=== PATIENT | male | born 1940 | race Caucasian/White ===

== ENCOUNTER → 2016-11-16 | Outpatient (CLI) | payer OTHER ==
[~2016-11-16] MED LIST: ASPEC81 PO; CALC-354 PO; CALC1CAP36 PO; CHOL100010 PO; FLM4 PO; FLR1 PO; INSU1INJ15 SQ; INSUINJ12 SC; INSUINJ14 PO; LISI-789 PO; LSN5 PO; MECL1TAB40 PO; METO50TA7 PO; MISCCAP80 PO; MYCO1TAB7 PO; MYCO360T PO; NVLGI/PEN SC; PRED-301 PO; RPF/8 PO; TACR1CAP PO; VENL37.593 PO
[2016-11-16 09:48] LABS: ALT/SGPT 68 U/L (12-78); AST/SGOT 75 U/L (15-37); BLOOD UREA NITROGEN 21 mg/dl (7-18); BUN/CREATININE RATIO 14.2 (10-20); CARBON DIOXIDE 30 mmol/L (21-32); CHLORIDE 106 mmol/L (98-107); GLUCOSE 95 mg/dl (70-99); SODIUM 144 mmol/L (136-145)
[2016-11-16 09:51] LABS: ALB/GLOB RATIO 1.3 (0.9-2); ALKALINE PHOSPHATASE 96 U/L (45-117)
[2016-11-16 10:07] LABS: ESTIMATED AVERAGE GLUCOSE 114 mg/dl; HA1C FLAG Normal (Normal)
[2016-11-16 10:47] LABS: RATIO 576.2 mcg/mg (0-30.0)
== END | disposition home or self-care (01) ==
LOC: C.LAB1850 07:26
PROVIDERS: ATTEND Family Medicine
DX: I10 Essential (primary) hypertension (principal); E55.9 Vitamin D deficiency, unspecified; E11.21 Type 2 diabetes mellitus with diabetic nephropathy; Z94.4 Liver transplant status

== ENCOUNTER → 2016-11-22 | Outpatient (CLI) | payer OTHER ==
--- NOTE | 2016-11-22 11:48 | DIAGNOSTIC IMAGING REPORT ---
ULTRASOUND ABDOMEN COMPLETE CLINICAL HISTORY: Liver transplant. COMPARISON STUDY: Abdominal CT dated 01/24/2015. TECHNIQUE: Real-time, grayscale, and color flow sonography of the abdomen was performed. Images are reviewed in the transverse and longitudinal planes. FINDINGS: Liver: The liver is normal in size and echotexture, measuring 17.4 cm in length. There is no intrahepatic biliary ductal dilatation. The main portal vein is patent. Gallbladder: The gallbladder is surgically absent. The common bile duct measures up to 0.3 cm in diameter. Pancreas: Visualized portions of the pancreatic head and body are normal in appearance. Spleen: The spleen is enlarged, measuring 17.5 cm in length. Kidneys: The kidneys demonstrate cortical atrophy and are without hydronephrosis. The right kidney measures 10.9 cm in length and the left kidney measures 1.0 cm in length. No shadowing calculi are identified. Abdominal vasculature: Visualized portions of the IVC and abdominal aorta are normal in appearance. Ascites: None. IMPRESSION: 1. No acute sonographic abnormality. 2. The liver is normal in size and echotexture. 3. Splenectomy. Electronically signed by: Geo Ramos M.D. 11/22/2016 11:46 AM Dictated Date/Time: 11/22/2016 11:44 AM
--- NOTE | 2016-11-22 12:10 | DIAGNOSTIC IMAGING REPORT ---
DOPPLER ULTRASOUND OF THE HEPATIC AND PORTAL VASCULATURE CLINICAL HISTORY: Liver transplant. COMPARISON STUDY: Abdominal ultrasound performed concurrently on 11/22/[address] dated 01/24/2015. FINDINGS: Real-time, grayscale, and color Doppler sonography of the hepatic and portal vasculature is performed. The hepatic veins and portal veins are patent with normal venous waveforms and direction of flow. The splenic vein is patent. The IVC is clear as visualized. A hepatic artery was not identified. IMPRESSION: The hepatic and portal vessels are patent with normal direction of flow. See above. Electronically signed by: Geo Ramos M.D. 11/22/2016 12:09 PM Dictated Date/Time: 11/22/2016 12:07 PM
== END | disposition home or self-care (01) ==
LOC: C.ULTR 10:24
PROVIDERS: ATTEND Internal Medicine Gastroenterology
DX: Z94.4 Liver transplant status (principal)

== ENCOUNTER → 2016-12-31 | Outpatient (CLI) | payer OTHER ==
[2016-12-31 17:55] LABS: URINE APPEARANCE CLEAR (CLEAR); URINE BILIRUBIN NEG (NEG); URINE COLOR DK YELLOW; URINE NITRITE NEG (NEG); UROBILINOGEN NEG (NEG)
[2016-12-31 18:00] LABS: MANUAL MICROSCOPIC REQUIRED? NO; REVIEW REQ? NO
[2016-12-31 18:09] LABS: URINE TOTAL PROTEIN 144.4 mg/dl (0-11.9)
== END | disposition home or self-care (01) ==
LOC: C.LABPVFM 11:53
PROVIDERS: ATTEND Internal Medicine
DX: N18.3 Chronic kidney disease, stage 3 (moderate) (principal)

== ENCOUNTER → 2017-01-25 | Day surgery (SDC) | payer OTHER ==
[2017-01-13 15:37] VITALS: BMI 23.0
[~2017-01-25] VITALS: Ht 180.3 cm; Wt 75.0 kg
[~2017-01-25] MED LIST changes: -CHOL100010 PO; -INSUINJ14 PO; +LIDOCAINE HCL 2% 2 ML VIAL (20MG/ML) ONE; -LSN5 PO; +MIDAZOLAM HCL 1 MG/ML 2ML VIAL ONE; -MYCO1TAB7 PO; +ONDANSETRON INJ 2 MG/ML 2 ML VIAL ONE; +PROPOFOL IV EMULSION 10 MG/ML 20 ML VIAL IV ONE; -RPF/8 PO; +SODIUM CHLORIDE 0.9% 500ML 500 ML IV ONE
--- NOTE | 2017-01-25 08:29 | Endo History and Physical ---
History & Physical Date of Service: Jan 25, 2017. Chief Complaint: Screening and S/P Liver transplant Referring Physician: Emigdio Douglass, DO History of Present Illness 76 yo CM who presents for EGD and Colonoscopy secondary to screening and history of liver transplant. Past Medical History Diabetes, Hypertension Past Surgical History Hx Cardiac Surgery: No Hx Internal Defibrillator: No Hx Pacemaker: No Hx Abdominal Surgery: Yes (LIVER TRANSPLANT, RT/LEFT INGUINAL HERNIA) Hx of Implantable Prosthesis: No Hx Post-Op Nausea and Vomiting: No Hx Cancer Surgery: Yes (2 MOHS PROCEDURE (HEAD/FACE)) Hx Thoracic Surgery: No Hx Orthopedic: No (LUMBAR FUSION (HARDWARE)) Hx Urinary Tract Surgery: No Family History None Social History Smoking Status: Former Smoker Hx Substance Use: No Hx Alcohol Use: No Allergies Coded Allergies: Aspirin (Verified Allergy, Unknown, high doses contrindicated d/t hx liver transplant, 01/25/17) Ibuprofen (Verified Adverse Reaction, Unknown, not to take due to transplant, 01/25/17) Current Medications Reported Home Medications Medications Dose Route/Sig Max Daily Dose Days Date Category Dose Instructions Venlafaxine Extended Rel (Venlafaxine Hcl) 37.5 Mg Cap 37.5 Mg PO QAM 01/13/17 Reported Tamsulosin HCl 0.4 Mg Cap 1 Cap PO QPM 01/13/17 Reported Prograf (Tacrolimus) 1 Mg Cap 1 Dose PO BID 01/13/17 Reported TAKES 3 CAP IN AM TAKES 2 CAP IN PM Probiotic (Probiotic Product) 1 Cap Cap 1 Cap PO QAM 01/13/17 Reported Prednisone 5 Mg Tab 5 Mg PO QAM 01/13/17 Reported Novolog Flexpen (Insulin Aspart) 100 Units/Ml Inj 1 Dose SC AC 01/13/17 Reported PER SLIDING SCALE Myfortic (Mycophenolate Sodium) 360 Mg Tab 1 Tab PO BID 01/13/17 Reported Toprol-Xl (Metoprolol Succinate) 50 Mg Tabcr 50 Mg PO QAM 01/13/17 Reported Meclizine HCl 12.5 Mg Tab 1 Tab PO TID PRN 10 01/13/17 Reported Zestril (Lisinopril) 2.5 Mg Tab 1 Tab PO QAM 01/13/17 Reported Calcitriol 0.25 Mcg Cap 1 Cap PO 3XWK 01/13/17 Reported Levemir (Insulin Detemir) Inj 6 Units SC QPM 01/24/15 Reported Caltrate 600+D (Calcium Carbonate-Cholecalcife) 1 Tab Tab 1 Tab PO QAM 09/13/14 Reported Levemir Pen (Insulin Detemir) 100 Unit/ Inj 11 Units SQ QAM 09/13/14 Reported Ecotrin Or Generic * (Aspirin) 81 Mg Ectab 81 Mg PO QAM 03/19/11 Reported Florinef * (Fludrocortisone Acetate) 0.1 Mg Tab 0.1 Mg PO QAM 05/31/10 Reported Vital Signs Weight (Kilograms): 75 Height (Feet): 5 Height (Inches): 11 Physical Exam General Appearance: WD/WN, no apparent distress Respiratory/Chest: Auscultation: breath sounds normal Cardiovascular: Heart Auscultation: RRR Abdomen: Bowel Sounds: normal Inspection & Palpation: soft, non-distended, no tenderness, guarding & rebound Assessment and Plan Assessment: 76 yo CM who presents for EGD and Colonoscopy secondary to screening and history of liver transplant. Plan: Proceed with EGD and colonoscopy.
[2017-01-25 08:31] VITALS: Ht 180.3 cm; Wt 75.0 kg
--- NOTE | 2017-01-25 10:03 | GI REPORT ---
Procedure Date: 01/25/2017 9:31 AM Procedure: Upper GI endoscopy Indications: Screening procedure Medicines: Monitored Anesthesia Care Complications: No immediate complications. Estimated Blood Loss: Estimated blood loss: none. Procedure: Pre-Anesthesia Assessment: - Prior to the procedure, a History and Physical was performed, and patient medications and allergies were reviewed. The patient's tolerance of previous anesthesia was also reviewed. The risks and benefits of the procedure and the sedation options and risks were discussed with the patient. All questions were answered, and informed consent was obtained. Prior Anticoagulants: The patient has taken aspirin, last dose was day of procedure. ASA Grade Assessment: III - A patient with severe systemic disease. After reviewing the risks and benefits, the patient was deemed in satisfactory condition to undergo the procedure. After obtaining informed consent, the endoscope was passed under direct vision. Throughout the procedure, the patient's blood pressure, pulse, and oxygen saturations were monitored continuously. The scope was introduced through the mouth, and advanced to the second part of duodenum. The upper GI endoscopy was accomplished without difficulty. The patient tolerated the procedure well. Findings: The esophagus was normal. The stomach was normal. The examined duodenum was normal. Impression: - Normal esophagus. - Normal stomach. - Normal examined duodenum. - No specimens collected. Recommendation: - Resume previous diet. - Continue present medications. - Return to GI office as previously scheduled. Emigdio Douglass, 01/25/2017 10:03:06 AM This report has been signed electronically. Note Initiated On: 01/25/2017 9:31 AM I attest to the content of the Intraoperative Record and orders documented therein, exceptions below
--- NOTE | 2017-01-25 10:09 | GI REPORT ---
Procedure Date: 01/25/2017 9:47 AM Procedure: Colonoscopy Indications: History of liver transplant Medicines: Monitored Anesthesia Care Complications: No immediate complications. Estimated Blood Loss: Estimated blood loss: none. Procedure: Pre-Anesthesia Assessment: - Prior to the procedure, a History and Physical was performed, and patient medications and allergies were reviewed. The patient's tolerance of previous anesthesia was also reviewed. The risks and benefits of the procedure and the sedation options and risks were discussed with the patient. All questions were answered, and informed consent was obtained. Prior Anticoagulants: The patient has taken aspirin, last dose was day of procedure. ASA Grade Assessment: III - A patient with severe systemic disease. After reviewing the risks and benefits, the patient was deemed in satisfactory condition to undergo the procedure. After I obtained informed consent, the scope was passed under direct vision. Throughout the procedure, the patient's blood pressure, pulse, and oxygen saturations were monitored continuously. The scope was introduced through the anus and advanced to the terminal ileum. The colonoscopy was performed without difficulty. The patient tolerated the procedure well. The quality of the bowel preparation was good. The terminal ileum, ileocecal valve, appendiceal orifice, and rectum were photographed. Findings: A 5 mm polyp was found in the ascending colon. The polyp was sessile. The polyp was removed with a hot snare. Resection and retrieval were complete. Multiple small-mouthed diverticula were found in the sigmoid colon. Non-bleeding internal hemorrhoids were found during retroflexion. The hemorrhoids were small. Impression: - One 5 mm polyp in the ascending colon, removed with a hot snare. Resected and retrieved. - Diverticulosis in the sigmoid colon. - Non-bleeding internal hemorrhoids. Recommendation: - Resume previous diet. - Continue present medications. - Repeat colonoscopy for surveillance based on pathology results. - Return to primary care physician as previously scheduled. Emigdio Douglass DO 01/25/2017 10:08:56 AM This report has been signed electronically. Note Initiated On: 01/25/2017 9:47 AM I attest to the content of the Intraoperative Record and orders documented therein, exceptions below
--- NOTE | 2017-01-25 10:11 | Discharge Instructions ---
Endoscopy Patient Instructions Date / Procedure(s) Performed Jan 25, 2017. Colonoscopy, EGD Allergy Information Coded Allergies: Aspirin (Verified Allergy, Unknown, high doses contrindicated d/t hx liver transplant, 01/25/17) Ibuprofen (Verified Adverse Reaction, Unknown, not to take due to transplant, 01/25/17) Discharge Date / Findings Jan 25, 2017. EGD: Normal Colonoscopy: Colon polyp, diverticulosis, Internal hemorrhoids Medication Instructions Stopped Medication(s): took only AM medication with sip of water at 0600 OK to resume all medications today as prescribed. Reported Home Medications Medications Dose Route/Sig Max Daily Dose Days Date Category Dose Instructions Venlafaxine Extended Rel (Venlafaxine Hcl) 37.5 Mg Cap 37.5 Mg PO QAM 01/13/17 Reported Tamsulosin HCl 0.4 Mg Cap 1 Cap PO QPM 01/13/17 Reported Prograf (Tacrolimus) 1 Mg Cap 1 Dose PO BID 01/13/17 Reported TAKES 3 CAP IN AM TAKES 2 CAP IN PM Probiotic (Probiotic Product) 1 Cap Cap 1 Cap PO QAM 01/13/17 Reported Prednisone 5 Mg Tab 5 Mg PO QAM 01/13/17 Reported Novolog Flexpen (Insulin Aspart) 100 Units/Ml Inj 1 Dose SC AC 01/13/17 Reported PER SLIDING SCALE Myfortic (Mycophenolate Sodium) 360 Mg Tab 1 Tab PO BID 01/13/17 Reported Toprol-Xl (Metoprolol Succinate) 50 Mg Tabcr 50 Mg PO QAM 01/13/17 Reported Meclizine HCl 12.5 Mg Tab 1 Tab PO TID PRN 10 01/13/17 Reported Zestril (Lisinopril) 2.5 Mg Tab 1 Tab PO QAM 01/13/17 Reported Calcitriol 0.25 Mcg Cap 1 Cap PO 3XWK 01/13/17 Reported Levemir (Insulin Detemir) Inj 6 Units SC QPM 01/24/15 Reported Caltrate 600+D (Calcium Carbonate-Cholecalcife) 1 Tab Tab 1 Tab PO QAM 09/13/14 Reported Levemir Pen (Insulin Detemir) 100 Unit/ Inj 11 Units SQ QAM 09/13/14 Reported Ecotrin Or Generic * (Aspirin) 81 Mg Ectab 81 Mg PO QAM 03/19/11 Reported Florinef * (Fludrocortisone Acetate) 0.1 Mg Tab 0.1 Mg PO QAM 05/31/10 Reported Provider Instructions Activity Restrictions - No exercising or heavy lifting for 24 hours. - Do not drink alcohol the day of the procedure. - Do not drive a car or operate machinery until the day after the procedure. - Do not make any important decisions or sign important papers in 24 hours after the procedure. Following Day: - Return to full activity which may include returning to work/school. Diet Start your diet with liquids and light foods (jello, soup, juice, toast). Then eat your usual diet if not nauseated. Treatment For Common After Affects For mild abdominal pain, bloating, or excessive gas: - Rest - Eat lightly - Lie on right side Follow-Up Information Follow-up with Dr. Workman as scheduled Anesthesia Information What You Should Know You have had a procedure that required some medicine to reduce anxiety and discomfort. This treatment is called moderate sedation. After receiving the treatment, you may be sleepy, but you will be able to breathe on your own. The effects of the treatment may last for several hours. Follow these instructions along with Activity/Diet recommendations noted above: * Do NOT do anything where dizziness or clumsiness would be dangerous. * Rest quietly at home today, then you can be up and about tomorrow. * Have a responsible person stay with you the rest of today. * You may have had an I.V. today. If so, you may take the dressing off later today. Recommendations Call your doctor if: * Trouble breathing * Continuous vomiting for more than 24 hours * Temperature above 101 degrees * Severe abdominal pain or bloating * Pain not relieved by pain medicine ordered * There is increased drainage or redness from any incision * A large amount of rectal bleeding greater than 2-3 tablespoons. (If you had a polyp/s removed or have hemorrhoids, a small amount of blood - from the rectum is to be expected.) * You have any unanswered questions or concerns. IN THE EVENT OF A SERIOUS EMERGENCY, GO TO THE NEAREST EMERGENCY ROOM Your discharge instructions were prepared by provider Emigdio Douglass. Patient Instructions Signature Page Lawrence Herrera Patient (or Guardian) Signature/Date: I have read and understand the instructions given to me by my caregivers. Caregiver/RN/Doctor Signature/Date: The above-named patient and/or guardian has received patient instructions on this date. + Original Patient Signature Page (only) stays with chart. Please make copy for patient.
[2017-01-25 10:15] VITALS: BP 160/91; PULSE 104; O2SAT 97
--- NOTE | 2017-01-25 13:50 | Anesthesiology Progress Note ---
Anesthesia Post Op Note Date & Time Jan 25, 2017 at 13:50 Vital Signs Pain Intensity: 0 Vital Signs Past 12 Hours Date Time Temp Pulse Resp B/P Pulse Ox O2 Delivery O2 Flow Rate FiO2 01/25/17 10:15 104 20 160/91 97 Room Air 01/25/17 10:02 106 20 158/77 95 Room Air 01/25/17 08:38 36.8 103 20 169/90 96 Room Air Notes Mental Status: alert / awake / arousable, participated in evaluation Pt Amnestic to Procedure: Yes Nausea / Vomiting: adequately controlled Pain: adequately controlled Airway Patency, RR, SpO2: stable & adequate BP & HR: stable & adequate Hydration State: stable & adequate Anesthetic Complications: no major complications apparent
== END | disposition home or self-care (01) ==
LOC: C.GI 08:07
PROVIDERS: ATTEND Internal Medicine
DX: D12.2 Benign neoplasm of ascending colon (principal); K57.30 Diverticulosis of large intestine without perforation or abscess without bleeding; K64.8 Other hemorrhoids; Z94.4 Liver transplant status; Z13.810 Encounter for screening for upper gastrointestinal disorder; E11.9 Type 2 diabetes mellitus without complications; I10 Essential (primary) hypertension; Z87.891 Personal history of nicotine dependence; Z79.899 Other long term (current) drug therapy; Z79.4 Long term (current) use of insulin; Z79.82 Long term (current) use of aspirin

== ENCOUNTER → 2017-02-14 | Outpatient (CLI) | payer OTHER ==
[~2017-02-14] MED LIST changes: +ASPI-435 PO; +CALC-5 PO; +CEPH-571 PO; +DXY100 PO; +FLUD0.1T10 PO; +INSU3INJ3 SQ; -LIDOCAINE HCL 2% 2 ML VIAL (20MG/ML) ONE; +LVMIPEN SQ.; +METO25TA3 PO; -MIDAZOLAM HCL 1 MG/ML 2ML VIAL ONE; +NVLGI/PEN SQ; +NVLGIPEN SQ; -ONDANSETRON INJ 2 MG/ML 2 ML VIAL ONE; -PROPOFOL IV EMULSION 10 MG/ML 20 ML VIAL IV ONE; -SODIUM CHLORIDE 0.9% 500ML 500 ML IV ONE; +URSO300C8 PO
--- NOTE | 2017-02-14 14:11 | DIAGNOSTIC IMAGING REPORT ---
CHEST 2 VIEWS ROUTINE HISTORY: Fever and chills COMPARISON: Chest 01/21/2016. FINDINGS: The lungs are clear. Cardiac silhouette is borderline enlarged, unchanged. No pleural effusions. No pneumothorax. Stable blunting the left lateral costophrenic sulcus. IMPRESSION: No significant change compared to the prior study. No acute process. Electronically signed by: Austin Mendoza M.D. 02/14/2017 2:08 PM Dictated Date/Time: 02/14/2017 2:07 PM
[2017-02-14 17:31] LABS: BASO % 0.3 %; BASO ABS # 0.01 K/uL (0-0.2); COMPLETE YES; EOS % 1.6 %; HEMATOCRIT 39.8 % (42-52); IG% 0.5 %; LYMPH % 23.2 %; LYMPH ABS # 0.86 K/uL (1.2-3.4); MEAN CORPUSCULAR HEMOGLOBIN 30.1 pg (25-34); MEAN CORPUSCULAR HGB CONC 33.4 g/dl (32-36); MEAN PLATELET VOLUME 10.7 fL (7.4-10.4); MONO % 12.1 %; NEUT % 62.3 %; PLATELET COUNT 94 K/uL (130-400); RED BLOOD COUNT 4.42 M/uL (4.7-6.1); WHITE BLOOD COUNT 3.71 K/uL (4.8-10.8)
[2017-02-15 06:30] LABS: ESTIMATED AVERAGE GLUCOSE 111 mg/dl; HA1C FLAG Normal (Normal)
== END | disposition home or self-care (01) ==
LOC: C.RADPV 13:17
PROVIDERS: ATTEND Family Medicine
DX: R50.9 Fever, unspecified (principal); N18.3 Chronic kidney disease, stage 3 (moderate); E11.22 Type 2 diabetes mellitus with diabetic chronic kidney disease

== ENCOUNTER 2017-03-11 19:35 | Emergency (ER) | payer OTHER ==
[~2017-03-11] VITALS: Ht 180.3 cm; Wt 74.7 kg
[~2017-03-11 19:35] MED LIST changes: -ASPI-435 PO; -CALC-5 PO; -CEPH-571 PO; -DXY100 PO; -FLUD0.1T10 PO; -INSU3INJ3 SQ; -LVMIPEN SQ.; -METO25TA3 PO; -NVLGI/PEN SQ; -NVLGIPEN SQ; -URSO300C8 PO
[2017-03-11 19:41] VITALS: Ht 180.3 cm; Wt 74.7 kg
[2017-03-11] MEDS ORDERED: SODIUM CHLORIDE 0.9% 1000ML 1,000 ML IV STA (19:59)
[2017-03-11] MEDS ORDERED: SODIUM CHLORIDE 0.9% 1000ML 500 ML IV STA (19:59)
[2017-03-11 20:30] LABS: HEMATOCRIT 39.1 % (42-52); MEAN CELL VOLUME 87.1 fL (80-100); MEAN CORPUSCULAR HEMOGLOBIN 29.2 pg (25-34); MEAN CORPUSCULAR HGB CONC 33.5 g/dl (32-36); RED BLOOD COUNT 4.49 M/uL (4.7-6.1); WHITE BLOOD COUNT 5.42 K/uL (4.8-10.8)
[2017-03-11 20:44] LABS: INR 1.1 (0.9-1.1); PARTIAL THROMBOPLASTIN RATIO 1.1; PROTHROMBIN TIME (PATIENT) 11.3 SECONDS (9.0-12.0)
[2017-03-11 20:46] LABS: MANUAL MICROSCOPIC REQUIRED? NO; REVIEW REQ? NO; URINE APPEARANCE CLEAR (CLEAR); URINE BILIRUBIN 1+ (NEG); URINE COLOR DK YELLOW; URINE NITRITE NEG (NEG); URINE SPECIFIC GRAVITY 1.019 (1.000-1.030); UROBILINOGEN NEG (NEG); ZZUR CULT IF INDIC CLEAN CATCH NO
[2017-03-11 20:49] LABS: ALT/SGPT 322 U/L (12-78); AST/SGOT 424 U/L (15-37); BLOOD UREA NITROGEN 39 mg/dl (7-18); BUN/CREATININE RATIO 23.2 (10-20); CALCIUM 8.1 mg/dl (8.5-10.1); CARBON DIOXIDE 29 mmol/L (21-32); CHLORIDE 108 mmol/L (98-107); GLUCOSE 100 mg/dl (70-99); POTASSIUM 4.3 mmol/L (3.5-5.1); SODIUM 143 mmol/L (136-145)
[2017-03-11 21:00] LABS: COMPLETE YES; EOS % 0.9 %; IG% 0.4 %; LYMPH % 11.3 %; LYMPH ABS # 0.61 K/uL (1.2-3.4); MONO % 7.9 %; NEUT % 79.5 %; PLATELET COUNT 88 K/uL (130-400); PLT ESTIMATE DECREASED
[2017-03-11] MEDS ORDERED: CEFEPIME IV 1,000 MG in DEXTROSE 5% 100ML 100 ML IV STA (21:02)
--- NOTE | 2017-03-11 21:25 | EMERGENCY ROOM VISIT NOTE ---
History Report prepared by Cheyenne: Blanka Demarco Under the Supervision of: Dr. Geo Stephenson M.D. First contact with patient: 19:47 Chief Complaint: FEVER Stated Complaint: FEVER, UPPER STOMACH SORE THROAT History of Present Illness The patient is a 76 year old male who presents to the Emergency Room with complaints of persistent abdominal pain starting this morning. Yesterday he was feeling well. This morning he had some pain across his upper abdomen. At worst the pain was a 5/10 in severity. The pain has subsided somewhat now. This evening he had a fever of 100.7 and chills. He also reports nausea and a sore throat. He denies any rhinorrhea, cough, SOB, rash, vomiting, changes in bowel movements, or urinary symptoms. He took 2 Tylenol at 1800 for his fever. He is a liver transplant patient and is on immunosuppressants. He has had a cholecystectomy and appendectomy. Source of History: patient Onset: this morning Position: abdomen (upper) Symptom Intensity: 5/10 at worst Quality: other (pain) Timing: other (persistent) Associated Symptoms: + chills, + fevers, + nausea, + sorethroat, No SOB, No cough, No rash, No urinary symptoms, No vomiting Note: Pt denies changes in bowel movement, rhinorrhea. Review of Systems See HPI for pertinent positives & negatives. A total of 10 systems reviewed and were otherwise negative. Past Medical & Surgical Medical Problems: (1) Benign hypertension (2) Diabetes mellitus (3) Diverticulitis (4) Transplantation of liver Family History Diabetes mellitus FH: heart disease Hypertension Social History Smoking Status: Former Smoker Alcohol Use: none Drug Use: none Marital Status: Housing Status: lives with family Occupation Status: retired Current/Historical Medications Scheduled Aspirin Enteric Coated (Ecotrin Or Generic *), 81 MG PO QAM Calcitriol (Calcitriol), 1 CAP PO 3XWK Calcium Carbonate-Cholecalcife (Caltrate 600+D), 1 TAB PO QAM Fludrocortisone Acetate (Florinef *), 0.1 MG PO QAM Insulin Aspart (Novolog Flexpen), 1 DOSE SC AC Insulin Detemir (Levemir Pen), 9 UNITS SQ QAM Insulin Detmir (Levemir), 8 UNITS SC QPM Lisinopril (Zestril), 1 TAB PO QAM Metoprolol Succ (Toprol Xl) (Toprol-Xl), 50 MG PO QAM Mycophenolate Sodium (Myfortic), 1 TAB PO BID Prednisone (Prednisone), 5 MG PO QAM Probiotic Product (Probiotic), 1 CAP PO QAM Tacrolimus (Prograf), 1 DOSE PO BID Tamsulosin HCl (Tamsulosin HCl), 1 CAP PO QPM Venlafaxine Hcl (Venlafaxine Extended Rel), 37.5 MG PO QAM Scheduled PRN Meclizine HCl (Meclizine HCl), 1 TAB PO TID PRN for VERTIGO Allergies Coded Allergies: Aspirin (Verified Allergy, Unknown, high doses contrindicated d/t hx liver transplant, 03/11/17) Ibuprofen (Verified Adverse Reaction, Unknown, not to take due to transplant, 03/11/17) Physical Exam Vital Signs Date Time Temp Pulse Resp B/P Pulse Ox O2 Delivery O2 Flow Rate FiO2 03/11/17 22:20 124 20 164/92 96 Room Air 03/11/17 21:28 113 20 147/91 95 Room Air 03/11/17 19:41 37.4 122 20 150/88 97 Room Air Physical Exam GENERAL: Patient is in no acute distress. HEENT: No acute trauma, normocephalic atraumatic, mucous membranes moist, no nasal congestion, no scleral icterus. NECK: No stridor, no adenopathy, no meningismus, trachea is midline. LUNGS: Clear to auscultation bilaterally, no wheeze, no rhonchi, breath sounds equal. HEART: Tachycardic rate with regular rhythm, no murmurs. ABDOMEN: Soft, diffusely mildly tender, bowel sounds positive, no hernias, no peritonitis. EXTREMITIES: No cyanosis or edema, full range of motion of all the joints without pain or difficulty, no signs for acute trauma. NEUROLOGIC: Oriented x 3, no acute motor or sensory deficits, no focal weakness. SKIN: No rash, no jaundice, no diaphoresis. Medical Decision & Procedures ER Provider Diagnostic Interpretation: X-ray results as stated below per interpretation by me and the radiologist: ABDOMEN 2VIEW W/PA CHEST RTN CLINICAL HISTORY: Abdominal pain, nausea, vomiting. COMPARISON STUDY: 02/14/2017 FINDINGS: The heart is mildly enlarged. There is minor basilar interstitial thickening on the right. There is no lobar consolidation. There is no free air. Erect and supine views the abdomen reveal postsurgical changes within the lumbar spine. There are no transition zones indicate bowel obstruction. There are vascular calcifications present. There are few scattered right abdominal air-fluid levels. IMPRESSION: No evidence of bowel obstruction. No evidence of free air. Electronically signed by: Stewart nEciso M.D. 03/11/2017 9:22 PM Dictated Date/Time: 03/11/2017 9:21 PM Laboratory Results 03/11/17 20:18 Red Blood Count 4.49, Mean Corpuscular Volume 87.1, Mean Corpuscular Hemoglobin 29.2, Mean Corpuscular Hemoglobin Concent 33.5, Mean Platelet Volume 10.0, Neutrophils (%) (Auto) 79.5, Lymphocytes (%) (Auto) 11.3, Monocytes (%) (Auto) 7.9, Eosinophils (%) (Auto) 0.9, Basophils (%) (Auto) 0.0, Neutrophils # (Auto) 4.31, Lymphocytes # (Auto) 0.61, Monocytes # (Auto) 0.43, Eosinophils # (Auto) 0.05, Basophils # (Auto) 0.00 03/11/17 20:18 Test 03/11/17 20:10 03/11/17 20:17 03/11/17 20:18 Urine Color DK YELLOW Urine Appearance CLEAR (CLEAR) Urine pH 7.0 (4.5-7.5) Urine Specific [place] 1.019 (1.000-1.030) Urine Protein 2+ (NEG) Urine Glucose (UA) NEG (NEG) Urine Ketones NEG (NEG) Urine Occult Blood NEG (NEG) Urine Nitrite NEG (NEG) Urine Bilirubin 1+ (NEG) Urine Urobilinogen NEG (NEG) Urine Leukocyte Esterase NEG (NEG) Urine WBC (Auto) 1-5 /hpf (0-5) Urine RBC (Auto) 0-4 /hpf (0-4) Urine Hyaline Casts (Auto) 1-5 /lpf (0-5) Urine Epithelial Cells (Auto) 5-10 /lpf (0-5) Urine Bacteria (Auto) NEG (NEG) Lactic Acid Level 0.9 mmol/L (0.4-2.0) White Blood Count 5.42 K/uL (4.8-10.8) Red Blood Count 4.49 M/uL (4.7-6.1) Hemoglobin 13.1 g/dL (14.0-18.0) Hematocrit 39.1 % (42-52) Mean Corpuscular Volume 87.1 fL (80-100) Mean Corpuscular Hemoglobin 29.2 pg (25-34) Mean Corpuscular Hemoglobin Concent 33.5 g/dl (32-36) Platelet Count 88 K/uL (130-400) Mean Platelet Volume 10.0 fL (7.4-10.4) Neutrophils (%) (Auto) 79.5 % Lymphocytes (%) (Auto) 11.3 % Monocytes (%) (Auto) 7.9 % Eosinophils (%) (Auto) 0.9 % Basophils (%) (Auto) 0.0 % Neutrophils # (Auto) 4.31 K/uL (1.4-6.5) Lymphocytes # (Auto) 0.61 K/uL (1.2-3.4) Monocytes # (Auto) 0.43 K/uL (0.11-0.59) Eosinophils # (Auto) 0.05 K/uL (0-0.5) Basophils # (Auto) 0.00 K/uL (0-0.2) RDW Standard Deviation 45.7 fL (36.4-46.3) RDW Coefficient of Variation 14.4 % (11.5-14.5) Immature Granulocyte % (Auto) 0.4 % Immature Granulocyte # (Auto) 0.02 K/uL (0.00-0.02) Platelet Estimate DECREASED Prothrombin Time 11.3 SECONDS (9.0-12.0) Prothromb Time International Ratio 1.1 (0.9-1.1) Activated Partial Thromboplast Time 27.3 SECONDS (21.0-31.0) Partial Thromboplastin Ratio 1.1 Anion Gap 6.0 mmol/L (3-11) Est Creatinine Clear Calc Drug Dose 39.1 ml/min Estimated GFR () 44.4 Estimated GFR (Non- 38.3 BUN/Creatinine Ratio 23.2 (10-20) Calcium Level 8.1 mg/dl (8.5-10.1) Total Bilirubin 2.9 mg/dl (0.2-1) Aspartate Amino Transf (AST/SGOT) 424 U/L (15-37) Alanine Aminotransferase (ALT/SGPT) 322 U/L (12-78) Alkaline Phosphatase 175 U/L (45-117) Troponin I < 0.015 ng/ml (0-0.045) Total Protein 6.5 gm/dl (6.4-8.2) Albumin 3.6 gm/dl (3.4-5.0) Globulin 2.9 gm/dl (2.5-4.0) Albumin/Globulin Ratio 1.2 (0.9-2) Lipase 88 U/L (73-393) Laboratory results reviewed by me. Medications Administered Medications (Trade) Dose Ordered Sig/Michael Route Start Time Stop Time Status Last Admin Dose Admin Sodium Chloride 500 ml @ 999 mls/hr Q31M STAT IV 03/11/17 19:59 03/11/17 20:29 DC 03/11/17 20:30 999 MLS/HR Sodium Chloride 1,000 ml @ 200 mls/hr Q5H STAT IV 03/11/17 19:59 03/12/17 00:58 03/11/17 20:30 200 MLS/HR Cefepime HCl 1000 mg/Dextrose 111.3 ml @ 200 mls/hr NOW STAT IV 03/11/17 21:02 03/11/17 21:35 DC 03/11/17 21:29 200 MLS/HR Sodium Chloride (Nss 500ml) 500 ml @ 999 mls/hr Q31M STAT IV 03/11/17 21:41 03/11/17 22:11 DC 03/11/17 21:45 999 MLS/HR ECG Indication: abdominal pain Rate (beats per minute): 119 Rhythm: sinus tachycardia Findings: no acute ischemic change, no ectopy ED Course 1950: The patient was evaluated in room C9. A complete history and physical exam was performed. 1958: NSS 1000 ml @ 200 mls/hr IV, NSS 500 ml @ 999 mls/hr IV. 2101: Cefepime HCl 1000 mg/Dextrose 111.3 ml @ 200 mls/hr IV. 2140: NSS 500 ml @ 999 mls/hr IV. 3: I reevaluated the patient. He is resting comfortably. We are working on getting a hold of his transplant doctor. 4: I discussed the patient's case with Dr. Callejas. She would like the patient to be transferred to their facility by ground ambulance. 2234: I reevaluated the patient. He is resting comfortably. I discussed the results and treatment plan with the patient. He verbalized understanding and agreement. The patient will be transferred to [facility] by ground ambulance. Medical Decision Differential diagnosis: sepsis, bacteremia, pneumonia, UTI, dehydration, electrolyte imbalance, anemia, viral illness. There is no leukocytosis or concerning anemia. Platelet count slightly low but about baseline for the patient. There is some renal insufficiency by our testing, no significant electrolyte abnormality requiring correction. A hepatitis was present and this is a new finding for the patient. No evidence for pancreatitis. Urinalysis does not show evidence for infection. Chest x- ray does not show pneumonia or free air. Abdominal series shows no bowel obstruction, no free air. EKG shows sinus tachycardia, no acute ischemia. Urine culture and blood cultures are pending. On exam, there was no cellulitis. The patient received IV saline, he was given IV cefepime for antibiotic coverage. The patient is comfortable, he is in no significant distress. He states that his tachycardia is common and should not be of significant concern. I talked to the transplant center in [place]. The patient is being transferred there for possible biliary obstruction or even rejection. The transfer paperwork has been signed, the orders for transfer have been written. I updated the patient and his family on all the findings. Consults Time Called: 2218 Consulting Physician: Dr. Clalejas, [facility] Returned Call: [phone] I discussed the patient's case with Dr. Callejas. She would like the patient to be transferred to their facility by ground ambulance. Impression Primary Impression: Fever Additional Impressions: Upper abdominal pain Elevated liver enzymes History of liver transplant Scribe Attestation The scribe's documentation has been prepared under my direction and personally reviewed by me in its entirety. I confirm that the note above accurately reflects all work, treatment, procedures, and medical decision making performed by me. Departure Information Dispostion Transfer Acute Care Facility Referrals Cesilia Workman M.D. (PCP) Patient Instructions My [facility] Problem Qualifiers
[2017-03-11] MEDS ORDERED: SODIUM CHLORIDE 0.9% 500ML 500 ML IV STA (21:41)
[2017-03-11 22:07] LABS: ALB/GLOB RATIO 1.2 (0.9-2); ALKALINE PHOSPHATASE 175 U/L (45-117)
[2017-03-12] MEDS ORDERED: ONDANSETRON INJ 2 MG/ML 2 ML VIAL IV STA (00:35)
[2017-03-12] MEDS ORDERED: MoRPHine SULFATE 4 MG/ML 1 ML CARP\\VIAL IV STA (00:35)
[2017-03-12 00:43] VITALS: TEMP 37
[2017-03-12 01:53] VITALS: BP 126/59; PULSE 99; O2SAT 96
[2017-10-04] MEDS ORDERED: CEPH-571 PO ×2 (12:24→12:25)
== END 2017-03-12 01:54 | disposition short-term general hospital (02) ==
LOC: C.EDB 19:36 → C.EDC 03-12 01:54
DX: R50.9 Fever, unspecified (principal); R10.10 Upper abdominal pain, unspecified; R94.5 Abnormal results of liver function studies; Z94.4 Liver transplant status; R00.0 Tachycardia, unspecified; R11.0 Nausea; J02.9 Acute pharyngitis, unspecified; I10 Essential (primary) hypertension; E11.9 Type 2 diabetes mellitus without complications; K57.90 Diverticulosis of intestine, part unspecified, without perforation or abscess without bleeding; Z79.4 Long term (current) use of insulin; Z79.82 Long term (current) use of aspirin; Z79.899 Other long term (current) drug therapy; Z87.891 Personal history of nicotine dependence; Z82.49 Family history of ischemic heart disease and other diseases of the circulatory system; Z83.3 Family history of diabetes mellitus

== ENCOUNTER → 2017-03-16 | Outpatient (CLI) | payer OTHER ==
[~2017-03-16] MED LIST changes: +ASPI-435 PO; +CALC-5 PO; +CEPH-571 PO; +DXY100 PO; +FLUD0.1T10 PO; +INSU3INJ3 SQ; +LVMIPEN SQ.; +METO25TA3 PO; +NVLGI/PEN SQ; +NVLGIPEN SQ; +URSO300C8 PO
[2017-03-16 09:38] LABS: HEMATOCRIT 36.8 % (42-52); MEAN CELL VOLUME 89.5 fL (80-100); MEAN CORPUSCULAR HEMOGLOBIN 28.7 pg (25-34); MEAN CORPUSCULAR HGB CONC 32.1 g/dl (32-36); RED BLOOD COUNT 4.11 M/uL (4.7-6.1); WHITE BLOOD COUNT 2.89 K/uL (4.8-10.8)
[2017-03-16 09:43] LABS: PLATELET COUNT 94 K/uL (130-400)
[2017-03-16 10:16] LABS: BASO % 0.3 %; BASO ABS # 0.01 K/uL (0-0.2); COMPLETE YES; EOS % 2.8 %; LYMPH % 30.8 %; LYMPH ABS # 0.89 K/uL (1.2-3.4); MONO % 13.1 %
[2017-03-16 10:46] LABS: ALT/SGPT 111 U/L (12-78); AST/SGOT 43 U/L (15-37); BLOOD UREA NITROGEN 28 mg/dl (7-18); BUN/CREATININE RATIO 18.3 (10-20); CALCIUM 8.6 mg/dl (8.5-10.1); CARBON DIOXIDE 31 mmol/L (21-32); CHLORIDE 107 mmol/L (98-107); GLUCOSE 122 mg/dl (70-99); SODIUM 142 mmol/L (136-145)
[2017-03-16 10:49] LABS: ALB/GLOB RATIO 1.5 (0.9-2); ALKALINE PHOSPHATASE 127 U/L (45-117)
[2017-03-18 10:37] LABS: FK506 TACROLIMUS HIGHLY SENS 3.2 MCG/L (5-20)
== END | disposition home or self-care (01) ==
LOC: C.LAB1850 07:20
PROVIDERS: ATTEND Nurse Practitioner Women's Health
DX: Z94.4 Liver transplant status (principal); R94.5 Abnormal results of liver function studies

== ENCOUNTER → 2017-06-10 | Outpatient (CLI) | payer OTHER ==
[~2017-06-10] MED LIST changes: -ASPI-435 PO; -CALC-5 PO; -CEPH-571 PO; -DXY100 PO; -FLUD0.1T10 PO; -INSU3INJ3 SQ; -LVMIPEN SQ.; -METO25TA3 PO; -NVLGI/PEN SQ; -NVLGIPEN SQ; -URSO300C8 PO
[2017-06-10 18:04] LABS: ALT/SGPT 60 U/L (12-78); BLOOD UREA NITROGEN 32 mg/dl (7-18); BUN/CREATININE RATIO 21.5 (10-20); CALCIUM 8.8 mg/dl (8.5-10.1); CARBON DIOXIDE 28 mmol/L (21-32); CHLORIDE 107 mmol/L (98-107); GLUCOSE 109 mg/dl (70-99); POTASSIUM 4.8 mmol/L (3.5-5.1); SODIUM 140 mmol/L (136-145)
[2017-06-10 18:07] LABS: ALB/GLOB RATIO 1.2 (0.9-2); ALKALINE PHOSPHATASE 99 U/L (45-117); AST/SGOT 36 U/L (15-37)
[2017-06-11 08:22] LABS: ESTIMATED AVERAGE GLUCOSE 111 mg/dl; HA1C FLAG Normal (Normal)
== END | disposition home or self-care (01) ==
LOC: C.LABPVFM 11:48
PROVIDERS: ATTEND Family Medicine
DX: Z12.5 Encounter for screening for malignant neoplasm of prostate (principal); N40.0 Benign prostatic hyperplasia without lower urinary tract symptoms; Z94.4 Liver transplant status; I10 Essential (primary) hypertension; I31.3 Pericardial effusion (noninflammatory); E11.29 Type 2 diabetes mellitus with other diabetic kidney complication

== ENCOUNTER → 2017-06-28 | Outpatient (CLI) | payer OTHER ==
[2017-06-30 17:30] LABS: HEP B QUANT <20 IU/mL (<20); HEP B QUANT LOG IU/ML <1.30 Log IU/mL (<1.30)
== END | disposition home or self-care (01) ==
LOC: C.LAB1850 07:51
PROVIDERS: ATTEND Specialist
DX: Z94.4 Liver transplant status (principal); D89.9 Disorder involving the immune mechanism, unspecified

== ENCOUNTER → 2017-08-01 | Outpatient (CLI) | payer OTHER | END | disposition home or self-care (01) | LOC: C.MAMM 13:27 | PROVIDERS: ATTEND Family Medicine | DX: M85.80 Other specified disorders of bone density and structure, unspecified site (principal); M81.0 Age-related osteoporosis without current pathological fracture ==

== ENCOUNTER → 2017-09-28 | Outpatient (CLI) | payer OTHER ==
[~2017-09-28] MED LIST changes: +ASPI-435 PO; +CALC-5 PO; +CEPH-571 PO; +DXY100 PO; +FLUD0.1T10 PO; +INSU3INJ3 SQ; +LVMIPEN SQ.; +METO25TA3 PO; -METO50TA7 PO; +METO50TA8 PO; +NVLGI/PEN SQ; +NVLGIPEN SQ; +URSO300C8 PO
== END | disposition home or self-care (01) ==
LOC: C.LABPVFM 11:35
PROVIDERS: ATTEND Family Medicine
DX: R35.0 Frequency of micturition (principal)

== ENCOUNTER 2017-10-02 22:50 | Inpatient (IN) | payer OTHER ==
[~2017-10-02] VITALS: Ht 180.3 cm; Wt 77.2 kg
[~2017-10-02 22:50] MED LIST changes: -ASPI-435 PO; -CALC-5 PO; -CEPH-571 PO; -DXY100 PO; -FLUD0.1T10 PO; -INSU3INJ3 SQ; -LVMIPEN SQ.; -METO25TA3 PO; +METO50TA7 PO; -METO50TA8 PO; -NVLGI/PEN SQ; -NVLGIPEN SQ; -URSO300C8 PO
--- NOTE | 2017-10-02 23:26 | EMERGENCY ROOM VISIT NOTE ---
History Report prepared by Cheyenne: Clark Linares Under the Supervision of: Dr. Emiliano Tang M.D. First contact with patient: 23:04 Chief Complaint: FEVER Stated Complaint: FEVER History of Present Illness The patient is a 77 year old male who presents to the Emergency Room with complaints of an intermittent fever that started a week ago. The patient states that he has been developing a fever every night, but admits that the fever would resolve the next morning. He is accompanied by his who states that his last fever was 101.2 at 2200. She states that the patient took Tylenol for his symptoms, with his last dose at 2200. 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 He states that during the summer the incision area became red. The patient states that his incision site started to leak pus and blood two weeks ago, which prompted him to visit his doctor 8 days ago. He reports that he was sent home with Keflex due to their concern of an infection. The patient states that he has also been urinating frequently recently, but admits he had testing done that was unremarkable. He admits to a history of Diabetes Mellitus and admits that his blood sugar levels have been high. He denies cough, ear ache, post nasal drip, headache, congestion, sore throat, chest pain, leg pain or swelling, urinary symptoms, back pain, abdominal pain, calf tenderness or swelling, rash, neck pain, mouth sores, and missing his medications. Source of History: patient, spouse/significant other Onset: a week ago Position: other (global) Quality: other (101.2) Timing: intermittent Modifying Factors (Relieving): tylenol Associated Symptoms: No headache, No sorethroat, No cough, No neck pain, No chest pain, No abdominal pain, No back pain, No urinary symptoms, No rash Review of Systems See HPI for pertinent positives & negatives. A total of 10 systems reviewed and were otherwise negative. Past Medical & Surgical Medical Problems: (1) Benign hypertension (2) Diabetes mellitus (3) Diverticulitis (4) Transplantation of liver Old medical records were reviewed. Nurse's notes were reviewed and I agree with. Family History Diabetes mellitus FH: heart disease Hypertension Social History Smoking Status: Former Smoker Alcohol Use: none Drug Use: none Marital Status: Housing Status: lives with family Occupation Status: retired Current/Historical Medications Scheduled Aspirin (Aspirin 81), 81 MG PO DAILY Calcitriol (Calcitriol), 1 CAP PO 3XWK Calcium-Magnesium W/ Vitamin D (Calcium 500), 2 TABS PO DAILY Fludrocortisone Acetate (Florinef), 0.1 MG PO DAILY Insulin Aspart (Novolog Flexpen), 5 UNITS SQ w/breakfast & lunch Insulin Aspart (Novolog Flexpen), 7 UNITS SQ with supper Insulin Detemir (Levemir Flextouch), 9 UNITS SQ QAM Insulin Detemir (Levemir Flextouch), 8 UNITS SQ. QPM Lisinopril (Zestril), 2.5 MG PO QAM Metoprolol Succ (Toprol Xl) (Toprol-Xl), 50 MG PO QAM Prednisone (Prednisone), 5 MG PO QAM Probiotic Product (Probiotic), 1 CAP PO QAM Tacrolimus (Prograf), 3 CAP PO QAM Tacrolimus (Prograf), 2 CAP PO QPM Tamsulosin HCl (Tamsulosin HCl), 1 CAP PO QPM Ursodiol (Ursodiol), 300 MG PO BID Venlafaxine Hcl (Venlafaxine Extended Rel), 37.5 MG PO QAM Scheduled PRN Meclizine HCl (Meclizine HCl), 1-2 TAB PO every 6-8 hrs PRN for VERTIGO Allergies Coded Allergies: Aspirin (Verified Allergy, Unknown, high doses contrindicated d/t hx liver transplant, 10/03/17) Ibuprofen (Verified Adverse Reaction, Unknown, not to take due to transplant, 10/03/17) Physical Exam Vital Signs Date Time Temp Pulse Resp B/P (MAP) Pulse Ox O2 Delivery O2 Flow Rate FiO2 10/03/17 02:00 109 18 148/83 95 Room Air 10/03/17 00:44 37.8 114 18 154/94 94 Room Air 10/02/17 23:56 116 10/02/17 22:55 36.9 123 18 163/91 96 Room Air Physical Exam General: Non-ill appearing, nontoxic older male in no acute distress without any complaints. HEENT: Normal cephalic atraumatic. Pupils are equal round and reactive to light. Extraocular movements are intact. Oropharynx is pink with moist mucous membranes. No swelling of the mouth lips or tongue. Neck: Supple with a midline trachea. No meningeal signs or stiffness, no JVD or bruits. No Stridor. Chest: Clear to auscultation bilaterally. No wheezes or rhonchi. No increased work of breathing. Heart: regular rate and rhythm. Abdomen: Well healing incisions. Small central scab area that when removed had small bleeding. There is a small amount of subcutaneous fat visualized. No pus or redness. Soft nontender, nondistended without rebound guarding or rigidity. Extremities: No cyanosis clubbing or edema. No calf tenderness or assymetry Spine/Back. Non tender to palpation. No CVA tenderness Skin: Good turgor without rashes. Neurologic exam: Cranial nerves two through 12 are intact. Motor and sensation are intact and symmetrical throughout. Medical Decision & Procedures ER Provider Diagnostic Interpretation: X-ray results as stated below per interpretation by me: CHEST X-RAY: No acute infiltrate. No pneumothorax. Laboratory Results 10/02/17 23:40 Red Blood Count 4.20, Mean Corpuscular Volume 89.0, Mean Corpuscular Hemoglobin 30.7, Mean Corpuscular Hemoglobin Concent 34.5, Mean Platelet Volume 9.5, Neutrophils (%) (Auto) 61.6, Lymphocytes (%) (Auto) 21.7, Monocytes (%) (Auto) 8.5, Eosinophils (%) (Auto) 7.2, Basophils (%) (Auto) 0.4, Neutrophils # (Auto) 3.19, Lymphocytes # (Auto) 1.12, Monocytes # (Auto) 0.44, Eosinophils # (Auto) 0.37, Basophils # (Auto) 0.02 10/02/17 23:40 Test 10/02/17 23:40 10/02/17 23:47 10/02/17 23:50 White Blood Count 5.17 K/uL (4.8-10.8) Red Blood Count 4.20 M/uL (4.7-6.1) Hemoglobin 12.9 g/dL (14.0-18.0) Hematocrit 37.4 % (42-52) Mean Corpuscular Volume 89.0 fL (80-100) Mean Corpuscular Hemoglobin 30.7 pg (25-34) Mean Corpuscular Hemoglobin Concent 34.5 g/dl (32-36) Platelet Count 112 K/uL (130-400) Mean Platelet Volume 9.5 fL (7.4-10.4) Neutrophils (%) (Auto) 61.6 % Lymphocytes (%) (Auto) 21.7 % Monocytes (%) (Auto) 8.5 % Eosinophils (%) (Auto) 7.2 % Basophils (%) (Auto) 0.4 % Neutrophils # (Auto) 3.19 K/uL (1.4-6.5) Lymphocytes # (Auto) 1.12 K/uL (1.2-3.4) Monocytes # (Auto) 0.44 K/uL (0.11-0.59) Eosinophils # (Auto) 0.37 K/uL (0-0.5) Basophils # (Auto) 0.02 K/uL (0-0.2) RDW Standard Deviation 44.5 fL (36.4-46.3) RDW Coefficient of Variation 13.6 % (11.5-14.5) Immature Granulocyte % (Auto) 0.6 % Immature Granulocyte # (Auto) 0.03 K/uL (0.00-0.02) Anion Gap 8.0 mmol/L (3-11) Est Creatinine Clear Calc Drug Dose 36.6 ml/min Estimated GFR () 41.2 Estimated GFR (Non- 35.5 BUN/Creatinine Ratio 18.3 (10-20) Calcium Level 8.0 mg/dl (8.5-10.1) Total Bilirubin 0.4 mg/dl (0.2-1) Direct Bilirubin 0.1 mg/dl (0-0.2) Aspartate Amino Transf (AST/SGOT) 19 U/L (15-37) Alanine Aminotransferase (ALT/SGPT) 29 U/L (12-78) Alkaline Phosphatase 126 U/L (45-117) Total Protein 7.3 gm/dl (6.4-8.2) Albumin 3.1 gm/dl (3.4-5.0) Lipase 90 U/L (73-393) Beta-Hydroxybutyric Acid 0.91 mg/dL (0.2-2.81) Lyme Disease IgG Antibody NEG (NEG) Lyme Disease IgM Antibody NEG (NEG) Bedside Troponin I < 0.030 ng/ml (0-0.045) Urine Color YELLOW Urine Appearance CLEAR (CLEAR) Urine pH 6.0 (4.5-7.5) Urine Specific [place] 1.017 (1.000-1.030) Urine Protein 2+ (NEG) Urine Glucose (UA) 2+ (NEG) Urine Ketones NEG (NEG) Urine Occult Blood TRACE (NEG) Urine Nitrite NEG (NEG) Urine Bilirubin NEG (NEG) Urine Urobilinogen NEG (NEG) Urine Leukocyte Esterase NEG (NEG) Urine WBC (Auto) 1-5 /hpf (0-5) Urine RBC (Auto) 0-4 /hpf (0-4) Urine Hyaline Casts (Auto) 0 /lpf (0-5) Urine Epithelial Cells (Auto) 5-10 /lpf (0-5) Urine Bacteria (Auto) NEG (NEG) Bedside Lactic Acid Venous 1.30 mmol/L (0.90-1.70) Influenza Type A Antigen Neg for Influ A (NEG) Influenza Type B Antigen Neg for Influ B (NEG) Laboratory studies as stated above per my review. Medications Administered Medications (Trade) Dose Ordered Sig/Michael Route Start Time Stop Time Status Last Admin Dose Admin Sodium Chloride 250 ml @ 999 mls/hr Q16M STAT IV 10/03/17 01:54 10/03/17 02:09 10/03/17 01:56 999 MLS/HR Sodium Chloride 1,000 ml @ 100 mls/hr Q10H STAT IV 10/03/17 01:54 10/03/17 11:53 10/03/17 01:56 100 MLS/HR ECG Indication: tachycardia Rate (beats per minute): 120 Rhythm: sinus tachycardia Findings: no acute ischemic change, no ectopy Comparison ECG Date: 03/11/17 Change: no significant change ED Course 2306: Past medical records reviewed. The patient was evaluated in room A09B, and a complete history and physical examination were performed. 0103: I discussed the patients case with Dr. Wild, [facility] Hospitalist. They are going to give me the transplant team. 0136: I discussed the patients case with Dr. Pan, [facility] Transplant Surgery. He recommends we observe the patient and the patient does not need to go to [place]. He would recommend holding antibiotics. 0150: I discussed the patient's case with Dr. Carey, [facility] Hospitalist. He understands the patient's condition and agrees to accept the patient. The patient will be further evaluated. 0154: Ordered Sodium Chloride 1000 ml @ 100 mls/hr IV, Sodium Chloride 250 ml @ 999 mls/hr IV. Medical Decision Differentials include, but are not limited to; sepsis, infection, complication related to liver transplant, abdominal infection. This patient comes in as described above. He is asymptomatic at present. He's been having fevers for the last week at night only. He says he feels good besides this and has no other focus of infection with the exception of there is a small lesion on his abdomen. He is on Keflex for this. There is a small scab and when I did remove the scab, there is no purulence drainage and no redness. There's no tenderness or fluctuance. He said he had a infection related to stitch at one point many years ago. He has nothing to suggest meningitis or sepsis. He has no headache or neck pain or stiffness. He's had no respiratory symptoms. He's had no rash or bug bites. No flulike illness. Given his history of liver transplant and extensive workups been done. He did see his regular doctor the other day he tells me the transplant team does not know that he's been having fevers however. He does not have an elevation of white count or lactic acid. His kidney functions are mildly elevated compared to baseline with a creatinine 1.8 user runs about 1.5. There may be prerenal component he was hydrated with a 250 mL normal saline bolus at 100 mL an hour of IV normal saline. His liver functions are normal. He has nothing to suggest acute cardiac disease. He has nothing to suggest liver failure. Lyme titer influenza were negative. I did talk to the transplant doctor front end java developer at [facility] where the patient is followed and he recommended that we observe the patient in the hospital here overnight and does not feel the patient needs to be transferred to the transplant center now. I have consulted the hospitalist to see the patient in the ER. Medication Reconcilliation Current Medication List: was personally reviewed by me Blood Pressure Screening Patient's blood pressure: Elevated blood pressure Blood pressure disposition: Elevated BP felt to be situational Consults Time Called: 102 Consulting Physician: Dr. Wild, [facility] Hospitalist Returned Call: 102 I discussed the patients case with Dr. Wild, [facility] Hospitalist. They are going to give me the transplant team. Additional Consults: Time Called: 013 Consulted Physician: Dr. Pan, [facility] Transplant Surgery Returned Call: 0136 Additional Comments: I discussed the patients case with Dr. Pan, [facility] Transplant Surgery. He recommends we observe the patient and the patient does not need to go to [place]. He would recommend holding antibiotics. Time Called: 0150 Consulted Physician: Dr. Carey, [facility] Hospitalist Returned Call: 0150 Additional Comments: I discussed the patient's case with Dr. Carey, [facility] Hospitalist. He understands the patient's condition and agrees to accept the patient. The patient will be further evaluated. Impression Primary Impression: Febrile illness Additional Impressions: Renal insufficiency Liver transplanted Scribe Attestation The scribe's documentation has been prepared under my direction and personally reviewed by me in its entirety. I confirm that the note above accurately reflects all work, treatment, procedures, and medical decision making performed by me. Departure Information Dispostion Being Evaluated By Hospitalist Referrals Cesilia Wormkan M.D. (PCP) Patient Instructions My [facility] Problem Qualifiers
[2017-10-02 23:55] LABS: BASO % 0.4 %; BASO ABS # 0.02 K/uL (0-0.2); COMPLETE YES; EOS % 7.2 %; HEMATOCRIT 37.4 % (42-52); IG% 0.6 %; LYMPH % 21.7 %; LYMPH ABS # 1.12 K/uL (1.2-3.4); MEAN CORPUSCULAR HEMOGLOBIN 30.7 pg (25-34); MEAN CORPUSCULAR HGB CONC 34.5 g/dl (32-36); MEAN PLATELET VOLUME 9.5 fL (7.4-10.4); MONO % 8.5 %; NEUT % 61.6 %; PLATELET COUNT 112 K/uL (130-400); WHITE BLOOD COUNT 5.17 K/uL (4.8-10.8)
[2017-10-03 00:02] LABS: URINE APPEARANCE CLEAR (CLEAR); URINE BILIRUBIN NEG (NEG); URINE COLOR YELLOW; URINE NITRITE NEG (NEG); URINE SPECIFIC GRAVITY 1.017 (1.000-1.030); UROBILINOGEN NEG (NEG)
[2017-10-03 00:03] LABS: MANUAL MICROSCOPIC REQUIRED? NO; REVIEW REQ? NO
[2017-10-03 00:24] LABS: BUN/CREATININE RATIO 18.3 (10-20); CREATININE 1.8 mg/dl (0.60-1.40); POTASSIUM 4.3 mmol/L (3.5-5.1)
[2017-10-03 00:34] LABS: BETA-HYDROXYBUTYRATE 0.91 mg/dL (0.2-2.81)
[2017-10-03] MEDS ORDERED: URSO300C8 PO (00:46)
[2017-10-03 00:47] LABS: LYME DISEASE AB IGM NEG (NEG)
[2017-10-03 00:48] LABS: LYME DISEASE AB IGG NEG (NEG)
[2017-10-03] MEDS ORDERED: TACR1CAP PO ×2 (00:48)
[2017-10-03] MEDS ORDERED: ASPI-435 PO (00:48)
[2017-10-03] MEDS ORDERED: FLUD0.1T10 PO (00:49)
[2017-10-03] MEDS ORDERED: CALC-5 PO (00:52)
[2017-10-03] MEDS ORDERED: LVMIPEN SQ. (00:53)
[2017-10-03] MEDS ORDERED: INSU3INJ3 SQ (00:53)
[2017-10-03] MEDS ORDERED: NVLGI/PEN SQ (00:56)
[2017-10-03] MEDS ORDERED: NVLGIPEN SQ (00:56)
[2017-10-03] MEDS ORDERED: SODIUM CHLORIDE 0.9% 1000ML 1,000 ML IV STA (01:54)
[2017-10-03] MEDS ORDERED: SODIUM CHLORIDE 0.9% 1000ML 250 ML IV STA (01:54)
[2017-10-03] MEDS ORDERED: CEFEPIME IV 1,000 MG in DEXTROSE 5% 100ML 100 ML IV SCH (02:45)
[2017-10-03] MEDS ORDERED: ACETAMINOPHEN 325 MG TAB PO PRN (02:45)
[2017-10-03] MEDS ORDERED: MECLIZINE HCL 12.5 MG TAB PO PRN (02:45)
[2017-10-03] MEDS ORDERED: GLUCAGON FOR INJ 1 MG VIAL SQ PRN (03:00)
[2017-10-03] MEDS ORDERED: DEXTROSE 50% 50 ML SYR IV PRN (03:00)
[2017-10-03] MEDS ORDERED: GLUCOSE 10 TABS/TUBE PO PRN (03:00)
[2017-10-03] MEDS ORDERED: GLUCOSE 40% GEL 15 GM TUBE PO PRN (03:00)
--- NOTE | 2017-10-03 03:25 | History and Physical ---
History & Physical Date & Time of Service: Oct 03, 2017 at 03:01 Chief Complaint: FEVER Primary Care Physician: Cesilia Workman M.D. 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 The pt had some inflammation and erythema surrounding a small ulcerated area on his mid abdomen. He states that the area occasionally becomes irritated due to a residual subcutaneous stitch dating back to his liver transplant. He denies any additional focal signs such as SOB/cough, diarrhea or dysuria. The inflammation surrounding the ulcer appeared to have resolved prior to the onset of his fever. A fever of 37.8 was confirmed on arrival to the ER. Initial labs are notable for NAM and normal liver function. Past Medical/Surgical History Medical Problems: (1) Benign hypertension Status: Chronic (2) Diabetes mellitus Status: Chronic (3) Diverticulitis Status: Chronic (4) Transplantation of liver Status: Chronic Family History Diabetes mellitus FH: heart disease Hypertension Social History Smoking Status: Former Smoker Drug Use: none Marital Status: Housing status: lives with family Occupational Status: retired Immunizations History of Influenza Vaccine: N/A Influenza Vaccine Date: Sep 01, 2012 History of Tetanus Vaccine?: Yes Tetanus Immunization Date: March 16, 2007 History of Pneumococcal: Yes Pneumococcal Date: Apr 14, 1994 History of Hepatitis B Vaccine: No Multi-Drug Resistant Organisms History of MDRO: No Allergies Coded Allergies: Aspirin (Verified Allergy, Unknown, high doses contrindicated d/t hx liver transplant, 10/03/17) Ibuprofen (Verified Adverse Reaction, Unknown, not to take due to transplant, 10/03/17) Home Medications Scheduled Aspirin (Aspirin 81), 81 MG PO DAILY Calcitriol (Calcitriol), 1 CAP PO 3XWK Calcium-Magnesium W/ Vitamin D (Calcium 500), 2 TABS PO DAILY Fludrocortisone Acetate (Florinef), 0.1 MG PO DAILY Insulin Aspart (Novolog Flexpen), 5 UNITS SQ w/breakfast & lunch Insulin Aspart (Novolog Flexpen), 7 UNITS SQ with supper Insulin Detemir (Levemir Flextouch), 9 UNITS SQ QAM Insulin Detemir (Levemir Flextouch), 8 UNITS SQ. QPM Lisinopril (Zestril), 2.5 MG PO QAM Metoprolol Succ (Toprol Xl) (Toprol-Xl), 50 MG PO QAM Prednisone (Prednisone), 5 MG PO QAM Probiotic Product (Probiotic), 1 CAP PO QAM Tacrolimus (Prograf), 3 CAP PO QAM Tacrolimus (Prograf), 2 CAP PO QPM Tamsulosin HCl (Tamsulosin HCl), 1 CAP PO QPM Ursodiol (Ursodiol), 300 MG PO BID Venlafaxine Hcl (Venlafaxine Extended Rel), 37.5 MG PO QAM Scheduled PRN Meclizine HCl (Meclizine HCl), 1-2 TAB PO every 6-8 hrs PRN for VERTIGO Review of Systems Constitutional: + fever, + sweats, No chills Eyes: No worsening of vision ENT: + problem reported (Chronically hard of hearing), No hearing loss, No unusual epistaxis, No nasal symptoms Respiratory: No cough, No sputum, No wheezing Cardiovascular: No chest pain, No orthopnea, No PND Abdomen: + problem reported (There was some inflammation of the abdominal wall surrounding an ulcerated area reported - has largely resolved), No pain, No nausea, No vomiting, No diarrhea Genitourinary - Male: No hematuria, No dysuria Neurologic: No memory loss, No paralysis, No weakness Psychiatric: No depression symptoms Endocrine: No fatigue Hematologic / Lymphatic: No abnormal bleeding/bruising Integumentary: + problem reported (Small, shallow, ulcerated area over mid abdomen) Allergic / Immunologic: No environmental allergies Physical Exam Vital Signs Date Time Temp Pulse Resp B/P (MAP) Pulse Ox O2 Delivery O2 Flow Rate FiO2 10/03/17 02:00 109 18 148/83 95 Room Air 10/03/17 00:44 37.8 114 18 154/94 94 Room Air 10/02/17 23:56 116 10/02/17 22:55 36.9 123 18 163/91 96 Room Air General Appearance: WD/WN, no apparent distress Head: normocephalic Eyes: normal inspection, PERRL, EOMI ENT: + pertinent finding (hard of hearing) Neck: supple, no adenopathy, no JVD Respiratory/Chest: chest non-tender, lungs clear, normal breath sounds Cardiovascular: regular rate, rhythm, no edema, no gallop Abdomen/GI: normal bowel sounds, non tender, soft Back: normal inspection, no CVA tenderness Extremities/Musculoskelatal: normal inspection Neurologic/Psych: family physician II-XII nml as tested, no motor/sensory deficits, alert Skin: normal color, warm/dry, + pertinent finding (Small ulcerated area over mid abdomen - no exudate or tenderness noted - shallow in appearance) Diagnostics Laboratory Results Results Past 24 Hours Test 10/02/17 23:40 10/02/17 23:47 10/02/17 23:50 Range/Units White Blood Count 5.17 4.8-10.8 K/uL Red Blood Count 4.20 4.7-6.1 M/uL Hemoglobin 12.9 14.0-18.0 g/dL Hematocrit 37.4 42-52 % Mean Corpuscular Volume 89.0 80-100 fL Mean Corpuscular Hemoglobin 30.7 25-34 pg Mean Corpuscular Hemoglobin Concent 34.5 32-36 g/dl Platelet Count 112 130-400 K/uL Mean Platelet Volume 9.5 7.4-10.4 fL Neutrophils (%) (Auto) 61.6 % Lymphocytes (%) (Auto) 21.7 % Monocytes (%) (Auto) 8.5 % Eosinophils (%) (Auto) 7.2 % Basophils (%) (Auto) 0.4 % Neutrophils # (Auto) 3.19 1.4-6.5 K/uL Lymphocytes # (Auto) 1.12 1.2-3.4 K/uL Monocytes # (Auto) 0.44 0.11-0.59 K/uL Eosinophils # (Auto) 0.37 0-0.5 K/uL Basophils # (Auto) 0.02 0-0.2 K/uL RDW Standard Deviation 44.5 36.4-46.3 fL RDW Coefficient of Variation 13.6 11.5-14.5 % Immature Granulocyte % (Auto) 0.6 % Immature Granulocyte # (Auto) 0.03 0.00-0.02 K/uL Sodium Level 136 136-145 mmol/L Potassium Level 4.3 3.5-5.1 mmol/L Chloride Level 102 98-107 mmol/L Carbon Dioxide Level 26 21-32 mmol/L Anion Gap 8.0 3-11 mmol/L Blood Urea Nitrogen 33 7-18 mg/dl Creatinine 1.80 0.60-1.40 mg/dl Est Creatinine Clear Calc Drug Dose 36.6 ml/min Estimated GFR () 41.2 Estimated GFR (Non- 35.5 BUN/Creatinine Ratio 18.3 10-20 Random Glucose 334 70-99 mg/dl Calcium Level 8.0 8.5-10.1 mg/dl Total Bilirubin 0.4 0.2-1 mg/dl Direct Bilirubin 0.1 0-0.2 mg/dl Aspartate Amino Transf (AST/SGOT) 19 15-37 U/L Alanine Aminotransferase (ALT/SGPT) 29 12-78 U/L Alkaline Phosphatase 126 45-117 U/L Total Protein 7.3 6.4-8.2 gm/dl Albumin 3.1 3.4-5.0 gm/dl Lipase 90 73-393 U/L Beta-Hydroxybutyric Acid 0.91 0.2-2.81 mg/dL Lyme Disease IgG Antibody NEG NEG Lyme Disease IgM Antibody NEG NEG Bedside Troponin I < 0.030 0-0.045 ng/ml Urine Color YELLOW Urine Appearance CLEAR CLEAR Urine pH 6.0 4.5-7.5 Urine Specific [place] 1.017 1.000-1.030 Urine Protein 2+ NEG Urine Glucose (UA) 2+ NEG Urine Ketones NEG NEG Urine Occult Blood TRACE NEG Urine Nitrite NEG NEG Urine Bilirubin NEG NEG Urine Urobilinogen NEG NEG Urine Leukocyte Esterase NEG NEG Urine WBC (Auto) 1-5 0-5 /hpf Urine RBC (Auto) 0-4 0-4 /hpf Urine Hyaline Casts (Auto) 0 0-5 /lpf Urine Epithelial Cells (Auto) 5-10 0-5 /lpf Urine Bacteria (Auto) NEG NEG Bedside Lactic Acid Venous 1.30 0.90-1.70 mmol/L Influenza Type A Antigen Neg for Influ A NEG Influenza Type B Antigen Neg for Influ B NEG Microbiology Results 10/02/17 Blood Culture, Received Pending 10/02/17 Blood Culture, Received Pending 10/02/17 Urine Culture, Received Pending Impression Assessment and Plan 77 y/o M Hx HTN, DM, adrenal insufficiency, 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 The pt had some inflammation and erythema surrounding a small ulcerated area on his mid abdomen. He states that the area occasionally becomes irritated due to a residual subcutaneous stitch dating back to his liver transplant. He denies any additional focal signs such as SOB/cough, diarrhea or dysuria. The inflammation surrounding the ulcer appeared to have resolved prior to the onset of his fever. A fever of 37.8 was confirmed on arrival to the ER. Initial labs are notable for NAM and normal liver function. 1) Fever - reported abdominal wall inflammation 2 days prior - could not appreciate any on admission although a small shallow ulcer is present - no additional source is identified. Pt placed on Cefepime pending culture results. It may be worth imaging his abdomen if his fever persists and the area should be reexamined for evidence of cellulitis or expansion of the ulcer. 2) NAM - placed on IVF - trend BMP. 3) Adrenal insufficiency - the pt is hypertensive on admission - with persistent fevers or any sign of hypotension, stress dose steroids should be administered. He remains on his scheduled Fludrocortisone and Prednisone. 4) Liver transplant - Cont Tacro and Pred as scheduled. 5) DM - placed on SS - additional Lantus provided on admission due to degree of hyperglycemia. 6) HTN - cont Metoprolol Full code - Heparin prophylaxis Total time for this admit including review of labs, meds, imaging - discussion with pt and ER attending - 38 min Level of Care Med/Surg Resuscitation Status FULL RESUSCITATION VTE Prophylaxis VTE Risk Assessment Done? Y/N: Yes Risk Level: Moderate Given or contraindicated: Unfractionated heparin SQ
[2017-10-03 03:28] VITALS: BP 168/98; PULSE 107; TEMP 36.4; O2SAT 95; BMI 23.7
[2017-10-03] MEDS ORDERED: CEFEPIME IV 2,000 MG in SYRINGE 7.5 ML IV SCH (04:00)
[2017-10-03] MEDS ORDERED: LANTUS PER UNIT CHARGE SQ SCH (04:00)
[2017-10-03] MEDS ORDERED: SODIUM CHLORIDE 0.9% 1000ML 1,000 ML IV SCH (04:00)
[2017-10-03] MEDS ORDERED: CEFEPIME CONSULT ACTIVE PRN ×2 (04:00)
[2017-10-03] MEDS: INSULIN ASPART 100 UNITS/ML 3 ML PEN SC SCH ×4 (06:30→20:38)
--- NOTE | 2017-10-03 06:42 | DIAGNOSTIC IMAGING REPORT ---
CHEST ONE VIEW PORTABLE CLINICAL HISTORY: CHEST PAIN dyspnea COMPARISON STUDY: 03/11/2017 FINDINGS: Mild stable cardiomegaly. Slight prominence pulmonary vasculature. Diaphragms smooth. No focal infiltrates. IMPRESSION: Mild pulmonary vascular congestion. The above report was generated using voice recognition software. It may contain grammatical, syntax or spelling errors. Electronically signed by: Haresh Wallis M.D. 10/03/2017 6:41 AM Dictated Date/Time: 10/03/2017 6:40 AM
[2017-10-03 07:03] LABS: PROTHROMBIN TIME (PATIENT) 10.9 SECONDS (9.0-12.0)
[2017-10-03] MEDS ORDERED: METOPROLOL SUCC 50MG EXT REL TAB PO SCH (08:00)
[2017-10-03 08:09] VITALS: BP 157/84; PULSE 107; TEMP 36.7; O2SAT 94
[2017-10-03] MEDS: HEPARIN SOD 5000 UNIT/0.5 ML CARP SQ SCH ×2 (08:19→20:37)
[2017-10-03] MEDS: ASPIRIN 81 MG ECTAB PO SCH (08:20)
[2017-10-03] MEDS: VENLAFAXINE HCL XR 37.5 MG CAPXR PO SCH (08:20)
[2017-10-03] MEDS: LISINOPRIL 2.5 MG TAB PO SCH (08:20)
[2017-10-03] MEDS: URSODIOL 300 MG CAP PO SCH ×2 (08:20→20:30)
[2017-10-03] MEDS: FLUDROCORTISONE ACETATE 0.1 MG TAB PO SCH (08:21)
[2017-10-03] MEDS: TACROLIMUS 1 MG CAP PO SCH (08:21)
[2017-10-03] MEDS: INSULIN DETEMIR FLEXPEN/FLEX TOUCH 100 UNITS/ML 3ML SQ SCH (08:27)
[2017-10-03] MEDS ORDERED: CALCITRIOL 0.25 MCG CAP PO SCH (09:00)
[2017-10-03 10:36] LABS: BUN/CREATININE RATIO 18.4 (10-20); CREATININE 1.55 mg/dl (0.60-1.40); POTASSIUM 4.1 mmol/L (3.5-5.1)
[2017-10-03 11:04] VITALS: BP 161/94; PULSE 110; TEMP 36.8; O2SAT 92
--- NOTE | 2017-10-03 12:20 | Hospitalist Progress Note ---
Hospitalist Progress Note Date of Service Oct 03, 2017. (Peggy Barragan ., PA-C) Subjective Pt evaluation today including: conversation w/ patient, physical exam, lab review, review of studies, review of inpatient medication list Voiding: no voiding problems Patient lying in bed. Feeling well. Eating and drinking OK. Denies any complaints. Was having fevers overnight prior to admission. Admits to feeling feverish last night. Mild fever document at 37.8 around midnight- no other documented fevers. No cough, cold symptoms, abdominal pain, diarrhea, urinary symptoms. Small chronic abdominal wound w/ scab. States drained pus a few weeks ago but has since resolved. Wound chronically gets a scab, falls off, then cycle repeats. Does not look unusual or changing to patient today. Denies any other wounds/lesions. Patient denies any chills, sweats, lightheadedness, dizziness, vision changes, CP, palpitations, edema, SOB, wheezing, cough, abdominal pain, nausea, vomiting , diarrhea, urinary symptoms, melena, numbness/tingling, weakness, muscle/joint pain, anxiety/depression, active bleeding, or new skin discoloration/changes. (Peggy Barragan ., PA-C) Medications Current Inpatient Medications Medications (Trade) Dose Ordered Sig/Michael Route Start Time Stop Time Status Last Admin Dose Admin Aspirin (Ecotrin Tab) 81 mg DAILY PO 10/03/17 08:00 11/02/17 08:59 10/03/17 08:20 81 MG Calcitriol (Rocaltrol Cap) 0.25 mcg MoWeFr@0900 PO 10/03/17 09:00 11/02/17 08:59 10/03/17 08:21 0.25 MCG Fludrocortisone Acetate (Florinef Tab) 0.1 mg DAILY PO 10/03/17 08:00 11/02/17 08:59 10/03/17 08:21 0.1 MG Insulin Detemir (Levemir Flexpen/ FlexTouch) 8 units QPM SC 10/03/17 21:00 11/02/17 20:59 Insulin Detemir (Levemir Flexpen/ FlexTouch) 9 units QAM SQ 10/03/17 08:00 11/02/17 08:59 10/03/17 08:27 9 UNITS Lisinopril (Zestril Tab) 2.5 mg QAM PO 10/03/17 08:00 11/02/17 08:59 10/03/17 08:20 2.5 MG Metoprolol Succinate (Toprol Xl Tab) 50 mg QAM PO 10/03/17 08:00 11/02/17 08:59 10/03/17 08:20 50 MG Prednisone (PredniSONE TAB) 5 mg QAM PO 10/03/17 08:00 11/02/17 08:59 10/03/17 08:21 5 MG Tacrolimus (Prograf Cap) 2 mg QPM PO 10/03/17 21:00 11/02/17 20:59 Tacrolimus (Prograf Cap) 3 mg QAM PO 10/03/17 08:00 11/02/17 08:59 10/03/17 08:21 3 MG Tamsulosin HCl (Flomax Cap) 0.4 mg QPM PO 10/03/17 21:00 11/02/17 20:59 Ursodiol (Actigall Cap) 300 mg BID PO 10/03/17 08:00 11/02/17 08:59 10/03/17 08:20 300 MG Venlafaxine HCl (effeXOR EXTENDED REL CAP) 37.5 mg QAM PO 10/03/17 08:00 11/02/17 08:59 10/03/17 08:20 37.5 MG Meclizine HCl (Antivert Tab) 12.5 mg Q8H PRN PO 10/03/17 02:45 11/02/17 02:44 Insulin Aspart (novoLOG ASPART) SLIDING SCALE G... ACHS SC 10/03/17 06:30 11/02/17 06:59 Acetaminophen (Tylenol Tab) 650 mg Q4H PRN PO 10/03/17 02:45 11/02/17 02:44 10/03/17 10:13 650 MG Heparin Sodium (Porcine) (Heparin Sq 5000 Unit/0.5ml) 5,000 unit Q12H SQ 10/03/17 09:00 11/02/17 08:59 Glucose (Glucose 40% Gel) 15-30 GRAMS 15 GRAMS... UD PRN PO 10/03/17 03:00 11/02/17 02:59 Glucose (Glucose Chew Tab) 4-8 Tablets 4 Tabl... UD PRN PO 10/03/17 03:00 11/02/17 02:59 Dextrose (Dextrose 50% 50ML Syringe) 25-50ML OF 50% DW IV FOR... UD PRN IV 10/03/17 03:00 11/02/17 02:59 Glucagon (Glucagon Inj) 1 mg UD PRN SQ 10/03/17 03:00 11/02/17 02:59 Sodium Chloride 1,000 ml @ 100 mls/hr Q10H IV 10/03/17 04:00 10/03/17 13:59 10/03/17 03:57 100 MLS/HR Cefepime HCl (Consult) 1 ea UD PRN N/A 10/03/17 04:00 11/02/17 03:59 Cefepime HCl 2000 mg/Syringe 20 ml @ 5 mls/min DAILY@0400 IV 10/04/17 04:00 10/16/17 04:03 (Peggy Barragan, PA-C) Objective Vital Signs Date Time Temp Pulse Resp B/P (MAP) Pulse Ox O2 Delivery O2 Flow Rate FiO2 10/03/17 11:04 36.8 110 17 161/94 (116) 92 10/03/17 08:09 36.7 107 18 157/84 (108) 94 10/03/17 07:15 Room Air 10/03/17 03:28 36.4 107 16 168/98 95 Room Air 10/03/17 03:12 37.0 110 18 153/90 96 10/03/17 02:00 109 18 148/83 95 Room Air 10/03/17 00:44 37.8 114 18 154/94 94 Room Air 10/02/17 23:56 116 10/02/17 22:55 36.9 123 18 163/91 96 Room Air (Peggy Barragan, PA-C) Physical Exam General Appearance: no apparent distress Eyes: normal inspection, PERRL ENT: hearing grossly normal Neck: supple Respiratory/Chest: lungs clear, no respiratory distress, no accessory muscle use Cardiovascular: regular rate, rhythm Abdomen: normal bowel sounds, non tender, soft, + pertinent finding (small scabbed lesion in RUQ- chronic- no obvious erythema, warmth, or drainage) Extremities: no pedal edema, no calf tenderness Neurologic/Psychiatric: alert, normal mood/affect, oriented x 3 Skin: normal color, warm/dry, no rash (Peggy Barragan, KIKE) Laboratory Results Last 24 Hours Test 10/02/17 23:40 10/02/17 23:47 10/02/17 23:50 10/03/17 05:33 White Blood Count 5.17 K/uL Red Blood Count 4.20 M/uL Hemoglobin 12.9 g/dL Hematocrit 37.4 % Mean Corpuscular Volume 89.0 fL Mean Corpuscular Hemoglobin 30.7 pg Mean Corpuscular Hemoglobin Concent 34.5 g/dl Platelet Count 112 K/uL Mean Platelet Volume 9.5 fL Neutrophils (%) (Auto) 61.6 % Lymphocytes (%) (Auto) 21.7 % Monocytes (%) (Auto) 8.5 % Eosinophils (%) (Auto) 7.2 % Basophils (%) (Auto) 0.4 % Neutrophils # (Auto) 3.19 K/uL Lymphocytes # (Auto) 1.12 K/uL Monocytes # (Auto) 0.44 K/uL Eosinophils # (Auto) 0.37 K/uL Basophils # (Auto) 0.02 K/uL RDW Standard Deviation 44.5 fL RDW Coefficient of Variation 13.6 % Immature Granulocyte % (Auto) 0.6 % Immature Granulocyte # (Auto) 0.03 K/uL Sodium Level 136 mmol/L 138 mmol/L Potassium Level 4.3 mmol/L 4.1 mmol/L Chloride Level 102 mmol/L 104 mmol/L Carbon Dioxide Level 26 mmol/L 28 mmol/L Anion Gap 8.0 mmol/L 6.0 mmol/L Blood Urea Nitrogen 33 mg/dl 29 mg/dl Creatinine 1.80 mg/dl 1.55 mg/dl Est Creatinine Clear Calc Drug Dose 36.6 ml/min 42.5 ml/min Estimated GFR () 41.2 49.3 Estimated GFR (Non- 35.5 42.5 BUN/Creatinine Ratio 18.3 18.4 Random Glucose 334 mg/dl 155 mg/dl Calcium Level 8.0 mg/dl 8.0 mg/dl Total Bilirubin 0.4 mg/dl Direct Bilirubin 0.1 mg/dl Aspartate Amino Transf (AST/SGOT) 19 U/L Alanine Aminotransferase (ALT/SGPT) 29 U/L Alkaline Phosphatase 126 U/L Total Protein 7.3 gm/dl Albumin 3.1 gm/dl Lipase 90 U/L Beta-Hydroxybutyric Acid 0.91 mg/dL Lyme Disease IgG Antibody NEG Lyme Disease IgM Antibody NEG Bedside Troponin I < 0.030 ng/ml Urine Color YELLOW Urine Appearance CLEAR Urine pH 6.0 Urine Specific [place] 1.017 Urine Protein 2+ Urine Glucose (UA) 2+ Urine Ketones NEG Urine Occult Blood TRACE Urine Nitrite NEG Urine Bilirubin NEG Urine Urobilinogen NEG Urine Leukocyte Esterase NEG Urine WBC (Auto) 1-5 /hpf Urine RBC (Auto) 0-4 /hpf Urine Hyaline Casts (Auto) 0 /lpf Urine Epithelial Cells (Auto) 5-10 /lpf Urine Bacteria (Auto) NEG Bedside Lactic Acid Venous 1.30 mmol/L Influenza Type A Antigen Neg for Influ A Influenza Type B Antigen Neg for Influ B Prothrombin Time 10.9 SECONDS Prothromb Time International Ratio 1.0 Test 10/03/17 07:47 Bedside Glucose 134 mg/dl (Peggy Barragan, PAAlenaC) Assessment and Plan 77 y/o M Hx HTN, DM, adrenal insufficiency, 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 The pt had some inflammation and erythema surrounding a small ulcerated area on his mid abdomen. He states that the area occasionally becomes irritated due to a residual subcutaneous stitch dating back to his liver transplant. He denies any additional focal signs such as SOB/cough, diarrhea or dysuria. The inflammation surrounding the ulcer appeared to have resolved prior to the onset of his fever. A fever of 37.8 was confirmed on arrival to the ER. Initial labs are notable for NAM and normal liver function. Fever of unknown origin: - Admitted to med/surg - IV Cefepime- started on 10/03 - BCx and UCx pending - Chronic abdominal wound- no s/s of infection at present - CXR w/out acute infectious process NAM on CKD stage III- baseline Cr. 1.4-1.5- RESOLVED: - Treated w/ IVF- will d/c today - Follow PRP Adrenal insufficiency: Continue Fludrocortisone 0.1 mg daily and Prednisone 5 mg daily PSC s/p liver transplant: Continue Tacrolimus 3 mg QAM and 2 mg QPM, Prednisone 5 mg daily, Ursodiol 300 mg BID T2DM: - Continue Levemir 9 u QAM and 8 u QPM - BSG ACHS and ISS Anxiety, depression: Continue Effexor 37.5 mg daily HTN: Lisinopril 2.5 mg daily, Metoprolol 50 mg daily BPH: Continue Flomax 0.4 mg daily DVT prophylaxis: Heparin SQ BID Code Status: LEVEL I, FULL Dispo: Discharge to home once medically stable- likely tomorrow- no discharge needs anticipated (Peggy Barragan, KIKE) Reviewed: Pt Seen/Exam by Me (Nikkie Flores MD) History Physician Glue Jointer Feeder Supervision Note: I interviewed and examined the patient. Discussed with ELY Barragan and agree with findings and plan as documented in the note. Any exceptions or clarifications are listed here: Pt had been having low grade temps at home x 5 days and had some pus draining along with blood from his small abdominal wound. Seen by PCP and placed on keflex 2 days prior to admission. No improvement and actually the fever went higher to 101 which is what prompted pt's to have pt come to the ER last night. No other signs or symptoms of infection upon further questioning at all. Pt feels completely fine now. No fevers so far today but says they usually come at nighttime. No joint pains, no rashes, no sore throat, no cold symptoms, no ear pain, no cough, no CP, no SOB, no abd pain, no N/V/D, no GI bleeding, no urinary sxs. Vitals reviewed-persistently tachycardic (sinus) and hypertensive-review of previous admissions and ER visits show this too NAD, AAOx3, very pleasant Reg rhythm, mild tachycardia, 2/6 RAMÓN at left sternal border Abd +BS, soft, NT ND, large incisional scars bilateral abdomen, right of midline with 0.5 cm scabbed over wound with no surrounding erythema/induration, no drainage, not tender Ext no edema, 2+ DP pulses 77 yo male with a h/o PSC and liver transplant on immunosuppressive drugs, HTN, adrenal insufficiency, DMII, CKD stage III, here with fevers, abdominal wound possibly from underlying rejection of old suture material, and acute renal insufficiency on CKD Stage III -renal function back to baseline -continue broad spectrum abx until BCxs neg x 2 days, then switch back to po keflex he was on at home for abd wound-does not currently appear to be infected but perhaps fevers were from this -if fevers persist despite antibiotics and with no other symptoms, will consult GI here to see if could be related to his h/o liver transplant? -chronic thrombocytopenia related to splenomegaly and likely h/o liver disease -increase Toprol to 75mg daily for persistent sinus tach and HTN Documented By: Nikkie Flores (Nikkie Flores MD)
[2017-10-03 15:45] VITALS: BP 153/90; PULSE 107; TEMP 36.7; O2SAT 94
[2017-10-03 18:27] VITALS: Ht 180.3 cm; Wt 77.2 kg
[2017-10-03 19:39] VITALS: BP 116/80; PULSE 108; TEMP 36.8; O2SAT 98
[2017-10-03] MEDS ORDERED: TACROLIMUS 1 MG CAP PO SCH (21:00)
[2017-10-03] MEDS ORDERED: INSULIN DETEMIR FLEXPEN/FLEX TOUCH 100 UNITS/ML 3ML SC SCH (21:00)
[2017-10-03] MEDS ORDERED: TAMSULOSIN HCL 0.4 MG CAP PO SCH (21:00)
[2017-10-03 23:31] VITALS: BP 170/99; PULSE 110; TEMP 37.2; O2SAT 95
[2017-10-04] MEDS ORDERED: CEFEPIME IV 2,000 MG in SYRINGE 7.5 ML IV SCH (04:00)
[2017-10-04 04:30] VITALS: BP 124/87; PULSE 110; TEMP 36.8; O2SAT 96
[2017-10-04 06:05] LABS: BUN/CREATININE RATIO 19.1 (10-20); CALCIUM 8.4 mg/dl (8.5-10.1); CREATININE 1.49 mg/dl (0.60-1.40); POTASSIUM 3.6 mmol/L (3.5-5.1)
[2017-10-04 07:32] VITALS: BP 155/90; PULSE 110; TEMP 36.8; O2SAT 96
[2017-10-04] MEDS ORDERED: METOPROLOL SUCC 25MG EXT REL TAB PO SCH (08:00)
[2017-10-04] MEDS: VENLAFAXINE HCL XR 37.5 MG CAPXR PO SCH (08:05)
[2017-10-04] MEDS: FLUDROCORTISONE ACETATE 0.1 MG TAB PO SCH (08:05)
[2017-10-04] MEDS: ASPIRIN 81 MG ECTAB PO SCH (08:05)
[2017-10-04] MEDS: LISINOPRIL 2.5 MG TAB PO SCH (08:05)
[2017-10-04] MEDS: URSODIOL 300 MG CAP PO SCH (08:05)
[2017-10-04] MEDS: TACROLIMUS 1 MG CAP PO SCH (08:06)
[2017-10-04] MEDS: INSULIN ASPART 100 UNITS/ML 3 ML PEN SC SCH ×2 (08:07→12:06)
[2017-10-04] MEDS: INSULIN DETEMIR FLEXPEN/FLEX TOUCH 100 UNITS/ML 3ML SQ SCH (08:12)
[2017-10-04] MEDS: HEPARIN SOD 5000 UNIT/0.5 ML CARP SQ SCH (08:12)
[2017-10-04] MEDS ORDERED: DXY100 PO (09:59)
[2017-10-04] MEDS ORDERED: METO25TA3 PO (09:59)
--- NOTE | 2017-10-04 10:02 | Discharge Instructions ---
Discharge Instructions Date of Service Oct 04, 2017. Admission Reason for Admission: Fever, Unknown Origin; Immunocompromised State Discharge Discharge Diagnosis / Problem: Fever of unknown origin, immunocompromised Discharge Goals Goal(s): Decrease discomfort, Learn about illness, Diagnostic testing, Therapeutic intervention, Prevent Disease Progression Activity Recommendations Activity Limitations: resume your previous activity . Instructions / Follow-Up Instructions / Follow-Up Abdominal wound: Continue Keflex prescription until completed Doxycycline 100 mg twice daily until prescription is completed Toprol XL was INCREASED from 50 mg daily to 75 mg daily due to tachycardia ( fast heart rate) and hypertension (high blood pressure). Continue all other regular home medications as prescribed. FOLLOW-UPS: Please follow-up with your PCP within 5-7 days Please keep scheduled follow-up with Dr. Madrigal on Oct.10 Please follow-up/keep all of your subspecialty appointments Current Hospital Diet Patient's current hospital diet: AHA Diet (Heart Healthy), Diabetes Type 2 Diet Discharge Diet Recommended Diet: AHA Diet (Heart Healthy), Diabetes Type 2 Diet Pending Studies Studies pending at discharge: no Medical Emergencies . Who to Call and When: Medical Emergencies: If at any time you feel your situation is an emergency, please call 911 immediately. . Non-Emergent Contact Non-Emergency issues call your: Primary Care Provider Call Non-Emergent contact if: you have a fever, temperature is above 100.5, wound has increased drainage, wound has increased redness, wound has increased pain, you have any medication questions . . "Provider Documentation" section prepared by Peggy Barragan. . VTE Core Measure Inpt VTE Proph given/why not?: Unfractionated heparin SQ
[2017-10-04 11:48] VITALS: BP 150/92; PULSE 106; TEMP 36.8; O2SAT 94
--- NOTE | 2017-10-04 12:14 | Discharge Summary ---
Discharge Summary Date of Service Oct 04, 2017. (Peggy Barragan PA-C) Discharge Summary Admission Date: Oct 03, 2017 at 02:40 Discharge Date: Oct 04, 2017 Discharge Disposition: Home Principal Diagnosis: Fever of unknown origin, immunocompromised Problems/Secondary Diagnoses: NAM on CKD stage III Adrenal insufficiency PSC s/p liver transplant T2DM Anxiety depression HTN BPH Immunizations: Have You Had Influenza Vaccine: N/A Influenza Vaccine Date: Sep 01, 2012 History of Tetanus Vaccine?: Yes Tetanus Immunization Date: March 16, 2007 History of Pneumococcal: Yes Pneumococcal Date: Apr 14, 1994 History of Hepatitis B Vaccine: No Procedures: CHEST ONE VIEW PORTABLE CLINICAL HISTORY: CHEST PAIN dyspnea COMPARISON STUDY: 03/11/2017 FINDINGS: Mild stable cardiomegaly. Slight prominence pulmonary vasculature. Diaphragms smooth. No focal infiltrates. IMPRESSION: Mild pulmonary vascular congestion. The above report was generated using voice recognition software. It may contain grammatical, syntax or spelling errors. Electronically signed by: Haresh Wallis M.D. 10/03/2017 6:41 AM Dictated Date/Time: 10/03/2017 6:40 AM The status of this report is Signed. Draft = Not yet reviewed or approved by Radiologist. Signed = Reviewed and approved by Radiologist. (Peggy Barragan PA-C) Medication Reconciliation New Medications: Doxycycline Hyclate (Doxycycline Hyclate) 100 Mg Cap 100 MG PO BID for 10 Days, #20 CAP Changed Medications: Cephalexin (Keflex) 500 Mg Cap 1 CAP PO TID for 8 Days (Changed from: 10) Patient already has Rx at home Metoprolol Succ (Toprol Xl) (Toprol-Xl) 25 Mg Tabcr 75 MG PO DAILY for 30 Days, #90 TAB (Changed from: Metoprolol Succ (Toprol Xl) ( Toprol-Xl) 50 Mg Tabcr 50 Mg PO QAM) Continued Medications: Aspirin (Aspirin 81) 81 Mg Tab 81 MG PO DAILY Calcitriol (Calcitriol) 0.25 Mcg Cap 1 CAP PO 3XWK mon/wed/fri Calcium-Magnesium W/ Vitamin D (Calcium 500) 1 Tab Tab 2 TABS PO DAILY Fludrocortisone Acetate (Florinef) 0.1 Mg Tab 0.1 MG PO DAILY, TAB Insulin Aspart (Novolog Flexpen) 100 Units/Ml Inj 5 UNITS SQ w/breakfast & lunch plus sliding scale up to 30 units daily Insulin Aspart (Novolog Flexpen) 100 Units/Ml Inj 7 UNITS SQ with supper plus sliding scale up to 30 units daily Insulin Detemir (Levemir Flextouch) 100 Unit/Ml Inj 9 UNITS SQ QAM Insulin Detemir (Levemir Flextouch) 100 Unit/Ml Inj 8 UNITS SQ. QPM Lisinopril (Zestril) 2.5 Mg Tab 2.5 MG PO QAM Meclizine HCl (Meclizine HCl) 12.5 Mg Tab 1-2 TAB PO every 6-8 hrs PRN for VERTIGO Prednisone (Prednisone) 5 Mg Tab 5 MG PO QAM Probiotic Product (Probiotic) 1 Cap Cap 1 CAP PO QAM Tacrolimus (Prograf) 1 Mg Cap 3 CAP PO QAM, 3 Refills Tacrolimus (Prograf) 1 Mg Cap 2 CAP PO QPM, 3 Refills Tamsulosin HCl (Tamsulosin HCl) 0.4 Mg Cap 1 CAP PO QPM take 1/2 hour after supper Ursodiol (Ursodiol) 300 Mg Cap 300 MG PO BID Venlafaxine Hcl (Venlafaxine Extended Rel) 37.5 Mg Cap 37.5 MG PO QAM, CAP Discharge Exam Review of Systems: Constitutional: No fever, No chills, No sweats, No weakness, No fatigue Respiratory: No cough, No shortness of breath, No hemoptysis Cardiovascular: No chest pain, No edema, No palpitations Abdomen: No pain, No nausea, No vomiting, No diarrhea, No constipation Musculoskeletal: No joint pain, No muscle pain, No swelling, No calf pain Genitourinary - Male: No hematuria, No dysuria, No urinary frequency, No urinary urgency, No urinary hesitancy, No urinary retention, No urinary incontinence Neurologic: No weakness, No numbness/tingling Psychiatric: No depression symptoms, No anxiety Endocrine: No fatigue Hematologic / Lymphatic: No abnormal bleeding/bruising Integumentary: No rash, No itch, No new/changing skin lesions Physical Exam: General Appearance: no apparent distress Eyes: normal inspection, PERRL ENT: hearing grossly normal Neck: supple Respiratory/Chest: lungs clear, no respiratory distress, no accessory muscle use Cardiovascular: + tachycardia (rhythm regular ) Abdomen / GI: normal bowel sounds, non tender, soft Extremities: no calf tenderness, no pedal edema Neurologic/Psychiatric: alert, normal mood/affect, oriented x 3 Skin: normal color, warm/dry, no rash (Peggy Barragan, KIKE) Hospital Course Admission H&P: 77 y/o M Hx HTN, DM, adrenal insufficiency, 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 The pt had some inflammation and erythema surrounding a small ulcerated area on his mid abdomen. He states that the area occasionally becomes irritated due to a residual subcutaneous stitch dating back to his liver transplant. He denies any additional focal signs such as SOB/cough, diarrhea or dysuria. The inflammation surrounding the ulcer appeared to have resolved prior to the onset of his fever. A fever of 37.8 was confirmed on arrival to the ER. Initial labs are notable for NAM and normal liver function. Physical Exam Vital Signs Date Time Temp Pulse Resp B/P (MAP) Pulse Ox O2 Delivery O2 Flow Rate FiO2 10/03/17 02:00 109 18 148/83 95 Room Air 10/03/17 00:44 37.8 114 18 154/94 94 Room Air 10/02/17 23:56 116 10/02/17 22:55 36.9 123 18 163/91 96 Room Air General Appearance: WD/WN, no apparent distress Head: normocephalic Eyes: normal inspection, PERRL, EOMI ENT: + pertinent finding (hard of hearing) Neck: supple, no adenopathy, no JVD Respiratory/Chest: chest non-tender, lungs clear, normal breath sounds Cardiovascular: regular rate, rhythm, no edema, no gallop Abdomen/GI: normal bowel sounds, non tender, soft Back: normal inspection, no CVA tenderness Extremities/Musculoskelatal: normal inspection 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, no motor/sensory deficits, alert Skin: normal color, warm/dry, + pertinent finding (Small ulcerated area over mid abdomen - no exudate or tenderness noted - shallow in appearance) Hospital Course: Fever of unknown origin: - Admitted to med/surg - IV Cefepime- started on 10/03 -- At discharge, patient to continue prescription of Keflex (already prescribed by PCP) until completed and Doxycycline 100 mg BID until prescription is completed - BCx- NGTD and UCx- gram negative bacilli, low counts - Chronic abdominal wound- no s/s of infection at present- PO antibiotics as above - CXR w/out acute infectious process NAM on CKD stage III- baseline Cr. 1.4-1.5- RESOLVED: - Treated w/ IVF - Follow PRP Adrenal insufficiency: Continue Fludrocortisone 0.1 mg daily and Prednisone 5 mg daily PSC s/p liver transplant: Continue Tacrolimus 3 mg QAM and 2 mg QPM, Prednisone 5 mg daily, Ursodiol 300 mg BID T2DM: - Continue Levemir 9 u QAM and 8 u QPM - BSG ACHS and ISS - Resume home regimen at discharge Anxiety, depression: Continue Effexor 37.5 mg daily HTN: Lisinopril 2.5 mg daily, Metoprolol 50 mg daily BPH: Continue Flomax 0.4 mg daily DVT prophylaxis: Heparin SQ BID Code Status: LEVEL I, FULL Dispo: Discharge to home Total Time Spent: Greater than 30 minutes This includes examination of the patient, discharge planning, medication reconciliation, and communication with other providers. (Peggy Barragan PA-C) Discharge Instructions Please refer to the electronic Patient Visit Report (Discharge Instructions) for additional information. (Peggy Barragan PA-C) Follow-Up Please follow-up with your PCP within 5-7 days Please keep scheduled follow-up with Dr. Madrigal on Oct 10 Please follow-up/keep all of your subspecialty appointments (Peggy Barragan PA-C) Additional Copies To Cesilia Workman M.D. Reviewed: Pt Seen/Exam by Me (Nikkie Flores MD) History Physician Wall Attendant Supervision Note: I interviewed and examined the patient. Discussed with ELY Barragan and agree with findings and plan as documented in the note. Any exceptions or clarifications are listed here: Pt had been having low grade temps at home x 5 days and had some pus draining along with blood from his small abdominal wound. Seen by PCP and placed on keflex 2 days prior to admission. No improvement and actually the fever went higher to 101 which is what prompted pt's to have pt come to the ER. No other signs or symptoms of infection upon further questioning at all. Pt feels completely fine now. No fevers throughout his 2 day hospital stay. No joint pains, no rashes, no sore throat, no cold symptoms, no ear pain, no cough, no CP , no SOB, no abd pain, no N/V/D, no GI bleeding, no urinary sxs. Vitals reviewed-persistently tachycardic (sinus) and hypertensive-review of previous admissions and ER visits show this too NAD, AAOx3, very pleasant Reg rhythm, mild tachycardia, 2/6 RAMÓN at left sternal border Abd +BS, soft, NT ND, large incisional scars bilateral abdomen, right of midline with 0.5 cm scabbed over wound with no surrounding erythema/induration, no drainage, not tender Ext no edema, 2+ DP pulses 77 yo male with a h/o PSC and liver transplant on immunosuppressive drugs, HTN, adrenal insufficiency, DMII, CKD stage III, here with fevers, abdominal wound possibly from underlying rejection of old suture material, and acute renal insufficiency on CKD Stage III -renal function back to baseline -dc on po keflex he was on at home for abd wound-does not currently appear to be infected but perhaps fevers were from this? Added on po doxy for dc to cover for MRSA and/or Lyme disease for 10 days -if fevers recur at home, advised to call his MD -chronic thrombocytopenia related to splenomegaly and likely h/o liver disease -increased Toprol to 75mg daily for persistent sinus tach and HTN-he has f/u with Cardio this Tuesday Documented By: Nikkie Flores (Nikkie Flores MD)
[2017-10-04 12:22] VITALS: BP 150/92; PULSE 106; TEMP 36.8; O2SAT 94
[2017-10-04] MEDS ORDERED: CEPH-571 PO ×2 (12:24→12:25)
== END 2017-10-04 13:00 | disposition home or self-care (01) | DRG 605 ==
LOC: C.EDB 22:51 → C.4E 10-03 02:40 → ENRESERV 10-03 02:52
PROVIDERS: ADMIT Internal Medicine; ATTEND Family Medicine
DX: S31.109A Unspecified open wound of abdominal wall, unspecified quadrant without penetration into peritoneal cavity, initial encounter (principal); E27.40 Unspecified adrenocortical insufficiency; Z94.4 Liver transplant status; N17.9 Acute kidney failure, unspecified; I10 Essential (primary) hypertension; N18.3 Chronic kidney disease, stage 3 (moderate); X58.XXXA Exposure to other specified factors, initial encounter; E11.22 Type 2 diabetes mellitus with diabetic chronic kidney disease; Z83.3 Family history of diabetes mellitus; Z82.49 Family history of ischemic heart disease and other diseases of the circulatory system; Z79.4 Long term (current) use of insulin; Z79.82 Long term (current) use of aspirin; Z87.891 Personal history of nicotine dependence; F41.9 Anxiety disorder, unspecified; E11.9 Type 2 diabetes mellitus without complications

== ENCOUNTER → 2017-11-08 | Outpatient (CLI) | payer OTHER ==
[~2017-11-08] MED LIST changes: -ASPEC81 PO; +ASPI-435 PO; -CALC-354 PO; +CALC-5 PO; +CEPH-571 PO; +DXY100 PO; -FLR1 PO; +FLUD0.1T10 PO; -INSU1INJ15 SQ; +INSU3INJ3 SQ; -INSUINJ12 SC; +LVMIPEN SQ.; -METO50TA7 PO; -MYCO360T PO; -NVLGI/PEN SC; +NVLGI/PEN SQ; +NVLGIPEN SQ; +OXYC-57 PO; +RANI150T2 PO; +TPRSR/100 PO; +URSO300C8 PO
[2017-11-08 13:15] LABS: HEMOGLOBIN A1C 5.5 % (4.5-5.6)
[2017-11-08 13:52] LABS: ALBUMIN 3.3 gm/dl (3.4-5.0); ALT/SGPT 25 U/L (12-78); AST/SGOT 17 U/L (15-37); BLOOD UREA NITROGEN 33 mg/dl (7-18); CALCIUM 8.5 mg/dl (8.5-10.1); CARBON DIOXIDE 30 mmol/L (21-32); CREATININE 1.82 mg/dl (0.60-1.40); GLUCOSE 137 mg/dl (70-99); POTASSIUM 4.2 mmol/L (3.5-5.1); SODIUM 137 mmol/L (136-145)
[2017-11-08 13:55] LABS: ALKALINE PHOSPHATASE 109 U/L (45-117); TOTAL PROTEIN 7.3 gm/dl (6.4-8.2)
== END | disposition home or self-care (01) ==
LOC: C.LABPVFM 10:30
PROVIDERS: ATTEND Family Medicine
DX: I35.1 Nonrheumatic aortic (valve) insufficiency (principal); E11.29 Type 2 diabetes mellitus with other diabetic kidney complication; E11.9 Type 2 diabetes mellitus without complications

== ENCOUNTER → 2017-12-09 | Outpatient (CLI) | payer OTHER ==
[~2017-12-09] MED LIST changes: -OXYC-57 PO; -RANI150T2 PO; -TPRSR/100 PO
--- NOTE | 2017-12-09 14:46 | DIAGNOSTIC IMAGING REPORT ---
L-SPINE MIN 4 VIEWS ROUTINE CLINICAL HISTORY: Back pain of lumbar region with sciatica COMPARISON STUDY: 06/02/2010 FINDINGS: There are postsurgical changes of an L3-4 discectomy and interbody fusion. There is posterior pedicle screw fixation. There is a persistent grade 1 spondylolisthesis of L5 on S1. There is moderate disc space narrowing at the L5-S1 level. There is an enlarging sclerotic lesion within the L2 vertebra currently measuring 14 mm in diameter. There are vascular calcifications present. No acute fractures are evident. IMPRESSION: 1. Postsurgical changes the L3-4 level 2. Degenerative changes. Grade 1 spondylolisthesis of L5 and S1 3. Enlarging 14 mm sclerotic lesion within the L2 vertebra. As this lesion was first visualized on a 2008 CT scan, the slow growth rate favors a growing bone island over an osteoblastic metastasis. Electronically signed by: Stewart Enciso M.D. 12/09/2017 2:44 PM Dictated Date/Time: 12/09/2017 2:35 PM
== END | disposition home or self-care (01) ==
LOC: C.RADPV 14:16
PROVIDERS: ATTEND Family Medicine
DX: M54.40 Lumbago with sciatica, unspecified side (principal)

== ENCOUNTER 2018-02-04 14:04 | Emergency (ER) | payer OTHER ==
[~2018-02-04] VITALS: Ht 180.3 cm; Wt 75.7 kg
[2018-02-04 14:07] VITALS: TEMP 36.4; Ht 180.3 cm; Wt 75.7 kg
--- NOTE | 2018-02-04 14:26 | EMERGENCY ROOM VISIT NOTE ---
History Report prepared by [place]: Ted Shelton Under the Supervision of: Dr. Dario Durham M.D. First contact with patient: 14:12 Chief Complaint: FALL Stated Complaint: BACK HURTS-FROM FALL OFF LADDER History of Present Illness The patient is a 77 year old male who presents to the Emergency Room with complaints of constant sharp lower back pain following a fall occurring at 1230 today. The patient states that he was on a ladder about 5 rungs up today when he fell backwards on his buttocks. He notes that he did not hit his head when he fell off the latter. He reports that his pain worsens when he breaths. He denies any headache and LOC. He notes that his last tetanus shot was two years ago. No numbness, hematuria, urinary incontinence. Source of History: patient Onset: 1230 today Position: back (lower) Quality: sharp Timing: constant Modifying Factors (Worsening): breathing Associated Symptoms: No LOC, No headache Review of Systems See HPI for pertinent positives and negatives. A total of ten systems were reviewed and were otherwise negative. Past Medical & Surgical Medical Problems: (1) Benign hypertension (2) Diabetes mellitus (3) Diverticulitis (4) FUO (fever of unknown origin) (5) Hernia (6) Immunocompromised state (7) Transplantation of liver Surgical Problems: (1) History of back surgery Family History Diabetes mellitus FH: heart disease Hypertension Social History Smoking Status: Never Smoker Alcohol Use: none Drug Use: none Marital Status: Housing Status: lives with family Occupation Status: retired Current/Historical Medications Scheduled Aspirin (Aspirin 81), 81 MG PO DAILY Calcitriol (Calcitriol), 1 CAP PO 3XWK Calcium-Magnesium W/ Vitamin D (Calcium 500), 2 TABS PO DAILY Fludrocortisone Acetate (Florinef), 0.1 MG PO DAILY Insulin Aspart (Novolog Flexpen), 5 UNITS SQ w/breakfast & lunch Insulin Aspart (Novolog Flexpen), 7 UNITS SQ with supper Insulin Detemir (Levemir Flextouch), 9 UNITS SQ QAM Insulin Detemir (Levemir Flextouch), 8 UNITS SQ. QPM Lisinopril (Zestril), 2.5 MG PO QAM Metoprolol Succinate (Metoprolol Succinate ER), 1 TAB PO DAILY Prednisone (Prednisone), 5 MG PO QAM Probiotic Product (Probiotic), 1 CAP PO QAM Ranitidine HCl (Ranitidine HCl), 1 TAB PO HS Tacrolimus (Prograf), 3 CAP PO QAM Tacrolimus (Prograf), 2 CAP PO QPM Tamsulosin HCl (Tamsulosin HCl), 1 CAP PO QPM Ursodiol (Ursodiol), 300 MG PO BID Venlafaxine Hcl (Venlafaxine Extended Rel), 37.5 MG PO QAM Scheduled PRN Meclizine HCl (Meclizine HCl), 1-2 TAB PO every 6-8 hrs PRN for VERTIGO Oxycodone/Acetaminophen 5MG/325MG (Percocet 5MG/325MG), 1 TAB PO TID PRN for Pain Allergies Coded Allergies: Aspirin (Verified Allergy, Unknown, high doses contrindicated d/t hx liver transplant, 02/04/18) Ibuprofen (Verified Adverse Reaction, Unknown, not to take due to transplant, 02/04/18) Physical Exam Vital Signs Date Time Temp Pulse Resp B/P (MAP) Pulse Ox O2 Delivery O2 Flow Rate FiO2 02/04/18 15:40 107 22 167/112 97 02/04/18 14:07 36.4 111 18 146/90 97 Room Air Physical Exam Physical Exam GENERAL: He is oriented to person, place, and time. He appears well-developed and well-nourished. He does not appear distressed. HENT: Exam performed. Head: Normocephalic and atraumatic. Right Ear: External ear normal. No mastoid tenderness. Left Ear: External ear normal. No mastoid tenderness. Mouth/Throat: The oropharynx is clear and moist. No trismus in the jaw. No dental abscesses or uvula swelling. No oropharyngeal exudate or tonsillar abscesses. EYES: Conjunctivae and EOM are normal. Pupils are equal, round, and reactive to light. Right eye exhibits no discharge. Left eye exhibits no discharge. No scleral icterus. NECK: Normal range of motion. Neck supple. No JVD present. No spinous process tenderness present. No carotid bruit present. No rigidity. No tracheal deviation and normal range of motion present. No Brudzinski's sign and no Kernig 's sign noted. CV: Normal rate, regular rhythm, normal heart sounds and intact distal pulses. There is no peripheral edema. Palpable radial pulses bue. PULM/CHEST: Effort normal and breath sounds normal. No respiratory distress. No stridor. He has no wheezes. He has no rales. Chest Wall: He exhibits no tenderness. ABD: The abdomen is soft. Bowel sounds are normal. He has no distension. No mass is present. There is no tenderness. There is no rebound, no guarding, no Whelan's sign and no tenderness at McBurney's point. Rovsig negative MUSC/SKEL: Normal range of motion. There is no peripheral edema, tenderness or deformity. Pain to palpation in the T spine of the upper lumbar spine over L1 and L2, no C spine tenderness, pain to palpation of left and right lumbar paraspinous muscles. LYMPH: No cervical adenopathy. NEURO: He is alert and oriented to person, place, and time. He has normal strength. No cranial nerve deficit or sensory deficit. Coordination and gait normal. GCS eye subscore is 4. GCS verbal subscore is 5. GCS motor subscore is 6. Cerebellar tests wnl. SKIN: Skin is warm and dry. He is not diaphoretic. PSYCH: He has a normal mood and affect. His behavior is normal. Judgment and thought content normal. Medical Decision & Procedures ER Provider Diagnostic Interpretation: Radiology results as stated below per my review and radiologist interpretation: THORACIC SPINE 3 VIEWS FINDINGS: AP, lateral, and swimmer's views of the thoracic spine are correlated with lateral chest x-ray dated 02/14/2017. The skeletal structures are osteopenic. There is no radiographic evidence of fracture or malalignment involving the thoracic spine. Anterior osteophytes are seen throughout. The transverse processes and pedicles are grossly intact as seen on the frontal view. Mild multilevel degenerative disc space narrowing is observed. The visualized lung parenchyma appears clear. Cardiomegaly is noted. IMPRESSION: Osteopenia and degenerative change as above. There is no radiographic evidence of fracture or malalignment involving the thoracic spine. Electronically signed by: Geo Ramos M.D. 02/04/2018 3:42 PM SINGLE VIEW PELVIS FINDINGS: 2 AP pelvic radiographs are compared to study dated 05/26/2017. The skeletal structures are osteopenic. No fracture is seen involving the hips or bony pelvis. Mild arthritic change and joint space narrowing is seen in the hips. The sacroiliac joints are normal as imaged. Fusion hardware is partially visualized in the lower lumbar spine. The overlying soft tissues are normal in appearance. Atherosclerotic calcification is seen in the femoral arteries. Phleboliths are noted in the pelvis. No bowel obstruction is identified. IMPRESSION: Osteopenia with no radiographic evidence of fracture involving the hips or bony pelvis. Electronically signed by: Geo Ramos M.D. 02/04/2018 3:27 PM LUMBAR SPINE 5 VIEWS FINDINGS: Five views of the lumbar spine are compared to study dated 12/09/2017. Correlation is made with abdominal CT dated 01/24/2015. The skeletal structures are osteopenic. A minimal superior endplate compression deformity is suggested involving L1. Vertebral body height is otherwise maintained throughout the lumbar spine. Minimal anterolisthesis at L5-S1 is unchanged. Alignment is otherwise preserved. There are postoperative changes from discectomy at L3-L4 with laminectomy and posterior fusion at this level. The orthopedic hardware appears intact. The transverse processes are intact as visualized. There is no evidence of spondylolysis. Anterior and lateral marginal osteophytes are seen throughout. A nonspecific 1.4 cm sclerotic focus is again seen in the body of L2, and is unchanged dating back to at least 2014. Advanced facet arthropathy is seen in the lower lumbar region. There is advanced disc space narrowing at L5-S1. Moderate disc space narrowing is seen at L4-L5. The bony pelvis is intact as visualized. There is a nonobstructed abdominal bowel gas pattern noting moderate colonic fecal retention. Phleboliths are observed in the pelvis. Suture material is noted in the right upper quadrant. Atherosclerotic calcification is noted in the abdominal aorta. IMPRESSION: 1. Question minimal superior endplate compression deformity of L1. Correlate for point tenderness at this level. 2. No additional findings are concerning for fracture. 3. Osteopenia with postoperative and spondylotic change, as above. Dictated: 02/04/2018 3:31 PM Transcribed: 02/04/2018 3:59 PM [email or web address] Electronically signed by: Geo Ramos M.D. 02/04/2018 4:00 PM TWO VIEW CHEST FINDINGS: PA and lateral chest radiographs are compared to study dated 10/02/2017. The heart is enlarged and there is atherosclerotic calcification of the thoracic aorta. The pulmonary vasculature is noncongested. Chronic interstitial thickening is similar to previous. No airspace consolidation or pleural effusion is identified. There is no pneumothorax. The skeletal structures are osteopenic. The bony thorax appears intact. IMPRESSION: Cardiomegaly with no active disease in the chest. Electronically signed by: Geo Ramos M.D. 02/04/2018 3:26 PM Medications Administered Medications (Trade) Dose Ordered Sig/Michael Route Start Time Stop Time Status Last Admin Dose Admin Oxycodone/ Acetaminophen (Percocet 5-325mg Tab) 1 tab NOW ONCE PO 02/04/18 17:00 02/04/18 17:01 DC 02/04/18 17:25 1 TAB Procedure Bedside FAST exam performed with ultrasound. Views were obtained in the hepatorenal subxyphoid splenorenal and suprapubic windows. No free fluid in the abdomen. Trace pericardial effusion. No pericardial tamponade. ED Course 1422: The patient was evaluated in room C12. A complete history and physical exam was performed. 1646: X-rays negative with the exception of L1 compression fracture. Patient again not reporting any headache or head of the head. He reports no difficulties urinating, no incontinence. No hematuria. I performed a beside FAST exam with ultrasound on the patient. I attempted to query PDMP. The website however states that the site is currently unavailable.Oxycodone/ Acetaminophen 1 tab PO. DC with follow-up PCP and orthotic, analgesia prescription given. DISCHARGE - Plan of care discussed with patient and questions answered. The patient was given both verbal and printed discharge instructions. The patient verbalized understanding and ability to comply. The patient is to seek outpatient follow up as noted in the discharge instructions. The patient verbalized understanding and ability to comply. The patient is discharged in stable condition. The patient was instructed to return for worsening symptoms. Medical Decision X-rays negative with the exception of L1 compression fracture. Patient again not reporting any headache or head of the head. He reports no difficulties urinating, no incontinence. No hematuria. I performed a beside FAST exam with ultrasound on the patient. I attempted to query PDMP. The website however states that the site is currently unavailable.Oxycodone/Acetaminophen 1 tab PO. DC with follow-up PCP and orthotic, analgesia prescription given. DISCHARGE - Plan of care discussed with patient and questions answered. The patient was given both verbal and printed discharge instructions. The patient verbalized understanding and ability to comply. The patient is to seek outpatient follow up as noted in the discharge instructions. The patient verbalized understanding and ability to comply. The patient is discharged in stable condition. The patient was instructed to return for worsening symptoms. [place] Drug Monitoring [place] Search Results: see additional documentation Drug Monitoring Findings: I attempted to query PDMP. The website however states that the site is currently unavailable. Medication Reconcilliation Current Medication List: was personally reviewed by me Blood Pressure Screening Patient's blood pressure: Elevated blood pressure Blood pressure disposition: Elevated BP felt to be situational Impression Primary Impression: Lumbar compression fracture Additional Impression: Fall Scribe Attestation The scribe's documentation has been prepared under my direction and personally reviewed by me in its entirety. I confirm that the note above accurately reflects all work, treatment, procedures, and medical decision making performed by me. The chart was completed utilizing [employer] Speech voice recognition software. Grammatical errors, random word insertions, pronoun errors, and incomplete sentences are an occasional consequence of this system due to software limitations, ambient noise, and hardware issues. Any formal questions or concerns about the content, text, or information contained within the body of this dictation should be directly addressed to the physician for clarification. Departure Information Dispostion Home / Self-Care Prescriptions Oxycodone/Acetaminophen 5MG/325MG (PERCOCET 5MG/325MG) Tab 1 TAB PO TID Y for Pain, #7 TAB Prov: Dario Durham M.D. 02/04/18 Referrals Cesilia Workman M.D. (PCP) Forms HOME CARE DOCUMENTATION FORM, IMPORTANT VISIT INFORMATION Patient Instructions My [facility] Additional Instructions Return to the emergency department if you develop blood in your urine, fever greater than 100.4, inability to urinate, urinary incontinence, numbness in your legs. Problem Qualifiers Primary Impression: Lumbar compression fracture Encounter type: initial encounter Lumbar vertebra fracture level: L1 Fracture type: closed Qualified Codes: S32.010A - Wedge compression fracture of first lumbar vertebra, initial encounter for closed fracture Additional Impression: Fall Encounter type: initial encounter Qualified Codes: W19.XXXA - Unspecified fall, initial encounter
[2018-02-04] MEDS ORDERED: TPRSR/100 PO (14:36)
[2018-02-04] MEDS ORDERED: RANI150T2 PO (14:36)
--- NOTE | 2018-02-04 15:27 | DIAGNOSTIC IMAGING REPORT ---
TWO VIEW CHEST CLINICAL HISTORY: Fall from ladder. FINDINGS: PA and lateral chest radiographs are compared to study dated 10/02/2017. The heart is enlarged and there is atherosclerotic calcification of the thoracic aorta. The pulmonary vasculature is noncongested. Chronic interstitial thickening is similar to previous. No airspace consolidation or pleural effusion is identified. There is no pneumothorax. The skeletal structures are osteopenic. The bony thorax appears intact. IMPRESSION: Cardiomegaly with no active disease in the chest. Electronically signed by: Geo Ramos M.D. 02/04/2018 3:26 PM Dictated Date/Time: 02/04/2018 3:24 PM
--- NOTE | 2018-02-04 15:28 | DIAGNOSTIC IMAGING REPORT ---
SINGLE VIEW PELVIS CLINICAL HISTORY: Fall. FINDINGS: 2 AP pelvic radiographs are compared to study dated 05/26/2017. The skeletal structures are osteopenic. No fracture is seen involving the hips or bony pelvis. Mild arthritic change and joint space narrowing is seen in the hips. The sacroiliac joints are normal as imaged. Fusion hardware is partially visualized in the lower lumbar spine. The overlying soft tissues are normal in appearance. Atherosclerotic calcification is seen in the femoral arteries. Phleboliths are noted in the pelvis. No bowel obstruction is identified. IMPRESSION: Osteopenia with no radiographic evidence of fracture involving the hips or bony pelvis. Electronically signed by: Geo Ramos M.D. 02/04/2018 3:27 PM Dictated Date/Time: 02/04/2018 3:26 PM
[2018-02-04 15:40] VITALS: BP 167/112
--- NOTE | 2018-02-04 15:44 | DIAGNOSTIC IMAGING REPORT ---
THORACIC SPINE 3 VIEWS CLINICAL HISTORY: Fall. FINDINGS: AP, lateral, and swimmer's views of the thoracic spine are correlated with lateral chest x-ray dated 02/14/2017. The skeletal structures are osteopenic. There is no radiographic evidence of fracture or malalignment involving the thoracic spine. Anterior osteophytes are seen throughout. The transverse processes and pedicles are grossly intact as seen on the frontal view. Mild multilevel degenerative disc space narrowing is observed. The visualized lung parenchyma appears clear. Cardiomegaly is noted. IMPRESSION: Osteopenia and degenerative change as above. There is no radiographic evidence of fracture or malalignment involving the thoracic spine. Electronically signed by: Geo Ramos M.D. 02/04/2018 3:42 PM Dictated Date/Time: 02/04/2018 3:41 PM
--- NOTE | 2018-02-04 15:59 | DIAGNOSTIC IMAGING REPORT ---
LUMBAR SPINE 5 VIEWS CLINICAL HISTORY: Fall with low back pain. FINDINGS: Five views of the lumbar spine are compared to study dated to12/09/2017. Correlation is made with abdominal CT dated 01/24/2015. The skeletal structures are osteopenic. A minimal superior endplate compression deformity is suggested involving L1. Vertebral body height is otherwise maintained throughout the lumbar spine. Minimal anterolisthesis at L5-S1 is unchanged. Alignment is otherwise preserved. There are postoperative changes from discectomy at L3-L4 with laminectomy and posterior fusion at this level. The orthopedic hardware appears intact. The transverse processes are intact as visualized. There is no evidence of spondylolysis. Anterior and lateral marginal osteophytes are seen throughout. A nonspecific 1.4 cm sclerotic focus is again seen in the body of L2, and is unchanged dating back to at least 2014. Advanced facet arthropathy is seen in the lower lumbar region. There is advanced disc space narrowing at L5-S1. Moderate disc space narrowing is seen at L4-L5. The bony pelvis is intact as visualized. There is a nonobstructed abdominal bowel gas pattern noting moderate colonic fecal retention. Phleboliths are observed in the pelvis. Suture material is noted in the right upper quadrant. Atherosclerotic calcification is noted in the abdominal aorta. IMPRESSION: 1. Question minimal superior endplate compression deformity of L1. Correlate for point tenderness at this level. 2. No additional findings are concerning for fracture. 3. Osteopenia with postoperative and spondylotic change, as above. Dictated: 02/04/2018 3:31 PM Transcribed: 02/04/2018 3:59 PM [email or web address] Electronically signed by: Geo Ramos M.D. 02/04/2018 4:00 PM Dictated Date/Time: 02/04/2018 3:31 PM
[2018-02-04] MEDS ORDERED: OXYC-57 PO (17:02)
[2018-02-04] MEDS: OXYCODONE/ACETAMINOPHEN 5-325 TAB PO ONE ×2 (17:17→17:25)
[2018-02-04 17:35] VITALS: PULSE 64; O2SAT 95
== END 2018-02-04 17:35 | disposition home or self-care (01) ==
LOC: C.EDB 14:06 → C.EDC 17:35
DX: S32.010A Wedge compression fracture of first lumbar vertebra, initial encounter for closed fracture (principal); I10 Essential (primary) hypertension; E11.9 Type 2 diabetes mellitus without complications; Z94.4 Liver transplant status; Z79.4 Long term (current) use of insulin; Z79.82 Long term (current) use of aspirin; Z79.899 Other long term (current) drug therapy; Z88.6 Allergy status to analgesic agent; Z82.49 Family history of ischemic heart disease and other diseases of the circulatory system; Z83.3 Family history of diabetes mellitus; W11.XXXA Fall on and from ladder, initial encounter

== ENCOUNTER → 2018-06-28 | Outpatient (CLI) | payer OTHER ==
[~2018-06-28] MED LIST changes: -CEPH-571 PO; -DXY100 PO; +OXYC-57 PO; +RANI150T2 PO; +TPRSR/100 PO
== END | disposition home or self-care (01) ==
LOC: C.LABPVFM 14:23
PROVIDERS: ATTEND Urology
DX: N40.1 Benign prostatic hyperplasia with lower urinary tract symptoms (principal); Z12.5 Encounter for screening for malignant neoplasm of prostate

== ENCOUNTER 2019-05-31 10:54 | Inpatient (IN) ==
--- NOTE | 2019-05-23 12:24 | PAT Medication Instructions ---
Medication Instructions Date of Service May 23, 2019 Home Medications Medication Instructions Recorded oxycodone-acetaminophen 5 mg-325 1 tab PO Q12H PRN #60 tab 05/21/ mg tablet Novolog Flexpen U-100 Insulin 1 dose SUBCUT UD Probiotic 1 cap PO QAM Prolia 1 dose SUBCUT UD Tresiba U-100 Insulin 16 unit SUBCUT QAM aspirin [Aspir-Low] 81 mg PO QAM calcitriol 0.5 mcg PO QAM calcium carbonate [Calcium 600] 600 mg PO BID fludrocortisone 0.1 mg PO QPM meclizine 25 mg PO DAILY PRN metoprolol succinate 100 mg PO QAM prednisone 5 mg PO QAM tacrolimus [Prograf] 3 mg PO QAM tamsulosin [Flomax] 0.4 mg PO QPM ursodiol 300 mg PO BID venlafaxine 37.5 mg PO QPM tacrolimus [Prograf] 2 mg PO QPM metoprolol succinate 25 mg PO QAM oxycodone-acetaminophen 5 mg-325 mg tablet 1 tab PO Q12H PRN Continue as directed aspirin [Aspir-Low] 81 mg PO QAM *check with Dr. Madrigal to see if you should start taking this again STOP taking 48 hours before surgery ursodiol 300 mg PO BID DO NOT take the morning of surgery Novolog Flexpen U-100 Insulin 1 dose SUBCUT UD Probiotic 1 cap PO QAM calcitriol 0.5 mcg PO QAM calcium carbonate [Calcium 600] 600 mg PO BID Take morning of surgery With a small sip of water, OTHERWISE NOTHING TO EAT OR DRINK AFTER MIDNIGHT: meclizine 25 mg PO DAILY PRN (if needed) metoprolol succinate 100 mg PO QAM prednisone 5 mg PO QAM tacrolimus [Prograf] 3 mg PO QAM metoprolol succinate 25 mg PO QAM oxycodone-acetaminophen 5 mg-325 mg tablet 1 tab PO Q12H PRN (if needed, may be taken up to four hours before surgery) Take evening before surgery Novolog Flexpen U-100 Insulin 1 dose SUBCUT UD calcium carbonate [Calcium 600] 600 mg PO BID fludrocortisone 0.1 mg PO QPM meclizine 25 mg PO DAILY PRN tamsulosin [Flomax] 0.4 mg PO QPM venlafaxine 37.5 mg PO QPM tacrolimus [Prograf] 2 mg PO QPM oxycodone-acetaminophen 5 mg-325 mg tablet 1 tab PO Q12H PRN (if needed) Insulin Dependent Diabetic Patients * Test your blood sugar the morning of surgery * If Blood Sugar is GREATER THAN 150, take HALF of your regular dose of: Tresiba U-100 Insulin 16 unit SUBCUT QAM -- TAKE 8 UNITS * If Blood Sugar is LESS THAN 150, DO NOT TAKE ANY: Tresiba U-100 Insulin Other Notes If you have any questions please call us at [phone] or [phone] or [phone] or [phone]
--- NOTE | 2019-05-23 12:34 | Anesthesiology Consultation ---
Date of Service May 23, 2019 Assessment & Plan (1) Encounter for pre-operative examination: Cardiology Clearance (Rohan) 05/18/19 = "The patient is stable from a cardiovascular standpoint. He continues to demonstrate excellent control of his blood pressure and lipid values. His echo notes normal left ventricular systolic function and his stability of his chronic small pericardial effusion. He continues to demonstrate excellent functional status without limiting cardiac symptoms. He is an acceptable cardiac risk for back surgery without further testing." PCP Clearance (Bailey) 05/17/19 = "Pt's vitals are WNL/acceptable. Exam unremarkable. Pt's BW from 04/2019 showing stable H/H, and only mild renal dysfunction (which is essentially baseline for the pt). Last A1C was 5.7 (03/2019), and so sugars are controlled...Based on above, pt is medically optimized for the planned back surgery ("cleared"). CHECK BSG AM DOS Chart Review Chart Review: Acceptable Risk for Surgery and Patient seen in Pre Admission Testing Teaching & Discussion Instructed NPO after midnight before surgery, except medications with 15 cc of water. Medication instructions provided according to the PAT guidelines. History Surgery Operation Date: 05/31/19 10:25 Proposed Procedures p L2-S1 Decompression and Fusion, L3-L4 Hardware Removal with Spinal Cord Monitoring - Dewayne Hewitt, Height/Weight Height: 5 ft 11 in Weight: 80.8 kg Allergies Allergy/AdvReac Type Severity Reaction Status Date / Time aspirin AdvReac Unknown high doses Verified 05/17/19 13:23 contrindicated d/t hx liver transplant ibuprofen AdvReac Unknown not to Verified 05/17/19 13:23 take due to transplant Medications Home Medications Medication Instructions Recorded Confirmed Last Taken Novolog Flexpen U-100 Insulin 1 dose SUBCUT UD 01/09/19 05/17/19 02/25/19 Probiotic 1 cap PO QAM 01/09/19 05/17/19 02/25/19 Prolia 1 dose SUBCUT UD 01/09/19 05/17/19 02/22/19 Tresiba U-100 Insulin 16 unit SUBCUT QAM 01/09/19 05/17/19 02/25/19 aspirin [Aspir-Low] 81 mg PO QAM 01/09/19 05/17/19 02/25/19 calcitriol 0.5 mcg PO QAM 01/09/19 05/17/19 02/25/19 calcium carbonate [Calcium 600] 600 mg PO BID 01/09/19 05/17/19 02/25/19 fludrocortisone 0.1 mg PO QPM 01/09/19 05/17/19 02/25/19 meclizine 25 mg PO DAILY PRN 01/09/19 05/17/19 1 Year Ago ~01/29/18 metoprolol succinate 100 mg PO QAM 01/09/19 05/17/19 02/25/19 prednisone 5 mg PO QAM 01/09/19 05/17/19 02/25/19 tacrolimus [Prograf] 3 mg PO QAM 01/09/19 05/17/19 02/25/19 tamsulosin [Flomax] 0.4 mg PO QPM 01/09/19 05/17/19 02/25/19 ursodiol 300 mg PO BID 01/09/19 05/17/19 02/25/19 venlafaxine 37.5 mg PO QPM 01/09/19 05/17/19 02/25/19 tacrolimus [Prograf] 2 mg PO QPM 02/26/19 05/17/19 02/25/19 metoprolol succinate 25 mg PO QAM 05/17/19 05/17/19 Unknown oxycodone-acetaminophen 5 mg-325 1 tab PO Q12H PRN #60 tab 05/21/19 Unknown mg tablet Past Medical History Medical History Anxiety BPH (benign prostatic hyperplasia) CKD (chronic kidney disease) Cancer SKIN CANCER-BASAL CELL/SQUAMOUS Chronic back pain TO BILAT LEGS Degenerative disc disease Depression Diabetes mellitus, type 2 Hypertension Irregular heart rate HX Pancreatitis HX Sclerosing cholangitis S/P liver transplant 1994 Exercise / Class Metabolic Activity II 4-5 Yardwork/Stairs/Walk up hill (Denies CP or SOB with 1 FOS, does daily) Past Surgical History Surgical History Fusion of spine LUMBAR H/O exploratory laparotomy FOR HEMATOMA/DIVERTIULITIS?-02/23/19 [facility] History of appendectomy History of cholecystectomy History of colonoscopy History of esophagogastroduodenoscopy (EGD) History of herniorrhaphy X 2 History of liver biopsy History of oral surgery Posts implanted in mandible for bottom denture History of tooth extraction Transplant LIVER 1994 IN [place] ([facility]) Past Anesthesia History No Hx of Anesthesia Complications and No Family Hx of Anesthesia Complications History of PONV No Hx of PONV and No Hx of Motion Sickness Social History Smoking Status: Former smoker tobacco type: cigarettes Smoking cigarettes per day: QUIT 1971 Do You Dip or Chew Tobacco: No Smoking End Date: QUIT 1971 Hx Alcohol Use: No Hx Substance Use: No substance use type: does not use Review of Systems Pt denies any recent chest pain, shortness of breath, palpitations, cough, fever or URI. Physical Exam Vital Signs BP: 144/83 P: 106bpm SPO2: 97% RA T: 98.2 F R: 18 ENMT Mouth: + dentures and + edentulous Thyromental Distance: > or= 3.5 Finger Breadths (4) Mallampati Class: I Neck normal visual inspection; neck extension not limited Respiratory normal respiratory effort Auscultation: lungs clear to auscultation bilaterally Cardiovascular Rate/Rhythm: regular rhythm and + tachycardic Heart Sounds: no murmur Vessels: no carotid bruit Extremities: no edema Testing Laboratory Results PT 10.7 Seconds (9.0-12.0) 05/23/19 12:54 INR 1.0 (0.9-1.1) 05/23/19 12:54 APTT 27.5 Seconds (21.0-31.0) 05/23/19 12:54 Urine Color Dark Yellow 05/23/19 12:54 Urine Appearance Clear (Clear) 05/23/19 12:54 Urine pH 5.5 (4.5-7.5) 05/23/19 12:54 Ur Specific [place] 1.025 (1.000-1.030) 05/23/19 12:54 Urine Protein 3+ (Negative) H 05/23/19 12:54 Urine Glucose (UA) Negative (Negative) 05/23/19 12:54 Urine Ketones Negative (Negative) 05/23/19 12:54 Urine Nitrite Negative (Negative) 05/23/19 12:54 Ur Leukocyte Esterase Negative (Negative) 05/23/19 12:54 Urine WBC (Auto) 1-5 /hpf (0-5) 05/23/19 12:54 Urine RBC (Auto) 0-4 /hpf (0-4) 05/23/19 12:54 U Hyaline Cast (Auto) 1-5 /lpf (0-5) 05/23/19 12:54 U Epithel Cells (Auto) 10-20 /lpf (0-5) H 05/23/19 12:54 Urine Bacteria (Auto) Negative (Negative) 05/23/19 12:54 Blood Type A Positive 05/23/19 12:54 Antibody Screen NEGATIVE 05/23/19 12:54 04/17/19 WBC: 6.30 H/H: 13.4/39.2 PLATELETS: 119 SODIUM: 139 POTASSIUM: 4.6 CHLORIDE: 101 CO2: 31 BUN: 46 CREATININE: 2.07 GLUCOSE: 143 Electrocardiogram Date: 02/22/19 Findings: + NSR @ (98) Borderline left axis deviation. NSTWA. Chest X-Ray Date: 05/23/19 IMPRESSION: Cardiomegaly. No other convincing evidence of acute cardiopulmonary disease. Echocardiogram Date: 09/15/14 EF: 55-60% Normal biventricular systolic function. Mild left atrial dilatation. Moderate concentric left ventricular hypertrophy. Trace aortic , mitral, and tricuspid regurgitation. Small pericardial effusion. No evidence of cardiac tamponade. Compared to an echo of 05/11/2013 there is no significant interval change. The study was technically difficult.
--- NOTE | 2019-05-23 13:22 | XRay Report ---
XR chest Pre-admission PA/Lat CLINICAL HISTORY: 78 years-old Male presenting with preoperative evaluation. TECHNIQUE: PA and lateral views of the chest were obtained. COMPARISON: 10/02/2017. FINDINGS: Atherosclerosis of the aortic arch. Cardiac silhouette enlarged. No pulmonary vascular prominence on the current exam. Lungs and pleural spaces clear. Degenerative changes of the thoracic spine. Upper a bdomen normal. IMPRESSION: 1. Cardiomegaly. No other convincing evidence of acute cardiopulmonary disease. Electronically signed by: Jose Arnold M.D. 05/23/2019 1:21 PM
[2019-05-23 14:37] LABS: Partial Thromboplastin Time 27.5 Seconds (21.0-31.0); Prothrombin Time 10.7 Seconds (9.0-12.0)
[2019-05-23 14:38] LABS: Appearance Urine Clear (Clear); Bacteria Urine Automated Negative (Negative); Bilirubin Urine Negative (Negative); Blood Urine Trace (Negative); Color Urine Dark Yellow; Glucose Urine UA Negative (Negative); Ketones Urine Negative (Negative); Leukocyte Esterase Urine Negative (Negative); Nitrite Urine Negative (Negative); Protein Urine 3+ (Negative); RBC Urine Automated 0-4 /hpf (0-4); Specific Gravity Urine 1.025 (1.000-1.030); Urobilinogen Urine Negative (Negative); pH Urine 5.5 (4.5-7.5)
[~2019-05-31 10:54] MED LIST changes: -ASPI-435 PO; -CALC-5 PO; -CALC1CAP36 PO; +CEFAZOLIN 1000MG 1,000 MG/7.5 ML SYR IV SCH; +CEFAZOLIN 2000MG 2,000 MG/15 ML SYR IV SCH; -FLM4 PO; -FLUD0.1T10 PO; -INSU3INJ3 SQ; -LISI-789 PO; -LVMIPEN SQ.; -MECL1TAB40 PO; -MISCCAP80 PO; -NVLGI/PEN SQ; -NVLGIPEN SQ; -OXYC-57 PO; -PRED-301 PO; -RANI150T2 PO; +SODIUM CHLORIDE 0.9% 1000ML IV SCH; -TACR1CAP PO; -TPRSR/100 PO; -URSO300C8 PO; -VENL37.593 PO
[2019-05-31] MEDS ORDERED: fentaNYL citrate 100 MCG/2 ML VIAL ONE ×2 (11:49→13:06)
--- NOTE | 2019-05-31 11:53 | History & Physical Bridge Note ---
Date of Service May 31, 2019 History & Physical Bridge Note I have examined the patient, reviewed the History & Physical and in the interval since the performance of the History & Physical I have noted the following changes of clinical significance: no changes noted
--- NOTE | 2019-05-31 11:56 | History & Physical Report ---
Date of Service May 31, 2019 Assessment & Plan (1) Spinal stenosis, lumbar region with neurogenic claudication: Spine decompression fusion L5-S1 hardware removal L3-4 Present on Admission?: Yes History of Present Illness Chief Complaint: Back and leg pain Primary Care Provider: eCsilia Workman MD Since with chronic persistent back and bilateral leg pain is here for surgical intervention. Allergies Allergy/AdvReac Type Severity Reaction Status Date / Time aspirin AdvReac Unknown high doses Verified 05/31/19 11:41 contrindicated d/t hx liver transplant ibuprofen AdvReac Unknown not to Verified 05/31/19 11:41 take due to transplant Home Medications Home Medications Medication Instructions Recorded Confirmed Type Novolog Flexpen U-100 Insulin 1 dose SUBCUT UD 01/09/19 05/17/19 History Probiotic 1 cap PO QAM 01/09/19 05/17/19 History Prolia 1 dose SUBCUT UD 01/09/19 05/17/19 History Tresiba U-100 Insulin 16 unit SUBCUT QAM 01/09/19 05/17/19 History aspirin [Aspir-Low] 81 mg PO QAM 01/09/19 05/17/19 History calcitriol 0.5 mcg PO QAM 01/09/19 05/17/19 History calcium carbonate [Calcium 600] 600 mg PO BID 01/09/19 05/17/19 History fludrocortisone 0.1 mg PO QPM 01/09/19 05/17/19 History meclizine 25 mg PO DAILY PRN 01/09/19 05/17/19 History metoprolol succinate 100 mg PO QAM 01/09/19 05/17/19 History prednisone 5 mg PO QAM 01/09/19 05/17/19 History tacrolimus [Prograf] 3 mg PO QAM 01/09/19 05/17/19 History tamsulosin [Flomax] 0.4 mg PO QPM 01/09/19 05/17/19 History ursodiol 300 mg PO BID 01/09/19 05/17/19 History venlafaxine 37.5 mg PO QPM 01/09/19 05/17/19 History tacrolimus [Prograf] 2 mg PO QPM 02/26/19 05/17/19 History metoprolol succinate 25 mg PO QAM 05/17/19 05/17/19 History oxycodone-acetaminophen 5 mg-325 1 tab PO Q12H PRN #60 tab 05/21/19 Rx mg tablet Past Med/Surg History Social History Preferred Language: Uzbek Communication Ability: Effective 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
[2019-05-31] MEDS ORDERED: ALBUMIN HUMAN 5% 12.5 GM/250 ML VIAL IV ONE (12:06)
[2019-05-31] MEDS ORDERED: BACITRACIN INJ 50,000 UNIT VIAL ONE (12:07)
[2019-05-31] MEDS ORDERED: BUPIVACAINE/EPINEPHRINE 0.5% MPF 1:200,000 30 ML VIAL ONE (12:07)
[2019-05-31] MEDS ORDERED: HYDROmorphone INJ 1 MG/ML SYRINGE IV PRN (12:26)
[2019-05-31] MEDS ORDERED: ATROPINE SULFATE 0.1 MG/ML 10ML SYR IV PRN (12:26)
[2019-05-31] MEDS ORDERED: ONDANSETRON INJ 2 MG/ML 2 ML VIAL IV PRN ×2 (12:26→17:33)
[2019-05-31] MEDS ORDERED: ePHEDrine sulfate 50 MG/ML AMP IV PRN (12:26)
[2019-05-31] MEDS ORDERED: HYDROmorphone INJ 2 MG/ML SYR/VIAL ONE (13:06)
[2019-05-31] MEDS ORDERED: DEXAMETHASONE SOD INJ 4 MG/ML VIAL ONE (13:31)
[2019-05-31] MEDS ORDERED: ONDANSETRON INJ 2 MG/ML 2 ML VIAL ONE (13:31)
[2019-05-31] MEDS ORDERED: LIDOCAINE HCL 2% 2 ML VIAL/AMP(20MG/ML) INFIL ONE (13:31)
[2019-05-31] MEDS ORDERED: GLYCOPYRROLATE 0.2 MG/ML VIAL ONE (13:31)
[2019-05-31] MEDS ORDERED: ROCURONIUM BROMIDE 10 MG/ML 5 ML VIAL ONE (13:31)
[2019-05-31] MEDS ORDERED: NEOSTIGMINE METHYLSULFATE 1 MG/ML 10ML VIAL ONE (13:31)
[2019-05-31] MEDS ORDERED: ePHEDrine sulfate 50 MG/ML SYR ONE (13:31)
[2019-05-31] MEDS ORDERED: PROPOFOL IV EMULSION 10 MG/ML 20 ML VIAL IV ONE (13:31)
--- NOTE | 2019-05-31 15:34 | Operative Report ---
Post Operative Report Pre & Post Diagnosis Operation Date: 05/31/19 12:45 Pre-Op Diagnosis: Lumbar spinal stenosis with neurogenic claudication Spina bifida occulta with spondylolisthesis L5-S1 Post-Op Diagnosis: Same Procedure Operation Date: 05/31/19 12:45 Actual Procedures #1 removal of posterior instrumentation L3-4. #2 exploration of fusion L3-4. #3 lumbar decompression with bilateral medial facetectomies foraminotomies L4-5 L5-S1. #4 posterior spinal fusion L2-3 L4-5 L5-S1. #5 placement posterior segmental instrumentation L2-S1. #6 interbody fusion L4-5 L5-S1. #7 placement of peek cage 10 x 26 mm of L for 5 and 11 x 26 mm at L5-S1. #8 treatment of local autograft in the posterior lateral gutters L2-3 L4-5 L5-S1. #9 placement infuse collagen sponge, master graft and posterior gutters at L2-3 L4-5 L5-S1 and and ostial amp and interbody spaces. Surgeon Dewayne Hewitt, Chore Worker Ree Medley Estimated Blood Loss 650 Findings See Below Specimens None Indications This is a 70-year-old male who presents with above-mentioned diagnosis after failing extensive course of nonoperative care is here for surgical intervention. Description of Procedure Patient was met with identified and informed consent obtained. Patient was then taken to the operative suite underwent intubation placed in a prone position the Derrick table on top of the Artemio frame. All bony prominences well-padded eyes inspected to ensure no external pressure placed upon the peer at this point the lumbar spine was prepped and draped in the normal sterile fashion. Sharp dissection with the assistance of Bovie cautery was performed down to and exposing the lamina processes of L2 instrumentation at L3 and L4 and the lamina lamina and transverse processes of L4-5 and sacral ala bilaterally. Then proceed remove the hardware at L3-4 bilaterally explore the fusion mass noting it to be intact. Then performed a complete laminectomy of L5 noting spina bifida occulta and bilateral pars defect and a complete laminectomy of L4. This included bilateral medial facetectomies and foraminotomies to address severe stenosis. Pedicle screws were then placed in L2 L3-L4-L5 and S1 with the assistance of fluoroscopy. The appropriate size simone contoured and placed. By way of a transforaminal approach on the right complete discectomy of L5-S1 was performed endplates curetted to subcortical bleeding bone and a 11 x 26 mm peek cage filled with osteo-amp bone graft tapped in position. Then proceeded to L4- [address] of a transforaminal approach on the right complete discectomy performed in plate graded to subcortical being bone and a 10 x 26 mm peek cage filled with ostium bone graft tapped in position. The rods were then locked in final position bilaterally. The transverse processes of L to L3-L4-L5 and the sacral ala bur to subcortical bleeding bone. Infuse collagen sponge mass graft local autograft placed in the posterior lateral gutters. 15 round MARIAH drain inserted. Incision was then closed with 1 Vicryl fascia 2-0 Vicryl subcutaneously and 4 Monocryl for final closure. Steri-Strip sterile dressings placed. Patient will continue to PACU stable condition. Please note Ree Medley present at the entire procedure involved in patient positioning complex portions of the surgery and final skin closure. Lastly spinal cord monitoring was utilized throughout the procedure no changes noted. I attest to the content of the Intraoperative Record and any orders documented therein. Any exceptions are noted below.
[2019-05-31] MEDS ORDERED: FLOSEAL HEMOSTATIC MATRIX 10ML TOP ONE (15:40)
--- NOTE | 2019-05-31 15:41 | Fluoroscopy Report ---
FL lumbar spine 2-3V CLINICAL HISTORY: L2-S1 DECOMPRESSION AND FUSION, L3-4 HARDWARE REMOVAL COMPARISON STUDY: None FLUOROSCOPY TIME: 30 seconds NUMBER OF FLUOROSCOPIC IMAGES: 4 FINDINGS: Image intensifier assistance was provided for a lumbar laminectomy and fusion. Fusion and l aminectomy extends from L2 through S1. IMPRESSION: Image intensifier support intraoperatively for a L2-S1 laminectomy and fusion The above report was generated using voice recognition software. It may contain grammatical, syntax or spelling errors. Electronically signed by: Haresh Wallis M.D. 05/31/2019 3:40 PM
[2019-05-31] MEDS: fentaNYL citrate 100 MCG/2 ML VIAL IV PRN ×2 (16:13→16:57)
--- NOTE | 2019-05-31 17:27 | Anesthesiology Progress Note ---
Date of Service May 31, 2019 Anesthesia Post Procedure Vital Signs Vital Signs: Temp Pulse Pulse Resp BP BP Pulse Ox 05/31/19 17:10 36.4 C L 75 15 159/90 H 100 05/31/19 17:00 75 12 169/77 H 99 05/31/19 16:50 75 12 166/77 H 99 05/31/19 16:40 76 13 161/82 H 100 05/31/19 16:30 79 17 170/94 H 99 05/31/19 16:15 82 17 170/94 H 100 05/31/19 16:05 84 12 175/85 H 100 05/31/19 15:56 36.2 C L 84 19 160/100 H 100 05/31/19 12:13 36.6 C 69 20 173/97 H 98 Pain Intensity Lower Back: Pain Intensity: 3 Transfer of Care Handoff Completed per policy Notes Mental Status: alert / awake / arousable and participated in evaluation Patient Amnestic to Procedure: Yes Nausea / Vomiting: adequately controlled Pain: adequately controlled Airway Patency, RR, SpO2: stable & adequate BP & HR: stable & adequate Hydration State: stable & adequate Anesthetic Complications: no major complications apparent
[2019-05-31] MEDS ORDERED: MECLIZINE HCL 25 MG TAB PO PRN (17:33)
[2019-05-31] MEDS ORDERED: SOD PHOSPHATE/SOD BIPHOSPHATE ENEMA 132 ML BTL PR PRN (17:33)
[2019-05-31] MEDS ORDERED: MAGNESIUM HYDROXIDE SUSP 30 ML UDC PO PRN (17:33)
[2019-05-31] MEDS ORDERED: METOCLOPRAMIDE HCL INJ 5 MG/ML 2 ML VIAL IV PRN (17:33)
[2019-05-31] MEDS ORDERED: DO NOT ADMINISTER PNEUMOCOCCAL VACCINE PRN (17:33)
[2019-05-31] MEDS ORDERED: ONDANSETRON 4 MG TAB PO PRN (17:33)
[2019-05-31] MEDS ORDERED: PROMETHAZINE HCL 12.5 MG in SODIUM CHLORIDE 0.9% 50 ML IV PRN (17:33)
[2019-05-31] MEDS ORDERED: DO NOT ADMINISTER FLU VACCINE PRN (17:33)
[2019-05-31] MEDS ORDERED: LORazepam 0.5 MG/1 ML VIAL IV PRN (17:33)
[2019-05-31] MEDS ORDERED: FAMOTIDINE 20 MG TAB PO PRN (17:33)
[2019-05-31] MEDS ORDERED: BISACODYL 10 MG SUPP PR PRN (17:33)
[2019-05-31] MEDS ORDERED: LORazepam 0.5 MG TAB PO PRN (17:33)
[2019-05-31] MEDS ORDERED: ALUMINUM/MAGNESIUM SUSP 30 ML UDC PO PRN (17:33)
[2019-05-31] MEDS: HYDROmorphone INJ 0.5 MG/0.5 ML SYR IV PRN ×2 (18:06→21:17)
--- NOTE | 2019-05-31 18:10 | Hospitalist Consultation ---
Date of Consultation May 31, 2019 Assessment & Plan (1) Acute blood loss anemia: Suspect acute blood loss anemia based on clinical evaluation. Patient was hemoglobin checked this evening if less than 8 g to be transfused 2 units packed red blood cells he is already been typed and crossed but surgical team (2) Hypertension: Patient takes metoprolol for his hypertension typically and doses split in the 100 mg of succinate in the morning and a 25 mg of succinate evening this will be maintained (3) Diabetes mellitus, type 2: Patient is an insulin requiring diabetic at home. However because of his oral intake being variable in his postoperative state we will employ sliding scale insulin convert a stress EBU to Lantus but with a glycemic pharmacy consult and a pending hemoglobin A1c (4) BPH (benign prostatic hyperplasia): Patient is a Petersen catheter placement is maintained on Flomax therapy (5) Stage III chronic kidney disease: Patient does suffer from stage III chronic kidney disease he takes Calcitrol and calcium these will be maintained (6) S/P liver transplant: Patient is on Prograf and prednisone and takes a little bit of Florinef therapy to help with blood pressure. Because he is ordered dexamethasone postoperatively by surgery as prednisone typical dosing will be postponed for 48 hours but will watch for steroid deficiency and use hydrocortisone if needed (7) DVT prophylaxis: SCDs History of Present Illness Attending Physician: Dewayne Hewitt, DO L2-S1 Decompression and Fusion with use of Infuse, use of osteoamp; with Spinal Cord Monitoring Surgeon: Dewayne Hewitt L3-L4 Hardware Removal History of Present Illness Patient was seen postoperatively in the company of his . He is pale feels he is got significant back discomfort was just medicated with 0.5 mg of Dilaudid by nursing. 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 The patient did take his full 24 dose of his metoprolol this morning typically takes 100 mg in the morning and 20 5 at night this morning to call 100 mg. Additionally the patient takes long-acting insulin of Tresiba he took 16 units on the morning of 724 but nothing this morning. His also relates to me that when he gets a generic Prograf for his liver transplant typically has some worsening of his liver numbers and was hopeful that we would be able to use brand necessary. I personally called the pharmacy and if we do not bring necessarily encouraged the patient's to bring in her brand name Prograf. Due to the patient's pale color, likely having his heart rate blunted by his beta-susan, will check a hemoglobin level and if it is lessening grams we will transfuse him this evening. The estimated blood loss for surgery was 650ml his last hemoglobin check was in April for his preoperative evaluation. Allergies Allergy/AdvReac Type Severity Reaction Status Date / Time aspirin AdvReac Unknown high doses Verified 05/31/19 11:41 contrindicated d/t hx liver transplant ibuprofen AdvReac Unknown not to Verified 05/31/19 11:41 take due to transplant Home Medications Home Medications Medication Instructions Recorded Confirmed Type Novolog Flexpen U-100 Insulin 1 dose SUBCUT 01/09/19 05/31/19 History Probiotic 1 cap PO QAM 01/09/19 05/31/19 History Prolia 1 dose SUBCUT 01/09/19 05/17/19 History Tresiba U-100 Insulin 16 unit SUBCUT QA 01/09/19 05/31/19 History aspirin [Aspir-Low] 81 mg PO QAM 01/09/19 05/17/19 History calcitriol 0.5 mcg PO QAM 01/09/19 05/31/19 History calcium carbonate [Calcium 600] 600 mg PO BID 01/09/19 05/31/19 History fludrocortisone 0.1 mg PO QPM 01/09/19 05/31/19 History meclizine 25 mg PO DAILY PRN 01/09/19 05/17/19 History metoprolol succinate 100 mg PO QAM 01/09/19 05/31/19 History prednisone 5 mg PO QAM 01/09/19 05/31/19 History tacrolimus [Prograf] 3 mg PO QAM 01/09/19 05/31/19 History tamsulosin [Flomax] 0.4 mg PO QPM 01/09/19 05/31/19 History ursodiol 300 mg PO BID 01/09/19 05/31/19 History venlafaxine 37.5 mg PO QPM 01/09/19 05/31/19 History tacrolimus [Prograf] 2 mg PO QPM 02/26/19 05/31/19 History metoprolol succinate 25 mg PO QAM 05/17/19 05/31/19 History oxycodone-acetaminophen 5 mg-325 1 tab PO Q12H PRN #60 tab 05/21/19 05/31/19 Rx mg tablet Patient History Social History Preferred Language: Mexican Communication Ability: Effective Lead Business Analyst Required: No Beliefs That Will Affect Care: None Current Living Situation: Spouse Other Information That Helps Us Care for You: No Feels Safe at Home: Yes Safety Concerns: Feels Safe At This Time Smoking Status: Former smoker Tobacco Type: cigarettes Cigarettes Per Day: QUIT 1971 Do You Dip or Chew Tobacco: No Smoking End Date: QUIT 1971 Second Hand Exposure: No Hx Alcohol Use: No Hx Substance Use: No Review of Systems Review of Systems: ROS: Patient appears fatigued weak and pale No double vision blurry vision No problems with speech or swallowing No palpitations, chest pain or pressure No Wheezing or breathing issues No abdominal pain nausea vomiting diarrhea changes in appetite or weight No burning urine urine frequency or changes in color No focal joint pain or muscle pain No skin rashes or oral lesions he appears pale, conjunctiva and general color No unusual bruising or bleeding Lumbar back pain without radicular symptoms No changes in memory or confusion Physical Exam Physical Exam: The patient appeared well nourished in mild to moderate distress and pale as mentioned Vital signs as documented. Head exam is unremarkable. normocephalic, atraumatic, conjunctiva are pale as well as palmar creases Neck is without jugular venous distension, thyromegaly, or lymphademopathy Lungs are clear to auscultation and percussion. Cardiac exam reveals Rhythm is regular. Abdominal exam reveals normal bowel sounds, no masses, no organomegaly, he has some scarring on his abdomen which periods previously were irritated but this is normal-appearing Extremities are nonedematous and both pedal pulses are present Neurologic exam is A&Ox3, no focal deficits, strength is equal bilateral Psychologically seems neither anxious or depressed Skin is warm Dry Results & Data Vital Signs (Past 12 Hours) Vital Signs Temp Pulse Pulse Resp BP BP Pulse Ox 05/31/19 18:01 36.4 C L 76 18 175/91 H 100 05/31/19 17:34 36.5 C 85 16 197/95 H 98 05/31/19 17:10 36.4 C L 75 15 159/90 H 100 05/31/19 17:00 75 12 169/77 H 99 05/31/19 16:50 75 12 166/77 H 99 05/31/19 16:40 76 13 161/82 H 100 05/31/19 16:30 79 17 170/94 H 99 05/31/19 16:15 82 17 170/94 H 100 05/31/19 16:05 84 12 175/85 H 100 05/31/19 15:56 36.2 C L 84 19 160/100 H 100 05/31/19 12:13 36.6 C 69 20 173/97 H 98 PG Care Time/CCT Total # of Minutes Spent Total Time Spent with Patient: Total time spent is greater than 50% in coordination of care (as documented) at patient's floor/unit and/or counseling patient:
[2019-05-31] MEDS ORDERED: DEXTROSE 50% 50 ML SYRINGE IV PRN ×2 (18:14→18:15)
[2019-05-31] MEDS ORDERED: CARBOHYDRATES FOR HYPOGLYCEMIA PO PRN (18:14)
[2019-05-31] MEDS ORDERED: GLUCOSE 40% GEL 15 GM TUBE PO PRN ×2 (18:14→18:15)
[2019-05-31] MEDS ORDERED: GLUCAGON FOR INJ 1 MG VIAL SQ PRN (18:14)
[2019-05-31] MEDS ORDERED: GLUCOSE 10 TABS/TUBE PO PRN ×2 (18:14→18:15)
[2019-05-31] MEDS ORDERED: GLUCAGON FOR INJ 1 MG VIAL IM PRN (18:15)
[2019-05-31] MEDS: SODIUM CHLORIDE 0.9% 1000ML 1,000 ML IV SCH (19:42)
[2019-05-31] MEDS: OXYCODONE HCL IR 5 MG TAB (IMMEDIATE RELEASE) PO PRN (19:49)
[2019-05-31] MEDS: CEFAZOLIN 2000MG 2,000 MG/15 ML SYR IV SCH (19:51)
[2019-05-31] MEDS ORDERED: PHARMACY GLYCEMIC MGMT CONSULT PRN (20:22)
[2019-05-31] MEDS: TAMSULOSIN HCL 0.4 MG CAP PO SCH (20:35)
[2019-05-31] MEDS: DOCUSATE SODIUM/SENNA 50/8.6MG TAB PO SCH (20:35)
[2019-05-31] MEDS: VENLAFAXINE HCL 37.5 MG TAB PO SCH (20:36)
[2019-05-31] MEDS: CALCIUM 600MG + VIT D 400 IU TAB PO SCH (20:36)
[2019-05-31] MEDS: FLUDROCORTISONE ACETATE 0.1 MG TAB PO SCH (20:36)
[2019-05-31] MEDS: URSODIOL 300 MG CAP PO SCH (20:36)
[2019-05-31] MEDS ORDERED: TACROLIMUS 1 MG CAP PO SCH (21:00)
[2019-05-31] MEDS ORDERED: INSULIN GLARGINE SOLOSTAR 100 UNITS/ML 3 ML PEN SC SCH (21:00)
[2019-05-31] MEDS: TACROLIMUS 1 MG CAP PO SCH (21:15)
[2019-05-31] MEDS: INSULIN ASPART 100 UNITS/ML 3 ML PEN SC SCH (21:22)
[2019-05-31] MEDS: dexAMETHasone 6 MG in SYRINGE 0 ML IV SCH (21:40)
[2019-06-01] MEDS ORDERED: INSULIN ASPART 100 UNITS/ML 3 ML PEN SC SCH
[2019-06-01] MEDS: SODIUM CHLORIDE 0.9% 1000ML 1,000 ML IV SCH (02:00)
[2019-06-01] MEDS: CEFAZOLIN 2000MG 2,000 MG/15 ML SYR IV SCH (04:03)
[2019-06-01] MEDS: OXYCODONE HCL IR 5 MG TAB (IMMEDIATE RELEASE) PO PRN ×3 (04:11→18:52)
[2019-06-01] MEDS: POLYETHYLENE (MIRALAX) 17 GM PACK PO SCH ×3 (05:45→17:41)
[2019-06-01] MEDS: dexAMETHasone 6 MG in SYRINGE 0 ML IV SCH ×2 (05:45→13:20)
[2019-06-01 06:08] LABS: Basophils # (auto) 0.01 K/uL (0-0.2); Basophils % (auto) 0.1 %; Hematocrit (blood only) 29.2 % (42-52); Hemoglobin 10.1 g/dL (14.0-18.0); Immature Granulocytes # (auto) 0.07 K/uL (0.00-0.02); Immature Granulocytes % (auto) 0.6 %; Lymphocytes # (auto) 1.09 K/uL (1.2-3.4); Lymphocytes % (auto) 8.9 %; Mean Corpuscular Hgb Conc 34.6 g/dL (32-36); Mean Platelet Volume 10.3 fL (7.4-10.4); Monocytes # (auto) 0.49 K/uL (0.11-0.59); Neutrophils # (auto) 10.53 K/uL (1.4-6.5); Neutrophils % (auto) 86.4 %; Platelet Count 127 K/uL (130-400); RDW Standard Deviation 45.2 fL (36.4-46.3); Red Blood Count 3.32 M/uL (4.7-6.1); White Blood Count 12.19 K/uL (4.8-10.8)
[2019-06-01 06:52] LABS: Albumin Level 2.7 gm/dl (3.4-5.0); BUN Creatinine Ratio 21.6 (10-20); Calcium 7.2 mg/dl (8.5-10.1); Creatinine Clr Calc Pharmacy 28.6 ml/min; Est GFR (African American) 30.9; Est GFR (Non-African American) 26.6; Potassium 4.6 mmol/L (3.5-5.1)
[2019-06-01 06:55] LABS: Bilirubin,Total 0.5 mg/dl (0.2-1); Globulin 2.7 gm/dl (2.5-4.0); Total Protein 5.4 gm/dl (6.4-8.2)
[2019-06-01] MEDS: TRAMADOL HCL 50 MG TABLET PO PRN (07:41)
--- NOTE | 2019-06-01 07:51 | Anesthesiology Progress Note ---
Date of Service June 01, 2019 Anesthesia Post Procedure Vital Signs Vital Signs: Temp Pulse Pulse Resp BP BP Pulse Ox 06/01/19 04:05 98 06/01/19 04:00 36.5 C 78 16 154/74 H 100 05/31/19 22:51 36.4 C L 79 16 144/79 H 100 05/31/19 20:27 36.5 C 76 17 156/90 H 100 05/31/19 20:02 36.3 C L 05/31/19 19:35 74 17 138/80 100 05/31/19 18:30 36.4 C L 74 16 153/79 H 100 05/31/19 18:01 36.4 C L 76 18 175/91 H 100 05/31/19 17:34 36.5 C 85 16 197/95 H 98 05/31/19 17:10 36.4 C L 75 15 159/90 H 100 05/31/19 17:00 75 12 169/77 H 99 05/31/19 16:50 75 12 166/77 H 99 05/31/19 16:40 76 13 161/82 H 100 05/31/19 16:30 79 17 170/94 H 99 05/31/19 16:15 82 17 170/94 H 100 05/31/19 16:05 84 12 175/85 H 100 05/31/19 15:56 36.2 C L 84 19 160/100 H 100 05/31/19 12:13 36.6 C 69 20 173/97 H 98 Pain Intensity Lower Back: Pain Intensity: 8 Notes Mental Status: alert / awake / arousable and participated in evaluation Patient Amnestic to Procedure: Yes Nausea / Vomiting: adequately controlled Pain: adequately controlled Airway Patency, RR, SpO2: stable & adequate BP & HR: stable & adequate Hydration State: stable & adequate Anesthetic Complications: no major complications apparent and Pt Satisfied with anesthetic care
[2019-06-01 07:58] LABS: Estimated Average Glucose 128 mg/dl; Hemoglobin A1C 6.1 % (4.5-5.6)
[2019-06-01] MEDS ORDERED: INSULIN GLARGINE SOLOSTAR 100 UNITS/ML 3 ML PEN SC ONE (08:15)
[2019-06-01] MEDS: INSULIN ASPART 100 UNITS/ML 3 ML PEN SC SCH ×5 (08:28→21:21)
[2019-06-01] MEDS ORDERED: predniSONE 5 MG TAB PO SCH (09:00)
[2019-06-01] MEDS ORDERED: INSULIN GLARGINE SOLOSTAR 100 UNITS/ML 3 ML PEN SC SCH (09:00)
[2019-06-01] MEDS ORDERED: TACROLIMUS 1 MG CAP PO SCH (09:00)
[2019-06-01] MEDS ORDERED: METOPROLOL SUCC 25MG EXT REL TAB PO SCH (09:00)
--- NOTE | 2019-06-01 09:17 | Pharmacy Report ---
Glycemic Control Consultation - Date of Service June 01, 2019 - Scope Scope: Glycemic Pharmacist consulted by Dr Diamond on 05/31/19 for glycemic control and to write orders per [facility] inpatient glycemic control protocol - Objective Weight: 79.469 kg Accuchecks BSG (last 24hrs): 05/31/19 05/31/19 05/31/19 11:59 15:56 17:21 Glucose POC Glucose 93 151 H 157 H 05/31/19 05/31/19 05/31/19 17:56 20:37 23:51 Glucose POC Glucose 167 H 218 H 216 H 06/01/19 06/01/19 06/01/19 05:37 08:04 08:11 Glucose 216 H POC Glucose 332 H* 300 H Laboratory Data (last 24hrs): 06/01/19 05:37 Potassium 4.6 Carbon Dioxide 25 Anion Gap 9.0 Creatinine 2.27 H Est Cr Clr Drug Dosing 28.6 HbA1c: Hemoglobin A1c 6.1 % (4.5-5.6) H 06/01/19 05:37 - Recent Pertinent Medications Outpatient Anti-diabetic Regimen: * Tresiba 16 units SQ QAM * A1c = 3.1 % 06/01/19 The patient is currently receiving: * Basal insulin: Lantus 16 units [employer] and 10 units HS - 26 units total yesterday * Correctional Insulin: Novolog Correction per scale ACHS Goal Range: Low 120 mg/dL - High 160 mg/dL Correction Factor: 25 mg/dL/unit * Prandial insulin: Per carb ratio of 1 unit per 10 grams CHO consumed Risk Factors for Insulin Resistance: * Steroids: Dexamethasone 12mg IV x 1 dose then 6mg IV Q8H x 3 doses (last dose at 1400 today), also on Prednisone 5mg PO daily from home. * Recent Surgery: POD 1 spinal surgery * Diet: Type 2 DM - Assessment & Plan Assessment & Plan: ASSESSMENT: * 78 year old male POD 1 spinal surgery, PMH liver transplant, HTN, BPH, CKD stage III, Type 2 DM, well controlled. * Patient with steroid induced hyperglycemia, will give large stressed dose of Lantus this morning combined with his normal 16 units and tighten CF and CR to cover steroid effects. * Will determine dose of Lantus tomorrow morning, then likley resume home dose on 06/03 when dexamethasone has worn off. * ADA & AACE recommend a goal blood sugar range 140-180 mg/dl for the majority of critically ill & non-critically ill patients. However, more stringent targets may be selected in individual cases. Will utilize more stringent goal of 110-140mg/dl based on patient age & comorbidities. Additionally, tighter glycemic control is warranted to facilitate wound/infection healing. PLAN FOR INPATIENT GLYCEMIC CONTROL: * Basal insulin * Lantus 55 units SQ x 1 this morning * dose for 06/02 TBD tomorrow * likely resume home dose of 16 units daily on 06/03 * Bolus insulin * NovoLog per scale ACHS or Q6hrs while NPO * change: Goal Range: Low 110 mg/dL - High 140 mg/dL * tighten: Correction Factor: 15 mg/dL/unit * tighten: Nutritional / Prandial insulin per carb ratio of 1 unit per 5 grams CHO consumed * Please note that the plan above was derived based on current level of insulin resistance and hospital stress. These recommendations are appropriate for inpatient admission only. Plan of care upon discharge will need to be reassessed to avoid potential outpatient hypo/hyperglycemia. Thank you.
[2019-06-01] MEDS: URSODIOL 300 MG CAP PO SCH ×2 (09:42→21:16)
[2019-06-01] MEDS: LACTOBACILLUS ACIDOPHILUS (FLORANEX) TAB PO SCH (09:42)
[2019-06-01] MEDS: METOPROLOL SUCC 50MG EXT REL TAB PO SCH (09:42)
[2019-06-01] MEDS: CALCIUM 600MG + VIT D 400 IU TAB PO SCH ×2 (09:43→21:17)
[2019-06-01] MEDS: ASPIRIN 81 MG ECTAB PO SCH (09:43)
[2019-06-01] MEDS: TACROLIMUS 1 MG CAP PO SCH ×2 (09:44→21:14)
[2019-06-01] MEDS: CALCITRIOL 0.25 MCG CAPSULE PO SCH (09:44)
[2019-06-01] MEDS ORDERED: NovoLIN-N (NPH) PER UNIT CHARGE SQ ONE (11:00)
--- NOTE | 2019-06-01 14:52 | Orthopedic Progress Note ---
Date of Service June 01, 2019 Assessment & Plan (1) Spinal stenosis, lumbar region with neurogenic claudication: This time we will continue physical therapy monitor his MARIAH output anticipate discharge home or to rehab early next week. Present on Admission?: Yes Subjective Back pain controlled leg pain improved. Physical Exam Physical Exam: Patient is neurologically intact appears comfortable. Results & Data Vital Signs (Past 12 Hours) Vital Signs Temp Pulse Pulse Resp BP Pulse Ox 06/01/19 12:02 36.4 C L 94 H 18 130/70 97 06/01/19 11:06 97 06/01/19 08:00 36.5 C 78 16 124/78 98 06/01/19 04:05 98 06/01/19 04:00 36.5 C 78 16 154/74 H 100
[2019-06-01] MEDS: CARBOHYDRATES FOR HYPOGLYCEMIA PO PRN (17:44)
[2019-06-01] MEDS: VENLAFAXINE HCL 37.5 MG TAB PO SCH (21:14)
[2019-06-01] MEDS: TAMSULOSIN HCL 0.4 MG CAP PO SCH (21:15)
[2019-06-01] MEDS: FLUDROCORTISONE ACETATE 0.1 MG TAB PO SCH (21:15)
[2019-06-01] MEDS: DOCUSATE SODIUM/SENNA 50/8.6MG TAB PO SCH (21:15)
[2019-06-01] MEDS: METOPROLOL SUCC 25MG EXT REL TAB PO SCH (21:16)
[2019-06-02] MEDS: POLYETHYLENE (MIRALAX) 17 GM PACK PO SCH ×4 (00:05→18:35)
[2019-06-02] MEDS: OXYCODONE HCL IR 5 MG TAB (IMMEDIATE RELEASE) PO PRN ×4 (07:02→22:30)
[2019-06-02] MEDS: TACROLIMUS 1 MG CAP PO SCH ×2 (07:55→20:31)
[2019-06-02] MEDS: METOPROLOL SUCC 50MG EXT REL TAB PO SCH (07:56)
[2019-06-02] MEDS: predniSONE 5 MG TAB PO SCH (07:57)
[2019-06-02] MEDS: LACTOBACILLUS ACIDOPHILUS (FLORANEX) TAB PO SCH (07:57)
[2019-06-02] MEDS: ASPIRIN 81 MG ECTAB PO SCH (07:57)
[2019-06-02] MEDS: URSODIOL 300 MG CAP PO SCH ×2 (07:57→20:29)
[2019-06-02] MEDS: CALCIUM 600MG + VIT D 400 IU TAB PO SCH ×2 (07:57→20:29)
[2019-06-02] MEDS: CALCITRIOL 0.25 MCG CAPSULE PO SCH (07:58)
[2019-06-02] MEDS: INSULIN ASPART 100 UNITS/ML 3 ML PEN SC SCH ×4 (08:02→22:37)
[2019-06-02] MEDS: INSULIN GLARGINE SOLOSTAR 100 UNITS/ML 3 ML PEN SC SCH (08:06)
[2019-06-02] MEDS ORDERED: INSULIN GLARGINE SOLOSTAR 100 UNITS/ML 3 ML PEN SC SCH (09:00)
--- NOTE | 2019-06-02 09:56 | Orthopedic Progress Note ---
Date of Service June 02, 2019 Assessment & Plan (1) Spinal stenosis, lumbar region with neurogenic claudication: This time we will continue physical therapy monitor his MARIAH output anticipate discharge possible rehab early next week. Present on Admission?: Yes Subjective Back pain controlled leg symptoms improved. Physical Exam Physical Exam: Patient is sitting in the chair at bedside is good strength testing appears comfortable. Results & Data Vital Signs (Past 12 Hours) Vital Signs Temp Pulse Resp BP BP Pulse Ox 06/02/19 08:00 36.7 C 68 20 122/77 98 06/02/19 06:37 36.5 C 97 H 18 134/76 96 06/02/19 00:03 37.0 C 71 17 155/79 H 95
--- NOTE | 2019-06-02 14:21 | Pharmacy Report ---
Pharmacy Glycemic Short Note 2 - Date of Service June 02, 2019 - Glycemic Short BSG Results (Last 24 hours): 06/01/19 06/01/19 06/01/19 17:37 17:38 17:55 POC Glucose 50 L* 49 L* 71 06/01/19 06/01/19 06/02/19 19:50 21:09 06:35 POC Glucose 125 H 157 H 97 06/02/19 11:47 POC Glucose 181 H OUTPATIENT ANTIDIABETIC REGIMEN: * Tresiba 16 units SQ AM * NovoLog SSI with meals * A1c = 6.1% on 06/01/19 ASSESSMENT: * 78yo T2DM male with excellent outpatient control per A1c. * Pt with SEVERE steroid induced hyperglycemia post-operative from DXM 12mg IV intraop + DXM 6mg IV Q8hrs x 3 doses * Weight based/high stress dosing initiated on POD#1 after severe hyperglycemia occurred. May have been more beneficial to start this dosing immediately post- op. Pt with rebound hypoglycemia yesterday afternoon secondary to insulin stacking/overdosing for AM hyperglycemia. * Last dose of DXM was 24hrs ago- hyperglycemic effect should be diminishing. Will resume outpatient dosing and titrate based on BSG trends PLAN FOR INPATIENT GLYCEMIC CONTROL: * Basal insulin * Lantus 16 units SQ AM * Bolus insulin * NovoLog per scale ACHS or Q6hrs while NPO * Goal Range: Low 110 mg/dL - High 140 mg/dL * Correction Factor: 20 mg/dL/unit * Nutritional / Prandial insulin per carb ratio of 1 unit per 9 grams CHO consumed PLAN FOR DISCHARGE: * A1c is in goal range. No changes needed to outpatient regimen unless patient is experiencing hypoglycemia.
[2019-06-02] MEDS: CARBOHYDRATES FOR HYPOGLYCEMIA PO PRN (17:11)
[2019-06-02] MEDS: VENLAFAXINE HCL 37.5 MG TAB PO SCH (20:30)
[2019-06-02] MEDS: FLUDROCORTISONE ACETATE 0.1 MG TAB PO SCH (20:30)
[2019-06-02] MEDS: TAMSULOSIN HCL 0.4 MG CAP PO SCH (20:30)
[2019-06-02] MEDS: DOCUSATE SODIUM/SENNA 50/8.6MG TAB PO SCH (20:32)
[2019-06-02] MEDS: METOPROLOL SUCC 25MG EXT REL TAB PO SCH (20:35)
[2019-06-02] MEDS: TRAMADOL HCL 50 MG TABLET PO PRN (23:44)
[2019-06-03] MEDS: POLYETHYLENE (MIRALAX) 17 GM PACK PO SCH (00:41)
[2019-06-03] MEDS: OXYCODONE HCL IR 5 MG TAB (IMMEDIATE RELEASE) PO PRN ×3 (03:35→18:08)
[2019-06-03 05:55] LABS: Albumin Level 2.8 gm/dl (3.4-5.0); Bilirubin Direct 0.1 mg/dl (0-0.2); Bilirubin,Total 0.5 mg/dl (0.2-1); Total Protein 5.7 gm/dl (6.4-8.2)
--- NOTE | 2019-06-03 08:30 | Orthopedic Progress Note ---
Date of Service June 03, 2019 Assessment & Plan (1) Spinal stenosis, lumbar region with neurogenic claudication: Will maintain MARIAH drain. DVT prophylaxis is in the form of teds and SCDs. Continue with physical therapy today. Continue with pain control. Anticipate discharge home tomorrow. Supervising Physician Co-Signing Physician Notes Dr. Dewayne Hewitt Subjective Patient is postoperative day 4 multilevel lumbar decompression fusion. He has reports of back pain. Leg pain markedly improved. MARIAH drain output last shift was 40 cc. He has had a bowel movement last night. Patient's is in the room with him and reports she feels that she he is not ready for discharge yet. Review of Systems Review of Systems: All systems reviewed & are unremarkable except as noted in HPI & below Physical Exam Physical Exam: Lying in bed. He dozes off but is easily arousable and alert and oriented x3. Lower extremities neurovascular intact. Calves are soft nontender bilateral lower extremities. Lumbar dressing is clean dry and intact. Results & Data Vital Signs (Past 12 Hours) Vital Signs Temp Pulse Pulse Resp BP Pulse Ox 06/03/19 06:58 36.8 C 107 H 17 127/73 94 06/02/19 23:38 36.6 C 113 H 18 130/80 96 06/02/19 20:34 106 H 156/84 H 97
[2019-06-03] MEDS: TACROLIMUS 1 MG CAP PO SCH ×2 (08:41→20:16)
[2019-06-03] MEDS: CALCITRIOL 0.25 MCG CAPSULE PO SCH (08:42)
[2019-06-03] MEDS: LACTOBACILLUS ACIDOPHILUS (FLORANEX) TAB PO SCH (08:43)
[2019-06-03] MEDS: predniSONE 5 MG TAB PO SCH (08:43)
[2019-06-03] MEDS: ASPIRIN 81 MG ECTAB PO SCH (08:44)
[2019-06-03] MEDS: METOPROLOL SUCC 50MG EXT REL TAB PO SCH (08:44)
[2019-06-03] MEDS: URSODIOL 300 MG CAP PO SCH ×2 (08:45→20:15)
[2019-06-03] MEDS: CALCIUM 600MG + VIT D 400 IU TAB PO SCH ×2 (08:45→20:15)
[2019-06-03] MEDS: INSULIN ASPART 100 UNITS/ML 3 ML PEN SC SCH ×4 (09:19→21:20)
[2019-06-03] MEDS: INSULIN GLARGINE SOLOSTAR 100 UNITS/ML 3 ML PEN SC SCH (09:19)
[2019-06-03] MEDS: TRAMADOL HCL 50 MG TABLET PO PRN (11:43)
[2019-06-03] MEDS: TAMSULOSIN HCL 0.4 MG CAP PO SCH (20:16)
[2019-06-03] MEDS: FLUDROCORTISONE ACETATE 0.1 MG TAB PO SCH (20:16)
[2019-06-03] MEDS: VENLAFAXINE HCL 37.5 MG TAB PO SCH (20:16)
[2019-06-03] MEDS: DOCUSATE SODIUM/SENNA 50/8.6MG TAB PO SCH (20:17)
[2019-06-03] MEDS: METOPROLOL SUCC 25MG EXT REL TAB PO SCH (20:33)
[2019-06-04] MEDS: ACETAMINOPHEN 1,000 MG/100 ML VIAL IV PRN ×2 (01:35→10:02)
[2019-06-04 05:47] LABS: Hematocrit (blood only) 24.7 % (42-52); Hemoglobin 8.6 g/dL (14.0-18.0); Mean Corpuscular Hgb Conc 34.8 g/dL (32-36); Mean Corpuscular Volume 88.2 fL (80-100); Mean Platelet Volume 9.7 fL (7.4-10.4); Platelet Count 119 K/uL (130-400); RDW Coefficient of Variation 14.1 % (11.5-14.5); RDW Standard Deviation 45.6 fL (36.4-46.3); White Blood Count 7.55 K/uL (4.8-10.8)
[2019-06-04 06:21] LABS: BUN Creatinine Ratio 22.2 (10-20); Calcium 8.4 mg/dl (8.5-10.1); Creatinine Clr Calc Pharmacy 28.2 ml/min; Est GFR (African American) 30.4; Est GFR (Non-African American) 26.2; Potassium 4.4 mmol/L (3.5-5.1)
[2019-06-04] MEDS: OXYCODONE HCL IR 5 MG TAB (IMMEDIATE RELEASE) PO PRN ×2 (08:07→14:11)
[2019-06-04] MEDS: METOPROLOL SUCC 50MG EXT REL TAB PO SCH (08:11)
[2019-06-04] MEDS: ASPIRIN 81 MG ECTAB PO SCH (08:11)
[2019-06-04] MEDS: CALCIUM 600MG + VIT D 400 IU TAB PO SCH (08:12)
[2019-06-04] MEDS: LACTOBACILLUS ACIDOPHILUS (FLORANEX) TAB PO SCH (08:12)
[2019-06-04] MEDS: predniSONE 5 MG TAB PO SCH (08:12)
[2019-06-04] MEDS: CALCITRIOL 0.25 MCG CAPSULE PO SCH (08:12)
[2019-06-04] MEDS: URSODIOL 300 MG CAP PO SCH (08:12)
[2019-06-04] MEDS: TACROLIMUS 1 MG CAP PO SCH (08:13)
[2019-06-04] MEDS: INSULIN GLARGINE SOLOSTAR 100 UNITS/ML 3 ML PEN SC SCH (08:15)
[2019-06-04] MEDS: INSULIN ASPART 100 UNITS/ML 3 ML PEN SC SCH ×2 (08:18→12:21)
--- NOTE | 2019-06-04 12:54 | Discharge Summary ---
Date of Service June 04, 2019 Admission HPI Per Admitting Provider Since with chronic persistent back and bilateral leg pain is here for surgical intervention. Principal Diagnosis Lumbar spinal stenosis with neurogenic claudication Discharge Data Allergies Allergy/AdvReac Type Severity Reaction Status Date / Time aspirin AdvReac Unknown high doses Verified 05/31/19 11:41 contrindicated d/t hx liver transplant ibuprofen AdvReac Unknown not to Verified 05/31/19 11:41 take due to transplant Consultations 05/31/19 17:33 Consult Case Management - Discharge Planning Routine Consult Hospitalist Routine Procedures Performed Operation Date: 05/31/19 12:45 Actual Procedures p L2-S1 Decompression and Fusion with use of Infuse, use of osteoamp; with Spinal Cord Monitoring(Not Applicable) - Dewayne Hewitt DO s L3-L4 Hardware Removal(Not Applicable) - Dewayne Hewitt DO Ordered Studies 05/31/19 12:45 FL fluoroscopy <1hr Routine FL lumbar spine 2-3V Routine Hospital Course (1) Spinal stenosis, lumbar region with neurogenic claudication: Patient underwent multilevel lumbar decompression fusion tolerated as well as taken to orthopedic for postoperative. Postop day 1 he is up and ambulating progressed to postop day #2 and 3 MARIAH drain decreasing appropriately. Requiring significant assistance with physical therapy. Subsequently was discharged to rehab. Discharge orders instructions from the chart for further review. Total Time Total Time Spent Total Time Spent (In Minutes): 20 minutes Discharge Plan Discharge Items Patient Disposition: Transfer Inpatient Rehab Fac Reason For Visit: LUMBAR SPINAL STENOSIS W/OUT NEUROGENIC CLAUDICATI Discharge Diagnosis: Lumbar spinal stenosis with neurogenic claudication Discharge Goals: Improve function Activity: Per 'Additional Instructions' section Non-emergency contact: Primary Care Provider Call non-emergency contact if: you have any medication questions Follow-up/Referrals: Cesilia Workman MD [Primary Care Provider] - Diet: Regular Addtl Provider Instructions: ACTIVITY RECOMMENDATIONS: SELF CARE INSTRUCTIONS AFTER THORACIC/LUMBAR FUSIONS 1. You may walk to your tolerance. It is good exercise for your legs and back. Expect some back and intermittent leg aches and pains. 2. You may perform "counter-top" level activities (make a sandwich, darius with a project, etc.). 3. No bending or lifting of more than 10 pounds or back twisting of any nature (roll like a log when turning in bed). 4. You may ride in a car for 20-30 minutes at a time. No driving until after your first visit with your doctor. 5. Frequent changes of position and restricting sitting to 30 minutes at a time will help limit the amount of back spasms and stiffness you may experience. 6. You may discontinue the use of ambulatory aids (cane, crutches, etc.) once your strength and confidence allow. 7. You may teacher instrumental the shower and let water strike your incision when you arrive home at least once daily. Do not take a tub bath, sit in a hot tub or go into a swimming pool until after your first recheck in the office. SPECIAL CARE INSTRUCTIONS: VERY IMPORTANT TO READ AND REVIEW A. Your surgical incision has been closed with a cosmetic suture under the skin that will dissolve in about 6 weeks. In 14 days, you can use a pair of clean scissors and cut the suture that is left outside of the skin at the ends of your incision. 1. The small skin tapes can be removed 7 days after surgery if they have not fallen off by that point. 2. You may keep the wound open to air as much as possible to promote healing after post-op day number 5 unless told otherwise by your doctor. 3. If you think the wound looks like it is becoming infected (redness or worsening drainage) and/or you are experiencing fever, chill or worsening back pain and muscle spasms, contact the office so that we may evaluate you as soon as possible. B. Complications are uncommon, but please contact us if you have any signs or symptoms of: 1. wound infection (fever higher than 102.5 degrees F, redness, separation of wound, drainage, or increasing pain from the incision) 2. blood clots in legs (pain, swelling, redness and warmth in legs) 3. urinary tract infection (fever higher than 102.5 degrees F, burning upon urination or increased frequency of urination) 4. nerve problems (inability to walk on your toes or heels, numbness, loss of bowel or bladder control) 5. any other symptoms that concern you C. Please call the office at if you have any concerns or questions about your operation or recovery. D. No smoking! Smoking drastically decreases the chance of a solid fusion. E. Do not take any anti-inflammatory medications (Indocin, Advil, Motrin, Aspirin, Naprosyn, etc.) as these may inhibit the chance of a solid fusion. Tylenol is okay to take for pain. MANAGING PAIN AFTER SPINAL SURGERY 1. Narcotic medication is intended for short-term use and will be provided for surgical pain. Surgical pain usually lasts for a period of 4-6 weeks. Narcotic medication includes Percocet, Vicodin, Darvocet, Tylenol #3 or Lortab. 2. Longer-term pain is more appropriately treated with non-narcotic medication such as Tylenol ES. 3. Muscle spasm is not appropriately treated with narcotics. Muscle relaxers such as Soma, Flexeril or Skelaxin can be used along with Tylenol ES. 4. Remember that we all live with some "aches and pains". This is not unusual or uncommon after an injury or as we get older. a. Back pain is expected and may include muscle spasms for 4 to 6 weeks after surgery. The pain should gradually improve. If the pain worsens for no apparent reason, please contact the office. b. Intermittent leg pain may also be experienced and should not be concerned about unless it worsens for no apparent reason. If so, please contact the office. 5. We will provide appropriate medication within the normal guidelines of their prescribed use. We will also be very cautious and aware of potential abuse and extended duration of patients' medication needs. a. Pain medications are for your comfort and to assist with sleep and rest so that the tissue can heal. They are not provided in order to return to normal activity and should not be used through the day. To do so or worsening pain at night can result from ongoing tissue damage and development of tolerance to the prescribed medicine. 6. Please allow 2-3 days to process refills. Prescriptions will not be mailed but must be picked up at the office. FOLLOW UP VISIT: Keep your scheduled follow-up appointment. Any questions, please call the office at . Prescriptions: New tramadol 50 mg Tablet 50 mg PO Q4H PRN (Reason: Pain, Moderate) Qty: 30 RF: 0 oxycodone 5 mg Tablet 5 mg PO Q4H PRN (Reason: Pain, Severe) Qty: 30 RF: 0 Continued oxycodone-acetaminophen 5-325 mg tablet 1 tab PO Q12H PRN (Reason: pain) Qty: 60 RF: 0 metoprolol succinate 25 mg Tablet Extended Release 24 Hr 25 mg PO QAM RF: 0 metoprolol succinate 100 mg Tablet Extended Release 24 Hr 100 mg PO QAM RF: 0 prednisone 5 mg Tablet 5 mg PO QAM RF: 0 aspirin [Aspir-Low] 81 mg Tablet,Delayed Release (Dr/Ec) 81 mg PO QAM RF: 0 calcium carbonate [Calcium 600] 600 mg calcium (1,500 mg) Tablet 600 mg PO BID RF: 0 tamsulosin [Flomax] 0.4 mg Capsule 0.4 mg PO QPM RF: 0 meclizine 25 mg Tablet 25 mg PO DAILY PRN (Reason: VERTIGO) RF: 0 venlafaxine 37.5 mg Tablet 37.5 mg PO QPM RF: 0 calcitriol 0.5 mcg Capsule 0.5 mcg PO QAM RF: 0 ursodiol 300 mg Capsule 300 mg PO BID RF: 0 fludrocortisone 0.1 mg Tablet 0.1 mg PO QPM RF: 0 tacrolimus [Prograf] 1 mg Capsule 3 mg PO QAM RF: 0 Novolog Flexpen U-100 Insulin 100 unit/mL Insulin Pen 1 dose SUBCUT UD RF: 0 Prolia 60 mg/mL Syringe 1 dose SUBCUT UD RF: 0 Probiotic 3 billion cell Capsule 1 cap PO QAM RF: 0 Tresiba U-100 Insulin 100 unit/mL Solution 16 unit SUBCUT QAM RF: 0 tacrolimus [Prograf] 1 mg Capsule 2 mg PO QPM RF: 0 Stand-Alone Forms: [facility] Discharge Orders: Discharge Order (Routine); Ordered 06/04/19 Ordered By: Dewayne Hewitt Skilled Items Patient informed of condition?: Yes DNR: No Discharge Level of Care: Acute rehab Communicable Disease: No Discharge Prognosis: Stable Admission Data Admit Date/Time: 05/31/19 15:39 Attending Provider: Dewayne Hewitt Admit Provider: Dewayne Hewitt Primary Care Provider: Cesilia Workman Other Providers: Carl Viramontes Service: Surgical Services Other Interventions: Discharge Summary Assessment (RN) Last Done: 06/04/19 10:14
[2019-06-04] MEDS: TRAMADOL HCL 50 MG TABLET PO PRN (15:21)
== END 2019-06-04 17:35 | DRG 454 ==
LOC: ASU 10:54 → 3E 15:39

== ENCOUNTER 2020-08-15 14:21 | Inpatient (IN) ==
--- NOTE | 2020-08-15 14:54 | Emergency Department Note ---
Impression & Plan Generalized weakness, Bilateral edema of lower extremity, SOB (shortness of breath) ED Provider Note INFORMANT: Patient ED PROVIDER(S): Bob Siu MD CHIEF COMPLAINT: Abnormal testing PLAN: Disposition: Admitted Condition: Good MEDICAL DECISION MAKING: Patient presented due to direction from his primary office. His Holter revealed atrial fibrillation. The patient had an ECG performed. He was in a normal sinus rhythm. His vital signs were stable. The patient notes significant decline in his states that he is progressively getting worse with regards to his energy, breathing, and his lower extremity edema. Blood work was obtained. Chest x-ray performed. His ECG did not show any ischemic change. His blood work revealed a mild anemia on CBC. His chemistry panel revealed significant chronic kidney disease. The patient's BNP is markedly elevated concerning for CHF. Troponin negative. The patient had no signs of infection on urinalysis. I consulted with his head host/hostess, Dr. Madrigal. We discussed his case. It was felt that a trial of IV diuresis in the hospital may be beneficial to the patient given his lack of response to oral diuretic. Patient and were in agreement. Consultation was made with the hospitalist service. The patient was admitted for further management. Triage Nursing notes reviewed and agree them. Additional history obtained from patient's Prior medical records reviewed Vital Signs: reviewed and remarkable for no significant abnormalities Differential diagnosis: Cardiac sources infection, dehydration, metabolic abnormality, hypo/hyperglycemia, electrolyte disturbance, anemia, hypoxia, intracerebral event, toxicologic, neurologic, as well as other pathologies. Diagnostics interpreted by me: ECG: Twelve-lead ECG reveals normal sinus rhythm at 61 bpm. There is poor R progression. Lateral T wave inversions. No ST elevation. No PACs or PVCs. Cardiac Monitoring: Cardiac monitoring ordered by me: The patient was placed on continuous cardiac monitoring and observed. It revealed a normal sinus rhythm at 65 beats per minute without ectopy or evidence of dysrhythmia. Imaging studies: Chest x-ray shows mild cardiomegaly. Mild CHF. No focal infiltrates or pneumothorax. No free air. [facility] cardiology HPI: The patient is a 80 year old male who presents to the Emergency Room with complaints of an abnormal Holter monitor. Possible A. fib seen on his Holter monitor today by the [facility]. He was directed to come to the emergency department. Patient notes over the last 6 or 7 months has had progressive fatigue, generalized weakness, shortness of breath, and lower extremity edema. The also notes that he has had some hallucinations from time to time. He has had an MRI for this did not show any acute problems. The patient also notes some difficulty urinating that has been going on for some time. He has been seen by urology for this. Patient also follows with nephrology as he has chronic kidney disease. The patient was notified about. The patient has found no relieving factors. Current pain is rated as 0/10. Pt denies LOC, headache, fevers, chills, diaphoresis, visual changes, neck pain, chest pain, nausea, vomiting, abdominal pain, back pain, melena, hematochezia, numbness, lymphadenopathy, rash, or other complaints. ROS: See above HPI for pertinent positives & negatives. A total of 10 systems reviewed and were otherwise negative. PAST MEDICAL HISTORY:See Below, liver transplant, diabetes, chronic kidney disease, immunocompromise PAST SURGICAL HISTORY:See Below, liver transplantation FAMILY HISTORY:See Below SOCIAL HISTORY:See Below, HOME MEDICATIONS:See Below ALLERGIES:See Below VITALS:See Below PHYSICAL EXAMINATION: GENERAL: Awake, alert, [id number], in no distress HENT: Normocephalic, atraumatic. Oropharynx unremarkable. EYES: Normal conjunctiva. Sclera non-icteric. NECK: Inspection normal. Non-tender. Supple. No nuchal rigidity. FROM. No masses. RESPIRATORY: Clear to auscultation. No wheezes. No rales. Normal respiratory effort. CARDIAC: Borderline bradycardic rate. Normal rhythm. No murmurs. No rubs. Extremities warm and well perfused. Pulses equal. No JVD. GI: Soft, non-distended. No tenderness to palpation. No rebound or guarding. No masses. RECTAL: Deferred. MUSCULOSKELETAL: Atraumatic. Chest examination reveals no tenderness. The back is symmetrical on inspection without obvious abnormality. There is no CVA t enderness to palpation. No joint edema. LOWER EXTREMITIES: Calves are equal size bilaterally and non-tender. 2+ edema. No discoloration. NEURO: Normal sensorium. No focal sensory or motor deficits noted. Speech clear SKIN: No rash or jaundice noted. Bob Siu MD Past Med/Surg History Medical History Abscess of skin of abdomen BPH (benign prostatic hyperplasia) Cancer SKIN CANCER-BASAL CELL/SQUAMOUS CKD (chronic kidney disease) Diabetes mellitus Hypertension Pancreatitis HX S/P liver transplant Sclerosing cholangitis S/P liver transplant 1994 Stage III chronic kidney disease Surgical History Fusion of spine LUMBAR H/O exploratory laparotomy FOR HEMATOMA/DIVERTIULITIS?-02/23/19 [facility] History of appendectomy History of cholecystectomy History of colonoscopy History of esophagogastroduodenoscopy (EGD) History of herniorrhaphy X 2 History of liver biopsy History of oral surgery Posts implanted in mandible for bottom denture History of tooth extraction [place] Family History Father Family history of diabetes mellitus Myocardial infarction Heart failure Mother Dementia Denies family history of Ovarian cancer Prostate cancer Breast cancer Colorectal cancer Social History Smoking Status: Former smoker Tobacco Type: Cigarettes Cigarettes Per Day: QUIT 1971; Second Hand Exposure: No; Do You Dip or Chew Tobacco: No; Tobacco Cessation Education Requested by Patient: No Hx Alcohol Use: No Hx Substance Use: No Preferred Language: Yoruba Communication Ability: hearing Felt Hooker Required: No Beliefs That Will Affect Care: None marital status: Current Living Situation: Spouse current occupational status: retired Other Information That Helps Us Care for You: No Feels Safe at Home: Yes Safety Concerns: Feels Safe At This Time Dental Care, Regularly: Yes Seatbelt Use: always Sunscreen Use: Yes Assistive Devices: Glasses Allergies Allergies Allergy/AdvReac Type Severity Reaction Status Date / Time aspirin AdvReac Unknown high doses Verified 08/15/20 14:52 contrindicated d/t hx liver transplant ibuprofen AdvReac Unknown not to Verified 08/15/20 14:52 take due to transplant Home Meds Home Medications Medication Instructions Recorded Confirmed calcium carbonate [Calcium 600] 600 mg PO BID 01/09/19 08/15/20 meclizine 25 mg PO DAILY PRN 01/09/19 08/15/20 prednisone 5 mg PO QAM 01/09/19 08/15/20 tacrolimus [Prograf] 3 mg PO QAM 01/09/19 08/15/20 ursodiol 300 mg PO BID 01/09/19 08/15/20 tacrolimus [Prograf] 2 mg PO QPM 02/26/19 08/15/20 acetaminophen 500 mg capsule 500 mg PO Q4H PRN 06/19/19 08/15/20 docusate sodium 100 mg capsule 100 mg PO QAM 06/19/19 08/15/20 L. gasseri-B. bifidum-B longum 1 cap PO QAM 07/10/19 08/15/20 [[facility]] lidocaine 5 % topical patch 1 patch TOP DAILY PRN 08/10/19 08/15/20 polyethylene glycol 3350 17 gram 17 gm PO DAILY PRN 08/10/19 08/15/20 oral powder packet aspirin 81 mg PO QAM 03/17/20 08/15/20 fludrocortisone 0.1 mg PO HS 03/17/20 08/15/20 insulin degludec 100 unit/mL (3 14 units SUBCUT QAM ml 04/28/20 08/15/20 mL) subcutaneous pen Previous Rx's Medication Instructions Recorded calcitriol 0.5 mcg capsule 0.5 mcg PO QAM #30 cap 09/25/19 pen needle, diabetic 32 gauge x See Rx Instructions .ROUTE 09/28/19" .COMPLEX #450 unspecified hydrocortisone 2.5 % topical cream 1 appln NV DAILY PRN #28.35 gm 03/18/20 with perineal applicator furosemide 20 mg tablet 20 mg PO QAM PRN #10 tab 04/28/20 metoprolol succinate 50 mg 100 mg PO BID #120 tab 05/20/20 tablet,extended release 24 hr venlafaxine 37.5 mg 37.5 mg PO DAILY@1700 #30 cap 07/10/20 capsule,extended release 24 hr insulin aspart U-100 100 unit/mL 30 unit SUBCUT DAILY #15 ml 07/16/20 (3 mL) subcutaneous pen Prolia 60 mg/mL subcutaneous 60 mg SUBCUT Q6MO #1 ml NS 07/22/20 syringe amlodipine 5 mg tablet 5 mg PO DAILY #30 tab 07/22/20 magnesium oxide 400 mg PO DAILY #90 tab 07/23/20 donepezil 5 mg tablet 5 mg PO HS #30 tab 08/12/20 tamsulosin 0.4 mg capsule 0.4 mg PO DAILY #90 cap 08/12/20 triamcinolone acetonide 0.1 % 1 applic TOPICAL BID #30 g 08/12/20 topical cream Results & Data (ED) Vital Signs Vital Signs - 24 hr 08/15/20 14:23 Temperature 36.6 C Temperature Source Oral Pulse Rate 62 Respiratory Rate 20 Respiratory Depth Normal Blood Pressure 183/81 H Blood Pressure Mean 115 Pulse Oximetry 97 Oxygen Delivery Method Room Air Sepsis Recent Fever Within 48 Hours No Sepsis New/Unexplained Change in Mental Status No Sepsis Action Taken by Nursing No Action Required Laboratory Data Result diagrams: 08/16/20 06:36 08/16/20 06:36 Lab Results 08/15/20 08/15/20 08/15/20 Range/Units 15:35 15:35 16:45 WBC 6.63 (4.8-10.8) K/uL RBC 3.57 L (4.7-6.1) M/uL Hgb 10.5 L (14.0-18.0) g/dL Hct 32.3 L (42-52) % MCV 90.5 (80-100) fL MCH 29.4 (25-34) pg MCHC 32.5 (32-36) g/dL RDW Std Deviation 48.7 H (36.4-46.3) fL RDW Coeff of Penelope 14.5 (11.5-14.5) % Plt Count 122 L (130-400) K/uL MPV 10.2 (7.4-10.4) fL Immature Gran % (Auto) 0.3 % Neut % (Auto) 71.9 % Lymph % (Auto) 21.0 % Harper % (Auto) 5.4 % Eos % (Auto) 1.2 % Baso % (Auto) 0.2 % Neut # (Auto) 4.77 (1.4-6.5) K/uL Lymph # (Auto) 1.39 (1.2-3.4) K/uL Harper # (Auto) 0.36 (0.11-0.59) K/uL Eos # (Auto) 0.08 (0-0.5) K/uL Baso # (Auto) 0.01 (0-0.2) K/uL Immature Gran # (Auto) 0.02 (0.00-0.02) K/uL Sodium 137 (136-145) mmol/L Potassium 4.2 (3.5-5.1) mmol/L Chloride 99 (98-107) mmol/L Carbon Dioxide 33 H (21-32) mmol/L Anion Gap 5.0 (3-11) BUN 59 H (7-18) mg/dl Creatinine 4.18 H (0.6-1.4) mg/dl Est Cr Clr Drug Dosing 15.0 ml/min Est GFR ( Amer) 14.6 Est GFR (Non-Af Amer) 12.6 BUN/Creatinine Ratio 14.1 (10-20) Glucose 114 H (70-99) mg/dl Calcium 9.3 (8.5-10.1) mg/dl Magnesium 1.8 (1.8-2.4) mg/dl Total Bilirubin 0.4 (0.2-1) mg/dl AST 17 (15-37) U/L ALT 24 (12-78) U/L Alkaline Phosphatase 82 (45-117) U/L Troponin I < 0.015 (0-0.045) ng/ml NT-Pro-B Natriuret Pep 13252 H (0-1800) pg/ml Total Protein 5.9 L (6.4-8.2) gm/dl Albumin 2.8 L (3.4-5.0) gm/dl Globulin 3.1 (2.5-4.0) gm/dl Albumin/Globulin Ratio 0.9 (0.9-2) TSH 4.270 (0.300-4.500) uIu/ml Urine Color Yellow Urine Appearance Clear (Clear) Urine pH 7.5 (4.5-7.5) Ur Specific [place] 1.013 (1.000-1.030) Urine Protein 3+ H (Negative) Urine Glucose (UA) Negative (Negative) Urine Ketones Negative (Negative) Urine Blood Negative (Negative) Urine Nitrite Negative (Negative) Urine Bilirubin Negative (Negative) Urine Urobilinogen Negative (Negative) Ur Leukocyte Esterase Negative (Negative) Urine WBC (Auto) 1-5 (0-5) /hpf Urine RBC (Auto) 0-4 (0-4) /hpf U Hyaline Cast (Auto) 1-5 (0-5) /lpf U Epithel Cells (Auto) 5-10 H (0-5) /lpf Urine Bacteria (Auto) Negative (Negative) Administered Medications Amlodipine Besylate (Amlodipine Besylate 5 Mg Tab) 5 mg PO PM MIRIAM Stop: 09/14/20 22:07 Last Admin: 08/15/20 22:47 Dose: 5 mg Documented by: [id number] Aspirin (Aspirin 81 Mg Ectab) 81 mg PO QAM MIRIAM Stop: 09/15/20 08:59 Last Admin: 08/16/20 08:23 Dose: 81 mg Documented by: [id number] Calcitriol (Calcitriol 0.25 Mcg Capsule) [facility] Stop: 09/15/20 08:59 Last Admin: 08/16/20 08:23 Dose: 0.5 mcg Documented by: [id number] Donepezil HCl (Donepezil Hcl 5 Mg Tab) 5 mg PO HS [facility] Stop: 09/14/20 22:07 Last Admin: 08/15/20 22:47 Dose: 5 mg Documented by: [id number] Heparin Sodium (Porcine) (Heparin Sod 5,000 Unit/0.5 Ml Vial) 5,000 units SQ Q12 MIRIAM Stop: 09/14/20 22:07 Last Admin: 08/16/20 08:20 Dose: 5,000 units Documented by: [id number] Cosigned by: [id number] Admin: 08/15/20 22:48 Dose: 5,000 units Documented by: [id number] Cosigned by: [id number] Insulin Aspart (Insulin Aspart 100 Units/Ml 3 Ml Pen) 0 units SC ACHS MIRIAM Stop: 09/14/20 22:07 Last Admin: 08/16/20 17:10 Dose: Not Given Documented by: [id number] Cosigned by: [id number] Admin: 08/16/20 12:53 Dose: 4 units Documented by: [id number] Cosigned by: [id number] Admin: 08/16/20 08:18 Dose: 4 units Documented by: [id number] Cosigned by: [id number] Admin: 08/15/20 22:49 Dose: Not Given Documented by: [id number] Cosigned by: [id number] Insulin Glargine (Insulin Glargine Solostar 100 Units/Ml 3 Ml Pen) 14 units SC BID MIRIAM Stop: 09/14/20 22:07 Last Admin: 08/16/20 08:21 Dose: 14 units Documented by: [id number] Cosigned by: [id number] Admin: 08/15/20 22:48 Dose: Not Given Documented by: [id number] Magnesium Oxide (Magnesium Oxide 400 Mg Tab) 400 mg PO DAILY MIRIAM Stop: 09/15/20 08:59 Last Admin: 08/16/20 08:23 Dose: 400 mg Documented by: [id number] Metoprolol Succinate (Metoprolol Succ 50mg Ext Rel Tab) 100 mg PO BID MIRIAM Stop: 09/15/20 08:59 Last Admin: 08/16/20 09:11 Dose: 100 mg Documented by: [id number] Admin: 08/15/20 22:45 Dose: 100 mg Documented by: [id number] Miscellaneous (Carbohydrates For Hypoglycemia ) 15 - 30 gm PO UD PRN PRN Reason: Hypoglycemia Protocol Stop: 09/14/20 22:07 Last Admin: 08/16/20 16:42 Dose: 15 gm Documented by: [id number] Prednisone (Prednisone 5 Mg Tab) 5 mg PO QAM MIRIAM Stop: 09/15/20 08:59 Last Admin: 08/16/20 08:22 Dose: 5 mg Documented by: [id number] Tacrolimus (Tacrolimus 1 Mg Cap) 3 mg PO QAM MIRIAM Stop: 09/15/20 08:59 Last Admin: 08/16/20 08:23 Dose: 3 mg Documented by: [id number] Tacrolimus (Tacrolimus 1 Mg Cap) 2 mg PO QPM MIRIAM Stop: 09/14/20 22:07 Last Admin: 08/15/20 22:47 Dose: 2 mg Documented by: [id number] Ursodiol (Ursodiol 300 Mg Cap) 300 mg PO BID MIRIAM Stop: 09/14/20 22:07 Last Admin: 08/16/20 08:24 Dose: 300 mg Documented by: [id number] Admin: 08/15/20 22:48 Dose: 300 mg Documented by: [id number] Venlafaxine HCl (Venlafaxine Hcl Xr 37.5 Mg Capxr) 37.5 mg PO DAILY@1700 MIRIAM Stop: 09/15/20 16:59 Last Admin: 08/16/20 17:30 Dose: 37.5 mg Documented by: [id number] Discontinued Medications Bumetanide 1 mg/ Syringe 4 mls @ 4 mls/min IV NOW ONE Stop: 08/15/20 18:08 Last Admin: 08/15/20 18:35 Dose: 4 mls/min Documented by: [id number] Bumetanide 1 mg/ Syringe 4 mls @ 4 mls/min IV NOW ONE Stop: 08/16/20 14:01 Last Admin: 08/16/20 14:27 Dose: 4 mls/min Documented by: [id number] Metoprolol Succinate (Metoprolol Succ 50mg Ext Rel Tab) 100 mg PO 5 ONE Stop: 08/15/20 21:16 Last Admin: 08/15/20 21:12 Dose: 100 mg Documented by: [id number] Discharge Plan Visit Data Chief Complaint: Abnormal Labs/Diagnostic Testing Stated Complaint: AFIB SENT FROM DR ED Provider: Bob Siu Discharge Problem: Generalized weakness, Bilateral edema of lower extremity, SOB (shortness of breath) Patient Disposition: Admitted As Inpatient Discharge Instructions Interventions: ED Discharge Assessment Last Done: 08/15/20 21:51
[2020-08-15 15:54] LABS: Basophils # (auto) 0.01 K/uL (0-0.2); Basophils % (auto) 0.2 %; Eosinophils # (auto) 0.08 K/uL (0-0.5); Eosinophils % (auto) 1.2 %; Hematocrit (blood only) 32.3 % (42-52); Hemoglobin 10.5 g/dL (14.0-18.0); Immature Granulocytes # (auto) 0.02 K/uL (0.00-0.02); Immature Granulocytes % (auto) 0.3 %; Lymphocytes # (auto) 1.39 K/uL (1.2-3.4); Mean Corpuscular Hemoglobin 29.4 pg (25-34); Mean Corpuscular Hgb Conc 32.5 g/dL (32-36); Mean Corpuscular Volume 90.5 fL (80-100); Mean Platelet Volume 10.2 fL (7.4-10.4); Monocytes # (auto) 0.36 K/uL (0.11-0.59); Monocytes % (auto) 5.4 %; Neutrophils # (auto) 4.77 K/uL (1.4-6.5); Neutrophils % (auto) 71.9 %; Platelet Count 122 K/uL (130-400); RDW Coefficient of Variation 14.5 % (11.5-14.5); RDW Standard Deviation 48.7 fL (36.4-46.3); Red Blood Count 3.57 M/uL (4.7-6.1); White Blood Count 6.63 K/uL (4.8-10.8)
[2020-08-15 16:14] LABS: Alanine Aminotransferase 24 U/L (12-78); Albumin Level 2.8 gm/dl (3.4-5.0); Aspartate Aminotransferase 17 U/L (15-37); BUN Creatinine Ratio 14.1 (10-20); Blood Urea Nitrogen 59 mg/dl (7-18); Calcium 9.3 mg/dl (8.5-10.1); Carbon Dioxide 33 mmol/L (21-32); Chloride 99 mmol/L (98-107); Est GFR (African American) 14.6; Est GFR (Non-African American) 12.6; Glucose 114 mg/dl (70-99); Magnesium 1.8 mg/dl (1.8-2.4); Potassium 4.2 mmol/L (3.5-5.1); Sodium 137 mmol/L (136-145)
[2020-08-15 16:25] LABS: Albumin Globulin Ratio 0.9 (0.9-2); Alkaline Phosphatase 82 U/L (45-117); Bilirubin,Total 0.4 mg/dl (0.2-1); Globulin 3.1 gm/dl (2.5-4.0); NT Pro B Type Natriuretic Pept 13749 pg/ml (0-1800); Total Protein 5.9 gm/dl (6.4-8.2); Troponin I < 0.015 ng/ml (0-0.045)
--- NOTE | 2020-08-15 16:34 | Electrocardiogram Report ---
Test Reason : Blood Pressure : / mmHG Vent. Rate : 061 BPM Atrial Rate : 061 BPM P-R Int : 158 ms QRS Dur : 092 ms QT Int : 418 ms P-R-T Axes : 067 -05 115 degrees QTc Int : 420 ms Normal sinus rhythm T wave abnormality, consider lateral ischemia Abnormal ECG When compared with ECG of 25-JUL-2020 17:33, Nonspecific T wave abnormality no longer evident in Inferior leads T wave inversion no longer evident in Anterior leads Inverted T waves have replaced nonspecific T wave abnormality in Lateral leads Confirmed by Jared Ponce ([id number]) on 08/15/2020 4:34:29 PM Referred By: Jhonny Cobos Confirmed By:Ronni Ponce
--- NOTE | 2020-08-15 16:44 | XRay Report ---
XR chest 1V portable CLINICAL HISTORY: Shortness of breath. COMPARISON STUDY: Chest radiograph July 25, 2020. FINDINGS: There is no pneumothorax. Interval development of a small right pleural effusion is noted. Moderate cardiomegaly is unchanged. There is pulmonary vascular congestion with possible mild pulmona ry edema. Mild right basilar opacity is present. IMPRESSION: 1. Pulmonary vascular congestion with suspected mild pulmonary edema. 2. Small right pleural effusion. 3. Mild bibasilar opacities which favor atelectasis although an infectious process could appear simil ar. ACT 112: Negative or not required by law. Electronically signed by: Andrea Ramirez M.D. 08/15/2020 4:43 PM
[2020-08-15 17:02] LABS: Appearance Urine Clear (Clear); Bacteria Urine Automated Negative (Negative); Bilirubin Urine Negative (Negative); Blood Urine Negative (Negative); Color Urine Yellow; Glucose Urine UA Negative (Negative); Ketones Urine Negative (Negative); Leukocyte Esterase Urine Negative (Negative); Nitrite Urine Negative (Negative); Protein Urine 3+ (Negative); RBC Urine Automated 0-4 /hpf (0-4); Specific Gravity Urine 1.013 (1.000-1.030); Urobilinogen Urine Negative (Negative); pH Urine 7.5 (4.5-7.5)
[2020-08-15 17:03] LABS: Sulfosalicylic Acid Urine Positive (Negative)
[2020-08-15] MEDS ORDERED: BUMETANIDE 1 MG in SYRINGE 0 ML IV ONE (18:07)
--- NOTE | 2020-08-15 18:28 | History & Physical Report ---
Date of Service August 15, 2020 Assessment & Plan (1) Generalized weakness: Lawrence is an 80-year-old male with a past medical history of liver transplant due to a sending cholangitis with subsequent development of end-stage renal disease nonoliguric, sleep apnea, aortic valve insufficiency, depression, and diabetes who presents to the hospital with 4 months of progressive shortness of breath, fatigue, and intermittent hallucinations who was prompted to present to the ER after a recent Holter showed evidence of atrial fibrillation. Edema/shortness of breath Multifactorial. Some underlying venous stasis and baseline CKD/ESRD nonoliguric, patient followed by cardiology and may have underlying CHF exacerbated by A. fib Chest x-ray: Pulmonary vascular congestion and edema, right-sided effusion, bibasilar atelectasis BNP: 13 K Creatinine as below, normal ratio Received Bumex 1 mg, follow urine output Nephro consulted, cardiology consulted Diuresis with caution given unclear baseline creatinine and underlying ESRD CHF, acute exacerbation potentially precipitated by pAfib Patient in normal sinus rhythm on admission Recent Holter monitor showed A. fib not on anticoagulation Patient told to avoid aspirin, ibuprofen, and thinners due to his transplant status in the past. [id number] 4+. Recommend anticoagulation prior to discharge. New systolic murmur appreciated, echo pending Troponin normal on admission, clinically without chest pain History of fatigue, confusion, visual hallucinations Patient endorses difficulty sleeping without his BiPAP, intermittent visual hallucinations that he recognizes are not there Recent evaluation including MRI showed no intracranial abnormalities CO2 mildly elevated on admitting blood work, VBG pending BiPAP as below overnight, follow clinically History of unstable potassium Patient with unstable potassium following his liver transplant Avoid any RAAS agents - Continue florinef daily - BMP daily - K wnl on admit Type 2 diabetes mellitus with nephropathy Hold home insulin degludec Insulin glargine SSI weight based. TDD 37.5. Lantus 14u daily. 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 No transaminitis on admission JANES -Pt not doign well on CPAP at home, was under evaluation for ASV/BiPAP - BiPAP 08/11, adjust as needed - VBG pending as above Osteoporosis, history of calcium derangement Followed by endocrinology outpatient DVT prophylaxis: Heparin 5000 twice daily, SCDs Diet: Heart healthy Disposition: Medical surgical with telemetry CODE STATUS: DNR, patient okay with trial of intubation if needed for respiratory status. Discussed with patient and at bedside (2) SOB (shortness of breath): (3) BPH (benign prostatic hyperplasia): (4) Type 2 DM with CKD stage 3 and hypertension: (5) Complex sleep apnea syndrome: (6) Atrial fibrillation: (7) S/P liver transplant: (8) Dyspnea: History of Present Illness Chief Complaint: A. fib, fatigue Primary Care Provider: Esthela Pritchard MD Lawrence is an 80-year-old male with a past medical history of liver transplant due to a sending cholangitis with subsequent development of end-stage renal disease nonoliguric, sleep apnea, aortic valve insufficiency, depression, and diabetes who presents to the hospital with 4 months of progressive shortness of breath, fatigue, and intermittent hallucinations who was prompted to present to the ER after a recent Holter showed evidence of atrial fibrillation. Lawrence is seen at the bedside with his Dhara. They report that he began to clinically worsen 4 months ago in April. He began developing bilateral lower extremity swelling, increased fatigue, difficulty laying down flat when not wearing his BiPAP, and decreased exercise tolerance going from walking around the block or quarter mile to not being able to walk the length of a driveway due to fatigue and shortness of breath. He denies any recent cold-like symptoms, and denies fever, chills, sweats, productive cough, dysuria, chest pain, chest pressure, palpitations. He is followed by cardiology and nephrology, reports that he was put on Lasix 20 mg in April but that this has never made him pee more. He is followed for complex sleep apnea syndrome by Dr. Lima who had been adjusting CPAP versus ASV which the patient reports he is unable to sleep without and recently had been undergoing evaluation for BiPAP. He has had recent hallucinations of girls and bugs on the floor intermittently around sleep, he had a recent brain MRI which did not show any acute intracranial abnormalities.He reports that due to symptoms he had been placed on a Holter monitor. They were called by the Holter monitor company after being on the Holter from August 11- and were told that he had shown some A. fib, and should present to the emergency department for evaluation. Medical history: Reviewed Surgical history: Reviewed Allergies: Reviewed Family history: Noncontributory Social: No tobacco use, no alcohol use. Lives at home with his normally able to ambulate independently. CODE STATUS: Conditional code. No compressions. Willing to have a trial of intubation if needed. Discussed at bedside with patient and his . Allergies Allergy/AdvReac Type Severity Reaction Status Date / Time aspirin AdvReac Unknown high doses Verified 08/15/20 14:52 contrindicated d/t hx liver transplant ibuprofen AdvReac Unknown not to Verified 08/15/20 14:52 take due to transplant Home Medications Home Medications Medication Instructions Recorded Confirmed Type calcium carbonate [Calcium 600] 600 mg PO BID 01/09/19 08/15/20 History meclizine 25 mg PO DAILY PRN 01/09/19 08/15/20 History prednisone 5 mg PO QAM 01/09/19 08/15/20 History tacrolimus [Prograf] 3 mg PO QAM 01/09/19 08/15/20 History ursodiol 300 mg PO BID 01/09/19 08/15/20 History tacrolimus [Prograf] 2 mg PO QPM 02/26/19 08/15/20 History acetaminophen 500 mg capsule 500 mg PO Q4H PRN 06/19/19 08/15/20 History docusate sodium 100 mg capsule 100 mg PO QAM 06/19/19 08/15/20 History L. gasseri-B. bifidum-B longum 1 cap PO QAM 07/10/19 08/15/20 History [[facility]] lidocaine 5 % topical patch 1 patch TOP DAILY PRN 08/10/19 08/15/20 History polyethylene glycol 3350 17 gram 17 gm PO DAILY PRN 08/10/19 08/15/20 History oral powder packet calcitriol 0.5 mcg capsule 0.5 mcg PO QAM #30 cap 09/25/19 08/15/20 Rx pen needle, diabetic 32 gauge x See Rx Instructions .ROUTE 09/28/19 08/15/20 Rx 5/32" .COMPLEX #450 unspecified aspirin 81 mg PO QAM 03/17/20 08/15/20 History fludrocortisone 0.1 mg PO HS 03/17/20 08/15/20 History hydrocortisone 2.5 % topical cream 1 appln [place] DAILY PRN #28.35 gm 03/18/20 08/15/20 Rx with perineal applicator furosemide 20 mg tablet 20 mg PO QAM PRN #10 tab 04/28/20 08/15/20 Rx insulin degludec 100 unit/mL (3 14 units SUBCUT QAM ml 04/28/20 08/15/20 History mL) subcutaneous pen metoprolol succinate 50 mg 100 mg PO BID #120 tab 05/20/20 08/15/20 Rx tablet,extended release 24 hr venlafaxine 37.5 mg 37.5 mg PO DAILY@1700 #30 cap 07/10/20 08/15/20 Rx capsule,extended release 24 hr insulin aspart U-100 100 unit/mL 30 unit SUBCUT DAILY #15 ml 07/16/20 08/15/20 Rx (3 mL) subcutaneous pen Prolia 60 mg/mL subcutaneous 60 mg SUBCUT Q6MO #1 ml NS 07/22/20 08/15/20 Rx syringe amlodipine 5 mg tablet 5 mg PO DAILY #30 tab 07/22/20 08/15/20 Rx magnesium oxide 400 mg PO DAILY #90 tab 07/23/20 08/15/20 Rx donepezil 5 mg tablet 5 mg PO HS #30 tab 08/12/20 08/15/20 Rx tamsulosin 0.4 mg capsule 0.4 mg PO DAILY #90 cap 08/12/20 08/15/20 Rx triamcinolone acetonide 0.1 % 1 applic TOPICAL BID #30 g 08/12/20 08/15/20 Rx topical cream Past Med/Surg History Medical History Abscess of skin of abdomen BPH (benign prostatic hyperplasia) Cancer SKIN CANCER-BASAL CELL/SQUAMOUS CKD (chronic kidney disease) Diabetes mellitus Hypertension Pancreatitis HX S/P liver transplant Sclerosing cholangitis S/P liver transplant 1994 Stage III chronic kidney disease Surgical History Fusion of spine LUMBAR H/O exploratory laparotomy FOR HEMATOMA/DIVERTIULITIS?-02/23/19 [facility] History of appendectomy History of cholecystectomy History of colonoscopy History of esophagogastroduodenoscopy (EGD) History of herniorrhaphy X 2 History of liver biopsy History of oral surgery Posts implanted in mandible for bottom denture History of tooth extraction Transplant LIVER 1995 IN [place] ([facility]) Family History Father Family history of diabetes mellitus Myocardial infarction Heart failure Mother Dementia Denies family history of Ovarian cancer Prostate cancer Breast cancer Colorectal cancer Social History Smoking Status: Former smoker Tobacco Type: Cigarettes Cigarettes Per Day: QUIT 1971; Second Hand Exposure: No; Do You Dip or Chew Tobacco: No; Tobacco Cessation Education Requested by Patient: No Hx Alcohol Use: No Hx Substance Use: No Preferred Language: Samoan Communication Ability: hearing Public Health Assistant Required: No Beliefs That Will Affect Care: None marital status: Current Living Situation: Spouse current occupational status: retired Other Information That Helps Us Care for You: No Feels Safe at Home: Yes Safety Concerns: Feels Safe At This Time Dental Care, Regularly: Yes Seatbelt Use: always Sunscreen Use: Yes Assistive Devices: Glasses and Hearing Aid - Bilateral Review of Systems Review of Systems: All systems reviewed & are unremarkable except as noted in HPI & below Physical Exam Physical Exam: General: A&Ox3. NAD. Cooperative. HEENT: Atraumatic, normocephalic. Pupils equal and responsive to light and accommodation. Pulm: Bibasilar crackles, no rales. Symmetrical chest rise. No increase work of breathing. No respiratory distress. Cardiac: Regular rate and rhythm, systolic murmur present. Radial pulses intact and symmetrical. JVD is present 2 cm above the clavicle with hepatojugular reflex. Abdominal: Nontender, nondistended, soft. BS present. Extremities: Moves all extremities equally, science tutor strength, ankle plantar flexion/dorsiflexion, hip flexion 4+/5 bilateral. Sensation is soft touch intact in fingers and toes and symmetrical without deficit. Pitting edema is present through the ankles and mid calf bilaterally. No calf tenderness, Homans negative. Results & Data Results & Data ([facility]) Vital Signs (Past 12 Hours) Vital Signs Temp Pulse Pulse Pulse Pulse Resp BP 08/15/20 16:53 86 94 H 10/09/20 15:45 60 21 08/15/20 14:23 36.6 C 62 20 183/81 H BP Pulse Ox Pulse Ox Pulse Ox 08/15/20 16:53 96 96 08/15/20 15:45 167/83 H 95 08/15/20 14:23 97 Supervising Physician Co-Signing Physician Notes During my face to face encounter with the patient, I performed a history and physical examination. I reviewed above not and agree with it and discussed plan of care with patient and Dr. Barclay. Patient will be admitted for fluid overload and CKD. Patient has multiple comorbididtes and may benefit from a palliative care consult for goals of care discussion. Resident Activity Tracking Resident Involvement: Resident Care Provided Care Provided: Adult Hospital Medicine
[2020-08-15] MEDS ORDERED: METOPROLOL SUCC 50MG EXT REL TAB PO ONE (21:15)
[2020-08-15] MEDS ORDERED: GLUCAGON FOR INJ 1 MG VIAL SQ PRN (22:08)
[2020-08-15] MEDS ORDERED: GLUCOSE 10 TABS/TUBE PO PRN (22:08)
[2020-08-15] MEDS ORDERED: GLUCOSE 40% GEL 15 GM TUBE PO PRN (22:08)
[2020-08-15] MEDS ORDERED: DEXTROSE 50% 50 ML SYRINGE IV PRN (22:08)
[2020-08-15] MEDS: METOPROLOL SUCC 50MG EXT REL TAB PO SCH (22:45)
[2020-08-15] MEDS: TACROLIMUS 1 MG CAP PO SCH (22:47)
[2020-08-15] MEDS: amLODIPine BESYLATE 5 MG TAB PO SCH (22:47)
[2020-08-15] MEDS: DONEPEZIL HCL 5 MG TAB PO SCH (22:47)
[2020-08-15] MEDS: HEPARIN SOD 5,000 UNIT/0.5 ML VIAL SQ SCH (22:48)
[2020-08-15] MEDS: ursodioL 300 MG CAP PO SCH (22:48)
[2020-08-15] MEDS: INSULIN GLARGINE SOLOSTAR 100 UNITS/ML 3 ML PEN SC SCH (22:48)
[2020-08-15] MEDS: INSULIN ASPART 100 UNITS/ML 3 ML PEN SC SCH (22:49)
[2020-08-16 06:51] LABS: Basophils # (auto) 0.01 K/uL (0-0.2); Basophils % (auto) 0.2 %; Eosinophils # (auto) 0.19 K/uL (0-0.5); Eosinophils % (auto) 2.9 %; Hematocrit (blood only) 35.2 % (42-52); Hemoglobin 11.9 g/dL (14.0-18.0); Immature Granulocytes # (auto) 0.03 K/uL (0.00-0.02); Immature Granulocytes % (auto) 0.5 %; Lymphocytes # (auto) 2.09 K/uL (1.2-3.4); Lymphocytes % (auto) 31.8 %; Mean Corpuscular Hemoglobin 30.5 pg (25-34); Mean Corpuscular Hgb Conc 33.8 g/dL (32-36); Mean Corpuscular Volume 90.3 fL (80-100); Mean Platelet Volume 9.9 fL (7.4-10.4); Monocytes # (auto) 0.53 K/uL (0.11-0.59); Monocytes % (auto) 8.1 %; Neutrophils # (auto) 3.72 K/uL (1.4-6.5); Neutrophils % (auto) 56.5 %; Platelet Count 140 K/uL (130-400); RDW Coefficient of Variation 14.5 % (11.5-14.5); RDW Standard Deviation 47.7 fL (36.4-46.3); White Blood Count 6.57 K/uL (4.8-10.8)
[2020-08-16 07:01] LABS: Base Excess VBG 9.1 mEq/L; HCO3 VBG 35 mmol/L; Oxygen Saturation VBG < 60.0 %; PCO2 VBG 53 mmHg (38-50); PO2 VBG 24 mmHg; pH VBG 7.44 (7.36-7.41)
[2020-08-16 07:10] LABS: Albumin Level 2.9 gm/dl (3.4-5.0); BUN Creatinine Ratio 14.1 (10-20); Calcium 9.4 mg/dl (8.5-10.1); Creatinine Clr Calc Pharmacy 14.6 ml/min; Est GFR (African American) 14.6; Est GFR (Non-African American) 12.6; Potassium 3.7 mmol/L (3.5-5.1)
[2020-08-16 07:13] LABS: Albumin Globulin Ratio 0.9 (0.9-2); Bilirubin,Total 0.6 mg/dl (0.2-1); Globulin 3.4 gm/dl (2.5-4.0); Total Protein 6.3 gm/dl (6.4-8.2)
[2020-08-16 07:37] LABS: Estimated Average Glucose 157 mg/dl; Hemoglobin A1C 7.1 % (4.5-5.6)
[2020-08-16] MEDS: INSULIN ASPART 100 UNITS/ML 3 ML PEN SC SCH ×4 (08:18→21:37)
[2020-08-16] MEDS: HEPARIN SOD 5,000 UNIT/0.5 ML VIAL SQ SCH ×2 (08:20→19:47)
[2020-08-16] MEDS: INSULIN GLARGINE SOLOSTAR 100 UNITS/ML 3 ML PEN SC SCH ×2 (08:21→21:37)
[2020-08-16] MEDS: predniSONE 5 MG TAB PO SCH (08:22)
[2020-08-16] MEDS: CALCITRIOL 0.25 MCG CAPSULE PO SCH (08:23)
[2020-08-16] MEDS: ASPIRIN 81 MG ECTAB PO SCH (08:23)
[2020-08-16] MEDS: MAGNESIUM OXIDE 400 MG TAB PO SCH (08:23)
[2020-08-16] MEDS: TACROLIMUS 1 MG CAP PO SCH ×2 (08:23→19:50)
[2020-08-16] MEDS: ursodioL 300 MG CAP PO SCH ×2 (08:24→19:46)
[2020-08-16] MEDS: METOPROLOL SUCC 50MG EXT REL TAB PO SCH ×2 (09:11→19:51)
--- NOTE | 2020-08-16 12:36 | Cardiology Consultation ---
Date of Consultation August 16, 2020 Assessment & Plan (1) Bilateral edema of lower extremity: -secondary to hypervolemia. -would continue intravenous diuretics. -significant renal insufficiency noted and likely contributing to hypervolemia. (2) PAF (paroxysmal atrial fibrillation): -paroxysmal atrial fibrillation/flutter just recently diagnosed. -rate well controlled on metoprolol succinate. -could consider use of a novel agent once his clinical status improves. (3) Hypertension: -continue metoprolol succinate and amlodipine. -hopefully diuresis will improve his blood pressure. History of Present Illness Attending Physician: Marcelino Mcneal History of Present Illness Mr. Herrera is an 80-year-old male admitted yesterday with hypervolemia. This consultation was ordered to assist in his cardiac management. Of note, the patient is well known to me from the outpatient setting. The patient was in his usual state of poor health until approximately 2 weeks ago when he began to experience progressive shortness of breath, fatigue, exer cise intolerance, and lower extremity edema. The patient's explains that he had very little urination with use of his diuretic. He has not experienced any exertional chest pain. He further denies syncope, presyncope, PND, orthopnea, and claudication. The patient has been having difficulty with sleep. He was diagnosed with obstructive sleep apnea earlier this year. He sleeps very little at night and has been experiencing hallucinations. The patient was placed on a Holter monitor earlier this week which revealed paroxysmal atrial fibrillation. The patient does carry history of a chronic mild to moderate pericardial effusion. Of note, the patient underwent a liver transplant back in 1994 due to ascending cholangitis. Currently, patient is resting comfortably in bed without complaints. Past medical and surgical history 1. Hypertension 2. Paroxysmal atrial fibrillation 3. Paroxysmal SVT 4. Chronic mild to moderate pericardial effusion 5. Liver transplantation-1994 6. Diabetes mellitus 7. Chronic renal failure 8. Obstructive sleep apnea 9. BPH 10. Appendectomy 11. Cholecystectomy 12. Bilateral inguinal hernia repair Social history and lives with his Quit tobacco use in 1971 No alcohol Family history Noncontributory Review of systems A 10 point review systems was negative except for that described above. Allergies Allergy/AdvReac Type Severity Reaction Status Date / Time aspirin AdvReac Unknown high doses Verified 08/15/20 14:52 contrindicated d/t hx liver transplant ibuprofen AdvReac Unknown not to Verified 08/15/20 14:52 take due to transplant Home Medications Home Medications Medication Instructions Recorded Confirmed Type calcium carbonate [Calcium 600] 600 mg PO BID 01/09/19 08/15/20 History meclizine 25 mg PO DAILY PRN 01/09/19 08/15/20 History prednisone 5 mg PO QAM 01/09/19 08/15/20 History tacrolimus [Prograf] 3 mg PO QAM 01/09/19 08/15/20 History ursodiol 300 mg PO BID 01/09/19 08/15/20 History tacrolimus [Prograf] 2 mg PO QPM 02/26/19 08/15/20 History acetaminophen 500 mg capsule 500 mg PO Q4H PRN 06/19/19 08/15/20 History docusate sodium 100 mg capsule 100 mg PO QAM 06/19/19 08/15/20 History L. gasseri-B. bifidum-B longum 1 cap PO QAM 07/10/19 08/15/20 History [[facility]] lidocaine 5 % topical patch 1 patch TOP DAILY PRN 08/10/19 08/15/20 History polyethylene glycol 3350 17 gram 17 gm PO DAILY PRN 08/10/19 08/15/20 History oral powder packet calcitriol 0.5 mcg capsule 0.5 mcg PO QAM #30 cap 09/25/19 08/15/20 Rx pen needle, diabetic 32 gauge x See Rx Instructions .ROUTE 09/28/19 08/15/20 Rx 5/32" .COMPLEX #450 unspecified aspirin 81 mg PO QAM 03/17/20 08/15/20 History fludrocortisone 0.1 mg PO HS 03/17/20 08/15/20 History hydrocortisone 2.5 % topical cream 1 appln [place] DAILY PRN #28.35 gm 03/18/20 08/15/20 Rx with perineal applicator furosemide 20 mg tablet 20 mg PO QAM PRN #10 tab 04/28/20 08/15/20 Rx insulin degludec 100 unit/mL (3 14 units SUBCUT QAM ml 04/28/20 08/15/20 History mL) subcutaneous pen metoprolol succinate 50 mg 100 mg PO BID #120 tab 05/20/20 08/15/20 Rx tablet,extended release 24 hr venlafaxine 37.5 mg 37.5 mg PO DAILY@1700 #30 cap 07/10/20 08/15/20 Rx capsule,extended release 24 hr insulin aspart U-100 100 unit/mL 30 unit SUBCUT DAILY #15 ml 07/16/20 08/15/20 Rx (3 mL) subcutaneous pen Prolia 60 mg/mL subcutaneous 60 mg SUBCUT Q6MO #1 ml NS 07/22/20 08/15/20 Rx syringe amlodipine 5 mg tablet 5 mg PO DAILY #30 tab 07/22/20 08/15/20 Rx magnesium oxide 400 mg PO DAILY #90 tab 07/23/20 08/15/20 Rx donepezil 5 mg tablet 5 mg PO HS #30 tab 08/12/20 08/15/20 Rx tamsulosin 0.4 mg capsule 0.4 mg PO DAILY #90 cap 08/12/20 08/15/20 Rx triamcinolone acetonide 0.1 % 1 applic TOPICAL BID #30 g 08/12/20 08/15/20 Rx topical cream Patient History Medical History (Updated 08/16/20 @ 12:47 by Abe Madrigal MD) Abscess of skin of abdomen BPH (benign prostatic hyperplasia) Cancer SKIN CANCER-BASAL CELL/SQUAMOUS CKD (chronic kidney disease) Diabetes mellitus Hypertension Pancreatitis HX S/P liver transplant Sclerosing cholangitis S/P liver transplant 1994 Stage III chronic kidney disease Surgical History Fusion of spine LUMBAR H/O exploratory laparotomy FOR HEMATOMA/DIVERTIULITIS?-02/23/19 [facility] History of appendectomy History of cholecystectomy History of colonoscopy History of esophagogastroduodenoscopy (EGD) History of herniorrhaphy X 2 History of liver biopsy History of oral surgery Posts implanted in mandible for bottom denture History of tooth extraction Transplant LIVER 1994 IN [place] ([facility]) Family History Father Family history of diabetes mellitus Myocardial infarction Heart failure Mother Dementia Denies family history of Ovarian cancer Prostate cancer Breast cancer Colorectal cancer Social History Smoking Status: Former smoker Tobacco Type: Cigarettes Cigarettes Per Day: QUIT 1971; Second Hand Exposure: No; Do You Dip or Chew Tobacco: No; Tobacco Cessation Education Requested by Patient: No Hx Alcohol Use: No Hx Substance Use: No Preferred Language: Yoruba Communication Ability: hearing Telephonic Case Manager Required: No Beliefs That Will Affect Care: None marital status: Current Living Situation: Spouse current occupational status: retired Other Information That Helps Us Care for You: No Feels Safe at Home: Yes Safety Concerns: Feels Safe At This Time Dental Care, Regularly: Yes Seatbelt Use: always Sunscreen Use: Yes Assistive Devices: Glasses Physical Exam Physical Exam: In general this is a well-developed well-nourished white male in no acute distress. HEENT exam is negative. Neck is supple with full carotid upstrokes. There no carotid bruits. No JVD. Is no thyromegaly. Cardiovascular exam reveals a regular rhythm with a normal S1 and S2. No S3, S4, or murmurs are noted. Lungs are clear without rales, rhonchi, or wheezes. Abdomen is benign without bruits. Extremities reveal intact radial artery and posterior tibial pulses bilaterally. There is 1 to 2+ pedal and pretibial edema.. Results & Data ([facility]) Vital Signs (Past 12 Hours) Vital Signs Temp Pulse Pulse Resp BP BP Pulse Ox 08/16/20 12:07 36.4 C L 64 20 163/71 H 97 08/16/20 07:47 36.7 C 76 18 160/95 H 93 08/16/20 07:30 89 08/16/20 04:00 36.6 C 89 18 174/97 H 95 Laboratory Results CBC notes hemoglobin of 11.9, hematocrit 35.2, white count 6.5, platelet count of 285229. Electrolytes note a sodium of 140, potassium 3.7, chloride 100, bicarb 34, BUN 59, creatinine 4.18, glucose [place] 133[place] [address]. TSH is normal at 4.27. Diagnostic Findings EKG notes normal sinus rhythm and a lateral T-wave abnormality. is architect notes paroxysmal atrial flutter with a controlled ventricular response. Chest x-ray shows cardiomegaly and evidence of pulmonary edema. Brain MRI scan was normal. PG Care Time/CCT Total # of Minutes Spent Total Time Spent with Patient: Total time spent is greater than 50% in coordination of care (as documented) at patient's floor/unit and/or counseling patient: Coding Level of Care Code 68595 Initial Inpt Care Lvl 3 Diagnoses Bilateral edema of lower extremity R60.0 PAF (paroxysmal atrial fibrillation) I48.0 Hypertension I10 Hypertension type: unspecified (1) Hypertension Hypertension type: unspecified Qualified Code(s): I10 - Essential (primary) hypertension
--- NOTE | 2020-08-16 13:33 | Nephrology Consultation ---
Date of Consultation August 16, 2020 Assessment & Plan (1) NAM (acute kidney injury): Clinical presentation concerning for progression of CKD. Imaging has not demonstrated obstructive nephropathy. Renal arteries patent. Urine microscopy acellular. Medications appropriate for kidney function. 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 Agree with diuresis. Monitor kidney function with daily metabolic profile. Document I/O's. (2) CKD (chronic kidney disease), stage IV: Baseline creatinine 2.5-3.5 mg/dL. Attributed to DM, HTN, CNI therapy, and multiple episodes of NAM. Goals of care reviewed. Lawrence is potentially interested in IHD if needed. Thankfully there is no emergent indication for dialysis at this time. (3) Paroxysmal SVT (supraventricular tachycardia): Cardiology consult appreciated. Rate controlled. Follow up TTE pending. (4) BPH with obstruction/lower urinary tract symptoms: Bladder scan for PVR or no void within 8 hours. (5) Hypertension: BP and volume status acceptable. (6) Immunocompromised state: [place] and prednisone. No adjustment to therapy at this time. (7) S/P liver transplant: Coordinator: Anjelica Moulton ([phone]) History of Present Illness Reason for Consultation: NAM/CKD Requesting Physician: Marcelino Mcneal Attending Physician: Marcelino Mcneal History of Present Illness Mr. 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 Maintenance immunosuppression is Prograf and prednisone. He has some degree of nephropathy and a history of hyperkalemia associated with CNI therapy. Hyperkalemia has been managed with Florinef. RAAS blockade was stopped in the past due to difficulty managing serum potassium. He has diabetes mellitus II (>10 year, no retinopathy, A1c 7.1%), hypertension, osteoporosis as well as sPTH, BPH and elevated PSA, and osteoarthritis. 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 Proteinuria in the past quantified at approximately 1 g/g. Prograf goal trough level has been reduced to lowest tolerable limit per transplant team. Trough was 2.8 in July. Lawrence's conference service coordinator is Anjelica Moulton ([phone]). For secondary hyperparathyroidism, Lawrence has been maintained on calcitriol. Serum calcium remains less than 9. He is scheduled for Prolia Q 6 months for osteoporosis through Dr. Aldrich in the endocrine clinic. He has managed a history of paroxysmal SVT and his BP with metoprolol. Lawrence follows with Dr. Madrigal in the cardiology clinic as well for a chronic pericardial effusion and mild aortic insufficiency. Within the past few months, Lawrence developed accelerated blood pressure readings and amlodipine was started in June. Lawrence underwent decompression surgery with fusion for spinal stenosis at [facility] in May 2019. Lawrence has had NAM with progressive kidney dysfunction over the past several months. Evaluation noted some urinary retention without evidence of obstructive nephropathy. Patent renal arteries. Acellular urine microscopy. Creatinine was 2.3 mg/dL in January. In July creatinine was elevated at 3.5 mg/dL. Lawrence was seen and evaluated with his at the bedside today. I discussed the plan of care with Dr. Mcneal and Dr. Madrigal. Lawrence and his feel that recent changes in health are related to an episode of diverticulosis suffered in March as well as recent issues with JANES treatment, CPAP. Lawrence was struggling with poor sleep and increasing fatigue. Overall, since restarting CPAP, he initially started feeling better. Unfortunately, over the past several weeks, activity tolerance has been declining. He has experienced progressive fatigue, weakness, and shortness of breath with exertion. He developed progressive increasing lower extremity edema. Edema worsening with furosemide 20 mg daily. Weight has been relatively stable. No chest pain or palpitations. Cardiac Holter demonstrated PAF. Lawrence was referred for inpatient evaluation by his PCP. CXR in the ER demonstrated pulmonary vascular congestion and a small right pleural effusion. Bumex 1 mg IV was provided yesterday. Lawrence reports some improvement in symptoms today. Allergies Allergy/AdvReac Type Severity Reaction Status Date / Time aspirin AdvReac Unknown high doses Verified 08/15/20 14:52 contrindicated d/t hx liver transplant ibuprofen AdvReac Unknown not to Verified 08/15/20 14:52 take due to transplant Home Medications Home Medications Medication Instructions Recorded Confirmed Type calcium carbonate [Calcium 600] 600 mg PO BID 01/09/19 08/15/20 History meclizine 25 mg PO DAILY PRN 01/09/19 08/15/20 History prednisone 5 mg PO QAM 01/09/19 08/15/20 History tacrolimus [Prograf] 3 mg PO QAM 01/09/19 08/15/20 History ursodiol 300 mg PO BID 01/09/19 08/15/20 History tacrolimus [Prograf] 2 mg PO QPM 02/26/19 08/15/20 History acetaminophen 500 mg capsule 500 mg PO Q4H PRN 06/19/19 08/15/20 History docusate sodium 100 mg capsule 100 mg PO QAM 06/19/19 08/15/20 History L. gasseri-B. bifidum-B longum 1 cap PO QAM 07/10/19 08/15/20 History [facility]] lidocaine 5 % topical patch 1 patch TOP DAILY PRN 08/10/19 08/15/20 History polyethylene glycol 3350 17 gram 17 gm PO DAILY PRN 08/10/19 08/15/20 History oral powder packet calcitriol 0.5 mcg capsule 0.5 mcg PO QAM #30 cap 09/25/19 08/15/20 Rx pen needle, diabetic 32 gauge x See Rx Instructions .ROUTE 09/28/19 08/15/20 Rx 5/32" .COMPLEX #450 unspecified aspirin 81 mg PO QAM 03/17/20 08/15/20 History fludrocortisone 0.1 mg PO HS 03/17/20 08/15/20 History hydrocortisone 2.5 % topical cream 1 appln OH DAILY PRN #28.35 gm 03/18/20 08/15/20 Rx with perineal applicator furosemide 20 mg tablet 20 mg PO QAM PRN #10 tab 04/28/20 08/15/20 Rx insulin degludec 100 unit/mL (3 14 units SUBCUT QAM ml 04/28/20 08/15/20 History mL) subcutaneous pen metoprolol succinate 50 mg 100 mg PO BID #120 tab 05/20/20 08/15/20 Rx tablet,extended release 24 hr venlafaxine 37.5 mg 37.5 mg PO DAILY@1700 #30 cap 07/10/20 08/15/20 Rx capsule,extended release 24 hr insulin aspart U-100 100 unit/mL 30 unit SUBCUT DAILY #15 ml 07/16/20 08/15/20 Rx (3 mL) subcutaneous pen Prolia 60 mg/mL subcutaneous 60 mg SUBCUT Q6MO #1 ml NS 07/22/20 08/15/20 Rx syringe amlodipine 5 mg tablet 5 mg PO DAILY #30 tab 07/22/20 08/15/20 Rx magnesium oxide 400 mg PO DAILY #90 tab 07/23/20 08/15/20 Rx donepezil 5 mg tablet 5 mg PO HS #30 tab 08/12/20 08/15/20 Rx tamsulosin 0.4 mg capsule 0.4 mg PO DAILY #90 cap 08/12/20 08/15/20 Rx triamcinolone acetonide 0.1 % 1 applic TOPICAL BID #30 g 08/12/20 08/15/20 Rx topical cream Patient History Medical History Abscess of skin of abdomen BPH (benign prostatic hyperplasia) Cancer SKIN CANCER-BASAL CELL/SQUAMOUS CKD (chronic kidney disease) Diabetes mellitus Hypertension Pancreatitis HX S/P liver transplant Sclerosing cholangitis S/P liver transplant 1994 Stage III chronic kidney disease Surgical History Fusion of spine LUMBAR H/O exploratory laparotomy FOR HEMATOMA/DIVERTIULITIS?-02/23/19 [facility] History of appendectomy History of cholecystectomy History of colonoscopy History of esophagogastroduodenoscopy (EGD) History of herniorrhaphy X 2 History of liver biopsy History of oral surgery Posts implanted in mandible for bottom denture History of tooth extraction Transplant LIVER 1994 IN [place] ([facility]) Family History Father Family history of diabetes mellitus Myocardial infarction Heart failure Mother Dementia Denies family history of Ovarian cancer Prostate cancer Breast cancer Colorectal cancer Social History Smoking Status: Former smoker Tobacco Type: Cigarettes Cigarettes Per Day: QUIT 1971; Second Hand Exposure: No; Do You Dip or Chew Tobacco: No; Tobacco Cessation Education Requested by Patient: No Hx Alcohol Use: No Hx Substance Use: No Preferred Language: Nauruan Communication Ability: hearing Security Technician Required: No Beliefs That Will Affect Care: None marital status: Current Living Situation: Spouse current occupational status: retired Other Information That Helps Us Care for You: No Feels Safe at Home: Yes Safety Concerns: Feels Safe At This Time Dental Care, Regularly: Yes Seatbelt Use: always Sunscreen Use: Yes Assistive Devices: Glasses Review of Systems Constitutional: no weight loss, no weight gain and no problem reported Eyes: no problem reported Ear, Nose, Mouth, Throat: no problem reported Respiratory: no problem reported Cardiovascular: no problem reported Gastrointestinal: no problem reported Musculoskeletal: no problem reported Integumentary: no problem reported Neurologic: no problem reported Psychiatric: no problem reported Endocrine: no problem reported Hematologic / Lymphatic: no problem reported Physical Exam Constitutional: well developed, + thin and + frail appearing; no acute distress Eyes: no scleral abnormality and no corneal abnormality ENMT: Mouth: no oral mucosal abnormality and oral mucous membranes not dry Neck: normal visual inspection and trachea midline Respiratory: normal respiratory effort Auscultation: lungs clear to auscultation bilaterally Cardiovascular: Rate/Rhythm: regular rate Heart Sounds: normal S1, normal S2 and + murmur Vessels: + JVD Extremities: + edema Gastrointestinal (Abdomen): Percussion/Palpation: abdomen soft; abdomen nontender Musculoskeletal: Extremities: no cyanosis and no clubbing Skin: normal turgor; no lesions Neurologic: Motor/Sensory: no tremor and no asterixis Psychiatric: Orientation: alert and oriented x 3 Results & Data ([facility]) Vital Signs (Past 12 Hours) Vital Signs Temp Pulse Pulse Resp BP BP Pulse Ox 08/16/20 12:07 36.4 C L 64 20 163/71 H 97 08/16/20 07:47 36.7 C 76 18 160/95 H 93 08/16/20 07:30 89 08/16/20 04:00 36.6 C 89 18 174/97 H 95 Laboratory Results Laboratory Results - last 24 hr 08/15/20 08/15/20 08/15/20 15:35 15:35 16:45 WBC 6.63 RBC 3.57 L Hgb 10.5 L Hct 32.3 L MCV 90.5 MCH 29.4 MCHC 32.5 RDW Std Deviation 48.7 H RDW Coeff of Penelope 14.5 Plt Count 122 L MPV 10.2 Immature Gran % (Auto) 0.3 Neut % (Auto) 71.9 Lymph % (Auto) 21.0 [place] % (Auto) 5.4 Eos % (Auto) 1.2 Baso % (Auto) 0.2 Neut # (Auto) 4.77 Lymph # (Auto) 1.39 [place] # (Auto) 0.36 Eos # (Auto) 0.08 Baso # (Auto) 0.01 Immature Gran # (Auto) 0.02 VBG pH VBG pCO2 VBG pO2 VBG HCO3 VBG O2 Saturation VBG Base Excess Barometric Pressure Sodium 137 Potassium 4.2 Chloride 99 Carbon Dioxide 33 H Anion Gap 5.0 BUN 59 H Creatinine 4.18 H Est Cr Clr Drug Dosing 15.0 Est GFR ( Amer) 14.6 Est GFR (Non-Af Amer) 12.6 BUN/Creatinine Ratio 14.1 Glucose 114 H POC Glucose Estimat Average Glucose Hemoglobin A1c Calcium 9.3 Magnesium 1.8 Total Bilirubin 0.4 AST 17 ALT 24 Alkaline Phosphatase 82 Ammonia Troponin I < 0.015 NT-Pro-B Natriuret Pep 56545 H Total Protein 5.9 L Albumin 2.8 L Globulin 3.1 Albumin/Globulin Ratio 0.9 TSH 4.270 Urine Color Yellow Urine Appearance Clear Urine pH 7.5 Ur Specific [place] 1.013 Urine Protein 3+ H Urine Glucose (UA) Negative Urine Ketones Negative Urine Blood Negative Urine Nitrite Negative Urine Bilirubin Negative Urine Urobilinogen Negative Ur Leukocyte Esterase Negative Urine WBC (Auto) 1-5 Urine RBC (Auto) 0-4 U Hyaline Cast (Auto) 1-5 U Epithel Cells (Auto) 5-10 H Urine Bacteria (Auto) Negative 08/15/20 08/16/20 08/16/20 22:37 06:36 06:36 WBC 6.57 RBC 3.90 L Hgb 11.9 L Hct 35.2 L MCV 90.3 MCH 30.5 MCHC 33.8 RDW Std Deviation 47.7 H RDW Coeff of Penelope 14.5 Plt Count 140 MPV 9.9 Immature Gran % (Auto) 0.5 Neut % (Auto) 56.5 Lymph % (Auto) 31.8 [place] % (Auto) 8.1 Eos % (Auto) 2.9 Baso % (Auto) 0.2 Neut # (Auto) 3.72 Lymph # (Auto) 2.09 [place] # (Auto) 0.53 Eos # (Auto) 0.19 Baso # (Auto) 0.01 Immature Gran # (Auto) 0.03 H VBG pH VBG pCO2 VBG pO2 VBG HCO3 VBG O2 Saturation VBG Base Excess Barometric Pressure Sodium 140 Potassium 3.7 Chloride 100 Carbon Dioxide 34 H Anion Gap 6.0 BUN 59 H Creatinine 4.18 H Est Cr Clr Drug Dosing 14.6 Est GFR ( Amer) 14.6 Est GFR (Non-Af Amer) 12.6 BUN/Creatinine Ratio 14.1 Glucose 133 H POC Glucose 75 Estimat Average Glucose Hemoglobin A1c Calcium 9.4 Magnesium Total Bilirubin 0.6 AST 15 ALT 23 Alkaline Phosphatase 86 Ammonia Troponin I NT-Pro-B Natriuret Pep Total Protein 6.3 L Albumin 2.9 L Globulin 3.4 Albumin/Globulin Ratio 0.9 TSH Urine Color Urine Appearance Urine pH Ur Specific [place] Urine Protein Urine Glucose (UA) Urine Ketones Urine Blood Urine Nitrite Urine Bilirubin Urine Urobilinogen Ur Leukocyte Esterase Urine WBC (Auto) Urine RBC (Auto) U Hyaline Cast (Auto) U Epithel Cells (Auto) Urine Bacteria (Auto) 08/16/20 08/16/20 08/16/20 06:36 06:36 06:36 WBC RBC Hgb Hct MCV MCH MCHC RDW Std Deviation RDW Coeff of Penelope Plt Count MPV Immature Gran % (Auto) Neut % (Auto) Lymph % (Auto) [place] % (Auto) Eos % (Auto) Baso % (Auto) Neut # (Auto) Lymph # (Auto) [place] # (Auto) Eos # (Auto) Baso # (Auto) Immature Gran # (Auto) VBG pH 7.44 H VBG pCO2 53 H VBG pO2 24 VBG HCO3 35 VBG O2 Saturation < 60.0 VBG Base Excess 9.1 Barometric Pressure 732.6 Sodium Potassium Chloride Carbon Dioxide Anion Gap BUN Creatinine Est Cr Clr Drug Dosing Est GFR ( Amer) Est GFR (Non-Af Amer) BUN/Creatinine Ratio Glucose POC Glucose Estimat Average Glucose 157 Hemoglobin A1c 7.1 H Calcium Magnesium Total Bilirubin AST ALT Alkaline Phosphatase Ammonia 11.0 Troponin I NT-Pro-B Natriuret Pep Total Protein Albumin Globulin Albumin/Globulin Ratio TSH Urine Color Urine Appearance Urine pH Ur Specific [place] Urine Protein Urine Glucose (UA) Urine Ketones Urine Blood Urine Nitrite Urine Bilirubin Urine Urobilinogen Ur Leukocyte Esterase Urine WBC (Auto) Urine RBC (Auto) U Hyaline Cast (Auto) U Epithel Cells (Auto) Urine Bacteria (Auto) 08/16/20 08/16/20 07:27 11:45 WBC RBC Hgb Hct MCV MCH MCHC RDW Std Deviation RDW Coeff of Penelope Plt Count MPV Immature Gran % (Auto) Neut % (Auto) Lymph % (Auto) [place] % (Auto) Eos % (Auto) Baso % (Auto) Neut # (Auto) Lymph # (Auto) [place] # (Auto) Eos # (Auto) Baso # (Auto) Immature Gran # (Auto) VBG pH VBG pCO2 VBG pO2 VBG HCO3 VBG O2 Saturation VBG Base Excess Barometric Pressure Sodium Potassium Chloride Carbon Dioxide Anion Gap BUN Creatinine Est Cr Clr Drug Dosing Est GFR ( Amer) Est GFR (Non-Af Amer) BUN/Creatinine Ratio Glucose POC Glucose 174 H 151 H Estimat Average Glucose Hemoglobin A1c Calcium Magnesium Total Bilirubin AST ALT Alkaline Phosphatase Ammonia Troponin I NT-Pro-B Natriuret Pep Total Protein Albumin Globulin Albumin/Globulin Ratio TSH Urine Color Urine Appearance Urine pH Ur Specific [place] Urine Protein Urine Glucose (UA) Urine Ketones Urine Blood Urine Nitrite Urine Bilirubin Urine Urobilinogen Ur Leukocyte Esterase Urine WBC (Auto) Urine RBC (Auto) U Hyaline Cast (Auto) U Epithel Cells (Auto) Urine Bacteria (Auto) PG Care Time/CCT Total # of Minutes Spent Total Time Spent with Patient: Total time spent is greater than 50% in coordination of care (as documented) at patient's floor/unit and/or counseling patient: Coding Level of Care Code 91147 Inpt Consult Level 4 Diagnoses NAM (acute kidney injury) N17.9 CKD (chronic kidney disease), stage IV N18.4 Paroxysmal SVT (supraventricular tachycardia) I47.1 BPH with obstruction/lower urinary tract symptoms N40.1; N13.8 Hypertension I10 Hypertension type: unspecified Immunocompromised state D84.9 S/P liver transplant Z94.4 (1) Hypertension Hypertension type: unspecified Qualified Code(s): I10 - Essential (primary) hypertension
[2020-08-16] MEDS ORDERED: BUMETANIDE 1 MG in SYRINGE 0 ML IV ONE (14:00)
[2020-08-16] MEDS: CARBOHYDRATES FOR HYPOGLYCEMIA PO PRN (16:42)
[2020-08-16] MEDS: VENLAFAXINE HCL XR 37.5 MG CAPXR PO SCH (17:30)
[2020-08-16] MEDS: DONEPEZIL HCL 5 MG TAB PO SCH (19:47)
[2020-08-16] MEDS: amLODIPine BESYLATE 5 MG TAB PO SCH (19:48)
--- NOTE | 2020-08-16 22:35 | Hospitalist Progress Note ---
Date of Service August 16, 2020 Assessment & Plan (1) Generalized weakness: Lawrence is an 80-year-old male with a past medical history of liver transplant due to a sending cholangitis with subsequent development of end-stage renal disease nonoliguric, sleep apnea, aortic valve insufficiency, depression, and diabetes who presents to the hospital with 4 months of progressive shortness of breath, fatigue, and intermittent hallucinations who was prompted to present to the ER after a recent Holter showed evidence of atrial fibrillation. Edema/shortness of breath Multifactorial. Some underlying venous stasis and baseline CKD/ESRD nonoliguric, patient followed by cardiology and may have underlying CHF exacerbated by A. fib Chest x-ray: Pulmonary vascular congestion and edema, right-sided effusion, bibasilar atelectasis BNP: 13 K Creatinine as below, normal ratio will continue diuretics IV BID. Nephro consulted, cardiology consulted Diuresis with caution given unclear baseline creatinine and underlying ESRD CHF, acute exacerbation potentially precipitated by pAfib Patient in normal sinus rhythm on admission Recent Holter monitor showed A. fib not on anticoagulation Patient told to avoid aspirin, ibuprofen, and thinners due to his transplant status in the past. [id number] 4+. Recommend anticoagulation prior to discharge. New systolic murmur appreciated, echo pending Troponin normal on admission, clinically without chest pain History of fatigue, confusion, visual hallucinations Patient endorses difficulty sleeping without his BiPAP, intermittent visual hallucinations that he recognizes are not there Recent evaluation including MRI showed no intracranial abnormalities CO2 mildly elevated on admitting blood work, VBG pending BiPAP as below overnight, follow clinically History of unstable potassium Patient with unstable potassium following his liver transplant Avoid any RAAS agents - Continue florinef daily - BMP daily - K wnl on admit Type 2 diabetes mellitus with nephropathy Hold home insulin degludec Insulin glargine continue sliding scale. 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 No transaminitis on admission JANES -Pt not doign well on CPAP at home, was under evaluation for ASV/BiPAP - BiPAP 08/11, adjust as needed - VBG pending as above Osteoporosis, history of calcium derangement Followed by endocrinology outpatient DVT prophylaxis: Heparin 5000 twice daily, SCDs Diet: Heart healthy Disposition: Medical surgical with telemetry CODE STATUS: DNR, patient okay with trial of intubation if needed for respiratory status. Discussed with patient and at bedside (2) SOB (shortness of breath): (3) BPH (benign prostatic hyperplasia): (4) Type 2 DM with CKD stage 3 and hypertension: (5) Complex sleep apnea syndrome: (6) Atrial fibrillation: (7) S/P liver transplant: Coordinator: Anjelica Moulton ([phone]) (8) Dyspnea: Admission and Anticipated Discharge Date Admission Date: August 15, 2020 Subjective Patient has no new complaints. 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 NAD. Cooperative. HEENT: Atraumatic, normocephalic. Pupils equal and responsive to light and accommodation. Pulm: Bibasilar crackles, no rales. Symmetrical chest rise. No increase work of breathing. No respiratory distress. Cardiac: Regular rate and rhythm, systolic murmur present. Radial pulses intact and symmetrical. JVD is present 2 cm above the clavicle with hepatojugular reflex. Abdominal: Nontender, nondistended, soft. BS present. Extremities: Moves all extremities equally, resin painter strength, ankle plantar flexion/dorsiflexion, hip flexion 4+/5 bilateral. Sensation is soft touch intact in fingers and toes and symmetrical without deficit. Pitting edema is present through the ankles and mid calf bilaterally. No calf tenderness, Homans negative. Results & Data Results & Data ([facility]) Vital Signs (Past 12 Hours) Vital Signs Temp Pulse Pulse Resp BP BP Pulse Ox 08/16/20 22:25 18 95 08/16/20 19:00 36.6 C 96 H 18 190/96 H 199/103 H 95 08/16/20 15:04 36.6 C 62 20 187/101 H 98 08/16/20 15:00 65 08/16/20 12:07 36.4 C L 64 20 163/71 H 97 PG Care Time/CCT Total # of Minutes Spent Total Time Spent with Patient: Total time spent is greater than 50% in coordination of care (as documented) at patient's floor/unit and/or counseling patient: Coding Level of Care Code 27694 Subseq Hosp Care Lvl 2 Diagnoses Generalized weakness R53.1 SOB (shortness of breath) R06.02 BPH (benign prostatic hyperplasia) N40.0 Type 2 DM with CKD stage 3 and hypertension E11.22; I12.9; N18.30 Complex sleep apnea syndrome G47.31 Atrial fibrillation I48.91 S/P liver transplant Z94.4 Dyspnea R06.00 Time Spent (min) 25
[2020-08-17] MEDS: CARBOHYDRATES FOR HYPOGLYCEMIA PO PRN (07:31)
[2020-08-17] MEDS: CALCITRIOL 0.25 MCG CAPSULE PO SCH (08:05)
[2020-08-17] MEDS: ASPIRIN 81 MG ECTAB PO SCH (08:05)
[2020-08-17] MEDS: predniSONE 5 MG TAB PO SCH (08:05)
[2020-08-17] MEDS: ursodioL 300 MG CAP PO SCH ×2 (08:05→20:54)
[2020-08-17] MEDS: METOPROLOL SUCC 50MG EXT REL TAB PO SCH ×2 (08:05→20:54)
[2020-08-17] MEDS: TACROLIMUS 1 MG CAP PO SCH ×2 (08:05→20:54)
[2020-08-17] MEDS: MAGNESIUM OXIDE 400 MG TAB PO SCH (08:05)
[2020-08-17] MEDS: HEPARIN SOD 5,000 UNIT/0.5 ML VIAL SQ SCH ×2 (08:09→22:21)
[2020-08-17] MEDS: INSULIN ASPART 100 UNITS/ML 3 ML PEN SC SCH ×4 (08:14→20:55)
[2020-08-17] MEDS: INSULIN GLARGINE SOLOSTAR 100 UNITS/ML 3 ML PEN SC SCH (08:14)
[2020-08-17 08:39] LABS: Albumin Globulin Ratio 0.9 (0.9-2); BUN Creatinine Ratio 14.6 (10-20); Bilirubin,Total 0.7 mg/dl (0.2-1); Calcium 9.4 mg/dl (8.5-10.1); Creatinine Clr Calc Pharmacy 14.3 ml/min; Est GFR (African American) 14.9; Est GFR (Non-African American) 12.8; Globulin 3.5 gm/dl (2.5-4.0); Phosphorus 3.7 mg/dl (2.5-4.9); Potassium 3.3 mmol/L (3.5-5.1); Total Protein 6.5 gm/dl (6.4-8.2)
[2020-08-17] MEDS ORDERED: BUMETANIDE 1 MG TAB PO ONE (11:00)
--- NOTE | 2020-08-17 12:28 | Nephrology Progress Note ---
Date of Service August 17, 2020 Assessment & Plan (1) NAM (acute kidney injury): Clinical presentation concerning for progression of CKD. Imaging has not demonstrated obstructive nephropathy. Renal arteries patent. Urine microscopy acellular. Medications appropriate for kidney function. Will continue diuresis with Bumex 1 mg daily (given PO this AM). Monitor kidney function with daily metabolic profile. Document I/O's. Fludrocortisone given for CNI associated hyperkalemia has been held. K+ and other electrolytes are acceptable. (2) CKD (chronic kidney disease), stage IV: Baseline creatinine 2.5-3.5 mg/dL. Attributed to DM, HTN, CNI therapy, and multiple episodes of NAM. Goals of care reviewed. Lawrence is potentially interested in IHD if needed. 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 We have discussed this in the past. (3) Paroxysmal SVT (supraventricular tachycardia): Cardiology consult appreciated. Rate controlled. Follow up TTE pending. (4) BPH with obstruction/lower urinary tract symptoms: Bladder scan for PVR or no void within 8 hours. (5) Hypertension: Volume status improving. BP remains slightly elevated. Fludrocortisone held. Increase amlodipine to 10 mg daily as needed. (6) Immunocompromised state: [place] and prednisone. No adjustment to therapy at this time. (7) S/P liver transplant: Coordinator: Anjelica Moulton ([phone]) Admission and Anticipated Discharge Date Admission Date: August 15, 2020 Subjective No acute events overnight. Lawrence feels reasonably well this morning. He remains very weak and tired. Appetite is fair. He did have some nausea this AM prior to breakfast. Edema has significantly improved. He denies chest pain or palpitations. He denies lightheadedness or dizziness. No abdominal pain. No constipation or diarrhea. Review of Systems Review of Systems: All systems reviewed & are unremarkable except as noted in HPI & below Physical Exam Constitutional: well developed, + thin and + frail appearing; no acute distress Eyes: no scleral abnormality and no corneal abnormality ENMT: Mouth: no oral mucosal abnormality and oral mucous membranes not dry Neck: normal visual inspection and trachea midline Respiratory: normal respiratory effort Auscultation: lungs clear to auscultation bilaterally Cardiovascular: Rate/Rhythm: regular rate Heart Sounds: normal S1, normal S2 and + murmur Vessels: + JVD Extremities: + edema Gastrointestinal (Abdomen): Percussion/Palpation: abdomen soft; abdomen nontender Musculoskeletal: Extremities: no cyanosis and no clubbing Skin: normal turgor; no lesions Neurologic: Motor/Sensory: no tremor and no asterixis Psychiatric: Orientation: alert and oriented x 3 Results & Data ([facility]) Vital Signs (Past 12 Hours) Vital Signs Temp Pulse Pulse Resp BP BP Pulse Ox 08/17/20 11:00 36.3 C L 63 18 185/68 H 96 08/17/20 07:30 83 08/17/20 07:00 36.8 C 84 18 171/82 H 96 08/17/20 04:27 36.7 C 76 20 198/110 H 96 08/17/20 02:05 80 20 97 Laboratory Results Laboratory Results - last 24 hr 08/16/20 08/16/20 08/16/20 16:31 16:32 16:55 Sodium Potassium Chloride Carbon Dioxide Anion Gap BUN Creatinine Est Cr Clr Drug Dosing Est GFR ( Amer) Est GFR (Non-Af Amer) BUN/Creatinine Ratio Glucose POC Glucose 67 L* 66 L* 92 Calcium Phosphorus Total Bilirubin AST ALT Alkaline Phosphatase Total Protein Albumin Globulin Albumin/Globulin Ratio 08/16/20 08/17/20 08/17/20 20:16 07:21 07:26 Sodium 141 Potassium 3.3 L Chloride 100 Carbon Dioxide 34 H Anion Gap 7.0 BUN 60 H Creatinine 4.11 H Est Cr Clr Drug Dosing 14.3 Est GFR ( Amer) 14.9 Est GFR (Non-Af Amer) 12.8 BUN/Creatinine Ratio 14.6 Glucose 51 L* POC Glucose 133 H 60 L* Calcium 9.4 Phosphorus 3.7 Total Bilirubin 0.7 AST 18 ALT 23 Alkaline Phosphatase 89 Total Protein 6.5 Albumin 3.0 L Globulin 3.5 Albumin/Globulin Ratio 0.9 08/17/20 08/17/20 08/17/20 07:28 07:56 11:34 Sodium Potassium Chloride Carbon Dioxide Anion Gap BUN Creatinine Est Cr Clr Drug Dosing Est GFR ( Amer) Est GFR (Non-Af Amer) BUN/Creatinine Ratio Glucose POC Glucose 62 L* 93 187 H Calcium Phosphorus Total Bilirubin AST ALT Alkaline Phosphatase Total Protein Albumin Globulin Albumin/Globulin Ratio PG Care Time/CCT Total # of Minutes Spent Total Time Spent with Patient: Total time spent is greater than 50% in coordination of care (as documented) at patient's floor/unit and/or counseling patient: Coding Level of Care Code 83386 Subseq Hosp Care Lvl 3 Diagnoses NAM (acute kidney injury) N17.9 CKD (chronic kidney disease), stage IV N18.4 Paroxysmal SVT (supraventricular tachycardia) I47.1 BPH with obstruction/lower urinary tract symptoms N40.1; N13.8 Hypertension I10 Hypertension type: unspecified Immunocompromised state D84.9 S/P liver transplant Z94.4 (1) Hypertension Hypertension type: unspecified Qualified Code(s): I10 - Essential (primary) hypertension
--- NOTE | 2020-08-17 14:33 | Billing Data ---
Date of Service August 15, 2020 Coding Level of Care Code 64122 Initial Inpt Care Lvl 3
[2020-08-17 15:14] LABS: BUN Creatinine Ratio 13.8 (10-20); Calcium 9.1 mg/dl (8.5-10.1); Creatinine Clr Calc Pharmacy 13.2 ml/min; Est GFR (African American) 13.6; Est GFR (Non-African American) 11.7; Potassium 3.7 mmol/L (3.5-5.1)
[2020-08-17] MEDS: VENLAFAXINE HCL XR 37.5 MG CAPXR PO SCH (17:38)
[2020-08-17] MEDS: DONEPEZIL HCL 5 MG TAB PO SCH (20:54)
[2020-08-17] MEDS: amLODIPine BESYLATE 5 MG TAB PO SCH (20:54)
--- NOTE | 2020-08-17 21:51 | Hospitalist Progress Note ---
Date of Service August 17, 2020 Assessment & Plan (1) Generalized weakness: Lawrence is an 80-year-old male with a past medical history of liver transplant due to a sending cholangitis with subsequent development of end-stage renal disease nonoliguric, sleep apnea, aortic valve insufficiency, depression, and diabetes who presents to the hospital with 4 months of progressive shortness of breath, fatigue, and intermittent hallucinations who was prompted to present to the ER after a recent Holter showed evidence of atrial fibrillation. Edema/shortness of breath Multifactorial. Some underlying venous stasis and baseline CKD/ESRD nonoliguric, patient followed by cardiology and may have underlying CHF exacerbated by A. fib Chest x-ray: Pulmonary vascular congestion and edema, right-sided effusion, bibasilar atelectasis BNP: 13 K Creatinine as below, normal ratio will continue diuretics IV BID. Nephro consulted, cardiology consulted Diuresis with caution given unclear baseline creatinine and underlying ESRD -tolerating treatment. CHF, acute exacerbation potentially precipitated by pAfib Patient in normal sinus rhythm on admission Recent Holter monitor showed A. fib not on anticoagulation Patient told to avoid aspirin, ibuprofen, and thinners due to his transplant status in the past. [id number]+. Recommend anticoagulation prior to discharge. New systolic murmur appreciated, echo pending Troponin normal on admission, clinically without chest pain History of fatigue, confusion, visual hallucinations Patient endorses difficulty sleeping without his BiPAP, intermittent visual hallucinations that he recognizes are not there Recent evaluation including MRI showed no intracranial abnormalities CO2 mildly elevated on admitting blood work BiPAP as below overnight, follow clinically History of unstable potassium Patient with unstable potassium following his liver transplant Avoid any RAAS agents - Continue florinef daily - BMP daily - K wnl on admit Type 2 diabetes mellitus with nephropathy Hold home insulin degludec Insulin glargine continue sliding scale. 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 No transaminitis on admission JANES -Pt not doign well on CPAP at home, was under evaluation for ASV/BiPAP - BiPAP /, adjust as needed - VBG pending as above Osteoporosis, history of calcium derangement Followed by endocrinology outpatient DVT prophylaxis: Heparin 5000 twice daily, SCDs Diet: Heart healthy Disposition: Medical surgical with telemetry CODE STATUS: DNR, patient okay with trial of intubation if needed for respiratory status. Discussed with patient and at bedside (2) SOB (shortness of breath): (3) BPH (benign prostatic hyperplasia): (4) Type 2 DM with CKD stage 3 and hypertension: (5) Complex sleep apnea syndrome: (6) Atrial fibrillation: (7) S/P liver transplant: Coordinator: Anjelica Moulton ([phone]) (8) Dyspnea: Admission and Anticipated Discharge Date Admission Date: August 15, 2020 Subjective No new complaints today. Review of Systems Review of Systems: All systems reviewed & are unremarkable except as noted in HPI & below Physical Exam Physical Exam: General: A&Ox3. NAD. Cooperative. HEENT: Atraumatic, normocephalic. Pupils equal and responsive to light and accommodation. Pulm: Bibasilar crackles, no rales. Symmetrical chest rise. No increase work of breathing. No respiratory distress. Cardiac: Regular rate and rhythm, systolic murmur present. Radial pulses intact and symmetrical. JVD is present 2 cm above the clavicle with hepatojugular reflex. Abdominal: Nontender, nondistended, soft. BS present. 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 Sensation is soft touch intact in fingers and toes and symmetrical without deficit. Pitting edema is present through the ankles and mid calf bilaterally. No calf tenderness, Homans negative. Results & Data Results & Data ([facility]) Vital Signs (Past 12 Hours) Vital Signs Temp Pulse Pulse Resp BP BP Pulse Ox 08/17/20 19:00 36.6 C 88 18 186/92 H 93 08/17/20 15:25 64 08/17/20 15:00 36.5 C 64 18 165/88 H 98 08/17/20 11:00 36.3 C L 63 18 185/68 H 96 PG Care Time/CCT Total # of Minutes Spent Total Time Spent with Patient: Total time spent is greater than 50% in coordination of care (as documented) at patient's floor/unit and/or counseling patient: Coding Level of Care Code 06793 Subseq Hosp Care Lvl 2 Diagnoses Generalized weakness R53.1 SOB (shortness of breath) R06.02 BPH (benign prostatic hyperplasia) N40.0 Type 2 DM with CKD stage 3 and hypertension E11.22; I12.9; N18.30 Complex sleep apnea syndrome G47.31 Atrial fibrillation I48.91 S/P liver transplant Z94.4 Dyspnea R06.00 Time Spent (min) 25
[2020-08-17] MEDS ORDERED: amLODIPine BESYLATE 5 MG TAB PO ONE (23:57)
[2020-08-18 06:49] LABS: Hematocrit (blood only) 36.2 % (42-52); Hemoglobin 12.3 g/dL (14.0-18.0); Mean Corpuscular Hemoglobin 30.2 pg (25-34); Mean Corpuscular Volume 88.9 fL (80-100); Mean Platelet Volume 9.4 fL (7.4-10.4); Platelet Count 136 K/uL (130-400); RDW Coefficient of Variation 14.7 % (11.5-14.5); Red Blood Count 4.07 M/uL (4.7-6.1); White Blood Count 6.08 K/uL (4.8-10.8)
[2020-08-18 07:25] LABS: Albumin Level 2.9 gm/dl (3.4-5.0); BUN Creatinine Ratio 14.3 (10-20); Calcium 9.3 mg/dl (8.5-10.1); Creatinine Clr Calc Pharmacy 13.3 ml/min; Est GFR (African American) 13.9; Phosphorus 3.6 mg/dl (2.5-4.9); Potassium 3.5 mmol/L (3.5-5.1)
[2020-08-18] MEDS: METOPROLOL SUCC 50MG EXT REL TAB PO SCH ×2 (07:59→19:59)
[2020-08-18] MEDS: CALCITRIOL 0.25 MCG CAPSULE PO SCH (08:36)
[2020-08-18] MEDS: MAGNESIUM OXIDE 400 MG TAB PO SCH (08:36)
[2020-08-18] MEDS: ASPIRIN 81 MG ECTAB PO SCH (08:37)
[2020-08-18] MEDS: predniSONE 5 MG TAB PO SCH (08:37)
[2020-08-18] MEDS: ursodioL 300 MG CAP PO SCH ×2 (08:37→20:03)
[2020-08-18] MEDS: HEPARIN SOD 5,000 UNIT/0.5 ML VIAL SQ SCH ×2 (08:38→20:00)
[2020-08-18] MEDS: INSULIN GLARGINE SOLOSTAR 100 UNITS/ML 3 ML PEN SC SCH (08:38)
[2020-08-18] MEDS: INSULIN ASPART 100 UNITS/ML 3 ML PEN SC SCH ×4 (08:39→20:39)
[2020-08-18] MEDS: TACROLIMUS 1 MG CAP PO SCH ×2 (08:41→20:04)
--- NOTE | 2020-08-18 10:38 | Nephrology Progress Note ---
Date of Service August 18, 2020 Assessment & Plan (1) NAM (acute kidney injury): Clinical presentation concerning for progression of CKD. Imaging has not demonstrated obstructive nephropathy. Renal arteries patent. Urine microscopy acellular. Medications appropriate for kidney function. Has diuresed well with Bumex 1 mg daily. I switched back to home dose of furosemide 20 mg today. Monitor kidney function with daily metabolic profile. Document I/O's. Fludrocortisone Rx'd for CNI associated hyperkalemia has been held. K+ and other electrolytes are acceptable. There is no indication to restart at this time. (2) CKD (chronic kidney disease), stage IV: Baseline creatinine 2.5-3.5 mg/dL. Attributed to DM, HTN, CNI therapy, and multiple episodes of NAM. Goals of care reviewed. Lawrence is potentially interested in IHD if needed. 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 No emergent indication at this time. Close outpatient follow up will be necessary. (3) Paroxysmal SVT (supraventricular tachycardia): Cardiology consult appreciated. Paroxysmal. Rate controlled. Not currently anticoagulated. (4) BPH with obstruction/lower urinary tract symptoms: Bladder scan for PVR or no void within 8 hours. (5) Hypertension: Volume status improving. BP remains slightly elevated. Fludrocortisone held. Amlodipine increased to 10 mg yesterday. Increase metoprolol as tolerated. (6) Immunocompromised state: [place] and prednisone. No adjustment to therapy at this time. (7) S/P liver transplant: Coordinator: Anjelica Moulton ([phone]). Will follow up with Carmen today regarding consideration for adjustment of CNI therapy. Admission and Anticipated Discharge Date Admission Date: August 15, 2020 Subjective No acute events overnight. Lawrence feels reasonably well this morning. He asked about going home. He remains weak but this has been chronic. He is feeling less tired. His breathing is slightly better. Edema has significantly improved. No nausea today. He denies chest pain or palpitations. He denies lightheadedness or dizziness. Review of Systems Review of Systems: All systems reviewed & are unremarkable except as noted in HPI & below Physical Exam Constitutional: well developed, + thin and + frail appearing; no acute distress Eyes: no scleral abnormality and no corneal abnormality ENMT: Mouth: no oral mucosal abnormality and oral mucous membranes not dry Neck: normal visual inspection and trachea midline Respiratory: normal respiratory effort Auscultation: lungs clear to auscultation bilaterally Cardiovascular: Rate/Rhythm: regular rate Heart Sounds: normal S1, normal S2 and + murmur Vessels: + JVD Extremities: + edema Gastrointestinal (Abdomen): Percussion/Palpation: abdomen soft; abdomen nontender Musculoskeletal: Extremities: no cyanosis and no clubbing Skin: normal turgor; no lesions Neurologic: Motor/Sensory: no tremor and no asterixis Psychiatric: Orientation: alert and oriented x 3 Results & Data ([facility]) Vital Signs (Past 12 Hours) Vital Signs Temp Pulse Pulse Resp BP BP Pulse Ox 08/18/20 08:00 89 163/100 H 08/18/20 07:52 36.9 C 58 L 20 170/90 H 95 08/18/20 07:00 64 08/18/20 03:57 36.6 C 63 18 155/81 H 94 08/17/20 23:00 36.7 C 86 18 185/109 H 185/117 H 98 Laboratory Results Laboratory Results - last 24 hr 08/17/20 08/17/20 08/17/20 11:34 14:51 16:28 WBC RBC Hgb Hct MCV MCH MCHC RDW Std Deviation RDW Coeff of Penelope Plt Count MPV Sodium 138 Potassium 3.7 Chloride 98 Carbon Dioxide 34 H Anion Gap 6.0 BUN 61 H Creatinine 4.43 H D Est Cr Clr Drug Dosing 13.2 Est GFR ( Amer) 13.6 Est GFR (Non-Af Amer) 11.7 BUN/Creatinine Ratio 13.8 Glucose 146 H POC Glucose 187 H 120 H Calcium 9.1 Phosphorus Albumin 08/17/20 08/18/20 08/18/20 20:29 06:18 06:18 WBC 6.08 RBC 4.07 L Hgb 12.3 L Hct 36.2 L MCV 88.9 MCH 30.2 MCHC 34.0 RDW Std Deviation 48.0 H RDW Coeff of Penelope 14.7 H Plt Count 136 MPV 9.4 Sodium 140 Potassium 3.5 Chloride 100 Carbon Dioxide 34 H Anion Gap 6.0 BUN 62 H Creatinine 4.33 H Est Cr Clr Drug Dosing 13.3 Est GFR ( Amer) 13.9 Est GFR (Non-Af Amer) 12.0 BUN/Creatinine Ratio 14.3 Glucose 90 POC Glucose 121 H Calcium 9.3 Phosphorus 3.6 Albumin 2.9 L 08/18/20 07:38 WBC RBC Hgb Hct MCV MCH MCHC RDW Std Deviation RDW Coeff of Penelope Plt Count MPV Sodium Potassium Chloride Carbon Dioxide Anion Gap BUN Creatinine Est Cr Clr Drug Dosing Est GFR ( Amer) Est GFR (Non-Af Amer) BUN/Creatinine Ratio Glucose POC Glucose 109 H Calcium Phosphorus Albumin PG Care Time/CCT Total # of Minutes Spent Total Time Spent with Patient: Total time spent is greater than 50% in coordination of care (as documented) at patient's floor/unit and/or counseling patient: Coding Level of Care Code 84979 Subseq Hosp Care Lvl 3 Diagnoses NAM (acute kidney injury) N17.9 CKD (chronic kidney disease), stage IV N18.4 Paroxysmal SVT (supraventricular tachycardia) I47.1 BPH with obstruction/lower urinary tract symptoms N40.1; N13.8 Hypertension I10 Hypertension type: unspecified Immunocompromised state D84.9 S/P liver transplant Z94.4 (1) Hypertension Hypertension type: unspecified Qualified Code(s): I10 - Essential (primary) hypertension
[2020-08-18] MEDS: FUROSEMIDE 20 MG TAB PO SCH (11:49)
--- NOTE | 2020-08-18 12:24 | Palliative Care Consultation ---
Date of Consultation August 18, 2020 Assessment & Plan (1) Goals of care, counseling/discussion: Patient is an 80-year-old male with a past medical history for diabetes- A1c 7.1, CKD stage III, hypertension, BPH, JANES and newly diagnosed A. fib. 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 Patient has a smoking history-quit in 1971. Patient reports patient has been having increased weakness and lower extremity edema since February-this is slowly increased to his edema was above the knee. Patient had a Holter monitor placed that showed paroxysmal A. fib. reports patient was able to go up and down the stairs multiple times a day, they were able to go for long walks without any difficulty. Over the last several weeks patient has had decrease in endurance due to shortness of breath and fatigue. reports she noted symptoms of sleep apnea in February-he put off getting tested until May. Patient was positive for JANES. He was started on CPAP in July-was switched to BiPAP approximately 3 weeks ago. Patient did have some improvement, but however did not return to his prior baseline. and patient report his appetite and p.o. intake has remained the same, however he has had a 15 pound weight loss prior to admission. Patient and have been for 55 years-they have no children. Patient and have discussed general advance directives-no written living will. Patient names his as his healthcare surrogate-did advise patient and to have a secondary healthcare surrogate- states she will speak to their nieces and nephews. Patient was admitted on 08/15 from PCP office for increased lower extremity e vanessa, increased weakness, fatigue and shortness of breath. Patient has been diuresed-with improvement in his shortness of breath, however his CKD has worsened. Patient was seen by Dr. Sunshine-he stated he would be interested in HD or PD if needed-we will continue to follow with Dr. Sunshine. Patient's creatinine on admission was 4.18-peaked at 4. 4 3, was 4.33 on labs drawn today. Of note patient's albumin is 2.9. -Goals of care-CODE STATUS-conditional code-patient is on BiPAP at night-would be amenable to short-term intubation if needed. Would not want long-term intubation. No chest compressions, no defibrillation. -Shortness of breath-improving after diuresis-patient with good saturations on room air. -Lower extremity edema-new onset, patient scheduled for cardiac echo, heart function was noted to be normal per cardiology note in May 2019. -CKD stage III-now stage IV + , patient agreeable to HD-further plans per nephrology -Fiyndbtb-pzvo-czfsxjkvqg, A1c 7.1 -Status post liver transplant 1994-doing well on tacrolimus and prednisone -Will continue to follow, await cardiac echo. May need to revisit goals of care if cardiac echo shows any significant changes -Discussed advance care planning with both and . -PPS 40% (2) Dyspnea: (3) Fatigue: (4) Bilateral edema of lower extremity: (5) CKD (chronic kidney disease), stage IV: (6) Type 2 DM with CKD stage 3 and hypertension: (7) Obstructive sleep apnea: (8) S/P liver transplant: History of Present Illness Reason for Consultation: Address goals of care Requesting Physician: Dr. Jose Barclay Attending Physician: Marcelino Mcneal History of Present Illness Chart reviewed, patient seen and examined with resident physician in room 285-2. Patient's Dhara at bedside. Patient is hard of hearing even with hearing aids. Patient is an 80-year-old male with a past medical history for diabetes-A1c 7.1, CKD stage III, hypertension, BPH, JANES and newly diagnosed A. fib. 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 Patient has a smoking history-quit in 1971. Patient reports patient has been having increased weakness and lower extremity edema since February-this is slowly increased to his edema was above the knee. Patient had a Holter monitor placed that showed paroxysmal A. fib. reports patient was able to go up and down the stairs multiple times a day, they were able to go for long walks without any difficulty. Over the last several weeks patient has had decrease in endurance due to shortness of breath and fatigue. reports she noted symptoms of sleep apnea in February-he put off getting tested until May. Patient was positive for JANES. He was started on CPAP in July-was switched to BiPAP approximately 3 weeks ago. Patient did have some improvement, but however did not return to his prior baseline. and patient report his appetite and p.o. intake has remained the same, however he has had a 15 pound weight loss prior to admission. Patient and have been for 55 years-they have no children. Patient and have discussed general advance directives-no written living will. Patient names his as his healthcare surrogate-did advise patient and to have a secondary healthcare surrogate- states she will speak to their nieces and nephews. Patient was admitted on 08/15 from PCP office for increased lower extremity edema, increased weakness, fatigue and shortness of breath. Patient has been diuresed-with improvement in his shortness of breath, however his CKD has worsened. Patient was seen by Dr. Sunshine-he stated he would be interested in HD or PD if needed-we will continue to follow with Dr. Sunshine. Patient's creatinine on admission was 4.18-peaked at 4. 4 3, was 4.33 on labs drawn today. Of note patient's albumin is 2.9. -Goals of care-CODE STATUS-conditional code-patient is on BiPAP at night-would be amenable to short-term intubation if needed. Would not want long-term intubation. No chest compressions, no defibrillation. -Shortness of breath-improving after diuresis-patient with good saturations on room air. -Lower extremity edema-new onset, patient scheduled for cardiac echo, heart function was noted to be normal per cardiology note in May 2019. -CKD stage III-now stage IV + , patient agreeable to HD-further plans per nephrology -[id number]-rqsu-nombuzkrdx, A1c 7.1 -Status post liver transplant 1994-doing well on tacrolimus and prednisone -Will continue to follow, await cardiac echo. May need to revisit goals of care if cardiac echo shows any significant changes -Discussed advance care planning with both and . -PPS 40% Allergies Allergy/AdvReac Type Severity Reaction Status Date / Time aspirin AdvReac Unknown high doses Verified 08/15/20 14:52 contrindicated d/t hx liver transplant ibuprofen AdvReac Unknown not to Verified 08/15/20 14:52 take due to transplant Home Medications Home Medications Medication Instructions Recorded Confirmed Type calcium carbonate [Calcium 600] 600 mg PO BID 01/09/19 08/15/20 History meclizine 25 mg PO DAILY PRN 01/09/19 08/15/20 History prednisone 5 mg PO QAM 01/09/19 08/15/20 History tacrolimus [Prograf] 3 mg PO QAM 01/09/19 08/15/20 History ursodiol 300 mg PO BID 01/09/19 08/15/20 History tacrolimus [Prograf] 2 mg PO QPM 02/26/19 08/15/20 History acetaminophen 500 mg capsule 500 mg PO Q4H PRN 06/19/19 08/15/20 History docusate sodium 100 mg capsule 100 mg PO QAM 06/19/19 08/15/20 History L. gasseri-B. bifidum-B longum 1 cap PO QAM 07/10/19 08/15/20 History [[facility]] lidocaine 5 % topical patch 1 patch TOP DAILY PRN 08/10/19 08/15/20 History polyethylene glycol 3350 17 gram 17 gm PO DAILY PRN 08/10/19 08/15/20 History oral powder packet calcitriol 0.5 mcg capsule 0.5 mcg PO QAM #30 cap 09/25/19 08/15/20 Rx pen needle, diabetic 32 gauge x See Rx Instructions .ROUTE 09/28/19 08/15/20 Rx 32" .COMPLEX #450 unspecified aspirin 81 mg PO QAM 03/17/20 08/15/20 History fludrocortisone 0.1 mg PO HS 03/17/20 08/15/20 History hydrocortisone 2.5 % topical cream 1 appln DC DAILY PRN #28.35 gm 03/18/20 08/15/20 Rx with perineal applicator furosemide 20 mg tablet 20 mg PO QAM PRN #10 tab 04/28/20 08/15/20 Rx insulin degludec 100 unit/mL (3 14 units SUBCUT QAM ml 04/28/20 08/15/20 History mL) subcutaneous pen metoprolol succinate 50 mg 100 mg PO BID #120 tab 05/20/20 08/15/20 Rx tablet,extended release 24 hr venlafaxine 37.5 mg 37.5 mg PO DAILY@1700 #30 cap 07/10/20 08/15/20 Rx capsule,extended release 24 hr insulin aspart U-100 100 unit/mL 30 unit SUBCUT DAILY #15 ml 07/16/20 08/15/20 Rx (3 mL) subcutaneous pen Prolia 60 mg/mL subcutaneous 60 mg SUBCUT Q6MO #1 ml NS 07/22/20 08/15/20 Rx syringe amlodipine 5 mg tablet 5 mg PO DAILY #30 tab 07/22/20 08/15/20 Rx magnesium oxide 400 mg PO DAILY #90 tab 07/23/20 08/15/20 Rx donepezil 5 mg tablet 5 mg PO HS #30 tab 08/12/20 08/15/20 Rx tamsulosin 0.4 mg capsule 0.4 mg PO DAILY #90 cap 08/12/20 08/15/20 Rx triamcinolone acetonide 0.1 % 1 applic TOPICAL BID #30 g 08/12/20 08/15/20 Rx topical cream Patient History Medical History Abscess of skin of abdomen BPH (benign prostatic hyperplasia) Cancer SKIN CANCER-BASAL CELL/SQUAMOUS CKD (chronic kidney disease) Diabetes mellitus Hypertension Pancreatitis HX S/P liver transplant Sclerosing cholangitis S/P liver transplant 1994 Stage III chronic kidney disease Surgical History Fusion of spine LUMBAR H/O exploratory laparotomy FOR HEMATOMA/DIVERTIULITIS?-02/23/19 [facility] History of appendectomy History of cholecystectomy History of colonoscopy History of esophagogastroduodenoscopy (EGD) History of herniorrhaphy X 2 History of liver biopsy History of oral surgery Posts implanted in mandible for bottom denture History of tooth extraction Transplant LIVER 1994 IN [place] ([facility]) Family History Father Family history of diabetes mellitus Myocardial infarction Heart failure Mother Dementia Denies family history of Ovarian cancer Prostate cancer Breast cancer Colorectal cancer Social History Smoking Status: Former smoker Tobacco Type: Cigarettes Cigarettes Per Day: QUIT 1971; Second Hand Exposure: No; Do You Dip or Chew Tobacco: No; Tobacco Cessation Education Requested by Patient: No Hx Alcohol Use: No Hx Substance Use: No Preferred Language: Estonian Communication Ability: Effective Market Development Director Required: No Beliefs That Will Affect Care: None marital status: Current Living Situation: Spouse current occupational status: retired Other Information That Helps Us Care for You: No Feels Safe at Home: Yes Safety Concerns: Feels Safe At This Time Dental Care, Regularly: Yes Seatbelt Use: always Sunscreen Use: Yes Assistive Devices: Walker Review of Systems Review of Systems: Patient denies fever, chills, chest pain, palpitations, or abdominal pain Positive for fatigue, shortness of breath, weakness and weight loss Physical Exam Physical Exam: PE: Patient awake and alert, drowsy at times during visit HEENT: [place] even with hearing aids, EOMI Respirations: Clear breath sounds bilaterally CV: Regular rate, occasional irregular rhythm, lower extremity edema resolved Abdomen: Not distended Extremities: Thin, cachectic Neuro: Alert and oriented x4 Results & Data ([facility]) Vital Signs (Past 12 Hours) Vital Signs Temp Pulse Pulse Resp BP BP Pulse Ox 08/18/20 11:00 77 18 160/100 H 164/104 H 94 08/18/20 08:00 89 163/100 H 08/18/20 07:52 98.4 F 58 L 20 170/90 H 95 08/18/20 07:00 64 08/18/20 03:57 97.9 F 63 18 155/81 H 94 PG Care Time/CCT Total # of Minutes Spent Total Time Spent with Patient: Total time spent 70 minutes with greater than 50% of the time spent at bedside discussing goals of care with patient and Coding Level of Care Code 22278 Inpt Consult Level 3 Diagnoses Goals of care, counseling/discussion Z71.89 Dyspnea R06.00 Fatigue R53.83 Bilateral edema of lower extremity R60.0 CKD (chronic kidney disease), stage IV N18.4 Type 2 DM with CKD stage 3 and hypertension E11.22; I12.9; N18.30 Obstructive sleep apnea G47.33 S/P liver transplant Z94.4 Time Spent (min) 70
--- NOTE | 2020-08-18 13:40 | Cardiology Progress Note ---
Date of Service August 18, 2020 Assessment & Plan (1) Bilateral edema of lower extremity: -improving. -would continue diuretics. -significant renal insufficiency noted and likely contributing to hypervolemia. (2) PAF (paroxysmal atrial fibrillation): -paroxysmal atrial fibrillation/flutter just recently diagnosed. -rate well controlled on metoprolol succinate. -could consider use of low-dose Eliquis. (3) Hypertension: -continue metoprolol succinate and amlodipine. -hopefully diuresis will improve his blood pressure. Admission and Anticipated Discharge Date Admission Date: August 15, 2020 Subjective The patient is resting comfortably in bed without complaints of chest pain, dyspnea, or palpitations. Physical Exam Physical Exam: In general this is a well-developed well-nourished white male in no acute distress. HEENT exam is negative. Neck is supple with full carotid upstrokes. There no carotid bruits. No JVD. Is no thyromegaly. Cardiovascular exam reveals a regular rhythm with a normal S1 and S2. No S3, S4, or murmurs are noted. Lungs are clear without rales, rhonchi, or wheezes. Abdomen is benign without bruits. Extremities reveal intact radial artery and posterior tibial pulses bilaterally. There is 1 to 2+ pedal and pretibial edema.. Results & Data ([facility]) Vital Signs (Past 12 Hours) Vital Signs Temp Pulse Pulse Resp BP BP Pulse Ox 08/18/20 11:00 77 18 160/100 H 164/104 H 94 08/18/20 08:00 89 163/100 H 08/18/20 07:52 36.9 C 58 L 20 170/90 H 95 08/18/20 07:00 64 08/18/20 03:57 36.6 C 63 18 155/81 H 94 Diagnostic Findings traffic monitor specialist notes paroxysms of atrial flutter. PG Care Time/CCT Total # of Minutes Spent Total Time Spent with Patient: Total time spent is greater than 50% in coordination of care (as documented) at patient's floor/unit and/or counseling patient: Coding Level of Care Code 55226 Subseq Hosp Care Lvl 3 Diagnoses Bilateral edema of lower extremity R60.0 PAF (paroxysmal atrial fibrillation) I48.0 Hypertension I10 Hypertension type: unspecified (1) Hypertension Hypertension type: unspecified Qualified Code(s): I10 - Essential (primary) hypertension
[2020-08-18] MEDS: VENLAFAXINE HCL XR 37.5 MG CAPXR PO SCH (17:23)
[2020-08-18] MEDS ORDERED: Nursing to Pharmacy Communication SCH (19:00)
[2020-08-18] MEDS: DONEPEZIL HCL 5 MG TAB PO SCH (20:00)
[2020-08-18] MEDS ORDERED: amLODIPine BESYLATE 5 MG TAB PO SCH (21:00)
--- NOTE | 2020-08-18 21:06 | Hospitalist Progress Note ---
Date of Service August 18, 2020 Assessment & Plan (1) Generalized weakness: Lawrence is an 80-year-old male with a past medical history of liver transplant due to a sending cholangitis with subsequent development of end-stage renal disease nonoliguric, sleep apnea, aortic valve insufficiency, depression, and diabetes who presents to the hospital with 4 months of progressive shortness of breath, fatigue, and intermittent hallucinations who was prompted to present to the ER after a recent Holter showed evidence of atrial fibrillation. Edema/shortness of breath Multifactorial. Some underlying venous stasis and baseline CKD/ESRD nonoliguric, patient followed by cardiology and may have underlying CHF exacerbated by A. fib Chest x-ray: Pulmonary vascular congestion and edema, right-sided effusion, bibasilar atelectasis BNP: 13 K Creatinine as below, normal ratio will continue diuretics IV BID. Nephro consulted, cardiology consulted Diuresis with caution given unclear baseline creatinine and underlying ESRD -tolerating treatment. 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 Ruled out CHF, acute exacerbation potentially precipitated by pAfib Patient in normal sinus rhythm on admission Recent Holter monitor showed A. fib not on anticoagulation Patient told to avoid aspirin, ibuprofen, and thinners due to his transplant status in the past. [id number] 4+. Recommend anticoagulation prior to discharge. New systolic murmur appreciated, -Echo completed, does not show signs of systolic heart failure Troponin normal on admission, clinically without chest pain History of fatigue, confusion, visual hallucinations Patient endorses difficulty sleeping without his BiPAP, intermittent visual hallucinations that he recognizes are not there Recent evaluation including MRI showed no intracranial abnormalities CO2 mildly elevated on admitting blood work BiPAP as below overnight, follow clinically History of unstable potassium Patient with unstable potassium following his liver transplant Avoid any RAAS agents - Continue florinef daily - BMP daily - K wnl on admit Type 2 diabetes mellitus with nephropathy Hold home insulin degludec Insulin glargine continue sliding scale. CKD STAGE 4. Baseline creatinine 1 year ago approximately 2, appears recently increased to around 4 Creatinine on admission 4.18 Received Bumex as above Nephro consulted - Patient has had difficult to control potassium swings, see above NAM (acute kidney injury) APPRECIATE INPUT FROM NEPHRO: Clinical presentation concerning for progression of CKD. Imaging has not demonstrated obstructive nephropathy. Renal arteries patent. Urine microscopy acellular. Medications appropriate for kidney function. Has diuresed well with Bumex 1 mg daily. I switched back to home dose of furosemide 20 mg today. Monitor kidney function with daily metabolic profile. Document I/O's. Fludrocortisone Rx'd for CNI associated hyperkalemia has been held. K+ and other electrolytes are acceptable. There is no indication to restart at this time. 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 No transaminitis on admission JANES -Pt not doign well on CPAP at home, was under evaluation for ASV/BiPAP - BiPAP 08/11, adjust as needed - VBG pending as above Osteoporosis, history of calcium derangement Followed by endocrinology outpatient DVT prophylaxis: Heparin 5000 twice daily, SCDs Diet: Heart healthy Disposition: Medical surgical with telemetry CODE STATUS: DNR, patient okay with trial of intubation if needed for respiratory status. Discussed with patient and at bedside (2) SOB (shortness of breath): (3) BPH (benign prostatic hyperplasia): (4) Type 2 DM with CKD stage 3 and hypertension: (5) Complex sleep apnea syndrome: (6) Atrial fibrillation: (7) S/P liver transplant: Coordinator: Anjelica Moulton ([phone]) (8) Dyspnea: Admission and Anticipated Discharge Date Admission Date: August 15, 2020 Subjective Patient reports no new symptoms. Review of Systems 2 Review of Systems: All systems reviewed & are unremarkable except as noted in HPI & below Physical Exam Physical Exam: General: A&Ox3. NAD. Cooperative. HEENT: Atraumatic, normocephalic. Pupils equal and responsive to light and accommodation. Pulm: Bibasilar crackles, no rales. Symmetrical chest rise. No increase work of breathing. No respiratory distress. Cardiac: Regular rate and rhythm, systolic murmur present. Radial pulses intact and symmetrical. JVD is present 2 cm above the clavicle with hepatojugular reflex. Abdominal: Nontender, nondistended, soft. BS present. Extremities: Moves all extremities equally, state's attorney strength, ankle plantar flexion/dorsiflexion, hip flexion 4+/5 bilateral. Sensation is soft touch intact in fingers and toes and symmetrical without deficit. Pitting edema is present through the ankles and mid calf bilaterally. No calf tenderness, Homans negative. Results & Data Results & Data ([facility]) Vital Signs (Past 12 Hours) Vital Signs Temp Pulse Pulse Resp BP BP Pulse Ox 08/18/20 20:06 36.4 C L 64 18 175/85 H 94 08/18/20 15:00 36.3 C L 74 20 173/89 H 171/85 H 97 08/18/20 14:20 65 08/18/20 11:00 77 18 160/100 H 164/104 H 94 PG Care Time/CCT Total # of Minutes Spent Total Time Spent with Patient: Total time spent is greater than 50% in coordination of care (as documented) at patient's floor/unit and/or counseling patient: Coding Level of Care Code 72287 Subseq Hosp Care Lvl 3 Diagnoses Generalized weakness R53.1 SOB (shortness of breath) R06.02 BPH (benign prostatic hyperplasia) N40.0 Type 2 DM with CKD stage 3 and hypertension E11.22; I12.9; N18.30 Complex sleep apnea syndrome G47.31 Atrial fibrillation I48.91 S/P liver transplant Z94.4 Dyspnea R06.00 Time Spent (min) 35
[2020-08-19] MEDS ORDERED: MELATONIN 3 MG TAB PO PRN (01:41)
[2020-08-19 08:54] LABS: Albumin Level 3.1 gm/dl (3.4-5.0); BUN Creatinine Ratio 14.5 (10-20); Creatinine Clr Calc Pharmacy 13.1 ml/min; Est GFR (African American) 13.7; Est GFR (Non-African American) 11.8; Potassium 3.5 mmol/L (3.5-5.1)
[2020-08-19 08:56] LABS: Phosphorus 3.7 mg/dl (2.5-4.9)
[2020-08-19] MEDS ORDERED: TACROLIMUS 1 MG CAP PO SCH (09:00)
[2020-08-19] MEDS: INSULIN ASPART 100 UNITS/ML 3 ML PEN SC SCH ×2 (09:23→12:21)
[2020-08-19] MEDS: METOPROLOL SUCC 50MG EXT REL TAB PO SCH (09:25)
[2020-08-19] MEDS: ASPIRIN 81 MG ECTAB PO SCH (09:26)
[2020-08-19] MEDS: predniSONE 5 MG TAB PO SCH (09:26)
[2020-08-19] MEDS: MAGNESIUM OXIDE 400 MG TAB PO SCH (09:26)
[2020-08-19] MEDS: HEPARIN SOD 5,000 UNIT/0.5 ML VIAL SQ SCH (09:26)
[2020-08-19] MEDS: FUROSEMIDE 20 MG TAB PO SCH (09:26)
[2020-08-19] MEDS: CALCITRIOL 0.25 MCG CAPSULE PO SCH (09:26)
[2020-08-19] MEDS: INSULIN GLARGINE SOLOSTAR 100 UNITS/ML 3 ML PEN SC SCH (09:27)
[2020-08-19] MEDS: ursodioL 300 MG CAP PO SCH (09:27)
[2020-08-19] MEDS ORDERED: APIXABAN 2.5 MG TAB PO SCH (10:00)
--- NOTE | 2020-08-19 10:42 | Cardiology Progress Note ---
Date of Service August 19, 2020 Assessment & Plan (1) Bilateral edema of lower extremity: -essentially resolved. -continues on low-dose Lasix per Dr. Rider. -significant renal insufficiency noted and likely contributing to hypervolemia. (2) PAF (paroxysmal atrial fibrillation): -paroxysmal atrial fibrillation/flutter just recently diagnosed. -rate well controlled on metoprolol succinate. -will start low-dose Eliquis. (3) Hypertension: -continue metoprolol succinate and amlodipine. -hopefully diuresis will improve his blood pressure. (4) Pericardial effusion: -small, chronic pericardial effusion unchanged on current echocardiogram. Admission and Anticipated Discharge Date Admission Date: August 15, 2020 Subjective The patient is resting comfortably in bed without complaints of chest pain, dyspnea, palpitations. We have discussed his diagnosis atrial fibrillation/flutter and the need for long-term anticoagulation. Physical Exam Physical Exam: In general this is a well-developed well-nourished white male in no acute distress. HEENT exam is negative. Neck is supple with full carotid upstrokes. There no carotid bruits. No JVD. Is no thyromegaly. Cardiovascular exam reveals a regular rhythm with a normal S1 and S2. No S3, S4, or murmurs are noted. Lungs are clear without rales, rhonchi, or wheezes. Abdomen is benign without bruits. Extremities reveal intact radial artery and posterior tibial pulses bilaterally. There is trace pedal edema. Results & Data ([facility]) Vital Signs (Past 12 Hours) Vital Signs Temp Pulse Pulse Resp BP BP Pulse Ox 08/19/20 08:00 36.8 C 61 83 18 162/94 H 94 08/19/20 03:22 36.5 C 86 18 156/85 H 95 08/19/20 02:16 84 18 98 08/18/20 23:02 36.6 C 86 18 155/106 H 98 Diagnostic Findings campus monitor notes paroxysms of atrial flutter, rate controlled. PG Care Time/CCT Total # of Minutes Spent Total Time Spent with Patient: Total time spent is greater than 50% in coordination of care (as documented) at patient's floor/unit and/or counseling patient: Coding Level of Care Code 91683 Subseq Hosp Care Lvl 3 Diagnoses Bilateral edema of lower extremity R60.0 PAF (paroxysmal atrial fibrillation) I48.0 Hypertension I10 Hypertension type: unspecified Pericardial effusion I31.3 (1) Hypertension Hypertension type: unspecified Qualified Code(s): I10 - Essential (primary) hypertension
--- NOTE | 2020-08-19 10:55 | XCELERA ---
[id number]
--- NOTE | 2020-08-25 23:15 | Discharge Summary ---
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 Lawrence is seen at the bedside with his Dhara. They report that he began to clinically worsen 4 months ago in April. He began developing bilateral lower extremity swelling, increased fatigue, difficulty laying down flat when not wearing his BiPAP, and decreased exercise tolerance going from walking around the block or quarter mile to not being able to walk the length of a driveway due to fatigue and shortness of breath. He denies any recent cold-like symptoms, and denies fever, chills, sweats, productive cough, dysuria, chest pain, chest pressure, palpitations. He is followed by cardiology and nephrology, reports that he was put on Lasix 20 mg in April but that this has never made him pee more. He is followed for complex sleep apnea syndrome by Dr. Lima who had been adjusting CPAP versus ASV which the patient reports he is unable to sleep without and recently had been undergoing evaluation for BiPAP. He has had recent hallucinations of girls and bugs on the floor intermittently around sleep, he had a recent brain MRI which did not show any acute intracranial abnormalities.He reports that due to symptoms he had been placed on a Holter monitor. They were called by the Holter monitor company after being on the Holter from August 11- and were told that he had shown some A. fib, and should present to the emergency department for evaluation. Medical history: Reviewed Surgical history: Reviewed Allergies: Reviewed Family history: Noncontributory Social: No tobacco use, no alcohol use. Lives at home with his normally able to ambulate independently. CODE STATUS: Conditional code. No compressions. Willing to have a trial of intubation if needed. Discussed at bedside with patient and his . Principal Diagnosis generalized weakness Discharge Exam General: A&Ox3. NAD. Cooperative. HEENT: Atraumatic, normocephalic. Pupils equal and responsive to light and accommodation. Pulm: Bibasilar crackles, no rales. Symmetrical chest rise. No increase work of breathing. No respiratory distress. Cardiac: Regular rate and rhythm, systolic murmur present. Radial pulses intact and symmetrical. JVD is present 2 cm above the clavicle with hepatojugular reflex. Abdominal: Nontender, nondistended, soft. BS present. 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 Sensation is soft touch intact in fingers and toes and symmetrical without deficit. Pitting edema is present through the ankles and mid calf bilaterally. No calf tenderness, Homans negative. 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 Edema/shortness of breath Multifactorial. Some underlying venous stasis and baseline CKD/ESRD nonoliguric, patient followed by cardiology and may have underlying CHF exacerbated by A. fib Chest x-ray: Pulmonary vascular congestion and edema, right-sided effusion, bibasilar atelectasis BNP: 13 K Creatinine as below, normal ratio used diuretics IV BID. Nephro consulted, cardiology consulted Diuresis with caution given unclear baseline creatinine and underlying ESRD -tolerating treatment. -Patient has been improving, appears main helper driver is his CKD. Ruled out CHF, acute exacerbation potentially precipitated by pAfib Patient in normal sinus rhythm on admission Recent Holter monitor showed A. fib not on anticoagulation Patient told to avoid aspirin, ibuprofen, and thinners due to his transplant status in the past. [id number] 4+. Recommend anticoagulation ELIQUIS at discharge. New systolic murmur appreciated, -Echo completed, does not show signs of systolic heart failure Troponin normal on admission, clinically without chest pain History of fatigue, confusion, visual hallucinations Patient endorses difficulty sleeping without his BiPAP, intermittent visual hallucinations that he recognizes are not there Recent evaluation including MRI showed no intracranial abnormalities CO2 mildly elevated on admitting blood work BiPAP as below overnight, follow clinically History of unstable potassium Patient with unstable potassium following his liver transplant Avoid any RAAS agents - Continue florinef daily - BMP daily - K wnl on admit Type 2 diabetes mellitus with nephropathy Hold home insulin degludec Insulin glargine continue sliding scale. CKD STAGE 4. Baseline creatinine 1 year ago approximately 2, appears recently increased to around 4 Creatinine on admission 4.18 Received Bumex as above Nephro consulted - Patient has had difficult to control potassium swings, see above NAM (acute kidney injury) APPRECIATE INPUT FROM NEPHRO: Clinical presentation concerning for progression of CKD. Imaging has not demonstrated obstructive nephropathy. Renal arteries patent. Urine microscopy acellular. Medications appropriate for kidney function. Has diuresed well with Bumex 1 mg daily. I switched back to home dose of furosemide 20 mg today. Monitor kidney function with daily metabolic profile. Document I/O's. Fludrocortisone Rx'd for CNI associated hyperkalemia has been held. K+ and other electrolytes are acceptable. There is no indication to restart at this time. 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 No transaminitis on admission JANES -Pt not doign well on CPAP at home, was under evaluation for ASV/BiPAP - BiPAP 08/11, adjust as needed - VBG pending as above Osteoporosis, history of calcium derangement Followed by endocrinology outpatient DVT prophylaxis: Heparin 5000 twice daily, SCDs Diet: Heart healthy Disposition: Medical surgical with telemetry CODE STATUS: DNR, patient okay with trial of intubation if needed for respiratory status. Discussed with patient and at bedside (2) SOB (shortness of breath): (3) BPH (benign prostatic hyperplasia): (4) Type 2 DM with CKD stage 3 and hypertension: (5) Complex sleep apnea syndrome: (6) Atrial fibrillation: (7) S/P liver transplant: Coordinator: Anjelica Moulton ([phone]) (8) Dyspnea: Total Time Total Time Spent Total Time Spent (In Minutes): 32 Total Time Includes: Examination of the Patient, Discharge Planning and Medication Reconciliation Discharge Plan Discharge Items Patient Disposition: Home - Self-Care Reason For Visit: FATIGUE, AFIB, CHF Discharge Diagnosis: Paroxysmal A. Fib Activity: Resume your previous activity Non-emergency contact: Primary Care Provider Call non-emergency contact if: you have any medication questions Follow-up/Referrals: Esthela Pritchard MD [Primary Care Provider] - Diet: Carb Consistent or DM2 and Heart Healthy Addtl Attending Provider Instructions: You have been hospitalized for an acute medical problem. During your stay at [facility], we have made an effort to correct the problem that brought you to the hospital while keeping you as comfortable as possible. Medications were used to bring your condition under control and your discharge instructions will include directions for any medications you should take after leaving the hospital. Please make sure you see your Primary Care Provider as part of your follow up plan. Check BMP in 1 week. Pending Studies at Discharge: No Stand-Alone Forms: My [facility], Smoking Cessation Medications and DC Order Prescriptions: New tacrolimus 1 mg Capsule 2 mg PO BID Qty: 120 RF: 0 Continued calcitriol 0.5 mcg capsule 0.5 mcg PO QAM Qty: 30 RF: 5 pen needle, diabetic [Unifine Pentips] 32 gauge x 5/32" needle See Rx Instructions .ROUTE .COMPLEX Qty: 450 RF: 0 metoprolol succinate 50 mg tablet extended release 24 hr 100 mg PO BID Qty: 120 RF: 5 venlafaxine 37.5 mg capsule,extended release 24hr 37.5 mg PO DAILY@1700 Qty: 30 RF: 2 insulin aspart U-100 [Novolog Flexpen U-100 Insulin] 100 unit/mL (3 mL) insulin pen 30 unit subcut DAILY Qty: 15 RF: 5 Prolia 60 mg/mL syringe 60 mg SUBCUT Q6MO Qty: 1 RF: 1 magnesium oxide 400 mg magnesium tablet 400 mg PO DAILY Qty: 90 RF: 1 hydrocortisone [Anusol-HC] 2.5 % cream with perineal applicator 1 appln DC DAILY PRN (Reason: hemorrhoids) Qty: 28.35 RF: 0 amlodipine 5 mg tablet 5 mg PO DAILY Qty: 30 RF: 2 docusate sodium [Colace] 100 mg capsule 100 mg PO QAM RF: 0 acetaminophen 500 mg capsule 500 mg PO Q4H PRN (Reason: Pain) RF: 0 lidocaine 5 % adhesive patch,medicated 1 patch TOP DAILY PRN (Reason: Pain) RF: 0 polyethylene glycol 3350 17 gram powder in packet 17 gm PO DAILY PRN (Reason: Constipation) RF: 0 tamsulosin [Flomax] 0.4 mg capsule 0.4 mg PO DAILY Qty: 90 RF: 3 triamcinolone acetonide 0.1 % cream 1 applic topical BID Qty: 30 RF: 3 prednisone 5 mg Tablet 5 mg PO QAM RF: 0 calcium carbonate [Calcium 600] 600 mg calcium (1,500 mg) Tablet 600 mg PO BID RF: 0 meclizine 25 mg Tablet 25 mg PO DAILY PRN (Reason: VERTIGO) RF: 0 ursodiol 300 mg Capsule 300 mg PO BID RF: 0 Tonchidot 1.5 billion cell Capsule 1 cap PO QAM RF: 0 aspirin 81 mg Tablet,Delayed Release (Dr/Ec) 81 mg PO QAM RF: 0 Changed furosemide [Lasix] 20 mg tablet 20 mg PO QAM Qty: 30 RF: 2 Discontinued tacrolimus [Prograf] 1 mg Capsule 3 mg PO QAM RF: 0 tacrolimus [Prograf] 1 mg Capsule 2 mg PO QPM RF: 0 fludrocortisone 0.1 mg tablet 0.1 mg PO HS RF: 0 Tresiba FlexTouch U-100 100 unit/mL (3 mL) insulin pen 14 units subcut QAM RF: 0 No Action Tresiba FlexTouch U-100 100 unit/mL (3 mL) insulin pen 12 unit subcut QAM Qty: 15 RF: 3 Eliquis 2.5 mg tablet 2.5 mg PO BID Qty: 60 RF: 5 donepezil 10 mg tablet 10 mg PO DAILY Qty: 30 RF: 5 Discharge Orders: Discharge Order (Routine); Ordered 08/19/20 Ordered By: Marcelino Mcneal Admission Data Admit Date/Time: 08/15/20 19:52 Attending Provider: Marcelino Mcneal Admit Provider: Jose Barclay Primary Care Provider: Esthela Pritchard Other Providers: Marcelino Mcneal ; Abe Madrigal ; Justyn Rider ; Claudia Baron Other Interventions: Discharge Summary Assessment (RN) Last Done: 08/19/20 15:08 Coding Level of Care Code D/C Day Management >30 mins Diagnoses Generalized weakness R53.1 SOB (shortness of breath) R06.02 BPH (benign prostatic hyperplasia) N40.0 Type 2 DM with CKD stage 3 and hypertension E11.22; I12.9; N18.30 Complex sleep apnea syndrome G47.31 Atrial fibrillation I48.91 S/P liver transplant Z94.4 Dyspnea R06.00
--- NOTE | 2020-08-30 10:16 | Coding Query ---
CHRONIC KIDNEY DISEASE To promote full compliance with coding requirements relating to patient care, physician participation is requested in all cases of men's furnishings salesperson uncertainty. Please assist us with the question(s) below: Coding Question(s): The record reflects the following clinical findings: There is documentation of ESRD, CKD 3 and CKD 4. Please clarify below, in your clinical opinion. Please specify the known or suspected type by placing an "X" within the parenthesis (x). If other, please document type. Please document Staging if known: ( ) Stage I >90 Kidney damage with normal or elevated GFR. ( ) Stage II 60-89 Kidney damage with mildly decreased kidney function ( ) Stage III 30-59 Moderately decreased kidney function (X) Stage IV 15-29 Severely decreased kidney function ( ) Stage V <15 Renal failure (or dialysis) ( ) End Stage ( ) Unknown Thank you Lori Bañuelos [facility] CENTERBronwyn
--- NOTE | 2020-08-30 10:18 | Coding Query ---
PRESENT ON ADMISSION QUERY To promote full compliance with coding requirements relating to pateint care, physician participation is requested in all cases of orthopedic coder uncertainty. Please assist us with the question(s) below: Please place an X within the parenthesis (x). The following diagnosis(es) listed in this patient's medical record require physician assistance to determine if they were present on admission (POA) or not. Please advise for each diagnosis whether it was present on admission, not present on admission, or if it was clinically undetermined. 1. ACUTE KIDNEY INJURY (documentation begins on Nephrology Consultation on 08/16/20) (x ) Present On Admission ( ) Not Present On Admission ( ) Clinically Undetermined Thank you Lori Bañuelos *Definition of the present on admission (POA)-Present on admission is defined as present at the time the order for inpatient admission occurs. Conditions that develop during an outpatient encounter prior to a written order for inpatient admission (including emergency department, observation, or outpatient surgery) are considered present on admission. TAYLAD
--- NOTE | 2020-08-30 10:24 | Coding Query ---
CODING QUERY To promote full compliance with coding requirements relating to patient care, provider participation is requested in all cases of digitizer uncertainty. Please assist us with the question(s) below: Coding Question(s): The H&P documents the patient was admitted for fluid overload and CKD and the Cardiology Consultation documents bilateral edema of lower extremity secondary to hypervolemia would continue intravenous diuretics significant renal insufficiency noted and likely contributing to hypervolemia. Hypervolemia and Fluid Overload are not documented on the Discharge Summary. Please specify below, in your clinical opinion, regarding hypervolemia/fluid overload. ( x ) Hypervolemia/Fluid Overload treated ( ) Hypervolemia/Fluid Overload ruled out ( ) Other: Please Specify Physician's Response(s): Thank you Lori Bañuelos Principal Diagnosis: "that condition established after study, to be chiefly responsible for occasioning the admission of the patient to the hospital for care." Co-Existing Principal Diagnosis: "when two or more diagnoses equally meet the criteria for principal diagnosis as determined by the circumstances of admission, diagnostic work up, and/or therapy provided, and the Alphabetic Index, Tabular List, or another coding guideline does not provide sequencing direction, any one of the diagnoses may be sequenced first." "When the physician has documented what appears to be a current diagnosis in the body of the record, but has not included the diagnosis in the final diagnostic statement, the physician should be asked whether the diagnosis should be added." (Source Coding Clinic 2 QTR90. p3-4) DOMINIC
== END 2020-08-19 16:20 | disposition home or self-care (01) | DRG 683 ==
LOC: ED 14:21 → 2N 19:52
DX: R44.1 Visual hallucinations; Z79.4 Long term (current) use of insulin; N17.9 Acute kidney failure, unspecified; Z79.52 Long term (current) use of systemic steroids; Z79.899 Other long term (current) drug therapy; R53.1 Weakness; E87.79 Other fluid overload; I47.1 Supraventricular tachycardia; E87.8 Other disorders of electrolyte and fluid balance, not elsewhere classified; G47.33 Obstructive sleep apnea (adult) (pediatric); Z79.82 Long term (current) use of aspirin; Z51.81 Encounter for therapeutic drug level monitoring; Z87.891 Personal history of nicotine dependence; N40.0 Benign prostatic hyperplasia without lower urinary tract symptoms; I48.0 Paroxysmal atrial fibrillation; I12.9 Hypertensive chronic kidney disease with stage 1 through stage 4 chronic kidney disease, or unspecified chronic kidney disease; T38.0X5A Adverse effect of glucocorticoids and synthetic analogues, initial encounter; D84.821 Immunodeficiency due to drugs; I87.2 Venous insufficiency (chronic) (peripheral); Z66 Do not resuscitate; Z83.3 Family history of diabetes mellitus; E87.5 Hyperkalemia; Z94.4 Liver transplant status; Z82.49 Family history of ischemic heart disease and other diseases of the circulatory system; T45.1X5A Adverse effect of antineoplastic and immunosuppressive drugs, initial encounter; N18.4 Chronic kidney disease, stage 4 (severe); R01.1 Cardiac murmur, unspecified; M81.0 Age-related osteoporosis without current pathological fracture; E11.22 Type 2 diabetes mellitus with diabetic chronic kidney disease; E11.21 Type 2 diabetes mellitus with diabetic nephropathy; Z88.6 Allergy status to analgesic agent; I31.3 Pericardial effusion (noninflammatory)

== ENCOUNTER 2020-09-15 23:04 | Inpatient (IN) ==
[2020-09-15] MEDS ORDERED: ONDANSETRON INJ 2 MG/ML 2 ML VIAL IV STA (23:34)
[2020-09-15] MEDS ORDERED: FAMOTIDINE 20MG/5ML IV PUSH IV STA (23:34)
--- NOTE | 2020-09-15 23:39 | Emergency Department Note ---
History of Present Illness General Chief complaint: Vomiting Stated complaint: WEAK, DIARRHEA, VOMITING Time Seen by Provider: 09/15/20 23:12 Source: patient Mode of arrival: ambulatory Limitations: no limitations History of Present Illness Provider complaint: vomiting, weakness Onset (ago): hour(s) Maximum Pain Intensity: 3 Associated symptoms: + loss of appetite, + malaise, + nausea/vomiting and + weakness; no fever/chills This is an 80-year-old male with a past medical history including a remote liver transplant and recent admission for congestive heart failure who presents due to increased weakness and vomiting this evening. Patient was here undergoing a sleep study when he began to become more nauseated and vomited multiple times. No blood was noted. Patient and state that since his most recent admission last month for congestive heart failure, he has had daily diarrhea with intermittent blood. They did see Dr. Lynn as an outpatient, and was sent for labs and an x-ray today. She states they do not know the results of those. She states in discussion with Dr. Douglass the next potential studies they were considering were stool studies. states they did add a magnesium to his medication regimen however no other recent changes, no dietary changes. No history of IBS or IBD. She states he has intermittently seen blood with the bowel movements however they attributed those to hemorrhoidal irritation given the 8-9 episodes of diarrhea daily. Patient does admit to getting intermittent central abdominal pains that are brief and self-limiting, and typically occur before an episode of diarrhea. Patient admits to increased weakness. Patient does have a history of chronic kidney disease, and the next appointment with Dr. Rider is on September 26 to discuss preparation for possible eventual dialysis. Patient denies fevers or chills, cough or colds cold symptoms. Review of EMR, labs from earlier today as well as an outpatient x-ray were noted. X-ray reassuring, however labs showed increased creatinine compared to prior. Stool culture noted from 09/08, no stool for C. difficile was seen. Pt seen during a time of high acuity and national emergency pandemic while wearing PPE. Home Medications Home Medications Medication Instructions Recorded Confirmed Type calcium carbonate [Calcium 600] 600 mg PO BID 01/09/19 09/16/20 History meclizine 25 mg PO DAILY PRN 01/09/19 09/16/20 History prednisone 5 mg PO QAM 01/09/19 09/16/20 History ursodiol 300 mg PO BID 01/09/19 09/16/20 History docusate sodium 100 mg capsule 100 mg PO QAM 06/19/19 09/16/20 History [facility] 1 cap PO QAM 07/10/19 09/16/20 History lidocaine 5 % topical patch 1 patch TOP DAILY PRN 08/10/19 09/16/20 History polyethylene glycol 3350 17 gram 17 gm PO DAILY PRN 08/10/19 09/16/20 History oral powder packet calcitriol 0.5 mcg capsule 0.5 mcg PO QAM #30 cap 09/25/19 09/16/20 Rx aspirin 81 mg PO QAM 03/17/20 09/16/20 History hydrocortisone 2.5 % topical cream 1 appln W[place] DAILY PRN #28.35 gm 03/18/20 09/16/20 Rx with perineal applicator metoprolol succinate 50 mg 100 mg PO BID #120 tab 05/20/20 09/16/20 Rx tablet,extended release 24 hr venlafaxine 37.5 mg 37.5 mg PO DAILY@1700 #30 cap 07/10/20 09/16/20 Rx capsule,extended release 24 hr insulin aspart U-100 100 unit/mL 30 unit SUBCUT DAILY #15 ml 07/16/20 09/16/20 Rx (3 mL) subcutaneous pen Prolia 60 mg/mL subcutaneous 60 mg SUBCUT Q6MO #1 ml NS 07/22/20 09/16/20 Rx syringe amlodipine 5 mg tablet 5 mg PO DAILY #30 tab 07/22/20 09/16/20 Rx tamsulosin 0.4 mg capsule 0.4 mg PO DAILY #90 cap 08/12/20 09/16/20 Rx triamcinolone acetonide 0.1 % 1 applic TOPICAL BID #30 g 08/12/20 09/16/20 Rx topical cream furosemide [Lasix] 20 mg PO QAM #30 tab 08/19/20 09/16/20 Rx tacrolimus 2 mg PO BID #120 cap 08/19/20 09/16/20 Rx apixaban 2.5 mg tablet 2.5 mg PO BID #60 tab 08/21/20 09/16/20 Rx donepezil 10 mg tablet 10 mg PO DAILY #30 tab 08/21/20 09/16/20 Rx menthol 0.44 %-zinc oxide 20.6 % 1 applic TOPICAL QID PRN #113 g 09/02/20 09/16/20 Rx topical ointment OneTouch Delica Lancets 33 gauge #300 ea NS 09/12/20 09/15/20 Rx OneTouch Verio test strips #300 ea NS 09/12/20 09/15/20 Rx insulin degludec 100 unit/mL (3 12 unit SUBCUT QAM #15 ml 09/12/20 09/16/20 Rx mL) subcutaneous pen magnesium gluconate 27.5 mg 200 mg PO DAILY tab 09/12/20 09/16/20 History magnesium (500 mg) tablet denosumab [Prolia] 60 mg SUBCUT .Q 6 MONTHS 09/16/20 09/16/20 History fludrocortisone 0.1 mg PO DAILY 09/16/20 09/16/20 History Allergies Allergy/AdvReac Type Severity Reaction Status Date / Time aspirin AdvReac Unknown high doses Verified 09/15/20 14:31 contrindicated d/t hx liver transplant ibuprofen AdvReac Unknown not to Verified 09/15/20 14:31 take due to transplant Past Med/Surg History Medical History Abscess of skin of abdomen BPH (benign prostatic hyperplasia) Bright red rectal bleeding Cancer SKIN CANCER-BASAL CELL/SQUAMOUS Diabetes mellitus Dyspnea Hypertension Lower extremity edema Pancreatitis HX S/P liver transplant Sclerosing cholangitis S/P liver transplant 1994 Vitamin D deficiency Surgical History Fusion of spine LUMBAR H/O exploratory laparotomy FOR HEMATOMA/DIVERTIULITIS?-02/23/19 [facility] History of appendectomy History of cholecystectomy History of colonoscopy History of esophagogastroduodenoscopy (EGD) History of herniorrhaphy X 2 History of liver biopsy History of oral surgery Posts implanted in mandible for bottom denture History of tooth extraction Transplant LIVER 1994 IN [place] ([facility]) Family History Father Family history of diabetes mellitus Myocardial infarction Heart failure Mother Dementia Denies family history of Ovarian cancer Prostate cancer Breast cancer Colorectal cancer Social History Smoking Status: Never smoker Tobacco Type: Cigarettes Cigarettes Per Day: QUIT 1971; Second Hand Exposure: No; Hx Alcohol Use: No Hx Substance Use: No Preferred Language: Maldivian Communication Ability: Effective Flight Purser Required: No Beliefs That Will Affect Care: None marital status: Current Living Situation: Spouse current occupational status: retired Feels Safe at Home: Yes Dental Care, Regularly: Yes Seatbelt Use: always Sunscreen Use: Yes Assistive Devices: CPAP, Glasses and Hearing Aid - Bilateral Review of Systems See HPI for pertinent positives & negatives. and A total of 10 systems reviewed and were otherwise negative Physical Exam Vital Signs Vital Signs - 24 hr 09/15/20 23:07 09/16/20 01:50 Temperature 36.4 C L Temperature Source Oral Pulse Rate 89 Pulse Rate [Right Finger] 100 H Pulse Rhythm [Right Finger] Irregular Respiratory Rate 20 18 Respiratory Effort / Characteristics Non-Labored Spontaneous Non-Labored Spontaneous Respiratory Depth Normal Normal Blood Pressure 181/99 H Blood Pressure [Left Arm] 137/93 Blood Pressure Mean 126 Blood Pressure Mean [Left Arm] 107 Pulse Oximetry 97 100 Oxygen Delivery Method Room Air Room Air Sepsis Recent Fever Within 48 Hours No Sepsis New/Unexplained Change in Mental Status No Sepsis Action Taken by Nursing No Action Required GENERAL: alert, ill appearing, well nourished, no distress, non-toxic EYE EXAM: normal conjunctiva, PERRL and EOM's grossly intact OROPHARYNX: no exudate, no erythema, lips, buccal mucosa, and tongue normal and mucous membranes are moist NECK: supple, no nuchal rigidity, no adenopathy, non-tender LUNGS: Clear to auscultation. Normal chest wall mechanics, no w/r/r HEART: no murmurs, S1 normal and S2 normal ABDOMEN: abdomen soft, non-tender, normo-active bowel sounds, no masses, no rebound or guarding. Multiple well healed scars from prior surgeries. BACK: Back is symmetrical on inspection and there is no deformity, no midline tenderness, no CVA tenderness. SKIN: no rashes and no bruising UPPER EXTREMITIES: upper extremities are grossly normal. FROM, nml pulses b/l. LOWER EXTREMITIES: No pitting edema. FROM, nml pulses b/l. NEURO EXAM: Normal sensorium, cranial nerves II-XII grossly intact, normal speech, no gross weakness of arms, no gross weakness of legs. Gross sensation intact. Course Course 0136: Pt still with nausea. Updated on all results. Patient began retching when attempting to stand to use the urinal or go to the bathroom. Blood pressure is improved. 0140: Discussed with the resident working with Dr. Puente. Administered Medications Sodium Chloride (Nss) 500 mls @ 125 mls/hr IV .Q4H MIRIAM Stop: 10/15/20 23:44 Last Admin: 09/16/20 00:08 Dose: 125 mls/hr Documented by: [id number] Metronidazole (Flagyl) 500 mg in 100 mls @ 100 mls/hr IV NOW STA Stop: 09/16/20 02:33 Last Admin: 09/16/20 02:12 Dose: 100 mls/hr Documented by: [id number] Discontinued Medications Famotidine (Famotidine 20mg/5ml Iv Push) 20 mg IV ONE STA Stop: 09/15/20 23:35 Last Admin: 09/16/20 00:07 Dose: 20 mg Documented by: [id number] Ceftriaxone Sodium (Rocephin) 1,000 mg in 50 mls @ 100 mls/hr IV NOW STA Stop: 09/16/20 02:03 Last Infusion: 09/16/20 02:17 Dose: 0 mls/hr Documented by: [id number] Admin: 09/16/20 01:45 Dose: 100 mls/hr Documented by: [id number] Ondansetron HCl (Ondansetron Inj 2 Mg/Ml 2 Ml Vial) 4 mg IV NOW STA Stop: 09/15/20 23:35 Last Admin: 09/16/20 00:07 Dose: 4 mg Documented by: [id number] Ondansetron HCl (Ondansetron Inj 2 Mg/Ml 2 Ml Vial) 4 mg IV NOW STA Stop: 09/16/20 01:35 Last Admin: 09/16/20 01:39 Dose: 4 mg Documented by: [id number] Medical Decision Making Differential Diagnosis Differential: Gastroenteritis, Food Borne, Esophageal Perforation, , El ectrolyte Abnormality, Dehydration, Intraabdominal Infection, UTI/Pyelonephritis, Bowel Obstruction, Biliary Pathology, amongst other pathology entertained. Medical Records Attestation: I reviewed the patient's medical records. Home Medications Current Medication List: was personally reviewed by me Laboratory Data Attestation: I reviewed the patient's lab results. Result diagrams: 09/16/20 00:02 09/16/20 00:02 Lab Results 09/16/20 09/16/20 Range/Units 00:02 00:02 WBC 6.58 (4.8-10.8) K/uL RBC 3.60 L (4.7-6.1) M/uL Hgb 11.3 L (14.0-18.0) g/dL Hct 33.8 L (42-52) % MCV 93.9 (80-100) fL MCH 31.4 (25-34) pg MCHC 33.4 (32-36) g/dL RDW Std Deviation 51.0 H (36.4-46.3) fL RDW Coeff of Penelope 14.6 H (11.5-14.5) % Plt Count 132 (130-400) K/uL MPV 10.7 H (7.4-10.4) fL Sodium 136 (136-145) mmol/L Potassium 5.0 (3.5-5.1) mmol/L Chloride 102 (98-107) mmol/L Carbon Dioxide 29 (21-32) mmol/L Anion Gap 5.0 (3-11) BUN 88 H (7-18) mg/dl Creatinine 5.16 H* (0.6-1.4) mg/dl Est Cr Clr Drug Dosing 11.2 ml/min Est GFR ( Amer) 11.3 Est GFR (Non-Af Amer) 9.7 BUN/Creatinine Ratio 16.8 (10-20) Glucose 189 H (70-99) mg/dl Calcium 9.0 (8.5-10.1) mg/dl Magnesium 2.3 (1.8-2.4) mg/dl Imaging Data Radiologist's Impression: CT abdomen and pelvis without contrast: Comparison: CT abdomen and pelvis 04/01/2020 Sigmoid diverticulosis and there are inflammatory changes again noted associated with a large sigmoid diverticulum, compatible with diverticulitis. Small amount of free fluid. No free air. Evaluation for abscess limited by lack of intravenous contrast, but no evidence of abscess. No bowel obstruction. Pneumobilia, similar to prior. Post cholecystectomy. Splenomegaly and findings suggestive of early hepatic cirrhotic change, similar to prior. L2-S1 fusion hardware and L3-L5 laminectomies. Moderate compression fracture of L1 vertebral body, similar to prior. Resulting streak artifact limits evaluation. Moderate pericardial effusion, similar to prior. Small right and trace left pleural effusions. Atherosclerotic calcifications of the aorta and its branches. Radiologist: Mehul Leung MD ECG Data Attestation: I personally reviewed and interpreted this ECG as follows: Indication: + nausea Rate (beats per minute): 75 Rhythm: + atrial fibrillation ECG Intervals/blocks: + Normal QRS and + Normal QT ECG Edon: + Normal ECG ST segments: + Nonspecific ST abnormalities Blood Pressure Blood Pressure Findings: Elevated blood pressure Blood Pressure Disposition: further management by hospitalist MDM Narrative This is an elderly male presenting with new onset nausea and vomiting however has a recent history of chronic diarrhea that is still being evaluated by GI. Patient ill-appearing on presentation, hypertensive and mildly tachycardic. Labs drawn and sent after review of outpatient labs earlier today which showed a worsening creatinine. Patient does have a history of chronic kidney disease and follows with nephrology. Patient then sent for CT imaging. CT is read by overnight radiologist found to have diverticulitis. Patient does have a history of diverticulitis although denies similar symptoms. Patient with no current abdominal pain, and description of abdominal pain recently has been intermittent and associated with episodes of diarrhea. Patient is anticoagulated due to history of atrial fibrillation, and has noted intermittent bleeding with the ongoing diarrhea which she felt was likely secondary to hemorrhoids. No evidence on CT of colitis or inflammatory bowel disease. Patient's other labs reassuring, no elevated white blood cell count. Patient is immunocompromise low putting him at risk. On additional review of EMR patient did have an outpatient stool culture, however no C. difficile test was found. Patient required multiple doses of antinausea medication here. Was cautiously rehydrated with IV fluids given recent history of congestive heart failure and known chronic kidney disease. Discussed all results with patient and and my concern for his current condition and need for cautious treatment. Patient was given IV antibiotics here due to persistent nausea and retching. Patient and in agreement with plan. Case discussed with the hospitalist. An order was placed for continuous cardiac monitoring. The monitor shows a rate of _103 with atrial fibrillation_ rhythm. Impression & Plan Nausea & vomiting, Immunocompromised state, S/P liver transplant, Generalized weakness, Diverticulitis, Chronic diarrhea, Acute on chronic kidney failure Discharge Plan Visit Data Chief Complaint: Vomiting Stated Complaint: WEAK, DIARRHEA, VOMITING ED Provider: Maryanne Jansen Discharge Problem: Nausea & vomiting, Immunocompromised state, S/P liver transplant, Generalized weakness, Diverticulitis, Chronic diarrhea, Acute on chronic kidney failure Forms Stand Alone Forms: [facility] Prescriptions Prescriptions: No Action calcitriol 0.5 mcg capsule 0.5 mcg PO QAM Qty: 30 RF: 5 metoprolol succinate 50 mg tablet extended release 24 hr 100 mg PO BID Qty: 120 RF: 5 venlafaxine 37.5 mg capsule,extended release 24hr 37.5 mg PO DAILY@1700 Qty: 30 RF: 2 insulin aspart U-100 [Novolog Flexpen U-100 Insulin] 100 unit/mL (3 mL) insulin pen 30 unit subcut DAILY Qty: 15 RF: 5 Prolia 60 mg/mL syringe 60 mg SUBCUT Q6MO Qty: 1 RF: 1 hydrocortisone [Anusol-HC] 2.5 % cream with perineal applicator 1 appln WV DAILY PRN (Reason: hemorrhoids) Qty: 28.35 RF: 0 amlodipine 5 mg tablet 5 mg PO DAILY Qty: 30 RF: 2 docusate sodium [Colace] 100 mg capsule 100 mg PO QAM RF: 0 lidocaine 5 % adhesive patch,medicated 1 patch TOP DAILY PRN (Reason: Pain) RF: 0 polyethylene glycol 3350 17 gram powder in packet 17 gm PO DAILY PRN (Reason: Constipation) RF: 0 magnesium gluconate 27.5 mg magne- sium (500 mg) tablet 200 mg PO DAILY RF: 0 Tresiba FlexTouch U-100 100 unit/mL (3 mL) insulin pen 12 unit subcut QAM Qty: 15 RF: 3 (DME) lancets [OneTouch Delica Lancets] 33 gauge misc See Rx Instructions .ROUTE .MEDSUPPLY Qty: 300 RF: 3 (DME) OneTouch Verio test strips Strip See Rx Instructions .ROUTE .MEDSUPPLY Qty: 300 RF: 3 tamsulosin [Flomax] 0.4 mg capsule 0.4 mg PO DAILY Qty: 90 RF: 3 triamcinolone acetonide 0.1 % cream 1 applic topical BID Qty: 30 RF: 3 Calmoseptine 0.44-20.6 % ointment 1 applic topical QID PRN (Reason: skin irritation) Qty: 113 RF: 5 Eliquis 2.5 mg tablet 2.5 mg PO BID Qty: 60 RF: 5 donepezil 10 mg tablet 10 mg PO DAILY Qty: 30 RF: 5 Prolia 60 mg/mL syringe 60 mg SUBCUT .Q 6 MONTHS RF: 0 fludrocortisone 0.1 mg tablet 0.1 mg PO DAILY RF: 0 prednisone 5 mg Tablet 5 mg PO QAM RF: 0 calcium carbonate [Calcium 600] 600 mg calcium (1,500 mg) Tablet 600 mg PO BID RF: 0 meclizine 25 mg Tablet 25 mg PO DAILY PRN (Reason: VERTIGO) RF: 0 ursodiol 300 mg Capsule 300 mg PO BID RF: 0 ClickMagic 1.5 billion cell Capsule 1 cap PO QAM RF: 0 aspirin 81 mg Tablet,Delayed Release (Dr/Ec) 81 mg PO QAM RF: 0 tacrolimus 1 mg Capsule 2 mg PO BID Qty: 120 RF: 0 furosemide [Lasix] 20 mg tablet 20 mg PO QAM Qty: 30 RF: 2
[2020-09-16] MEDS: SODIUM CHLORIDE 0.9% 500 ML IV SCH ×5 (00:08→16:29)
[2020-09-16 00:20] LABS: Hematocrit (blood only) 33.8 % (42-52); Hemoglobin 11.3 g/dL (14.0-18.0); Mean Corpuscular Hemoglobin 31.4 pg (25-34); Mean Corpuscular Hgb Conc 33.4 g/dL (32-36); Mean Corpuscular Volume 93.9 fL (80-100); Mean Platelet Volume 10.7 fL (7.4-10.4); Platelet Count 132 K/uL (130-400); RDW Coefficient of Variation 14.6 % (11.5-14.5); White Blood Count 6.58 K/uL (4.8-10.8)
[2020-09-16 00:46] LABS: BUN Creatinine Ratio 16.8 (10-20); Creatinine Clr Calc Pharmacy 11.2 ml/min; Est GFR (African American) 11.3; Est GFR (Non-African American) 9.7; Magnesium 2.3 mg/dl (1.8-2.4)
[2020-09-16] MEDS ORDERED: cefTRIAXone SODIUM 1,000 MG/50 ML BAG IV STA (01:34)
[2020-09-16] MEDS ORDERED: metroNIDAZOLE 500 MG/100 ML BAG IV STA (01:34)
[2020-09-16] MEDS ORDERED: ONDANSETRON INJ 2 MG/ML 2 ML VIAL IV STA (01:34)
--- NOTE | 2020-09-16 02:04 | History & Physical Report ---
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 Diarrhea CT without contrast: Sigmoid diverticulosis with inflammatory changes compatible with diverticulitis. Small amount of free fluid, no free air. No evidence of abscess. No bowel obstruction. Small changes compatible with diverticulitis, but unchanged from prior CT scan appreciated. Continue antibiotics as below, clears Chest/abdomen x-ray: No free air, no evidence of obstruction. Trace right and left pleural effusions unchanged from prior, interval resolution of pulmonary edema compared to prior. No leukocytosis 09/08/2020 stool study negative for Salmonella, Shigella, Campylobacter, E. coli toxin C. difficile pending - Continue Rocephin/Flagyl pending above - 1x hx blood in BM, hx of irritated hemorrhoids. No epigastric pain. no melena. NAM on CKD Creatinine worsened from 4.33 to5.23 - Hold lasix That is post 500 cc NSS - NSS 125cc/hr. - Bolus/reassess, hold fluids for increased O2 requirement -Reported patient with CHF, and a clinical presentation similar however Echo 08/19/2020: Normal LV systolic function, ejection fraction 55-60%. Moderate concentric LVH. History of A. 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 Would want intubation for declining respiratory status. 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 Patient reports that they saw GI and Dr. Douglass, and had labs and an x-ray today. Lawrence is here with his . After he was in the hospital last month he developed diarrhea and continued to have it when he returned home. Had 1 day without BM, hard BM with pain, then got worse and has persisted since. Had to get depends to compensate for having 8-10 BMs per day which are extremely loos but not liquid. He had 1 episode of red blood in the commode similar to prior bleeding with hemorrhoids. His is concerned about C. Diff because he has had it before. His reports stool samples were taken Tuesday which were normal, but did not include C. diff. Lawrence was at a sleep study to update his insurance authorization for BiPaP (had been having hypnogogic hallucinations, elevated CO2, and confusion which all resolved with BiPaP) when started vomiting and was called by the sleep study personell. 2x episodes of nonbloody, nonbilious emesis. On the way home he started vomiting again and his brought him to the ER. No fevers or chills No shortness of breath, difficulty breathing, or cough Endorses abdominal pain for 1 day. Has some nausea x1 day. No change in taste or smell. No focal weakness. Endorses global weakness and fatigue. No muscle/body aches Denies syncope/presyncope. No palpitations. Denies chest pain/chest pressure. Lawrence was seen in the hospital from 08/15/2210 weakness and intermittent atrial fibrillation on a Holter. At discharge she was noted to have multifacto rial shortness of breath with underlying venous stasis and potential CHF exacerbated by A. fib. He was discharged on Lasix with cautious balance against his CKD. At the time his echo did not show signs of systolic heart failure. Since discharge she has followed up with Dr. 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 Dialysis was discussed he was scheduled for vascular referral to have a aVF placed which was anticipated to be done on September 26. He was seen by gastroenterology on 09/15/2020. At that time he had reported that his diarrhea had began following hospital admission, and that he developed diarrhea on 08/19/2020 and since that time had 8-9 bowel movements per day and had a bowel movement every time he urinated. Stool culture was taken by GI and was negative for enteric pathogens. He has a history of C. difficile previously, a C. difficile study was ordered but not run/collected per GI report. Allergies Allergy/AdvReac Type Severity Reaction Status Date / Time aspirin AdvReac Unknown high doses Verified 09/15/20 14:31 contrindicated d/t hx liver transplant ibuprofen AdvReac Unknown not to Verified 09/15/20 14:31 take due to transplant Home Medications Home Medications Medication Instructions Recorded Confirmed Type calcium carbonate [Calcium 600] 600 mg PO BID 01/09/19 09/16/20 History meclizine 25 mg PO DAILY PRN 01/09/19 09/16/20 History prednisone 5 mg PO QAM 01/09/19 09/16/20 History ursodiol 300 mg PO BID 01/09/19 09/16/20 History docusate sodium 100 mg capsule 100 mg PO QAM 06/19/19 09/16/20 History Gates RIISnet 1 cap PO QAM 07/10/19 09/16/20 History lidocaine 5 % topical patch 1 patch TOP DAILY PRN 08/10/19 09/16/20 History polyethylene glycol 3350 17 gram 17 gm PO DAILY PRN 08/10/19 09/16/20 History oral powder packet calcitriol 0.5 mcg capsule 0.5 mcg PO QAM #30 cap 09/25/19 09/16/20 Rx aspirin 81 mg PO QAM 03/17/20 09/16/20 History hydrocortisone 2.5 % topical cream 1 appln NH DAILY PRN #28.35 gm 03/18/20 09/16/20 Rx with perineal applicator metoprolol succinate 50 mg 100 mg PO BID #120 tab 05/20/20 09/16/20 Rx tablet,extended release 24 hr venlafaxine 37.5 mg 37.5 mg PO DAILY@1700 #30 cap 07/10/20 09/16/20 Rx capsule,extended release 24 hr insulin aspart U-100 100 unit/mL 30 unit SUBCUT DAILY #15 ml 07/16/20 09/16/20 Rx (3 mL) subcutaneous pen Prolia 60 mg/mL subcutaneous 60 mg SUBCUT Q6MO #1 ml NS 07/22/20 09/16/20 Rx syringe amlodipine 5 mg tablet 5 mg PO DAILY #30 tab 07/22/20 09/16/20 Rx tamsulosin 0.4 mg capsule 0.4 mg PO DAILY #90 cap 08/12/20 09/16/20 Rx triamcinolone acetonide 0.1 % 1 applic TOPICAL BID #30 g 08/12/20 09/16/20 Rx topical cream furosemide [Lasix] 20 mg PO QAM #30 tab 08/19/20 09/16/20 Rx tacrolimus 2 mg PO BID #120 cap 08/19/20 09/16/20 Rx apixaban 2.5 mg tablet 2.5 mg PO BID #60 tab 08/21/20 09/16/20 Rx donepezil 10 mg tablet 10 mg PO DAILY #30 tab 08/21/20 09/16/20 Rx menthol 0.44 %-zinc oxide 20.6 % 1 applic TOPICAL QID PRN #113 g 09/02/20 09/16/20 Rx topical ointment OneTouch Delica Lancets 33 gauge #300 ea NS 09/12/20 09/15/20 Rx OneTouch Verio test strips #300 ea NS 09/12/20 09/15/20 Rx insulin degludec 100 unit/mL (3 12 unit SUBCUT QAM #15 ml 09/12/20 09/16/20 Rx mL) subcutaneous pen magnesium gluconate 27.5 mg 200 mg PO DAILY tab 09/12/20 09/16/20 History magnesium (500 mg) tablet denosumab [Prolia] 60 mg SUBCUT .Q 6 MONTHS 09/16/20 09/16/20 History fludrocortisone 0.1 mg PO DAILY 09/16/20 09/16/20 History Past Med/Surg History Medical History Abscess of skin of abdomen BPH (benign prostatic hyperplasia) Bright red rectal bleeding Cancer SKIN CANCER-BASAL CELL/SQUAMOUS Diabetes mellitus Dyspnea Hypertension Lower extremity edema Pancreatitis HX S/P liver transplant Sclerosing cholangitis S/P liver transplant 1994 Vitamin D deficiency Surgical History Fusion of spine LUMBAR H/O exploratory laparotomy FOR HEMATOMA/DIVERTIULITIS?-02/23/19 [facility] History of appendectomy History of cholecystectomy History of colonoscopy History of esophagogastroduodenoscopy (EGD) History of herniorrhaphy X 2 History of liver biopsy History of oral surgery Posts implanted in mandible for bottom denture History of tooth extraction Transplant LIVER 1994 IN [place] ([facility]) Family History Father Family history of diabetes mellitus Myocardial infarction Heart failure Mother Dementia Denies family history of Ovarian cancer Prostate cancer Breast cancer Colorectal cancer Social History Smoking Status: Former smoker Tobacco Type: Cigarettes Cigarettes Per Day: QUIT 1971; Second Hand Exposure: No; Hx Alcohol Use: No Hx Substance Use: No Preferred Language: Indonesian Communication Ability: Effective Composite Bond Technician Required: No Beliefs That Will Affect Care: None marital status: Current Living Situation: Spouse current occupational status: retired Other Information That Helps Us Care for You: No Feels Safe at Home: Yes Safety Concerns: Feels Safe At This Time Dental Care, Regularly: Yes Seatbelt Use: always Sunscreen Use: Yes Assistive Devices: Glasses and Hearing Aid - Bilateral Review of Systems Review of Systems: See HPI Physical Exam Physical Exam: General: A&Ox3. NAD. Cooperative. Appears fatigued. HEENT: Atraumatic, normocephalic. PERLAA. Mucous membranes dry. Pulm: CTAB A&P. -wheezes, -rales, -rhonchi. Symmetrical chest rise. No increase work of breathing. No respiratory distress. Cardiac: RRR, -mrg. Radial pulses intact and symmetrical. Abdominal: Minimally tender in LLQ. Nondistended, soft. BS present. Results & Data Results & Data ([facility]) Vital Signs (Past 12 Hours) Vital Signs Temp Pulse Resp BP Pulse Ox 09/15/20 23:07 36.4 C L 89 20 181/99 H 97 Supervising Physician Co-Signing Physician Notes Attending addendum: I have physically seen this patient, have supervised the medical residents activities, and agree with the H&P unless as otherwise noted. Assessment and Plan: Sigmoid diverticulitis- Ceftriaxone 1 g IV daily, Flagyl 500 mg IV every 8 hours Follow stool studies for culture and C. difficile Clear liquid diet, and will advance as tolerated Acute kidney injury on chronic kidney disease- Hold Lasix overnight. Given 500 cc normal saline in the ED. NSS at 125 mL's per hour Follow serial BMP and magnesium levels Atrial fibrillation- Continue metoprolol and apixaban Remaining orders and notations as noted. Resident Activity Tracking Resident Involvement: Resident Care Provided Care Provided: [facility]
[2020-09-16] MEDS ORDERED: LIDOCAINE 5% 1 PATCH TD PRN (06:13)
[2020-09-16] MEDS ORDERED: GLUCOSE 10 TABS/TUBE PO PRN (06:13)
[2020-09-16] MEDS ORDERED: CARBOHYDRATES FOR HYPOGLYCEMIA PO PRN (06:13)
[2020-09-16] MEDS ORDERED: GLUCOSE 40% GEL 15 GM TUBE PO PRN (06:13)
[2020-09-16] MEDS ORDERED: GLUCAGON FOR INJ 1 MG VIAL SQ PRN (06:13)
[2020-09-16] MEDS ORDERED: DEXTROSE 50% 50 ML SYRINGE IV PRN (06:13)
[2020-09-16] MEDS ORDERED: SODIUM CHLORIDE 0.9% 1000ML 500 ML IV ONE (06:13)
[2020-09-16] MEDS: INSULIN ASPART 100 UNITS/ML 3 ML PEN SC SCH ×4 (07:36→20:55)
--- NOTE | 2020-09-16 07:51 | CT Scan Report ---
ABDOMEN AND PELVIS CT WITHOUT CONTRAST CT DOSE: 300.76 mGy.cm HISTORY: Acute nausea with vomiting and diarrhea. Acute generalized abdominal pain n/v/d TECHNIQUE: Multiaxial CT images of the abdomen and pelvis were performed without contrast. A dose lo wering technique was utilized adhering to the principles of ALARA. COMPARISON STUDY: Acute abdominal series radiographs 09/15/2020, CT abdomen and pelvis 04/01/2020 FINDINGS: Moderate cardiac megaly with moderate sized pericardial effusion measuring up to 10 mm posteriorly, s table from comparison. Mitral annular calcifications. Trace left and small right pleural effusions wi th linear subpleural bibasilar calcifications. Mild dependent subsegmental bibasilar atelectasis. The re is no pneumatosis or pneumoperitoneum. Limited evaluation of the solid abdominal organs without the use of IV contrast. Spleen is enlarged m easuring up to 17 cm, unchanged. Moderate pancreatic atrophy. Unremarkable adrenal glands. Unchanged pneumobilia. The gallbladder appears surgically absent. Mild marginal nodularity of the liver is rede monstrated suggestive of early cirrhotic changes. 1.6 x 1.5 cm low-density lesion of the inferior pole left kidney may reflect a cyst. No hydronephrosi s. Prostamegaly with urinary bladder wall thickening and mild perivesicular stranding. Extensive calc ified plaque of the abdominal aorta without aneurysm. Retroaortic left renal vein. No adenopathy. Ext ensive vascular calcifications are abdomen. There is no bowel obstruction. Extensive colonic diverticulosis. There is wall thickening of the mid sigmoid colon with inflammation centered around a large diverticulum compatible with acute diverticul itis. Trace pelvic free fluid with stranding of the mesocolon fat. No drainable fluid collection or e vidence of perforation. The appendix is not definitively seen. Mild generalized body wall edema. Dege nerative changes of the spine, pelvis and hips. 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 Laminectomy changes at L3-L5 with posterior interbody simone and screw fusion at L2-S1. There is lucency surrounding the bilateral L2 screws and to a lesser extent surrounding th e S1 screws. No evidence of hardware fracture. Unchanged appearance of the remote L1 compression defo rmity. IMPRESSION: 1. Findings compatible with acute uncomplicated sigmoid diverticulitis. No evidence of perforation or drainable fluid collection. 2. No bowel obstruction. 3. Trace left and small right pleural effusions. 4. Cardiomegaly with unchanged moderate sized pericardial effusion. 5. Findings suggestive of early cirrhotic liver disease with moderate splenomegaly. 6. Prostamegaly with urinary bladder wall thickening suggestive of chronic bladder outlet obstruction . 7. Posterior interbody simone and screw fusion at L2-S1 redemonstrated. Lucency surrounding the bilatera l L2 pedicle screws suggests hardware loosening. 8. Additional findings as above. ACT 112: Negative or not required by law. The above report was generated using voice recognition software. It may contain grammatical, syntax o r spelling errors. Electronically signed by: Delfin Thurman M.D. 09/16/2020 7:50 AM
[2020-09-16] MEDS: CALCIUM CARBONATE 1250MG TAB PO SCH ×2 (08:44→20:04)
[2020-09-16] MEDS: amLODIPine BESYLATE 5 MG TAB PO SCH (08:44)
[2020-09-16] MEDS: METOPROLOL SUCC 50MG EXT REL TAB PO SCH ×2 (08:44→20:07)
[2020-09-16] MEDS: predniSONE 5 MG TAB PO SCH (08:44)
[2020-09-16] MEDS: CALCITRIOL 0.25 MCG CAPSULE PO SCH (08:44)
[2020-09-16] MEDS: ASPIRIN 81 MG ECTAB PO SCH (08:45)
[2020-09-16] MEDS: APIXABAN 2.5 MG TAB PO SCH ×2 (08:45→20:03)
[2020-09-16] MEDS: ursodioL 300 MG CAP PO SCH ×2 (08:45→20:03)
[2020-09-16] MEDS: DONEPEZIL HCL 10 MG TAB PO SCH (08:45)
[2020-09-16] MEDS: FLUDROCORTISONE ACETATE 0.1 MG TAB PO SCH (08:45)
[2020-09-16] MEDS: TAMSULOSIN HCL 0.4 MG CAP PO SCH (08:45)
[2020-09-16] MEDS: TRIAMCINOLONE ACET 0.1% CR 15 GM TUBE TOP SCH ×2 (08:46→20:00)
[2020-09-16] MEDS: INSULIN GLARGINE SOLOSTAR 100 UNITS/ML 3 ML PEN SC SCH ×2 (08:46→20:00)
[2020-09-16] MEDS: PANTOprazole 40 MG in SYRINGE 0 ML IV SCH ×2 (08:48→20:00)
[2020-09-16] MEDS: FAMOTIDINE 20 MG in SYRINGE 3 ML IV SCH ×2 (08:48→20:00)
[2020-09-16] MEDS ORDERED: TACROLIMUS 1 MG CAP PO SCH (09:00)
[2020-09-16] MEDS ORDERED: ONDANSETRON INJ 2 MG/ML 2 ML VIAL ONE (11:36)
--- NOTE | 2020-09-16 11:51 | Electrocardiogram Report ---
Test Reason : Blood Pressure : / mmHG Vent. Rate : 075 BPM Atrial Rate : 267 BPM P-R Int : 000 ms QRS Dur : 098 ms QT Int : 376 ms P-R-T Axes : 000 005 191 degrees QTc Int : 419 ms Poor data quality, interpretation may be adversely affected Atrial fibrillation Possible Anterior infarct (cited on or before 16-SEP-2020) Abnormal ECG When compared with ECG of 15-AUG-2020 14:31, Atrial fibrillation has replaced Sinus rhythm Confirmed by Moises Bernal ([id number]) on 09/16/2020 11:50:49 AM Referred By: REFERRED SELF Confirmed By:Moises Bernal
[2020-09-16] MEDS: metroNIDAZOLE 500 MG/100 ML BAG IV SCH ×2 (14:55→20:54)
--- NOTE | 2020-09-16 15:27 | Hospitalist Progress Note ---
Date of Service September 16, 2020 Assessment & Plan (1) Diarrhea: Ongoing diarrhea since 08/19. Patient was seen by GI outpatient on 09/15. CT without contrast: Uncomplicated diverticulitis. No free air or abscess. No bowel obstruction. 09/08/2020 stool study negative for Salmonella, Shigella, Campylobacter, E. coli toxin C. difficile pending - patient does have a history of such Continue Rocephin/Flagyl Clear liquid diet Will likely need colonoscopy when infection has resolved. (2) CKD (chronic kidney disease), stage IV: NAM on CKD. 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 Last appointment with Dr. Rider in August patient was being set up for vascular referral for AVF placement Creatinine on worsened from 4.33 to 5.23 on admission Continue to hold lasix Given 500 cc NSS in the ED. 1650 mls intake so far. Currently running NSS @ 125. Lungs are clear, no edema. Will need to be careful with fluids given kidney function. Echo 08/19/2020: Normal LV systolic function, ejection fraction 55-60%. Moderate concentric LVH. Last admission failure was due to Afib rather than a CHF exacerbation. Does not appear patient has history of CHF Strict Is & Os Repeat prp Consult nephrology (3) Hyperkalemia: History of elevated potassium, maintains a low potassium diet. Most recent nephrology note states patient stopped Florinef because of elevated BP and worsening kidney function however he is continued on it per his outpatient list, will need to discuss with nephrology. Also avoiding and RAAS blockade Repeat prp this afternoon (4) PAF (paroxysmal atrial fibrillation): Hgb stable, continue with metoprolol 50 mg, apixaban twice daily (5) Diabetes mellitus: Type 2 diabetes with nephropathy Hold home insulin SSI weight-based insulin, Lantus 14 units daily CF 48 ratio 14 Glucose checks AC/at bedtime (6) BPH (benign prostatic hyperplasia): Continue tamsulosin (7) Obstructive sleep apnea: Chronic hypercarbia, JANES Patient with history of hallucinations and CO2 retention when not on BiPAP Continue BiPAP night (8) Depression, major, recurrent, in remission: Continue venlafaxine (9) S/P liver transplant: Due to primary sclerosing cholangitis On tacrolimus No acute decompensation (10) DVT prophylaxis: Apixaban Code status - per admission note DNR but would want intubation - will change order to reflect this conditional code. Admission and Anticipated Discharge Date Admission Date: September 16, 2020 [address]ive Mr. Herrera is very hard of hearing and history comes from his . His stools are slowing down. He has had some blood in them over the past few days. Per his , this diarrhea has been ongoing for weeks to months. No aches or chills, no fevers, no changes in bladder. He vomited last night but otherwise has been able to eat and drink. ROS Constitutional: no chills, aches, sweats or fever Respiratory: no sob,cough, sputum, or wheezing Cardiac: no chest pain, palpitations, edema, orthopnea or lightheadedness GI: see HPI : no dysuria or hesitancy Extremities: no joint pain or weakness Skin: no rash All other systems reviewed and negative Physical Exam Physical Exam: General: no distress Eyes: normal inspection, PERLL Respiratory: chest non tender, clear to auscultation, normal breath sounds, no respiratory distress, no accessory muscle use Cardiac: regular rate and rhythm, no rub or gallop, no murmur, no edema, no jvd GI/: active bowel sounds, no abd pain or tenderness, soft, non distended Extremities: normal range of motion, normal strength, non tender Neuro/Psych: alert and oriented x 3, normal mood and affect Skin: normal color, dry Results & Data Results & Data ([facility]) Vital Signs (Past 12 Hours) Vital Signs Temp Pulse Pulse Resp BP BP Pulse Ox 09/16/20 12:00 36.8 C 67 14 142/70 H 97 09/16/20 08:00 36.9 C 70 66 12 150/88 H 97 09/16/20 05:30 36.6 C 74 16 176/107 H 95 09/16/20 05:00 70 19 131/62 97 09/16/20 04:30 71 15 159/95 H 98 09/16/20 04:00 65 18 161/106 H 98 09/16/20 03:30 64 20 162/91 H 97 PG Care Time/CCT Total # of Minutes Spent Total Time Spent with Patient: Total time spent is greater than 50% in coordination of care (as documented) at patient's floor/unit and/or counseling patient: Coding Level of Care Code None Diagnoses Diarrhea R19.7 CKD (chronic kidney disease), stage IV N18.4 Hyperkalemia E87.5 PAF (paroxysmal atrial fibrillation) I48.0 Diabetes mellitus E11.9 BPH (benign prostatic hyperplasia) N40.0 Obstructive sleep apnea G47.33 Depression, major, recurrent, in remission F33.40 S/P liver transplant Z94.4 DVT prophylaxis Z29.9
[2020-09-16 16:01] LABS: BUN Creatinine Ratio 16.2 (10-20); Calcium 8.7 mg/dl (8.5-10.1); Creatinine Clr Calc Pharmacy 12.7 ml/min; Est GFR (African American) 12.3; Est GFR (Non-African American) 10.6; Potassium 5.2 mmol/L (3.5-5.1)
[2020-09-16] MEDS: VENLAFAXINE HCL XR 37.5 MG CAPXR PO SCH (16:23)
[2020-09-16] MEDS ORDERED: SODIUM CHLORIDE 0.9% 1000ML 1,000 ML IV SCH (16:30)
[2020-09-16] MEDS: cefTRIAXone SODIUM 1,000 MG in DEXTROSE 5% 50 ML IV SCH (17:14)
[2020-09-16] MEDS: TACROLIMUS 1 MG CAP PO SCH (20:05)
[2020-09-16 21:14] LABS: Calcium 8.5 mg/dl (8.5-10.1); Creatinine Clr Calc Pharmacy 12.7 ml/min; Est GFR (African American) 12.3; Est GFR (Non-African American) 10.6; Potassium 5.5 mmol/L (3.5-5.1)
[2020-09-16] MEDS ORDERED: PHARMACY GLYCEMIC MGMT CONSULT PRN (21:38)
[2020-09-16] MEDS ORDERED: BUMETANIDE 1 MG in SYRINGE 0 ML IV STA (21:50)
[2020-09-16] MEDS ORDERED: BUMETANIDE 1 MG in SYRINGE 0 ML IV SCH (22:00)
[2020-09-16] MEDS: MELATONIN 3 MG TAB PO PRN (23:54)
[2020-09-17] MEDS: INSULIN ASPART 100 UNITS/ML 3 ML PEN SC SCH ×6 (00:13→21:06)
[2020-09-17 02:14] LABS: Mean Corpuscular Hemoglobin 30.9 pg (25-34); Mean Corpuscular Hgb Conc 33.3 g/dL (32-36); Mean Corpuscular Volume 92.7 fL (80-100); Mean Platelet Volume 10.2 fL (7.4-10.4); Platelet Count 150 K/uL (130-400); RDW Coefficient of Variation 14.9 % (11.5-14.5); RDW Standard Deviation 50.9 fL (36.4-46.3); Red Blood Count 3.56 M/uL (4.7-6.1); White Blood Count 8.01 K/uL (4.8-10.8)
[2020-09-17 03:50] LABS: BUN Creatinine Ratio 15.9 (10-20); Calcium 8.4 mg/dl (8.5-10.1); Creatinine Clr Calc Pharmacy 12.8 ml/min; Est GFR (African American) 12.4; Est GFR (Non-African American) 10.7
[2020-09-17 03:53] LABS: Potassium 4.3 mmol/L (3.5-5.1)
[2020-09-17] MEDS: metroNIDAZOLE 500 MG/100 ML BAG IV SCH ×3 (05:22→22:04)
[2020-09-17] MEDS: APIXABAN 2.5 MG TAB PO SCH ×2 (07:54→20:41)
[2020-09-17] MEDS: CALCITRIOL 0.25 MCG CAPSULE PO SCH (07:54)
[2020-09-17] MEDS: TAMSULOSIN HCL 0.4 MG CAP PO SCH (07:55)
[2020-09-17] MEDS: ASPIRIN 81 MG ECTAB PO SCH (07:55)
[2020-09-17] MEDS: predniSONE 5 MG TAB PO SCH (07:55)
[2020-09-17] MEDS: ursodioL 300 MG CAP PO SCH ×2 (07:56→20:43)
[2020-09-17] MEDS: DONEPEZIL HCL 10 MG TAB PO SCH (07:56)
[2020-09-17] MEDS: FAMOTIDINE 20 MG in SYRINGE 3 ML IV SCH ×2 (07:57→21:01)
[2020-09-17] MEDS: PANTOprazole 40 MG in SYRINGE 0 ML IV SCH ×2 (07:57→21:01)
[2020-09-17] MEDS: TACROLIMUS 1 MG CAP PO SCH ×2 (07:57→20:45)
[2020-09-17] MEDS: CALCIUM CARBONATE 1250MG TAB PO SCH ×2 (07:57→20:40)
[2020-09-17] MEDS: FLUDROCORTISONE ACETATE 0.1 MG TAB PO SCH (07:59)
[2020-09-17] MEDS: amLODIPine BESYLATE 5 MG TAB PO SCH (07:59)
[2020-09-17] MEDS: METOPROLOL SUCC 50MG EXT REL TAB PO SCH ×2 (08:00→21:07)
[2020-09-17] MEDS: TRIAMCINOLONE ACET 0.1% CR 15 GM TUBE TOP SCH ×3 (08:05→21:12)
[2020-09-17] MEDS ORDERED: INSULIN GLARGINE SOLOSTAR 100 UNITS/ML 3 ML PEN SC SCH (09:00)
--- NOTE | 2020-09-17 09:25 | Nephrology Consultation ---
Date of Consultation September 17, 2020 Assessment & Plan (1) Acute kidney injury: * Nonoliguric NAM due to dehydration * Cr trending down w/ IV hydration. Electrolyte balance is acceptable. No acute indication for MARKET NEWS REPORTER at this time * Will check FeNa * Will provide 1 L 0.9 NS at 80 cc/hr * Monitor PRP (2) CKD (chronic kidney disease), stage IV: * Progressive rise in Cr likely related to CNI injury w/ underlying DM, HTN and microvascular disease. 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 He is scheduled for vascular surgery evaluation to create AVF * Recommend protecting nondominant arm for future vascular access placement (3) Hyperkalemia: * Corrected * EMR shows h/o orthostasis as reason for starting Florinef * Recommend checking orthostatic vital signs - if negative consider stopping Florinef. If + continue current medical regimen and taper amlodipine if possible (4) Diarrhea: * Sigmoid diverticulitis on noncontrast abdominal CT * Subjectively improved w/ IV Ceftriaxone and Metronidazole * Stool for E. Coli toxin, O&P has been negative (5) S/P liver transplant: * s/p liver transplant 2004 at [facility] due to PSC. Current immunosuppressive regimen consists of Tacrolimus and low dose prednisone History of Present Illness Reason for Consultation: NAM/CKD Attending Physician: Luis Cabrera DO History of Present Illness Mr. Herrera is an 80 year old white male who is seen at the request of Marjorie Thompson PA-c for evaluation of NAM/CKD. Medical records in the EMR were reviewed today and are summarized as follows: Mr. Herrera has advanced CKD due to multiple factors including DM, HTN and long-term CNI therapy for liver transplant. His primary Hook[place] is Dr. Rider. Mr. Herrera's baseline Cr has been progressively rising. As an outpatient this has been 4.0 - 4.3. Mr. Herrera has undergone dialysis education at [facility] and is willing to start HD if needed. He is scheduled for vascular access evaluation 09/26/20 w/ Dr. Otero. Mr. Herrera's medical history is also significant for PSC s/p liver transplant 2004 at [facility] (tacrolimus, prednisone), labile BP managed w/ both antihypertensive agents and mineralocorticoid, atrial fibrillation, diverticulosis, DM, osteoporosis, BPH w/ elevated PSA, MGUS, depression and [place]. Mr. Herrera reports a recent history of abdominal discomfort, recurrent emesis and diarrhea. Noncontrast abdominal CT reveals sigmoid diverticulitis. Cr has risen to 5.23. Urine sediment was acellular. 07/27 renal US - R 10.3cm, L 9.5cm. No hydronephrosis. Prostate is slightly enlarged. 07/27 doppler negative for MARIAH. No recent use of NSAIDS or exposure to known nephrotoxic agents Allergies Allergy/AdvReac Type Severity Reaction Status Date / Time aspirin AdvReac Unknown high doses Verified 09/15/20 14:31 contrindicated d/t hx liver transplant ibuprofen AdvReac Unknown not to Verified 09/15/20 14:31 take due to transplant Home Medications Home Medications Medication Instructions Recorded Confirmed Type calcium carbonate [Calcium 600] 600 mg PO BID 01/09/19 09/16/20 History meclizine 25 mg PO DAILY PRN 01/09/19 09/16/20 History prednisone 5 mg PO QAM 01/09/19 09/16/20 History ursodiol 300 mg PO BID 01/09/19 09/16/20 History docusate sodium 100 mg capsule 100 mg PO QAM 06/19/19 09/16/20 History Synappio 1 cap PO QAM 07/10/19 09/16/20 History lidocaine 5 % topical patch 1 patch TOP DAILY PRN 08/10/19 09/16/20 History polyethylene glycol 3350 17 gram 17 gm PO DAILY PRN 08/10/19 09/16/20 History oral powder packet calcitriol 0.5 mcg capsule 0.5 mcg PO QAM #30 cap 09/25/19 09/16/20 Rx aspirin 81 mg PO QAM 03/17/20 09/16/20 History hydrocortisone 2.5 % topical cream 1 appln OR DAILY PRN #28.35 gm 03/18/20 09/16/20 Rx with perineal applicator metoprolol succinate 50 mg 100 mg PO BID #120 tab 05/20/20 09/16/20 Rx tablet,extended release 24 hr venlafaxine 37.5 mg 37.5 mg PO DAILY@1700 #30 cap 07/10/20 09/16/20 Rx capsule,extended release 24 hr insulin aspart U-100 100 unit/mL 30 unit SUBCUT DAILY #15 ml 07/16/20 09/16/20 Rx (3 mL) subcutaneous pen Prolia 60 mg/mL subcutaneous 60 mg SUBCUT Q6MO #1 ml NS 07/22/20 09/16/20 Rx syringe amlodipine 5 mg tablet 5 mg PO DAILY #30 tab 07/22/20 09/16/20 Rx tamsulosin 0.4 mg capsule 0.4 mg PO DAILY #90 cap 08/12/20 09/16/20 Rx triamcinolone acetonide 0.1 % 1 applic TOPICAL BID #30 g 08/12/20 09/16/20 Rx topical cream furosemide [Lasix] 20 mg PO QAM #30 tab 08/19/20 09/16/20 Rx tacrolimus 2 mg PO BID #120 cap 08/19/20 09/16/20 Rx apixaban 2.5 mg tablet 2.5 mg PO BID #60 tab 08/21/20 09/16/20 Rx donepezil 10 mg tablet 10 mg PO DAILY #30 tab 08/21/20 09/16/20 Rx menthol 0.44 %-zinc oxide 20.6 % 1 applic TOPICAL QID PRN #113 g 09/02/20 09/16/20 Rx topical ointment OneTouch Delica Lancets 33 gauge #300 ea NS 09/12/20 09/15/20 Rx OneTouch Verio test strips #300 ea NS 09/12/20 09/15/20 Rx insulin degludec 100 unit/mL (3 12 unit SUBCUT QAM #15 ml 09/12/20 09/16/20 Rx mL) subcutaneous pen magnesium gluconate 27.5 mg 200 mg PO DAILY tab 09/12/20 09/16/20 History magnesium (500 mg) tablet denosumab [Prolia] 60 mg SUBCUT .Q 6 MONTHS 09/16/20 09/16/20 History fludrocortisone 0.1 mg PO DAILY 09/16/20 09/16/20 History Patient History Medical History Abscess of skin of abdomen BPH (benign prostatic hyperplasia) Bright red rectal bleeding Cancer SKIN CANCER-BASAL CELL/SQUAMOUS Diabetes mellitus Dyspnea Hypertension Lower extremity edema Pancreatitis HX S/P liver transplant Sclerosing cholangitis S/P liver transplant 1994 Vitamin D deficiency Surgical History Fusion of spine LUMBAR H/O exploratory laparotomy FOR HEMATOMA/DIVERTIULITIS?-02/23/19 [facility] History of appendectomy History of cholecystectomy History of colonoscopy History of esophagogastroduodenoscopy (EGD) History of herniorrhaphy X 2 History of liver biopsy History of oral surgery Posts implanted in mandible for bottom denture History of tooth extraction Transplant LIVER 1994 IN [place] ([facility]) Family History Father Family history of diabetes mellitus Myocardial infarction Heart failure Mother Dementia Denies family history of Ovarian cancer Prostate cancer Breast cancer Colorectal cancer Social History Smoking Status: Former smoker Tobacco Type: Cigarettes Cigarettes Per Day: QUIT 1971; Second Hand Exposure: No; Hx Alcohol Use: No Hx Substance Use: No Preferred Language: Portuguese Communication Ability: Effective Content Coordinator Required: No Beliefs That Will Affect Care: None marital status: Current Living Situation: Spouse current occupational status: retired Other Information That Helps Us Care for You: No Feels Safe at Home: Yes Safety Concerns: Feels Safe At This Time Dental Care, Regularly: Yes Seatbelt Use: always Sunscreen Use: Yes Assistive Devices: Glasses and Hearing Aid - Bilateral Review of Systems Constitutional: no fever Eyes: no problem reported Ear, Nose, Mouth, Throat: no problem reported Respiratory: no dyspnea Cardiovascular: no chest pain, no palpitations and no edema Gastrointestinal: + nausea and + diarrhea/loose stools; no abdominal pain Genitourinary: no dysuria, no urinary hesitancy and no hematuria Musculoskeletal: no back pain Integumentary: no rash Neurologic: no dizziness and no confusion Physical Exam Constitutional: + frail appearing; not in distress Eyes: PERRL, conjunctivae normal, anicteric sclerae ENMT: Nose: + dry nasal mucous membranes Neck: trachea midline, no thyromegaly Respiratory: normal respiratory effort, lungs clear to auscultation Cardiovascular: Rate/Rhythm: + irregularly irregular Gastrointestinal (Abdomen): Inspection/Auscultation: + hypoactive bowel sounds Percussion/Palpation: abdomen nontender and no guarding Musculoskeletal: Extremities: no cyanosis (poor skin turgor, + skin tenting) Skin: + turgor decreased Neurologic: awake; not confused [place] Results & Data ([facility]) Vital Signs (Past 12 Hours) Vital Signs Temp Pulse Pulse Resp BP BP Pulse Ox 09/17/20 08:10 36.5 C 55 L 18 172/80 H 172/80 H 94 09/17/20 03:45 36.5 C 60 18 161/76 H 97 09/17/20 00:10 56 L 09/16/20 23:32 36.6 C 58 L 20 170/83 H 96 09/16/20 22:20 57 L 16 93 Laboratory Results Laboratory Tests 07/30/20 08/15/20 09/17/20 08:07 16:45 01:47 WBC 8.01 Hgb 11.0 L Hct 33.0 L Plt Count 150 Sodium Potassium Chloride Carbon Dioxide BUN Creatinine Glucose Urine Color Yellow Urine Appearance Clear Urine pH 7.5 Ur Specific [place] 1.013 Urine Protein 3+ H Urine Glucose (UA) Negative Urine Blood Negative Urine Nitrite Negative Ur Leukocyte Esterase Negative Urine RBC (Auto) 0-4 Urine Bacteria (Auto) Negative Protein/Creatinin Ratio 3.6 H 09/17/20 01:47 WBC Hgb Hct Plt Count Sodium 138 Potassium 4.3 D Chloride 105 Carbon Dioxide 29 BUN 76 H Creatinine 4.78 H* Glucose 67 L Urine Color Urine Appearance Urine pH Ur Specific [place] Urine Protein Urine Glucose (UA) Urine Blood Urine Nitrite Ur Leukocyte Esterase Urine RBC (Auto) Urine Bacteria (Auto) Protein/Creatinin Ratio PG Care Time/CCT Total # of Minutes Spent Total Time Spent with Patient: Total time spent is greater than 50% in coordination of care (as documented) at patient's floor/unit and/or counseling patient: Coding Level of Care Code 06426 Inpt Consult Level 5 Diagnoses Acute kidney injury N17.9 CKD (chronic kidney disease), stage IV N18.4 Hyperkalemia E87.5 Diarrhea R19.7 S/P liver transplant Z94.4
[2020-09-17] MEDS: ONDANSETRON INJ 2 MG/ML 2 ML VIAL IV PRN ×2 (09:45→17:50)
[2020-09-17] MEDS ORDERED: SODIUM CHLORIDE 0.9% 1000ML 1,000 ML IV SCH (10:00)
--- NOTE | 2020-09-17 14:18 | Hospitalist Progress Note ---
Date of Service September 17, 2020 Assessment & Plan (1) Diarrhea: Ongoing diarrhea since 08/19. Patient was seen by GI outpatient on 09/15. CT without contrast: Uncomplicated diverticulitis. No free air or abscess. No bowel obstruction. 09/08/2020 stool study negative for Salmonella, Shigella, Campylobacter, E. coli toxin C. difficile pending Continue Rocephin/Flagyl Clear liquid diet Will likely need colonoscopy when infection has resolved. (2) CKD (chronic kidney disease), stage IV: NAM on CKD. 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 Last appointment with Dr. Rider in August patient was being set up for vascular referral for AVF placement Creatinine on admission worsened from 4.33 to 5.23 on admission Given IVF however potassium was trending up so 1 mg Bumex given last evening. Per nephrology - 1L gentle NSS to be given Echo 08/19/2020: Normal LV systolic function, ejection fraction 55-60%. Moderate concentric LVH. Last admission failure was due to Afib rather than a CHF exacerbation. Does not appear patient has history of CHF Strict Is & Os Consulted nephrology (3) Hyperkalemia: History of elevated potassium, maintains a low potassium diet. 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 Herrera has left lower abdominal tenderness. He reports his stools have slowed. No nausea or vomiting. ROS Constitutional: no chills, aches, sweats or fever Respiratory: no sob,cough, sputum, or wheezing Cardiac: no chest pain, palpitations, edema, orthopnea or lightheadedness GI: see HPI : no dysuria or hesitancy Extremities: no joint pain or weakness Skin: no rash All other systems reviewed and negative Physical Exam Physical Exam: General: no distress Eyes: normal inspection, PERLL Respiratory: chest non tender, clear to auscultation, normal breath sounds, no respiratory distress, no accessory muscle use Cardiac: regular rate and rhythm, no rub or gallop, no murmur, no edema, no jvd GI/: active bowel sounds, left lower quadrant tenderness, soft, non distended Extremities: normal range of motion, normal strength, non tender Neuro/Psych: alert and oriented x 3, normal mood and affect Skin: normal color, dry Results & Data Results & Data ([facility]) Vital Signs (Past 12 Hours) Vital Signs Temp Pulse Pulse Resp BP BP Pulse Ox 09/17/20 12:06 36.5 C 55 L 18 151/75 H 92 09/17/20 08:10 36.5 C 55 L 18 172/80 H 172/80 H 94 09/17/20 08:00 58 L 09/17/20 03:45 36.5 C 60 18 161/76 H 97 PG Care Time/CCT Total # of Minutes Spent Total Time Spent with Patient: Total time spent is greater than 50% in coordination of care (as documented) at patient's floor/unit and/or counseling patient: Coding Level of Care Code 69832 Subseq Hosp Care Lvl 3 Diagnoses Diarrhea R19.7 CKD (chronic kidney disease), stage IV N18.4 Hyperkalemia E87.5 PAF (paroxysmal atrial fibrillation) I48.0 Diabetes mellitus E11.9 BPH (benign prostatic hyperplasia) N40.0 Obstructive sleep apnea G47.33 Depression, major, recurrent, in remission F33.40 S/P liver transplant Z94.4 DVT prophylaxis Z29.9
--- NOTE | 2020-09-17 14:22 | Pharmacy Report ---
Glycemic Control Consultation - Date of Service September 17, 2020 - Scope Scope: Glycemic Pharmacist consulted for glycemic control and to write orders per [facility] inpatient glycemic control protocol. - Objective Weight: 70 kg Accgeraldineecks BSG (last 24hrs): 09/16/20 09/16/20 09/16/20 00:02 15:15 16:35 Glucose 189 H 174 H POC Glucose 152 H 09/16/20 09/16/20 09/17/20 20:06 20:32 00:08 Glucose 231 H POC Glucose 225 H 104 H 09/17/20 09/17/20 09/17/20 01:47 04:59 07:58 Glucose 67 L POC Glucose 73 73 09/17/20 12:57 Glucose POC Glucose 167 H Laboratory Data (last 24hrs): 09/16/20 09/16/20 09/16/20 00:02 15:15 20:06 Potassium 5.0 5.2 H 5.5 H Carbon Dioxide 29 29 29 Anion Gap 5.0 4.0 3.0 Creatinine 5.16 H* 4.81 H* D 4.81 H* Est Cr Clr Drug Dosing 11.2 12.7 12.7 09/17/20 01:47 Potassium 4.3 D Carbon Dioxide 29 Anion Gap 4.0 Creatinine 4.78 H* Est Cr Clr Drug Dosing 12.8 - Recent Pertinent Medications Outpatient Anti-diabetic Regimen: * Tresiba 14 units SQ qAM + Novolog 30 units in the morning * A1c = 7.1 % 08/16/20 The patient is currently receiving: * Basal insulin: Lantus 14 units every 12 hours * Correctional Insulin: Novolog Correction per scale ACHS Goal Range: Low 110 mg/dL - High 140 mg/dL Correction Factor: 30 mg/dL/unit * Prandial insulin: Per carb ratio of 1 unit per 10 grams CHO consumed * Oral Agents: Risk Factors for Insulin Resistance: * Steroids: prednisone 5 mg daily (home regimen) * Infection: diverticulitis on Rocephin and Flagyl * Diet: T2DM - Assessment & Plan Assessment & Plan: ASSESSMENT: * Mr Herrera is an 80 y/o M with a PMH of T2DM, liver transplant on prednisone 5n mg daily, and chronic kidney disease (baseline creatinine around 4 mg/dL). * Patient was initially start on Lantus 14 units BID. Blood sugars yesterday were [phone] mg/dL. He received a total of 32 units (28 units of basal and 5 units of bolus). Blood sugar this morning was 67 mg/dL. Will reduce back to home dose of 14 units once daily. * Utilize weight-based stress of 3 Novolog --- had been utilizing weight-based stress of 2 until lunch was elevated at 167 mg/dL indicating patient may require more carbohydrate coverage. PLAN FOR INPATIENT GLYCEMIC CONTROL: * Basal insulin * Lantus 14 units SQ daily * Bolus insulin * NovoLog per scale ACHS or Q6hrs while NPO * Goal Range: Low 110 mg/dL - High 140 mg/dL * Correction Factor: 25 mg/dL/unit * Nutritional / Prandial insulin per carb ratio of 1 unit per 7 grams CHO consumed * Please note that the plan above was derived based on current level of insulin resistance and hospital stress. These recommendations are appropriate for inpatient admission only. Plan of care upon discharge will need to be reassessed to avoid potential outpatient hypo/hyperglycemia. Thank you.
[2020-09-17] MEDS: cefTRIAXone SODIUM 1,000 MG in DEXTROSE 5% 50 ML IV SCH (14:50)
[2020-09-17] MEDS: VENLAFAXINE HCL XR 37.5 MG CAPXR PO SCH (17:39)
[2020-09-17] MEDS: MELATONIN 3 MG TAB PO PRN (21:01)
--- NOTE | 2020-09-17 23:37 | Billing Data ---
Date of Service September 17, 2020 Coding Level of Care Code 86851 Initial Inpt Care Lvl 3
[2020-09-18] MEDS: metroNIDAZOLE 500 MG/100 ML BAG IV SCH ×3 (05:54→22:09)
[2020-09-18 08:26] LABS: BUN Creatinine Ratio 13.5 (10-20); Creatinine Clr Calc Pharmacy 13.3 ml/min; Est GFR (African American) 13.8; Est GFR (Non-African American) 11.9; Potassium 4.3 mmol/L (3.5-5.1)
[2020-09-18 08:31] LABS: Hematocrit (blood only) 31.3 % (42-52); Hemoglobin 10.2 g/dL (14.0-18.0); Mean Corpuscular Hemoglobin 30.7 pg (25-34); Mean Corpuscular Hgb Conc 32.6 g/dL (32-36); Mean Corpuscular Volume 94.3 fL (80-100); Mean Platelet Volume 10.8 fL (7.4-10.4); Platelet Count 123 K/uL (130-400); Platelet Estimate Decreased (Normal); RDW Coefficient of Variation 14.8 % (11.5-14.5); RDW Standard Deviation 51.2 fL (36.4-46.3); Red Blood Count 3.32 M/uL (4.7-6.1); White Blood Count 5.28 K/uL (4.8-10.8)
[2020-09-18] MEDS: INSULIN ASPART 100 UNITS/ML 3 ML PEN SC SCH ×4 (08:33→22:21)
[2020-09-18] MEDS: FAMOTIDINE 20 MG in SYRINGE 3 ML IV SCH ×2 (08:35→22:09)
[2020-09-18] MEDS: PANTOprazole 40 MG in SYRINGE 0 ML IV SCH ×2 (08:35→22:09)
[2020-09-18] MEDS: ursodioL 300 MG CAP PO SCH ×2 (08:36→22:11)
[2020-09-18] MEDS: FLUDROCORTISONE ACETATE 0.1 MG TAB PO SCH (08:37)
[2020-09-18] MEDS: ASPIRIN 81 MG ECTAB PO SCH (08:37)
[2020-09-18] MEDS: TAMSULOSIN HCL 0.4 MG CAP PO SCH (08:37)
[2020-09-18] MEDS: DONEPEZIL HCL 10 MG TAB PO SCH (08:37)
[2020-09-18] MEDS: APIXABAN 2.5 MG TAB PO SCH ×2 (08:37→22:11)
[2020-09-18] MEDS: predniSONE 5 MG TAB PO SCH (08:38)
[2020-09-18] MEDS: amLODIPine BESYLATE 5 MG TAB PO SCH (08:38)
[2020-09-18] MEDS: CALCIUM CARBONATE 1250MG TAB PO SCH ×2 (08:38→22:11)
[2020-09-18] MEDS: TRIAMCINOLONE ACET 0.1% CR 15 GM TUBE TOP SCH ×2 (08:38→22:11)
[2020-09-18] MEDS: TACROLIMUS 1 MG CAP PO SCH ×2 (08:39→22:09)
[2020-09-18] MEDS: CALCITRIOL 0.25 MCG CAPSULE PO SCH (08:39)
[2020-09-18] MEDS: METOPROLOL SUCC 50MG EXT REL TAB PO SCH ×2 (08:41→22:11)
[2020-09-18] MEDS ORDERED: INSULIN GLARGINE SOLOSTAR 100 UNITS/ML 3 ML PEN SC SCH ×2 (09:00)
--- NOTE | 2020-09-18 10:06 | Nephrology Progress Note ---
Date of Service September 18, 2020 Assessment & Plan (1) Acute kidney injury: * Nonoliguric NAM due to dehydration * Cr trending down w/ IV hydration. Electrolyte balance is acceptable. 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 Will continue gentle hydration * Will provide 1 L 0.9 NS at 80 cc/hr today and then heplock IV * Monitor PRP (2) CKD (chronic kidney disease), stage IV: * Progressive rise in Cr likely related to CNI injury w/ underlying DM, HTN and microvascular disease. 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 He is scheduled for vascular surgery evaluation to create AVF * Recommend protecting nondominant arm for future vascular access placement (3) Hyperkalemia: * Corrected * EMR shows h/o orthostasis as reason for starting Florinef * BP drops by 13 mmHg and HR increases by 18 bpm on orthostatic testing. Recommend continuing Florinef for BP support and to control serum potassium. May need to accept mild hypertension while supine or seated (4) Diarrhea: * Sigmoid diverticulitis on noncontrast abdominal CT * Subjectively improved w/ IV Ceftriaxone and Metronidazole * Stool for E. Coli toxin, O&P has been negative (5) S/P liver transplant: * s/p liver transplant 2004 at [facility] due to PSC. Current immunosuppressive regimen consists of Tacrolimus and low dose prednisone Admission and Anticipated Discharge Date Admission Date: September 16, 2020 Subjective Mr. Herrera was seen & examined in his hospital room this morning. He reports continued diarrhea but staff readiness officer records only one BM overnight. Mr. Herrera is tolerating IV hydration without dyspnea or LE swelling. Review of Systems Constitutional: no fever Eyes: no problem reported Ear, Nose, Mouth, Throat: no problem reported Respiratory: no dyspnea Cardiovascular: no chest pain, no palpitations and no edema Gastrointestinal: + nausea and + diarrhea/loose stools; no abdominal pain Genitourinary: no dysuria, no urinary hesitancy and no hematuria Musculoskeletal: no back pain Integumentary: no rash Neurologic: no dizziness and no confusion Physical Exam Constitutional: + frail appearing; not in distress Eyes: PERRL, conjunctivae normal, anicteric sclerae ENMT: Nose: + dry nasal mucous membranes Neck: trachea midline, no thyromegaly Respiratory: normal respiratory effort, lungs clear to auscultation Cardiovascular: Rate/Rhythm: + irregularly irregular Gastrointestinal (Abdomen): Inspection/Auscultation: + hypoactive bowel sounds Percussion/Palpation: abdomen nontender and no guarding Musculoskeletal: Extremities: no cyanosis (poor skin turgor, + skin tenting) Skin: + turgor decreased Neurologic: awake; not confused [place] Results & Data ([facility]) Vital Signs (Past 12 Hours) Vital Signs Temp Pulse Pulse Resp BP Pulse Ox 09/18/20 07:42 36.9 C 78 20 97 09/18/20 03:44 36.5 C 64 18 154/79 H 95 09/17/20 23:23 36.5 C 64 18 135/70 95 09/17/20 23:14 54 L Laboratory Tests 09/18/20 09/18/20 07:04 07:04 WBC 5.28 Hgb 10.2 L Hct 31.3 L Plt Count 123 L Sodium 137 Potassium 4.3 Chloride 105 Carbon Dioxide 28 BUN 59 H Creatinine 4.37 H D Glucose 90 PG Care Time/CCT Total # of Minutes Spent Total Time Spent with Patient: Total time spent is greater than 50% in coordination of care (as documented) at patient's floor/unit and/or counseling patient: Coding Level of Care Code 95842 Subseq Hosp Care Lvl 3 Diagnoses Acute kidney injury N17.9 CKD (chronic kidney disease), stage IV N18.4 Hyperkalemia E87.5 Diarrhea R19.7 S/P liver transplant Z94.4
[2020-09-18] MEDS ORDERED: SODIUM CHLORIDE 0.9% 1000ML 1,000 ML IV SCH (10:15)
[2020-09-18] MEDS: ONDANSETRON INJ 2 MG/ML 2 ML VIAL IV PRN ×3 (10:26→23:19)
--- NOTE | 2020-09-18 11:31 | Hospitalist Progress Note ---
Date of Service September 18, 2020 Assessment & Plan (1) Diarrhea: Ongoing diarrhea since 08/19, now improving. Patient was seen by GI outpatient on 09/15. CT without contrast: Uncomplicated diverticulitis. No free air or abscess. No bowel obstruction. 09/08/2020 stool study negative for Salmonella, Shigella, Campylobacter, E. coli toxin C. difficile negative Continue Rocephin/Flagyl Clear liquid diet for today - if he manages to tolerate today without vomiting, will advance tomorrow. Will likely need colonoscopy when infection has resolved. (2) CKD (chronic kidney disease), stage IV: NAM on CKD. 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 Last appointment with Dr. Rider in August patient was being set up for vascular referral for AVF placement Creatinine on admission worsened from 4.33 to 5.23 on admission - now improving Given IVF however potassium was trending up so 1 mg Bumex given 09/16. Resumed gentle hydration afterwards and continue for now per nephrology Echo 08/19/2020: Normal LV systolic function, ejection fraction 55-60%. Moderate concentric LVH. Last admission failure was due to Afib rather than a CHF exacerbation. Does not appear patient has history of CHF Strict Is & Os Consulted nephrology (3) BPH (benign prostatic hyperplasia): Continue tamsulosin (4) Depression, major, recurrent, in remission: Continue venlafaxine (5) Hyperkalemia: History of elevated potassium, maintains a low potassium diet. 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 Herrera is feeling better today, one bout of diarrhea this morning. No further vomiting since yesterday. No further abdominal pain. ROS Constitutional: no chills, aches, sweats or fever Respiratory: no sob,cough, sputum, or wheezing Cardiac: no chest pain, palpitations, edema, orthopnea or lightheadedness GI: no abdominal pain, nausea, vomiting, diarrhea or constipation : no dysuria or hesitancy Extremities: no joint pain or weakness Skin: no rash All other systems reviewed and negative Physical Exam Physical Exam: General: no distress Eyes: normal inspection, PERLL Respiratory: chest non tender, clear to auscultation, normal breath sounds, no respiratory distress, no accessory muscle use Cardiac: regular rate and rhythm, no rub or gallop, no murmur, no edema, no jvd GI/: active bowel sounds, no abd pain or tenderness, soft, non distended Extremities: normal range of motion, normal strength, non tender Neuro/Psych: alert and oriented x 3, normal mood and affect Skin: normal color, dry Results & Data Results & Data ([facility]) Vital Signs (Past 12 Hours) Vital Signs Temp Pulse Pulse Resp BP Pulse Ox 09/18/20 08:50 58 L 09/18/20 07:42 36.9 C 78 20 97 09/18/20 03:44 36.5 C 64 18 154/79 H 95 09/17/20 23:23 36.5 C 64 18 135/70 95 PG Care Time/CCT Total # of Minutes Spent Total Time Spent with Patient: Total time spent is greater than 50% in coordination of care (as documented) at patient's floor/unit and/or counseling patient: Coding Level of Care Code 96203 Subseq Hosp Care Lvl 3 Diagnoses Diarrhea R19.7 CKD (chronic kidney disease), stage IV N18.4 BPH (benign prostatic hyperplasia) N40.0 Depression, major, recurrent, in remission F33.40 Hyperkalemia E87.5 Diabetes mellitus E11.9 PAF (paroxysmal atrial fibrillation) I48.0 Obstructive sleep apnea G47.33 S/P liver transplant Z94.4
--- NOTE | 2020-09-18 12:52 | Pharmacy Report ---
Pharmacy Glycemic Short Note 2 - Date of Service September 18, 2020 - Glycemic Short BSG Results (Last 24 hours): 09/17/20 09/17/20 09/17/20 12:57 16:33 16:35 Glucose POC Glucose 167 H 69 L* 73 09/17/20 09/18/20 09/18/20 20:13 04:04 04:27 Glucose POC Glucose 87 68 L* 88 09/18/20 09/18/20 09/18/20 06:02 07:04 07:47 Glucose 90 POC Glucose 106 H 101 H 09/18/20 11:52 Glucose POC Glucose 89 OUTPATIENT ANTIDIABETIC REGIMEN: * Tresiba 14 units SC qAM + Novolog 30 units SC qAM * A1c = 7.1% (08/16/2020) ASSESSMENT: 09/18: * Lawrence received a total of 18 units of insulin yesterday * 12 units basal + 6 units bolus * BSGs were 31-959-30-73-87 mg/dL - on the lower end * Overnight patient experienced hypoglycemia requiring treatment with 15 gms of CHO * Fasting BSG was subsequently 101 mg/dL * Decreased basal insulin by ~ 20% * Novolog parameters were loosened by overnight resident - will continue with these for now * Lunchtime BSG was 89 mg/dL - will trend and loosed CF/CR if needed tonight PLAN FOR INPATIENT GLYCEMIC CONTROL: * Basal insulin - decreased ~20% * Lantus 10 units SQ qAM * Bolus insulin - loosened CF/CR * NovoLog per scale ACHS or Q6hrs while NPO * Goal Range: Low 110 mg/dL - High 140 mg/dL * Correction Factor: 30 mg/dL/unit * Nutritional / Prandial insulin per carb ratio of 1 unit per 10 grams CHO consumed PLAN FOR DISCHARGE: * HbA1c = 7.1% which is at goal given this patient's age and comorbidities. Recommend continuing current outpatient regimen as long as patient is not experiencing any signs/symptoms of hypoglycemia.
[2020-09-18] MEDS: cefTRIAXone SODIUM 1,000 MG in DEXTROSE 5% 50 ML IV SCH (15:22)
[2020-09-18] MEDS ORDERED: ACETAMINOPHEN 325 MG TAB PO PRN (15:52)
[2020-09-18] MEDS: VENLAFAXINE HCL XR 37.5 MG CAPXR PO SCH (17:06)
[2020-09-18] MEDS: MELATONIN 3 MG TAB PO PRN (22:11)
[2020-09-19] MEDS: metroNIDAZOLE 500 MG/100 ML BAG IV SCH ×3 (06:13→21:13)
[2020-09-19 07:26] LABS: Hematocrit (blood only) 34.6 % (42-52); Hemoglobin 11.5 g/dL (14.0-18.0); Mean Corpuscular Hgb Conc 33.2 g/dL (32-36); Mean Corpuscular Volume 93.3 fL (80-100); Mean Platelet Volume 9.8 fL (7.4-10.4); Platelet Count 122 K/uL (130-400); RDW Coefficient of Variation 14.8 % (11.5-14.5); RDW Standard Deviation 50.5 fL (36.4-46.3); Red Blood Count 3.71 M/uL (4.7-6.1); White Blood Count 5.98 K/uL (4.8-10.8)
[2020-09-19] MEDS: ursodioL 300 MG CAP PO SCH ×2 (07:27→20:57)
[2020-09-19] MEDS: DONEPEZIL HCL 10 MG TAB PO SCH (07:28)
[2020-09-19] MEDS: ASPIRIN 81 MG ECTAB PO SCH (07:28)
[2020-09-19] MEDS: TRIAMCINOLONE ACET 0.1% CR 15 GM TUBE TOP SCH ×3 (07:28→21:16)
[2020-09-19] MEDS: TAMSULOSIN HCL 0.4 MG CAP PO SCH (07:28)
[2020-09-19] MEDS: APIXABAN 2.5 MG TAB PO SCH ×2 (07:28→20:56)
[2020-09-19] MEDS: FLUDROCORTISONE ACETATE 0.1 MG TAB PO SCH (07:28)
[2020-09-19] MEDS: amLODIPine BESYLATE 5 MG TAB PO SCH (07:28)
[2020-09-19] MEDS: predniSONE 5 MG TAB PO SCH (07:29)
[2020-09-19] MEDS: CALCIUM CARBONATE 1250MG TAB PO SCH ×2 (07:29→20:56)
[2020-09-19] MEDS: PANTOprazole 40 MG in SYRINGE 0 ML IV SCH ×2 (07:29→20:57)
[2020-09-19] MEDS: TACROLIMUS 1 MG CAP PO SCH ×2 (07:29→20:59)
[2020-09-19] MEDS: CALCITRIOL 0.25 MCG CAPSULE PO SCH (07:30)
[2020-09-19] MEDS: METOPROLOL SUCC 50MG EXT REL TAB PO SCH ×2 (07:30→20:58)
[2020-09-19] MEDS: FAMOTIDINE 20 MG in SYRINGE 3 ML IV SCH ×2 (07:38→21:05)
[2020-09-19 07:58] LABS: Albumin Level 2.8 gm/dl (3.4-5.0); BUN Creatinine Ratio 11.2 (10-20); Bilirubin Direct 0.1 mg/dl (0-0.2); Calcium 7.9 mg/dl (8.5-10.1); Creatinine Clr Calc Pharmacy 14.5 ml/min; Est GFR (African American) 15.5; Est GFR (Non-African American) 13.4; Potassium 3.9 mmol/L (3.5-5.1)
[2020-09-19 08:01] LABS: Bilirubin,Total 0.4 mg/dl (0.2-1); Total Protein 6.1 gm/dl (6.4-8.2)
[2020-09-19] MEDS: INSULIN GLARGINE SOLOSTAR 100 UNITS/ML 3 ML PEN SC SCH (08:35)
[2020-09-19] MEDS: INSULIN ASPART 100 UNITS/ML 3 ML PEN SC SCH ×4 (08:35→21:00)
[2020-09-19] MEDS ORDERED: PROMETHAZINE HCL 6.25 MG in SODIUM CHLORIDE 0.9% 50 ML IV STA (09:29)
--- NOTE | 2020-09-19 10:09 | Nephrology Progress Note ---
Date of Service September 19, 2020 Assessment & Plan (1) Acute kidney injury: * Nonoliguric NAM due to dehydration - resolved * Electrolyte balance is acceptable. No acute indication for [facility] at this time * Heplock IV and encourage oral hydration * Monitor PRP * No further Nephrology evaluation indicated at this time. Will sign off. Please schedule outpatient Nephrology follow up w/ Dr. Rider ([phone]) within 7 - 14 days of hospital discharge (2) CKD (chronic kidney disease), stage IV: * Progressive rise in Cr likely related to CNI injury w/ underlying DM, HTN and microvascular disease. Baseline Cr 4.0 - 4.3 * Patient has completed outpatient [facility] classes. He is scheduled for vascular surgery evaluation to create AVF * Recommend protecting nondominant arm for future vascular access placement (3) Hyperkalemia: * Corrected * EMR shows h/o orthostasis as reason for starting Florinef * BP drops by 13 mmHg and HR increases by 18 bpm on orthostatic testing. Recommend continuing Florinef for BP support and to control serum potassium. May need to accept mild hypertension while supine or seated (4) Diarrhea: * Sigmoid diverticulitis on noncontrast abdominal CT * Continue IV Ceftriaxone and Metronidazole * Stool for E. 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 Current immunosuppressive regimen consists of Tacrolimus and low dose prednisone Admission and Anticipated Discharge Date Admission Date: September 16, 2020 Subjective Mr. Herrera was seen & examined in his hospital room this morning. He reports one episode of emesis and continued abdominal discomfort and diarrhea. He denies dyspnea or LE swelling. Review of Systems Constitutional: no fever Eyes: no problem reported Ear, Nose, Mouth, Throat: no problem reported Respiratory: no dyspnea Cardiovascular: no chest pain, no palpitations and no edema Gastrointestinal: + abdominal pain, + vomiting and + diarrhea/loose stools Genitourinary: no dysuria, no urinary hesitancy and no hematuria Musculoskeletal: no back pain Integumentary: no rash Neurologic: no dizziness and no confusion Physical Exam Constitutional: + frail appearing; not in distress Eyes: PERRL, conjunctivae normal, anicteric sclerae ENMT: Nose: + dry nasal mucous membranes Neck: trachea midline, no thyromegaly Respiratory: normal respiratory effort, lungs clear to auscultation Cardiovascular: Rate/Rhythm: + irregularly irregular Gastrointestinal (Abdomen): Inspection/Auscultation: + hypoactive bowel sounds Percussion/Palpation: abdomen nontender and no guarding Musculoskeletal: Extremities: no cyanosis (poor skin turgor, + skin tenting) Skin: + turgor decreased Neurologic: awake; not confused [facility] Results & Data ([place]) Vital Signs (Past 12 Hours) Vital Signs Temp Pulse Pulse Resp BP BP Pulse Ox 09/19/20 07:56 36.9 C 83 20 145/88 H 95 09/19/20 07:52 36.6 C 58 L 18 94/47 L 90/48 L 90 09/19/20 02:51 36.6 C 103 H 20 159/83 H 90 09/19/20 02:46 60 09/18/20 22:30 163/70 H Laboratory Results Laboratory Tests 09/19/20 09/19/20 07:12 07:12 WBC 5.98 Hgb 11.5 L Hct 34.6 L Plt Count 122 L Sodium 138 Potassium 3.9 Chloride 108 H Carbon Dioxide 24 BUN 44 H Creatinine 3.97 H D Glucose 88 PG Care Time/CCT Total # of Minutes Spent Total Time Spent with Patient: Total time spent is greater than 50% in coordination of care (as documented) at patient's floor/unit and/or counseling patient: Coding Level of Care Code 41354 Subseq Hosp Care Lvl 3 Diagnoses Acute kidney injury N17.9 CKD (chronic kidney disease), stage IV N18.4 Hyperkalemia E87.5 Diarrhea R19.7 S/P liver transplant Z94.4
--- NOTE | 2020-09-19 13:35 | Hospitalist Progress Note ---
Date of Service September 19, 2020 Assessment & Plan (1) Diarrhea: Ongoing diarrhea since 08/19, now improving. Patient was seen by GI outpatient on 09/15. CT without contrast: Uncomplicated diverticulitis. No free air or abscess. No bowel obstruction. 09/08/2020 stool study negative for Salmonella, Shigella, Campylobacter, E. coli toxin C. difficile negative Continue Rocephin/Flagyl Will try advancing diet to fulls but given his nausea he may not be able to tolerate Will likely need colonoscopy when infection has resolved. May need endoscopy as well if ongoing nausea (2) CKD (chronic kidney disease), stage IV: NAM on CKD. 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 Last appointment with Dr. Rider in August patient was being set up for vascular referral for AVF placement Creatinine on admission worsened from 4.33 to 5.23 on admission - now back at baseline at 3.97 Given IVF however potassium was trending up so 1 mg Bumex given 09/16. Resumed gentle hydration afterwards - can dc now that creat is closer to baseline Echo 08/19/2020: Normal LV systolic function, ejection fraction 55-60%. Moderate concentric LVH. Last admission failure was due to Afib rather than a CHF exacerbation. Does not appear patient has history of CHF Strict Is & Os Consulted nephrology (3) BPH (benign prostatic hyperplasia): Continue tamsulosin (4) Depression, major, recurrent, in remission: Continue venlafaxine (5) Hyperkalemia: History of elevated potassium, maintains a low potassium diet. 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 Given 6.25 mg of phenergan this morning x 1 dose which helped. Admission and Anticipated Discharge Date Admission Date: September 16, 2020 Subjective Mr. Herrera continues to have nausea which is causing him to be quite miserable. He also continues to have small amounts of diarrhea. He denies any abdominal pain. On recheck later in the morning after a small dose of phenergan he was sleeping and when awoken denied further nausea. His significant other was updated at bedside ROS Constitutional: no chills, aches, sweats or fever Respiratory: no sob,cough, sputum, or wheezing Cardiac: no chest pain, palpitations, edema, orthopnea or lightheadedness GI: see HPI : no dysuria or hesitancy Extremities: no joint pain or weakness Skin: no rash All other systems reviewed and negative Physical Exam Physical Exam: General: unwell appearing Eyes: normal inspection, PERLL Respiratory: chest non tender, clear to auscultation, normal breath sounds, no respiratory distress, no accessory muscle use Cardiac: regular rate and rhythm, no rub or gallop, systolic murmur, no edema, no jvd GI/: active bowel sounds, no abd pain or tenderness, soft, non distended Extremities: normal range of motion, normal strength, non tender Neuro/Psych: alert and oriented x 3, normal mood and affect Skin: normal color, dry Results & Data Results & Data ([facility]) Vital Signs (Past 12 Hours) Vital Signs Temp Pulse Pulse Resp BP BP Pulse Ox 09/19/20 12:11 36.7 C 78 16 150/81 H 93 09/19/20 07:56 36.9 C 83 20 145/88 H 95 09/19/20 07:52 36.6 C 58 L 18 94/47 L 90/48 L 90 09/19/20 07:25 92 H 09/19/20 02:51 36.6 C 103 H 20 159/83 H 90 09/19/20 02:46 60 PG Care Time/CCT Total # of Minutes Spent Total Time Spent with Patient: Total time spent is greater than 50% in coordination of care (as documented) at patient's floor/unit and/or counseling patient: Coding Level of Care Code 59992 Subseq Hosp Care Lvl 3 Diagnoses Diarrhea R19.7 CKD (chronic kidney disease), stage IV N18.4 BPH (benign prostatic hyperplasia) N40.0 Depression, major, recurrent, in remission F33.40 Hyperkalemia E87.5 Diabetes mellitus E11.9 PAF (paroxysmal atrial fibrillation) I48.0 Obstructive sleep apnea G47.33 S/P liver transplant Z94.4 Nausea R11.0
[2020-09-19] MEDS: ONDANSETRON INJ 2 MG/ML 2 ML VIAL IV SCH ×3 (14:16→21:05)
[2020-09-19] MEDS: cefTRIAXone SODIUM 1,000 MG in DEXTROSE 5% 50 ML IV SCH (15:57)
[2020-09-19] MEDS: VENLAFAXINE HCL XR 37.5 MG CAPXR PO SCH (16:56)
[2020-09-19] MEDS: MELATONIN 3 MG TAB PO PRN (21:06)
[2020-09-20] MEDS: ONDANSETRON INJ 2 MG/ML 2 ML VIAL IV SCH ×2 (01:08→05:44)
[2020-09-20] MEDS: metroNIDAZOLE 500 MG/100 ML BAG IV SCH ×3 (05:44→22:39)
[2020-09-20] MEDS ORDERED: ONDANSETRON INJ 2 MG/ML 2 ML VIAL IV PRN (06:01)
--- NOTE | 2020-09-20 06:57 | Communication Note ---
Date of Service: September 20, 2020 Notified by nursing that while administering scheduled Zofran this AM, pt's heart rate dropped to 35 but quickly bounced back. A stat EKG was ordered which showed pt was no longer in atrial fibrillation but had sinus bradycardia with qtc of 447. His morning metoprolol was held and the zofran made PRN. Consider CARDS consult? 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
[2020-09-20] MEDS: INSULIN ASPART 100 UNITS/ML 3 ML PEN SC SCH ×4 (08:05→20:48)
[2020-09-20] MEDS: ASPIRIN 81 MG ECTAB PO SCH (08:07)
[2020-09-20] MEDS: TAMSULOSIN HCL 0.4 MG CAP PO SCH (08:07)
[2020-09-20] MEDS: APIXABAN 2.5 MG TAB PO SCH ×2 (08:07→20:45)
[2020-09-20] MEDS: ursodioL 300 MG CAP PO SCH ×2 (08:07→20:45)
[2020-09-20] MEDS: DONEPEZIL HCL 10 MG TAB PO SCH (08:07)
[2020-09-20] MEDS: FLUDROCORTISONE ACETATE 0.1 MG TAB PO SCH (08:07)
[2020-09-20] MEDS: TRIAMCINOLONE ACET 0.1% CR 15 GM TUBE TOP SCH ×2 (08:07→20:43)
[2020-09-20] MEDS: amLODIPine BESYLATE 5 MG TAB PO SCH (08:08)
[2020-09-20] MEDS: FAMOTIDINE 20 MG in SYRINGE 3 ML IV SCH ×2 (08:08→20:42)
[2020-09-20] MEDS: predniSONE 5 MG TAB PO SCH (08:08)
[2020-09-20] MEDS: INSULIN GLARGINE SOLOSTAR 100 UNITS/ML 3 ML PEN SC SCH (08:08)
[2020-09-20] MEDS: CALCIUM CARBONATE 1250MG TAB PO SCH ×2 (08:08→20:44)
[2020-09-20] MEDS: TACROLIMUS 1 MG CAP PO SCH ×2 (08:09→20:46)
[2020-09-20] MEDS: PANTOprazole 40 MG in SYRINGE 0 ML IV SCH ×2 (08:09→20:42)
[2020-09-20] MEDS: CALCITRIOL 0.25 MCG CAPSULE PO SCH (08:09)
[2020-09-20 08:42] LABS: Hematocrit (blood only) 34.4 % (42-52); Hemoglobin 11.6 g/dL (14.0-18.0); Mean Corpuscular Hemoglobin 31.3 pg (25-34); Mean Corpuscular Hgb Conc 33.7 g/dL (32-36); Mean Corpuscular Volume 92.7 fL (80-100); Mean Platelet Volume 10.6 fL (7.4-10.4); Platelet Count 157 K/uL (130-400); RDW Coefficient of Variation 15.1 % (11.5-14.5); RDW Standard Deviation 51.4 fL (36.4-46.3); Red Blood Count 3.71 M/uL (4.7-6.1); White Blood Count 6.75 K/uL (4.8-10.8)
[2020-09-20 09:30] LABS: BUN Creatinine Ratio 10.4 (10-20); Calcium 7.8 mg/dl (8.5-10.1); Creatinine Clr Calc Pharmacy 14.3 ml/min; Est GFR (African American) 14.8; Est GFR (Non-African American) 12.7; Potassium 4.3 mmol/L (3.5-5.1)
[2020-09-20] MEDS ORDERED: METOPROLOL SUCC 50MG EXT REL TAB PO STA (12:05)
--- NOTE | 2020-09-20 12:41 | Hospitalist Progress Note ---
Date of Service September 20, 2020 Assessment & Plan (1) Diverticulosis of colon: Ongoing diarrhea since 08/19, now improving. Patient was seen by GI outpatient on 09/15. CT without contrast: Uncomplicated diverticulitis. No free air or abscess. No bowel obstruction. 09/08/2020 stool study negative for Salmonella, Shigella, Campylobacter, E. coli toxin C. difficile negative Continue Rocephin/Flagyl Tolerating full liquids - will advance to low fat/low fiber Will likely need colonoscopy when infection has resolved. Patient's reports that he has had multiple bouts with diverticulitis in the past. (2) Diarrhea: Improving, as above, (3) CKD (chronic kidney disease), stage IV: NAM on CKD. 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 Last appointment with Dr. Rider in August patient was being set up for vascular referral for AVF placement Creatinine on admission worsened from 4.33 to 5.23 on admission - now back at baseline Echo 08/19/2020: Normal LV systolic function, ejection fraction 55-60%. Moderate concentric LVH. Last admission failure was due to Afib rather than a CHF exacerbation. Does not appear patient has history of CHF Strict Is & Os Consulted nephrology (4) Bradycardia: Overnight 1-3 minute bouts of bradycadia x 3. Appears to be sinus. No symptoms. Will decrease metoprolol to 50 mg this morning and hold evening dose for now, A.fib has been rate controlled when he is in that rhythm. Likely this is secondary to not wearing CPAP at night. Discussed with nursing, they will encourage patient to wear CPAP tonight. (5) BPH (benign prostatic hyperplasia): Continue tamsulosin (6) Depression, major, recurrent, in remission: Continue venlafaxine (7) Hyperkalemia: History of elevated potassium, maintains a low potassium diet. 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 Zofran prn. Advanced diet Dispo: if tolerating diet, likely home tomorrow. Awaiting PT/OT evals. Admission and Anticipated Discharge Date Admission Date: September 16, 2020 Subjective Mr. Herrera is feeling much better today. No further nausea. No abdominal pain. Bowels have slowed. ROS Constitutional: no chills, aches, sweats or fever Respiratory: no sob,cough, sputum, or wheezing Cardiac: no chest pain, palpitations, edema, orthopnea or lightheadedness GI: no abdominal pain, nausea, vomiting, diarrhea or constipation : no dysuria or hesitancy Extremities: no joint pain or weakness Skin: no rash All other systems reviewed and negative Physical Exam Physical Exam: General: no distress Eyes: normal inspection, PERLL Respiratory: chest non tender, clear to auscultation, normal breath sounds, no respiratory distress, no accessory muscle use Cardiac: regular rate and rhythm, no rub or gallop, no murmur, no edema, no jvd GI/: active bowel sounds, no abd pain or tenderness, soft, non distended Extremities: normal range of motion, normal strength, non tender Neuro/Psych: alert and oriented x 3, normal mood and affect Skin: normal color, dry Results & Data Results & Data ([facility]) Vital Signs (Past 12 Hours) Vital Signs Temp Pulse Pulse Resp BP BP Pulse Ox 09/20/20 11:50 36.3 C L 55 L 18 175/81 H 94 09/20/20 07:54 36.9 C 67 18 182/91 H 97 09/20/20 07:17 60 09/20/20 03:56 36.4 C L 56 L 18 170/84 H 96 PG Care Time/CCT Total # of Minutes Spent Total Time Spent with Patient: Total time spent is greater than 50% in coordination of care (as documented) at patient's floor/unit and/or counseling patient: Coding Level of Care Code 68912 Subseq Hosp Care Lvl 3 Diagnoses Diverticulosis of colon K57.30 Diarrhea R19.7 CKD (chronic kidney disease), stage IV N18.4 Bradycardia R00.1 BPH (benign prostatic hyperplasia) N40.0 Depression, major, recurrent, in remission F33.40 Hyperkalemia E87.5 Diabetes mellitus E11.9 PAF (paroxysmal atrial fibrillation) I48.0 Obstructive sleep apnea G47.33 S/P liver transplant Z94.4 Nausea R11.0
[2020-09-20] MEDS: cefTRIAXone SODIUM 1,000 MG in DEXTROSE 5% 50 ML IV SCH (14:36)
[2020-09-20] MEDS: VENLAFAXINE HCL XR 37.5 MG CAPXR PO SCH (17:09)
--- NOTE | 2020-09-20 22:07 | Communication Note ---
Date of Service: September 20, 2020 Notified overnight that pt had a 14 beat run of ventricular tachycardia overnight (asymptomatic) and had also flipped back into atrial fibrillation at a pproximately 8:45pm. Noted from chart review that his metoprolol dosing had been decreased to 50mg in the AM only. No new orders were placed as pt was asymptomatic and was rate-controlled. Given the episodes of bradycardia a day ago, with now ventricular tachycardia and the flip back into atrial fibrillation, would STRONGLY recommend a cardiology consult. 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
[2020-09-21] MEDS: metroNIDAZOLE 500 MG/100 ML BAG IV SCH ×3 (06:30→22:56)
--- NOTE | 2020-09-21 06:39 | Electrocardiogram Report ---
Test Reason : Blood Pressure : / mmHG Vent. Rate : 059 BPM Atrial Rate : 059 BPM P-R Int : 142 ms QRS Dur : 102 ms QT Int : 452 ms P-R-T Axes : 051 -02 071 degrees QTc Int : 447 ms Sinus bradycardia with occasional Premature atrial complexes Possible Anterior infarct (cited on or before 16-SEP-2020) Abnormal ECG When compared with ECG of 16-SEP-2020 00:00, Sinus rhythm has replaced Atrial fibrillation Confirmed by Moises Bernal ([id number]) on 09/21/2020 6:39:05 AM Referred By: REFERRED SELF Confirmed By:Moises Bernal
[2020-09-21 06:44] LABS: Basophils # (auto) 0.01 K/uL (0-0.2); Basophils % (auto) 0.1 %; Eosinophils # (auto) 0.17 K/uL (0-0.5); Eosinophils % (auto) 2.4 %; Hematocrit (blood only) 35.4 % (42-52); Hemoglobin 11.9 g/dL (14.0-18.0); Immature Granulocytes # (auto) 0.02 K/uL (0.00-0.02); Immature Granulocytes % (auto) 0.3 %; Lymphocytes # (auto) 1.82 K/uL (1.2-3.4); Lymphocytes % (auto) 26.2 %; Mean Corpuscular Hgb Conc 33.6 g/dL (32-36); Mean Corpuscular Volume 92.2 fL (80-100); Monocytes # (auto) 0.38 K/uL (0.11-0.59); Monocytes % (auto) 5.5 %; Neutrophils # (auto) 4.54 K/uL (1.4-6.5); Neutrophils % (auto) 65.5 %; Platelet Count 140 K/uL (130-400); RDW Standard Deviation 50.7 fL (36.4-46.3); Red Blood Count 3.84 M/uL (4.7-6.1); White Blood Count 6.94 K/uL (4.8-10.8)
[2020-09-21 07:15] LABS: BUN Creatinine Ratio 10.6 (10-20); Calcium 7.6 mg/dl (8.5-10.1); Creatinine Clr Calc Pharmacy 14.3 ml/min; Est GFR (African American) 14.8; Est GFR (Non-African American) 12.7; Potassium 3.9 mmol/L (3.5-5.1)
[2020-09-21] MEDS: FAMOTIDINE 20 MG in SYRINGE 3 ML IV SCH (07:40)
[2020-09-21] MEDS: PANTOprazole 40 MG in SYRINGE 0 ML IV SCH (07:40)
[2020-09-21] MEDS: DONEPEZIL HCL 10 MG TAB PO SCH (07:41)
[2020-09-21] MEDS: TRIAMCINOLONE ACET 0.1% CR 15 GM TUBE TOP SCH ×2 (07:41→20:22)
[2020-09-21] MEDS: ursodioL 300 MG CAP PO SCH ×2 (07:41→20:21)
[2020-09-21] MEDS: ASPIRIN 81 MG ECTAB PO SCH (07:41)
[2020-09-21] MEDS: APIXABAN 2.5 MG TAB PO SCH ×2 (07:42→20:21)
[2020-09-21] MEDS: FLUDROCORTISONE ACETATE 0.1 MG TAB PO SCH (07:42)
[2020-09-21] MEDS: predniSONE 5 MG TAB PO SCH (07:42)
[2020-09-21] MEDS: CALCIUM CARBONATE 1250MG TAB PO SCH ×2 (07:42→20:20)
[2020-09-21] MEDS: TAMSULOSIN HCL 0.4 MG CAP PO SCH (07:42)
[2020-09-21] MEDS: amLODIPine BESYLATE 5 MG TAB PO SCH (07:42)
[2020-09-21] MEDS: TACROLIMUS 1 MG CAP PO SCH ×2 (07:43→20:22)
[2020-09-21] MEDS: CALCITRIOL 0.25 MCG CAPSULE PO SCH (07:43)
[2020-09-21] MEDS ORDERED: METOPROLOL SUCC 50MG EXT REL TAB PO ONE (08:12)
[2020-09-21] MEDS: INSULIN ASPART 100 UNITS/ML 3 ML PEN SC SCH ×4 (08:34→22:57)
[2020-09-21] MEDS: INSULIN GLARGINE SOLOSTAR 100 UNITS/ML 3 ML PEN SC SCH (08:35)
[2020-09-21] MEDS ORDERED: NovoLIN-N (NPH) PER UNIT CHARGE SQ ONE (10:00)
--- NOTE | 2020-09-21 14:09 | Hospitalist Progress Note ---
Date of Service September 21, 2020 Assessment & Plan (1) Diverticulosis of colon: Ongoing diarrhea since 08/19, now improving. Patient was seen by GI outpatient on 09/15. CT without contrast: Uncomplicated diverticulitis. No free air or abscess. No bowel obstruction. 09/08/2020 stool study negative for Salmonella, Shigella, Campylobacter, E. coli toxin C. difficile negative Continue Rocephin/Flagyl Tolerating low fat/low fiber Will likely need colonoscopy when infection has resolved. Patient's reports that he has had multiple bouts with diverticulitis in the past. (2) Diarrhea: Improving, as above, (3) CKD (chronic kidney disease), stage IV: NAM on CKD. 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 Last appointment with Dr. Rider in August patient was being set up for vascular r eferral for AVF placement Creatinine on admission to 5.23 - now back at baseline which is 4-4.3 Echo 08/19/2020: Normal LV systolic function, ejection fraction 55-60%. Moderate concentric LVH. Last admission failure was due to Afib rather than a CHF exacerbation. Does not appear patient has history of CHF Strict Is & Os Protect non dominant arm for future vascular access placement Consulted nephrology - signed off as NAM resolved - patient should be scheduled to see Dr. Rider in 1-2 weeks after discharge (4) Bradycardia: Overnight 09/20 1-3 minute bouts of asymptomatic bradycadia x 3. Patient's heart rate was in the 50s so gave one dose of metoprolol succinate 50 mg rather than the 100 bid. Patient had 14 beat run of Vtach overnight, also asymptomatic. Discussed with cardiology - recommend return to usual dosing and keep patient overnight for further monitoring. 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 Madrigal see him tomorrow for further recommendations Encourage cpap use (5) BPH (benign prostatic hyperplasia): Continue tamsulosin (6) Depression, major, recurrent, in remission: Continue venlafaxine (7) Hyperkalemia: History of elevated potassium, maintains a low potassium diet. 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 Zofran prn. Advanced diet Dispo: if tolerating diet, likely home tomorrow. Awaiting PT/OT evals. Attempted to update , no answer, left message Admission and Anticipated Discharge Date Admission Date: September 16, 2020 Subjective Mr. Herrera continues to improve. Some mild nausea today but overall tolerating his diet. ROS Constitutional: no chills, aches, sweats or fever Respiratory: no sob,cough, sputum, or wheezing Cardiac: no chest pain, palpitations, edema, orthopnea or lightheadedness GI: no abdominal pain, nausea, vomiting, diarrhea or constipation : no dysuria or hesitancy Extremities: no joint pain or weakness Skin: no rash All other systems reviewed and negative Physical Exam Physical Exam: General: no distress Eyes: normal inspection, PERLL Respiratory: chest non tender, clear to auscultation, normal breath sounds, no respiratory distress, no accessory muscle use Cardiac: regular rate and rhythm, no rub or gallop, no murmur, no edema, no jvd GI/: active bowel sounds, no abd pain or tenderness, soft, non distended Extremities: normal range of motion, normal strength, non tender Neuro/Psych: alert and oriented x 3, normal mood and affect Skin: normal color, dry Results & Data Results & Data ([facility]) Vital Signs (Past 12 Hours) Vital Signs Temp Pulse Pulse Resp BP BP Pulse Ox 09/21/20 11:26 36.5 C 93 H 18 170/79 H 95 09/21/20 07:57 36.5 C 75 18 147/71 H 97 09/21/20 07:33 90 09/21/20 06:00 09/21/20 05:00 36.7 C 72 16 161/96 H 96 Pulse Ox 09/21/20 11:26 09/21/20 07:57 09/21/20 07:33 09/21/20 06:00 96 09/21/20 05:00 PG Care Time/CCT Total # of Minutes Spent Total Time Spent with Patient: Total time spent is greater than 50% in coordination of care (as documented) at patient's floor/unit and/or counseling patient: Coding Level of Care Code 48745 Subseq Hosp Care Lvl 3 Diagnoses Diverticulosis of colon K57.30 Diarrhea R19.7 CKD (chronic kidney disease), stage IV N18.4 Bradycardia R00.1 BPH (benign prostatic hyperplasia) N40.0 Depression, major, recurrent, in remission F33.40 Hyperkalemia E87.5 Diabetes mellitus E11.9 PAF (paroxysmal atrial fibrillation) I48.0 Obstructive sleep apnea G47.33 S/P liver transplant Z94.4 Nausea R11.0
[2020-09-21] MEDS: cefTRIAXone SODIUM 1,000 MG in DEXTROSE 5% 50 ML IV SCH (14:27)
--- NOTE | 2020-09-21 15:02 | Pharmacy Report ---
Pharmacy Glycemic Short Note 2 - Date of Service September 21, 2020 - Glycemic Short BSG Results (Last 24 hours): 09/20/20 09/20/20 09/21/20 16:31 20:18 06:19 Glucose 148 H POC Glucose 201 H 218 H 09/21/20 09/21/20 09/21/20 07:38 10:05 11:35 Glucose POC Glucose 141 H 179 H 190 H OUTPATIENT ANTIDIABETIC REGIMEN: * Tresiba 14 units SC qAM + Novolog 30 units SC qAM * A1c = 7.1% (08/16/2020) ASSESSMENT: * Lawrence received a total of 22 units of insulin yesterday * 8 units basal + 14 units bolus * BSGs were 103, 83, 201, 218 mg/dL * Fasting BSG of 141 mg/dl is near goal. No change to Lantus dose. * Post prandial elevation noted yesterday with dinner and HS. * This is likely due to prednisone 5 mg peaking. * Carb ratio's tighter than 10 seem to be too aggressive for all meal times * Will trial adding small dose of NPH PLAN FOR INPATIENT GLYCEMIC CONTROL: * Basal insulin * Lantus 8 units SQ qAM * NPH 5 units SQ x 1 - reassess 11/16 AM * Bolus insulin * NovoLog per scale ACHS or Q6hrs while NPO * Goal Range: Low 110 mg/dL - High 140 mg/dL * Correction Factor: 30 mg/dL/unit * Nutritional / Prandial insulin per carb ratio of 1 unit per 12 grams CHO consumed PLAN FOR DISCHARGE: * HbA1c = 7.1% which is at goal given this patient's age and comorbidities. Recommend continuing current outpatient regimen as long as patient is not experiencing any signs/symptoms of hypoglycemia.
[2020-09-21] MEDS: VENLAFAXINE HCL XR 37.5 MG CAPXR PO SCH (16:58)
--- NOTE | 2020-09-21 20:00 | Cardiology Consultation ---
Date of Consultation September 21, 2020 Assessment & Plan (1) Bradycardia: He does have periods of sinus bradycardia, generally at night and this was not seen on his Holter monitor as an outpatient although he may be at higher doses of beta-blockers here. They are asymptomatic, they are in the 30s and not below and given the nonsustained ventricular tachycardia and the high blood pressure with decrease in his beta-blockade I would recommend going back up on the beta-blockade. His atrial fibrillation is somewhat rapid even on this dose of beta-susan, although as long as it is the majority of the time that he is in it I think this is acceptable. (2) Atrial fibrillation: He has paroxysmal atrial fibrillation, as an outpatient his heart rate was well controlled, here it was somewhat elevated but that may be due to the hospitalization and the illness. I do not know what dose of beta-susan he was on his Holter as an outpatient. I would recommend continuing his higher dose of beta-blockade since he has other reasons to be on it. He should remain on anticoagulation. (3) NSVT (nonsustained ventricular tachycardia): He did have 1 run of nonsustained ventricular tachycardia identified here on telemetry, however that was not seen on his Holter monitor. That occurred with reduction in his beta-blockade. Normally we treat nonsustained ventricular tachycardia with preserved left ventricular function with beta-blockade and I would recommend continuing that. History of Present Illness Reason for Consultation: Bradycardia, nonsustained ventricular tachycardia Attending Physician: Luis Cabrera, History of Present Illness This is an 80-year-old male who has a history of hypertension, a chronic mild to moderate pericardial effusion and a liver transplant in 1984. He follows as outpatient with Dr. Madrigal. He was recently admitted in August 2020 for fluid retention and edema, he also has a history of kidney disease. He does have a history of atrial fibrillation that was recently identified. He had a Holter monitor performed on August 11, 2020, this showed sinus rhythm predominantly by 12% atrial fibrillation. His heart rate during atrial fibrillation however was controlled with a minimum heart rate of 51 bpm, a maximum 130 bpm during atrial fibrillation. During sinus rhythm his minimum heart rate was 54 and his maximum was 109 bpm. Of note at the time he was taking metoprolol succinate, it is difficult for me to tell the dose I think it was 50 mg twice a day although it may have been 100 mg twice a day. An echocardiogram done on August 19, 2020 shows normal left ventricular systolic function with ejection fraction 55 to 60%, moderate left-ventricular hypertrophy and a small pericardial effusion. Similar to 2014. He presented on this occasion with GI complaints, however during this hospitalization he has had paroxysmal atrial fibrillation at times with a somewhat rapid heart rate. He was also observed to have sinus bradycardia with heart rates in the 30s. He does have a history of sleep apnea which may be involved with the bradycardia. Due to the bradycardia his metoprolol was decreased but he also had a run of nonsustained ventricular tachycardia at least 12 beats in duration. All of this is asymptomatic. Allergies Allergy/AdvReac Type Severity Reaction Status Date / Time aspirin AdvReac Unknown high doses Verified 09/15/20 14:31 contrindicated d/t hx liver transplant ibuprofen AdvReac Unknown not to Verified 09/15/20 14:31 take due to transplant Home Medications Home Medications Medication Instructions Recorded Confirmed Type calcium carbonate [Calcium 600] 600 mg PO BID 01/09/19 09/16/20 History meclizine 25 mg PO DAILY PRN 01/09/19 09/16/20 History prednisone 5 mg PO QAM 01/09/19 09/16/20 History ursodiol 300 mg PO BID 01/09/19 09/16/20 History docusate sodium 100 mg capsule 100 mg PO QAM 06/19/19 09/16/20 History [employer] [facility] 1 cap PO QAM 07/10/19 09/16/20 History lidocaine 5 % topical patch 1 patch TOP DAILY PRN 08/10/19 09/16/20 History polyethylene glycol 3350 17 gram 17 gm PO DAILY PRN 08/10/19 09/16/20 History oral powder packet calcitriol 0.5 mcg capsule 0.5 mcg PO QAM #30 cap 09/25/19 09/16/20 Rx aspirin 81 mg PO QAM 03/17/20 09/16/20 History hydrocortisone 2.5 % topical cream 1 appln [place] DAILY PRN #28.35 gm 03/18/20 09/16/20 Rx with perineal applicator metoprolol succinate 100 mg PO BID #120 tab 05/20/20 09/16/20 Rx venlafaxine 37.5 mg 37.5 mg PO DAILY@1700 #30 cap 07/10/20 09/16/20 Rx capsule,extended release 24 hr insulin aspart U-100 100 unit/mL 30 unit SUBCUT DAILY #15 ml 07/16/20 09/16/20 Rx (3 mL) subcutaneous pen Prolia 60 mg/mL subcutaneous 60 mg SUBCUT Q6MO #1 ml NS 07/22/20 09/16/20 Rx syringe amlodipine 5 mg tablet 5 mg PO DAILY #30 tab 07/22/20 09/16/20 Rx tamsulosin 0.4 mg capsule 0.4 mg PO DAILY #90 cap 08/12/20 09/16/20 Rx triamcinolone acetonide 0.1 % 1 applic TOPICAL BID #30 g 08/12/20 09/16/20 Rx topical cream furosemide [Lasix] 20 mg PO QAM #30 tab 08/19/20 09/16/20 Rx tacrolimus 2 mg PO BID #120 cap 08/19/20 09/16/20 Rx apixaban 2.5 mg tablet 2.5 mg PO BID #60 tab 08/21/20 09/16/20 Rx donepezil 10 mg tablet 10 mg PO DAILY #30 tab 08/21/20 09/16/20 Rx menthol 0.44 %-zinc oxide 20.6 % 1 applic TOPICAL QID PRN #113 g 09/02/20 09/16/20 Rx topical ointment OneTouch Delica Lancets 33 gauge #300 ea NS 09/12/20 09/15/20 Rx OneTouch Verio test strips #300 ea NS 09/12/20 09/15/20 Rx insulin degludec 100 unit/mL (3 12 unit SUBCUT QAM #15 ml 09/12/20 09/16/20 Rx mL) subcutaneous pen magnesium gluconate 27.5 mg 200 mg PO DAILY tab 09/12/20 09/16/20 History magnesium (500 mg) tablet denosumab [Prolia] 60 mg SUBCUT .Q 6 MONTHS 09/16/20 09/16/20 History fludrocortisone 0.1 mg PO DAILY 09/16/20 09/16/20 History Patient History Medical History Abscess of skin of abdomen BPH (benign prostatic hyperplasia) Bright red rectal bleeding Cancer SKIN CANCER-BASAL CELL/SQUAMOUS Diabetes mellitus Dyspnea Hypertension Lower extremity edema Pancreatitis HX S/P liver transplant Sclerosing cholangitis S/P liver transplant 1994 Vitamin D deficiency Surgical History Fusion of spine LUMBAR H/O exploratory laparotomy FOR HEMATOMA/DIVERTIULITIS?-02/23/19 [facility], [place] History of appendectomy History of cholecystectomy History of colonoscopy History of esophagogastroduodenoscopy (EGD) History of herniorrhaphy X 2 History of liver biopsy History of oral surgery Posts implanted in mandible for bottom denture History of tooth extraction Transplant LIVER 1994 IN [place] ([facility]) Family History Father Family history of diabetes mellitus Myocardial infarction Heart failure Mother Dementia Denies family history of Ovarian cancer Prostate cancer Breast cancer Colorectal cancer Social History Smoking Status: Former smoker Tobacco Type: Cigarettes Cigarettes Per Day: QUIT 1971; Second Hand Exposure: No; Hx Alcohol Use: No Hx Substance Use: No Preferred Language: Wallisian Communication Ability: Effective 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 HEENT: Unremarkable Neck: No jugular venous distention, carotid pulses are normal and equal bilaterally without bruits. Pulmonary: Clear to auscultation bilaterally. Cardiac: Regular rhythm with no murmur, gallop or rub. Abdomen: Soft, nontender with normal bowel sounds. Extremities: No edema. Distal pulses intact. Neurologic: No focal findings. Gait is steady. Skin: No rash, ecchymoses or petechiae. Results & Data ([facility]) Vital Signs (Past 12 Hours) Vital Signs Temp Pulse Pulse Resp BP Pulse Ox 09/21/20 16:43 36.7 C 77 16 155/90 H 96 09/21/20 15:45 80 09/21/20 11:26 36.5 C 93 H 18 170/79 H 95 Laboratory Results CBC 09/21/20 Range/Units 06:19 WBC 6.94 (4.8-10.8) K/uL RBC 3.84 L (4.7-6.1) M/uL Hgb 11.9 L (14.0-18.0) g/dL Hct 35.4 L (42-52) % Plt Count 140 (130-400) K/uL Neut # (Auto) 4.54 (1.4-6.5) K/uL Lymph # (Auto) 1.82 (1.2-3.4) K/uL [place] # (Auto) 0.38 (0.11-0.59) K/uL Eos # (Auto) 0.17 (0-0.5) K/uL Baso # (Auto) 0.01 (0-0.2) K/uL Comprehensive Metabolic Panel 09/21/20 Range/Units 06:19 Sodium 137 (136-145) mmol/L Potassium 3.9 (3.5-5.1) mmol/L Chloride 107 (98-107) mmol/L Carbon Dioxide 25 (21-32) mmol/L BUN 44 H (7-18) mg/dl Creatinine 4.13 H (0.6-1.4) mg/dl Glucose 148 H (70-99) mg/dl Calcium 7.6 L (8.5-10.1) mg/dl Intake and Output 09/21/20 09/21/20 09/21/20 06:59 14:59 22:59 Intake Total 300 / 1220 440 / 500 60 / 500 Balance 300 / 1219 440 / 500 60 / 500 Intake: IV 100 / 360 200 / 260 60 / 260 Rocephin 1,000 mg In D5w 50 ml 60 / 60 @ 100 mls/hr IV Q24H MIRIAM Rx#: [id number] FLAGYL 500 mg In 100 ml @ 100 100 / 300 200 / 200 mls/hr IV Q8 MIRIAM Rx#:[id number] Oral 200 / 860 240 / 240 Other: # Unmeasured Voids 2 2 Weight 71.1 kg Weight Measurement Method Built in [facility] Diagnostic Findings Telemetry: Review of telemetry shows probably sinus rhythm with episodes of atrial fibrillation. During atrial fibrillation his heart rate was averaging around 90 bpm, however during sinus rhythm heart rate dropped into the 30s. He did have 1 run of nonsustained ventricular tachycardia, this was at least 12 beats in duration at a heart rate of around 150 bpm. PG Care Time/CCT Total # of Minutes Spent Total Time Spent with Patient: Total time spent is greater than 50% in coordination of care (as documented) at patient's floor/unit and/or counseling patient: Coding Level of Care Code 99434 Initial Inpt Care Lvl 3 Diagnoses Bradycardia R00.1 Atrial fibrillation I48.91 NSVT (nonsustained ventricular tachycardia) I47.2
[2020-09-21] MEDS: METOPROLOL SUCC 50MG EXT REL TAB PO SCH (20:23)
[2020-09-21] MEDS ORDERED: hydrOXYzine HCl 25 MG TAB PO PRN (21:04)
[2020-09-21] MEDS ORDERED: MELATONIN 3 MG TAB PO PRN (21:04)
[2020-09-22 06:23] LABS: Basophils # (auto) 0.01 K/uL (0-0.2); Basophils % (auto) 0.2 %; Eosinophils % (auto) 3.1 %; Hemoglobin 11.7 g/dL (14.0-18.0); Immature Granulocytes # (auto) 0.02 K/uL (0.00-0.02); Immature Granulocytes % (auto) 0.3 %; Lymphocytes # (auto) 1.85 K/uL (1.2-3.4); Mean Corpuscular Hemoglobin 31.5 pg (25-34); Mean Corpuscular Hgb Conc 34.4 g/dL (32-36); Mean Corpuscular Volume 91.4 fL (80-100); Mean Platelet Volume 10.1 fL (7.4-10.4); Monocytes # (auto) 0.55 K/uL (0.11-0.59); Monocytes % (auto) 8.6 %; Neutrophils # (auto) 3.75 K/uL (1.4-6.5); Neutrophils % (auto) 58.8 %; Platelet Count 130 K/uL (130-400); RDW Coefficient of Variation 15.1 % (11.5-14.5); RDW Standard Deviation 50.2 fL (36.4-46.3); Red Blood Count 3.72 M/uL (4.7-6.1); White Blood Count 6.38 K/uL (4.8-10.8)
[2020-09-22] MEDS: metroNIDAZOLE 500 MG/100 ML BAG IV SCH ×2 (06:39→13:13)
[2020-09-22 06:53] LABS: Albumin Level 2.8 gm/dl (3.4-5.0); BUN Creatinine Ratio 11.7 (10-20); Calcium 7.4 mg/dl (8.5-10.1); Creatinine Clr Calc Pharmacy 13.6 ml/min; Est GFR (African American) 13.9; Potassium 3.6 mmol/L (3.5-5.1)
[2020-09-22 06:56] LABS: Albumin Globulin Ratio 0.9 (0.9-2); Bilirubin,Total 0.5 mg/dl (0.2-1); Total Protein 5.8 gm/dl (6.4-8.2)
[2020-09-22] MEDS: CALCITRIOL 0.25 MCG CAPSULE PO SCH (08:06)
[2020-09-22] MEDS: predniSONE 5 MG TAB PO SCH (08:07)
[2020-09-22] MEDS: ASPIRIN 81 MG ECTAB PO SCH (08:07)
[2020-09-22] MEDS: TAMSULOSIN HCL 0.4 MG CAP PO SCH (08:07)
[2020-09-22] MEDS: ursodioL 300 MG CAP PO SCH (08:07)
[2020-09-22] MEDS: amLODIPine BESYLATE 5 MG TAB PO SCH (08:08)
[2020-09-22] MEDS: DONEPEZIL HCL 10 MG TAB PO SCH (08:08)
[2020-09-22] MEDS: TACROLIMUS 1 MG CAP PO SCH (08:09)
[2020-09-22] MEDS: FLUDROCORTISONE ACETATE 0.1 MG TAB PO SCH (08:09)
[2020-09-22] MEDS: METOPROLOL SUCC 50MG EXT REL TAB PO SCH (08:10)
[2020-09-22] MEDS: APIXABAN 2.5 MG TAB PO SCH (08:10)
[2020-09-22] MEDS: INSULIN GLARGINE SOLOSTAR 100 UNITS/ML 3 ML PEN SC SCH (08:11)
[2020-09-22] MEDS: INSULIN ASPART 100 UNITS/ML 3 ML PEN SC SCH ×2 (08:13→12:12)
[2020-09-22] MEDS: CALCIUM CARBONATE 1250MG TAB PO SCH (08:15)
[2020-09-22] MEDS: TRIAMCINOLONE ACET 0.1% CR 15 GM TUBE TOP SCH (08:27)
[2020-09-22] MEDS ORDERED: FAMOTIDINE 20 MG TAB PO SCH (09:00)
[2020-09-22] MEDS ORDERED: PANTOprazole 40 MG TAB PO SCH (09:00)
--- NOTE | 2020-09-22 10:57 | Cardiology Progress Note ---
Date of Service September 22, 2020 Assessment & Plan (1) Atrial fibrillation: -history of paroxysmal atrial fibrillation. -currently in normal sinus rhythm. -would continue metoprolol succinate 100 mg b.i.d. -would also continue Eliquis 2.5 mg b.i.d. (2) NSVT (nonsustained ventricular tachycardia): -not seen on telemetry during this hospitalization. -would continue metoprolol succinate. (3) Hypertension: -controlled on current medical regimen. (4) Pericardial effusion: -small, chronic pericardial effusion. Admission and Anticipated Discharge Date Admission Date: September 16, 2020 Subjective Mr. Herrera is resting comfortably in bed without complaints of chest pain, dyspnea, or palpitations. Physical Exam Physical Exam: In general this is a well-developed well-nourished white male in no acute distress. HEENT exam is negative. Neck is supple with full carotid upstrokes. There no carotid bruits. No JVD. Is no thyromegaly. Cardiovascular exam reveals a regular rhythm with a normal S1 and S2. No S3, S4, or murmurs are noted. Lungs are clear without rales, rhonchi, or wheezes. Abdomen is benign without bruits. Extremities reveal intact radial artery and posterior tibial pulses bilaterally. There is trace pedal edema. Results & Data ([facility]) Vital Signs (Past 12 Hours) Vital Signs Temp Pulse Resp BP BP Pulse Ox 09/22/20 07:51 36.7 C 90 20 177/82 H 94 09/22/20 04:30 36.6 C 75 17 152/78 H 96 09/21/20 23:50 36.7 C 62 18 188/85 H 96 Diagnostic Findings quality assurance monitor body notes normal sinus rhythm at this time. Paroxysmal atrial fibrillation/flutter noted previously during this hospitalization. PG Care Time/CCT Total # of Minutes Spent Total Time Spent with Patient: Total time spent is greater than 50% in coordination of care (as documented) at patient's floor/unit and/or counseling patient: Coding Level of Care Code 81418 Subseq Hosp Care Lvl 3 Diagnoses Atrial fibrillation I48.91 NSVT (nonsustained ventricular tachycardia) I47.2 Hypertension I10 Pericardial effusion I31.3
--- NOTE | 2020-10-03 21:04 | Discharge Summary ---
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 Patient reports that they saw GI and Dr. Douglass, and had labs and an x-ray today. Lawrence is here with his . After he was in the hospital last month he developed diarrhea and continued to have it when he returned home. Had 1 day without BM, hard BM with pain, then got worse and has persisted since. Had to get depends to compensate for having 8-10 BMs per day which are extremely loose but not liquid. He had 1 episode of red blood in the commode similar to prior bleeding with hemorrhoids. His is concerned about C. Diff because he has had it before. His reports stool samples were taken Tuesday which were normal, but did not include C. diff. Lawrence was at a sleep study to update his insurance authorization for BiPaP (had been having hypnogogic hallucinations, elevated CO2, and confusion which all resolved with BiPaP) when started vomiting and was called by the sleep study personell. 2x episodes of nonbloody, nonbilious emesis. On the way home he started vomiting again and his brought him to the ER. No fevers or chills No shortness of breath, difficulty breathing, or cough Endorses abdominal pain for 1 day. Has some nausea x1 day. No change in taste or smell. No focal weakness. Endorses global weakness and fatigue. No muscle/body aches Denies syncope/presyncope. No palpitations. Denies chest pain/chest pressure. Lawrence was seen in the hospital from 08/15/2210 weakness and intermittent atrial fibrillation on a Holter. At discharge she was noted to have multifactorial shortness of breath with underlying venous stasis and potential CHF exacerbated by A. fib. He was discharged on Lasix with cautious balance ag ainst his CKD. At the time his echo did not show signs of systolic heart failure. Since discharge she has followed up with Dr. 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 Dialysis was discussed he was scheduled for vascular referral to have a aVF placed which was anticipated to be done on September 26. He was seen by gastroenterology on 09/15/2020. At that time he had reported that his diarrhea had began following hospital admission, and that he developed diarrhea on 08/19/2020 and since that time had 8-9 bowel movements per day and had a bowel movement every time he urinated. Stool culture was taken by GI and was negative for enteric pathogens. He has a history of C. difficile previously, a C. difficile study was ordered but not run/collected per GI report. Principal Diagnosis sigmoid diverticulitis Discharge Exam Constitutional + thin; no acute distress and no altered mental status ENMT external ear and nose normal, oropharynx normal Respiratory normal respiratory effort, lungs clear to auscultation Cardiovascular Rate/Rhythm: regular rate and regular rhythm Heart Sounds: normal S1 and normal S2; no murmur Vessels: posterior tibial pulses present and dorsalis pedis pulses present; no JVD Extremities: no edema Gastrointestinal (Abdomen) normal bowel sounds, soft, nontender, no hepatosplenomegaly Inspection/Auscultation: + abdominal surgical scar Psychiatric Orientation: alert and oriented x 3 Discharge Data Allergies Allergy/AdvReac Type Severity Reaction Status Date / Time aspirin AdvReac Unknown high doses Verified 09/26/20 14:44 contrindicated d/t hx liver transplant ibuprofen AdvReac Unknown not to Verified 09/26/20 14:44 take due to transplant Consultations [facility] Cardiology [facility] Nephrology PT, OT Ordered Studies 09/15/20 23:45 CT abd pelvis wo con Urgent IMPRESSION: 1. Findings compatible with acute uncomplicated sigmoid diverticulitis. No evidence of perforation or drainable fluid collection. 2. No bowel obstruction. 3. Trace left and small right pleural effusions. 4. Cardiomegaly with unchanged moderate sized pericardial effusion. 5. Findings suggestive of early cirrhotic liver disease with moderate splenomegaly. 6. Prostamegaly with urinary bladder wall thickening suggestive of chronic bladder outlet obstruction. 7. Posterior interbody simone and screw fusion at L2-S1 redemonstrated. Lucency surrounding the bilateral L2 pedicle screws suggests hardware loosening. Hospital Course (1) Sigmoid diverticulitis: Patient was treated with IV antibiotics and bowel rest. Symptoms improved with such, and diarrhea also improved. C diff and stool culture were both negative. Diet was ultimately resumed and advanced as tolerated. Patient was discharged home on 4 days each of cefdinir and flagyl. He was asked to follow a low fiber for 10 days post-discharge. Patient was counseled that he should have a colonoscopy in 6-8 weeks post- discharge. (2) Acute kidney injury: Peak Cr 5.1, improving to 4.3 at discharge. Baseline Cr is about 4.1 to 4.3. NAM was 2nd to volume depletion in setting of diverticulitis and diarrhea. (3) Chronic kidney disease, stage IV (severe): Baseline Cr about 4.1 to 4.3. Followed by [facility] nephrology. Patient is being prepped for potential dialysis in the coming months with AV fistula creation. 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 (4) Liver transplant status: h/o sclerosing cholangitis, s/p liver transplant in 2004. Maintained on prednisone 5mg daily and tacrolimus 2mg BID for chronic immunosuppression. (5) Hypertension: Continue metoprolol and lasix. (6) PAF (paroxysmal atrial fibrillation): Continue eliquis 2.5mg BID. Continue metoprolol succinate 100mg BID. (7) NSVT (nonsustained ventricular tachycardia): 1 episode of such during the stay. Asymptomatic from such. Seen by [facility] cardiology - ongoing use of beta blockade recommended. Continue metoprolol succinate 100mg BID. Echo in 08/2020 showed EF 55-60%. (8) Type 2 diabetes mellitus: Most recent HbA1C was about 7%. He will continue on his usual insulins post-discharge. (9) Pericardial effusion: Small, chronic. (10) BPH with obstruction/lower urinary tract symptoms: Continue flomax. Total Time Total Time Spent Total Time Spent (In Minutes): 40 Total Time Includes: Examination of the Patient, Discharge Planning, Medication Reconciliation and Communication With Other Providers Discharge Plan Discharge Items Patient Disposition: Home - Self-Care Reason For Visit: DIARRHEA, DEHYDRATION Discharge Diagnosis: 1. diarrhea - improved 2. diverticulitis - improved 3. dehydration - resolved Activity: As commented below Activity Comment: gradually increase activities as tolerated over the next 5 days Non-emergency contact: Primary Care Provider and Crew Leader Call non-emergency contact if: you have any medication questions, your symptoms worsen, your pain is not controlled, your pain is worsening and you have a fever Follow-up/Referrals: Emigdio Douglass DO [Physician] - (please see Dr Douglass or his partners within 2-3 weeks; diagnosis - diverticulitis ) Jhonny Cobos DO [Primary Care Provider] - 09/24/20 11:30 am Diet: Carb Consistent or DM2, Low Potassium (2gm) and Low Fiber Addtl Attending Provider Instructions: You were treated for diverticulitis of the colon with IV antibiotics. We checked you for c.diff infection of the colon and this was negative. A stool culture was also checked and failed to show any specific infection (salmonella, e.coli, etc). Your diverticulitis improved over time. At discharge you are tolerating a low fiber, diabetic diet. Your dehydration improved during the stay. Your creatinine (kidney function level) is 4.3 on 09/22/20. Recommendations - 1. take the following antibiotics for your diverticulitis - * cefdinir 300mg once daily for 4 more days; start this today * metronidazole 500mg three times a day for 4 more days; start this TONIGHT 2. diet - please follow a low fiber diet for the next 10 days. Please see handout on fiber. 3. continue your usual medications for your liver transplant (prednisone, etc). 4. since you are just resolving diarrhea please HOLD your colace stool softener. 5. please speak to Dr Douglass, [facility], about having a colonoscopy in about 2 months. 6. please use your assistive devices at your home to prevent falls, etc. 7. check your blood sugars at least 2-3x's each day to know what your numbers are. Follow-up - see separate section Return to [facility] if - * you have fevers over 100 degrees * you have worsening abdominal pain or diarrhea * you have vomiting * you are short of breath * any other concerns COVID-19 prevention - * wear a mask ANY TIME you leave your home * continue to socially distance from other people * avoid large crowds including family gatherings * obtain your flu shot if you haven't gotten one yet * wash your hands frequently * people who are ill should NOT visit you at your home My condolences on the passing of your brother. Please take good care and stay well, Dr Monk Pending Studies at Discharge: No Stand-Alone Forms: My [facility], Smoking Cessation Medications and DC Order Prescriptions: Continued calcitriol 0.5 mcg capsule 0.5 mcg PO QAM Qty: 30 RF: 5 metoprolol succinate 50 mg tablet extended release 24 hr 100 mg PO BID Qty: 120 RF: 5 venlafaxine 37.5 mg capsule,extended release 24hr 37.5 mg PO DAILY@1700 Qty: 30 RF: 2 insulin aspart U-100 [Novolog Flexpen U-100 Insulin] 100 unit/mL (3 mL) insulin pen 30 unit subcut DAILY Qty: 15 RF: 5 Prolia 60 mg/mL syringe 60 mg SUBCUT Q6MO Qty: 1 RF: 1 hydrocortisone [Anusol-HC] 2.5 % cream with perineal applicator 1 appln SC DAILY PRN (Reason: hemorrhoids) Qty: 28.35 RF: 0 lidocaine 5 % adhesive patch,medicated 1 patch TOP DAILY PRN (Reason: Pain) RF: 0 polyethylene glycol 3350 17 gram powder in packet 17 gm PO DAILY PRN (Reason: Constipation) RF: 0 Tresiba FlexTouch U-100 100 unit/mL (3 mL) insulin pen 12 unit subcut QAM Qty: 15 RF: 3 (DME) lancets [OneTouch Delica Lancets] 33 gauge misc See Rx Instructions .ROUTE .MEDSUPPLY Qty: 300 RF: 3 (DME) OneTouch Verio test strips Strip See Rx Instructions .ROUTE .MEDSUPPLY Qty: 300 RF: 3 tamsulosin [Flomax] 0.4 mg capsule 0.4 mg PO DAILY Qty: 90 RF: 3 triamcinolone acetonide 0.1 % cream 1 applic topical BID Qty: 30 RF: 3 Calmoseptine 0.44-20.6 % ointment 1 applic topical QID PRN (Reason: skin irritation) Qty: 113 RF: 5 Eliquis 2.5 mg tablet 2.5 mg PO BID Qty: 60 RF: 5 donepezil 10 mg tablet 10 mg PO DAILY Qty: 30 RF: 5 Prolia 60 mg/mL syringe 60 mg SUBCUT .Q 6 MONTHS RF: 0 fludrocortisone 0.1 mg tablet 0.1 mg PO DAILY RF: 0 prednisone 5 mg Tablet 5 mg PO QAM RF: 0 calcium carbonate [Calcium 600] 600 mg calcium (1,500 mg) Tablet 600 mg PO BID RF: 0 meclizine 25 mg Tablet 25 mg PO DAILY PRN (Reason: VERTIGO) RF: 0 ursodiol 300 mg Capsule 300 mg PO BID RF: 0 Coty 1.5 billion cell Capsule 1 cap PO QAM RF: 0 aspirin 81 mg Tablet,Delayed Release (Dr/Ec) 81 mg PO QAM RF: 0 tacrolimus 1 mg Capsule 2 mg PO BID Qty: 120 RF: 0 Discontinued docusate sodium [Colace] 100 mg capsule 100 mg PO QAM RF: 0 No Action furosemide [Lasix] 20 mg tablet 20 mg PO QAM Qty: 90 RF: 2 Discharge Orders: Discharge Order (Routine); Ordered 09/22/20 Ordered By: Chilo Osorio/Other Patient Handouts: Low-Fiber Diet, ED Diverticulitis Admission Data Admit Date/Time: 09/16/20 15:42 Attending Provider: Chilo Monk Admit Provider: Jose Barclay Primary Care Provider: Jhonny Cobos Other Providers: Terrence Puente Charles C. Other Interventions: Discharge Summary Assessment (RN) Last Done: 09/22/20 13:49 Coding Level of Care Code D/C Day Management >30 mins Diagnoses Sigmoid diverticulitis K57.32 Acute kidney injury N17.9 Chronic kidney disease, stage IV (severe) N18.4 Liver transplant status Z94.4 Hypertension I10 Hypertension type: unspecified PAF (paroxysmal atrial fibrillation) I48.0 NSVT (nonsustained ventricular tachycardia) I47.2 Type 2 diabetes mellitus E11.9 Pericardial effusion I31.3 BPH with obstruction/lower urinary tract symptoms N40.1; N13.8
== END 2020-09-22 15:20 | disposition home or self-care (01) | DRG 378 ==
LOC: 1E 23:04 → ED 23:04 → 1E 09-16 05:18 → 2W 09-16 15:41 → SUATTDRO 09-16 15:42

== ENCOUNTER 2021-01-28 14:50 | Inpatient (IN) ==
[2021-01-28] MEDS ORDERED: ALBUT/IPRATROP 3MG/0.5MG NEB 3 ML VIAL NEB STA (16:37)
[2021-01-28 16:56] LABS: Basophils # (auto) 0.01 K/uL (0-0.2); Basophils % (auto) 0.2 %; Eosinophils # (auto) 0.04 K/uL (0-0.5); Eosinophils % (auto) 0.7 %; Hematocrit (blood only) 33.8 % (42-52); Hemoglobin 11.2 g/dL (14.0-18.0); Immature Granulocytes # (auto) 0.01 K/uL (0.00-0.02); Immature Granulocytes % (auto) 0.2 %; Lymphocytes # (auto) 1.32 K/uL (1.2-3.4); Lymphocytes % (auto) 22.7 %; Mean Corpuscular Hemoglobin 30.2 pg (25-34); Mean Corpuscular Hgb Conc 33.1 g/dL (32-36); Mean Corpuscular Volume 91.1 fL (80-100); Mean Platelet Volume 11.3 fL (7.4-10.4); Monocytes # (auto) 0.31 K/uL (0.11-0.59); Monocytes % (auto) 5.3 %; Neutrophils # (auto) 4.13 K/uL (1.4-6.5); Neutrophils % (auto) 70.9 %; Platelet Count 100 K/uL (130-400); RDW Coefficient of Variation 14.4 % (11.5-14.5); RDW Standard Deviation 47.8 fL (36.4-46.3); Red Blood Count 3.71 M/uL (4.7-6.1); White Blood Count 5.82 K/uL (4.8-10.8)
[2021-01-28 17:22] LABS: Base Excess VBG 3.8 mEq/L; HCO3 VBG 30 mmol/L; PCO2 VBG 54 mmHg (38-50); PO2 VBG 19 mmHg; pH VBG 7.36 (7.36-7.41)
--- NOTE | 2021-01-28 17:23 | XRay Report ---
XR chest 1V portable CLINICAL HISTORY: Atypical chest pain COMPARISON STUDY: 09/15/2020 FINDINGS: The heart is enlarged. There are bilateral pleural effusions right greater than left. There is mild pulmonary vascular congestion. There are bilateral pulmonary airspace opacities, atelectasis versus pneumonia.[ IMPRESSION: 1. Cardiomegaly and radiographic evidence of mild pulmonary vascular congestion with bilateral pleura l effusions right greater than left 2. Bibasilar pulmonary airspace opacities, atelectasis versus pneumonia. 3. Clinical and radiographic follow-up are recommended. ACT 112: Negative or not required by law. Electronically signed by: Stewart Enciso M.D. 01/28/2021 5:22 PM
[2021-01-28 17:28] LABS: Oxygen Saturation VBG < 60.0 %
[2021-01-28 17:32] LABS: Alanine Aminotransferase 30 U/L (12-78); Albumin Level 3.5 gm/dl (3.4-5.0); Alkaline Phosphatase 87 U/L (45-117); Aspartate Aminotransferase 17 U/L (15-37); BUN Creatinine Ratio 18.7 (10-20); Bilirubin Direct < 0.1 mg/dl (0-0.2); Bilirubin,Total 0.3 mg/dl (0.2-1); Blood Urea Nitrogen 89 mg/dl (7-18); Carbon Dioxide 28 mmol/L (21-32); Chloride 104 mmol/L (98-107); Creatine Kinase 55 U/L (39-308); Creatinine Clr Calc Pharmacy 12.9 ml/min; Est GFR (African American) 12.3; Est GFR (Non-African American) 10.6; Globulin 3.6 gm/dl (2.5-4.0); Glucose 151 mg/dl (70-99); Lipase 70 U/L (73-393); Magnesium 2.3 mg/dl (1.8-2.4); NT Pro B Type Natriuretic Pept 12771 pg/ml (0-1800); Potassium 4.2 mmol/L (3.5-5.1); Sodium 138 mmol/L (136-145); Total Protein 7.1 gm/dl (6.4-8.2); Troponin I < 0.015 ng/ml (0-0.045)
--- NOTE | 2021-01-28 17:42 | Emergency Department Note ---
Impression & Plan Dyspnea on minimal exertion, Pericardial effusion, Bilateral pleural effusion, CKD (chronic kidney disease) ED Provider Note NAME: JULISSA ARGUETA AGE: 80 SEX: M ARRIVES VIA: Walk-In INFORMANT: Patient, ED PROVIDER(S): Schuyler Arciniega MD CHIEF COMPLAINT: Shortness of breath PLAN: Disposition: Admit MEDICAL DECISION MAKING: The patient is a pleasant 80-year-old gentleman with a past medical history of CKD, atrial fibrillation on Eliquis, history of liver transplant who presents to the emergency department with worsening shortness of breath at rest and more so with exertion over the past couple of months. They report his weight and chronic lower extremity edema has remained stable and so he has not needed to take his additional as needed Lasix. They deny fevers, new cough, nausea, vomiting, diarrhea or urinary symptoms. On arrival patient is fatigued appearing mildly dyspneic but no acute distress, afebrile with O2 saturation 97% on room air with only slight amount of dyspnea noted and in no distress. WBC within normal limits. H/H and platelets approximately prior values. Chemistry without metabolic acidosis. Creatinine 4.7 similar to prior range of values in the setting of CKD. Electrolytes and LFTs without significant abnormalities. Troponin negative/undetectable. BNP 12K similar to prior and nonspecific in the setting of the patient's severe CKD. COVID-19, influenza and RSV PCR's were negative. EKG demonstrates atrial fibrillation without overt acute ischemia. Chest x-ray shows vascular congestion with bilateral pleural effusions right greater than left which is further characterized on CT and does appear to have progressed since October. Note is made on CT of pericardial effusion which also appears unchanged. There is some question of possible aspiration due to bibasilar opacities however likely atelectasis given no leukocytosis no fevers reported by the patient. I did speak at length with the patient and his at the bedside regarding his evaluation which appears mostly stable and unchanged. Certainly his progressive dyspnea over the past couple of months could be related to the pleural effusions, which appeared to have progressed. We did discuss option for dose of Lasix in the emergency department for additional diuresis and close follow-up however the patient's in particular and ultimately the patient did agree and preferred admission for further management. Case was discussed with Dr. Puente, [facility] [place] hospitalist, who will evaluate the patient for admission. We agreed to proceed with blood cultures and empiric ABX with imaging with suspicion for PNA in the setting of immune compromised state. Triage Nursing notes reviewed and agree them. Prior medical records reviewed Vital Signs: reviewed and remarkable for tachycardia/HTN. Differential diagnosis: Reactive airway disease, pneumonia, pneumothorax, COPD, CHF, infections, cardiac ischemia, pulmonary embolism, musculoskeletal, gastrointestinal, as well as other pathologies. ER treatment provided: See below. Diagnostics interpreted by me: ECG: Atrial fibrillation, 95 bpm, no ectopy, nonspecific ST-T wave abnormality, no overt ST elevation or depression, QTC 45, QRS 92. Cardiac Monitoring: An order for continuous cardiac monitoring was placed and demonstrated Atrial fibrillation, 95 bpm, no ectopy. Laboratory studies: See below Imaging studies: XR chest 1V portable CLINICAL HISTORY: Atypical chest pain COMPARISON STUDY: 09/15/2020 FINDINGS: The heart is enlarged. There are bilateral pleural effusions right greater than left. There is mild pulmonary vascular congestion. There are bilateral pulmonary airspace opacities, atelectasis versus pneumonia.[ IMPRESSION: 1. Cardiomegaly and radiographic evidence of mild pulmonary vascular congestion with bilateral pleural effusions right greater than left 2. Bibasilar pulmonary airspace opacities, atelectasis versus pneumonia. 3. Clinical and radiographic follow-up are recommended. ACT 112: Negative or not required by law. -- CT chest diagnostic wo con CLINICAL HISTORY: Shortness of breath COMPARISON STUDY: Chest x-ray dated 01/28/2021, CT scan dated 05/10/2013 CT DOSE: 276.44 mGy.cm TECHNIQUE: CT of the thorax was performed from the thoracic inlet to the lung bases. Images are reviewed in the axial, sagittal, and coronal planes. IV contrast was not administered for this examination. A dose lowering technique was utilized adhering to the principles of ALARA. FINDINGS: Thyroid: Imaged portions of the thyroid gland are normal in appearance. Thoracic aorta: The thoracic aorta is normal in course and caliber, noting standard 3 vessel arch anatomy. Heart: The heart is enlarged. There is a moderate pericardial effusion, minimally smaller than on the preceding study Lungs and pleural spaces: There is a moderate right-sided pleural effusion and [id number] left pleural effusion. There are dependent pulmonary airspace opacities statistically representing compressive atelectasis. There is hyperdense material within the atelectatic lung. Prior aspiration cannot be excluded. Mediastinum: There is no evidence of pathologic mediastinal lymphadenopathy Alejandra: There is no evidence of pathologic hilar adenopathy given the limitations of a noncontrast study Axilla: There is no evidence of pathologic axillary lymphadenopathy Upper abdomen: There is persistent pneumobilia. The spleen is enlarged. There is trace perisplenic fluid. There is upper abdominal ascites. Skeletal structures: There is an acute/subacute superior endplate L1 compression fracture IMPRESSION: 1. Cardiomegaly, and moderate pericardial effusion 2. Bilateral pleural effusions right larger than left 3. Dependent lower lobe pulmonary airspace opacities likely representing compressive atelectasis. There is hyperdense material within the atelectatic lung, prior aspiration cannot be excluded 4. Splenomegaly and upper abdominal ascites 5. Acute/subacute superior endplate L1 compression fracture ACT 112: Negative or not required by law. Consultation(s): Case was discussed with Dr. Puente, [facility] [place] hospitalist, who will evaluate the patient for admission. HPI: The patient is a pleasant 80-year-old gentleman with a past medical history of CKD, atrial fibrillation on Eliquis, history of liver transplant who presents to the emergency department with worsening shortness of breath at rest and more so with exertion over the past couple of months. They report his weight and chronic lower extremity edema has remained stable and so he has not needed to take his additional as needed Lasix. They deny fevers, new cough, nausea, vomiting, diarrhea or urinary symptoms. ROS: See above HPI for pertinent positives & negatives. A total of 10 systems reviewed and were otherwise negative. PAST MEDICAL HISTORY:See Below PAST SURGICAL HISTORY:See Below FAMILY HISTORY:See Below SOCIAL HISTORY:See Below HOME MEDICATIONS:See Below ALLERGIES:See Below VITALS:See Below PHYSICAL EXAMINATION: GENERAL: Awake, alert, chronically ill-appearing, in no distress HENT: Normocephalic, atraumatic. Oropharynx unremarkable. EYES: Normal conjunctiva. Sclera non-icteric. NECK: Supple. No nuchal rigidity. FROM. No JVD. RESPIRATORY: Diminished at the bases otherwise, clear to auscultation. CARDIAC: Tachcyardic rate, irregular rhythm. Extremities warm and well perfused. Pulses equal. ABDOMEN: Soft, non-distended. No tenderness to palpation. No rebound or guarding. No masses. RECTAL: Deferred. MUSCULOSKELETAL: Chest examination reveals no tenderness. The back is symmetrical on inspection without obvious abnormality. There is no CVA tenderness to palpation. No joint edema. LOWER EXTREMITIES: Calves are equal size bilaterally and non-tender. Scant BLE edema. No discoloration. NEURO: Normal sensorium. No sensory or motor deficits noted. SKIN: No rash or jaundice noted. Schuyler Arciniega MD Past Med/Surg History Medical History Atrial fibrillation dx 08/2020 - on Eliquis -- follows with Dr. Madrigal Bright red rectal bleeding Cancer SKIN CANCER-BASAL CELL/SQUAMOUS CHF (congestive heart failure) CKD (chronic kidney disease) Stage 4 - Follows with Dr. Rider Depression, major, recurrent, in remission Diarrhea Diverticular disease DM type 2 (diabetes mellitus, type 2) IDDM Hypertension Pancreatitis HX Pericardial effusion Pericardial effusion chronic Sclerosing cholangitis S/P liver transplant 1994 Sleep apnea BiPAP Vitamin D deficiency Surgical History Fusion of spine LUMBAR H/O exploratory laparotomy History of appendectomy History of cholecystectomy History of colonoscopy History of esophagogastroduodenoscopy (EGD) History of herniorrhaphy X 2 History of liver biopsy History of oral surgery Posts implanted in mandible for bottom denture History of tooth extraction Transplant LIVER 1994 [facility] [place]) Family History Father Family history of diabetes mellitus Myocardial infarction Heart failure Mother Dementia Denies family history of Ovarian cancer Prostate cancer Breast cancer Colorectal cancer Social History Smoking Status: Former smoker Tobacco Type: Cigarettes Cigarettes Per Day: QUIT 1971; Second Hand Exposure: No; Hx Alcohol Use: No Hx Substance Use: No Preferred Language: Yakut Communication Ability: Effective Visual Impairment: Limited Home Aide Required: No Beliefs That Will Affect Care: None marital status: Current Living Situation: Spouse current occupational status: retired Feels Safe at Home: Yes Dental Care, Regularly: Yes Seatbelt Use: always Sunscreen Use: Yes Assistive Devices: Denture - Upper, Denture - Lower and Glasses Allergies Allergies Allergy/AdvReac Type Severity Reaction Status Date / Time aspirin AdvReac Unknown high doses Verified 01/28/21 19:57 contrindicated d/t hx liver transplant ibuprofen AdvReac Unknown not to Verified 01/28/21 19:57 take due to transplant Home Meds Home Medications Medication Instructions Recorded Confirmed calcium carbonate [Calcium 600] 600 mg PO BID 01/09/19 01/28/21 prednisone 5 mg PO QAM 01/09/19 01/28/21 ursodiol 300 mg PO BID 01/09/19 01/28/21 [facility] 1 cap PO QAM 07/10/19 01/28/21 lidocaine 5 % topical patch 1 patch TOP DAILY PRN 08/10/19 01/28/21 polyethylene glycol 3350 17 gram 17 gm PO DAILY PRN 08/10/19 01/28/21 oral powder packet aspirin 81 mg PO QAM 03/17/20 01/28/21 Tresiba FlexTouch U-100 11 unit SUBCUT QAM 11/21/20 01/28/21 donepezil 10 mg PO HS 11/21/20 01/28/21 dutasteride 0.5 mg PO QDL 11/21/20 01/28/21 fludrocortisone 0.1 mg PO QPM 11/21/20 01/28/21 tacrolimus [Prograf] 2 mg PO BID 11/21/20 01/28/21 tamsulosin [Flomax] 0.4 mg PO QPM 11/21/20 01/28/21 insulin aspart U-100 100 unit/mL See Rx Instructions SUBCUT .COMPLEX 01/09/21 01/28/21 (3 mL) subcutaneous pen acetaminophen 500 mg PO .WITH LUNCH PRN 01/28/21 01/28/21 acetaminophen 650 mg PO BID PRN 01/28/21 01/28/21 gabapentin 100 mg PO TID PRN 01/28/21 01/28/21 Previous Rx's Medication Instructions Recorded hydrocortisone 2.5 % topical cream 1 appln OK DAILY PRN #28.35 gm 03/18/20 with perineal applicator Prolia 60 mg/mL subcutaneous 60 mg SUBCUT Q6MO #1 ml NS 07/22/20 syringe apixaban 2.5 mg tablet 2.5 mg PO BID #60 tab 08/21/20 menthol 0.44 %-zinc oxide 20.6 % 1 applic TOPICAL QID PRN #113 g 09/02/20 topical ointment OneTouch Delica Lancets 33 gauge #300 ea NS 09/12/20 OneTouch Verio test strips #300 ea NS 09/12/20 meclizine 25 mg tablet 25 mg PO DAILY PRN #30 tab 10/09/20 venlafaxine 37.5 mg 37.5 mg PO DAILY@1700 #30 cap 10/09/20 capsule,extended release 24 hr calcitriol 0.5 mcg capsule 0.5 mcg PO QAM 90 Days #90 cap 10/10/20 budesonide 3 mg 9 mg PO DAILY #90 ea 11/28/20 capsule,delayed,extended release metoprolol succinate 50 mg 100 mg PO BID #120 tab 01/01/21 tablet,extended release 24 hr cyanocobalamin (vitamin B-12) 1,000 mcg PO DAILY #30 cap 01/09/21 1,000 mcg capsule amitriptyline 10 mg tablet 10 mg PO .qhs #30 tab 01/16/21 furosemide 20 mg tablet 40 mg PO QAM #90 tab 01/16/21 Results & Data (ED) Vital Signs Vital Signs - 24 hr 01/28/21 15:01 01/28/21 16:20 01/28/21 16:44 Temperature 36.3 C L Temperature Source Temporal Artery Scan Pulse Rate 66 100 H 99 H Pulse Rate [Left Finger] Pulse Rhythm Regular Regular Pulse Strength Normal Respiratory Rate 18 28 H 27 H Respiratory Effort / Characteristics Non-Labored Spontaneous Respiratory Depth Normal Respiratory Pattern Regular Blood Pressure 151/76 H 179/102 H Blood Pressure Mean 101 127 Blood Pressure Position Sitting Pulse Oximetry 99 97 97 Oxygen Delivery Method Room Air Room Air Sepsis Recent Fever Within 48 Hours No Sepsis New/Unexplained Change in Mental Status N/A Sepsis Action Taken by Nursing No Action Required 01/28/21 16:53 01/28/21 16:57 01/28/21 17:00 Temperature Temperature Source Pulse Rate 100 H 97 H Pulse Rate [Left Finger] 85 Pulse Rhythm Regular Pulse Strength Respiratory Rate 28 H 20 18 Respiratory Effort / Characteristics Non-Labored Spontaneous Respiratory Depth Respiratory Pattern Blood Pressure Blood Pressure Mean Blood Pressure Position Pulse Oximetry 98 95 95 Oxygen Delivery Method Room Air Room Air Sepsis Recent Fever Within 48 Hours Sepsis New/Unexplained Change in Mental Status Sepsis Action Taken by Nursing 01/28/21 17:30 01/28/21 18:08 01/28/21 18:19 Temperature Temperature Source Pulse Rate 95 H 101 H 92 H Pulse Rate [Left Finger] Pulse Rhythm Pulse Strength Respiratory Rate 18 25 H 22 Respiratory Effort / Characteristics Respiratory Depth Respiratory Pattern Blood Pressure 174/100 H 140/96 Blood Pressure Mean 124 110 Blood Pressure Position Pulse Oximetry 97 95 Oxygen Delivery Method Sepsis Recent Fever Within 48 Hours Sepsis New/Unexplained Change in Mental Status Sepsis Action Taken by Nursing 01/28/21 20:01 Temperature Temperature Source Pulse Rate 88 Pulse Rate [Left Finger] Pulse Rhythm Pulse Strength Respiratory Rate 19 Respiratory Effort / Characteristics Respiratory Depth Respiratory Pattern Blood Pressure 151/92 H Blood Pressure Mean 111 Blood Pressure Position Pulse Oximetry 96 Oxygen Delivery Method Sepsis Recent Fever Within 48 Hours Sepsis New/Unexplained Change in Mental Status Sepsis Action Taken by Nursing Laboratory Data Attestation: I reviewed the patient's lab results. Result diagrams: 01/28/21 16:39 01/28/21 16:39 Lab Results 01/28/21 01/28/21 01/28/21 Range/Units 16:39 16:39 16:39 WBC 5.82 (4.8-10.8) K/uL RBC 3.71 L (4.7-6.1) M/uL Hgb 11.2 L (14.0-18.0) g/dL Hct 33.8 L (42-52) % MCV 91.1 (80-100) fL MCH 30.2 (25-34) pg MCHC 33.1 (32-36) g/dL RDW Std Deviation 47.8 H (36.4-46.3) fL RDW Coeff of Penelope 14.4 (11.5-14.5) % Plt Count 100 L (130-400) K/uL MPV 11.3 H (7.4-10.4) fL Immature Gran % (Auto) 0.2 % Neut % (Auto) 70.9 % Lymph % (Auto) 22.7 % [place]ac % (Auto) 5.3 % Eos % (Auto) 0.7 % Baso % (Auto) 0.2 % Neut # (Auto) 4.13 (1.4-6.5) K/uL Lymph # (Auto) 1.32 (1.2-3.4) K/uL [place] # (Auto) 0.31 (0.11-0.59) K/uL Eos # (Auto) 0.04 (0-0.5) K/uL Baso # (Auto) 0.01 (0-0.2) K/uL Immature Gran # (Auto) 0.01 (0.00-0.02) K/uL ESR 17 H (0-14) mm/hr PT (9.0-12.0) Seconds INR (0.9-1.1) APTT (21.0-31.0) Seconds PTT Ratio VBG pH (7.36-7.41) VBG pCO2 (38-50) mmHg VBG pO2 mmHg VBG HCO3 mmol/L VBG O2 Saturation % VBG Base Excess mEq/L Barometric Pressure mm/Hg Sodium 138 (136-145) mmol/L Potassium 4.2 (3.5-5.1) mmol/L Chloride 104 (98-107) mmol/L Carbon Dioxide 28 (21-32) mmol/L Anion Gap 6.0 (3-11) BUN 89 H (7-18) mg/dl Creatinine 4.79 H* (0.6-1.4) mg/dl Est Cr Clr Drug Dosing 12.9 ml/min Est GFR ( Amer) 12.3 Est GFR (Non-Af Amer) 10.6 BUN/Creatinine Ratio 18.7 (10-20) Glucose 151 H (70-99) mg/dl Lactate (0.4-2.0) mmol/L Calcium 8.0 L (8.5-10.1) mg/dl Phosphorus 3.0 (2.5-4.9) mg/dl Magnesium 2.3 (1.8-2.4) mg/dl Total Bilirubin 0.3 (0.2-1) mg/dl Direct Bilirubin < 0.1 (0-0.2) mg/dl AST 17 (15-37) U/L ALT 30 (12-78) U/L Alkaline Phosphatase 87 (45-117) U/L Total Creatine Kinase 55 (39-308) U/L Troponin I < 0.015 (0-0.045) ng/ml NT-Pro-B Natriuret Pep 39117 H (0-1800) pg/ml Total Protein 7.1 (6.4-8.2) gm/dl Albumin 3.5 (3.4-5.0) gm/dl Globulin 3.6 (2.5-4.0) gm/dl Albumin/Globulin Ratio 1.0 (0.9-2) Lipase 70 L (73-393) U/L Procalcitonin (0-0.5) ng/ml TSH 5.650 H (0.300-4.500) uIu/ml Free T4 1.05 (0.8-1.6) ng/dl COVID-19 Eval Order SARS-CoV-2 (PCR) (Negative) Influenza Type A (PCR) (Neg) Influenza Type B (PCR) (Neg) RSV (RT-PCR) (Neg) 01/28/21 01/28/21 01/28/21 Range/Units 16:56 16:56 17:04 WBC (4.8-10.8) K/uL RBC (4.7-6.1) M/uL Hgb (14.0-18.0) g/dL Hct (42-52) % MCV (80-100) fL MCH (25-34) pg MCHC (32-36) g/dL RDW Std Deviation (36.4-46.3) fL RDW Coeff of Penelope (11.5-14.5) % Plt Count (130-400) K/uL MPV (7.4-10.4) fL Immature Gran % (Auto) % Neut % (Auto) % Lymph % (Auto) % [place] % (Auto) % Eos % (Auto) % Baso % (Auto) % Neut # (Auto) (1.4-6.5) K/uL Lymph # (Auto) (1.2-3.4) K/uL [place] # (Auto) (0.11-0.59) K/uL Eos # (Auto) (0-0.5) K/uL Baso # (Auto) (0-0.2) K/uL Immature Gran # (Auto) (0.00-0.02) K/uL ESR (0-14) mm/hr PT (9.0-12.0) Seconds INR (0.9-1.1) APTT (21.0-31.0) Seconds PTT Ratio VBG pH 7.36 (7.36-7.41) VBG pCO2 54 H (38-50) mmHg VBG pO2 19 mmHg VBG HCO3 30 mmol/L VBG O2 Saturation < 60.0 % VBG Base Excess 3.8 mEq/L Barometric Pressure 731.2 mm/Hg Sodium (136-145) mmol/L Potassium (3.5-5.1) mmol/L Chloride (98-107) mmol/L Carbon Dioxide (21-32) mmol/L Anion Gap (3-11) BUN (7-18) mg/dl Creatinine (0.6-1.4) mg/dl Est Cr Clr Drug Dosing ml/min Est GFR ( Amer) Est GFR (Non-Af Amer) BUN/Creatinine Ratio (10-20) Glucose (70-99) mg/dl Lactate (0.4-2.0) mmol/L Calcium (8.5-10.1) mg/dl Phosphorus (2.5-4.9) mg/dl Magnesium (1.8-2.4) mg/dl Total Bilirubin (0.2-1) mg/dl Direct Bilirubin (0-0.2) mg/dl AST (15-37) U/L ALT (12-78) U/L Alkaline Phosphatase (45-117) U/L Total Creatine Kinase (39-308) U/L Troponin I (0-0.045) ng/ml NT-Pro-B Natriuret Pep (0-1800) pg/ml Total Protein (6.4-8.2) gm/dl Albumin (3.4-5.0) gm/dl Globulin (2.5-4.0) gm/dl Albumin/Globulin Ratio (0.9-2) Lipase (73-393) U/L Procalcitonin (0-0.5) ng/ml TSH (0.300-4.500) uIu/ml Free T4 (0.8-1.6) ng/dl COVID-19 Eval Order CovFluRsv at [facility] SARS-CoV-2 (PCR) NEGATIVE (Negative) Influenza Type A (PCR) Negative (Neg) Influenza Type B (PCR) Negative (Neg) RSV (RT-PCR) Negative (Neg) 01/28/21 01/28/21 01/28/21 Range/Units 17:06 17:06 20:56 WBC (4.8-10.8) K/uL RBC (4.7-6.1) M/uL Hgb (14.0-18.0) g/dL Hct (42-52) % MCV (80-100) fL MCH (25-34) pg MCHC (32-36) g/dL RDW Std Deviation (36.4-46.3) fL RDW Coeff of Penelope (11.5-14.5) % Plt Count (130-400) K/uL MPV (7.4-10.4) fL Immature Gran % (Auto) % Neut % (Auto) % Lymph % (Auto) % [place] % (Auto) % Eos % (Auto) % Baso % (Auto) % Neut # (Auto) (1.4-6.5) K/uL Lymph # (Auto) (1.2-3.4) K/uL [place] # (Auto) (0.11-0.59) K/uL Eos # (Auto) (0-0.5) K/uL Baso # (Auto) (0-0.2) K/uL Immature Gran # (Auto) (0.00-0.02) K/uL ESR (0-14) mm/hr PT 10.5 (9.0-12.0) Seconds INR 1.0 (0.9-1.1) APTT 28.5 (21.0-31.0) Seconds PTT Ratio 1.1 VBG pH (7.36-7.41) VBG pCO2 (38-50) mmHg VBG pO2 mmHg VBG HCO3 mmol/L VBG O2 Saturation % VBG Base Excess mEq/L Barometric Pressure mm/Hg Sodium (136-145) mmol/L Potassium (3.5-5.1) mmol/L Chloride (98-107) mmol/L Carbon Dioxide (21-32) mmol/L Anion Gap (3-11) BUN (7-18) mg/dl Creatinine (0.6-1.4) mg/dl Est Cr Clr Drug Dosing ml/min Est GFR ( Amer) Est GFR (Non-Af Amer) BUN/Creatinine Ratio (10-20) Glucose (70-99) mg/dl Lactate 0.9 (0.4-2.0) mmol/L Calcium (8.5-10.1) mg/dl Phosphorus (2.5-4.9) mg/dl Magnesium (1.8-2.4) mg/dl Total Bilirubin (0.2-1) mg/dl Direct Bilirubin (0-0.2) mg/dl AST (15-37) U/L ALT (12-78) U/L Alkaline Phosphatase (45-117) U/L Total Creatine Kinase (39-308) U/L Troponin I (0-0.045) ng/ml NT-Pro-B Natriuret Pep (0-1800) pg/ml Total Protein (6.4-8.2) gm/dl Albumin (3.4-5.0) gm/dl Globulin (2.5-4.0) gm/dl Albumin/Globulin Ratio (0.9-2) Lipase (73-393) U/L Procalcitonin 0.08 (0-0.5) ng/ml TSH (0.300-4.500) uIu/ml Free T4 (0.8-1.6) ng/dl COVID-19 Eval Order SARS-CoV-2 (PCR) (Negative) Influenza Type A (PCR) (Neg) Influenza Type B (PCR) (Neg) RSV (RT-PCR) (Neg) Administered Medications Amitriptyline HCl (Amitriptyline Hcl 10 Mg Tab) 10 mg PO HS [facility] Stop: 02/27/21 22:52 Last Admin: 01/28/21 23:51 Dose: 10 mg Documented by: [id number] Donepezil HCl (Donepezil Hcl 10 Mg Tab) 10 mg PO HS [facility] Stop: 02/27/21 22:52 Last Admin: 01/28/21 23:51 Dose: 10 mg Documented by: [id number] Fludrocortisone Acetate (Fludrocortisone Acetate 0.1 Mg Tab) 0.1 mg PO QPM MIRIAM Stop: 02/27/21 22:52 Last Admin: 01/28/21 23:51 Dose: 0.1 mg Documented by: [id number] Heparin Sodium/Dextrose (Heparin Sodium/Dextrose) 25,000 units in 500 mls @ 27 mls/hr IV .[id number] [facility]; Protocol Stop: 02/27/21 20:59 Last Admin: 01/29/21 01:22 Dose: 1,350 units/hr, 27 mls/hr Documented by: [id number] Cosigned by: [id number] Metoprolol Succinate (Metoprolol Succ 50mg Ext Rel Tab) 100 mg PO BID MIRIAM Stop: 02/27/21 22:52 Last Admin: 01/28/21 23:52 Dose: 100 mg Documented by: [id number] Tacrolimus (Tacrolimus 1 Mg Cap) 2 mg PO BID MIRIAM Stop: 02/27/21 22:52 Last Admin: 01/28/21 23:51 Dose: 2 mg Documented by: [id number] Tamsulosin HCl (Tamsulosin Hcl 0.4 Mg Cap) 0.4 mg PO QPM MIRIAM Stop: 02/27/21 22:52 Last Admin: 01/28/21 23:51 Dose: 0.4 mg Documented by: [id number] Ursodiol (Ursodiol 300 Mg Cap) 300 mg PO BID MIRIAM Stop: 02/27/21 22:52 Last Admin: 01/28/21 23:51 Dose: 300 mg Documented by: [id number] Discontinued Medications Albuterol (Albut/Ipratrop 3mg/0.5mg Neb 3 Ml Vial) 3 ml NEB NOW STA Stop: 01/28/21 16:38 Last Admin: 01/28/21 16:56 Dose: 3 ml Documented by: [id number] Furosemide (Furosemide 40 Mg/4 Ml Vial) 40 mg IV NOW STA Stop: 01/28/21 18:42 Last Admin: 01/28/21 19:04 Dose: 40 mg Documented by: [id number] Heparin Sodium/Dextrose (Heparin Iv Standard *No* Bolus) 1 ea N/A ONE ONE; Protocol Stop: 01/28/21 21:01 Last Admin: 01/29/21 01:59 Dose: Not Given Documented by: [id number] Piperacillin Sod/Tazobactam (Sod 3.375 gm/ Dextrose) 100 ml in 115 mls @ 230 mls/hr IV NOW STA Stop: 01/28/21 20:27 Last Infusion: 01/28/21 21:52 Dose: 0 mls/hr Documented by: [id number] Admin: 01/28/21 21:14 Dose: 230 mls/hr Documented by: [id number] Vancomycin HCl 1,500 mg/ (Sodium Chloride) 530 mls @ 200 mls/hr IV NOW ONE Stop: 01/28/21 22:36 Last Infusion: 01/29/21 01:03 Dose: 0 mls/hr Documented by: [id number] Admin: 01/28/21 21:14 Dose: 200 mls/hr Documented by: [id number] Discharge Plan Visit Data Chief Complaint: Shortness of Breath/Dyspnea Stated Complaint: SOB, WORSE WITH WALKING ED Provider: Schuyler Arciniega Discharge Problem: Dyspnea on minimal exertion, Pericardial effusion, Bilateral pleural effusion, CKD (chronic kidney disease) Patient Disposition: Admitted As Inpatient Discharge Instructions Interventions: ED Discharge Assessment Last Done: 01/28/21 22:27 Discharge Problem: CKD (chronic kidney disease) Qualifiers: Chronic kidney disease stage: stage 4 (severe) Qualified Code(s): N18.4 - Chronic kidney disease, stage 4 (severe)
[2021-01-28 17:53] LABS: T4 Free Thyroxine 1.05 ng/dl (0.8-1.6)
[2021-01-28 18:12] LABS: Influenza A virus by PCR Negative (Neg); Influenza B virus by PCR Negative (Neg); RSV by PCR Negative (Neg); SARS CoV2 RNA(COVID-19) InHosp NEGATIVE (Negative)
--- NOTE | 2021-01-28 18:26 | CT Scan Report ---
CT chest diagnostic wo con CLINICAL HISTORY: Shortness of breath COMPARISON STUDY: Chest x-ray dated 01/28/2021, CT scan dated 05/10/2013 CT DOSE: 276.44 mGy.cm TECHNIQUE: CT of the thorax was performed from the thoracic inlet to the lung bases. Images are revi ewed in the axial, sagittal, and coronal planes. IV contrast was not administered for this examinatio n. A dose lowering technique was utilized adhering to the principles of ALARA. FINDINGS: Thyroid: Imaged portions of the thyroid gland are normal in appearance. Thoracic aorta: The thoracic aorta is normal in course and caliber, noting standard 3 vessel arch judit jay. Heart: The heart is enlarged. There is a moderate pericardial effusion, minimally smaller than on the preceding study Lungs and pleural spaces: There is a moderate right-sided pleural effusion and [id number] left pleural effusion. There are dependent pulmonary airspace opacities statistically representing compre ssive atelectasis. There is hyperdense material within the atelectatic lung. Prior aspiration cannot be excluded. Mediastinum: There is no evidence of pathologic mediastinal lymphadenopathy Alejandra: There is no evidence of pathologic hilar adenopathy given the limitations of a noncontrast stud y Axilla: There is no evidence of pathologic axillary lymphadenopathy Upper abdomen: There is persistent pneumobilia. The spleen is enlarged. There is trace perisplenic f luid. There is upper abdominal ascites. Skeletal structures: There is an acute/subacute superior endplate L1 compression fracture IMPRESSION: 1. Cardiomegaly, and moderate pericardial effusion 2. Bilateral pleural effusions right larger than left 3. Dependent lower lobe pulmonary airspace opacities likely representing compressive atelectasis. The re is hyperdense material within the atelectatic lung, prior aspiration cannot be excluded 4. Splenomegaly and upper abdominal ascites 5. Acute/subacute superior endplate L1 compression fracture ACT 112: Negative or not required by law. Electronically signed by: Stewart Enciso M.D. 01/28/2021 6:24 PM
[2021-01-28] MEDS ORDERED: FUROSEMIDE 40 MG/4 ML VIAL IV STA ×2 (18:41→20:44)
[2021-01-28] MEDS ORDERED: PIPERACILLIN/TAZOBACTAM 3.375 GM in DEXTROSE 5% 100 ML/100 ML BAG IV STA (19:58)
[2021-01-28] MEDS ORDERED: VANCOMYCIN HCL 1,500 MG in SODIUM CHLORIDE 0.9% 500 ML IV ONE (19:58)
[2021-01-28] MEDS ORDERED: VANCOMYCIN CONSULT ACTIVE PRN ×2 (19:58→22:39)
[2021-01-28] MEDS ORDERED: PIPERACILL/TAZOBAC CONSULT ACTIVE PRN ×2 (19:58→22:36)
--- NOTE | 2021-01-28 20:57 | History & Physical Report ---
Date of Service January 28, 2021 Assessment & Plan (1) Acute dyspnea: Patient with acute dyspnea in the setting of new moderate bilateral pleural effusions, is feeling better following 40mg Lasix and nebulizer - Patient is on therapeutic apixaban 2.5 BID- Will hold dose tonight and start on heparin drip for possible thoracentesis in the morning - Likely transudative however can't rule out infective process with atelectasis- CRP, PCT and Lactate pending - BNP is in baseline for the patient - Chronic pericardial effusion is less - Pulmonary consult for thoracentesis-- diagnostic/therapuetic - ASA on hold while on heparin drip, continue after with apixaban (2) PAF (paroxysmal atrial fibrillation): Currently in NSR with PAC - Continue rate control with Toprol- follow renal function as may need to adjust dose based on clearance to avoid accumulation - Follow electrolytes (3) Pleural effusion: As above, would expect to be transudative with history, if so should respond to diuretics however slowly. - maybe component of worsening renal failure and clearance but BUN and SKEIN DRIER stable since September. - Appreciate pulmonary and nephrology assistance. - If thoracentesis to be performed heparin stop 3 hours prior and then bridge when appropriate (4) Pericardial effusion: Stable - ECHO in morning - no alternans or paradoxus (5) Chronic kidney disease, stage IV (severe): Stable BUN and SKEIN DRIER - Continue to diurese - Patient was to have follow up with Dr. Otero this week for mapping in plan for creation of AVF - consider obtaining while in house - Has completed the [employer] educational program. - Calcium stable while off his calcitriol-- mildly low at admission, follow with diet - Nephrology consulted to follow renal function and diuresing goals (6) Memory impairment: Patient and state mild memory impairment and no new changes - continue donepezil 10 mg - Avoid sedating agents and benzo as possible - Re-orientation in hospital, promote sleep wake cycles - Fall risk protocol per floor (7) Liver transplant status: Liver enzymes normal - Continue Prograf, prednisone, Ursodiol, - wants to bring Prograf from home tomorrow, as formulary normally switches to generic, if so order will just need to be changed. 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 Rider, afib, chronic pericardial effusion followed by Dr. 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 Hewitt. He comes to the emergency room for complaints of increased shortness of breath. The HPI was gathered from the patient and secondary to the patient being hard of hearing. The paitent's shortness of breath has been ongoing, but got progressively worse ~ Janurary. Since then his walking distance has decreased to around 450 feet, where as before he was able to do about 200 yards, and he now has to stop to take a break going up and down his 13 steps at home. The shortness of breath is not associated with any chest pain or palpitations, light headedness or dizziness. It takes him about 10 minutes to catch his breath. In the Emergency room he had a CT scan of his chest performed. This shows bilateral pulmonary effusions moderate with right > left and moderate pericardial effusion that reports less than previously. He has recently had his diuretic dosing changed and no change in his breathlessness reported by his . She also endorses that his lower extremity edema appears worse at this time as well. Patient will be admitted for continued workup of breathlessness, pleural effusions, monitoring of renal function, and heart function. Allergies Allergy/AdvReac Type Severity Reaction Status Date / Time aspirin AdvReac Unknown high doses Verified 01/28/21 19:57 contrindicated d/t hx liver transplant ibuprofen AdvReac Unknown not to Verified 01/28/21 19:57 take due to transplant Home Medications Medication Instructions Recorded Confirmed Type calcium carbonate [Calcium 600] 600 mg PO BID 01/09/19 01/28/21 History prednisone 5 mg PO QAM 01/09/19 01/28/21 History ursodiol 300 mg PO BID 01/09/19 01/28/21 History [facility] 1 cap PO QAM 07/10/19 01/28/21 History lidocaine 5 % topical patch 1 patch TOP DAILY PRN 08/10/19 01/28/21 History polyethylene glycol 3350 17 gram 17 gm PO DAILY PRN 08/10/19 01/28/21 History oral powder packet aspirin 81 mg PO QAM 03/17/20 01/28/21 History hydrocortisone 2.5 % topical cream 1 appln [place] DAILY PRN #28.35 gm 03/18/20 01/28/21 Rx with perineal applicator Prolia 60 mg/mL subcutaneous 60 mg SUBCUT Q6MO #1 ml NS 07/22/20 01/28/21 Rx syringe apixaban 2.5 mg tablet 2.5 mg PO BID #60 tab 08/21/20 01/28/21 Rx menthol 0.44 %-zinc oxide 20.6 % 1 applic TOPICAL QID PRN #113 g 09/02/20 01/28/21 Rx topical ointment OneTouch Delica Lancets 33 gauge #300 ea NS 09/12/20 01/16/21 Rx OneTouch Verio test strips #300 ea NS 09/12/20 01/16/21 Rx meclizine 25 mg tablet 25 mg PO DAILY PRN #30 tab 10/09/20 01/28/21 Rx venlafaxine 37.5 mg 37.5 mg PO DAILY@1700 #30 cap 10/09/20 01/28/21 Rx capsule,extended release 24 hr calcitriol 0.5 mcg capsule 0.5 mcg PO QAM 90 Days #90 cap 10/10/20 01/28/21 Rx Tresiba FlexTouch U-100 11 unit SUBCUT QAM 11/21/20 01/28/21 History donepezil 10 mg PO HS 11/21/20 01/28/21 History dutasteride 0.5 mg PO QDL 11/21/20 01/28/21 History fludrocortisone 0.1 mg PO QPM 11/21/20 01/28/21 History tacrolimus [Prograf] 2 mg PO BID 11/21/20 01/28/21 History tamsulosin [Flomax] 0.4 mg PO QPM 11/21/20 01/28/21 History budesonide 3 mg 9 mg PO DAILY #90 ea 11/28/20 01/28/21 Rx capsule,delayed,extended release metoprolol succinate 50 mg 100 mg PO BID #120 tab 01/01/21 01/28/21 Rx tablet,extended release 24 hr cyanocobalamin (vitamin B-12) 1,000 mcg PO DAILY #30 cap 01/09/21 01/28/21 Rx 1,000 mcg capsule insulin aspart U-100 100 unit/mL See Rx Instructions SUBCUT .COMPLEX 01/09/21 01/28/21 History (3 mL) subcutaneous pen amitriptyline 10 mg tablet 10 mg PO .qhs #30 tab 01/16/21 01/28/21 Rx furosemide 20 mg tablet 40 mg PO QAM #90 tab 01/16/21 01/28/21 Rx acetaminophen 500 mg PO .WITH LUNCH PRN 01/28/21 01/28/21 History acetaminophen 650 mg PO BID PRN 01/28/21 01/28/21 History gabapentin 100 mg PO TID PRN 01/28/21 01/28/21 History Past Med/Surg History Medical History (Updated 01/29/21 @ 19:35 by Tip Hernandez MD) Atrial fibrillation dx 08/2020 - on Eliquis -- follows with Dr. Madrigal Bright red rectal bleeding Cancer SKIN CANCER-BASAL CELL/SQUAMOUS CHF (congestive heart failure) CKD (chronic kidney disease) Stage 4 - Follows with Dr. Rider Compression fracture Depression, major, recurrent, in remission Diarrhea Diverticular disease DM type 2 (diabetes mellitus, type 2) IDDM Hypertension Pancreatitis HX Pericardial effusion Pericardial effusion chronic Sclerosing cholangitis S/P liver transplant 1994 Secondary hyperparathyroidism of renal origin Sleep apnea BiPAP Stage 5 chronic kidney disease not on chronic dialysis Vitamin D deficiency Surgical History Fusion of spine LUMBAR H/O exploratory laparotomy History of appendectomy History of cholecystectomy History of colonoscopy History of esophagogastroduodenoscopy (EGD) History of herniorrhaphy X 2 History of liver biopsy History of oral surgery Posts implanted in mandible for bottom denture History of tooth extraction Transplant LIVER 1994 IN [place] ([facility]) Family History Father Family history of diabetes mellitus Myocardial infarction Heart failure Mother Dementia Denies family history of Ovarian cancer Prostate cancer Breast cancer Colorectal cancer Social History Smoking Status: Former smoker Tobacco Type: Cigarettes Cigarettes Per Day: QUIT 1971; Second Hand Exposure: No; Hx Alcohol Use: No Hx Substance Use: No Preferred Language: French Communication Ability: Effective Visual Impairment: Limited 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 Beliefs That Will Affect Care: None marital status: Current Living Situation: Spouse current occupational status: retired Feels Safe at Home: Yes Dental Care, Regularly: Yes Seatbelt Use: always Sunscreen Use: Yes Assistive Devices: Denture - Upper, Denture - Lower, Glasses and Hearing Aid - Bilateral Review of Systems Review of Systems: REVIEW OF SYSTEMS: Constitutional: No fever, sweats or chills Eyes: No diplopia, no worsening or blurred vision ENT: (+) difficulty hearing wears bilateral hearing aids, no trouble swallowing Respiratory: (+) cough, (+) dyspnea at rest and exertion, CPAP use at night with no orthopnea, (-) Sputum Cardiovascular: No chest pain, tightness or palpitations Abdomen: No pain, nausea, vomiting, diarrhea or constipation Musculoskeletal: No joint pain, calf pain, swelling Neurologic: (+) memory problems, No weakness, numbness/tingling, or balance problems Psychiatric: (+) depression Skin: (+) bruising to abdomen from insulin Physical Exam Physical Exam: PHYSICAL EXAM: General: awake, alert, no apparent distress Head: Normocephalic, atraumatic ENT: PERRL, EOMI, no pharyngeal exudate, mucous membranes moist Neuro: AAO x 3, speech clear and appropriate, strength intact bilaterally 5/5, sensation intact and equal all extremities and dermatomes, no pronator drift Chest: equal rise and fall of the chest, no accessory muscle use, no heaves or thirlls, deminshed breath sounds throughout RT>LT to auscultation, Cardiac: irregular rate and rhythm, telemetry reviewed, skin warm dry, cap refill <3 seconds, peripheral pulses +2 no JVD, no murmur, +2-3 edema GI: NABS x 4 quadrants, soft, nontender to palpation, no rebound, guarding or tenderness : Spontaneously voiding, no pain, no CVA tenderness, Extremities: Normal inspection, no peripheral edema or erythema, calfs nontender to palpation Psych: Normal mood and affect Skin: bruising to bilateral hands, bruising to abdomen from injection sites, no rash or erythema Results & Data Results & Data ([facility]) Vital Signs (Past 12 Hours) Vital Signs Temp Pulse Pulse Resp BP Pulse Ox 01/28/21 18:19 92 H 22 140/96 95 01/28/21 18:08 101 H 25 H 01/28/21 17:30 95 H 18 174/100 H 97 01/28/21 17:00 97 H 18 95 01/28/21 16:57 85 20 95 01/28/21 16:53 100 H 28 H 98 01/28/21 16:44 99 H 27 H 179/102 H 97 01/28/21 16:20 100 H 28 H 97 01/28/21 15:01 36.3 C L 66 18 151/76 H 99 Laboratory Results Abnormal lab results 01/28/21 01/28/21 01/28/21 Range/Units 16:39 16:39 17:04 RBC 3.71 L (4.7-6.1) M/uL Hgb 11.2 L (14.0-18.0) g/dL Hct 33.8 L (42-52) % RDW Std Deviation 47.8 H (36.4-46.3) fL Plt Count 100 L (130-400) K/uL MPV 11.3 H (7.4-10.4) fL VBG pCO2 54 H (38-50) mmHg BUN 89 H (7-18) mg/dl Creatinine 4.79 H* (0.6-1.4) mg/dl Glucose 151 H (70-99) mg/dl Calcium 8.0 L (8.5-10.1) mg/dl NT-Pro-B Natriuret Pep 47476 H (0-1800) pg/ml Lipase 70 L (73-393) U/L TSH 5.650 H (0.300-4.500) uIu/ml Diagnostic Findings CT chest diagnostic wo con CLINICAL HISTORY: Shortness of breath COMPARISON STUDY: Chest x-ray dated 01/28/2021, CT scan dated 05/10/2013 CT DOSE: 276.44 mGy.cm TECHNIQUE: CT of the thorax was performed from the thoracic inlet to the lung bases. Images are reviewed in the axial, sagittal, and coronal planes. IV contrast was not administered for this examination. A dose lowering technique was utilized adhering to the principles of ALARA. FINDINGS: Thyroid: Imaged portions of the thyroid gland are normal in appearance. Thoracic aorta: The thoracic aorta is normal in course and caliber, noting standard 3 vessel arch anatomy. Heart: The heart is enlarged. There is a moderate pericardial effusion, minimally smaller than on the preceding study Lungs and pleural spaces: There is a moderate right-sided pleural effusion and [id number] left pleural effusion. There are dependent pulmonary airspace opacities statistically representing compressive atelectasis. There is hyperdense material within the atelectatic lung. Prior aspiration cannot be excluded. Mediastinum: There is no evidence of pathologic mediastinal lymphadenopathy Alejandra: There is no evidence of pathologic hilar adenopathy given the limitations of a noncontrast study Axilla: There is no evidence of pathologic axillary lymphadenopathy Upper abdomen: There is persistent pneumobilia. The spleen is enlarged. There is trace perisplenic fluid. There is upper abdominal ascites. Skeletal structures: There is an acute/subacute superior endplate L1 compression fracture IMPRESSION: 1. Cardiomegaly, and moderate pericardial effusion 2. Bilateral pleural effusions right larger than left 3. Dependent lower lobe pulmonary airspace opacities likely representing compressive atelectasis. There is hyperdense material within the atelectatic lung, prior aspiration cannot be excluded 4. Splenomegaly and upper abdominal ascites 5. Acute/subacute superior endplate L1 compression fracture XR chest 1V portable CLINICAL HISTORY: Atypical chest pain COMPARISON STUDY: 09/15/2020 FINDINGS: The heart is enlarged. There are bilateral pleural effusions right greater than left. There is mild pulmonary vascular congestion. There are bilateral pulmonary airspace opacities, atelectasis versus pneumonia.[ IMPRESSION: 1. Cardiomegaly and radiographic evidence of mild pulmonary vascular congestion with bilateral pleural effusions right greater than left 2. Bibasilar pulmonary airspace opacities, atelectasis versus pneumonia. 3. Clinical and radiographic follow-up are recommended. Medications Administered Vancomycin HCl 1,500 mg/ (Sodium Chloride) 530 mls @ 200 mls/hr IV NOW ONE Stop: 01/28/21 22:36 Last Admin: 01/28/21 21:14 Dose: 200 mls/hr Documented by: [id number] Discontinued Medications Albuterol (Albut/Ipratrop 3mg/0.5mg Neb 3 Ml Vial) 3 ml NEB NOW STA Stop: 01/28/21 16:38 Last Admin: 01/28/21 16:56 Dose: 3 ml Documented by: [id number] Furosemide (Furosemide 40 Mg/4 Ml Vial) 40 mg IV NOW STA Stop: 01/28/21 18:42 Last Admin: 01/28/21 19:04 Dose: 40 mg Documented by: [id number] Piperacillin Sod/Tazobactam (Sod 3.375 gm/ Dextrose) 100 ml in 115 mls @ 230 mls/hr IV NOW STA Stop: 01/28/21 20:27 Last Admin: 01/28/21 21:14 Dose: 230 mls/hr Documented by: [id number] Home Medications calcium carbonate [Calcium 600] 600 mg PO BID 01/09/19 [History Confirmed 01/28/21] prednisone 5 mg PO QAM 01/09/19 [History Confirmed 01/28/21] ursodiol 300 mg PO BID 01/09/19 [History Confirmed 01/28/21] [facility] 1 cap PO QAM 07/10/19 [History Confirmed 01/28/21] lidocaine 5 % topical patch 1 patch TOP DAILY PRN 08/10/19 [History Confirmed 01/28/21] polyethylene glycol 3350 17 gram oral powder packet 17 gm PO DAILY PRN 08/10/19 [History Confirmed 01/28/21] aspirin 81 mg PO QAM 03/17/20 [History Confirmed 01/28/21] hydrocortisone 2.5 % topical cream with perineal applicator 1 appln TX DAILY PRN #28.35 gm 03/18/20 [Rx Confirmed 01/28/21] Prolia 60 mg/mL subcutaneous syringe 60 mg SUBCUT Q6MO #1 ml NS 07/22/20 [Rx Confirmed 01/28/21] apixaban 2.5 mg tablet 2.5 mg PO BID #60 tab 08/21/20 [Rx Confirmed 01/28/21] menthol 0.44 %-zinc oxide 20.6 % topical ointment 1 applic TOPICAL QID PRN #113 g 09/02/20 [Rx Confirmed 01/28/21] OneTouch Delica Lancets 33 gauge #300 ea NS 09/12/20 [Rx Confirmed 01/16/21] OneTouch Verio test strips #300 ea NS 09/12/20 [Rx Confirmed 01/16/21] meclizine 25 mg tablet 25 mg PO DAILY PRN #30 tab 10/09/20 [Rx Confirmed 01/28/21] venlafaxine 37.5 mg capsule,extended release 24 hr 37.5 mg PO DAILY@1700 #30 cap 10/09/20 [Rx Confirmed 01/28/21] calcitriol 0.5 mcg capsule 0.5 mcg PO QAM 90 Days #90 cap 10/10/20 [Rx Confirmed 01/28/21] Tresiba FlexTouch U-100 11 unit SUBCUT QAM 11/21/20 [History Confirmed 01/28/21] donepezil 10 mg PO HS 11/21/20 [History Confirmed 01/28/21] dutasteride 0.5 mg PO QDL 11/21/20 [History Confirmed 01/28/21] fludrocortisone 0.1 mg PO QPM 11/21/20 [History Confirmed 01/28/21] tacrolimus [Prograf] 2 mg PO BID 11/21/20 [History Confirmed 01/28/21] tamsulosin [Flomax] 0.4 mg PO QPM 11/21/20 [History Confirmed 01/28/21] budesonide 3 mg capsule,delayed,extended release 9 mg PO DAILY #90 ea 11/28/20 [Rx Confirmed 01/28/21] metoprolol succinate 50 mg tablet,extended release 24 hr 100 mg PO BID #120 tab 01/01/21 [Rx Confirmed 01/28/21] cyanocobalamin (vitamin B-12) 1,000 mcg capsule 1,000 mcg PO DAILY #30 cap 01/09/21 [Rx Confirmed 01/28/21] insulin aspart U-100 100 unit/mL (3 mL) subcutaneous pen See Rx Instructions SUBCUT .COMPLEX 01/09/21 [History Confirmed 01/28/21] amitriptyline 10 mg tablet 10 mg PO .qhs #30 tab 01/16/21 [Rx Confirmed 01/28/21] furosemide 20 mg tablet 40 mg PO QAM #90 tab 01/16/21 [Rx Confirmed 01/28/21] acetaminophen 500 mg PO .WITH LUNCH PRN 01/28/21 [History Confirmed 01/28/21] acetaminophen 650 mg PO BID PRN 01/28/21 [History Confirmed 01/28/21] gabapentin 100 mg PO TID PRN 01/28/21 [History Confirmed 01/28/21] Active Medications Vancomycin HCl 1,500 mg/ (Sodium Chloride) 530 mls @ 200 mls/hr IV NOW ONE Stop: 01/28/21 22:36 Last Admin: 01/28/21 21:14 Dose: 200 mls/hr Documented by: Furosemide 40 mg/ Syringe 4 mls @ 4 mls/min IV Q8H [id number] Stop: 01/29/21 12:00 Heparin Sodium/Dextrose (Heparin Sodium/Dextrose) 25,000 units in 500 mls @ 27 mls/hr IV .[id number] MIRIAM; Protocol Stop: 02/27/21 20:59 Miscellaneous Information (Piperacill/Tazobac Consult Active) 1 ea N/A UD PRN PRN Reason: Consult Stop: 02/27/21 19:57 Miscellaneous Information (Vancomycin Consult Active) 1 ea N/A UD PRN PRN Reason: Consult Stop: 02/27/21 19:57 ECG Additional Comments: Sinus bradycardia with occasional Premature atrial complexes Possible Anterior infarct (cited on or before 16-SEP-2020) Abnormal ECG When compared with ECG of 16-SEP-2020 00:00, Sinus rhythm has replaced Atrial fibrillation Code Status & VTE Plan Code Status CODE: FULL VTE: SCD's, Heparin drip VTE Prophylaxis Plan VTE Prophylaxis will be ordered: Yes Supervising Physician Co-Signing Physician Notes Attending addendum: I have physically seen this patient, have supervised the ADRIANNA's activities, and agree with the H&P unless as otherwise noted. Assessment and Plan: Acute dyspnea/right > left pleural effusions/moderate pericardial effusion/PAF/NSVT- The patient will be admitted to telemetry for serial cardiac enzymes, serial EKG's, cardiac rhythm monitoring and a 2-D echocardiogram with Dopplers. Continue metoprolol succinate Hold apixaban and aspirin overnight, and start patient on heparin drip for possible thoracentesis in the a.m. Unlikely that he will have sufficient improvement in decreasing size of pleural effusions with diuresis alone. CKD stage IV- Follow serial BUN and creatinine Continue Lasix as noted Plans for AVF with Dr. Otero as outpatient, may need to be done as inpatient Consult nephrology Liver transplant status- Continue Prograf, prednisone and ursodiol Follow for potential need of stress dose hydrocortisone IV Diabetes mellitus- Check hemoglobin A1c Insulin management as noted Remaining orders and notations as noted PG Care Time/CCT Total # of Minutes Spent Total Time Spent with Patient: Total time spent is greater than 50% in coordination of care (as documented) at patient's floor/unit and/or counseling patient: Coding Level of Care Code 54029 Initial Inpt Care Lvl 3 Diagnoses Acute dyspnea R06.00 PAF (paroxysmal atrial fibrillation) I48.0 Pleural effusion J90 Pericardial effusion I31.3 Chronic kidney disease, stage IV (severe) N18.4 Memory impairment R41.3 Liver transplant status Z94.4 Type 2 diabetes mellitus E11.22; N18.4; Z79.4 Chronic kidney disease stage: stage 4 (severe) Diabetes mellitus complication detail: with chronic kidney disease Diabetes mellitus complication status: with kidney complications Diabetes mellitus prison insulin use: with prison use Hypothyroidism E03.9 Hypothyroidism type: unspecified Obstructive sleep apnea G47.33 (1) Type 2 diabetes mellitus Chronic kidney disease stage: stage 4 (severe) Diabetes mellitus complication detail: with chronic kidney disease Diabetes mellitus complication status: with kidney complications Diabetes mellitus 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
[2021-01-28] MEDS ORDERED: Heparin IV Adult Wt-Based Standard *NO* Bolus Protocol ONE (21:00)
[2021-01-28 22:39] LABS: Partial Thromboplastin Ratio 1.1; Partial Thromboplastin Time 28.5 Seconds (21.0-31.0); Prothrombin Time 10.5 Seconds (9.0-12.0)
[2021-01-28] MEDS ORDERED: ACETAMINOPHEN 325 MG TAB PO PRN (22:53)
[2021-01-28] MEDS ORDERED: GABAPENTIN 100 MG CAP PO PRN (22:53)
[2021-01-28] MEDS ORDERED: MECLIZINE HCL 25 MG TAB PO PRN (22:53)
[2021-01-28] MEDS ORDERED: ACETAMINOPHEN HOME PACK 500 MG TABLET PO PRN (22:53)
[2021-01-28] MEDS ORDERED: POLYETHYLENE (MIRALAX) 17 GM PACK PO PRN (22:53)
[2021-01-28] MEDS ORDERED: PHARMACY GLYCEMIC MGMT CONSULT PRN (23:08)
--- NOTE | 2021-01-28 23:10 | Pharmacy Report ---
Pharmacy Abx Dose Short Note - Date of Service January 28, 2021 - Assessment & Plan Assessment 80 year old M ordered empiric vancomycin and zosyn for possible pulmonary infection * BC x 2 and MRSA nasal swab pending Plan Vancomycin * Loading dose of 1500 mg IV (20 mg/kg) given in the ED at 2113 * Will order a random level for 3/25 AM to guide further due to severe renal impairment * Goal trough level: 15 mcg/mL Zosyn * 3.375 g IV load given in ED, then 3.375 g IV q12h via extended infusion for CrCl < 20 mL/min Pharmacy will continue to follow and will adjust dose/frequency as necessary. Thank you.
[2021-01-28 23:46] LABS: Appearance Urine Clear (Clear); Bacteria Urine Automated Negative (Negative); Bilirubin Urine Negative (Negative); Blood Urine Negative (Negative); Color Urine Yellow; Epithelial Cell Urine Auto 0-5 /lpf (0-5); Glucose Urine UA Negative (Negative); Ketones Urine Negative (Negative); Leukocyte Esterase Urine Negative (Negative); Nitrite Urine Negative (Negative); RBC Urine Automated 0-4 /hpf (0-4); Specific Gravity Urine 1.009 (1.000-1.030); Urobilinogen Urine Negative (Negative); WBC Urine Automated 0 /hpf (0-5); pH Urine 7.5 (4.5-7.5)
[2021-01-28] MEDS: TAMSULOSIN HCL 0.4 MG CAP PO SCH (23:51)
[2021-01-28] MEDS: FLUDROCORTISONE ACETATE 0.1 MG TAB PO SCH (23:51)
[2021-01-28] MEDS: TACROLIMUS 1 MG CAP PO SCH (23:51)
[2021-01-28] MEDS: DONEPEZIL HCL 10 MG TAB PO SCH (23:51)
[2021-01-28] MEDS: ursodioL 300 MG CAP PO SCH (23:51)
[2021-01-28] MEDS: AMITRIPTYLINE HCL 10 MG TAB PO SCH (23:51)
[2021-01-28] MEDS: METOPROLOL SUCC 50MG EXT REL TAB PO SCH (23:52)
[2021-01-28 23:53] LABS: Protein Urine 1+ (Negative)
[2021-01-29] MEDS ORDERED: CARBOHYDRATES FOR HYPOGLYCEMIA PO PRN (00:15)
[2021-01-29] MEDS ORDERED: GLUCOSE 40% GEL 15 GM TUBE PO PRN (00:15)
[2021-01-29] MEDS ORDERED: GLUCOSE 10 TABS/TUBE PO PRN (00:15)
[2021-01-29] MEDS ORDERED: GLUCAGON FOR INJ 1 MG VIAL IM PRN (00:15)
[2021-01-29] MEDS ORDERED: DEXTROSE 50% 50 ML SYRINGE IV PRN (00:15)
[2021-01-29 01:04] LABS: Partial Thromboplastin Ratio 1.1; Partial Thromboplastin Time 30.1 Seconds (21.0-31.0)
[2021-01-29] MEDS: HEPARIN SODIUM/DEXTROSE 25,000 UNITS/500 ML BAG IV SCH ×2 (01:22→20:02)
[2021-01-29] MEDS ORDERED: FUROSEMIDE 40 MG in SYRINGE 0 ML IV SCH (04:00)
[2021-01-29] MEDS: PIPERACILLIN/TAZOBACTAM 3.375 GM in DEXTROSE 5% 100 ML IV SCH ×2 (04:12→17:29)
[2021-01-29 07:27] LABS: Basophils # (auto) 0.01 K/uL (0-0.2); Basophils % (auto) 0.2 %; Eosinophils # (auto) 0.11 K/uL (0-0.5); Hematocrit (blood only) 31.7 % (42-52); Hemoglobin 10.4 g/dL (14.0-18.0); Immature Granulocytes # (auto) 0.02 K/uL (0.00-0.02); Immature Granulocytes % (auto) 0.4 %; Lymphocytes # (auto) 1.55 K/uL (1.2-3.4); Lymphocytes % (auto) 28.2 %; Mean Corpuscular Hemoglobin 29.6 pg (25-34); Mean Corpuscular Hgb Conc 32.8 g/dL (32-36); Mean Corpuscular Volume 90.3 fL (80-100); Mean Platelet Volume 10.9 fL (7.4-10.4); Monocytes % (auto) 5.5 %; Neutrophils % (auto) 63.7 %; Platelet Count 114 K/uL (130-400); RDW Coefficient of Variation 14.5 % (11.5-14.5); RDW Standard Deviation 47.7 fL (36.4-46.3); Red Blood Count 3.51 M/uL (4.7-6.1); White Blood Count 5.49 K/uL (4.8-10.8)
[2021-01-29 07:35] LABS: INR 1.1 (0.9-1.1); Prothrombin Time 11.1 Seconds (9.0-12.0)
[2021-01-29 07:45] LABS: Estimated Average Glucose 171 mg/dl; Hemoglobin A1C 7.6 % (4.5-5.6)
[2021-01-29] MEDS: TACROLIMUS 1 MG CAP PO SCH ×2 (07:55→20:02)
[2021-01-29] MEDS: BUDESONIDE EC 3 MG CAP PO SCH (07:55)
[2021-01-29] MEDS: ursodioL 300 MG CAP PO SCH ×2 (07:55→20:02)
[2021-01-29] MEDS: predniSONE 5 MG TAB PO SCH (07:55)
[2021-01-29] MEDS: CALCITRIOL 0.25 MCG CAPSULE PO SCH (07:56)
[2021-01-29] MEDS: METOPROLOL SUCC 50MG EXT REL TAB PO SCH ×2 (07:57→20:01)
[2021-01-29] MEDS: INSULIN ASPART 100 UNITS/ML 3 ML PEN SC SCH ×4 (08:01→20:39)
[2021-01-29 08:04] LABS: Partial Thromboplastin Ratio 2.3
--- NOTE | 2021-01-29 08:04 | Pulmonary Consultation ---
Date of Consultation January 29, 2021 Assessment & Plan (1) Dyspnea on minimal exertion: (2) Bilateral pleural effusion: CT chest 01/28/2021 personally reviewed: Bilateral pleural effusion more on the right side. No mediastinal adenopathy, mild pericardial effusion. --Bilateral pleural effusion BNP greater than 12,000 Creatinine 4.5 Influenza A/B negative, COVID-19 PCR negative Procalcitonin 1.03 The etiology is most likely fluid overload with underlying CKD Patient on apixaban last dose being on 01/28/2021. --History of liver transplant On tacrolimus and chronic 5 mg prednisone Plan: I will change Lasix to bumetanide 4 mg on a daily basis. Keep the patient negative balance Recommend strict in and out. Nephrology is on board I think patient will need dialysis in future. If the patient's pleural effusion do not improve with diuretics and he is still complaining of shortness of breath then will think about thoracentesis. Last apixaban dose was 01/28/2021. Thoracentesis will be safe to be done on 01/31/2021 which will be after 48 hours of the last dose. Patient's platelets are on the lower side. Please note the above document was generated using voice recognition software. It may contain grammatical, syntax or spelling errors.Any formal questions or concerns about the content, text or information contained within the body of this dictation should be directly addressed to the provider for clarification. (3) CKD (chronic kidney disease): Chronic kidney disease stage: stage 4 (severe) Qualified Code(s): N18.4 - Chronic kidney disease, stage 4 (severe) History of Present Illness Attending Physician: Terrence Puente MD History of Present Illness 80-year-old male past medical history of liver transplant in 1994 on tacrolimus and chronic prednisone, A. fib on apixaban, CKD stage IV-V presented to the hospital with complaints of exertional shortness of breath. Patient is hard to hear patient's was in the room who helped with getting the history. Patient is able to walk half a block before he has to stop and catch his breath. It is not associated with chest tightness or wheezing. It is huffing and puffing mostly. No chest pain, no diaphoresis at that time. His urine output has decreased significantly in the recent past. He was supposed to have mapping of his veins to have AV fistula placed Patient denies any fever or chills. No dysuria, no diarrhea. No recent travel history. No cough. Denies any hemoptysis. Social history: Approximately [id number] smoking history. Quit in the 1970s. No history of asthma. Allergies Allergy/AdvReac Type Severity Reaction Status Date / Time aspirin AdvReac Unknown high doses Verified 01/28/21 19:57 contrindicated d/t hx liver transplant ibuprofen AdvReac Unknown not to Verified 01/28/21 19:57 take due to transplant Home Medications Medication Instructions Recorded Confirmed Type calcium carbonate [Calcium 600] 600 mg PO BID 01/09/19 01/28/21 History prednisone 5 mg PO QAM 01/09/19 01/28/21 History ursodiol 300 mg PO BID 01/09/19 01/28/21 History [employer] 1 cap PO QAM 07/10/19 01/28/21 History lidocaine 5 % topical patch 1 patch TOP DAILY PRN 08/10/19 01/28/21 History polyethylene glycol 3350 17 gram 17 gm PO DAILY PRN 08/10/19 01/28/21 History oral powder packet aspirin 81 mg PO QAM 03/17/20 01/28/21 History hydrocortisone 2.5 % topical cream 1 appln [place] DAILY PRN #28.35 gm 03/18/20 01/28/21 Rx with perineal applicator Prolia 60 mg/mL subcutaneous 60 mg SUBCUT Q6MO #1 ml NS 07/22/20 01/28/21 Rx syringe apixaban 2.5 mg tablet 2.5 mg PO BID #60 tab 08/21/20 01/28/21 Rx menthol 0.44 %-zinc oxide 20.6 % 1 applic TOPICAL QID PRN #113 g 09/02/20 01/28/21 Rx topical ointment OneTouch Delica Lancets 33 gauge #300 ea NS 09/12/20 01/16/21 Rx OneTouch Verio test strips #300 ea NS 09/12/20 01/16/21 Rx meclizine 25 mg tablet 25 mg PO DAILY PRN #30 tab 10/09/20 01/28/21 Rx venlafaxine 37.5 mg 37.5 mg PO DAILY@1700 #30 cap 10/09/20 01/28/21 Rx capsule,extended release 24 hr calcitriol 0.5 mcg capsule 0.5 mcg PO QAM 90 Days #90 cap 10/10/20 01/28/21 Rx Tresiba FlexTouch U-100 11 unit SUBCUT QAM 11/21/20 01/28/21 History donepezil 10 mg PO HS 11/21/20 01/28/21 History dutasteride 0.5 mg PO QDL 11/21/20 01/28/21 History fludrocortisone 0.1 mg PO QPM 11/21/20 01/28/21 History tacrolimus [Prograf] 2 mg PO BID 11/21/20 01/28/21 History tamsulosin [Flomax] 0.4 mg PO QPM 11/21/20 01/28/21 History budesonide 3 mg 9 mg PO DAILY #90 ea 11/28/20 01/28/21 Rx capsule,delayed,extended release metoprolol succinate 50 mg 100 mg PO BID #120 tab 01/01/21 01/28/21 Rx tablet,extended release 24 hr cyanocobalamin (vitamin B-12) 1,000 mcg PO DAILY #30 cap 01/09/21 01/28/21 Rx 1,000 mcg capsule insulin aspart U-100 100 unit/mL See Rx Instructions SUBCUT .COMPLEX 01/09/21 01/28/21 History (3 mL) subcutaneous pen amitriptyline 10 mg tablet 10 mg PO .qhs #30 tab 01/16/21 01/28/21 Rx furosemide 20 mg tablet 40 mg PO QAM #90 tab 01/16/21 01/28/21 Rx acetaminophen 500 mg PO .WITH LUNCH PRN 01/28/21 01/28/21 History acetaminophen 650 mg PO BID PRN 01/28/21 01/28/21 History gabapentin 100 mg PO TID PRN 01/28/21 01/28/21 History Patient History Medical History (Updated 01/29/21 @ 19:35 by Tip Hernandez MD) Atrial fibrillation dx 08/2020 - on Eliquis -- follows with Dr. Madrigal Bright red rectal bleeding Cancer SKIN CANCER-BASAL CELL/SQUAMOUS CHF (congestive heart failure) CKD (chronic kidney disease) Stage 4 - Follows with Dr. Rider Compression fracture Depression, major, recurrent, in remission Diarrhea Diverticular disease DM type 2 (diabetes mellitus, type 2) IDDM Hypertension Pancreatitis HX Pericardial effusion Pericardial effusion chronic Sclerosing cholangitis S/P liver transplant 1994 Secondary hyperparathyroidism of renal origin Sleep apnea BiPAP Stage 5 chronic kidney disease not on chronic dialysis Vitamin D deficiency Surgical History Fusion of spine LUMBAR H/O exploratory laparotomy History of appendectomy History of cholecystectomy History of colonoscopy History of esophagogastroduodenoscopy (EGD) History of herniorrhaphy X 2 History of liver biopsy History of oral surgery Posts implanted in mandible for bottom denture History of tooth extraction Transplant LIVER 1994 [place] ([facility]) Family History Father Family history of diabetes mellitus Myocardial infarction Heart failure Mother Dementia Denies family history of Ovarian cancer Prostate cancer Breast cancer Colorectal cancer Social History Smoking Status: Former smoker Tobacco Type: Cigarettes Cigarettes Per Day: QUIT 1971; Second Hand Exposure: No; Hx Alcohol Use: No Hx Substance Use: No Preferred Language: Cymro Communication Ability: Effective Visual Impairment: Limited Tomato Pulper Operator Required: No Beliefs That Will Affect Care: None marital status: Current Living Situation: Spouse current occupational status: retired Feels Safe at Home: Yes Dental Care, Regularly: Yes Seatbelt Use: always Sunscreen Use: Yes Assistive Devices: Denture - Upper, Denture - Lower, Glasses and Hearing Aid - Bilateral Review of Systems Review of Systems: All systems reviewed & are unremarkable except as noted in HPI & below Physical Exam Physical Exam: Constitutional: No acute distress HEENT: EOMI, PERRLA, hard to hear Respiratory system: Decreased air entry bilaterally, no wheeze, rhonchi, pos itive crackles bilateral lower lobes CVS: S1-S2 positive, no murmurs or gallops, irregular rhythm Abdomen: Soft, nontender, nondistended, positive bowel sounds x4 Extremities: +2 pulses bilaterally radialis/ dorsalis pedis, no cyanosis, +1 edema right lower extremity, ecchymosis appreciated bilaterally on the dorsal surfaces Neuro: Awake alert oriented x3 Psych: Normal mood and affect G/U: No Petersen Skin: no rashes, warm and dry Lymphatic: no cervical or axillary lymphadenopathy Results & Data Results & Data ([facility]) Vital Signs (Past 12 Hours) Vital Signs Temp Pulse Pulse Resp BP BP Pulse Ox 01/29/21 07:52 36.6 C 92 H 18 146/87 H 94 01/29/21 07:26 85 01/29/21 02:53 36.5 C 116 H 22 167/94 H 98 01/29/21 01:04 16 95 01/28/21 23:00 36.5 C 59 L 18 164/89 H 96 01/28/21 22:00 86 19 140/94 96 01/28/21 20:01 88 19 151/92 H 96 01/29/21 06:46 01/29/21 12:14 PG Care Time/CCT Total # of Minutes Spent Total Time Spent with Patient: Total time spent is greater than 50% in coordination of care (as documented) at patient's floor/unit and/or counseling patient: Coding Level of Care Code 91006 Initial Inpt Care Lvl 3 Diagnoses Dyspnea on minimal exertion R06.00 Bilateral pleural effusion J90 CKD (chronic kidney disease) N18.4 Chronic kidney disease stage: stage 4 (severe)
[2021-01-29 08:08] LABS: BUN Creatinine Ratio 17.7 (10-20); Calcium 7.1 mg/dl (8.5-10.1); Creatinine Clr Calc Pharmacy 13.3 ml/min; Est GFR (African American) 13.1; Est GFR (Non-African American) 11.3
[2021-01-29 08:12] LABS: Partial Thromboplastin Time 60.5 Seconds (21.0-31.0)
[2021-01-29] MEDS: BUMETANIDE 4 MG in SYRINGE 0 ML IV SCH ×2 (08:46→17:20)
[2021-01-29] MEDS ORDERED: INSULIN GLARGINE SOLOSTAR 100 UNITS/ML 3 ML PEN SC SCH (09:00)
[2021-01-29 09:50] LABS: Potassium 3.3 mmol/L (3.5-5.1)
--- NOTE | 2021-01-29 10:02 | Pharmacy Report ---
Pharmacy Glycemic Short Note 2 - Date of Service January 29, 2021 - Glycemic Short BSG Results (Last 24 hours): 01/28/21 01/28/21 01/29/21 16:39 23:47 06:46 Glucose 151 H 164 H POC Glucose 78 01/29/21 07:47 Glucose POC Glucose 155 H OUTPATIENT ANTIDIABETIC REGIMEN: * Tresiba 11 units SC AM * Novolog 7-9 units SC breakfast, 5-7 units SC lunch, 3-4 units dinner * HbA1c = 7.6% (01/29/21) ASSESSMENT: * 80 yo M admitted secondary to shortness of breath. Pharmacy has been consulted for assistance with inpatient glycemic management. * Patient is on chronic steroids at home which we will continue here * Prednisone 5 mg PO AM * Fludrocortisone 0.1 mg PO PM * Will start with a 20% reduction in home Lantus dose * Will start with Novolog based on weight/stress of 2 PLAN FOR INPATIENT GLYCEMIC CONTROL: * Basal insulin * Lantus 9 units SQ AM * Bolus insulin * NovoLog per scale ACHS or Q6hrs while NPO * Goal Range: Low 110 mg/dL - High 140 mg/dL * Correction Factor: 30 mg/dL/unit * Nutritional / Prandial insulin per carb ratio of 1 unit per 10 grams CHO consumed PLAN FOR DISCHARGE: * HbA1c is 7.6% from this admission which has increased from 7.1% in August 2020. This is still below his goal HbA1c of 8%. * Continue with outpatient regimen as long as patient is not experiencing any hypoglycemia at home. Report any persistent highs/lows to outpatient provider.
--- NOTE | 2021-01-29 10:06 | Pharmacy Report ---
Pharmacy Abx Dose Short Note - Date of Service January 29, 2021 - Assessment & Plan Assessment 80 year old M receiving Vancomycin + Zosyn for treatment of possible pneumonia * Patient's SCr improved from 4.79 mg/dL to 4.57 mg/dL. Nephrology is consulted - will follow their recommendations * Given current kidney function, would use concomitant vancomycin + zosyn for shortest possible duration * Pulmonology consulted - will follow their recommendations * Patient is afebrile. No leukocytosis. Procalcitonin was negative at 0.08. * Blood cultures pending. Does have a history of MRSA (Vanc CONSUELO = 2) which grew in abdominal wall culture in 2018. MRSA swab is positive. Plan Vancomycin * Random level of 20.1 mcg/mL is therapeutic * Do not expect patient to clear much vancomycin given his renal function * Will order another random level for tomorrow morning with AM labs Zosyn * Continue 3.375 g IV every 12 hours Pharmacy will continue to follow and will adjust dose/frequency as necessary. Thank you.
--- NOTE | 2021-01-29 10:12 | Hospitalist Progress Note ---
Date of Service January 29, 2021 Assessment & Plan (1) Bilateral pleural effusion: 80 y/o male w/ hx of CKD4, AFib on Eliquis, and hx of liver transplant (for PSC) who presents w/ 2 months of progressively worsening GUERRIER and fatigue. acute dyspnea, in setting of new moderate bilateral pleural effusions - s/p 40 mg IV Lasix in ED. home regimen is 40 mg PO Lasix; Bumex 4 mg BID during this admission. - good symptom improvement s/p above and nebs - 01/29 echo: EF 55-60. Normal LV function. - blood cultures pending - pulmonology consulted; diagnostic/therapeutic thoracentesis planned for 01/31 pleural effusion - more likely transudative than exudative per hx. pleural fluid labs after thoracentesis - will attempt diuresis afib on chronic anticoagulation - home apixaban 2.5 mg BID held this admission. heparin drip until early AM? of 01/31 thoracentesis - home ASA held - continue rate control w/ Toprol, renal dose adjustment as needed pericardial effusion - per 01/29 echo, small-moderate, stable chronic kidney disease stage 4-5 - Cr has been mid-upper 4s in past several months. 01/29 4.69 - nephro consulted. recs: diuresis as above. L arm precaution for future AV fistula status post liver transplant - liver enzymes normal on admission - Continue home Prograf, prednisone, Ursodiol, - removed prn tylenol from orders compression fracture - at L1 per CT - may have contributed to some of patient's chest stiffness symptom, though he was stiff diffusely - considered nasal calcitonin for analgesia, but will defer at this time because pain is tolerable. would also need to reconfirm no contraindications to liver/kidney. memory impairment: - at baseline, per - continue donepezil 10 mg - Avoid sedating agents and benzo as possible - fall risk protocol Type 2 diabetes mellitus, on insulin - A1C 7.6 01/29 - SSI Hypothyroidism: - stable w/ normal T4 Obstructive sleep apnea: - using home cpap FEN/GI: DM2 diet. no mIVF. code: full ppx: heparin drip dispo: med surg w/ tele (2) Stage 5 chronic kidney disease not on chronic dialysis: (3) Acute dyspnea: (4) Obstructive sleep apnea: (5) PAF (paroxysmal atrial fibrillation): (6) Type 2 diabetes mellitus: (7) Compression fracture: Admission and Anticipated Discharge Date Admission Date: January 28, 2021 Supervising Physician Co-Signing Physician Notes Attending attestation I also saw the patient with the resident physician and confirmed reeves portions of the history and physical examination. Agree with the impression and plan as noted in the resident documentation. 80-year-old male admitted yesterday with acute dyspnea in the setting of new bilateral pleural effusions. He was medicated with 40 mg of IV Lasix in the emergency department with some improvement in his dyspnea. His apixaban was held in case a thoracentesis was needed. He has a complicated medical history which includes a liver transplant in 1994 secondary to PSC; he also has history of atrial fibrillation and a chronic pericardial effusion, chronic kidney disease, stage IV with hyperkalemia, and some degree of dementia presumably on the basis of small vessel ischemic disease (although he scored a 27/30 on a Mini-Mental status exam dated 12/30/2020). This morning on rounds, he denied dyspnea but states that his abdominal wall and hands felt " stiff." He had a hard time articulating his symptoms other than just " not feeling well." Exam 148/86, 96, 20, 36.9, 92% He is awake alert and oriented. Cardiovascular is irregularly irregular Lungs decreased in the bases No extremity edema is appreciated Laboratory White blood cell count 5.49, hemoglobin 10.4, platelet count 114. Sodium 140, potassium 3.6, BUN 90, creatinine 4.69. BNP 12,771. Micro Blood cultures x2 are pending. Imaging Echocardiogram from this morning shows normal left ventricular function, moderat e concentric left ventricular hypertrophy, mild to moderate aortic stenosis. Also noted is a small to moderate sized pericardial effusion though this is unchanged from prior examinations. Chest x-ray from admission shows mild pulmonary vascular congestion with bilateral pleural effusions, right greater than left; bibasilar pulmonary airspace opacities, atelectasis versus pneumonia. A CT chest without contrast confirms bilateral pleural effusions and pericardial effusion; dependent lower lobe pulmonary airspace opacities likely representing compressive atelectasis. Note is also made of a acute/subacute superior endplate L1 compression fracture. Mammography/breast ultrasound demonstrates bilateral gynecomastia, right greater than left breast (looks to have been ordered as an outpatient and completed 3/24) Impression Bilateral pleural effusion, suspect secondary to hypovolemia with underlying CKD Chronic kidney disease, stage V, not on chronic dialysis Appreciate pulmonary and nephrology consultation Continue diuresis; monitor electrolytes Thoracentesis if required (apixaban on hold) Chronic atrial fibrillation, on systemic anticoagulation Apixaban on hold and now on heparin drip Acute/subacute L1 compression fracture This may explain his " tightness" in his abdominal region, as compression fractures are often present with a circumferential pain. Will need to correlate with physical exam tomorrow to see if he has focal midline pain at L1 Chronic pericardial effusion History of chronic hyperkalemia Subjective Patient's breathing still not at baseline, but he is feeling better than yesterday. He has had progressively worsened SOB/GUERRIER and fatigue x 2 months. He had some stiffness sensation when breathing. Denies other complaints. PM update: per nursing, patient's breathing continued to improve s/p diuresis w/ bumex. Patient tolerated sitting up and eating dinner. Review of Systems Review of Systems: Constitutional: Denies fever, chills ENT: + sore throat Cardiovascular: Denies chest pain, palpitations Respiratory: Denies shortness of breath Gastrointestinal: Denies abdominal pain, nausea, vomiting Genitourinary: Denies dysuria Msk: + general "stiffness" Neurological: Denies headache Physical Exam Physical Exam: General: Grossly A&O. NAD. Cooperative. HEENT: Atraumatic, normocephalic. Pulm: CTAB. Decreased breath sounds at left lower lobe posteriorly. No respiratory distress. Cardiac: RRR, -mrg. Abdominal: Per attending exam, Mild discomfort diffusely on palpation. Results & Data Results & Data ([facility]) Vital Signs (Past 12 Hours) Vital Signs Temp Pulse Pulse Resp BP Pulse Ox 01/29/21 07:52 36.6 C 92 H 18 146/87 H 94 01/29/21 07:26 85 01/29/21 02:53 36.5 C 116 H 22 167/94 H 98 01/29/21 01:04 16 95 01/28/21 23:00 36.5 C 59 L 18 164/89 H 96 Resident Activity Tracking Resident Involvement: Resident Care Provided Care Provided: Adult [facility] Medicine (1) Type 2 diabetes mellitus Chronic kidney disease stage: stage 4 (severe) Diabetes mellitus complication detail: with chronic kidney disease Diabetes mellitus complication status: with kidney complications Diabetes mellitus long term care phlebotomist insulin use: with long term care phlebotomist use Qualified Code(s): E11.22 - Type 2 diabetes mellitus with diabetic chronic kidney disease; N18.4 - Chronic kidney disease, stage 4 (severe); Z79.4 - [facility] (current) use of insulin
--- NOTE | 2021-01-29 10:41 | Nephrology Consultation ---
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 He was referred for AV fistula placement with plan for in center hemodialysis in future. Admitted with progressive shortness of breath with worsening bilateral pleural effusion and mild to moderate pericardial effusion. --continue on Bumex 4 mg IV b.i.d., monitor urine output over next 24 hour, respiratory status and evaluate for any improvement in pleural effusion. If no further improvement in respiratory status, probably he will need thoracentesis on 01/31/2021 while apixaban and Aspirin is being held. --monitor electrolyte and volume status, no indication for dialysis at this time. --continued tacrolimus 2 mg q.12 hours and prednisone 5 mg --left arm nephrology precaution for future AV fistula placement, Lawrence has appointment with Dr. Otero in February Will follow Thank you for allowing me to participate in your patient's care. It was a pleasure to see Lawrence (2) Bilateral pleural effusion: (3) Liver transplant status: (4) Secondary hyperparathyroidism of renal origin: History of Present Illness Reason for Consultation: Stage 5 CKD, volume overload Attending Physician: Wilberto Mackenzie, History of Present Illness Mr. 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 Nephrology consult was requested to manage advanced CKD, volume overload. EMR records were reviewed in detail during visit. Lawrence presented to ER on 01/28/21 with worsening shortness of breath at rest and exertion for last few months which progrssingly worsened to rosalia point that he was having difficulty sleeping. He has been on Lasix 40 mg in am and 2 mp in afternoon and reports adequate response with decent UO. His weight and chronic lower extremity edema has been stable. He denied fever, new cough, nausea, vomiting, diarrhea or urinary symptoms. On arrival he was mildly dyspneic but no acute distress, afebrile with O2 saturation 97% on RA . WBC normal, Hb low but stable. Creatinine 4.7, close to b/l, no acidosis or hyperkalemia. Troponin negative/undetectable. BNP 12K similar to prior. COVID-19, influenza and RSV PCR's were negative. EKG with A fib, no ST-T changes. Chest x-ray and CT showed vascular congestion with b/l pleural effusions right greater than left which have progressed since October. He was seen by Pulmonary and Diuretics was changed to Bumex 4 mg IV BID, Thoracentesis can not be considered due to high risk of bleeding until at least 48 h after last dose of Apixaban which is now on hold. Lawrence has stage 4/5 CKD, b/l cr lately has been around 4.5, attributed to microvascular disease, CNI nephropathy, hypertension or diabetic nephropathy. Has moderate degree Proteinuria at approximately 1 g/g. He has appointment with Dr. Otero in February for AVF placement with plan for in center HD in future. 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 He is maintained on Prograf with associated nephropathy and hyperkalemia, dose was reduced to lowest tolerable limit based on prior conversations with his transplant team. Hyperkalemia has been managed with Florinef. RAAS blockade was stopped due to hyperkalemia. Has T2DM, HTN, osteoporosis as well as sPTH, BPH and elevated PSA, and osteoarthritis. Has chronic back pain, s/p decompression of the lumbar spine by Dr. Hewitt in 2018. On Calcitriol for sHPT. Serum calcium has been acceptable. Overall he ahs been clinically declining over last few months. He reports adequate po intake at home. UO has been decent. Currently he feels his breathing slightly better. Allergies Allergy/AdvReac Type Severity Reaction Status Date / Time aspirin AdvReac Unknown high doses Verified 01/28/21 19:57 contrindicated d/t hx liver transplant ibuprofen AdvReac Unknown not to Verified 01/28/21 19:57 take due to transplant Home Medications Medication Instructions Recorded Confirmed Type calcium carbonate [Calcium 600] 600 mg PO BID 01/09/19 01/28/21 History prednisone 5 mg PO QAM 01/09/19 01/28/21 History ursodiol 300 mg PO BID 01/09/19 01/28/21 History Odotech 1 cap PO QAM 07/10/19 01/28/21 History lidocaine 5 % topical patch 1 patch TOP DAILY PRN 08/10/19 01/28/21 History polyethylene glycol 3350 17 gram 17 gm PO DAILY PRN 08/10/19 01/28/21 History oral powder packet aspirin 81 mg PO QAM 03/17/20 01/28/21 History hydrocortisone 2.5 % topical cream 1 appln ID DAILY PRN #28.35 gm 03/18/20 01/28/21 Rx with perineal applicator Prolia 60 mg/mL subcutaneous 60 mg SUBCUT Q6MO #1 ml NS 07/22/20 01/28/21 Rx syringe apixaban 2.5 mg tablet 2.5 mg PO BID #60 tab 08/21/20 01/28/21 Rx menthol 0.44 %-zinc oxide 20.6 % 1 applic TOPICAL QID PRN #113 g 09/02/20 01/28/21 Rx topical ointment OneTouch Delica Lancets 33 gauge #300 ea NS 09/12/20 01/16/21 Rx OneTouch Verio test strips #300 ea NS 09/12/20 01/16/21 Rx meclizine 25 mg tablet 25 mg PO DAILY PRN #30 tab 10/09/20 01/28/21 Rx venlafaxine 37.5 mg 37.5 mg PO DAILY@1700 #30 cap 10/09/20 01/28/21 Rx capsule,extended release 24 hr calcitriol 0.5 mcg capsule 0.5 mcg PO QAM 90 Days #90 cap 10/10/20 01/28/21 Rx Tresiba FlexTouch U-100 11 unit SUBCUT QAM 11/21/20 01/28/21 History donepezil 10 mg PO HS 11/21/20 01/28/21 History dutasteride 0.5 mg PO QDL 11/21/20 01/28/21 History fludrocortisone 0.1 mg PO QPM 11/21/20 01/28/21 History tacrolimus [Prograf] 2 mg PO BID 11/21/20 01/28/21 History tamsulosin [Flomax] 0.4 mg PO QPM 11/21/20 01/28/21 History budesonide 3 mg 9 mg PO DAILY #90 ea 11/28/20 01/28/21 Rx capsule,delayed,extended release metoprolol succinate 50 mg 100 mg PO BID #120 tab 01/01/21 01/28/21 Rx tablet,extended release 24 hr cyanocobalamin (vitamin B-12) 1,000 mcg PO DAILY #30 cap 01/09/21 01/28/21 Rx 1,000 mcg capsule insulin aspart U-100 100 unit/mL See Rx Instructions SUBCUT .COMPLEX 01/09/21 01/28/21 History (3 mL) subcutaneous pen amitriptyline 10 mg tablet 10 mg PO .qhs #30 tab 01/16/21 01/28/21 Rx furosemide 20 mg tablet 40 mg PO QAM #90 tab 01/16/21 01/28/21 Rx acetaminophen 500 mg PO .WITH LUNCH PRN 01/28/21 01/28/21 History acetaminophen 650 mg PO BID PRN 01/28/21 01/28/21 History gabapentin 100 mg PO TID PRN 01/28/21 01/28/21 History Patient History Medical History (Updated 01/29/21 @ 11:05 by Preethi Gasca MD) Atrial fibrillation dx 08/2020 - on Eliquis -- follows with Dr. Madrigal Bright red rectal bleeding Cancer SKIN CANCER-BASAL CELL/SQUAMOUS CHF (congestive heart failure) CKD (chronic kidney disease) Stage 4 - Follows with Dr. Rider Depression, major, recurrent, in remission Diarrhea Diverticular disease DM type 2 (diabetes mellitus, type 2) IDDM Hypertension Pancreatitis HX Pericardial effusion Pericardial effusion chronic Sclerosing cholangitis S/P liver transplant 1994 Secondary hyperparathyroidism of renal origin Sleep apnea BiPAP Stage 5 chronic kidney disease not on chronic dialysis Vitamin D deficiency Surgical History Fusion of spine LUMBAR H/O exploratory laparotomy History of appendectomy History of cholecystectomy History of colonoscopy History of esophagogastroduodenoscopy (EGD) History of herniorrhaphy X 2 History of liver biopsy History of oral surgery Posts implanted in mandible for bottom denture History of tooth extraction Transplant LIVER 1994 IN [place] ([facility]) Family History Father Family history of diabetes mellitus Myocardial infarction Heart failure Mother Dementia Denies family history of Ovarian cancer Prostate cancer Breast cancer Colorectal cancer Social History Smoking Status: Former smoker Tobacco Type: Cigarettes Cigarettes Per Day: QUIT 1971; Second Hand Exposure: No; Hx Alcohol Use: No Hx Substance Use: No Preferred Language: [place] Islander Communication Ability: Effective Visual Impairment: Limited Stretch Box Tender Required: No Beliefs That Will Affect Care: None marital status: Current Living Situation: Spouse current occupational status: retired Feels Safe at Home: Yes Dental Care, Regularly: Yes Seatbelt Use: always Sunscreen Use: Yes Assistive Devices: Glasses Review of Systems Review of Systems: All systems reviewed & are unremarkable except as noted in Subjective Physical Exam Constitutional: + ill appearing; no acute distress Eyes: + anicteric sclerae; no conjunctival abnormality ENMT: Ears: + hearing impairment Neck: normal visual inspection Respiratory: normal respiratory effort; no cough Auscultation: + crackles Cardiovascular: Rate/Rhythm: regular rate and regular rhythm Heart Sounds: normal S1 and normal S2 Extremities: + edema Gastrointestinal (Abdomen): Inspection/Auscultation: normal bowel sounds Percussion/Palpation: abdomen soft; abdomen nontender, no guarding and abdomen not rigid Musculoskeletal: Head/Neck/Chest: head atraumatic Extremities: extremities normal to inspection Skin: no rashes, warm and dry Neurologic: no focal motor deficits and not confused Psychiatric: A+Ox3, euthymic affect Results & Data ([facility]) Vital Signs (Past 12 Hours) Vital Signs Temp Pulse Pulse Resp BP Pulse Ox 01/29/21 07:52 36.6 C 92 H 18 146/87 H 94 01/29/21 07:26 85 01/29/21 02:53 36.5 C 116 H 22 167/94 H 98 01/29/21 01:04 16 95 01/28/21 23:00 36.5 C 59 L 18 164/89 H 96 PG Care Time/CCT Total # of Minutes Spent Total Time Spent with Patient: Total time spent is greater than 50% in coordination of care (as documented) at patient's floor/unit and/or counseling patient: Coding Level of Care Code 55037 Initial Inpt Care Lvl 3 Diagnoses Stage 5 chronic kidney disease not on chronic dialysis N18.5 Bilateral pleural effusion J90 Liver transplant status Z94.4 Secondary hyperparathyroidism of renal origin N25.81
[2021-01-29] MEDS ORDERED: ONDANSETRON INJ 2 MG/ML 2 ML VIAL ONE (12:13)
[2021-01-29] MEDS ORDERED: ONDANSETRON INJ 2 MG/ML 2 ML VIAL IV ONE (12:25)
[2021-01-29 13:33] LABS: BUN Creatinine Ratio 19.5 (10-20); Calcium 7.2 mg/dl (8.5-10.1); Est GFR (African American) 12.7; Est GFR (Non-African American) 10.9; Potassium 3.6 mmol/L (3.5-5.1)
[2021-01-29] MEDS: LIDOCAINE 5% 1 PATCH TD PRN (13:38)
--- NOTE | 2021-01-29 14:19 | XCELERA ---
[id number]
--- NOTE | 2021-01-29 16:43 | Electrocardiogram Report ---
Test Reason : Blood Pressure : / mmHG Vent. Rate : 095 BPM Atrial Rate : 153 BPM P-R Int : 000 ms QRS Dur : 092 ms QT Int : 386 ms P-R-T Axes : 000 021 168 degrees QTc Int : 485 ms Atrial fibrillation Nonspecific ST and T wave abnormality Abnormal ECG When compared with ECG of 20-SEP-2020 06:21, Atrial fibrillation has replaced Sinus rhythm Vent. rate has increased BY 36 BPM Confirmed by Jared Ponce ([id number]) on 01/29/2021 4:43:14 PM Referred By: Jhonny Cobos Confirmed By:Ronni Ponce
[2021-01-29] MEDS: VENLAFAXINE HCL XR 37.5 MG CAPXR PO SCH (17:20)
[2021-01-29] MEDS ORDERED: CALCITONIN SALMON NA 200 IU/AC 3.7 ML BTL SCH (17:30)
[2021-01-29] MEDS: FLUDROCORTISONE ACETATE 0.1 MG TAB PO SCH (20:01)
[2021-01-29] MEDS: TAMSULOSIN HCL 0.4 MG CAP PO SCH (20:02)
[2021-01-29] MEDS: AMITRIPTYLINE HCL 10 MG TAB PO SCH (20:02)
[2021-01-29] MEDS: DONEPEZIL HCL 10 MG TAB PO SCH (20:02)
[2021-01-30] MEDS ORDERED: MELATONIN 3 MG TAB PO PRN (01:19)
[2021-01-30] MEDS ORDERED: MELATONIN 3 MG TAB PO ONE (01:32)
[2021-01-30] MEDS: PIPERACILLIN/TAZOBACTAM 3.375 GM in DEXTROSE 5% 100 ML IV SCH (05:15)
--- NOTE | 2021-01-30 05:36 | Billing Data ---
Date of Service January 30, 2021 Coding Level of Care Code 38369 Initial Inpt Care Lvl 3
--- NOTE | 2021-01-30 07:18 | Hospitalist Progress Note ---
Date of Service January 30, 2021 Assessment & Plan (1) Bilateral pleural effusion: 80 y/o male w/ hx of CKD4-5, AFib on Eliquis, and hx of liver transplant (for PSC) who presented w/ 2 months of progressively worsening GUERRIER and fatigue. acute dyspnea, in setting of new moderate bilateral pleural effusions - s/p 40 mg IV Lasix in ED. home regimen is 40 mg PO Lasix; Bumex 4 mg BID during this admission. - good symptom improvement s/p above and nebs - 01/29 echo: EF 55-60. Normal LV function. - blood cultures pending - pulmonology consulted; diagnostic/therapeutic thoracentesis planned for 01/31 - daily Is/Os and weights. ordered external urinary catheter on 01/30 for more accurate measurement pleural effusion - more likely transudative than exudative per hx. pleural fluid labs after thoracentesis - will attempt diuresis. 4 mg BID IV bumex changed to 2 mg BID PO bumex on 01/30 per nephrology given creatinine bump and weight on 01/28 (74kg) to 01/29 (72.9kg) r/o of pneumonia - 01/30 cxr: Unchanged right greater than left pleural effusions with bibasilar consolidation. - per cxr above and ct at admission, cannot exclude infectious process. given patient's immunosuppressed state and + MRSA nasal swab (01/28), will continue MRSA coverage. changed from vanc/zosyn to vanc/cefepime because of kidney function - no leukocytosis infiltrated IV site at RUE 01/30 - removed both RUE peripheral IV sites - established peripheral IV access at BLE near ankles - preserve access of LUE chronically, RUE temporarily afib on chronic anticoagulation - home apixaban 2.5 mg BID held this admission. - home ASA held - continue rate control w/ Toprol, renal dose adjustment as needed - 01/31 will hold heparin drip at 0600 pericardial effusion - per 01/29 echo, small-moderate, stable chronic kidney disease stage 4-5 - Cr has been mid-upper 4s in past several months. 01/29 4.69. 01/30 4.95. - egfr this admission hovering between 10 and 11. 01/29->01/02 egfr 10.9->10.2, not drastic decrease - nephro consulted. recs: diuresis as above. L arm precaution for future AV fistula - 01/30 added low sodium (<2g) to diet order - hypocalcemic 7.4 corrected. will avoid repletion at this time given severe ckd. status post liver transplant - liver enzymes normal on admission - Continue home Prograf, prednisone, Ursodiol, - removed prn tylenol from orders compression fracture - at L1 per CT - may have contributed to some of patient's chest stiffness symptom, though he was stiff diffusely - considered nasal calcitonin for analgesia, but will defer at this time because pain is tolerable. memory impairment: - at baseline, per - continue donepezil 10 mg - Avoid sedating agents and benzos as possible - fall risk protocol Type 2 diabetes mellitus, on insulin - A1C 7.6 01/29 - Lantus 11u qam this admission w/ SSI. management per pharmacy consult. goal 110-140. CF 25. 1:8 carb ratio. - SSI, pharmacy consulted. Hypothyroidism: - stable w/ normal T4 Obstructive sleep apnea: - using home cpap FEN/GI: DM2 and low Na diet. no mIVF. code: full ppx: heparin drip dispo: med surg w/ tele. ordered PT/OT evals. (2) Stage 5 chronic kidney disease not on chronic dialysis: (3) Acute dyspnea: (4) Obstructive sleep apnea: (5) PAF (paroxysmal atrial fibrillation): (6) Type 2 diabetes mellitus: (7) Compression fracture: (8) IV infiltration: Admission and Anticipated Discharge Date Admission Date: January 28, 2021 Supervising Physician Co-Signing Physician Notes Patient seend and examined with PGY-1 Dr. Hernandez. Agree with history, exam findings, assessment and plan of care as outlined. 80 year old male with history of CKD stage 4, Afib (AC with Eliquis), and liver transplant for PSC admitted with progressive dyspnea on exertion and fatigue. Overnight, lost IV accessIV infiltrated. IV replaced by IV team. 1. Acute dyspnea with new bilateral pleural effusion. Started 4mg bumex BID, but since he has diuresed well, can decrease to 2mg BID. At home, takes 40mg PO Lasix. TTE with preserved EF of 55-60% and normal LV function. Repeat CXR today is unchanged. Plans for therapeutic and diagnostic thoracentesis on 01/31 with pulm. Appreciate pulm recommendations and nephrology recommendations 2. Pleural effusion. See above. 3. ?Pneumonia but unable to rule out definitively given concomitant pleural effusions. Given immune suppressed status, empirically treating for bacterial pneumonia. Restart vanc for MRSA coverage (had a positive MRSA nasal swab) and switch zosyn to cefepime. 4. Afib. Rate controlled. Holding apixaban in anticipation of thoracentesis. On heparin gtt. Continue home metoprolol. 5. Pericardial effusion. Small to moderate but stable. 6. CKD. No blood draws or blood pressures on left armpossible site for kristen davis. Appreciate nephrology recommendations. 7. DM. checking A1C. Glycemic consult. 8. Cognitive impairment. At baseline. Continue home donepezil. High risk for delirium. 9. Acute/subacute L1 compression fracture. Pain is not bothersome at this time. 10. Hx of liver transplant. Continue home prograf, pred, and ursodiol. Subjective At AM eval, patient stated that his breathing felt better. His back pain was minimal. At PM rounds, patient stated that he was slightly winded. Review of Systems Review of Systems: Constitutional: Denies fever, chills Cardiovascular: Denies chest pain Respiratory: See HPI Gastrointestinal: Denies abdominal pain, nausea, vomiting, constipation, diarrhea Genitourinary: Denies dysuria Musculoskeletal: Denies weakness, muscle aches/pain, joint aches/pain Neurological: Denies headache, numbness, tingling Physical Exam Physical Exam: General: Grossly A&O. NAD. Cooperative. HEENT: Atraumatic, normocephalic. EOMI Pulm: CTAB. slightly quieter at bases but decent air movement compared to yesterday. Cardiac: RRR, -mrg. 2+ BLE. Abdominal: Nontender, nondistended, soft. Integumentary: Large 3 inch diameter area of eccyhosis at RUE near antecubital fossa. Results & Data Results & Data ([facility]) Vital Signs (Past 12 Hours) Vital Signs Temp Pulse Pulse Resp BP Pulse Ox 01/30/21 07:00 52 L 01/30/21 04:08 36.8 C 69 20 175/93 H 92 01/30/21 00:00 77 01/29/21 22:38 36.4 C L 78 20 180/91 H 95 Resident Activity Tracking Resident Involvement: Resident Care Provided Care Provided: [facility] (1) Type 2 diabetes mellitus Chronic kidney disease stage: stage 4 (severe) Diabetes mellitus complication detail: with chronic kidney disease Diabetes mellitus complication status: with kidney complications Diabetes mellitus lobsterman insulin use: with snf use Qualified Code(s): E11.22 - Type 2 diabetes mellitus with diabetic chronic kidney disease; N18.4 - Chronic kidney disease, stage 4 (severe); Z79.4 - skilled nursing (current) use of insulin
--- NOTE | 2021-01-30 07:35 | Communication Note ---
Date of Service: January 30, 2021 ~0700AM. Patient's RUE IV site that was used for heparin drip is infiltrated. Removed both peripheral IV sites in the RUE. Will look into alternatives for anticoagulation and the zosyn and will update. Preserve LUE IV access because of upcoming outpatient AV fistula eval. Preserve RUE IV access today because of the infiltration/extravasation.
[2021-01-30 07:47] LABS: Basophils # (auto) 0.01 K/uL (0-0.2); Basophils % (auto) 0.1 %; Eosinophils # (auto) 0.22 K/uL (0-0.5); Eosinophils % (auto) 2.8 %; Hematocrit (blood only) 31.3 % (42-52); Hemoglobin 10.3 g/dL (14.0-18.0); Immature Granulocytes # (auto) 0.02 K/uL (0.00-0.02); Immature Granulocytes % (auto) 0.3 %; Lymphocytes # (auto) 2.52 K/uL (1.2-3.4); Lymphocytes % (auto) 32.4 %; Mean Corpuscular Hemoglobin 29.7 pg (25-34); Mean Corpuscular Hgb Conc 32.9 g/dL (32-36); Mean Corpuscular Volume 90.2 fL (80-100); Mean Platelet Volume 9.8 fL (7.4-10.4); Monocytes # (auto) 0.47 K/uL (0.11-0.59); Neutrophils # (auto) 4.53 K/uL (1.4-6.5); Neutrophils % (auto) 58.4 %; Platelet Count 137 K/uL (130-400); RDW Coefficient of Variation 14.6 % (11.5-14.5); RDW Standard Deviation 48.2 fL (36.4-46.3); Red Blood Count 3.47 M/uL (4.7-6.1); White Blood Count 7.77 K/uL (4.8-10.8)
[2021-01-30 07:59] LABS: Partial Thromboplastin Ratio 1.1; Partial Thromboplastin Time 29.6 Seconds (21.0-31.0)
[2021-01-30 08:34] LABS: BUN Creatinine Ratio 17.2 (10-20); Creatinine Clr Calc Pharmacy 12.3 ml/min; Est GFR (African American) 11.9; Est GFR (Non-African American) 10.2; Potassium 3.4 mmol/L (3.5-5.1)
[2021-01-30] MEDS ORDERED: INSULIN GLARGINE SOLOSTAR 100 UNITS/ML 3 ML PEN SC SCH (09:00)
[2021-01-30] MEDS: predniSONE 5 MG TAB PO SCH (09:20)
[2021-01-30] MEDS: CALCITRIOL 0.25 MCG CAPSULE PO SCH (09:20)
[2021-01-30] MEDS: METOPROLOL SUCC 50MG EXT REL TAB PO SCH ×2 (09:23→20:48)
[2021-01-30] MEDS: TACROLIMUS 1 MG CAP PO SCH ×2 (09:25→20:48)
[2021-01-30] MEDS: BUDESONIDE EC 3 MG CAP PO SCH (09:28)
[2021-01-30] MEDS: INSULIN ASPART 100 UNITS/ML 3 ML PEN SC SCH ×4 (09:30→20:49)
--- NOTE | 2021-01-30 09:44 | Nephrology Progress Note ---
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 He was referred for AV fistula placement with plan for in center hemodialysis in future. Admitted with progressive shortness of breath with worsening bilateral pleural effusion and mild to moderate pericardial effusion. Renal function slightly worsened. His weight down to 72.8 from 74. Having decent UO, in fact he may be diuresing too much with IV Bumex, but no significant change. in respiratory status. --change Bumex to 2 mg po BID, monitor intake and output. Recommend Thoracentesis tomorrow --no dosage adjustment needed for intranasal Calcitonin, however, his calcium has been relatively low and may decrease further with Calcitonin --monitor electrolyte, no indication for dialysis at this time. --continued tacrolimus 2 mg q.12 hours and prednisone 5 mg --left arm nephrology precaution for future AV fistula placement, Lawrence has appointment with Dr. Otero in February Will follow Admission and Anticipated Discharge Date Admission Date: January 28, 2021 Subjective Lawrence has been feeling about the same although noted slight improvement in breathing. Has been urinating frequently but not measured. Cr slightly worsened. BP has been high. Review of Systems Review of Systems: All systems reviewed & are unremarkable except as noted in Subjective Physical Exam Constitutional: + ill appearing; no acute distress Eyes: + anicteric sclerae; no conjunctival abnormality ENMT: Ears: + hearing impairment Respiratory: normal respiratory effort; no cough Auscultation: + crackles Cardiovascular: Rate/Rhythm: regular rate and regular rhythm Heart Sounds: normal S1 and normal S2 Skin: no rashes, warm and dry Neurologic: no focal motor deficits and not confused Psychiatric: A+Ox3, euthymic affect Results & Data ([facility]) Vital Signs (Past 12 Hours) Vital Signs Temp Pulse Pulse Resp BP BP Pulse Ox 01/30/21 09:04 36.9 C 99 H 16 155/90 H 93 01/30/21 07:00 52 L 01/30/21 04:08 36.8 C 69 20 175/93 H 92 01/30/21 00:00 77 01/29/21 22:38 36.4 C L 78 20 180/91 H 95 PG Care Time/CCT Total # of Minutes Spent Total Time Spent with Patient: Total time spent is greater than 50% in coordination of care (as documented) at patient's floor/unit and/or counseling patient: Coding Level of Care Code 07362 Subseq Hosp Care Lvl 3 Diagnoses Stage 5 chronic kidney disease not on chronic dialysis N18.5
[2021-01-30] MEDS ORDERED: VANCOMYCIN HCL 1,000 MG in SODIUM CHLORIDE 0.9% 250 ML IV STA (10:04)
[2021-01-30] MEDS: BUMETANIDE 4 MG in SYRINGE 0 ML IV SCH (10:06)
[2021-01-30] MEDS: ursodioL 300 MG CAP PO SCH ×2 (10:49→20:47)
--- NOTE | 2021-01-30 11:18 | Pharmacy Report ---
Pharmacy Glycemic Short Note 2 - Date of Service January 30, 2021 - Glycemic Short BSG Results (Last 24 hours): 01/29/21 01/29/21 01/29/21 11:15 12:14 16:48 Glucose 119 H POC Glucose 162 H 116 H 01/29/21 01/30/21 01/30/21 20:07 07:26 07:28 Glucose 147 H POC Glucose 207 H 168 H OUTPATIENT ANTIDIABETIC REGIMEN: * Tresiba 11 units SC AM * Novolog 7-9 units SC breakfast, 5-7 units SC lunch, 3-4 units dinner * HbA1c = 7.6% (01/29/21) ASSESSMENT: 01/30: * Patient received a total of 23 units of insulin yesterday * 9 units bolus + 14 units basal * BSGs were acceptable: [phone] mg/dL * Fasting BSG worsened today to 168 mg/dL * Will increase Lantus to match home Tresiba dose * Novolog was tightened yesterday at lunch, no change today * Patient remains on Prednisone 5 mg PO AM and Florinef 0.1 mg PO PM 01/29: * 80 yo M admitted secondary to shortness of breath. Pharmacy has been consulted for assistance with inpatient glycemic management. * Patient is on chronic steroids at home which we will continue here * Prednisone 5 mg PO AM * Fludrocortisone 0.1 mg PO PM * Will start with a 20% reduction in home Lantus dose * Will start with Novolog based on weight/stress of 2 PLAN FOR INPATIENT GLYCEMIC CONTROL: * Basal insulin - increased * Lantus 11 units SQ AM * Bolus insulin - no change * NovoLog per scale ACHS or Q6hrs while NPO * Goal Range: Low 110 mg/dL - High 140 mg/dL * Correction Factor: 25 mg/dL/unit * Nutritional / Prandial insulin per carb ratio of 1 unit per 8 grams CHO consumed PLAN FOR DISCHARGE: * HbA1c is 7.6% from this admission which has increased from 7.1% in August 2020. This is still below his goal HbA1c of 8%. * Continue with outpatient regimen as long as patient is not experiencing any hypoglycemia at home. Report any persistent highs/lows to outpatient provider.
--- NOTE | 2021-01-30 11:28 | Pharmacy Report ---
Pharmacy Abx Dose Short Note - Date of Service January 30, 2021 - Assessment & Plan Assessment 80 year old M receiving Vancomycin + Zosyn for treatment of possible pneumonia * Patient's SCr worsened to 4.95 mg/dL today. Nephrology is consulted - no indication for dialysis at this time * Given current kidney function, would use concomitant vancomycin + zosyn for shortest possible duration * Zosyn will be switched to Cefepime today * Pulmonology consulted - will follow their recommendations * Patient is afebrile. No leukocytosis. Procalcitonin was negative at 0.08. * Blood cultures pending. Does have a history of MRSA (Vanc CONSUELO = 2) which grew in abdominal wall culture in 2018. MRSA swab is positive. * One IV site has infiltrated so both UE peripheral IVs were removed and order placed for LE peripheral IV sites * Abx doses will likely be delayed Plan Vancomycin * Random level of 13.0 mcg/mL is subtherapeutic * Per patient specific kinetic calculations, found Sebastien to be 0.018 and t 1/2 to be ~ 36 hours * Will continue to utilize dosing per level for now * Vancomycin 1000 mg IV x 1 today * Goal random level: 15 to 20 mcg/mL * Random level ordered for tomorrow morning Cefepime * 2 g IV every 24 hours Pharmacy will continue to follow and will adjust dose/frequency as necessary. Thank you.
[2021-01-30] MEDS: BUMETANIDE 1 MG TAB PO SCH ×2 (11:59→20:47)
[2021-01-30] MEDS: HEPARIN SODIUM/DEXTROSE 25,000 UNITS/500 ML BAG IV SCH (12:03)
[2021-01-30] MEDS: DUTASTERIDE PO SCH (12:16)
--- NOTE | 2021-01-30 13:01 | XRay Report ---
XR chest 1V portable HISTORY: 80 years-old Male dyspnea acute shortness of breath COMPARISON: Chest CT and chest radiographs 01/28/2021 TECHNIQUE: Portable upright AP view of the chest FINDINGS: Cardiac silhouette is enlarged. Calcified plaque of the thoracic aorta. Unchanged right greater left pleural effusions with bibasilar consolidation. No pneumothorax. No overt pulmonary edema. Bones of t he chest appear grossly intact. IMPRESSION: 1. Cardiomegaly. 2. Unchanged right greater than left pleural effusions with bibasilar consolidation. ACT 112: Negative or not required by law. The above report was generated using voice recognition software. It may contain grammatical, syntax o r spelling errors. Electronically signed by: Delfin Thurman M.D. 01/30/2021 1:00 PM
--- NOTE | 2021-01-30 15:00 | Pulmonology Progress Note ---
Date of Service January 30, 2021 Assessment & Plan (1) Dyspnea on minimal exertion: (2) Bilateral pleural effusion: . CT chest 01/28/2021 personally reviewed: Bilateral pleural effusion more on the right side. No mediastinal adenopathy, mild pericardial effusion. --Bilateral pleural effusion BNP greater than 12,000 Creatinine 4.5 Influenza A/B negative, COVID-19 PCR negative Procalcitonin 1.03 The etiology is most likely fluid overload with underlying CKD Patient on apixaban last dose being on 01/28/2021. --History of liver transplant On tacrolimus and chronic 5 mg prednisone --Pulmonary hypertension Likely type II RVSP 30-40 mmHg Plan: Plan for thoracentesis tomorrow. Hold heparin at 6 AM. Platelets 137 today Last apixaban dose was 01/28/2021. Thoracentesis will be safe to be done on 01/31/2021 which will be after 48 hours of the last dose. Patient's platelets are on the lower side. Please note the above document was generated using voice recognition software. It may contain grammatical, syntax or spelling errors.Any formal questions or concerns about the content, text or information contained within the body of this dictation should be directly addressed to the provider for clarification. (3) CKD (chronic kidney disease): Chronic kidney disease stage: stage 4 (severe) Qualified Code(s): N18.4 - Chronic kidney disease, stage 4 (severe) (4) Pulmonary hypertension: Admission and Anticipated Discharge Date Admission Date: January 28, 2021 Subjective Patient seen and examined at bedside. No acute distress, no adverse events overnight. Still complains of shortness of breath on exertion. Saturating 93-94% on room air at rest. Denies any chest pain, no headache, no nausea, no vomiting. Complains of generalized lethargy. Review of Systems Review of Systems: All systems reviewed & are unremarkable except as noted in Subjective Physical Exam Physical Exam: Constitutional: No acute distress HEENT: EOMI, PERRLA, hard to hear Respiratory system: Decreased air entry bilaterally, no wheeze, rhonchi, positive crackles bilateral lower lobes CVS: S1-S2 positive, no murmurs or gallops, irregular rhythm Abdomen: Soft, nontender, nondistended, positive bowel sounds x4 Extremities: +2 pulses bilaterally radialis/ dorsalis pedis, no cyanosis, +1 edema right lower extremity, ecchymosis appreciated bilaterally on the dorsal surfaces Neuro: Awake alert oriented x3 Psych: Normal mood and affect G/U: No Petersen Skin: no rashes, warm and dry Lymphatic: no cervical or axillary lymphadenopathy Results & Data Results & Data ([facility]) Vital Signs (Past 12 Hours) Vital Signs Temp Pulse Pulse Resp BP BP Pulse Ox 01/30/21 11:45 36.4 C L 100 H 16 94 01/30/21 09:04 36.9 C 99 H 16 155/90 H 93 01/30/21 07:00 52 L 01/30/21 04:08 36.8 C 69 20 175/93 H 92 01/30/21 07:26 01/30/21 07:26 PG Care Time/CCT Total # of Minutes Spent Total Time Spent with Patient: Total time spent is greater than 50% in coordination of care (as documented) at patient's floor/unit and/or counseling patient: Coding Level of Care Code 07898 Subseq Hosp Care Lvl 3 Diagnoses Dyspnea on minimal exertion R06.00 Bilateral pleural effusion J90 CKD (chronic kidney disease) N18.4 Chronic kidney disease stage: stage 4 (severe) Pulmonary hypertension I27.20
[2021-01-30] MEDS: CEFEPIME 2,000 MG in SYRINGE 0 ML IV SCH (16:23)
[2021-01-30] MEDS: VENLAFAXINE HCL XR 37.5 MG CAPXR PO SCH (17:54)
[2021-01-30 18:56] LABS: Partial Thromboplastin Time 53.6 Seconds (21.0-31.0)
[2021-01-30] MEDS: DONEPEZIL HCL 10 MG TAB PO SCH (20:47)
[2021-01-30] MEDS: AMITRIPTYLINE HCL 10 MG TAB PO SCH (20:47)
[2021-01-30] MEDS: TAMSULOSIN HCL 0.4 MG CAP PO SCH (20:47)
[2021-01-30] MEDS: FLUDROCORTISONE ACETATE 0.1 MG TAB PO SCH (20:47)
--- NOTE | 2021-01-31 07:07 | Hospitalist Progress Note ---
Date of Service January 31, 2021 Assessment & Plan (1) Bilateral pleural effusion: 80 y/o male w/ hx of CKD5, AFib on Eliquis, and hx of liver transplant (for PSC) who presented w/ 2 months of progressively worsening GUERRIER and fatigue. AMS on 02/01. Dysphagia, tremors. - new onset of generalized tremor/shaking, very noticeable at face. per patient's , she noticed dysarthria and tremor 2 days ago. this is not patient's baseline - slight dysarthria that may be secondary to tremor/shaking - A&Ox4, no focal neuro deficits. patient denies confusion. He had some generalized weakness earlier in the morning. - CT head did not show acute bleed or acute ischemic changes, but did show total opacification of R paranasal sinus. Repeat neuro exam performed and patient does not seem to have confusion, so did not order brain MRI - patient is at increased risk of stroke and VTE given his past medical hx and temporary hold of heparin drip while awaiting thoracentesis - no tachycardia or dyspnea, so less suggestive for PE - vbg unimpressive - the tremors are reminiscent of symptoms of hypocalcemia. ecg no acute changes or QT prolongation. ionized Ca was low at 0.84. repleted w/ 2g IV calcium gluconate followed by 1g - if no symptom improvement, will order MRI brain w/o contrast and consult neuro - considered metabolic encephalopathy - at risk because of CKD5 - ammonia level wnl - also consider drug-induced Parkinsonism since describes similar episode in past after taking gabapentin. Patient was given 1 tab of 100 mg gabapentin PRN on 01/29/21. Patient has also recently been started on amitriptyline 10 mg a few wks ago and had received 3 doses this admission. this has since been held. Patient is also on home venlafaxine 37.5 mg. hypocalcemia - see above - 01/31 ionized calcium 0.84L. corrected calcium 8.0 (7.0 uncorrected). - 2g IV calcium gluconate ordered. assess clinically 1 hour later and did not see improvement in tremors or dysarthria - ordered additional 1g IV calcium gluconate. will reassess clinically acute dyspnea, in setting of new moderate bilateral pleural effusions - s/p 40 mg IV Lasix in ED. home regimen is 40 mg PO Lasix; Bumex 4 mg BID during this admission. - good symptom improvement s/p above and nebs - 01/29 echo: EF 55-60. Normal LV function. - blood cultures pending - pulmonology consulted; diagnostic/therapeutic thoracentesis planned for 01/31 - daily Is/Os and weights. ordered external urinary catheter on 01/30 for more accurate measurement - 01/31: 1.5L in 1.7L out. cumulative 4.2L in 2.9L out. weights 74kg->72.9kg->75.5kg pleural effusion - more likely transudative than exudative per hx. pleural fluid labs after thoracentesis - will attempt diuresis. 4 mg BID IV bumex changed to 2 mg BID PO bumex on 01/30 per nephrology given creatinine bump and weight on 01/28 (74kg) to 01/29 (72.9kg) - s/p R thoracentesis on 01/31. pleural studies pending. - ordered 02/01 AM lab serum LDH r/o of pneumonia - 01/30 cxr: Unchanged right greater than left pleural effusions with bibasilar consolidation. - per cxr above and ct at admission, cannot exclude infectious process. given patient's immunosuppressed state and + MRSA nasal swab (01/28), will continue MRSA coverage. changed from vanc/zosyn to vanc/cefepime because of kidney function - 01/31 will switch from vanc/cefepime to Unasyn to cover for CAP and anaerobes. lower suspicion for MRSA despite + nasal swab - no leukocytosis infiltrated IV site at RUE 01/30 - removed both RUE peripheral IV sites - established peripheral IV access at BLE near ankles - preserve access of LUE chronically, RUE temporarily afib on chronic anticoagulation - home apixaban 2.5 mg BID held this admission. - home ASA held - continue rate control w/ Toprol, renal dose adjustment as needed - 01/31 after thoracentesis, restarted heparin drip pericardial effusion - per 01/29 echo, small-moderate, stable chronic kidney disease stage 5 - Cr has been mid-upper 4s in past several months. 01/29 4.69. 01/30 4.95. 01/31 5.30 and 5.21. - egfr this admission hovering between 10 and 11. 01/29->01/02 egfr 10.9->10.2, not drastic decrease - nephro consulted. recs: diuresis as above. L arm precaution for future AV fistula - 01/30 added low sodium (<2g) to diet order - 01/31 nephro started gentle IVF. stopped diuresis. status post liver transplant - liver enzymes normal on admission - Continue home Prograf, prednisone, Ursodiol, - removed prn tylenol from orders compression fracture - at L1 per CT - may have contributed to some of patient's chest stiffness symptom, though he was stiff diffusely - considered nasal calcitonin for analgesia, but will defer at this time because pain is tolerable. memory impairment: - at baseline, per - continue donepezil 10 mg - Avoid sedating agents and benzos as possible - fall risk protocol Type 2 diabetes mellitus, on insulin - A1C 7.6 01/29 - Lantus 11u qam this admission w/ SSI. management per pharmacy consult. goal 110-140. CF 25. 1:8 carb ratio. - SSI, pharmacy consulted. Hypothyroidism: - stable w/ normal T4 Obstructive sleep apnea: - using home cpap FEN/GI: NPO because aspiration risk. speech eval ordered. Kcl 40meq in NSS 100/hr code: full ppx: heparin drip restarted after thoracentesis dispo: med surg w/ tele. ordered PT/OT evals. (2) Stage 5 chronic kidney disease not on chronic dialysis: (3) Acute dyspnea: (4) Obstructive sleep apnea: (5) PAF (paroxysmal atrial fibrillation): (6) Type 2 diabetes mellitus: (7) Compression fracture: (8) IV infiltration: Admission and Anticipated Discharge Date Admission Date: January 28, 2021 Supervising Physician Co-Signing Physician Notes Patient seen and examined with PGY-1 Dr. Hernandez. Agree with history, exam findings, assessment and plan of care as outlined. 80 year old male with history of CKD stage 4, Afib (AC with Julianne), and liver transplant for PSC admitted with progressive dyspnea on exertion and fatigue. This morning, he is tremulous. Reporting difficulty swallowing with some nausea. Denies weakness in the extremities. Spoke with nursinghas had several episodes of loose stool. Vital signs and nursing notes reviewed. Heart with irregular rhythm. Abdomen with good bowel sounds. Soft, non-tender, non-distended. Cranial nerves symmetric and in tact. He is able to handle his secretions. Tremor in the head and hands. 1. Dysphagia. NPO for nowconcerns for aspiration vs new ischemia. Stat head CT without new bleed or other ischemic changes. Noted Right maxillary opacity, but already on antibiotics that should cover ARBS. Speech consult. Start D5 1/2NS with potassium at 100/hr. 2. Diarrhea. This is new. Check C. diffpending. 3. Hypocalcemia. Repleting. May be contributing to his tremulousness noted this AM. Started calcitriol per renal. 4. Tremor. New. ?secondary to PRN gabapentin. Will d/c this. Also d/c TCA that was recently started. 5. Acute dyspnea with new bilateral pleural effusion. Hold diuresis since he is hypovolemic. At home, takes 40mg PO Lasix. TTE with preserved EF of 55-60% and normal LV function. Appreciate pulm and nephrology recommendations 6. Pleural effusion. s/p thoracentesis today. Removed 1750mL from the right lung. Pending cytology, labs and gram stain. 7. ?Pneumonia but unable to rule out definitively given concomitant pleural effusions. Given immune suppressed status, empirically treating for bacterial pneumonia. Coverage for aspiration. De-escalated to Unasyn today. 8. Afib. Rate controlled. Holding apixaban in anticipation of thoracentesis. On heparin gtt. Continue home metoprolol. 9. CKD. No blood draws or blood pressures on left armpossible site for fistula. Appreciate nephrology recommendations. 10. DM. Received only 5u lantus this AM due to new NPO status. Appreciate glycemic consult recommendations. 11. Cognitive impairment. At baseline. Continue home donepezil. High risk for delirium. 12. Acute/subacute L1 compression fracture. Pain is not bothersome at this time. 13. Hx of liver transplant. Continue home prograf, pred, and ursodiol. Dispo: pending clinical improvement. Subjective This AM, patient had mild sob and felt as if he could not take deep breath. The breathing felt about same as yesterday. He notes that his LE swelling has decreased significantly. Per nurse, patient had diarrhea overnight. Per patient's , he's noticeably dysarthric and tremoring and that this is not his baseline. She noticed these symptoms since 2 days ago. He had a similar presentation in jun-jul 2020 after he took gabapentin. Review of Systems Review of Systems: Constitutional: Denies fever, chills Eyes: Denies blurry vision Cardiovascular: Denies chest pain Respiratory: See HPI Gastrointestinal: Denies nausea, vomiting, constipation, diarrhea. On reexam, patient stated that he had been having some abdominal pain last few days. Genitourinary: Denies urinary symptoms including dysuria Musculoskeletal: Denies weakness, muscle aches/pain, joint aches/pain Neurological: Denies headache, numbness, tingling, focal weakness Physical Exam Physical Exam: General: alert and oriented x4 to person, place, time, and context. NAD. Cooperative. Has very noticeable generalized tremor and teeth chattering. HEENT: Atraumatic, normocephalic. EOMI. PERRL, pupils on smaller side. Pulm: CTAB. No respiratory distress. Patient was tremoring significantly during lung auscultation. Cardiac: Irregularly irregular rhythm, -mrg. No lower extremity edema. Abdominal: Nontender, nondistended, soft. Integ: RUE ecchymosis. BLE has peripheral IVs. Chronic bilat venous stasis changes, but coloration appears better than yesterday. Neuro: CN II-XII intact per my exam. No facial droop or asymmetric smile. 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 Was able to complete 3 serial 7s from 100 w/ some prompting. 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
[2021-01-31] MEDS: HEPARIN SODIUM/DEXTROSE 25,000 UNITS/500 ML BAG IV SCH (07:19)
--- NOTE | 2021-01-31 08:24 | XRay Report ---
XR chest 1V portable HISTORY: pulmonary edema COMPARISON: 01/30/2021. FINDINGS: No pneumothorax. The heart remains enlarged. No evidence for pulmonary edema. No change in the small to moderate bilateral pleural effusions and bibasilar densities. IMPRESSION: No change in the small to moderate bilateral pleural effusions and bibasilar densities. ACT 112: Negative or not required by law. Electronically signed by: Austin Mendoza M.D. 01/31/2021 8:23 AM
[2021-01-31] MEDS ORDERED: Nursing to Pharmacy Communication SCH ×2 (08:45→11:30)
[2021-01-31] MEDS: INSULIN ASPART 100 UNITS/ML 3 ML PEN SC SCH ×4 (08:46→17:26)
[2021-01-31] MEDS: ONDANSETRON INJ 2 MG/ML 2 ML VIAL IV PRN (08:51)
[2021-01-31] MEDS: BUMETANIDE 1 MG TAB PO SCH (09:00)
[2021-01-31] MEDS: METOPROLOL SUCC 50MG EXT REL TAB PO SCH ×2 (09:00→21:37)
[2021-01-31] MEDS ORDERED: INSULIN GLARGINE SOLOSTAR 100 UNITS/ML 3 ML PEN SC SCH (09:00)
[2021-01-31] MEDS: TACROLIMUS 1 MG CAP PO SCH ×2 (09:00→21:37)
[2021-01-31] MEDS: predniSONE 5 MG TAB PO SCH (09:00)
[2021-01-31] MEDS: BUDESONIDE EC 3 MG CAP PO SCH (09:00)
[2021-01-31] MEDS: CALCITRIOL 0.25 MCG CAPSULE PO SCH (09:00)
[2021-01-31] MEDS: ursodioL 300 MG CAP PO SCH ×2 (09:00→21:36)
[2021-01-31 09:08] LABS: Base Excess VBG 4.1 mEq/L; pH VBG 7.44 (7.36-7.41)
[2021-01-31 09:09] LABS: Basophils # (auto) 0.01 K/uL (0-0.2); Basophils % (auto) 0.2 %; Eosinophils # (auto) 0.15 K/uL (0-0.5); Eosinophils % (auto) 2.3 %; Hematocrit (blood only) 32.8 % (42-52); Hemoglobin 10.9 g/dL (14.0-18.0); Immature Granulocytes # (auto) 0.03 K/uL (0.00-0.02); Immature Granulocytes % (auto) 0.5 %; Lymphocytes # (auto) 1.96 K/uL (1.2-3.4); Lymphocytes % (auto) 29.8 %; Mean Corpuscular Hemoglobin 29.5 pg (25-34); Mean Corpuscular Hgb Conc 33.2 g/dL (32-36); Mean Corpuscular Volume 88.9 fL (80-100); Mean Platelet Volume 10.1 fL (7.4-10.4); Monocytes # (auto) 0.42 K/uL (0.11-0.59); Monocytes % (auto) 6.4 %; Neutrophils % (auto) 60.8 %; Platelet Count 133 K/uL (130-400); RDW Coefficient of Variation 14.6 % (11.5-14.5); RDW Standard Deviation 47.4 fL (36.4-46.3); Red Blood Count 3.69 M/uL (4.7-6.1); White Blood Count 6.57 K/uL (4.8-10.8)
[2021-01-31 09:19] LABS: Partial Thromboplastin Ratio 1.3; Partial Thromboplastin Time 35.2 Seconds (21.0-31.0)
--- NOTE | 2021-01-31 09:31 | CT Scan Report ---
HEAD CT NONCONTRAST CT DOSE: 884.08 mGy.cm HISTORY: new slight dysarthria. Mentation slightly off TECHNIQUE: Multiaxial CT images of the head were performed without the use of intravenous contrast. A utomated exposure control was utilized for this study. A dose lowering technique was utilized adheri ng to the principles of ALARA. Comparison: 07/25/2020. Findings: Near complete opacification the right maxillary sinus which has progressed. The mastoid air cells are clear. The calvarium and skull base are intact. There is no mass, hematoma, midline shift, acute infarct. White matter hypodensity is nonspecific but suggestive of microvascular ischemic gregory ge. The ventricles and sulci demonstrate mild age-related involutional changes. Impression: No acute intracranial abnormality. Atrophy and microvascular ischemic changes. Near complete opacific ation of the right maxillary sinus. ACT 112: Negative or not required by law. Electronically signed by: Austin Mendoza M.D. 01/31/2021 9:30 AM
[2021-01-31 10:04] LABS: BUN Creatinine Ratio 15.5 (10-20); Calcium 7.2 mg/dl (8.5-10.1); Creatinine Clr Calc Pharmacy 11.8 ml/min; Est GFR (African American) 10.9; Est GFR (Non-African American) 9.4; Magnesium 1.9 mg/dl (1.8-2.4); Potassium 3.2 mmol/L (3.5-5.1)
--- NOTE | 2021-01-31 10:24 | Pharmacy Report ---
Pharmacy Abx Dose Short Note - Date of Service January 31, 2021 - Assessment & Plan Assessment * 80 year old M receiving cefepime and vancomycin for treatment of possible PNA (MRSA nasal swab positive) * Hx liver txp , CKD V (not on HD but referred for AV fistula with plan for HD in future, likely February), diabetes * WBC wnl, afebrile Vancomycin * Discussed risk/benefit on ongoing vancomycin therapy with Dr. Hernandez - for now, favors continuation of vancomycin, pending thoracentesis pleural fluid analysis * Goal vancomycin trough 15-20 mcg/mL * Random level of 21.0 mcg/mL is slightly above goal. Previously, level trended down from 20.1 to 13.0 mcg/mL over 24 hours (without HD), therefore anticipate that level will be subtherapeutic tomorrow if no additional vancomycin administered today. Will therefore give a small dose and re-check level tomorrow AM Plan * Vancomycin 500 mg IV x1 @ 1200 * Repeat random level with AM labs tomorrow Pharmacy will continue to follow and will adjust dose/frequency as necessary. Thank you.
[2021-01-31] MEDS: DUTASTERIDE PO SCH (11:27)
--- NOTE | 2021-01-31 11:38 | Nephrology Progress Note ---
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 Baseline creatinine ~4.5 mg/dL. No emergent indication for HD at this time. Lawrence is hoping to delay [employer] until AVF placement currently scheduled for February with Dr. Otero. Non-oliguric. Urine output acceptable. Electrolytes acceptable. Noted hypokalemia. Despite pleural and pericardial effusions, Lawrence is hypovolemic. Diuretics will be held and gentle IVF provided. Lawrence is currently NPO due to concern for aspiration. He received a reduced dose of Lantus. IV D5 1/2NS + 40 mEq KCl ordered at 100 ml/hr x 1 L. Will repeat metabolic profile + PO4 + albumin this afternoon. Will hold diuretics for now. Thoracentesis to be performed when stable. Left arm nephrology precaution for future AV fistula placement. Unfortunately, if clinical condition does not improve may require TDC and emergent start. Monitor as inpatient for now. Hospitalist service providing evaluation for mental status changes, including CT head reviewed this AM. I have held amitriptyline which was recently started in the outpatient setting. (2) Bilateral pleural effusion: Thoracentesis to be performed when able. (3) Secondary hyperparathyroidism of renal origin: Calcitriol 0.5 mcg QAM. (4) Anemia: Chronic, stable. BENNY therapy deferred for Hgb >10. Admission and Anticipated Discharge Date Admission Date: January 28, 2021 Subjective Nursing staff report acute change in mental status this AM. Lawrence's speech reportedly changed. Exhibiting difficulty swallowing and concerns for aspiration. Lawrence is now NPO. He is very tremulous. No fevers. Appetite poor. Remains incontinent of urine complicating I/O's. Breathing improved. Tachycardic and hypotensive this AM. Review of Systems Constitutional: + fatigue and + insomnia; no fever Eyes: no problem reported Ear, Nose, Mouth, Throat: + dry mouth, + change in voice and + dysphagia; no sinus pain/pressure and no pain with swallowing Respiratory: + cough (with liquids this AM); no dyspnea Cardiovascular: no chest pain, no dyspnea at rest, no palpitations and no edema Gastrointestinal: no change in bowel habits and no problem reported Genitourinary: + urinary incontinence; no problem reported Musculoskeletal: no problem reported Integumentary: + bleeding lesions, + erythema and + unusual bruising; no problem reported Neurologic: + generalized weakness and + tremor(s) Psychiatric: no problem reported Physical Exam Constitutional: + thin and + frail appearing Eyes: + anicteric sclerae; no corneal abnormality ENMT: Ears: + hearing impairment Mouth: + dry oral mucous membranes Neck: normal visual inspection and trachea midline Respiratory: normal respiratory effort Auscultation: + diminished lung sounds; no rales Cardiovascular: Rate/Rhythm: + tachycardic and + irregularly irregular Heart Sounds: normal S1 and normal S2 Vessels: + JVD Extremities: no edema Gastrointestinal (Abdomen): Percussion/Palpation: abdomen soft; abdomen nontender Musculoskeletal: Extremities: + cyanosis; no clubbing Skin: + turgor decreased and + ecchymosis Neurologic: awake Speech / Cognition: no expressive aphasia Motor/Sensory: + tremor and + fasciculations Psychiatric: Orientation: alert and oriented x 3 Results & Data ([facility]) Vital Signs (Past 12 Hours) Vital Signs Temp Pulse Pulse Resp BP Pulse Ox 01/31/21 08:00 36.8 C 91 H 20 103/63 94 01/31/21 07:25 106 H 01/31/21 03:24 36.9 C 121 H 16 93 Laboratory Results Laboratory Results - last 24 hr 01/30/21 01/30/21 01/30/21 16:45 18:00 20:02 WBC RBC Hgb Hct MCV MCH MCHC RDW Std Deviation RDW Coeff of Penelope Plt Count MPV Immature Gran % (Auto) Neut % (Auto) Lymph % (Auto) [place] % (Auto) Eos % (Auto) Baso % (Auto) Neut # (Auto) Lymph # (Auto) [place] # (Auto) Eos # (Auto) Baso # (Auto) Immature Gran # (Auto) APTT 53.6 H* PTT Ratio 2.0 VBG pH VBG pCO2 VBG pO2 VBG HCO3 VBG O2 Saturation VBG Base Excess Barometric Pressure Sodium Potassium Chloride Carbon Dioxide Anion Gap BUN Creatinine Est Cr Clr Drug Dosing Est GFR ( Amer) Est GFR (Non-Af Amer) BUN/Creatinine Ratio Glucose POC Glucose 132 H 164 H Calcium Ionized Calcium Phosphorus Magnesium Ammonia Random Vancomycin 01/31/21 01/31/21 01/31/21 07:47 08:53 08:53 WBC RBC Hgb Hct MCV MCH MCHC RDW Std Deviation RDW Coeff of Penelope Plt Count MPV Immature Gran % (Auto) Neut % (Auto) Lymph % (Auto) [place] % (Auto) Eos % (Auto) Baso % (Auto) Neut # (Auto) Lymph # (Auto) [place] # (Auto) Eos # (Auto) Baso # (Auto) Immature Gran # (Auto) APTT PTT Ratio VBG pH VBG pCO2 VBG pO2 VBG HCO3 VBG O2 Saturation VBG Base Excess Barometric Pressure Sodium 137 Potassium 3.2 L Chloride 101 Carbon Dioxide 28 Anion Gap 8.0 BUN 82 H Creatinine 5.30 H* D Est Cr Clr Drug Dosing 11.8 Est GFR ( Amer) 10.9 Est GFR (Non-Af Amer) 9.4 BUN/Creatinine Ratio 15.5 Glucose 167 H POC Glucose 159 H Calcium 7.2 L Ionized Calcium Phosphorus Magnesium 1.9 Ammonia Random Vancomycin 21.0 01/31/21 01/31/21 01/31/21 08:53 08:53 08:54 WBC 6.57 RBC 3.69 L Hgb 10.9 L Hct 32.8 L MCV 88.9 MCH 29.5 MCHC 33.2 RDW Std Deviation 47.4 H RDW Coeff of Penelope 14.6 H Plt Count 133 MPV 10.1 Immature Gran % (Auto) 0.5 Neut % (Auto) 60.8 Lymph % (Auto) 29.8 [place] % (Auto) 6.4 Eos % (Auto) 2.3 Baso % (Auto) 0.2 Neut # (Auto) 4.00 Lymph # (Auto) 1.96 [place] # (Auto) 0.42 Eos # (Auto) 0.15 Baso # (Auto) 0.01 Immature Gran # (Auto) 0.03 H APTT 35.2 H PTT Ratio 1.3 VBG pH VBG pCO2 VBG pO2 VBG HCO3 VBG O2 Saturation VBG Base Excess Barometric Pressure Sodium Potassium Chloride Carbon Dioxide Anion Gap BUN Creatinine Est Cr Clr Drug Dosing Est GFR ( Amer) Est GFR (Non-Af Amer) BUN/Creatinine Ratio Glucose POC Glucose Calcium Ionized Calcium Phosphorus Magnesium Ammonia 11.5 Random Vancomycin 01/31/21 01/31/21 01/31/21 08:54 11:21 11:22 WBC RBC Hgb Hct MCV MCH MCHC RDW Std Deviation RDW Coeff of Penelope Plt Count MPV Immature Gran % (Auto) Neut % (Auto) Lymph % (Auto) [place] % (Auto) Eos % (Auto) Baso % (Auto) Neut # (Auto) Lymph # (Auto) [place] # (Auto) Eos # (Auto) Baso # (Auto) Immature Gran # (Auto) APTT PTT Ratio VBG pH 7.44 H VBG pCO2 44 VBG pO2 33 VBG HCO3 29 VBG O2 Saturation 66.0 VBG Base Excess 4.1 Barometric Pressure 735.2 Sodium Potassium Chloride Carbon Dioxide Anion Gap BUN Creatinine Est Cr Clr Drug Dosing Est GFR ( Amer) Est GFR (Non-Af Amer) BUN/Creatinine Ratio Glucose POC Glucose 169 H Calcium Ionized Calcium 0.84 L Phosphorus Magnesium Ammonia Random Vancomycin 01/31/21 11:22 WBC RBC Hgb Hct MCV MCH MCHC RDW Std Deviation RDW Coeff of Penelope Plt Count MPV Immature Gran % (Auto) Neut % (Auto) Lymph % (Auto) [place] % (Auto) Eos % (Auto) Baso % (Auto) Neut # (Auto) Lymph # (Auto) [place] # (Auto) Eos # (Auto) Baso # (Auto) Immature Gran # (Auto) APTT PTT Ratio VBG pH VBG pCO2 VBG pO2 VBG HCO3 VBG O2 Saturation VBG Base Excess Barometric Pressure Sodium Potassium Chloride Carbon Dioxide Anion Gap BUN Creatinine Est Cr Clr Drug Dosing Est GFR ( Amer) Est GFR (Non-Af Amer) BUN/Creatinine Ratio Glucose POC Glucose Calcium Ionized Calcium Phosphorus Pending Magnesium Ammonia Random Vancomycin Diagnostic Findings CXR: stable BL pleural effusions. PG Care Time/CCT Total # of Minutes Spent Total Time Spent with Patient: Total time spent is greater than 50% in coordination of care (as documented) at patient's floor/unit and/or counseling patient: Coding Level of Care Code 66124 Subseq Hosp Care Lvl 3 Diagnoses Stage 5 chronic kidney disease not on chronic dialysis N18.5 Bilateral pleural effusion J90 Secondary hyperparathyroidism of renal origin N25.81 Anemia D64.9
[2021-01-31] MEDS ORDERED: POTASSIUM CHLORIDE 40 MEQ in D5W AND 1/2NSS 1,000 ML/1,000 ML BAG IV SCH (11:45)
[2021-01-31] MEDS ORDERED: VANCOMYCIN HCL 500 MG in 0.9 % SODIUM CHLORIDE 100 ML IV ONE (12:00)
--- NOTE | 2021-01-31 13:27 | Electrocardiogram Report ---
Test Reason : Blood Pressure : / mmHG Vent. Rate : 091 BPM Atrial Rate : 375 BPM P-R Int : 000 ms QRS Dur : 090 ms QT Int : 380 ms P-R-T Axes : 000 014 141 degrees QTc Int : 467 ms Atrial fibrillation with premature ventricular or aberrantly conducted complexes Prolonged QT Abnormal ECG When compared with ECG of 28-JAN-2021 16:23, No significant change was found Confirmed by Abe Madrigal ([id number]) on 01/31/2021 1:27:28 PM Referred By: Jhonny Cobos Confirmed By:Abe Madrigal
--- NOTE | 2021-01-31 13:29 | Pulmonology Progress Note ---
Date of Service January 31, 2021 Assessment & Plan (1) Dyspnea on minimal exertion: (2) Bilateral pleural effusion: . CT chest 01/28/2021 personally reviewed: Bilateral pleural effusion more on the right side. No mediastinal adenopathy, mild pericardial effusion. --Bilateral pleural effusion BNP greater than 12,000 Creatinine 4.5 Influenza A/B negative, COVID-19 PCR negative Procalcitonin 1.03 The etiology is most likely fluid overload with underlying CKD Patient on apixaban last dose being on 01/28/2021. --History of liver transplant On tacrolimus and chronic 5 mg prednisone --Pulmonary hypertension Likely type II RVSP 30-40 mmHg Plan: For thoracentesis today. Consent signed, witnessed and put in the chart Please note the above document was generated using voice recognition software. It may contain grammatical, syntax or spelling errors.Any formal questions or concerns about the content, text or information contained within the body of this dictation should be directly addressed to the provider for clarification. (3) CKD (chronic kidney disease): Chronic kidney disease stage: stage 4 (severe) Qualified Code(s): N18.4 - Chronic kidney disease, stage 4 (severe) (4) Pulmonary hypertension: Admission and Anticipated Discharge Date Admission Date: January 28, 2021 Subjective Patient seen and examined at bedside. No acute distress. Patient has been having this shakiness/jerks especially on purposeful movement. Patient never had this before. Denies any chest pain, shortness of breath is improved. Denies any headache, no nausea or vomiting. Review of Systems Review of Systems: All systems reviewed & are unremarkable except as noted in Subjective Physical Exam Physical Exam: Constitutional: No acute distress HEENT: EOMI, PERRLA, hard to hear Respiratory system: Decreased air entry bilaterally, no wheeze, rhonchi, positive crackles bilateral lower lobes CVS: S1-S2 positive, no murmurs or gallops, irregular rhythm Abdomen: Soft, nontender, nondistended, positive bowel sounds x4 Extremities: +2 pulses bilaterally radialis/ dorsalis pedis, no cyanosis, +1 edema right lower extremity, ecchymosis appreciated bilaterally on the dorsal surfaces Neuro: Awake alert oriented x3 Psych: Normal mood and affect G/U: No Petersen Skin: no rashes, warm and dry Lymphatic: no cervical or axillary lymphadenopathy Results & Data Results & Data ([facility]) Vital Signs (Past 12 Hours) Vital Signs Temp Pulse Pulse Resp BP Pulse Ox 01/31/21 11:53 37.0 C 88 20 147/85 H 97 01/31/21 08:00 36.8 C 91 H 20 103/63 94 01/31/21 07:25 106 H 01/31/21 03:24 36.9 C 121 H 16 93 01/31/21 08:54 01/31/21 08:53 PG Care Time/CCT Total # of Minutes Spent Total Time Spent with Patient: Total time spent is greater than 50% in coordination of care (as documented) at patient's floor/unit and/or counseling patient: Coding Level of Care Code 64163 Subseq Hosp Care Lvl 3 Diagnoses Dyspnea on minimal exertion R06.00 Bilateral pleural effusion J90 CKD (chronic kidney disease) N18.4 Chronic kidney disease stage: stage 4 (severe) Pulmonary hypertension I27.20
[2021-01-31] MEDS ORDERED: CALCIUM GLUCONATE 10% 2,000 MG in SODIUM CHLORIDE 0.9% 50 ML IV ONE (14:42)
[2021-01-31] MEDS ORDERED: CALCIUM GLUCONATE 10% 1,000 MG in SODIUM CHLORIDE 0.9% 50 ML IV ONE ×2 (14:47→17:00)
--- NOTE | 2021-01-31 15:22 | XRay Report ---
XR chest 1V portable HISTORY: S/p thoracentesis procedure. COMPARISON: Chest 01/31/2021. FINDINGS: The heart remains mildly enlarged. There is near complete resolution of the trace right ple ural effusion. No pneumothorax. Small left pleural effusion and left basilar densities persist. IMPRESSION: 1. Near-complete resolution of the trace right pleural effusion. No pneumothorax. 2. Small left pleural effusion and left basilar densities persist. ACT 112: Negative or not required by law. Electronically signed by: Austin Mendoza M.D. 01/31/2021 3:21 PM
--- NOTE | 2021-01-31 15:44 | Procedure Note ---
Procedure Note Date of Service January 31, 2021 Procedure: Diagnostic therapeutic ultrasound-guided catheter thoracentesis Quality Assurance Nurse: Dr. Ekta Mai Indication: Pleural effusion Consent: Signed by patient's in front of the patient and verified with timeout prior to procedure Anesthesia: 1% lidocaine without epinephrine local. Procedure: Consent was verified and timeout performed. Appropriate imaging studies were reviewed prior to the procedure. Patient was placed in a seated position and limited thoracic ultrasound was performed of the right chest. See separate imaging. Appropriate site above the diaphragm for thoracentesis was selected. The skin was prepped and draped in normal sterile fashion. Lidocaine was used for local analgesia. Fluid was aspirated via the finder needle. A small skin fatoumata was made with the scalpel and the catheter over the needle apparatus was advanced over the rib into the pleural space. Using the syringe one-way valve system, a total of 1750 mL's of serous/yellow- tinged fluid was removed. The catheter was removed and observed to be intact. A sterile dressing was applied. Post procedure chest x-ray was ordered. Fluid was sent for labs, culture and cytology. Complications: None Blood loss: Less than 1 cc Coding CPT Codes Pulmonary/Thoracic - Pulmonary and Thoracic: 04766 Thoracentesis w imaging ([id number][place] [facility] [place] Pulmonary/Thoracic Procedure 1: Pulmonary and Thoracic: 83225 Thoracentesis w imaging
[2021-01-31] MEDS: CEFEPIME 2,000 MG in SYRINGE 0 ML IV SCH (15:54)
[2021-01-31 16:19] LABS: Total Protein Pleural Fluid 2.4 g/dl
[2021-01-31 16:34] LABS: Appearance Pleural Fluid CLEAR; Color Pleural Fluid YELLOW; Eosinophils, Fluid 0 %; Lymphocytes, Fluid 77 %; Mono,Macrophage,Mesothelial 19 %; Neutrophils, Fluid 4 %; RBC Pleural Fluid (A) < 3000 /uL; Source Pleural Fluid RIGHT LUNG; WBC Pleural Fluid (A) 488 /uL
[2021-01-31 16:43] LABS: Albumin Level 2.8 gm/dl (3.4-5.0); BUN Creatinine Ratio 15.9 (10-20); Bilirubin,Total 0.6 mg/dl (0.2-1); Est GFR (African American) 11.1; Est GFR (Non-African American) 9.6; Potassium 3.4 mmol/L (3.5-5.1); Total Protein 5.9 gm/dl (6.4-8.2)
[2021-01-31] MEDS: VENLAFAXINE HCL XR 37.5 MG CAPXR PO SCH (17:24)
[2021-01-31] MEDS: AMPICILLIN/SULBACTAM SOD 3,000 MG in 0.9 % SODIUM CHLORIDE 100 ML IV SCH (19:45)
--- NOTE | 2021-01-31 21:14 | Communication Note ---
Date of Service: January 31, 2021 Was informed at 1938 that patient had headache and if IV tylenol was available. Assessed patient at at 2044. Patient stated headache had almost completely resolved, but that he had 5/10 neck pain, worse w/ self-flexion. On exam, patient was mildly tender on palpation at cervical spine. I was unable to assess Kernig sign because patient's legs hurt at baseline and could not be lifted. Overall, my suspicion for meningitis is low because patient's headache resolved and mentation was unchanged from earlier today. I changed the priority of the MRI brain w/o contrast from routine to stat because of the above: unimproved dysarthria and tremors and new headache/neckpain.
[2021-01-31] MEDS: TAMSULOSIN HCL 0.4 MG CAP PO SCH (21:36)
[2021-01-31] MEDS: DONEPEZIL HCL 10 MG TAB PO SCH (21:36)
[2021-01-31] MEDS: FLUDROCORTISONE ACETATE 0.1 MG TAB PO SCH (21:37)
[2021-02-01] MEDS: INSULIN ASPART 100 UNITS/ML 3 ML PEN SC SCH ×5 (00:22→23:33)
[2021-02-01] MEDS: METOPROLOL TARTRATE 1 MG/ML VIAL IV SCH ×2 (03:42→07:21)
[2021-02-01 05:45] LABS: Partial Thromboplastin Ratio 1.1; Partial Thromboplastin Time 28.5 Seconds (21.0-31.0)
[2021-02-01 06:07] LABS: Basophils # (auto) 0.02 K/uL (0-0.2); Basophils % (auto) 0.2 %; Eosinophils # (auto) 0.14 K/uL (0-0.5); Eosinophils % (auto) 1.6 %; Hematocrit (blood only) 34.1 % (42-52); Hemoglobin 11.3 g/dL (14.0-18.0); Immature Granulocytes # (auto) 0.04 K/uL (0.00-0.02); Immature Granulocytes % (auto) 0.5 %; Lymphocytes # (auto) 1.94 K/uL (1.2-3.4); Lymphocytes % (auto) 21.9 %; Mean Corpuscular Hemoglobin 29.5 pg (25-34); Mean Corpuscular Hgb Conc 33.1 g/dL (32-36); Mean Platelet Volume 10.3 fL (7.4-10.4); Monocytes # (auto) 0.59 K/uL (0.11-0.59); Monocytes % (auto) 6.7 %; Neutrophils # (auto) 6.11 K/uL (1.4-6.5); Neutrophils % (auto) 69.1 %; Platelet Count 152 K/uL (130-400); RDW Coefficient of Variation 14.9 % (11.5-14.5); Red Blood Count 3.83 M/uL (4.7-6.1); White Blood Count 8.84 K/uL (4.8-10.8)
[2021-02-01] MEDS: HEPARIN SODIUM/DEXTROSE 25,000 UNITS/500 ML BAG IV SCH (06:11)
--- NOTE | 2021-02-01 06:12 | Hospitalist Progress Note ---
Date of Service February 01, 2021 Assessment & Plan (1) Bilateral pleural effusion: 80 y/o male w/ hx of CKD5, AFib on Eliquis, and hx of liver transplant (for PSC) who presented w/ 2 months of progressively worsening GUERRIER and fatigue. AMS on 02/01. altered mental status - new onset of generalized tremor/shaking, very noticeable at face. per patient's , she noticed dysarthria and tremor 2 days ago. this is not patient's baseline - slight dysarthria that may be secondary to tremor/shaking - A&Ox4, no focal neuro deficits. patient denies confusion. He had some generalized weakness earlier in the morning. - CT head did not show acute bleed or acute ischemic changes, but did show total opacification of R paranasal sinus. Repeat neuro exam performed and patient does not seem to have confusion, so did not order brain MRI - patient is at increased risk of stroke and VTE given his past medical hx and temporary hold of heparin drip while awaiting thoracentesis - no tachycardia or dyspnea, so less suggestive for PE - vbg unimpressive - the tremors are reminiscent of symptoms of hypocalcemia. ecg no acute changes or QT prolongation. ionized Ca was low at 0.84. repleted w/ 2g IV calcium gluconate followed by 1g - if no symptom improvement, will order MRI brain w/o contrast and consult neuro - considered metabolic encephalopathy - at risk because of CKD5 - ammonia level wnl - also consider drug-induced Parkinsonism since describes similar episode in past after taking gabapentin. Patient was given 1 tab of 100 mg gabapentin PRN on 01/29/21. Patient has also recently been started on amitriptyline 10 mg a few wks ago and had received 3 doses this admission. this has since been held. Patient is also on home venlafaxine 37.5 mg. - 02/01 patient's brought in her diary from 10/17/2020 and it mentions that patient had shakiness and decreased mobility after 3 days of gabapentin. - 02/01 noticeable improvement in patient's dysphasia. hypocalcemia - see above - 01/31 ionized calcium 0.84L. corrected calcium 8.0 (7.0 uncorrected). - 2g IV calcium gluconate ordered. assess clinically 1 hour later and did not see improvement in tremors or dysarthria - ordered additional 1g IV calcium gluconate. will reassess clinically - continued repletion on 02/01. patient's tremors are slightly milder at PM. dysphasia improving which may be from hypocalcemia or other causes acute dyspnea, in setting of new moderate bilateral pleural effusions - s/p 40 mg IV Lasix in ED. home regimen is 40 mg PO Lasix; Bumex 4 mg BID during this admission. - good symptom improvement s/p above and nebs - 01/29 echo: EF 55-60. Normal LV function. - blood cultures pending - pulmonology consulted; diagnostic/therapeutic thoracentesis planned for 01/31 - daily Is/Os and weights. ordered external urinary catheter on 01/30 for more accurate measurement - 02/01 1.4L in. 350 mL out. cumulative 5.8L in 3.4L out pleural effusion - more likely transudative than exudative per hx. pleural fluid labs after thoracentesis - will attempt diuresis. 4 mg BID IV bumex changed to 2 mg BID PO bumex on 01/30 per nephrology given creatinine bump and weight on 01/28 (74kg) to 01/29 (72.9kg) - s/p R thoracentesis on 01/31. pleural studies pending. - pleural studies suggestive of transudative effusion because meets 0/3 of Light's criteria r/o of pneumonia - 01/30 cxr: Unchanged right greater than left pleural effusions with bibasilar consolidation. - per cxr above and ct at admission, cannot exclude infectious process. given patient's immunosuppressed state and + MRSA nasal swab (01/28), will continue MRSA coverage. changed from vanc/zosyn to vanc/cefepime because of kidney function - 01/31 will switch from vanc/cefepime to Unasyn to cover for CAP and anaerobes. lower suspicion for MRSA despite + nasal swab - no leukocytosis - 02/01 cxr some new mild pulm edema on R. Small pleural effusions w/ progressive bibailar opacities infiltrated IV site at RUE 01/30 - removed both RUE peripheral IV sites - established peripheral IV access at BLE near ankles - preserve access of LUE chronically, RUE temporarily afib on chronic anticoagulation - home apixaban 2.5 mg BID held this admission. - home ASA held - continue rate control w/ Toprol, renal dose adjustment as needed - 01/31 after thoracentesis, restarted heparin drip pericardial effusion - per 01/29 echo, small-moderate, stable chronic kidney disease stage 5 - Cr has been mid-upper 4s in past several months. 01/29 4.69. 01/30 4.95. 01/31 5.30 and 5.21. 02/01 4.99 - egfr this admission hovering between 10 and 11. 01/29->01/02 egfr 10.9->10.2, not drastic decrease - nephro consulted. recs: diuresis as above. L arm precaution for future AV fist becki - 01/30 added low sodium (<2g) to diet order - 01/31 nephro started gentle IVF. stopped diuresis. - 02/01 stopped IVF status post liver transplant - liver enzymes normal on admission - Continue home Prograf, prednisone, Ursodiol, - removed prn tylenol from orders - budget coordinator Maryan Tijerina [phone] compression fracture - at L1 per CT - may have contributed to some of patient's chest stiffness symptom, though he was stiff diffusely - considered nasal calcitonin for analgesia, but will defer at this time because pain is tolerable. memory impairment: - at baseline, per - continue donepezil 10 mg - Avoid sedating agents and benzos as possible - fall risk protocol Type 2 diabetes mellitus, on insulin - A1C 7.6 01/29 - SSI+lantus indra, pharmacy consulted. Hypothyroidism: - stable w/ normal T4 Obstructive sleep apnea: - using home cpap FEN/GI: speech eval completed. pureed, nectar thick diet. no maintenance iv fluids code: full ppx: heparin drip restarted after thoracentesis dispo: med surg w/ tele. ordered PT/OT evals. (2) Stage 5 chronic kidney disease not on chronic dialysis: (3) Acute dyspnea: (4) Obstructive sleep apnea: (5) PAF (paroxysmal atrial fibrillation): (6) Type 2 diabetes mellitus: (7) Compression fracture: (8) IV infiltration: Admission and Anticipated Discharge Date Admission Date: January 28, 2021 Supervising Physician Co-Signing Physician Notes Patient seen and examined with PGY-1 Dr. Hernandez. Agree with history, exam findings, assessment and plan of care as outlined. 80 year old male with history of CKD stage 4, Afib (AC with Eliquis), and liver transplant for PSC admitted with progressive dyspnea on exertion and fatigue. He continues to be tremulous, although per seems to be a bit better when compared to yesterday. Has not had any loose stools since yesterday. Some nausea, but not coughing with eating. Vital signs and nursing notes reviewed. Heart with irregular rhythm. Abdomen with good bowel sounds. Soft, non-tender, non-distended. Cranial nerves symmetric and in tact. He is able to handle his secretions. Tremor in the head and hands. 1. Dysphagia. MRI without acute or subacute stroke. Appreciate speech recommendations (nectar thick liquids, pureed, aspiration precautions). Video swallow ordered at rec of neurology. 2. Hypocalcemia. Repleting. May be contributing to his tremulousness noted this AM. Started calcitriol per renal. 3. Tremor. New. ?secondary to PRN gabapentin or elavil--both have been discontinued. Checking tacrolimus level, repeat TSH. Also decreased effexor to 25mg. ? uremia given very low eGFR. Appreciate neurology recommendations. 4. Acute dyspnea with new bilateral pleural effusion. Hold diuresis since he is intravascularly dry. At home, takes 40mg PO Lasix. TTE with preserved EF of 55-60% and normal LV function. Pleural fluid is transudative. Appreciate pulm and nephrology recommendations 5. Pleural effusion. s/p thoracentesis today. Removed 1750mL from the right lung. Pending cytology, labs and gram stain. 6. ?Pneumonia but unable to rule out definitively given concomitant pleural effusions. Given immune suppressed status, empirically treating for bacterial pneumonia. Coverage for aspiration. De-escalated to Unasyn. 7. Afib. Rate controlled. Holding apixaban in anticipation of thoracentesis. On heparin gtt. Continue home metoprolol. 8. CKD. Stable, but very low eGFR. No blood draws or blood pressures on left armpossible site for fistula. Appreciate nephrology recommendations. 9. DM. Appreciate glycemic consult recommendations. 10. Hx of liver transplant. Continue home prograf, pred, and ursodiol. Dispo: pending clinical improvement. Subjective ~1900 yesterday, patient had headache, since resolved. No acute events over night. No reports of diarrhea. Patient denies confusion. He still has the generalized tremors. He has no headache. No neck pain at rest. He denies breathing complaints. He otherwise feels ok. He inquired about missing his Prograf. He states that his liver transplant was done at [facility] many years ago and has not seen them in many years. He does have a budget coordinator but does not know the information and stated that his would know. + some nausea in PM after meal (pureed). Review of Systems Review of Systems: Constitutional: Denies fever, chills Eyes: Denies blurry vision, vision changes Cardiovascular: Denies chest pain, palpitations Respiratory: Denies shortness of breath Gastrointestinal: Denies abdominal pain, nausea, vomiting, constipation, diarrhea Genitourinary: Denies urinary symptoms including dysuria Musculoskeletal: Denies muscle pain Neurological: Denies headache, focal weakness Physical Exam Physical Exam: General: A&Ox4 to person, place, time, and context (he knew he was at [facility] initially for shortness of breath). NAD. Cooperative. HEENT: Atraumatic, normocephalic. EOMI. PERRL. Pulm: CTAB anteriorly. No respiratory distress. He is able to take full deep breaths w/ prompting, but otherwise is taking shallower breaths because of his tremoring. Cardiac: RRR, -mrg. Abdominal: Nontender, nondistended, soft. Neuro: CN II-XII intact. No facial droop or asymmetry. BUE and BLE sensation and motor strength intact. + generalized tremor most noticeable at face/jaw. dysphasia is much improved. words are sharper/clearer. Results & Data Results & Data ([facility]) Vital Signs (Past 12 Hours) Vital Signs Temp Pulse Pulse Resp BP BP BP 02/01/21 04:00 36.8 C 108 H 18 151/93 H 02/01/21 03:42 129 H 159/100 H 01/31/21 23:40 162/86 H 01/31/21 23:00 37 C 123 H 19 160/103 H 01/31/21 19:28 36.6 C 105 H 20 152/98 H Pulse Ox 02/01/21 04:00 95 02/01/21 03:42 01/31/21 23:40 01/31/21 23:00 91 01/31/21 19:28 96 Resident Activity Tracking Resident Involvement: Resident Care Provided Care Provided: Adult Hospital Medicine (1) Type 2 diabetes mellitus Chronic kidney disease stage: stage 4 (severe) Diabetes mellitus complication detail: with chronic kidney disease Diabetes mellitus complication status: with kidney complications Diabetes mellitus intermediate insulin use: with buttermaker helper use Qualified Code(s): E11.22 - Type 2 diabetes mellitus with diabetic chronic kidney disease; N18.4 - Chronic kidney disease, stage 4 (severe); Z79.4 - buttermaker helper (current) use of insulin
[2021-02-01 06:36] LABS: Albumin Globulin Ratio 0.8 (0.9-2); Albumin Level 2.9 gm/dl (3.4-5.0); BUN Creatinine Ratio 15.6 (10-20); Bilirubin,Total 0.6 mg/dl (0.2-1); Calcium 7.1 mg/dl (8.5-10.1); Creatinine Clr Calc Pharmacy 12.6 ml/min; Est GFR (African American) 11.7; Est GFR (Non-African American) 10.1; Globulin 3.5 gm/dl (2.5-4.0); Phosphorus 3.8 mg/dl (2.5-4.9); Potassium 3.6 mmol/L (3.5-5.1); Total Protein 6.4 gm/dl (6.4-8.2)
--- NOTE | 2021-02-01 08:24 | Magnetic Resonance Report ---
MR brain wo con HISTORY: 80 years-old Male dysarthria, generalized tremor, headache,neckpain acute strokelike sympto ms COMPARISON: Brain MRI 08/08/2020, head CT 01/31/2021 TECHNIQUE: Multiplanar multisequence MRI of the brain was obtained without the use of IV contrast. FINDINGS: Motion degraded exam. Student Driving Instructor localizer images demonstrate no gross extracranial abnormality. No restri cted diffusion to suggest acute or subacute infarct. No acute intracranial hemorrhage, midline shift, abnormal extra-axial collection, hydrocephalus or intracranial mass. Age-related involutional change s with extensive T2/FLAIR hyperintensities throughout the white matter. Cerebral venous sinuses and m ajor arterial flow voids are patent. Trace left mastoid effusion. Near complete opacification right m axillary sinus with volume loss. Tiny associated air-fluid level suggests acute on chronic sinusitis. The orbits, skull and soft tissues are unremarkable. IMPRESSION: 1. No acute intracranial abnormalities, specifically there is no evidence of acute or subacute infarc t. 2. Age-related involutional changes with chronic microvascular ischemic disease. ACT 112: Negative or not required by law. The above report was generated using voice recognition software. It may contain grammatical, syntax o r spelling errors. Electronically signed by: Delfin Thurman M.D. 02/01/2021 8:23 AM
[2021-02-01] MEDS: TACROLIMUS 1 MG CAP PO SCH ×3 (08:33→20:50)
[2021-02-01] MEDS: BUDESONIDE EC 3 MG CAP PO SCH ×2 (08:33→11:19)
[2021-02-01] MEDS: CALCITRIOL 0.25 MCG CAPSULE PO SCH ×2 (08:33→11:23)
[2021-02-01] MEDS: ursodioL 300 MG CAP PO SCH ×3 (08:33→20:49)
[2021-02-01] MEDS: predniSONE 5 MG TAB PO SCH ×2 (08:33→11:16)
[2021-02-01] MEDS ORDERED: INSULIN GLARGINE SOLOSTAR 100 UNITS/ML 3 ML PEN SC SCH (09:00)
--- NOTE | 2021-02-01 09:54 | XRay Report ---
XR chest 1V portable HISTORY: 80 years-old Male pulmonary edema acute shortness of breath with pulmonary edema COMPARISON: Chest radiograph 01/31/2021 TECHNIQUE: Portable AP view of the chest FINDINGS: Cardiomegaly. Pulmonary vascular congestion with mild interstitial coarsening. Small pleural effusion s with mildly progressed bibasilar opacities. No pneumothorax. Bones appear grossly intact. IMPRESSION: 1. Cardiomegaly with interval development of mild pulmonary edema. 2. Small pleural effusions with progressive bibasilar opacities suggestive of atelectasis versus pneu monitis. ACT 112: Negative or not required by law. The above report was generated using voice recognition software. It may contain grammatical, syntax o r spelling errors. Electronically signed by: Delfin Thurman M.D. 02/01/2021 9:53 AM
--- NOTE | 2021-02-01 11:00 | Neurology Consultation ---
Date of Consultation February 01, 2021 Assessment & Plan (1) Stage 5 chronic kidney disease not on chronic dialysis: (2) Secondary hyperparathyroidism of renal origin: (3) Memory impairment: (4) Liver transplant status: (5) Tremor: (6) AMS (altered mental status): Lawrence Herrera is an 80 yo man w/ PMH of CKDV not on dialysis, CHF, memory impairment, h/o liver transplant on tacrolimus, pAFib on apixaban, DM, HTN, known lumbar spinal stenosis, and orthostatic hypotension on prednisone/flu drocortisone who initially p/t [facility] with worsening SOB and GUERRIER, found to have stable known AFib on EKG, bilateral pleural effusions (R>L), stable pericardial effusion and possible atelectasis on CXR. Neurology consulted for AMS c/b tremors and swallowing difficulties. # AMS c/b tremor and swallowing difficulties: suspect that this is mainly negative myoclonus related to his underlying CKDV, but cannot r/o component of tremor 2/2 tacrolimus. Does have known underlying MCI that is currently being worked up as an outpatient so suspect that he may have some level of delirium currently complicating the picture. - would re-check tacrolimus level and consider changing to an alternative immunosuppressant such as cyclosporine or everolimus - would consider starting HD more urgently as discussed in renal note to see if this helps with symptoms - agree with formal speech evaluation with video swallow to determine safety of PO intake - does have a pseudobulbar effect on examination (began crying but could not explain why he was crying). Would continue venlafaxine but this can also technically worsen tremors (might consider decreasing to 25mg daily to see if any improvement in tremor) - delirium precautions, lights on during the day/off at night, frequent re- orientation, try to have pictures of family/loved ones in the room, OOB to chair for meals Thank you for this interesting consult. Plan of care discussed with primary team. Please call or text with questions. History of Present Illness Attending Physician: Eguenio Langley DO History of Present Illness Lawrence Herrera is an 80 yo man w/ PMH of CKDV not on dialysis, CHF, memory impai rment, h/o liver transplant on tacrolimus, pAFib on apixaban, DM, HTN, known lumbar spinal stenosis, and orthostatic hypotension on prednisone/fludrocortisone who initially p/t [facility] with worsening SOB and GUERRIER, found to have stable known AFib on EKG, bilateral pleural effusions (R>L), stable pericardial effusion and possible atelectasis on CXR. Neurology consulted for AMS c/b tremors and swallowing difficulties. Since his admission, he has been noted to have ongoing SOB/GUERRIER. He was noted to be more confused the morning of 01/31, prompting diuresis to be held and thoracentesis performed. Possible plan to place TDC and start dialysis more emergently if SOB does not improve with thoracentesis. Was noted to have been started on amitriptyline as an outpatient which was held on 01/31. Labs this mo rning notable for WBC 8.4, hemoglobin 11.3, platelets 152, VBG 7.4 //, sodium 140, potassium 3.6, BUN 78, creatinine 4.99, GFR 10.1, glucose 151, calcium low at 7.1, phosphorus 3.8, LFTs within normal, ammonia 11.5, albumin low 2.9, UA no infection, Covid negative, ANCA level 21, tacrolimus level 2.6 (low). Recent pertinent blood work includes B12 608 and TSH elevated at 5.65 with normal free T4. Imaging independently reviewed. CT head shows no hemorrhage or hypodensity, mild bibasilar calcifications likely age-related. MRI brain shows no acute infarct, moderate SVID, mild generalized atrophy with ex vacuo dilation (imaging is slightly degraded). Most recent chest x-ray shows cardiomegaly with interval development of mild pulmonary edema, small pleural effusions with progressive bibasilar opacities suggestive of atelectasis versus pneumonitis. On examination, he reports that he has been having issues with his arms jumping up and down, as well as difficulty swallowing. He notes having issues understanding people that is more than just not being able to hear them. Does have noticeable negative myoclonus on exam mainly in BUEs, but also a mild left sided facial twitch that is reportable new for him. Allergies Allergy/AdvReac Type Severity Reaction Status Date / Time aspirin AdvReac Unknown high doses Verified 01/28/21 19:57 contrindicated d/t hx liver transplant ibuprofen AdvReac Unknown not to Verified 01/28/21 19:57 take due to transplant Home Medications Medication Instructions Recorded Confirmed Type calcium carbonate [Calcium 600] 600 mg PO BID 01/09/19 01/28/21 History prednisone 5 mg PO QAM 01/09/19 01/28/21 History ursodiol 300 mg PO BID 01/09/19 01/28/21 History [facility] 1 cap PO QAM 07/10/19 01/28/21 History lidocaine 5 % topical patch 1 patch TOP DAILY PRN 08/10/19 01/28/21 History polyethylene glycol 3350 17 gram 17 gm PO DAILY PRN 08/10/19 01/28/21 History oral powder packet aspirin 81 mg PO QAM 03/17/20 01/28/21 History hydrocortisone 2.5 % topical cream 1 appln [facility] DAILY PRN #28.35 gm 03/18/20 01/28/21 Rx with perineal applicator Prolia 60 mg/mL subcutaneous 60 mg SUBCUT Q6MO #1 ml NS 07/22/20 01/28/21 Rx syringe apixaban 2.5 mg tablet 2.5 mg PO BID #60 tab 08/21/20 01/28/21 Rx menthol 0.44 %-zinc oxide 20.6 % 1 applic TOPICAL QID PRN #113 g 09/02/20 01/28/21 Rx topical ointment OneTouch Delica Lancets 33 gauge #300 ea NS 09/12/20 01/16/21 Rx OneTouch Verio test strips #300 ea NS 09/12/20 01/16/21 Rx meclizine 25 mg tablet 25 mg PO DAILY PRN #30 tab 10/09/20 01/28/21 Rx venlafaxine 37.5 mg 37.5 mg PO DAILY@1700 #30 cap 10/09/20 01/28/21 Rx capsule,extended release 24 hr calcitriol 0.5 mcg capsule 0.5 mcg PO QAM 90 Days #90 cap 10/10/20 01/28/21 Rx Tresiba FlexTouch U-100 11 unit SUBCUT QAM 11/21/20 01/28/21 History donepezil 10 mg PO HS 11/21/20 01/28/21 History dutasteride 0.5 mg PO QDL 11/21/20 01/28/21 History fludrocortisone 0.1 mg PO QPM 11/21/20 01/28/21 History tacrolimus [Prograf] 2 mg PO BID 11/21/20 01/28/21 History tamsulosin [Flomax] 0.4 mg PO QPM 11/21/20 01/28/21 History budesonide 3 mg 9 mg PO DAILY #90 ea 11/28/20 01/28/21 Rx capsule,delayed,extended release metoprolol succinate 50 mg 100 mg PO BID #120 tab 01/01/21 01/28/21 Rx tablet,extended release 24 hr cyanocobalamin (vitamin B-12) 1,000 mcg PO DAILY #30 cap 01/09/21 01/28/21 Rx 1,000 mcg capsule insulin aspart U-100 100 unit/mL See Rx Instructions SUBCUT .COMPLEX 01/09/21 01/28/21 History (3 mL) subcutaneous pen amitriptyline 10 mg tablet 10 mg PO .qhs #30 tab 01/16/21 01/28/21 Rx furosemide 20 mg tablet 40 mg PO QAM #90 tab 01/16/21 01/28/21 Rx acetaminophen 500 mg PO .WITH LUNCH PRN 01/28/21 01/28/21 History acetaminophen 650 mg PO BID PRN 01/28/21 01/28/21 History gabapentin 100 mg PO TID PRN 01/28/21 01/28/21 History Patient History Medical History Anemia Atrial fibrillation dx 08/2020 - on Eliquis -- follows with Dr. Madrigal Bright red rectal bleeding Cancer SKIN CANCER-BASAL CELL/SQUAMOUS CHF (congestive heart failure) CKD (chronic kidney disease) Stage 4 - Follows with Dr. Rider Compression fracture Depression, major, recurrent, in remission Diarrhea Diverticular disease DM type 2 (diabetes mellitus, type 2) IDDM Hypertension Pancreatitis HX Pericardial effusion Pericardial effusion chronic Sclerosing cholangitis S/P liver transplant 1994 Secondary hyperparathyroidism of renal origin Sleep apnea BiPAP Stage 5 chronic kidney disease not on chronic dialysis Vitamin D deficiency Surgical History Fusion of spine LUMBAR H/O exploratory laparotomy History of appendectomy History of cholecystectomy History of colonoscopy History of esophagogastroduodenoscopy (EGD) History of herniorrhaphy X 2 History of liver biopsy History of oral surgery Posts implanted in mandible for bottom denture History of tooth extraction Transplant LIVER 1994 IN [place] ([facility]) Family History Father Family history of diabetes mellitus Myocardial infarction Heart failure Mother Dementia Denies family history of Ovarian cancer Prostate cancer Breast cancer Colorectal cancer Social History Smoking Status: Former smoker Tobacco Type: Cigarettes Cigarettes Per Day: QUIT 1971; Second Hand Exposure: No; Hx Alcohol Use: No Hx Substance Use: No Preferred Language: Colombian Communication Ability: Effective Visual Impairment: Limited Cranberry Sorter Required: No Beliefs That Will Affect Care: None marital status: Current Living Situation: Spouse current occupational status: retired Feels Safe at Home: Yes Dental Care, Regularly: Yes Seatbelt Use: always Sunscreen Use: Yes Assistive Devices: CPAP, Denture - Upper and Denture - Lower Review of Systems Review of Systems: 10 point review of systems completed and negative except as in HPI. Exam (Neuro) Physical Exam: General Exam: GEN: NAD, sitting in bed. HEENT: No conjunctival injection, no rhinorrhea. CV: RRR, no significant peripheral edema aside from right forearm PULM: Nonlabored respirations on room air. Neuro Exam: MS: Awake and Alert. Oriented to person, place, and month/year. Speech fluent and appropriate, +dysarthria, no paraphasic errors. Language intact including naming, comprehension, repetition. Cognition and memory mildly impaired. Attention intact. No neglect. CN: Visual stoddard full. No extinction to double simultaneous stimuli. Unable to visualize fundi on fundoscopic exam. PERRLA OU. EOMI without nystagmus. Facial sensation intact to LT. Facial muscles full and symmetric. Hearing impaired to conversation. Shoulder shrug normal. Tongue midline. MOTOR: Decreased muscle bulk, normal tone. No pronator drift. BUE strength 4+/5 at deltoids, 5-/5 biceps, triceps bilaterally. BLE strength 5-/5 at iliopsoas, hamstrings, quadriceps, tibialis anterior, and gastrocnemius bilaterally. +negative myoclonus on outstretch. REFLEXES: 1+ at biceps, triceps, brachioradialis, absent patella and absent Achilles bilaterally. Flexor plantar responses bilaterally. SENSORY: Intact to LT without extinction to double simultaneous stimuli. Vibration diminished in BLEs up to the knees. COORDINATION: Mild dysmetria on [id number] bilaterally. GAIT: deferred given physical status Results & Data ([facility]) Vital Signs (Past 12 Hours) Vital Signs Temp Pulse Pulse Resp BP BP BP 02/01/21 07:38 36.2 C L 122 H 20 158/94 H 02/01/21 07:21 94/65 L 02/01/21 07:00 119 H 02/01/21 04:00 36.8 C 108 H 18 151/93 H 02/01/21 03:42 129 H 159/100 H 01/31/21 23:40 162/86 H 01/31/21 23:00 37 C 123 H 19 BP Pulse Ox 02/01/21 07:38 96 02/01/21 07:21 02/01/21 07:00 02/01/21 04:00 95 02/01/21 03:42 01/31/21 23:40 01/31/21 23:00 160/103 H 91 PG Care Time/CCT Total # of Minutes Spent Total Time Spent with Patient: Total time spent is greater than 50% in coordination of care (as documented) at patient's floor/unit and/or counseling patient: 60 Coding Level of Care Code 21191 Initial Inpt Care Lvl 3 Diagnoses Stage 5 chronic kidney disease not on chronic dialysis N18.5 Secondary hyperparathyroidism of renal origin N25.81 Memory impairment R41.3 Liver transplant status Z94.4 Tremor R25.1 AMS (altered mental status) R41.82
[2021-02-01] MEDS: DUTASTERIDE PO SCH (11:26)
--- NOTE | 2021-02-01 11:35 | Pharmacy Report ---
Pharmacy Glycemic Short Note 2 - Date of Service February 01, 2021 - Glycemic Short BSG Results (Last 24 hours): 01/31/21 01/31/21 01/31/21 15:55 15:55 16:53 Glucose Cancelled 175 H POC Glucose 186 H 01/31/21 02/01/21 02/01/21 20:25 00:06 05:21 Glucose 148 H POC Glucose 164 H 191 H 02/01/21 06:01 Glucose POC Glucose 151 H OUTPATIENT ANTIDIABETIC REGIMEN: * Tresiba 11 units SC AM * Novolog 7-9 units SC breakfast, 5-7 units SC lunch, 3-4 units dinner * HbA1c = 7.6% (01/29/21) ASSESSMENT: 02/01 * Pt has received 11 units of insulin over the past 24hrs * 5 units of basal with Lantus * 6 units of bolus with NovoLog * BSGs [phone] mg/dl * Pt NPO yesterday for thoracentesis. Lantus dose decreased to 5 units per provider and NovoLog held in AM. * Pt remains NPO this AM. BSGs elevated yesterday therefore will increase basal from 5 units to 8units. Will resume full dosing (11 units) when diet resumed. * Heparin infusion restarted - mixed in dextrose, this may cause elevations in BSGs. Will monitor. 01/30: * Patient received a total of 23 units of insulin yesterday * 9 units bolus + 14 units basal * BSGs were acceptable: [phone] mg/dL * Fasting BSG worsened today to 168 mg/dL * Will increase Lantus to match home Tresiba dose * Novolog was tightened yesterday at lunch, no change today * Patient remains on Prednisone 5 mg PO AM and Florinef 0.1 mg PO PM 01/29: * 80 yo M admitted secondary to shortness of breath. Pharmacy has been consulted for assistance with inpatient glycemic management. * Patient is on chronic steroids at home which we will continue here * Prednisone 5 mg PO AM * Fludrocortisone 0.1 mg PO PM * Will start with a 20% reduction in home Lantus dose * Will start with Novolog based on weight/stress of 2 PLAN FOR INPATIENT GLYCEMIC CONTROL: * Basal insulin - increased * Lantus 8 units SQ AM x 1 this AM for NPO * Resume 11 units SQ AM when diet advanced * Bolus insulin - no change * NovoLog per scale ACHS or Q6hrs while NPO * Goal Range: Low 110 mg/dL - High 140 mg/dL * Correction Factor: 25 mg/dL/unit * Nutritional / Prandial insulin per carb ratio of 1 unit per 8 grams CHO consumed PLAN FOR DISCHARGE: * HbA1c is 7.6% from this admission which has increased from 7.1% in August 2020. This is still below his goal HbA1c of 8%. * Continue with outpatient regimen as long as patient is not experiencing any hypoglycemia at home. Report any persistent highs/lows to outpatient provider.
[2021-02-01] MEDS: METOPROLOL SUCC 50MG EXT REL TAB PO SCH ×2 (11:44→20:49)
[2021-02-01 12:31] LABS: Partial Thromboplastin Ratio 2.4
[2021-02-01 12:33] LABS: Partial Thromboplastin Time 63.6 Seconds (21.0-31.0)
--- NOTE | 2021-02-01 12:39 | Pulmonology Progress Note ---
Date of Service February 01, 2021 Assessment & Plan (1) Dyspnea on minimal exertion: (2) Bilateral pleural effusion: . CT chest 01/28/2021 personally reviewed: Bilateral pleural effusion more on the right side. No mediastinal adenopathy, mild pericardial effusion. --Bilateral pleural effusion BNP greater than 12,000 Creatinine 4.5 Influenza A/B negative, COVID-19 PCR negative Procalcitonin 1.03 The etiology is most likely fluid overload with underlying CKD Patient on apixaban last dose being on 01/28/2021. S/p thoracentesis 01/31/2021, transudative as per lights criteria, mostly lymphocytic Fluid: LDH: 70, total protein 2.4, pH 7.5, glucose 160 Serum: LDH 187, total protein 6.4 --History of liver transplant On tacrolimus and chronic 5 mg prednisone --Pulmonary hypertension Likely type II RVSP 30-40 mmHg Plan: Transudative fluid on the right side. Likely coming from the underlying CKD Cultures have been negative to date. I highly doubt this is infectious etiology. Would recommend discontinuing antibiotics Can resume apixaban. No further recommendations from pulmonary perspective. Call with any questions. Please note the above document was generated using voice recognition software. It may contain grammatical, syntax or spelling errors.Any formal questions or concerns about the content, text or information contained within the body of this dictation should be directly addressed to the provider for clarification. (3) CKD (chronic kidney disease): Chronic kidney disease stage: stage 4 (severe) Qualified Code(s): N18.4 - Chronic kidney disease, stage 4 (severe) (4) Pulmonary hypertension: Admission and Anticipated Discharge Date Admission Date: January 28, 2021 Subjective Patient seen and examined at bedside. No acute distress, no adverse events ove rnight. Patient has less jerky movements today compared to yesterday. Shortness of breath is better. He says that he did not find any significant difference after thoracentesis. Denies any chest pain, no dizziness, no nausea, no vomiting. Has been n.p.o. as he had possible aspiration event yesterday. Review of Systems Review of Systems: All systems reviewed & are unremarkable except as noted in Subjective Physical Exam Physical Exam: Constitutional: No acute distress HEENT: EOMI, PERRLA, hard to hear Respiratory system: Decreased air entry bilaterally, no wheeze, no rhonchi, mild crackles bilateral lower lobes CVS: S1-S2 positive, no murmurs or gallops, irregular rhythm Abdomen: Soft, nontender, nondistended, positive bowel sounds x4 Extremities: +2 pulses bilaterally radialis/ dorsalis pedis, no cyanosis, +1 edema right lower extremity, ecchymosis appreciated bilaterally on the dorsal surfaces Neuro: Awake alert oriented x3 Psych: Normal mood and affect G/U: No Petersen Skin: no rashes, warm and dry Lymphatic: no cervical or axillary lymphadenopathy Results & Data Results & Data ([facility]) Vital Signs (Past 12 Hours) Vital Signs Temp Pulse Pulse Resp BP BP BP 02/01/21 11:08 37.0 C 114 H 20 178/90 H 02/01/21 07:38 36.2 C L 122 H 20 158/94 H 02/01/21 07:21 94/65 L 02/01/21 07:00 119 H 02/01/21 04:00 36.8 C 108 H 18 151/93 H 02/01/21 03:42 129 H 159/100 H Pulse Ox 02/01/21 11:08 92 02/01/21 07:38 96 02/01/21 07:21 02/01/21 07:00 02/01/21 04:00 95 02/01/21 03:42 02/01/21 05:21 02/01/21 05:21 PG Care Time/CCT Total # of Minutes Spent Total Time Spent with Patient: Total time spent is greater than 50% in coordination of care (as documented) at patient's floor/unit and/or counseling patient: Coding Level of Care Code 71884 Subseq Hosp Care Lvl 2 Diagnoses Dyspnea on minimal exertion R06.00 Bilateral pleural effusion J90 CKD (chronic kidney disease) N18.4 Chronic kidney disease stage: stage 4 (severe) Pulmonary hypertension I27.20
[2021-02-01] MEDS ORDERED: CALCIUM GLUCONATE 10% 2,000 MG in SODIUM CHLORIDE 0.9% 50 ML IV ONE (12:45)
--- NOTE | 2021-02-01 13:51 | Nephrology Progress Note ---
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 Baseline creatinine ~4.5 mg/dL. No emergent indication for HD at this time. Lawrence is hoping to delay [employer] until AVF placement currently scheduled for February with Dr. Otero. Dr. Otero is on vacation until February 16. Non-oliguric. Urine output acceptable. Electrolytes acceptable. Potassium improved. Diuretics have been held to encourage increased EAV. Lawrence is currently NPO due to concern for aspiration. Will continue to hold diuretics for now. Thoracentesis performed yesterday. Difficulty managing volume status given advanced kidney dysfunction discussed in detail with Lawrence and his today. Left arm nephrology precaution for future AV fistula placement. Unfortunately, if clinical condition does not improve may require TDC and emergent start. Monitor as inpatient for now. Prognosis is guarded. Document I/O's and repeat metabolic profile tomorrow AM. (2) Bilateral pleural effusion: Thoracentesis performed yesterday. Transudative by Light's criteria. (3) Secondary hyperparathyroidism of renal origin: Calcitriol increased to 1 mcg QAM. Serum calcium remains slightly low. Additional 2 grams IV calcium gluconate provided today. (4) Anemia: Chronic, stable. BENNY therapy deferred for Hgb >10. (5) Hypertension: Oral medications to be provided or switched to IV. Will monitor. Admission and Anticipated Discharge Date Admission Date: January 28, 2021 Subjective Lawrence remains tremulous. He is very weak and continues to have difficulty swallowing. PO medications had been held this AM and yesterday. Thoracentesis with net 1.7 L drained yesterday without complications. Dyspnea has improved. No fevers or chills. Lawrence also denied chest pain or palpitations. He continues to report difficulty with word finding. MRI obtained this AM. Neurology consultation pending. I also spoke to Lawrence's (Dhara) who expressed concerns that Lawrence continues to decline in overall health despite improvement in his breathing. Lawrence and I discussed his current health status and personal goals in detail this morning. He continues to defer to his (Dhara) in all decisions. He remains a full code but he also states that he does not want to be a vegetable. Lawrence becomes very emotional discussing end of life issues. Dhara is equally emotional in this regard. Dhara told me that Lawrence has said that he feels like he is dying several times at home. She is not ready to discuss this. Dhara hop es that Lawrence will regain sufficient strength to be able to work on his flower gardens at home this spring. She also admits that he has not had the ability to do this in the past year. Dhara does not want Lawrence to go to a fdc. Lawrence has adamantly stated that he would want SNF for himself multiple times to me in the past. They both remain reluctant to start dialysis but are resolved to HD if needed. Dhara also expressed understanding that the burden of dialysis may be too much for Lawrence. She states that she does not want him to suffer and she knows that his needs will increase with dialysis. Dhara states that she does not want to talk about hospice and asked that palliative care not be consulted at this time. She has met with palliative care in the past. Review of Systems Review of Systems: All systems reviewed & are unremarkable except as noted in HPI & below Physical Exam Constitutional: + thin and + frail appearing Eyes: + anicteric sclerae; no corneal abnormality ENMT: Ears: + hearing impairment Mouth: + dry oral mucous membranes Neck: normal visual inspection and trachea midline Respiratory: normal respiratory effort Auscultation: + diminished lung sounds; no rales Cardiovascular: Rate/Rhythm: + tachycardic and + irregularly irregular Heart Sounds: normal S1 and normal S2 Vessels: + JVD Extremities: no edema Gastrointestinal (Abdomen): Percussion/Palpation: abdomen soft; abdomen nontender Musculoskeletal: Extremities: + cyanosis; no clubbing Skin: + turgor decreased and + ecchymosis Neurologic: awake Speech / Cognition: no expressive aphasia Motor/Sensory: + tremor and + fasciculations Psychiatric: Orientation: alert and oriented x 3 Results & Data ([facility]) Vital Signs (Past 12 Hours) Vital Signs Temp Pulse Pulse Resp BP BP BP 02/01/21 11:08 37.0 C 114 H 20 178/90 H 02/01/21 07:38 36.2 C L 122 H 20 158/94 H 02/01/21 07:21 94/65 L 02/01/21 07:00 119 H 02/01/21 04:00 36.8 C 108 H 18 151/93 H 02/01/21 03:42 129 H 159/100 H Pulse Ox 02/01/21 11:08 92 02/01/21 07:38 96 02/01/21 07:21 02/01/21 07:00 02/01/21 04:00 95 02/01/21 03:42 Laboratory Results Laboratory Results - last 24 hr 01/31/21 01/31/21 01/31/21 15:55 15:55 15:55 WBC RBC Hgb Hct MCV MCH MCHC RDW Std Deviation RDW Coeff of Penelope Plt Count MPV Immature Gran % (Auto) Neut % (Auto) Lymph % (Auto) [place] % (Auto) Eos % (Auto) Baso % (Auto) Neut # (Auto) Lymph # (Auto) [place] # (Auto) Eos # (Auto) Baso # (Auto) Immature Gran # (Auto) APTT PTT Ratio Sodium Cancelled 139 Potassium Cancelled 3.4 L Chloride Cancelled 104 Carbon Dioxide Cancelled 27 Anion Gap Cancelled 8.0 BUN Cancelled 83 H Creatinine Cancelled 5.21 H* Est Cr Clr Drug Dosing Cancelled 12.0 Est GFR ( Amer) Cancelled 11.1 Est GFR (Non-Af Amer) Cancelled 9.6 BUN/Creatinine Ratio Cancelled 15.9 Glucose Cancelled 175 H POC Glucose Calcium Cancelled 7.0 L Ionized Calcium Phosphorus Cancelled 4.0 Total Bilirubin 0.6 AST ALT Alkaline Phosphatase Lactate Dehydrogenase 207 Total Protein 5.9 L Albumin Cancelled 2.8 L Globulin Albumin/Globulin Ratio Fluid Neutrophils % Fluid Lymphocytes % Fluid Eosinophils % Fluid Meso/Macro/[place] % Fluid Comment Pleural Fluid Source Pleural Color Pleural Appearance Pleural pH Pleural WBC Pleural RBC Pleural Total Protein Pleural LDH Pleural Glucose Pleural Amylase Pleural Cholesterol 01/31/21 01/31/21 01/31/21 16:53 20:25 Unknown WBC RBC Hgb Hct MCV MCH MCHC RDW Std Deviation RDW Coeff of Penelope Plt Count MPV Immature Gran % (Auto) Neut % (Auto) Lymph % (Auto) [place] % (Auto) Eos % (Auto) Baso % (Auto) Neut # (Auto) Lymph # (Auto) [place] # (Auto) Eos # (Auto) Baso # (Auto) Immature Gran # (Auto) APTT PTT Ratio Sodium Potassium Chloride Carbon Dioxide Anion Gap BUN Creatinine Est Cr Clr Drug Dosing Est GFR ( Amer) Est GFR (Non-Af Amer) BUN/Creatinine Ratio Glucose POC Glucose 186 H 164 H Calcium Ionized Calcium Phosphorus Total Bilirubin AST ALT Alkaline Phosphatase Lactate Dehydrogenase Total Protein Albumin Globulin Albumin/Globulin Ratio Fluid Neutrophils % 4 Fluid Lymphocytes % 77 Fluid Eosinophils % 0 Fluid Meso/Macro/[place] % 19 Fluid Comment Pleural Fluid Source RIGHT LUNG Pleural Color YELLOW Pleural Appearance CLEAR Pleural pH Pleural WBC 488 Pleural RBC < 3000 Pleural Total Protein Pleural LDH Pleural Glucose Pleural Amylase Pleural Cholesterol 01/31/21 01/31/21 01/31/21 Unknown Unknown Unknown WBC RBC Hgb Hct MCV MCH MCHC RDW Std Deviation RDW Coeff of Penelope Plt Count MPV Immature Gran % (Auto) Neut % (Auto) Lymph % (Auto) [place] % (Auto) Eos % (Auto) Baso % (Auto) Neut # (Auto) Lymph # (Auto) [place] # (Auto) Eos # (Auto) Baso # (Auto) Immature Gran # (Auto) APTT PTT Ratio Sodium Potassium Chloride Carbon Dioxide Anion Gap BUN Creatinine Est Cr Clr Drug Dosing Est GFR ( Amer) Est GFR (Non-Af Amer) BUN/Creatinine Ratio Glucose POC Glucose Calcium Ionized Calcium Phosphorus Total Bilirubin AST ALT Alkaline Phosphatase Lactate Dehydrogenase Total Protein Albumin Globulin Albumin/Globulin Ratio Fluid Neutrophils % Fluid Lymphocytes % Fluid Eosinophils % Fluid Meso/Macro/[place] % Fluid Comment Pleural Fluid Source Pleural Color Pleural Appearance Pleural pH 7.54 H Pleural WBC Pleural RBC Pleural Total Protein 2.4 Pleural LDH 70 Pleural Glucose 160 Pleural Amylase 12 Pleural Cholesterol Pending 02/01/21 02/01/21 02/01/21 00:06 05:21 05:21 WBC 8.84 RBC 3.83 L Hgb 11.3 L Hct 34.1 L MCV 89.0 MCH 29.5 MCHC 33.1 RDW Std Deviation 48.0 H RDW Coeff of Penelope 14.9 H Plt Count 152 MPV 10.3 Immature Gran % (Auto) 0.5 Neut % (Auto) 69.1 Lymph % (Auto) 21.9 [place] % (Auto) 6.7 Eos % (Auto) 1.6 Baso % (Auto) 0.2 Neut # (Auto) 6.11 Lymph # (Auto) 1.94 [place] # (Auto) 0.59 Eos # (Auto) 0.14 Baso # (Auto) 0.02 Immature Gran # (Auto) 0.04 H APTT PTT Ratio Sodium Potassium Chloride Carbon Dioxide Anion Gap BUN Creatinine Est Cr Clr Drug Dosing Est GFR ( Amer) Est GFR (Non-Af Amer) BUN/Creatinine Ratio Glucose POC Glucose 191 H Calcium Ionized Calcium Phosphorus Total Bilirubin AST ALT Alkaline Phosphatase Lactate Dehydrogenase 187 Total Protein Albumin Globulin Albumin/Globulin Ratio Fluid Neutrophils % Fluid Lymphocytes % Fluid Eosinophils % Fluid Meso/Macro/[place] % Fluid Comment Pleural Fluid Source Pleural Color Pleural Appearance Pleural pH Pleural WBC Pleural RBC Pleural Total Protein Pleural LDH Pleural Glucose Pleural Amylase Pleural Cholesterol 02/01/21 02/01/21 02/01/21 05:21 05:21 05:21 WBC RBC Hgb Hct MCV MCH MCHC RDW Std Deviation RDW Coeff of Penelope Plt Count MPV Immature Gran % (Auto) Neut % (Auto) Lymph % (Auto) [place] % (Auto) Eos % (Auto) Baso % (Auto) Neut # (Auto) Lymph # (Auto) [place] # (Auto) Eos # (Auto) Baso # (Auto) Immature Gran # (Auto) APTT 28.5 PTT Ratio 1.1 Sodium 140 Potassium 3.6 Chloride 106 Carbon Dioxide 26 Anion Gap 8.0 BUN 78 H Creatinine 4.99 H* Est Cr Clr Drug Dosing 12.6 Est GFR ( Amer) 11.7 Est GFR (Non-Af Amer) 10.1 BUN/Creatinine Ratio 15.6 Glucose 148 H POC Glucose Calcium 7.1 L Ionized Calcium 0.89 L Phosphorus 3.8 Total Bilirubin 0.6 AST 10 L ALT 16 Alkaline Phosphatase 73 Lactate Dehydrogenase Total Protein 6.4 Albumin 2.9 L Globulin 3.5 Albumin/Globulin Ratio 0.8 L Fluid Neutrophils % Fluid Lymphocytes % Fluid Eosinophils % Fluid Meso/Macro/[place] % Fluid Comment Pleural Fluid Source Pleural Color Pleural Appearance Pleural pH Pleural WBC Pleural RBC Pleural Total Protein Pleural LDH Pleural Glucose Pleural Amylase Pleural Cholesterol 02/01/21 02/01/21 02/01/21 06:01 11:33 11:49 WBC RBC Hgb Hct MCV MCH MCHC RDW Std Deviation RDW Coeff of Penelope Plt Count MPV Immature Gran % (Auto) Neut % (Auto) Lymph % (Auto) [place] % (Auto) Eos % (Auto) Baso % (Auto) Neut # (Auto) Lymph # (Auto) [place] # (Auto) Eos # (Auto) Baso # (Auto) Immature Gran # (Auto) APTT 63.6 H* PTT Ratio 2.4 Sodium Potassium Chloride Carbon Dioxide Anion Gap BUN Creatinine Est Cr Clr Drug Dosing Est GFR ( Amer) Est GFR (Non-Af Amer) BUN/Creatinine Ratio Glucose POC Glucose 151 H 152 H Calcium Ionized Calcium Phosphorus Total Bilirubin AST ALT Alkaline Phosphatase Lactate Dehydrogenase Total Protein Albumin Globulin Albumin/Globulin Ratio Fluid Neutrophils % Fluid Lymphocytes % Fluid Eosinophils % Fluid Meso/Macro/[place] % Fluid Comment Pleural Fluid Source Pleural Color Pleural Appearance Pleural pH Pleural WBC Pleural RBC Pleural Total Protein Pleural LDH Pleural Glucose Pleural Amylase Pleural Cholesterol PG Care Time/CCT Total # of Minutes Spent Total Time Spent with Patient: Total time spent is greater than 50% in coordination of care (as documented) at patient's floor/unit and/or counseling patient: Coding Level of Care Code 55693 Subseq Hosp Care Lvl 3 Diagnoses Stage 5 chronic kidney disease not on chronic dialysis N18.5 Bilateral pleural effusion J90 Secondary hyperparathyroidism of renal origin N25.81 Anemia D64.9 Hypertension I10 Hypertension type: unspecified (1) Hypertension Hypertension type: unspecified Qualified Code(s): I10 - Essential (primary) hypertension
[2021-02-01] MEDS: ONDANSETRON INJ 2 MG/ML 2 ML VIAL IV PRN (17:56)
[2021-02-01] MEDS: VENLAFAXINE HCL XR 37.5 MG CAPXR PO SCH (18:01)
[2021-02-01] MEDS: AMPICILLIN/SULBACTAM SOD 3,000 MG in 0.9 % SODIUM CHLORIDE 100 ML IV SCH (20:38)
[2021-02-01] MEDS: FLUDROCORTISONE ACETATE 0.1 MG TAB PO SCH (20:49)
[2021-02-01] MEDS: DONEPEZIL HCL 10 MG TAB PO SCH (20:50)
[2021-02-01] MEDS: TAMSULOSIN HCL 0.4 MG CAP PO SCH (20:50)
[2021-02-02] MEDS: HEPARIN SODIUM/DEXTROSE 25,000 UNITS/500 ML BAG IV SCH ×2 (00:06→15:23)
[2021-02-02 05:50] LABS: Partial Thromboplastin Ratio 3.6
[2021-02-02 05:52] LABS: Partial Thromboplastin Time 95.9 Seconds (21.0-31.0)
[2021-02-02 06:22] LABS: Hematocrit (blood only) 31.8 % (42-52); Hemoglobin 10.4 g/dL (14.0-18.0); Mean Corpuscular Hemoglobin 29.5 pg (25-34); Mean Corpuscular Hgb Conc 32.7 g/dL (32-36); Mean Corpuscular Volume 90.1 fL (80-100); RDW Coefficient of Variation 14.9 % (11.5-14.5); RDW Standard Deviation 48.6 fL (36.4-46.3); Red Blood Count 3.53 M/uL (4.7-6.1); White Blood Count 4.96 K/uL (4.8-10.8)
[2021-02-02 06:56] LABS: Mean Platelet Volume 10.4 fL (7.4-10.4); Platelet Count 92 K/uL (130-400)
[2021-02-02 06:57] LABS: Basophils # (auto) 0.01 K/uL (0-0.2); Basophils % (auto) 0.2 %; Eosinophils # (auto) 0.09 K/uL (0-0.5); Eosinophils % (auto) 1.8 %; Immature Granulocytes # (auto) 0.01 K/uL (0.00-0.02); Immature Granulocytes % (auto) 0.2 %; Lymphocytes # (auto) 1.73 K/uL (1.2-3.4); Lymphocytes % (auto) 34.9 %; Monocytes # (auto) 0.36 K/uL (0.11-0.59); Monocytes % (auto) 7.3 %; Neutrophils # (auto) 2.76 K/uL (1.4-6.5); Neutrophils % (auto) 55.6 %; Platelet Estimate Decreased (Normal)
--- NOTE | 2021-02-02 07:11 | Hospitalist Progress Note ---
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 Stable. Worsening dyspnea on exertion, weakness, tremor -symptoms remain without clear etiology, though uremia secondary to advancing CKD, with resultant HFpEF, emerging as a unifying and likely diagnosis -team including Dr. Rider spoke with patient and all together today at length about options; they appear likely to commit to lifetime dialysis; risks were thoroughly reviewed and emphasized -likely plan for fistula placement 02/[address] Dale -urgent dialysis not currently indicated -continue bumetanide -daily BMP Dysphagia -no stroke on MRI -ongoing speech therapy evaluation/treatment; appreciate recommendations Pleural effusion, chronic pericardial effusion, possible pneumonia -echo (01/29): normal LV function, EF 55-60%, pericardial effusion chronic and small -s/p thoracentesis (01/31) removing 1750mL from right lung (transudative) -continue unasyn for possible pneumonia -stable; maintaining adequate oxygenation on room air Hypocalcemia -repleting -continue calcitriol -appreciate ongoing nephrology recommendations Atrial fibrillation -continue heparin -continue metoprolol 100mg PO bid -eventual transition back to eliquis DM -glycemic consult -continue glargine 11u qAM -ISS Liver transplant recipient -continue prograf, prednisone, delgado Memory impairment -remote and recent memory relatively intact on exam -continue donepezil JANES -continue CPAP BPH -continue tamsulosin, dutasteride FENGI: pureed nectar thick diet DVT ppx: heparin Consults: nephrology, palliative care Code status: DNR/DNI (confirmed by palliative 02/02) Dispo: inpatient (2) Stage 5 chronic kidney disease not on chronic dialysis: (3) Acute dyspnea: (4) Obstructive sleep apnea: (5) PAF (paroxysmal atrial fibrillation): (6) Type 2 diabetes mellitus: (7) Compression fracture: (8) IV infiltration: Admission and Anticipated Discharge Date Admission Date: January 28, 2021 Supervising Physician Co-Signing Physician Notes I personally examined the patient and verified all reeves points of history and exam, discussed case, and agree with decision making with Dr Burrows No new complaints, still tremulous and easily dyspneic. Extensive discussions with patient, , nephrology, all in the room at the same time regarding his goals of care and anticipated next steps. Vitals noted, in general he is awake and alert fatigued appearing with occasional myoclonic jerks all over. No distress. HEENT normocephalic atraumatic mucous membranes moist. Neuro shows asterixis 1. Dysphagia. MRI without acute or subacute stroke. Ongoing speech eval and treat, appreciate recommendations 2. Hypocalcemia. Repleting. Started calcitriol per renal. 3. Tremor. New. Most likely from uremia, could be from gabapentin. Continue to follow 4. Acute dyspnea with new bilateral pleural effusion. Essentially amounting to HFpEF, but predominantly from severely progressed renal disease. Anticipate improvement if he tries dialysis, supportive care otherwise, he is stable on room air 5. Pleural effusion. s/p thoracentesis removing 1750mL from the right lung. 6. ?Pneumonia but unable to rule out definitively given concomitant pleural effusions. Given immune suppressed status, empirically treating for bacterial pneumonia. Coverage for aspiration. De-escalated to Unasyn. Appears quite stable in this regard 7. Afib. Rate controlled. Anticoagulated with heparinanticipate resuming apixaban soon 8. CKD. Goals of care largely centering on whether or not he would like to try dialysis 9. DM. Appreciate glycemic consult recommendations. Continue management 10. Hx of liver transplant. Continue home prograf, pred, and ursodiol. Dispo: Anticipate need for rehab or SNF after discharge, but anticipate a fairly prolonged hospital stay given that at this point it sounds like he is likely to initiate dialysis soon Time in the room approximately 4:10 PM, time out approximately 445, greater than 30 minutes [id number] in discussions with patient and regarding goals of care particularly as it pertains to dialysis and his next steps Subjective Patient feels he is improving slowly, including his SOB, but notes he is still taking more shallow breaths than normal. Notes an improvement in his tremor day by day. Denies pain at this time. Fatigue is improving. Wishes visitor restrictions weren't quite as tight as they are, but, overall, he in good spirits, making jokes during our conversation. Denies confusion, chest pain, leg pain, muscle pain. Review of Systems Review of Systems: See HPI Physical Exam Physical Exam: Awake, alert, frail man laying in bed, no acute distress but a bit uncomfortable particularly when his tremor/myoclonus catches him by surprise or affects his breathing NCAT, mucous membranes a bit dry CV a bit tachycardic, irregularly irregular Resp- breath sounds a bit diminished but clear bilaterally, respiratory effort fair but occasionally briefly interrupted by a myoclonic jerk Abdomen soft, nontender, nondistended Ext- no calf tenderness Neuro: alert, oriented x4. Low-frequency, asymmetric, brief, nonsuppressible myoclonic jerks: prominent and frequent in the face and neck, occasional in upper extremities and diaphragm, rare in lower extremities; no focal neurologic deficits, speech difficult to understand particularly during a myoclonic jerk of face/neck, poor hearing Psych: euthymic affect, cooperative, pleasant, frequently making jokes but affect appropriately changes with topic of conversation, thoughts logical and linear, no apparent internal stimuli Results & Data Results & Data ([facility]) Vital Signs (Past 12 Hours) Vital Signs Temp Pulse Pulse Resp BP Pulse Ox 02/02/21 02:09 107 H 02/01/21 23:00 36.8 C 102 H 20 158/92 H 100 Resident Activity Tracking Resident Involvement: Resident Care Provided Care Provided: Adult Hospital Medicine (1) Type 2 diabetes mellitus Diabetes mellitus lobsterman insulin use: with fpc use Diabetes mellitus complication status: with kidney complications Diabetes mellitus complication detail: with chronic kidney disease Chronic kidney disease stage: stage 4 (severe) Qualified Code(s): E11.22 - Type 2 diabetes mellitus with diabetic chronic kidney disease; N18.4 - Chronic kidney disease, stage 4 (severe); Z79.4 - lobsterman (current) use of insulin
[2021-02-02 07:14] LABS: Albumin Globulin Ratio 0.9 (0.9-2); Albumin Level 2.8 gm/dl (3.4-5.0); BUN Creatinine Ratio 14.8 (10-20); Bilirubin,Total 0.5 mg/dl (0.2-1); Calcium 7.7 mg/dl (8.5-10.1); Creatinine Clr Calc Pharmacy 12.4 ml/min; Est GFR (African American) 12.7; Globulin 3.1 gm/dl (2.5-4.0); Potassium 3.6 mmol/L (3.5-5.1); Thyroid Stimulating Hormone 5.16 uIu/ml (0.300-4.500); Total Protein 5.9 gm/dl (6.4-8.2)
[2021-02-02 07:38] LABS: T4 Free Thyroxine 1.41 ng/dl (0.8-1.6)
[2021-02-02] MEDS: predniSONE 5 MG TAB PO SCH (08:06)
[2021-02-02] MEDS: BUDESONIDE EC 3 MG CAP PO SCH (08:07)
[2021-02-02] MEDS: METOPROLOL SUCC 50MG EXT REL TAB PO SCH ×2 (08:08→21:03)
[2021-02-02] MEDS: ursodioL 300 MG CAP PO SCH ×2 (08:08→21:03)
[2021-02-02] MEDS: CALCITRIOL 0.25 MCG CAPSULE PO SCH (08:10)
[2021-02-02] MEDS: INSULIN ASPART 100 UNITS/ML 3 ML PEN SC SCH ×4 (08:10→21:04)
[2021-02-02] MEDS: INSULIN GLARGINE SOLOSTAR 100 UNITS/ML 3 ML PEN SC SCH (08:10)
[2021-02-02] MEDS: TACROLIMUS 1 MG CAP PO SCH ×2 (08:20→21:03)
--- NOTE | 2021-02-02 10:11 | Nephrology Progress Note ---
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 Baseline creatinine ~4.5 mg/dL. No emergent indication for HD at this time. However, Lawrence is certainly having symptoms that may be related to uremia despite improvement in creatinine over the weekend. His volume status has been difficult to manage and will likely require restarting diuretics in the near future. 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 Unfortunately, I don't have a surgeon available to place a TDC at [facility] today. I do not think placing a temporary catheter at this time would be prudent. I told Lawrence and Dhara that we will give a little more time to see if his symptoms improve and regroup this afternoon when Dhara is at the hospital visiting. Non-oliguric. Urine output acceptable. Electrolytes acceptable. Diuretics have been held to encourage increased EAV. Continue to hold diuretics for now. Left arm nephrology precaution for future AV fistula placement. Document I/O's and repeat metabolic profile tomorrow AM. (2) Bilateral pleural effusion: Thoracentesis performed 01/31. Transudative by Light's criteria. (3) Secondary hyperparathyroidism of renal origin: Calcitriol increased to 1 mcg QAM. Serum calcium remains slightly low. Additional 1 grams IV calcium gluconate provided today. (4) Anemia: Chronic, stable. BENNY therapy deferred for Hgb >10. (5) Hypertension: Metoprolol at current dose as able to tolerate PO. Will monitor. (6) Goals of care, counseling/discussion: >40 minutes spent with patient and his this morning. Remains full code for now but I did not readdress with Lawrence this AM. His Dhara would like to continue conversation with palliative care started during prior hospitalization. Palliative care consultation requested. Admission and Anticipated Discharge Date Admission Date: January 28, 2021 Subjective Lawrence states that he is feeling slightly better this morning. However, his arms continue to jerk when he tries using them and he states that he feels like he is not thinking 100% clearly. He did sleep better last night but he doesn't think the quality of sleep is good. He remains interested in medical therapy that might help in this regard. Lawrence describes himself as "tired and weak" but his mood is much better today. He is oriented and answers questions appropriately. Aspiration precautions with nectar thick liquids have been instituted; this frustrates Lawrence. His mouth feels very dry. He states that his breathing is comfortably. He reluctantly plans to go for rehab post hospitalization. Lawrence remains adamant that SNF or assisted living will not be considered. I did not readdress DNR/DNI with him this morning. However, when we spoke about dialysis, he remains open to the idea of starting HD. I spoke to Dhara this morning as well. She states that she spoke with Lawrence about his goals yesterday. Dhara feels that Lawrence would likely change his code status to DNR/DNI if we revisited the conversation. She states that she thinks having palliative care come back would be helpful now. She remains hopeful that Lawrence can return home soon. She would like to move forward with starting dialysis, if there is any chance it can help get Lawrence home. We talked about how the burden of treatments can make living at home a little more complicated and she states that she is willing to accept this. I reviewed these conversations and discussed the plan of care with Dr. Fam this AM. Review of Systems Review of Systems: All systems reviewed & are unremarkable except as noted in HPI & below Physical Exam Constitutional: + thin and + frail appearing Eyes: + anicteric sclerae; no corneal abnormality ENMT: Ears: + hearing impairment Mouth: + dry oral mucous membranes Neck: normal visual inspection and trachea midline Respiratory: normal respiratory effort Auscultation: + diminished lung sounds; no rales Cardiovascular: Rate/Rhythm: + tachycardic and + irregularly irregular Heart Sounds: normal S1 and normal S2 Vessels: + JVD Extremities: no edema Gastrointestinal (Abdomen): Percussion/Palpation: abdomen soft; abdomen nontender Musculoskeletal: Extremities: + cyanosis; no clubbing Skin: + turgor decreased and + ecchymosis Neurologic: awake Speech / Cognition: no expressive aphasia Motor/Sensory: + tremor and + fasciculations Psychiatric: Orientation: alert and oriented x 3 Results & Data ([facility]) Vital Signs (Past 12 Hours) Vital Signs Temp Pulse Pulse Resp BP Pulse Ox 02/02/21 07:41 36.5 C 103 H 18 173/88 H 93 02/02/21 07:30 104 H 02/02/21 02:09 107 H 02/01/21 23:00 36.8 C 102 H 20 158/92 H 100 Laboratory Results Laboratory Results - last 24 hr 02/01/21 02/01/21 02/01/21 11:33 11:49 16:57 WBC RBC Hgb Hct MCV MCH MCHC RDW Std Deviation RDW Coeff of Penelope Plt Count MPV Immature Gran % (Auto) Neut % (Auto) Lymph % (Auto) [place] % (Auto) Eos % (Auto) Baso % (Auto) Neut # (Auto) Lymph # (Auto) [place] # (Auto) Eos # (Auto) Baso # (Auto) Immature Gran # (Auto) Platelet Estimate APTT 63.6 H* PTT Ratio 2.4 Sodium Potassium Chloride Carbon Dioxide Anion Gap BUN Creatinine Est Cr Clr Drug Dosing Est GFR ( Amer) Est GFR (Non-Af Amer) BUN/Creatinine Ratio Glucose POC Glucose 152 H 119 H Calcium Ionized Calcium Phosphorus Total Bilirubin AST ALT Alkaline Phosphatase Total Protein Albumin Globulin Albumin/Globulin Ratio TSH Free T4 Tacrolimus 02/01/21 02/02/21 02/02/21 20:21 05:10 05:42 WBC 4.96 RBC 3.53 L Hgb 10.4 L Hct 31.8 L MCV 90.1 MCH 29.5 MCHC 32.7 RDW Std Deviation 48.6 H RDW Coeff of Penelope 14.9 H Plt Count 92 L MPV 10.4 Immature Gran % (Auto) 0.2 Neut % (Auto) 55.6 Lymph % (Auto) 34.9 [place] % (Auto) 7.3 Eos % (Auto) 1.8 Baso % (Auto) 0.2 Neut # (Auto) 2.76 Lymph # (Auto) 1.73 [place] # (Auto) 0.36 Eos # (Auto) 0.09 Baso # (Auto) 0.01 Immature Gran # (Auto) 0.01 Platelet Estimate Decreased L APTT 95.9 H* PTT Ratio 3.6 Sodium Potassium Chloride Carbon Dioxide Anion Gap BUN Creatinine Est Cr Clr Drug Dosing Est GFR ( Amer) Est GFR (Non-Af Amer) BUN/Creatinine Ratio Glucose POC Glucose 211 H Calcium Ionized Calcium Phosphorus Total Bilirubin AST ALT Alkaline Phosphatase Total Protein Albumin Globulin Albumin/Globulin Ratio TSH Free T4 Tacrolimus 02/02/21 02/02/21 02/02/21 05:42 05:42 05:42 WBC RBC Hgb Hct MCV MCH MCHC RDW Std Deviation RDW Coeff of Penelope Plt Count MPV Immature Gran % (Auto) Neut % (Auto) Lymph % (Auto) [place] % (Auto) Eos % (Auto) Baso % (Auto) Neut # (Auto) Lymph # (Auto) [place] # (Auto) Eos # (Auto) Baso # (Auto) Immature Gran # (Auto) Platelet Estimate APTT PTT Ratio Sodium 141 Potassium 3.6 Chloride 105 Carbon Dioxide 25 Anion Gap 11.0 BUN 69 H Creatinine 4.67 H* D Est Cr Clr Drug Dosing 12.4 Est GFR ( Amer) 12.7 Est GFR (Non-Af Amer) 11.0 BUN/Creatinine Ratio 14.8 Glucose 186 H POC Glucose Calcium 7.7 L Ionized Calcium 0.94 L Phosphorus 5.0 H D Total Bilirubin 0.5 AST 10 L ALT 15 Alkaline Phosphatase 70 Total Protein 5.9 L Albumin 2.8 L Globulin 3.1 Albumin/Globulin Ratio 0.9 TSH 5.160 H Free T4 1.41 Tacrolimus Pending 02/02/21 07:49 WBC RBC Hgb Hct MCV MCH MCHC RDW Std Deviation RDW Coeff of Penelope Plt Count MPV Immature Gran % (Auto) Neut % (Auto) Lymph % (Auto) [place] % (Auto) Eos % (Auto) Baso % (Auto) Neut # (Auto) Lymph # (Auto) [place] # (Auto) Eos # (Auto) Baso # (Auto) Immature Gran # (Auto) Platelet Estimate APTT PTT Ratio Sodium Potassium Chloride Carbon Dioxide Anion Gap BUN Creatinine Est Cr Clr Drug Dosing Est GFR ( Amer) Est GFR (Non-Af Amer) BUN/Creatinine Ratio Glucose POC Glucose 238 H Calcium Ionized Calcium Phosphorus Total Bilirubin AST ALT Alkaline Phosphatase Total Protein Albumin Globulin Albumin/Globulin Ratio TSH Free T4 Tacrolimus PG Care Time/CCT Total # of Minutes Spent Total Time Spent with Patient: Total time spent is greater than 50% in coordination of care (as documented) at patient's floor/unit and/or counseling patient: Coding Level of Care Code 13975 Subseq Hosp Care Lvl 3 Diagnoses Stage 5 chronic kidney disease not on chronic dialysis N18.5 Bilateral pleural effusion J90 Secondary hyperparathyroidism of renal origin N25.81 Anemia D64.9 Hypertension I10 Hypertension type: unspecified Goals of care, counseling/discussion Z71.89 (1) Hypertension Hypertension type: unspecified Qualified Code(s): I10 - Essential (primary) hypertension
[2021-02-02] MEDS: DUTASTERIDE PO SCH (12:28)
[2021-02-02] MEDS ORDERED: CALCIUM GLUCONATE 10% 1,000 MG in SODIUM CHLORIDE 0.9% 50 ML IV ONE (12:45)
--- NOTE | 2021-02-02 13:28 | Fluoroscopy Report ---
FL video swallow CLINICAL HISTORY: 80 years-old Male with dysphagia. TECHNIQUE: Video fluoroscopic evaluation of swallowing was performed in the AP and lateral projection s by the speech pathology staff. The patient is fed nectar-thick and thin liquid barium, a barium coa zara wafer, and barium pudding. FLUOROSCOPY TIME: 2.2 minutes. COMPARISON STUDY: None. FINDINGS: Diffuse esophageal dysmotility. Disordered oropharyngeal transit. Vallecular retention is n oted throughout the study. Aspiration and cough with thin liquid barium. IMPRESSION: 1. Aspiration with thin liquid barium. 2. Please see the speech pathologist report for detailed findings and recommendations. ACT 112: Negative or not required by law. Electronically signed by: Delfin Thurman M.D. 02/02/2021 1:26 PM
[2021-02-02 15:18] LABS: Partial Thromboplastin Ratio 2.5
[2021-02-02 15:22] LABS: Partial Thromboplastin Time 66.5 Seconds (21.0-31.0)
--- NOTE | 2021-02-02 15:28 | Palliative Care Consultation ---
Date of Consultation February 02, 2021 Assessment & Plan (1) Palliative care encounter: Mr. Herrera was admitted to [facility] with shortness of breath and worsening GUERRIRE. He has a complex PMH that includes CKD stage 4, Afib, liver transplant, HTN, and DM2. His baseline creatinine is 4.55 and he has been evaluated by Nephrology while inpatient regarding conversation about pursuing hemodialysis and they have decided to pursue future AV fistula placement. Additionally, bilateral pleural effusions were discovered with a thoracentesis performed on 01/31. Palliative care was consulted to discuss code status per the request of the patients . I met with Mr. Herrera and his , Dhara in room 257. He is able to participate in our conversation and interact and answer questions appropriately. We reconfirmed his plan to eventually have a fistula placed for eventual planned hemodialysis. Discussed trial of hemodialysis and outpatient palliative follow up which he was receptive to, if he begins hemodialysis. Plan is for him to go to a skilled facility for some rehabilitation and 'see how it goes' in his words. Eventual goal per his , Dhara, is for him to return home. (2) Code status needs review: I spoke about Lawrence's code status and when described he indicated that he would not like to be kept alive on machines and would rather be kept comfortable and allow a natural in the event of a cardiac or respiratory arrest. DNR/DNI order placed in the computer. Dhara at his bedside and supports his decision. Palliative care will sign off on this individual. Please re-involve should you find he would benefit from palliative serivces. (3) Stage 5 chronic kidney disease not on chronic dialysis: History of Present Illness Reason for Consultation: Goals of care Requesting Physician: Dr. Rider Attending Physician: Harjinder Fam DO History of Present Illness Mr. Herrera was admitted to [facility] with shortness of breath and worsening GUERRIER. He has a complex PMH that includes CKD stage 4, Afib, liver transplant, HTN, and DM2. His baseline creatinine is 4.55 and he has been evaluated by Nephrology while inpatient regarding conversation about pursuing hemodialysis and they have decided to pursue future AV fistula placement. Additionally, bilateral pleural effusions were discovered with a thoracentesis performed on 01/31. Palliative care was consulted to discuss code status per the request of the patients . Please see A/P for further details. Thank you for involving palliative care with this individual. Allergies Allergy/AdvReac Type Severity Reaction Status Date / Time aspirin AdvReac Unknown high doses Verified 01/28/21 19:57 contrindicated d/t hx liver transplant gabapentin AdvReac Unknown shakiness Verified 02/01/21 20:25 and impaired mobility ibuprofen AdvReac Unknown not to Verified 01/28/21 19:57 take due to transplant Home Medications Medication Instructions Recorded Confirmed Type calcium carbonate [Calcium 600] 600 mg PO BID 01/09/19 01/28/21 History prednisone 5 mg PO QAM 01/09/19 01/28/21 History ursodiol 300 mg PO BID 01/09/19 01/28/21 History Webcentrix 1 cap PO QAM 07/10/19 01/28/21 History lidocaine 5 % topical patch 1 patch TOP DAILY PRN 08/10/19 01/28/21 History polyethylene glycol 3350 17 gram 17 gm PO DAILY PRN 08/10/19 01/28/21 History oral powder packet aspirin 81 mg PO QAM 03/17/20 01/28/21 History hydrocortisone 2.5 % topical cream 1 appln PA DAILY PRN #28.35 gm 03/18/20 01/28/21 Rx with perineal applicator Prolia 60 mg/mL subcutaneous 60 mg SUBCUT Q6MO #1 ml NS 07/22/20 01/28/21 Rx syringe apixaban 2.5 mg tablet 2.5 mg PO BID #60 tab 08/21/20 01/28/21 Rx menthol 0.44 %-zinc oxide 20.6 % 1 applic TOPICAL QID PRN #113 g 09/02/20 01/28/21 Rx topical ointment OneTouch Delica Lancets 33 gauge #300 ea NS 09/12/20 01/16/21 Rx OneTouch Verio test strips #300 ea NS 09/12/20 01/16/21 Rx meclizine 25 mg tablet 25 mg PO DAILY PRN #30 tab 10/09/20 01/28/21 Rx venlafaxine 37.5 mg 37.5 mg PO DAILY@1700 #30 cap 10/09/20 01/28/21 Rx capsule,extended release 24 hr calcitriol 0.5 mcg capsule 0.5 mcg PO QAM 90 Days #90 cap 10/10/20 01/28/21 Rx Tresiba FlexTouch U-100 11 unit SUBCUT QAM 11/21/20 01/28/21 History donepezil 10 mg PO HS 11/21/20 01/28/21 History dutasteride 0.5 mg PO QDL 11/21/20 01/28/21 History fludrocortisone 0.1 mg PO QPM 11/21/20 01/28/21 History tacrolimus [Prograf] 2 mg PO BID 11/21/20 01/28/21 History tamsulosin [Flomax] 0.4 mg PO QPM 11/21/20 01/28/21 History budesonide 3 mg 9 mg PO DAILY #90 ea 11/28/20 01/28/21 Rx capsule,delayed,extended release metoprolol succinate 50 mg 100 mg PO BID #120 tab 01/01/21 01/28/21 Rx tablet,extended release 24 hr cyanocobalamin (vitamin B-12) 1,000 mcg PO DAILY #30 cap 01/09/21 01/28/21 Rx 1,000 mcg capsule insulin aspart U-100 100 unit/mL See Rx Instructions SUBCUT .COMPLEX 01/09/21 01/28/21 History (3 mL) subcutaneous pen amitriptyline 10 mg tablet 10 mg PO .qhs #30 tab 01/16/21 01/28/21 Rx furosemide 20 mg tablet 40 mg PO QAM #90 tab 01/16/21 01/28/21 Rx acetaminophen 500 mg PO .WITH LUNCH PRN 01/28/21 01/28/21 History acetaminophen 650 mg PO BID PRN 01/28/21 01/28/21 History gabapentin 100 mg PO TID PRN 01/28/21 01/28/21 History Patient History Medical History Anemia Atrial fibrillation dx 08/2020 - on Eliquis -- follows with Dr. Madrigal Bright red rectal bleeding Cancer SKIN CANCER-BASAL CELL/SQUAMOUS CHF (congestive heart failure) CKD (chronic kidney disease) Stage 4 - Follows with Dr. Rider Compression fracture Depression, major, recurrent, in remission Diarrhea Diverticular disease DM type 2 (diabetes mellitus, type 2) IDDM Hypertension Pancreatitis HX Pericardial effusion Pericardial effusion chronic Sclerosing cholangitis S/P liver transplant 1994 Secondary hyperparathyroidism of renal origin Sleep apnea BiPAP Stage 5 chronic kidney disease not on chronic dialysis Vitamin D deficiency Surgical History Fusion of spine LUMBAR H/O exploratory laparotomy History of appendectomy History of cholecystectomy History of colonoscopy History of esophagogastroduodenoscopy (EGD) History of herniorrhaphy X 2 History of liver biopsy History of oral surgery Posts implanted in mandible for bottom denture History of tooth extraction Transplant LIVER 1994 IN [place] ([facility]) Family History Father Family history of diabetes mellitus Myocardial infarction Heart failure Mother Dementia Denies family history of Ovarian cancer Prostate cancer Breast cancer Colorectal cancer Social History Smoking Status: Former smoker Tobacco Type: Cigarettes Cigarettes Per Day: QUIT 1971; Second Hand Exposure: No; Hx Alcohol Use: No Hx Substance Use: No Preferred Language: Indonesian Communication Ability: Effective Visual Impairment: Limited 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 Beliefs That Will Affect Care: None marital status: Current Living Situation: Spouse current occupational status: retired Feels Safe at Home: Yes Dental Care, Regularly: Yes Seatbelt Use: always Sunscreen Use: Yes Assistive Devices: CPAP, Glasses and Hearing Aid - Left Review of Systems Review of Systems: [place] System Assessment Review: Pain: 0/3 Tiredness: 0/3 Lack of Appetite: 1/3 Shortness of breath: 0/3 Palliative Performance Scale: 40% Physical Exam Constitutional: well developed, + frail appearing and cooperative Neck: trachea midline, no thyromegaly Respiratory: + cough Auscultation: + diminished lung sounds Cardiovascular: Heart Sounds: normal S1, normal S2 and + murmur Extremi ties: normal capillary refill and + edema Gastrointestinal (Abdomen): normal bowel sounds, soft, nontender, no hepatosplenomegaly Skin: + excoriations and + pallor Psychiatric: A+Ox3, euthymic affect Results & Data ([facility]) Vital Signs (Past 12 Hours) Vital Signs Temp Pulse Pulse Resp BP Pulse Ox 02/02/21 15:16 36.3 C L 96 H 18 142/86 H 99 02/02/21 11:27 36.5 C 103 H 18 173/88 H 93 02/02/21 07:41 36.5 C 103 H 18 173/88 H 93 02/02/21 07:30 104 H PG Care Time/CCT Total # of Minutes Spent Total Time Spent with Patient: Total time spent is greater than 50% in coordination of care (as documented) at patient's floor/unit and/or counseling patient: Total time spent 70 minutes with 50% of that time spent assessing the patient, discussing goals of care with the patient and his , while collaborating with IDT Coding Level of Care Code 87309 Inpt Consult Level 3 Diagnoses Palliative care encounter Z51.5 Code status needs review Stage 5 chronic kidney disease not on chronic dialysis N18.5 Time Spent (min) 70
[2021-02-02] MEDS: VENLAFAXINE HCL 50 MG TAB PO SCH (16:58)
--- NOTE | 2021-02-02 20:22 | Billing Data ---
Date of Service February 02, 2021 Coding Level of Care Code 09592 Subseq Hosp Care Lvl 3
--- NOTE | 2021-02-02 20:24 | Billing Data ---
Date of Service February 02, 2021 Coding Level of Care Code 64610 Prolonged Care (int'l)
[2021-02-02] MEDS: AMPICILLIN/SULBACTAM SOD 3,000 MG in 0.9 % SODIUM CHLORIDE 100 ML IV SCH (20:59)
[2021-02-02] MEDS: DONEPEZIL HCL 10 MG TAB PO SCH (21:03)
[2021-02-02] MEDS: FLUDROCORTISONE ACETATE 0.1 MG TAB PO SCH (21:03)
[2021-02-02] MEDS: TAMSULOSIN HCL 0.4 MG CAP PO SCH (21:03)
[2021-02-02 23:16] LABS: Partial Thromboplastin Ratio 1.8
[2021-02-02 23:32] LABS: Partial Thromboplastin Time 46.4 Seconds (21.0-31.0)
[2021-02-03] MEDS: HEPARIN SODIUM/DEXTROSE 25,000 UNITS/500 ML BAG IV SCH ×3 (07:03→14:21)
--- NOTE | 2021-02-03 07:05 | Hospitalist Progress Note ---
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 Stable. Worsening dyspnea on exertion, weakness, tremor -likely plan for fistula placement 02/04 -urgent dialysis not currently indicated -continue bumetanide -daily BMP Dysphagia -no stroke on MRI -ongoing speech therapy evaluation/treatment; appreciate recommendations Pleural effusion, chronic pericardial effusion, possible pneumonia -echo (01/29): normal LV function, EF 55-60%, pericardial effusion chronic and small -s/p thoracentesis (01/31) removing 1750mL from right lung (transudative) -no signs of infectious process - unasyn discontinued -stable; maintaining adequate oxygenation on room air Hypocalcemia -repleting -continue calcitriol -appreciate ongoing nephrology recommendations Atrial fibrillation -continue heparin -continue metoprolol 100mg PO bid -eventual transition back to eliquis DM -glycemic consult -continue glargine 11u qAM -ISS Liver transplant recipient -continue prograf, prednisone, delgado Memory impairment -remote and recent memory relatively intact on exam -continue donepezil JANES -continue CPAP BPH -continue tamsulosin, dutasteride FENGI: pureed nectar thick diet DVT ppx: heparin Consults: nephrology, palliative care Code status: DNR/DNI (confirmed by palliative 02/02) Dispo: inpatient Admission and Anticipated Discharge Date Admission Date: January 28, 2021 Supervising Physician Co-Signing Physician Notes I personally examined the patient and verified all reeves points of history and exam, discussed case, and agree with decision making with Dr Burrows going to proceed w HD. eating. sitting up and feeling ok. Vitals noted, in general he is awake and alert fatigued appearing with occasional myoclonic jerks all over. No distress. HEENT normocephalic atraumatic mucous membranes moist. ongoing tremulousness 1. Dysphagia. MRI without acute or subacute stroke. Ongoing speech eval and treat, appreciate recommendations 2. Hypocalcemia. Repleting. ongoing calcitriol 3. Tremor. New. Most likely from uremia, could be from gabapentin. Continue to follow, seems stable, anticipate following after HD too 4. Acute dyspnea with new bilateral pleural effusion. Essentially amounting to HFpEF, but predominantly from severely progressed renal disease. Anticipate improvement if he tries dialysis, supportive care otherwise, he is stable on room air 5. Pleural effusion. s/p thoracentesis removing 1750mL from the right lung. 6. ?Pneumonia but unable to rule out definitively given concomitant pleural effusions. Given immune suppressed status, empirically treating for bacterial pneumonia. that said seems to have improved, stable for dc abx and follow 7. Afib. Rate controlled. Anticoagulated with heparinanticipate resuming apixaban soon (but having surgery for HD access) 8. CKD. for trial of HD 9. DM. Appreciate glycemic consult recommendations. Continue management 10. Hx of liver transplant. Continue home prograf, pred, and ursodiol. Dispo: Anticipate need for rehab or SNF after discharge, but anticipate a fairly prolonged hospital stay given that at this point it sounds like he is initiating dialysis soon Subjective Seen at bedside this morning. Feels well overall, thinks his tremor has improved a bit. Says he's thinking more clearly as well. Shortness of breath has mildly improved from yesterday. Fatigue and weakness continues. Denies CP, abdominal pain, fever, chills, or other symptoms. Review of Systems Review of Systems: See HPI Physical Exam Physical Exam: Awake, alert, frail man laying in bed, no acute distress CV irregularly irregular rhythm, rate regular Resp- breath sounds diminished but clear bilaterally, no increased WOB Abdomen soft, nontender, nondistended Ext- no calf tenderness Neuro: alert, oriented x4. Low-frequency, asymmetric, brief, nonsuppressible myoclonic jerks: prominent and frequent in the face and neck, occasional in upper extremities and diaphragm, rare in lower extremities; no focal neurologic deficits, speech difficult to understand particularly during a myoclonic jerk of face/neck, poor hearing Psych: euthymic affect, cooperative, pleasant, thoughts logical and linear, no apparent internal stimuli Results & Data Results & Data ([facility]) Vital Signs (Past 12 Hours) Vital Signs Temp Pulse Pulse Resp BP Pulse Ox 02/03/21 03:00 36.3 C L 100 H 20 158/93 H 95 02/03/21 01:37 99 H 02/02/21 23:00 36.6 C 110 H 20 146/86 H 97 Resident Activity Tracking Resident Involvement: Resident Care Provided Care Provided: Adult [facility] Medicine
[2021-02-03 07:58] LABS: Basophils # (auto) 0.02 K/uL (0-0.2); Basophils % (auto) 0.3 %; Eosinophils # (auto) 0.13 K/uL (0-0.5); Eosinophils % (auto) 2.1 %; Hematocrit (blood only) 30.6 % (42-52); Hemoglobin 10.1 g/dL (14.0-18.0); Immature Granulocytes # (auto) 0.02 K/uL (0.00-0.02); Immature Granulocytes % (auto) 0.3 %; Lymphocytes # (auto) 1.81 K/uL (1.2-3.4); Lymphocytes % (auto) 28.9 %; Mean Corpuscular Hemoglobin 29.7 pg (25-34); Mean Platelet Volume 10.7 fL (7.4-10.4); Monocytes # (auto) 0.46 K/uL (0.11-0.59); Monocytes % (auto) 7.3 %; Neutrophils # (auto) 3.82 K/uL (1.4-6.5); Neutrophils % (auto) 61.1 %; Platelet Count 121 K/uL (130-400); RDW Coefficient of Variation 15.2 % (11.5-14.5); RDW Standard Deviation 49.2 fL (36.4-46.3); White Blood Count 6.26 K/uL (4.8-10.8)
[2021-02-03] MEDS: ursodioL 300 MG CAP PO SCH ×2 (08:08→20:53)
[2021-02-03] MEDS: INSULIN ASPART 100 UNITS/ML 3 ML PEN SC SCH ×4 (08:08→20:56)
[2021-02-03] MEDS: INSULIN GLARGINE SOLOSTAR 100 UNITS/ML 3 ML PEN SC SCH (08:10)
[2021-02-03] MEDS: TACROLIMUS 1 MG CAP PO SCH ×2 (08:12→20:55)
[2021-02-03] MEDS: METOPROLOL SUCC 50MG EXT REL TAB PO SCH ×2 (08:12→20:55)
[2021-02-03] MEDS: BUDESONIDE EC 3 MG CAP PO SCH (08:13)
[2021-02-03] MEDS: CALCITRIOL 0.25 MCG CAPSULE PO SCH (08:13)
[2021-02-03] MEDS: predniSONE 5 MG TAB PO SCH (08:14)
[2021-02-03 08:33] LABS: Partial Thromboplastin Ratio 2.1
[2021-02-03 08:36] LABS: Partial Thromboplastin Time 56.3 Seconds (21.0-31.0)
[2021-02-03 08:38] LABS: Albumin Globulin Ratio 0.8 (0.9-2); Albumin Level 2.8 gm/dl (3.4-5.0); BUN Creatinine Ratio 14.6 (10-20); Bilirubin,Total 0.6 mg/dl (0.2-1); Calcium 7.7 mg/dl (8.5-10.1); Creatinine Clr Calc Pharmacy 12.1 ml/min; Est GFR (African American) 12.3; Est GFR (Non-African American) 10.6; Globulin 3.4 gm/dl (2.5-4.0); Phosphorus 5.1 mg/dl (2.5-4.9); Potassium 3.9 mmol/L (3.5-5.1); Total Protein 6.2 gm/dl (6.4-8.2)
--- NOTE | 2021-02-03 09:41 | Nephrology Progress Note ---
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 Lawrence has developed uremic symptoms and fluid retention. He would like to proceed with hemodialysis at this time. The plan was reviewed with Lawrence and his this AM. Palliative care consultation appreciated. Lawrence plans to follow up with palliative care post discharge to assess how he is doing with treatment. I reviewed the plan of care with Dr. Fam. Surgery has been consulted for TDC placement. Lawrence remains on heparin gtt at this time. Case management consulted to assist with HD arrangements post discharge. Diuretics have been held. Volume status remains acceptable for now. Left arm nephrology precaution for future AV fistula placement. Document I/O's and repeat metabolic profile tomorrow AM. (2) Bilateral pleural effusion: Thoracentesis performed 01/31. Transudative by Light's criteria. (3) Secondary hyperparathyroidism of renal origin: Calcitriol 1 mcg QAM. Calcium remains slightly low but acceptable. (4) Anemia: Chronic, stable. BENNY therapy deferred for Hgb >10. (5) Hypertension: BP and volume status acceptable. Remains on stable dose of metoprolol. (6) Goals of care, counseling/discussion: DNR/DNI confirmed yesterday. Admission and Anticipated Discharge Date Admission Date: January 28, 2021 Subjective No acute events overnight. Lawrence was out of bed to commode this AM. He reports feeling reasonably well this AM. He denies significant dyspnea. No fevers or chills. He is thinking clearer. Muscle fasciculations persist. Review of Systems Review of Systems: All systems reviewed & are unremarkable except as noted in HPI & below Physical Exam Constitutional: + thin and + frail appearing Eyes: + anicteric sclerae; no corneal abnormality ENMT: Ears: + hearing impairment Mouth: + dry oral mucous membranes Neck: normal visual inspection and trachea midline Respiratory: normal respiratory effort Auscultation: + diminished lung sounds; no rales Cardiovascular: Rate/Rhythm: + tachycardic and + irregularly irregular Heart Sounds: normal S1 and normal S2 Vessels: + JVD Extremities: no edema Gastrointestinal (Abdomen): Percussion/Palpation: abdomen soft; abdomen nontender Musculoskeletal: Extremities: + cyanosis; no clubbing Skin: + turgor decreased and + ecchymosis Neurologic: awake Speech / Cognition: no expressive aphasia Motor/Sensory: + tremor and + fasciculations Psychiatric: Orientation: alert and oriented x 3 Results & Data ([facility]) Vital Signs (Past 12 Hours) Vital Signs Temp Pulse Pulse Resp BP Pulse Ox 02/03/21 07:48 36.3 C L 104 H 18 119/89 94 02/03/21 07:10 113 H 02/03/21 03:00 36.3 C L 100 H 20 158/93 H 95 02/03/21 01:37 99 H 02/02/21 23:00 36.6 C 110 H 20 146/86 H 97 Laboratory Results Laboratory Results - last 24 hr 02/02/21 02/02/21 02/02/21 11:33 14:13 16:48 WBC RBC Hgb Hct MCV MCH MCHC RDW Std Deviation RDW Coeff of Penelope Plt Count MPV Immature Gran % (Auto) Neut % (Auto) Lymph % (Auto) [place] % (Auto) Eos % (Auto) Baso % (Auto) Neut # (Auto) Lymph # (Auto) [place] # (Auto) Eos # (Auto) Baso # (Auto) Immature Gran # (Auto) APTT 66.5 H* PTT Ratio 2.5 Sodium Potassium Chloride Carbon Dioxide Anion Gap BUN Creatinine Est Cr Clr Drug Dosing Est GFR ( Amer) Est GFR (Non-Af Amer) BUN/Creatinine Ratio Glucose POC Glucose 185 H 105 H Calcium Ionized Calcium Phosphorus Total Bilirubin AST ALT Alkaline Phosphatase Total Protein Albumin Globulin Albumin/Globulin Ratio 02/02/21 02/02/21 02/03/21 20:30 22:37 07:33 WBC RBC Hgb Hct MCV MCH MCHC RDW Std Deviation RDW Coeff of Penelope Plt Count MPV Immature Gran % (Auto) Neut % (Auto) Lymph % (Auto) [place] % (Auto) Eos % (Auto) Baso % (Auto) Neut # (Auto) Lymph # (Auto) [place] # (Auto) Eos # (Auto) Baso # (Auto) Immature Gran # (Auto) APTT 46.4 H* PTT Ratio 1.8 Sodium Potassium Chloride Carbon Dioxide Anion Gap BUN Creatinine Est Cr Clr Drug Dosing Est GFR ( Amer) Est GFR (Non-Af Amer) BUN/Creatinine Ratio Glucose POC Glucose 160 H 198 H Calcium Ionized Calcium Phosphorus Total Bilirubin AST ALT Alkaline Phosphatase Total Protein Albumin Globulin Albumin/Globulin Ratio 02/03/21 02/03/21 02/03/21 07:41 07:41 07:41 WBC 6.26 RBC 3.40 L Hgb 10.1 L Hct 30.6 L MCV 90.0 MCH 29.7 MCHC 33.0 RDW Std Deviation 49.2 H RDW Coeff of Penelope 15.2 H Plt Count 121 L MPV 10.7 H Immature Gran % (Auto) 0.3 Neut % (Auto) 61.1 Lymph % (Auto) 28.9 [place] % (Auto) 7.3 Eos % (Auto) 2.1 Baso % (Auto) 0.3 Neut # (Auto) 3.82 Lymph # (Auto) 1.81 [place] # (Auto) 0.46 Eos # (Auto) 0.13 Baso # (Auto) 0.02 Immature Gran # (Auto) 0.02 APTT PTT Ratio Sodium 140 Potassium 3.9 Chloride 105 Carbon Dioxide 25 Anion Gap 9.0 BUN 70 H Creatinine 4.79 H* Est Cr Clr Drug Dosing 12.1 Est GFR ( Amer) 12.3 Est GFR (Non-Af Amer) 10.6 BUN/Creatinine Ratio 14.6 Glucose 199 H POC Glucose Calcium 7.7 L Ionized Calcium 0.94 L Phosphorus 5.1 H Total Bilirubin 0.6 AST 12 L ALT 15 Alkaline Phosphatase 69 Total Protein 6.2 L Albumin 2.8 L Globulin 3.4 Albumin/Globulin Ratio 0.8 L 02/03/21 07:41 WBC RBC Hgb Hct MCV MCH MCHC RDW Std Deviation RDW Coeff of Penelope Plt Count MPV Immature Gran % (Auto) Neut % (Auto) Lymph % (Auto) [place] % (Auto) Eos % (Auto) Baso % (Auto) Neut # (Auto) Lymph # (Auto) [place] # (Auto) Eos # (Auto) Baso # (Auto) Immature Gran # (Auto) APTT 56.3 H* PTT Ratio 2.1 Sodium Potassium Chloride Carbon Dioxide Anion Gap BUN Creatinine Est Cr Clr Drug Dosing Est GFR ( Amer) Est GFR (Non-Af Amer) BUN/Creatinine Ratio Glucose POC Glucose Calcium Ionized Calcium Phosphorus Total Bilirubin AST ALT Alkaline Phosphatase Total Protein Albumin Globulin Albumin/Globulin Ratio PG Care Time/CCT Total # of Minutes Spent Total Time Spent with Patient: Total time spent is greater than 50% in coordination of care (as documented) at patient's floor/unit and/or counseling patient: Coding Level of Care Code 77469 Subseq Hosp Care Lvl 3 Diagnoses Stage 5 chronic kidney disease not on chronic dialysis N18.5 Bilateral pleural effusion J90 Secondary hyperparathyroidism of renal origin N25.81 Anemia D64.9 Hypertension I10 Hypertension type: unspecified Goals of care, counseling/discussion Z71.89 (1) Hypertension Hypertension type: unspecified Qualified Code(s): I10 - Essential (primary) hypertension
--- NOTE | 2021-02-03 10:37 | Surgery Consultation ---
Date of Consultation February 03, 2021 Assessment & Plan (1) Stage 5 chronic kidney disease not on chronic dialysis: This is an 80y M with a PMH of DM2, liver transplant, Afib on eliquis, HTN, and CKD who presented to the [facility] on 01/28/21 with complaints of dyspnea on exertion and tremors. We have been consulted by request of Nephrology to consider placement of a tunnelled dialysis catheter to start dialysis. We will add patient onto the OR schedule for this upcoming . Please make NPO at midnight day prior and hold heparin gtt starting at 3am on the morning of procedure. Patient has been seen & examined by Dr. Dale and has obtained surgical consent. as above. discussed with pt and his . discussed risks ( bleeding/vascular injury/cath malfunction or infection/dvt/pe/mi/cva/pneumothorax etc..... they are agreeable. will plan th AM. will need to hold heparin 4-6 hours prior to OR. History of Present Illness Attending Physician: Harjinder Fam DO History of Present Illness This is an 80y M with a PMH of DM2, liver transplant, Afib on eliquis, HTN, and CKD who presented to the [facility] on 01/28/21 with complaints of dyspnea on exertion and tremors. Patient was admitted and initially diuresed and a R thoracentesis performed on 01/31 for pleural effusion with some improvement. Nephrology has been following for patient's CKD and recommending patient start dialysis for management of his uremia and fluid volume status. We have been consulted for placement of TDC. Palliative care involved and both patient and agreeable to start HD. Allergies Allergy/AdvReac Type Severity Reaction Status Date / Time aspirin AdvReac Unknown high doses Verified 01/28/21 19:57 contrindicated d/t hx liver transplant gabapentin AdvReac Unknown shakiness Verified 02/01/21 20:25 and impaired mobility ibuprofen AdvReac Unknown not to Verified 01/28/21 19:57 take due to transplant Home Medications Medication Instructions Recorded Confirmed Type calcium carbonate [Calcium 600] 600 mg PO BID 01/09/19 01/28/21 History prednisone 5 mg PO QAM 01/09/19 01/28/21 History ursodiol 300 mg PO BID 01/09/19 01/28/21 History [facility] 1 cap PO QAM 07/10/19 01/28/21 History lidocaine 5 % topical patch 1 patch TOP DAILY PRN 08/10/19 01/28/21 History polyethylene glycol 3350 17 gram 17 gm PO DAILY PRN 08/10/19 01/28/21 History oral powder packet aspirin 81 mg PO QAM 03/17/20 01/28/21 History hydrocortisone 2.5 % topical cream [address] DAILY PRN #28.35 gm 03/18/20 01/28/21 Rx with perineal applicator Prolia 60 mg/mL subcutaneous 60 mg SUBCUT Q6MO #1 ml NS 07/22/20 01/28/21 Rx syringe apixaban 2.5 mg tablet 2.5 mg PO BID #60 tab 08/21/20 01/28/21 Rx menthol 0.44 %-zinc oxide 20.6 % 1 applic TOPICAL QID PRN #113 g 09/02/20 01/28/21 Rx topical ointment OneTouch Delica Lancets 33 gauge #300 ea NS 09/12/20 01/16/21 Rx OneTouch Verio test strips #300 ea NS 09/12/20 01/16/21 Rx meclizine 25 mg tablet 25 mg PO DAILY PRN #30 tab 10/09/20 01/28/21 Rx venlafaxine 37.5 mg 37.5 mg PO DAILY@1700 #30 cap 10/09/20 01/28/21 Rx capsule,extended release 24 hr calcitriol 0.5 mcg capsule 0.5 mcg PO QAM 90 Days #90 cap 10/10/20 01/28/21 Rx Tresiba FlexTouch U-100 11 unit SUBCUT QAM 11/21/20 01/28/21 History donepezil 10 mg PO HS 11/21/20 01/28/21 History dutasteride 0.5 mg PO QDL 11/21/20 01/28/21 History fludrocortisone 0.1 mg PO QPM 11/21/20 01/28/21 History tacrolimus [Prograf] 2 mg PO BID 11/21/20 01/28/21 History tamsulosin [Flomax] 0.4 mg PO QPM 11/21/20 01/28/21 History budesonide 3 mg 9 mg PO DAILY #90 ea 11/28/20 01/28/21 Rx capsule,delayed,extended release metoprolol succinate 50 mg 100 mg PO BID #120 tab 01/01/21 01/28/21 Rx tablet,extended release 24 hr cyanocobalamin (vitamin B-12) 1,000 mcg PO DAILY #30 cap 01/09/21 01/28/21 Rx 1,000 mcg capsule insulin aspart U-100 100 unit/mL See Rx Instructions SUBCUT .COMPLEX 01/09/21 01/28/21 History (3 mL) subcutaneous pen amitriptyline 10 mg tablet 10 mg PO .qhs #30 tab 01/16/21 01/28/21 Rx furosemide 20 mg tablet 40 mg PO QAM #90 tab 01/16/21 01/28/21 Rx acetaminophen 500 mg PO .WITH LUNCH PRN 01/28/21 01/28/21 History acetaminophen 650 mg PO BID PRN 01/28/21 01/28/21 History gabapentin 100 mg PO TID PRN 01/28/21 01/28/21 History Patient History Medical History Anemia Atrial fibrillation dx 08/2020 - on Eliquis -- follows with Dr. Madrigal Bright red rectal bleeding Cancer SKIN CANCER-BASAL CELL/SQUAMOUS CHF (congestive heart failure) CKD (chronic kidney disease) Stage 4 - Follows with Dr. Rider Code status needs review Compression fracture Depression, major, recurrent, in remission Diarrhea Diverticular disease DM type 2 (diabetes mellitus, type 2) IDDM Hypertension Palliative care encounter Pancreatitis HX Pericardial effusion Pericardial effusion chronic Sclerosing cholangitis S/P liver transplant 1994 Secondary hyperparathyroidism of renal origin Sleep apnea BiPAP Stage 5 chronic kidney disease not on chronic dialysis Vitamin D deficiency Surgical History Fusion of spine LUMBAR H/O exploratory laparotomy History of appendectomy History of cholecystectomy History of colonoscopy History of esophagogastroduodenoscopy (EGD) History of herniorrhaphy X 2 History of liver biopsy History of oral surgery Posts implanted in mandible for bottom denture History of tooth extraction Transplant LIVER 1994 IN [place] [facility]) Family History Father Family history of diabetes mellitus Myocardial infarction Heart failure Mother Dementia Denies family history of Ovarian cancer Prostate cancer Breast cancer Colorectal cancer Social History Smoking Status: Former smoker Tobacco Type: Cigarettes Cigarettes Per Day: QUIT 1971; Second Hand Exposure: No; Hx Alcohol Use: No Hx Substance Use: No Preferred Language: Welsh Communication Ability: Effective Visual Impairment: Limited Front Desk Admin Required: No Beliefs That Will Affect Care: None marital status: Current Living Situation: Spouse current occupational status: retired Feels Safe at Home: Yes Dental Care, Regularly: Yes Seatbelt Use: always Sunscreen Use: Yes Assistive Devices: Hearing Aid - Bilateral Review of Systems Constitutional: + fatigue Respiratory: + dyspnea (but improved today) Neurologic: + tremor(s) (improved today) Physical Exam Physical Exam: awake/alert Constitutional: no acute distress Respiratory: normal respiratory effort; no respiratory distress Results & Data ([facility]) Vital Signs (Past 12 Hours) Vital Signs Temp Pulse Pulse Resp BP Pulse Ox 02/03/21 07:48 36.3 C L 104 H 18 119/89 94 02/03/21 07:10 113 H 02/03/21 03:00 36.3 C L 100 H 20 158/93 H 95 02/03/21 01:37 99 H 02/02/21 23:00 36.6 C 110 H 20 146/86 H 97 PG Care Time/CCT Total # of Minutes Spent Total Time Spent with Patient: Total time spent is greater than 50% in coordination of care (as documented) at patient's floor/unit and/or counseling patient: Coding Level of Care Code 47200 Initial Inpt Care Lvl 3 Diagnoses Stage 5 chronic kidney disease not on chronic dialysis N18.5
[2021-02-03] MEDS: DUTASTERIDE PO SCH (12:26)
[2021-02-03 16:16] LABS: Hepatitis B Surf Ag Rflx Conf Neg (Neg)
[2021-02-03 16:51] LABS: Hepatitis B Surface Ab Quant < 3.10 mIU/mL (>or=10mIU/mL Immune); Hepatitis B Surface Antibody Non-Immune
[2021-02-03] MEDS: VENLAFAXINE HCL 50 MG TAB PO SCH (16:56)
--- NOTE | 2021-02-03 18:08 | Billing Data ---
Date of Service February 03, 2021 Coding Level of Care Code 73353 Subseq Hosp Care Lvl 3
[2021-02-03] MEDS: TAMSULOSIN HCL 0.4 MG CAP PO SCH (20:54)
[2021-02-03] MEDS: DONEPEZIL HCL 10 MG TAB PO SCH (20:54)
[2021-02-03] MEDS: FLUDROCORTISONE ACETATE 0.1 MG TAB PO SCH (20:55)
--- NOTE | 2021-02-04 07:12 | Hospitalist Progress Note ---
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 Stable. Worsening dyspnea on exertion, weakness, tremor -improving symptomatically -fistula placement 02/[address] Dale -urgent dialysis not indicated -continue bumetanide -daily BMP Dysphagia -no stroke on MRI -ongoing speech therapy evaluation/treatment; appreciate recommendations Pleural effusion, chronic pericardial effusion, possible pneumonia -echo (01/29): normal LV function, EF 55-60%, pericardial effusion chronic and small -s/p thoracentesis (01/31) removing 1750mL from right lung (transudative) -no signs of infectious process - unasyn discontinued -stable; maintaining adequate oxygenation on room air Hypocalcemia -repleting -continue calcitriol -appreciate ongoing nephrology recommendations Atrial fibrillation -continue heparin -continue metoprolol 100mg PO bid -eventual transition back to eliquis DM -glycemic consult -continue glargine 11u qAM -ISS Liver transplant recipient -continue prograf, prednisone, delgado Memory impairment -remote and recent memory relatively intact on exam -continue donepezil JANES -continue CPAP BPH -continue tamsulosin, dutasteride FENGI: pureed nectar thick diet DVT ppx: heparin Consults: nephrology, palliative care Code status: DNR/DNI (confirmed by palliative 02/02) Dispo: inpatient Admission and Anticipated Discharge Date Admission Date: January 28, 2021 Supervising Physician Co-Signing Physician Notes I personally examined the patient and verified all reeves points of history and exam, discussed case, and agree with decision making with Dr Burrows No new issues, no new problems. Vitals noted, in general he is awake and alert fatigued appearing with occasional myoclonic jerks all over. No distress. HEENT normocephalic atraumatic mucous membranes moist. ongoing tremulousness 1. Dysphagia. MRI without acute or subacute stroke. Ongoing speech eval and treat, appreciate recommendations 2. Hypocalcemia. Repleting. ongoing calcitriol 3. Tremor. New. Most likely from uremia, could be from gabapentin. Continue to follow, seems stable, anticipate following after HD too 4. Acute dyspnea with new bilateral pleural effusion. Essentially amounting to HFpEF, but predominantly from severely progressed renal disease. Will be giving trial to dialysis soon, stable on room air 5. Pleural effusion. s/p thoracentesis removing 1750mL from the right lung. 6. ?Pneumonia but unable to rule out definitively given concomitant pleural effusions. Continues to appear well after antibiotics have been stopped 7. Afib. Rate controlled. Anticoagulated with heparinanticipate resuming apixaban after his surgery has been done 8. CKD. We will be initiating hemodialysis this stay 9. DM. sugars variable, continue glycemic management 10. Hx of liver transplant. Continue home prograf, pred, and ursodiol. Dispo: Anticipate need for rehab or SNF after discharge, but anticipate a fairly prolonged hospital stay given that he is starting HD Subjective Patient seen in his room this morning; was sitting in a chair next to his bed, being washed by the nurse. No acute events overnight. Feels well today reporting an improvement in his breathing as well as his tremor. No new symptoms or complaints. Fatigue and weakness continue but have improved a bit. No fever, chills, CP, cough, wheezing, palpitations, or other new symptoms. Plan for permacath placement tomorrow. Review of Systems Review of Systems: See HPI Physical Exam Physical Exam: Awake, alert, frail man sitting in a chair next to the bed, no acute distress CV irregularly irregular rhythm, rate regular Resp- breath sounds quiet but clear bilaterally, no increased WOB Neuro: alert, oriented x4, generalized tremor minimal Psych: euthymic affect, cooperative, pleasant Results & Data Results & Data ([facility]) Vital Signs (Past 12 Hours) Vital Signs Temp Pulse Pulse Resp BP Pulse Ox 02/04/21 07:00 37 C 98 H 20 141/94 H 97 02/04/21 03:00 36.8 C 91 H 20 156/77 H 96 02/03/21 23:00 36.9 C 104 H 111 H 20 146/88 H 96 Resident Activity Tracking Resident Involvement: Resident Care Provided Care Provided: Adult [facility]
[2021-02-04] MEDS: ursodioL 300 MG CAP PO SCH ×2 (08:19→20:54)
[2021-02-04] MEDS: CALCITRIOL 0.25 MCG CAPSULE PO SCH (08:20)
[2021-02-04] MEDS: TACROLIMUS 1 MG CAP PO SCH ×2 (08:20→20:54)
[2021-02-04] MEDS: METOPROLOL SUCC 50MG EXT REL TAB PO SCH ×2 (08:21→20:53)
[2021-02-04] MEDS: predniSONE 5 MG TAB PO SCH (08:21)
[2021-02-04] MEDS: BUDESONIDE EC 3 MG CAP PO SCH (08:21)
[2021-02-04] MEDS: INSULIN ASPART 100 UNITS/ML 3 ML PEN SC SCH ×4 (08:24→21:03)
[2021-02-04] MEDS: INSULIN GLARGINE SOLOSTAR 100 UNITS/ML 3 ML PEN SC SCH (08:25)
[2021-02-04 08:47] LABS: Partial Thromboplastin Ratio 2.5
[2021-02-04 08:55] LABS: Partial Thromboplastin Time 66.1 Seconds (21.0-31.0)
--- NOTE | 2021-02-04 09:15 | Surgery Progress Note ---
Date of Service February 04, 2021 Assessment & Plan (1) Stage 5 chronic kidney disease not on chronic dialysis: Patient is feeling well, offering no complaints We are planning to proceed with placing a TDC tomorrow with Dr. Dale in the OR tomorrow - NPO at midnight - Please HOLD heparin gtt at 3am tomorrow morning Admission and Anticipated Discharge Date Admission Date: January 28, 2021 Subjective Patient offers no complaints this AM. Physical Exam Physical Exam: awake/alert Constitutional: no acute distress Results & Data ([facility]) Vital Signs (Past 12 Hours) Vital Signs Temp Pulse Pulse Resp BP Pulse Ox 02/04/21 07:00 37 C 98 H 20 141/94 H 97 02/04/21 03:00 36.8 C 91 H 20 156/77 H 96 02/03/21 23:00 36.9 C 104 H 111 H 20 146/88 H 96 PG Care Time/CCT Total # of Minutes Spent Total Time Spent with Patient: Total time spent is greater than 50% in coordination of care (as documented) at patient's floor/unit and/or counseling patient: Coding Level of Care Code 07535 Subseq Hosp Care Lvl 1 Diagnoses Stage 5 chronic kidney disease not on chronic dialysis N18.5
--- NOTE | 2021-02-04 09:44 | Nephrology Progress Note ---
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 Lawrence has developed uremic symptoms and fluid retention. He would like to proceed with hemodialysis at this time. TDC to be placed tomorrow. Lawrence plans to follow up with palliative care post discharge to assess how he is doing with treatment. Case management consulted to assist with HD arrangements post discharge. Anticipate first HD treatment possibly tomorrow or Tuesday depending on catheter placement. Diuretics have been held. Volume status remains acceptable for now. Left arm nephrology precaution for future AV fistula placement. Document I/O's and repeat metabolic profile tomorrow AM. (2) Bilateral pleural effusion: No significant interval change on exam. Diuretics have been held. Continue to monitor. (3) Secondary hyperparathyroidism of renal origin: Calcitriol 1 mcg QAM. PO4 not significantly elevated but slightly high. Will provide calcium carbonate with meals as tolerated. (4) Anemia: Chronic, stable. BENNY therapy deferred for Hgb >10. (5) Hypertension: BP and volume status acceptable. Remains on stable dose of metoprolol. Admission and Anticipated Discharge Date Admission Date: January 28, 2021 Subjective No acute events overnight. Lawrence feels well this AM. Breathing comfortably. Out of bed this AM and states he was ambulating in the room. Activity tolerance remains poor. Review of Systems Review of Systems: All systems reviewed & are unremarkable except as noted in HPI & below Physical Exam Constitutional: + thin and + frail appearing Eyes: + anicteric sclerae; no corneal abnormality ENMT: Ears: + hearing impairment Mouth: + dry oral mucous membranes Neck: normal visual inspection and trachea midline Respiratory: normal respiratory effort Auscultation: lungs clear to auscultation bilaterally and + diminished lung sounds Cardiovascular: Rate/Rhythm: regular rate and regular rhythm Heart Sounds: normal S1 and normal S2 Extremities: no edema Gastrointestinal (Abdomen): Percussion/Palpation: abdomen soft; abdomen nontender Musculoskeletal: Extremities: no cyanosis and no clubbing Skin: + turgor decreased and + ecchymosis Neurologic: awake Motor/Sensory: + asterixis Psychiatric: Orientation: alert and oriented x 3 Results & Data ([facility]) Vital Signs (Past 12 Hours) Vital Signs Temp Pulse Pulse Resp BP Pulse Ox 02/04/21 07:00 37 C 98 H 20 141/94 H 97 02/04/21 03:00 36.8 C 91 H 20 156/77 H 96 02/03/21 23:00 36.9 C 104 H 111 H 20 146/88 H 96 Laboratory Results Laboratory Results - last 24 hr 02/02/21 02/03/21 02/03/21 05:42 11:41 14:52 APTT PTT Ratio POC Glucose 246 H Ionized Calcium Phosphorus Tacrolimus Hep Bs Antigen Neg Hep Bs Antibody Non-Immune Hep Bs Antibody, Quant < 3.10 L Hep B Core IgM Ab 02/03/21 02/03/21 02/03/21 14:52 16:27 20:24 APTT PTT Ratio POC Glucose 128 H 169 H Ionized Calcium Phosphorus Tacrolimus Hep Bs Antigen Hep Bs Antibody Hep Bs Antibody, Quant Hep B Core IgM Ab Pending 02/04/21 02/04/21 02/04/21 07:13 07:58 07:58 APTT 66.1 H* PTT Ratio 2.5 POC Glucose 167 H Ionized Calcium Phosphorus 4.3 Tacrolimus Hep Bs Antigen Hep Bs Antibody Hep Bs Antibody, Quant Hep B Core IgM Ab 02/04/21 02/04/21 02/04/21 07:58 07:58 07:58 APTT PTT Ratio POC Glucose Ionized Calcium 0.90 L Phosphorus Tacrolimus Hep Bs Antigen Pending Hep Bs Antibody Pending Hep Bs Antibody, Quant Pending Hep B Core IgM Ab Pending PG Care Time/CCT Total # of Minutes Spent Total Time Spent with Patient: Total time spent is greater than 50% in coordination of care (as documented) at patient's floor/unit and/or counseling patient: Coding Level of Care Code 86409 Subseq Hosp Care Lvl 3 Diagnoses Stage 5 chronic kidney disease not on chronic dialysis N18.5 Bilateral pleural effusion J90 Secondary hyperparathyroidism of renal origin N25.81 Anemia D64.9 Hypertension I10 Hypertension type: unspecified (1) Hypertension Hypertension type: unspecified Qualified Code(s): I10 - Essential (primary) h ypertension
[2021-02-04 09:50] LABS: Hepatitis B Surface Ab Quant < 3.10 mIU/mL (>or=10mIU/mL Immune); Hepatitis B Surface Antibody Non-Immune
[2021-02-04 10:40] LABS: Hepatitis B Surf Ag Rflx Conf Neg (Neg)
[2021-02-04] MEDS: CALCIUM CARBONATE 500 MG CHEWABLE TAB PO SCH ×2 (10:57→16:50)
[2021-02-04] MEDS: DUTASTERIDE PO SCH (12:06)
[2021-02-04] MEDS: ONDANSETRON INJ 2 MG/ML 2 ML VIAL IV PRN (13:19)
[2021-02-04 13:29] LABS: BUN Creatinine Ratio 15.4 (10-20); Calcium 7.7 mg/dl (8.5-10.1); Creatinine Clr Calc Pharmacy 12.8 ml/min; Est GFR (African American) 12.9; Est GFR (Non-African American) 11.2; Potassium 3.5 mmol/L (3.5-5.1)
[2021-02-04] MEDS: HEPARIN SODIUM/DEXTROSE 25,000 UNITS/500 ML BAG IV SCH (13:53)
--- NOTE | 2021-02-04 14:10 | Pharmacy Report ---
Pharmacy Glycemic Short Note 2 - Date of Service February 04, 2021 - Glycemic Short BSG Results (Last 24 hours): 02/03/21 02/03/21 02/04/21 16:27 20:24 07:13 Glucose POC Glucose 128 H 169 H 167 H 02/04/21 02/04/21 11:43 12:19 Glucose 236 H POC Glucose 243 H OUTPATIENT ANTIDIABETIC REGIMEN: * Tresiba 11 units SC AM * Novolog 7-9 units SC breakfast, 5-7 units SC lunch, 3-4 units dinner * HbA1c = 7.6% (01/29/21) ASSESSMENT: 02/04 * Patient received 35 units of insulin yesterday, of which 11 units were basal * Fasting BSG trending down, 167 mg/dL - patient NPO tomorrow AM for dialysis cath placement / plan to reduce AM Lantus * Lunch BSGs trending upward, may consider tightening CR in AM at breakfast at account for this PLAN FOR INPATIENT GLYCEMIC CONTROL: * Basal insulin * Lantus 11 units SQ AM * Bolus insulin - no change * NovoLog per scale ACHS or Q6hrs while NPO * Goal Range: Low 110 mg/dL - High 140 mg/dL * Correction Factor: 20 mg/dL/unit * Nutritional / Prandial insulin per carb ratio of 1 unit per 7 grams CHO consumed PLAN FOR DISCHARGE: * HbA1c is 7.6% from this admission which has increased from 7.1% in August 2020. This is still below his goal HbA1c of 8%. * Continue with outpatient regimen as long as patient is not experiencing any hypoglycemia at home. Report any persistent highs/lows to outpatient provider.
--- NOTE | 2021-02-04 15:17 | Anesthesiology Consultation ---
Date of Service February 04, 2021 Covid 19 negative on 01/28/21. Assessment & Plan (1) Encounter for pre-operative examination: Chart Review Chart Review: Acceptable Risk for Surgery (patient to be evaluated day of procedure by anesthesiologist) and Patient NOT seen in Pre Admission Testing Consults Requested none History Surgery Operation Date: 02/05/21 09:35 Proposed Procedures p Insertion of Tunnel Dialysis Catheter - Ramy Dale, DO Height/Weight Height: 5 ft 11 in Weight: 71 kg Allergies Allergy/AdvReac Type Severity Reaction Status Date / Time aspirin AdvReac Unknown high doses Verified 01/28/21 19:57 contrindicated d/t hx liver transplant gabapentin AdvReac Unknown shakiness Verified 02/01/21 20:25 and impaired mobility ibuprofen AdvReac Unknown not to Verified 01/28/21 19:57 take due to transplant Medications Home Medications Medication Instructions Recorded Confirmed Last Taken calcium carbonate [Calcium 600] 600 mg PO BID 01/09/19 01/28/21 11/26/20 08:00 prednisone 5 mg PO QAM 01/09/19 01/28/21 11/27/20 09:00 ursodiol 300 mg PO BID 01/09/19 01/28/21 11/26/20 21:00 [facility] 1 cap PO QAM 07/10/19 01/28/21 11/25/20 08:00 lidocaine 5 % topical patch 1 patch TOP DAILY PRN 08/10/19 01/28/21 Unknown polyethylene glycol 3350 17 gram 17 gm PO DAILY PRN 08/10/19 01/28/21 11/24/20 08:00 oral powder packet aspirin 81 mg PO QAM 03/17/20 01/28/21 11/26/20 08:00 hydrocortisone 2.5 % topical cream 1 appln UT DAILY PRN #28.35 gm 03/18/20 01/28/21 11/26/20 12:00 with perineal applicator Prolia 60 mg/mL subcutaneous 60 mg SUBCUT Q6MO #1 ml NS 07/22/20 01/28/21 Unknown syringe apixaban 2.5 mg tablet 2.5 mg PO BID #60 tab 08/21/20 01/28/21 11/26/20 08:00 menthol 0.44 %-zinc oxide 20.6 % 1 applic TOPICAL QID PRN #113 g 09/02/20 01/28/21 11/26/20 12:00 topical ointment OneTouch Delica Lancets 33 gauge #300 ea NS 09/12/20 01/16/21 Unknown OneTouch Verio test strips #300 ea NS 09/12/20 01/16/21 Unknown meclizine 25 mg tablet 25 mg PO DAILY PRN #30 tab 10/09/20 01/28/21 Unknown venlafaxine 37.5 mg 37.5 mg PO DAILY@1700 #30 cap 10/09/20 01/28/21 11/26/20 17:00 capsule,extended release 24 hr calcitriol 0.5 mcg capsule 0.5 mcg PO QAM 90 Days #90 cap 10/10/20 01/28/21 11/26/20 08:00 Tresiba FlexTouch U-100 11 unit SUBCUT QAM 11/21/20 01/28/21 11/26/20 08:00 donepezil 10 mg PO HS 11/21/20 01/28/21 11/26/20 21:00 dutasteride 0.5 mg PO QDL 11/21/20 01/28/21 11/26/20 08:00 fludrocortisone 0.1 mg PO QPM 11/21/20 01/28/21 11/26/20 21:00 tacrolimus [Prograf] 2 mg PO BID 11/21/20 01/28/21 11/27/20 09:00 tamsulosin [Flomax] 0.4 mg PO QPM 11/21/20 01/28/21 11/26/20 21:00 budesonide 3 mg 9 mg PO DAILY #90 ea 11/28/20 01/28/21 Unknown capsule,delayed,extended release metoprolol succinate 50 mg 100 mg PO BID #120 tab 01/01/21 01/28/21 Unknown tablet,extended release 24 hr cyanocobalamin (vitamin B-12) 1,000 mcg PO DAILY #30 cap 01/09/21 01/28/21 Unknown 1,000 mcg capsule insulin aspart U-100 100 unit/mL See Rx Instructions SUBCUT .COMPLEX 01/09/21 01/28/21 Unknown (3 mL) subcutaneous pen amitriptyline 10 mg tablet 10 mg PO .qhs #30 tab 01/16/21 01/28/21 Unknown furosemide 20 mg tablet 40 mg PO QAM #90 tab 01/16/21 01/28/21 Unknown acetaminophen 500 mg PO .WITH LUNCH PRN 01/28/21 01/28/21 Unknown acetaminophen 650 mg PO BID PRN 01/28/21 01/28/21 Unknown gabapentin 100 mg PO TID PRN 01/28/21 01/28/21 Unknown Active Medications Generic Name Dose Route Start Last Admin Trade Name Curt PRN Reason Stop Dose Admin Amitriptyline HCl 10 mg 01/28/21 22:53 01/30/21 20:47 Amitriptyline Hcl 10 Mg Tab PO 02/27/21 22:52 10 mg HS MIRIAM Administration Budesonide 9 mg 01/29/21 09:00 02/04/21 08:21 Budesonide Ec 3 Mg Cap PO 02/28/21 08:59 9 mg DAILY MIRIAM Administration Bumetanide 2 mg 01/30/21 09:00 01/31/21 09:00 Bumetanide 1 Mg Tab PO 03/01/21 08:59 Not Given BID MIRIAM Calcitriol 1 mcg 02/01/21 09:00 02/04/21 08:20 Calcitriol 0.25 Mcg Capsule PO 03/03/21 08:59 1 mcg QAM MIRIAM Administration Calcium Carbonate 1,000 mg 02/04/21 11:30 02/04/21 10:57 Calcium Carbonate 500 Mg Chewable Tab PO 03/06/21 11:29 1,000 mg AC MIRIAM Administration Donepezil HCl 10 mg 01/28/21 22:53 02/03/21 20:54 Donepezil Hcl 10 Mg Tab PO 02/27/21 22:52 10 mg HS MIRIAM Administration Dutasteride 1 ea 01/30/21 12:00 02/04/21 12:06 Dutasteride PO 03/01/21 11:59 1 ea DAILY@1200 MIRIAM Administration Fludrocortisone Acetate 0.1 mg 01/28/21 22:53 02/03/21 20:55 Fludrocortisone Acetate 0.1 Mg Tab PO 02/27/21 22:52 0.1 mg QPM MIRIAM Administration Heparin Sodium/Dextrose 25,000 units in 500 mls @ 23 mls/hr 01/28/21 21:00 02/04/21 13:53 Heparin Sodium/Dextrose IV 02/27/21 20:59 1,150 units/hr .[id number] MIRIAM 23 mls/hr Administration Protocol 1,150 UNITS/HR Insulin Aspart 0 units 02/02/21 07:30 02/04/21 12:08 Insulin Aspart 100 Units/Ml 3 Ml Pen SC 03/04/21 07:29 11 units ACHS MIRIAM Administration Lidocaine 1 patch 01/28/21 22:53 01/29/21 13:38 Lidocaine 5% 1 Patch TD 02/27/21 22:52 1 patch DAILY PRN Administration Pain Melatonin 3 - 6 mg 01/30/21 01:19 01/30/21 23:52 Melatonin 3 Mg Tab PO 03/01/21 01:18 6 mg HS PRN Administration Sleep Metoprolol Succinate 100 mg 01/28/21 22:53 02/04/21 08:21 Metoprolol Succ 50mg Ext Rel Tab PO 02/27/21 22:52 100 mg BID MIRIAM Administration Ondansetron HCl 4 mg 01/31/21 08:30 02/04/21 13:19 Ondansetron Inj 2 Mg/Ml 2 Ml Vial IV 03/02/21 08:29 4 mg Q6H PRN Administration Nausea Prednisone 5 mg 01/29/21 09:00 02/04/21 08:21 Prednisone 5 Mg Tab PO 02/28/21 08:59 5 mg QAM MIRIAM Administration Tacrolimus 2 mg 01/28/21 22:53 02/04/21 08:20 Tacrolimus 1 Mg Cap PO 02/27/21 22:52 2 mg BID MIRIAM Administration Tamsulosin HCl 0.4 mg 01/28/21 22:53 02/03/21 20:54 Tamsulosin Hcl 0.4 Mg Cap PO 02/27/21 22:52 0.4 mg QPM MIRIAM Administration Ursodiol 300 mg 01/28/21 22:53 02/04/21 08:19 Ursodiol 300 Mg Cap PO 02/27/21 22:52 300 mg BID MIRIAM Administration Venlafaxine HCl 25 mg 02/02/21 17:00 02/03/21 16:56 Venlafaxine Hcl 50 Mg Tab PO 03/04/21 16:59 25 mg DAILY@1700 MIRIAM Administration Past Medical History Medical History Anemia Atrial fibrillation dx 08/2020 - on Eliquis -- follows with Dr. Madrigal Bright red rectal bleeding Cancer SKIN CANCER-BASAL CELL/SQUAMOUS CHF (congestive heart failure) CKD (chronic kidney disease) Stage 4 - Follows with Dr. Rider Code status needs review Compression fracture Depression, major, recurrent, in remission Diarrhea Diverticular disease DM type 2 (diabetes mellitus, type 2) IDDM Hypertension Palliative care encounter Pancreatitis HX Pericardial effusion Pericardial effusion chronic Sclerosing cholangitis S/P liver transplant 1994 Secondary hyperparathyroidism of renal origin Sleep apnea BiPAP Stage 5 chronic kidney disease not on chronic dialysis Vitamin D deficiency Past Family History Family History Father Family history of diabetes mellitus Myocardial infarction Heart failure Mother Dementia Denies family history of Ovarian cancer Prostate cancer Breast cancer Colorectal cancer Past Surgical History Surgical History Fusion of spine LUMBAR H/O exploratory laparotomy History of appendectomy History of cholecystectomy History of colonoscopy History of esophagogastroduodenoscopy (EGD) History of herniorrhaphy X 2 History of liver biopsy History of oral surgery Posts implanted in mandible for bottom denture History of tooth extraction Transplant LIVER 1994 IN [place] ([facility]) Social History Smoking Status: Former smoker tobacco type: cigarettes Smoking cigarettes per day: QUIT 1971 Hx Alcohol Use: No Hx Substance Use: No substance use type: does not use Physical Exam Vital Signs Last Vital Signs Temp 36.6 C 02/04/21 12:05 Pulse 88 02/04/21 12:23 Resp 20 02/04/21 12:05 BP 147/97 H 02/04/21 12:05 Pulse Ox 97 02/04/21 12:05 Testing Laboratory Results 02/03/21 07:41 02/04/21 12:19 PT 11.1 Seconds (9.0-12.0) 01/29/21 06:46 INR 1.1 (0.9-1.1) 01/29/21 06:46 APTT 66.1 Seconds (21.0-31.0) H* 02/04/21 07:58 Hemoglobin A1c 7.6 % (4.5-5.6) H 01/29/21 06:46 Urine Color Yellow 01/28/21 23:23 Urine Appearance Clear (Clear) 01/28/21 23:23 Urine pH 7.5 (4.5-7.5) 01/28/21 23:23 Ur Specific [place] 1.009 (1.000-1.030) 01/28/21 23:23 Urine Protein 1+ (Negative) H 01/28/21 23:23 Urine Glucose (UA) Negative (Negative) 01/28/21 23:23 Urine Ketones Negative (Negative) 01/28/21 23:23 Urine Nitrite Negative (Negative) 01/28/21 23:23 Ur Leukocyte Esterase Negative (Negative) 01/28/21 23:23 Urine WBC (Auto) 0 /hpf (0-5) 01/28/21 23:23 Urine RBC (Auto) 0-4 /hpf (0-4) 01/28/21 23:23 U Hyaline Cast (Auto) 1-5 /lpf (0-5) 01/28/21 23:23 U Epithel Cells (Auto) 0-5 /lpf (0-5) 01/28/21 23:23 Urine Bacteria (Auto) Negative (Negative) 01/28/21 23:23 01/31/21 Unknown Gram Stain - Final Pleural Fluid Aerobic and Anaerobic Culture - Preliminary No growth to date. 01/28/21 21:03 Aerobic Blood Culture - Final Blood No growth in Aerobic bottle after 5 days. Anaerobic Blood Culture - Final No growth in Anaerobic bottle after 5 days. 01/28/21 20:56 Aerobic Blood Culture - Final Blood No growth in Aerobic bottle after 5 days. Anaerobic Blood Culture - Final No growth in Anaerobic bottle after 5 days. 01/31/21 Unknown Acid Fast Bacilli Smear - Final Pleural Fluid 02/04/21 02/04/21 11:43 07:13 POC Glucose 243 H 167 H Electrocardiogram Date: 01/31/21 Afib with PVCs, rate 91, ST and T wave abnormality possible lateral ischemia, prolonged QT Chest X-Ray Date: 02/01/21 XR chest 1V portable HISTORY: 80 years-old Male pulmonary edema acute shortness of breath with pulmonary edema COMPARISON: Chest radiograph 01/31/2021 TECHNIQUE: Portable AP view of the chest FINDINGS: Cardiomegaly. Pulmonary vascular congestion with mild interstitial coarsening. Small pleural effusions with mildly progressed bibasilar opacities. No pneumothorax. Bones appear grossly intact. IMPRESSION: 1. Cardiomegaly with interval development of mild pulmonary edema. 2. Small pleural effusions with progressive bibasilar opacities suggestive of atelectasis versus pneumonitis. ACT 112: Negative or not required by law. The above report was generated using voice recognition software. It may contain grammatical, syntax or spelling errors. Electronically signed by: Delfin Thurman M.D. 02/01/2021 9:53 AM Dictated: 02/01/21951Transcribed: 02/01/21951 Echocardiogram Date: 01/29/21 EF: 55-60 LV Function: normal Other Findings: + LVH (moderate concentric) Valvular Disease: + (mild to moderate) and + MR (mild) RSVP 30-40 mmHg, small to moderate pericardial effusion
[2021-02-04] MEDS: VENLAFAXINE HCL 50 MG TAB PO SCH (16:51)
--- NOTE | 2021-02-04 17:24 | Billing Data ---
Date of Service February 04, 2021 Coding Level of Care Code 28415 Subseq Hosp Care Lvl 2
[2021-02-04] MEDS: FLUDROCORTISONE ACETATE 0.1 MG TAB PO SCH (20:54)
[2021-02-04] MEDS: TAMSULOSIN HCL 0.4 MG CAP PO SCH (20:54)
[2021-02-04] MEDS: DONEPEZIL HCL 10 MG TAB PO SCH (20:54)
[2021-02-05] MEDS ORDERED: HEPARIN DRIP- STOP ORDER ONE (03:00)
[2021-02-05 07:28] LABS: Partial Thromboplastin Ratio 1.2; Partial Thromboplastin Time 31.9 Seconds (21.0-31.0)
[2021-02-05] MEDS: CALCIUM CARBONATE 500 MG CHEWABLE TAB PO SCH ×3 (07:54→18:11)
--- NOTE | 2021-02-05 08:04 | Hospitalist Progress Note ---
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 Stable. Worsening dyspnea on exertion, weakness, tremor -s/p right jugular tunneled dialysis catheter placement 02/[address] Dale -patient tolerated procedure well; some initial concern for pneumothorax, but this was not seen on serial CXR -had first HD today (2 hours) -heparin gtt held; plan to resume eliquis tomorrow -continue bumetanide -daily BMP Dysphagia -no stroke on MRI -ongoing speech therapy evaluation/treatment; appreciate recommendations -pureed nectar thick diet Pleural effusion, chronic pericardial effusion, possible pneumonia -echo (01/29): normal LV function, EF 55-60%, pericardial effusion chronic and small -s/p thoracentesis (01/31) removing 1750mL from right lung (transudative) -no signs of infectious process - unasyn discontinued -stable; maintaining adequate oxygenation on room air Hypocalcemia -repleting -continue calcitriol -appreciate ongoing nephrology recommendations Atrial fibrillation -heparin held for surgery as noted above -continue metoprolol 100mg PO bid -eventual transition back to eliquis DM -glycemic consult -continue glargine 11u qAM -ISS Liver transplant recipient -continue prograf, prednisone, delgado Memory impairment -remote and recent memory relatively intact on exam -continue donepezil JANES -continue CPAP BPH -continue tamsulosin, dutasteride FENGI: pureed nectar thick diet DVT ppx: heparin Consults: nephrology, palliative care Code status: DNR/DNI (confirmed by palliative 02/02) Dispo: inpatient Admission and Anticipated Discharge Date Admission Date: January 28, 2021 Supervising Physician Co-Signing Physician Notes I personally examined the patient and verified all reeves points of history and exam, discussed case, and agree with decision making with Dr Burrows feeling pretty good post dialysis Vitals noted, pleasant aao nad heent nc at mmm neck very faint crepitis around site, nursing notes less than even earlier. breathing unlabored no accessory muscles good effort skin no rashes no pallor or icterus 1. Dysphagia. MRI without acute or subacute stroke. Ongoing speech eval and treat, appreciate recommendations 2. Hypocalcemia. Repleting. ongoing calcitriol 3. Tremor. New. Most likely from uremia, could be from gabapentin. Continue to follow, seems stable, anticipate following after HD too 4. Acute dyspnea with new bilateral pleural effusion. Essentially amounting to HFpEF, but predominantly from severely progressed renal disease. started HD. 5. Pleural effusion. s/p thoracentesis removing 1750mL from the right lung. 6. ?Pneumonia but unable to rule out definitively given concomitant pleural effusions. Continues to appear well after antibiotics have been stopped 7. Afib. Rate controlled. resume anticoagulation. 8. CKD. started HD 9. DM. sugars variable, continue glycemic management 10. Hx of liver transplant. Continue home prograf, pred, and ursodiol. Dispo: Anticipate need for rehab or SNF after discharge, but anticipate a fairly prolonged hospital stay given that he is starting HD Subjective Spoke with patient's at length today while he was getting his first HD treatment. She reports he's feeling well after surgery, complaining only of some neck pain, soreness of both arms, and some mild hip pain. He had lunch after his procedure though he did not finish it. She said he did not complain of CP or SOB. Her questions were asked and answered, mostly about what the next few days looked like. She appreciated our conversation and was looking forward to patient returning from HD. Review of Systems Review of Systems: See attending documentation Physical Exam Physical Exam: See attending documentation Results & Data Results & Data ([facility]) Vital Signs (Past 12 Hours) Vital Signs Temp Pulse Pulse Resp BP Pulse Ox 02/05/21 07:24 36.9 C 81 18 145/73 H 96 02/05/21 03:59 36.9 C 63 18 157/69 H 97 02/05/21 00:00 98 H 02/04/21 23:00 36.9 C 73 18 149/83 H 94 Resident Activity Tracking Resident Involvement: Resident Care Provided Care Provided: Adult Hospital Medicine
--- NOTE | 2021-02-05 08:13 | History & Physical Bridge Note ---
Date of Service February 05, 2021 History & Physical Bridge Note I have examined the patient, reviewed the History & Physical and in the interval since the performance of the History & Physical I have noted the following changes of clinical significance: no changes noted discussed previously with pt's . discussed options/risks ( bleeding/infection/malfunction of port/dvt/pe/mi/cva/vascular injury /pneumothorax etc... questions answered. will proceed today with tunnelled HD cath.
[2021-02-05] MEDS ORDERED: INSULIN GLARGINE SOLOSTAR 100 UNITS/ML 3 ML PEN SC SCH ×2 (09:00)
[2021-02-05] MEDS: INSULIN ASPART 100 UNITS/ML 3 ML PEN SC SCH ×4 (09:01→21:57)
[2021-02-05 09:38] LABS: Hemoglobin 9.4 g/dL (14.0-18.0)
[2021-02-05] MEDS ORDERED: ceFAZolin 2000MG 2,000 MG/15 ML SYR IV ONE (09:40)
[2021-02-05] MEDS ORDERED: ePHEDrine sulfate 50 MG/ML AMP IV PRN (09:40)
[2021-02-05] MEDS ORDERED: fentaNYL citrate 100 MCG/2 ML VIAL IV PRN (09:40)
[2021-02-05] MEDS ORDERED: ONDANSETRON INJ 2 MG/ML 2 ML VIAL IV PRN (09:40)
[2021-02-05] MEDS ORDERED: ATROPINE SULFATE 0.1 MG/ML 10ML SYR IV PRN (09:40)
[2021-02-05] MEDS ORDERED: LIDOCAINE HCL 1% 20 ML VIAL ONE (09:42)
[2021-02-05] MEDS ORDERED: ceFAZolin 2,000 MG/15 ML IV PUSH IV ONE (09:42)
[2021-02-05] MEDS ORDERED: HEPARIN SOD (PORCINE) 5,000 UNITS/ML VIAL ONE (09:42)
[2021-02-05 10:02] LABS: BUN Creatinine Ratio 15.3 (10-20); Calcium 7.7 mg/dl (8.5-10.1); Creatinine Clr Calc Pharmacy 13.9 ml/min; Est GFR (African American) 14.1; Est GFR (Non-African American) 12.1; Potassium 3.2 mmol/L (3.5-5.1)
[2021-02-05] MEDS ORDERED: PROPOFOL IV EMULSION 10 MG/ML 20 ML VIAL IV ONE (10:06)
[2021-02-05] MEDS ORDERED: fentaNYL citrate 100 MCG/2 ML VIAL ONE (10:06)
[2021-02-05] MEDS ORDERED: LIDOCAINE HCL 2% 2 ML VIAL/AMP(20MG/ML) INFIL ONE (10:06)
--- NOTE | 2021-02-05 11:02 | Medical Student Progress Note ---
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 Pt's current GFR is 12.1 and there's evidence of albuminuria per his most recent alb/cr of 3.6 . Indications for urgent dialysis in this patient include uremic symptoms at admission as well as fluid overload causing effusions at admission. Patient is currently euvolemic. Tunnel Catheter for dialysis would be placed in the morning . Usable by afternoon. Consider running a low 4K solution to help replete correct hypokalemia. Due to right arm trauma, left arm is under nephrology precaution for future fistula placement Present on Admission?: Yes (2) Secondary hyperparathyroidism of renal origin: Continue calcitriol. CaCO3 should be taken with meals. This would provide calcium supplementation as well as help decrease phosphate reabsorption reducing total body phosphate. PTH should be measured to monitor response to treatment Present on Admission?: Yes (3) Anemia: Stable. Defer EPO therapy as Hgb > 10 Present on Admission?: Yes (4) Hypertension: Stable. Continue Metoprolol Hypertension type: unspecified Qualified Code(s): I10 - Essential (primary) hypertension Subjective Patient appeared comfortable lying down in his bed. He states that he feels overall better and has no complaints. He is scheduled for tunnel catheter placement today at 9:15am. He hasn't had any difficulty urinating although he admits that he has been producing less urine. Pt denies any chest pain, cough, SOB, palpitations, headache, Review of Systems Constitutional: as per Subjective / HPI Respiratory: as per Subjective / HPI Cardiovascular: as per Subjective / HPI Gastrointestinal: as per Subjective / HPI Genitourinary: + as per Subjective / HPI Physical Exam Constitutional: average body habitus Eyes: PERRL, conjunctivae normal, anicteric sclerae ENMT: external ear and nose normal, oropharynx normal Ears: + hearing impairment Neck: normal visual inspection Respiratory: normal respiratory effort Auscultation: lungs clear to auscultation bilaterally and + diminished lung sounds (in the lung bases) Cardiovascular: RRR, no murmur, no edema Gastrointestinal (Abdomen): normal bowel sounds, soft, nontender, no hepatosplenomegaly Musculoskeletal: Head/Neck/Chest: normocephalic and head atraumatic Skin: normal turgor, + ecchymosis (Right forearm) and + purpura (mild, scattered on the bilateral upper extremities) Neurologic: PERRL, EOMI, accommodation nl, no face palsy, no dysarthria Psychiatric: A+Ox3, euthymic affect Results & Data ([facility]) Vital Signs (Past 12 Hours) Vital Signs Temp Pulse Pulse Resp BP Pulse Ox 02/05/21 09:20 36.9 C 91 H 18 97 02/05/21 07:24 36.9 C 81 18 145/73 H 96 02/05/21 03:59 36.9 C 63 18 157/69 H 97 02/05/21 00:00 98 H 02/04/21 23:00 36.9 C 73 18 149/83 H 94
--- NOTE | 2021-02-05 11:28 | XRay Report ---
SINGLE VIEW CHEST CLINICAL HISTORY: Central venous catheter placement. FINDINGS: An AP, portable, supine chest radiograph is compared to study dated 02/01/2021 and correlate d with chest CT dated 01/28/2021. The examination is degraded by portable technique and patient rotati on. A right internal jugular central venous catheter is new from previous. The tip projects over the SVC. The heart is markedly enlarged noting atherosclerotic calcification of the thoracic aorta. There is pulmonary vascular congestion. Bilateral airspace opacities are noted. There are layering pleural effusions. No pneumothorax is seen. The skeletal structures are osteopenic. The bony thorax is gross ly intact. IMPRESSION: 1. A right internal jugular central venous catheter is new from previous. No pneumothorax is seen. 2. Cardiomegaly with evidence of congestive failure. 3. Layering pleural effusions. 4. Bilateral airspace opacities likely represent pulmonary edema. Correlate clinically for evidence o f a superimposed infectious/inflammatory pneumonitis. ACT 112: Negative or not required by law. Electronically signed by: Geo Ramos M.D. 02/05/2021 11:26 AM
--- NOTE | 2021-02-05 11:34 | Pharmacy Report ---
Pharmacy Glycemic Short Note 2 - Date of Service February 05, 2021 - Glycemic Short BSG Results (Last 24 hours): 02/04/21 02/04/21 02/04/21 11:43 12:19 16:26 Glucose 236 H POC Glucose 243 H 113 H 02/04/21 02/05/21 02/05/21 20:46 07:39 08:37 Glucose 107 H POC Glucose 86 120 H 02/05/21 09:23 Glucose POC Glucose 118 H OUTPATIENT ANTIDIABETIC REGIMEN: * Tresiba 11 units SC AM * Novolog 7-9 units SC breakfast, 5-7 units SC lunch, 3-4 units dinner * HbA1c = 7.6% (01/29/21) ASSESSMENT: 02/05 * Pt has received 29 units of insulin over the past 24hrs * 11 units of basal with Lantus * 18 units of bolus with NovoLog * BSGs [phone] mg/dl * Pt NPO today for tunnel cath placement. Will decrease Lantus ~25% for NPO 02/04 * Patient received 35 units of insulin yesterday, of which 11 units were basal * Fasting BSG trending down, 167 mg/dL - patient NPO tomorrow AM for dialysis cath placement / plan to reduce AM Lantus * Lunch BSGs trending upward, may consider tightening CR in AM at breakfast at account for this PLAN FOR INPATIENT GLYCEMIC CONTROL: * Basal insulin * Lantus 8 units SQ x 1 dose this AM for NPO, then resumed Lantus 11 units SQ AM 02/06/21 * Bolus insulin - no change * NovoLog per scale ACHS or Q6hrs while NPO * Goal Range: Low 110 mg/dL - High 140 mg/dL * Correction Factor: 20 mg/dL/unit * Nutritional / Prandial insulin per carb ratio of 1 unit per 7 grams CHO consumed PLAN FOR DISCHARGE: * HbA1c is 7.6% from this admission which has increased from 7.1% in August 2020. This is still below his goal HbA1c of 8%. * Continue with outpatient regimen as long as patient is not experiencing any hypoglycemia at home. Report any persistent highs/lows to outpatient provider.
--- NOTE | 2021-02-05 11:48 | Operative Report ---
PG Post Operative Report Pre & Post Diagnosis Operation Date: 02/05/21 09:35 Pre-Op Diagnosis: End Stage Renal Disease Post-Op Diagnosis: End Stage Renal Disease I identified the patient and participated in the time-out.: Yes Procedure Operation Date: 02/05/21 09:35 Actual Procedures p Insertion of Tunneled Dialysis Catheter, Right Jugular Approach, Ultrasound Localization of Right Jugular Vein, Fluoroscopy for Positioning(Right) - Ramy Dale DO Surgeon Ramy Dale DO Apns jose Apple Estimated Blood Loss 20 Findings Consistent with Post-Op Diagnosis Specimens none Description of Procedure After informed consent was obtained the patient was taken to the operating room and placed in supine position. After successful placement of the laryngeal mask airway both arms were tucked. The upper chest bilateral neck and shoulder was sterilely prepped and draped in usual fashion. The head was turned slightly to the left and the sternocleidomastoid muscle was marked. The patient was placed in a slight Trendelenburg position. We used the sonosite device to identify the right internal jugular vein. Initially when I went to cannulate it I rather readily encountered what appeared to be pleural effusion fluid. There is also a small amount of air bubbles within it perhaps consistent with his known layering pleural effusion. It took me 3 attempts total. On the third attempt I was able to access the vein and advanced the guidewire under fluoroscopy in the superior vena cava. Next I made a small skin incision in the right upper chest as well as extended the incision at the site of the guidewire. We used a tunneling device to pull the hemodialysis catheter from the chest incision up through the neck incision. Next I advanced a vascular dilator over the guidewire. This was followed by the peel-away sheath. Again all this was done under fluoroscopy. Once peel-away sheath was in place we then advanced the dialysis catheter through the peel-away sheath into the superior vena cava. We then peeled the sheath away leaving the catheter in place. Both ports readily withdrew dark v enous blood and were flushed with at least 20 cc of sterile saline. They were then flushed with 1.6 cc of heparin each. The neck incision was closed using 4- 0 Monocryl and covered with Dermabond glue. The proximal port of the catheter was secured to the chest wall skin using 2-0 nylon. The patient tolerated the procedure well. Because of the pleural effusion/air bubbles I got an on table chest x-ray. I discussed this with radiology who initially felt there was no evidence of a pneumothorax. The patient had no respiratory difficulties and anesthesia had no trouble with pressures or ventilating him. We therefore extubate him and transferred him to recovery in stable condition. In retrospect radiology felt as though he may have a small apical pneumothorax. We will repeat his chest x-ray in a couple hours and monitor him very closely for any respiratory distress. My physician stonecutter assistant was present for the entire case and was instrumental in assisting. I attest to the content of the Intraoperative Record and any orders documented therein. Any exceptions are noted below.
[2021-02-05] MEDS ORDERED: ONDANSETRON INJ 2 MG/ML 2 ML VIAL ONE (11:49)
--- NOTE | 2021-02-05 12:21 | Nephrology Progress Note ---
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 HD catheter placed by Dr. Dale this AM. I will attempt to coordinate first HD treatment this afternoon. Orders for HD entered into EMR and I have left a message for the HD nurse to contact me when available. Hypokalemia to be corrected with HD. UF goal 0.5-1 L as tolerated. Left arm nephrology precaution for future AV fistula placement. Document I/O's and repeat metabolic profile tomorrow AM. Anticipate HD tomorrow as well. (2) Bilateral pleural effusion: Will attempt 0.5-1 L UF today with HD. (3) Secondary hyperparathyroidism of renal origin: Calcitriol 1 mcg QAM. Calcium carbonate with meals started yesterday. (4) Anemia: Chronic, stable. BENNY therapy deferred for Hgb >10. (5) Hypertension: BP and volume status acceptable. Remains on stable dose of metoprolol. Admission and Anticipated Discharge Date Admission Date: January 28, 2021 Subjective No acute events overnight. Lawrence was in the OR for permcath placement this AM. I received confirmation of uncomplicated catheter placement from Dr. Dale. The patient was seen and evaluated by the medical student this AM. HD will be coordinated this afternoon based on how Lawrence is feeling when he leaves recovery and returns to the medical floor. Results & Data ([facility]) Vital Signs (Past 12 Hours) Vital Signs Temp Pulse Pulse Pulse Resp BP BP 02/05/21 12:10 95 H 13 132/80 02/05/21 12:00 102 H 12 143/79 H 02/05/21 11:50 100 H 10 L 142/84 H 02/05/21 11:40 36.4 C L 93 H 12 127/81 02/05/21 09:20 36.9 C 91 H 18 02/05/21 09:00 98 H 02/05/21 07:24 36.9 C 81 18 145/73 H 02/05/21 03:59 36.9 C 63 18 157/69 H Pulse Ox 02/05/21 12:10 100 02/05/21 12:00 100 02/05/21 11:50 100 02/05/21 11:40 100 02/05/21 09:20 97 02/05/21 09:00 02/05/21 07:24 96 02/05/21 03:59 97 Laboratory Results Laboratory Results - last 24 hr 02/03/21 02/04/21 02/04/21 14:52 07:58 12:19 Hgb Hct APTT PTT Ratio Sodium 136 Potassium 3.5 Chloride 101 Carbon Dioxide 27 Anion Gap 8.0 BUN 72 H Creatinine 4.61 H* Est Cr Clr Drug Dosing 12.8 Est GFR ( Amer) 12.9 Est GFR (Non-Af Amer) 11.2 BUN/Creatinine Ratio 15.4 Glucose 236 H POC Glucose Calcium 7.7 L Ionized Calcium Phosphorus Hep B Core IgM Ab Cancelled NON-REACTIVE 02/04/21 02/04/21 02/05/21 16:26 20:46 06:31 Hgb Hct APTT 31.9 H PTT Ratio 1.2 Sodium Potassium Chloride Carbon Dioxide Anion Gap BUN Creatinine Est Cr Clr Drug Dosing Est GFR ( Amer) Est GFR (Non-Af Amer) BUN/Creatinine Ratio Glucose POC Glucose 113 H 86 Calcium Ionized Calcium Phosphorus Hep B Core IgM Ab 02/05/21 02/05/21 02/05/21 06:31 06:31 07:39 Hgb Hct APTT PTT Ratio Sodium Potassium Chloride Carbon Dioxide Anion Gap BUN Creatinine Est Cr Clr Drug Dosing Est GFR ( Amer) Est GFR (Non-Af Amer) BUN/Creatinine Ratio Glucose POC Glucose 120 H Calcium Ionized Calcium 0.97 L Phosphorus 4.4 Hep B Core IgM Ab 02/05/21 02/05/21 02/05/21 08:37 08:37 09:23 Hgb 9.4 L Hct 28.0 L APTT PTT Ratio Sodium 138 Potassium 3.2 L Chloride 103 Carbon Dioxide 27 Anion Gap 8.0 BUN 66 H Creatinine 4.30 H D Est Cr Clr Drug Dosing 13.9 Est GFR ( Amer) 14.1 Est GFR (Non-Af Amer) 12.1 BUN/Creatinine Ratio 15.3 Glucose 107 H POC Glucose 118 H Calcium 7.7 L Ionized Calcium Phosphorus Hep B Core IgM Ab 02/05/21 12:12 Hgb Hct APTT PTT Ratio Sodium Potassium Chloride Carbon Dioxide Anion Gap BUN Creatinine Est Cr Clr Drug Dosing Est GFR ( Amer) Est GFR (Non-Af Amer) BUN/Creatinine Ratio Glucose POC Glucose 135 H Calcium Ionized Calcium Phosphorus Hep B Core IgM Ab PG Care Time/CCT Total # of Minutes Spent Total Time Spent with Patient: Total time spent is greater than 50% in coordination of care (as documented) at patient's floor/unit and/or counseling patient: Coding Level of Care Code 60020 Subseq Hosp Care Lvl 3 Diagnoses Stage 5 chronic kidney disease not on chronic dialysis N18.5 Bilateral pleural effusion J90 Secondary hyperparathyroidism of renal origin N25.81 Anemia D64.9 Hypertension I10 Hypertension type: unspecified (1) Hypertension Hypertension type: unspecified Qualified Code(s): I10 - Essential (primary) hypertension
--- NOTE | 2021-02-05 12:38 | Anesthesiology Progress Note ---
Date of Service February 05, 2021 Anesthesia Post Procedure Vital Signs Vital Signs: Temp Pulse Pulse Pulse Resp BP BP 02/05/21 12:20 100 H 18 133/80 02/05/21 12:10 95 H 13 132/80 02/05/21 12:00 102 H 12 143/79 H 02/05/21 11:50 100 H 10 L 142/84 H 02/05/21 11:40 36.4 C L 93 H 12 127/81 02/05/21 09:20 36.9 C 91 H 18 02/05/21 09:00 98 H 02/05/21 07:24 36.9 C 81 18 145/73 H 02/05/21 03:59 36.9 C 63 18 157/69 H 02/05/21 00:00 98 H 02/04/21 23:00 36.9 C 73 18 149/83 H 02/04/21 18:40 36.9 C 88 20 154/82 H 02/04/21 16:41 90 02/04/21 15:58 36.5 C 103 H 20 139/80 Pulse Ox 02/05/21 12:20 100 02/05/21 12:10 100 02/05/21 12:00 100 02/05/21 11:50 100 02/05/21 11:40 100 02/05/21 09:20 97 02/05/21 09:00 02/05/21 07:24 96 02/05/21 03:59 97 02/05/21 00:00 02/04/21 23:00 94 02/04/21 18:40 99 02/04/21 16:41 02/04/21 15:58 94 Pain Intensity Head: Pain Intensity: 8 Transfer of Care Handoff Completed per policy Notes Mental Status: alert / awake / arousable and participated in evaluation Patient Amnestic to Procedure: Yes Nausea / Vomiting: adequately controlled Pain: adequately controlled Airway Patency, RR, SpO2: stable & adequate BP & HR: stable & adequate Hydration State: stable & adequate Anesthetic Complications: no major complications apparent and Pt Satisfied with anesthetic care
[2021-02-05] MEDS: TACROLIMUS 1 MG CAP PO SCH ×2 (13:57→20:39)
[2021-02-05] MEDS: CALCITRIOL 0.25 MCG CAPSULE PO SCH (13:57)
[2021-02-05] MEDS: ursodioL 300 MG CAP PO SCH ×2 (13:58→20:38)
[2021-02-05] MEDS: predniSONE 5 MG TAB PO SCH (13:58)
[2021-02-05] MEDS: DUTASTERIDE PO SCH (13:58)
[2021-02-05] MEDS: BUDESONIDE EC 3 MG CAP PO SCH (13:59)
[2021-02-05] MEDS: METOPROLOL SUCC 50MG EXT REL TAB PO SCH ×2 (13:59→20:37)
--- NOTE | 2021-02-05 14:21 | XRay Report ---
XR chest 1V portable CLINICAL HISTORY: s/p TDC placement, f/u eval for ?pneumo COMPARISON STUDY: Chest CT January 28, 2021. Chest radiograph February 05, 2021 at 11:06 AM FINDINGS: A right internal jugular [id number] is in place. Tip projects over the mid SVC. There is no pneumothorax. There are small bilateral pleural effusions. Left basilar opacity persists. Interst itial thickening represent mild pulmonary edema. IMPRESSION: 1. Persistent interstitial thickening consistent with pulmonary edema. 2. Small bilateral pleural effusions with left basilar opacity which could reflect atelectasis or con solidation. ACT 112: Negative or not required by law. Electronically signed by: Andrea Ramirez M.D. 02/05/2021 2:20 PM
[2021-02-05] MEDS: VENLAFAXINE HCL 50 MG TAB PO SCH (18:12)
[2021-02-05] MEDS: MELATONIN 3 MG TAB PO PRN (20:36)
[2021-02-05] MEDS: FLUDROCORTISONE ACETATE 0.1 MG TAB PO SCH (20:37)
[2021-02-05] MEDS: TAMSULOSIN HCL 0.4 MG CAP PO SCH (20:38)
[2021-02-05] MEDS: DONEPEZIL HCL 10 MG TAB PO SCH (20:38)
[2021-02-05] MEDS: Heparin IV Adult Wt-Based Standard *NO* Bolus Protocol IV SCH (21:35)
[2021-02-05] MEDS: HEPARIN SODIUM/DEXTROSE 25,000 UNITS/500 ML BAG IV SCH (23:01)
[2021-02-06 05:58] LABS: Partial Thromboplastin Ratio 2.6
[2021-02-06 06:05] LABS: Partial Thromboplastin Time 69.5 Seconds (21.0-31.0)
[2021-02-06] MEDS: CALCIUM CARBONATE 500 MG CHEWABLE TAB PO SCH ×3 (07:53→16:55)
[2021-02-06] MEDS: INSULIN ASPART 100 UNITS/ML 3 ML PEN SC SCH ×4 (08:07→21:00)
[2021-02-06] MEDS: INSULIN GLARGINE SOLOSTAR 100 UNITS/ML 3 ML PEN SC SCH (08:08)
--- NOTE | 2021-02-06 08:09 | Billing Data ---
Date of Service February 06, 2021 Coding Level of Care Code 67489 Subseq Hosp Care Lvl 3
--- NOTE | 2021-02-06 08:22 | Surgery Progress Note ---
Date of Service February 06, 2021 Assessment & Plan (1) Stage 5 chronic kidney disease not on chronic dialysis: POD#1 placement of tunneled dialysis catheter, Right IJ Patient feeling well Currently saturating well on room air Catheter was used yesterday in HD with no apparent issues Dressing c/d/i We will sign off, please call with any questions/concerns as above. yesterday cath was fx fine.... today dialysis was met with high pressures. tried to manipulate during dialysis without success....pt discomfort prevented much manipulation. d/w Dr. Rider...they will proceed with sub-optimum dialysis over weekend and I will touch base with Nephrology on Tuesday...if cath simply not functioning well enough to get him through until a fistula can be performed by Dr. Otero, I will try and manipulate the cath under fluoro on Tuesday or Tuesday...suspect a slight kink in the catheter is the main issue. Dr. Valle social service liaison for weekend if any acute issues. Admission and Anticipated Discharge Date Admission Date: January 28, 2021 Subjective Patient is feeling well this AM. He went to dialysis yesterday without issues and is going again today. Tolerating a diet. Currently denies pain or any shortness of breath. Physical Exam Physical Exam: awake/alert Constitutional: no acute distress Respiratory: normal respiratory effort (on room air) Skin: R chest dressing c/d/i Results & Data ([facility]) Vital Signs (Past 12 Hours) Vital Signs Temp Pulse Pulse Pulse Resp BP Pulse Ox 02/06/21 03:25 36.7 C 80 18 161/82 H 97 02/06/21 00:00 68 02/05/21 23:00 37 C 71 20 163/84 H 98 PG Care Time/CCT Total # of Minutes Spent Total Time Spent with Patient: Total time spent is greater than 50% in coordination of care (as documented) at patient's floor/unit and/or counseling patient: Coding Level of Care Code None Diagnoses Stage 5 chronic kidney disease not on chronic dialysis N18.5
--- NOTE | 2021-02-06 09:16 | Hospitalist Progress Note ---
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 Stable. Dyspnea, weakness, tremor 2/2 worsening CKD -s/p right jugular tunneled dialysis catheter placement as noted below -received second short course of HD today (02/06) -tremor has completely resolved, dyspnea has significantly improved, weakness persists but is slowly improving -continue bumetanide -continue PT/OT -daily BMP Status post dialysis catheter placement: POD#1 -POD#1, patient tolerated procedure well -some initial concern for pneumothorax, not seen on serial CXR, no signs of pneumothorax today -surgical site well-healing without sign of infection -catheter functional, patient tolerating dialysis well -heparin gtt restarted overnight, but 02/06 afternoon, PTT elevated, repeat PTT elevated; holding heparin gtt per protocol -continue to monitor surgical site Dysphagia -no stroke on MRI -ongoing speech therapy evaluation/treatment; appreciate recommendations -pureed nectar thick diet Pleural effusion, chronic pericardial effusion, suspected pneumonia -echo (01/29): normal LV function, EF 55-60%, pericardial effusion chronic and small -s/p thoracentesis (01/31) removing 1750mL from right lung (transudative) -no signs of infectious process - pneumonia no longer suspected, unasyn discontinued -stable; maintaining adequate oxygenation on room air Hypocalcemia -repleting -continue calcitriol -appreciate ongoing nephrology recommendations Atrial fibrillation -heparin currently held as above -continue metoprolol 100mg PO bid -eventual transition back to eliquis DM -glycemic consult -continue glargine 11u qAM -ISS Liver transplant recipient -continue prograf, prednisone, delgado Memory impairment -remote and recent memory relatively intact on exam -continue donepezil JANES -continue CPAP BPH -continue tamsulosin, dutasteride FENGI: pureed nectar thick diet DVT ppx: heparin Consults: nephrology, palliative care Code status: DNR/DNI (confirmed by palliative 02/02) Dispo: inpatient Admission and Anticipated Discharge Date Admission Date: January 28, 2021 Supervising Physician Co-Signing Physician Notes I personally examined the patient and verified all reeves points of history and exam, discussed case, and agree with decision making with Dr Burrows Feeling a little more tired today Vitals noted, pleasant aao nad heent nc at mmm neck no longer any crepitis around site, nursing notes less than even earlier. breathing unlabored no accessory muscles good effort skin no rashes no pallor or icterus 1. Dysphagia. MRI without acute or subacute stroke. Ongoing speech eval and treat, appreciate recommendations, seems to be doing reasonably well in this regard 2. Hypocalcemia. Repleting. ongoing calcitriol 3. Tremor. Was probably uremicas it has improved 4. Acute dyspnea with new bilateral pleural effusion. Essentially amounting to HFpEF, but predominantly from severely progressed renal disease. started HD, which will help stabilize the situation 5. Pleural effusion. s/p thoracentesis and breathing is stable 6. ?Pneumonia but unable to rule out definitively given concomitant pleural effusions. Continues to appear well after antibiotics have been stopped 7. Afib. Rate controlled. On anticoagulation. 8. CKD. started HD 9. DM. sugars variable, continue glycemic management 10. Hx of liver transplant. Continue home prograf, pred, and ursodiol. Dispo: Anticipate need for rehab or SNF after discharge, but anticipate a fairly prolonged hospital stay given that he is starting HD Subjective Patient seen at bedside this afternoon. He had another short course of HD this morning, and had just finished lunch when I arrived. He is feeling well but notes his dialysis catheter was difficult to access, and while starting it, the surgical site needed to be manipulated, which was very painful. The pain has since subsided. Patient notes his SOB has greatly improved, and his tremor has completely resolved. In a good mood today. Fatigue persists but is improving. Denies chest pain, cough, fever, chills, palpitations, or other symptoms. Review of Systems Review of Systems: See HPI Physical Exam Physical Exam: Well-appearing, frail man laying in bed, comfortable, no acute distress NCAT, MMM CV irregularly irregular rhythm, rate regular Resp- breath sounds clear bilaterally, no increased WOB Chest wall with ecchymosis surrounding dialysis catheter site, minimally tender, no erythema, edema, pus, or exudate appreciated Neuro: alert, oriented x4, no appreciable tremor Psych: euthymic affect, cooperative, pleasant Results & Data Results & Data ([facility]) Vital Signs (Past 12 Hours) Vital Signs Temp Pulse Pulse Pulse Resp BP Pulse Ox 02/06/21 08:29 36.6 C 66 18 172/82 H 98 02/06/21 03:25 36.7 C 80 18 161/82 H 97 02/06/21 00:00 68 02/05/21 23:00 37 C 71 20 163/84 H 98 Resident Activity Tracking Resident Involvement: Resident Care Provided Care Provided: Adult Hospital Medicine
[2021-02-06 09:35] LABS: Hematocrit (blood only) 26.6 % (42-52); Hemoglobin 8.8 g/dL (14.0-18.0); Mean Corpuscular Hemoglobin 29.8 pg (25-34); Mean Corpuscular Hgb Conc 33.1 g/dL (32-36); Mean Corpuscular Volume 90.2 fL (80-100); RDW Coefficient of Variation 15.8 % (11.5-14.5); RDW Standard Deviation 50.1 fL (36.4-46.3); Red Blood Count 2.95 M/uL (4.7-6.1); White Blood Count 3.81 K/uL (4.8-10.8)
[2021-02-06 09:43] LABS: Mean Platelet Volume 10.6 fL (7.4-10.4); Platelet Count 90 K/uL (130-400)
--- NOTE | 2021-02-06 09:51 | Nephrology Progress Note ---
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 HD catheter placed by Dr. Dale 02/05. First HD treatment performed 02/05. Catheter worked well with HD yesterday at low blood flow. Unfortunately, we have not been able to appropriately increase Qb today. High venous and arterial pressures. I have reached out to Dr. Dale to trouble shoot. Unfortunately, if we cannot increase Qb >300 it will be difficult to perform adequate dialysis. Labs pending this AM. Left arm nephrology precaution for future AV fistula placement. Plan is to continue HD at [facility] post discharge once adequate clearance is able to be obtained with HD. Eventually Lawrence plans to return home and continue HD at [facility] under my care. Document I/O's and repeat metabolic profile tomorrow AM. Anticipate HD tomorrow as well. (2) Bilateral pleural effusion: Will attempt additional 1 L UF today with HD. (3) Secondary hyperparathyroidism of renal origin: Calcitriol 1 mcg QAM. Calcium carbonate with meals. (4) Anemia: Chronic, stable. BENNY therapy deferred for Hgb >10. Repeat H/H pending today. Will update iron profile with next labs. (5) Hypertension: BP and volume status acceptable. Remains on stable dose of metoprolol. Admission and Anticipated Discharge Date Admission Date: January 28, 2021 Subjective No acute events overnight. Lawrence was seen and evaluated during HD today. 2 hours HD provided yesterday @ Qb 200 without complications. Lawrence feels well this AM. He slept very well last night. He is breathing comfortably. He denies pain. Unfortunately, high V and A pressures noted with HD today. Unable to increase Qb >200. Lines reversed without improvement. Review of Systems Review of Systems: All systems reviewed & are unremarkable except as noted in HPI & below Physical Exam Constitutional: + thin and + frail appearing Eyes: + anicteric sclerae; no corneal abnormality ENMT: Ears: + hearing impairment Mouth: oral mucous membranes not dry Neck: normal visual inspection and trachea midline Respiratory: normal respiratory effort Auscultation: lungs clear to auscultation bilaterally, + diminished lung sounds and + rales (few on right) Cardiovascular: Rate/Rhythm: regular rate and regular rhythm Heart Sounds: normal S1 and normal S2 Extremities: no edema Gastrointestinal (Abdomen): Percussion/Palpation: abdomen soft; abdomen nontender Musculoskeletal: Extremities: no cyanosis and no clubbing Skin: + turgor decreased and + ecchymosis Neurologic: awake Speech / Cognition: no expressive aphasia Motor/Sensory: + asterixis Psychiatric: Orientation: alert and oriented x 3 Results & Data ([facility]) Vital Signs (Past 12 Hours) Vital Signs Temp Pulse Pulse Pulse Resp BP Pulse Ox 02/06/21 08:29 36.6 C 66 18 172/82 H 98 02/06/21 03:25 36.7 C 80 18 161/82 H 97 02/06/21 00:00 68 02/05/21 23:00 37 C 71 20 163/84 H 98 Laboratory Results Laboratory Results - last 24 hr 01/31/21 02/05/21 02/05/21 Unknown 08:37 12:12 WBC RBC Hgb Hct MCV MCH MCHC RDW Std Deviation RDW Coeff of Penelope Plt Count MPV APTT PTT Ratio Sodium 138 Potassium 3.2 L Chloride 103 Carbon Dioxide 27 Anion Gap 8.0 BUN 66 H Creatinine 4.30 H D Est Cr Clr Drug Dosing 13.9 Est GFR ( Amer) 14.1 Est GFR (Non-Af Amer) 12.1 BUN/Creatinine Ratio 15.3 Glucose 107 H POC Glucose 135 H Calcium 7.7 L Pleural Cholesterol 23 02/05/21 02/05/21 02/06/21 18:09 21:23 05:20 WBC RBC Hgb Hct MCV MCH MCHC RDW Std Deviation RDW Coeff of Penelope Plt Count MPV APTT 69.5 H* PTT Ratio 2.6 Sodium Potassium Chloride Carbon Dioxide Anion Gap BUN Creatinine Est Cr Clr Drug Dosing Est GFR ( Amer) Est GFR (Non-Af Amer) BUN/Creatinine Ratio Glucose POC Glucose 122 H 194 H Calcium Pleural Cholesterol 02/06/21 02/06/21 02/06/21 07:48 09:24 09:24 WBC 3.81 L RBC 2.95 L Hgb 8.8 L Hct 26.6 L MCV 90.2 MCH 29.8 MCHC 33.1 RDW Std Deviation 50.1 H RDW Coeff of Penelope 15.8 H Plt Count 90 L MPV 10.6 H APTT PTT Ratio Sodium Pending Potassium Pending Chloride Pending Carbon Dioxide Pending Anion Gap Pending BUN Pending Creatinine Pending Est Cr Clr Drug Dosing Pending Est GFR ( Amer) Pending Est GFR (Non-Af Amer) Pending BUN/Creatinine Ratio Pending Glucose Pending POC Glucose 147 H Calcium Pending Pleural Cholesterol PG Care Time/CCT Total # of Minutes Spent Total Time Spent with Patient: Total time spent is greater than 50% in coordination of care (as documented) at patient's floor/unit and/or counseling patient: Coding Level of Care Code 29857 Subseq Hosp Care Lvl 3 Diagnoses Stage 5 chronic kidney disease not on chronic dialysis N18.5 Bilateral pleural effusion J90 Secondary hyperparathyroidism of renal origin N25.81 Anemia D64.9 Hypertension I10 Hypertension type: unspecified (1) Hypertension Hypertension type: unspecified Qualified Code(s): I10 - Essential (primary) hypertension
[2021-02-06 09:57] LABS: BUN Creatinine Ratio 13.1 (10-20); Creatinine Clr Calc Pharmacy 13.6 ml/min; Est GFR (African American) 14.4; Est GFR (Non-African American) 12.4; Potassium 3.5 mmol/L (3.5-5.1)
--- NOTE | 2021-02-06 10:06 | Pharmacy Report ---
Pharmacy Glycemic Short Note 2 - Date of Service February 06, 2021 - Glycemic Short BSG Results (Last 24 hours): 02/05/21 02/05/21 02/05/21 08:37 12:12 18:09 Glucose 107 H POC Glucose 135 H 122 H 02/05/21 02/06/21 02/06/21 21:23 07:48 09:24 Glucose 218 H POC Glucose 194 H 147 H OUTPATIENT ANTIDIABETIC REGIMEN: * Tresiba 11 units SC AM * Novolog 7-9 units SC breakfast, 5-7 units SC lunch, 3-4 units dinner * HbA1c = 7.6% (01/29/21) ASSESSMENT: 02/06 * Pt has received 18 units of insulin over the past 24hrs * 8 units of basal with Lantus * 10 units of bolus with NovoLog * BSGs [phone] mg/dl * Diet resumed after tunnel cath placement yesterday. Tolerated PO adequately CHO counts. Will increase basal back to baseline dosing of 11 units SQ Daily in AM. Dose reduced yesterday for NPO status. * Pt remains on prednisone 5mg PO daily (outpatient dosing) and IV heparin infusion (mixed in dextrose). * HD yesterday and scheduled again for today. * No changes needed today. 02/05 * Pt has received 29 units of insulin over the past 24hrs * 11 units of basal with Lantus * 18 units of bolus with NovoLog * BSGs [phone] mg/dl * Pt NPO today for tunnel cath placement. Will decrease Lantus ~25% for NPO 02/04 * Patient received 35 units of insulin yesterday, of which 11 units were basal * Fasting BSG trending down, 167 mg/dL - patient NPO tomorrow AM for dialysis cath placement / plan to reduce AM Lantus * Lunch BSGs trending upward, may consider tightening CR in AM at breakfast at account for this PLAN FOR INPATIENT GLYCEMIC CONTROL: * Basal insulin * Resume Lantus 11 units SQ AM * Bolus insulin - no change * NovoLog per scale ACHS or Q6hrs while NPO * Goal Range: Low 110 mg/dL - High 140 mg/dL * Correction Factor: 20 mg/dL/unit * Nutritional / Prandial insulin per carb ratio of 1 unit per 7 grams CHO consumed PLAN FOR DISCHARGE: * HbA1c is 7.6% from this admission which has increased from 7.1% in August 2020. This is still below his goal HbA1c of 8%. * However, this result is likely somewhat unreliable in ESRD patients d/t interactions between the A1c analyzing technique and high levels of urea in ESRD, reduced RBC life span, iron deficiency anemia, and EPO administration. HbA1c > 7.5% in ESRD patient may overestimate the extent of hyperglycemia in ESRD patients. * Continue with outpatient regimen as long as patient is not experiencing any hypoglycemia at home. Report any persistent highs/lows to outpatient provider.
--- NOTE | 2021-02-06 10:30 | Anesthesiology Progress Note ---
Date of Service February 06, 2021 Anesthesia Post Procedure Vital Signs Vital Signs: Temp Pulse Pulse Pulse Pulse Pulse Resp 02/06/21 10:20 61 02/06/21 10:00 62 02/06/21 09:40 56 L 02/06/21 09:12 36.5 C 66 02/06/21 08:29 36.6 C 66 18 02/06/21 07:55 60 02/06/21 03:25 36.7 C 80 18 02/06/21 00:00 68 02/05/21 23:00 37 C 71 20 02/05/21 20:00 72 02/05/21 19:31 36.4 C L 103 H 21 02/05/21 18:32 36.8 C 80 02/05/21 17:40 70 02/05/21 17:20 77 02/05/21 17:05 77 02/05/21 16:40 78 02/05/21 16:37 91 H 02/05/21 16:20 80 02/05/21 16:00 36.5 C 85 75 18 02/05/21 15:44 84 02/05/21 15:38 36.5 C 93 H 02/05/21 14:00 36.6 C 104 H 16 02/05/21 13:40 38.8 C H 85 20 02/05/21 13:01 36.8 C 104 H 16 02/05/21 12:40 37.1 C 96 H 20 02/05/21 12:20 100 H 18 02/05/21 12:10 95 H 13 02/05/21 12:00 102 H 12 02/05/21 11:50 100 H 10 L 02/05/21 11:40 36.4 C L 93 H 12 BP BP BP BP Pulse Ox 02/06/21 10:20 151/78 H 02/06/21 10:00 123/73 02/06/21 09:40 125/82 02/06/21 09:12 02/06/21 08:29 172/82 H 98 02/06/21 07:55 02/06/21 03:25 161/82 H 97 02/06/21 00:00 02/05/21 23:00 163/84 H 98 02/05/21 20:00 02/05/21 19:31 146/84 H 96 02/05/21 18:32 143/78 H 02/05/21 17:40 138/75 02/05/21 17:20 133/70 02/05/21 17:05 143/77 H 02/05/21 16:40 130/66 02/05/21 16:37 02/05/21 16:20 132/80 02/05/21 16:00 140/86 134/69 95 02/05/21 15:44 130/82 02/05/21 15:38 02/05/21 14:00 135/77 135/77 98 02/05/21 13:40 125/71 99 02/05/21 13:01 147/86 H 100 02/05/21 12:40 119/66 96 02/05/21 12:20 133/80 100 02/05/21 12:10 132/80 100 02/05/21 12:00 143/79 H 100 02/05/21 11:50 142/84 H 100 02/05/21 11:40 127/81 100 Pain Intensity Head: Pain Intensity: 8 Notes Mental Status: alert / awake / arousable and participated in evaluation Patient Amnestic to Procedure: Yes Nausea / Vomiting: adequately controlled Pain: adequately controlled Airway Patency, RR, SpO2: stable & adequate BP & HR: stable & adequate Hydration State: stable & adequate Anesthetic Complications: no major complications apparent and Pt Satisfied with anesthetic care
[2021-02-06] MEDS: ursodioL 300 MG CAP PO SCH ×2 (13:16→20:57)
[2021-02-06] MEDS: BUDESONIDE EC 3 MG CAP PO SCH (13:17)
[2021-02-06] MEDS: predniSONE 5 MG TAB PO SCH (13:17)
[2021-02-06] MEDS: CALCITRIOL 0.25 MCG CAPSULE PO SCH (13:18)
[2021-02-06] MEDS: TACROLIMUS 1 MG CAP PO SCH ×2 (13:18→20:56)
[2021-02-06] MEDS: METOPROLOL SUCC 50MG EXT REL TAB PO SCH ×2 (13:18→20:57)
[2021-02-06] MEDS: DUTASTERIDE PO SCH (13:21)
[2021-02-06 13:32] LABS: Partial Thromboplastin Ratio > 5.3
[2021-02-06 13:38] LABS: Partial Thromboplastin Time > 139.0 Seconds (21.0-31.0)
[2021-02-06 15:48] LABS: Partial Thromboplastin Ratio 2.2
[2021-02-06 16:55] LABS: Partial Thromboplastin Time 56.9 Seconds (21.0-31.0)
[2021-02-06] MEDS: VENLAFAXINE HCL 50 MG TAB PO SCH (16:58)
--- NOTE | 2021-02-06 19:40 | Billing Data ---
Date of Service February 06, 2021 Coding Level of Care Code 89358 Subseq Hosp Care Lvl 2
[2021-02-06] MEDS: HEPARIN SODIUM/DEXTROSE 25,000 UNITS/500 ML BAG IV SCH (20:55)
[2021-02-06] MEDS: FLUDROCORTISONE ACETATE 0.1 MG TAB PO SCH (20:56)
[2021-02-06] MEDS: TAMSULOSIN HCL 0.4 MG CAP PO SCH (20:56)
[2021-02-06] MEDS: DONEPEZIL HCL 10 MG TAB PO SCH (20:57)
[2021-02-06] MEDS: MELATONIN 3 MG TAB PO PRN (23:43)
[2021-02-07 00:01] LABS: Partial Thromboplastin Ratio 2.1
[2021-02-07 00:05] LABS: Partial Thromboplastin Time 56.5 Seconds (21.0-31.0)
[2021-02-07] MEDS ORDERED: EPOETIN ALFA 40,000 UNITS/ML VIAL IV ONE (07:00)
[2021-02-07] MEDS ORDERED: IRON SUCROSE 100 MG in SYRINGE 0 ML IV ONE (07:00)
--- NOTE | 2021-02-07 07:59 | Hospitalist Progress Note ---
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 Stable. Dyspnea, weakness, tremor 2/2 worsening CKD -s/p right jugular tunneled dialysis catheter placement as noted below -Nephrology cx'd following recs -received second short course of HD on 02/06, tolerated well, some issues with elevated pressures and increased flow. -For another course today, if continued issues with tunneled catheter will consider reintervention on Tuesday -Epogen and iron with dialysis today -Tremor has completely resolved, dyspnea has significantly improved, weakness persists but is slowly improving -continue bumetanide -continue PT/OT -daily BMP Status post dialysis catheter placement: POD#1 -POD#1, patient tolerated procedure well -some initial concern for pneumothorax, not seen on serial CXR, no signs of pneumothorax -surgical site well-healing without sign of infection, clean dry and intact. -routine post op care -catheter functional, patient tolerating dialysis well -Continue heparin Gtt per protocol Dysphagia -no stroke on MRI -ongoing speech therapy evaluation/treatment; appreciate recommendations -pureed nectar thick diet Pleural effusion, chronic pericardial effusion, suspected pneumonia -echo (01/29): normal LV function, EF 55-60%, pericardial effusion chronic and small -s/p thoracentesis (01/31) removing 1750mL from right lung (transudative) -no signs of infectious process - pneumonia no longer suspected, unasyn di scontinued -stable; maintaining adequate oxygenation on room air Hypocalcemia -repleting -continue calcitriol -appreciate ongoing nephrology recommendations Atrial fibrillation -heparin ggt per protocol as above -continue metoprolol 100mg PO bid -Eventual transition back to eliquis DM -glycemic consult placed -continue glargine 11u qAM -ISS Liver transplant recipient -continue prograf, prednisone, delgado Memory impairment -remote and recent memory relatively intact on exam -continue donepezil JANES -continue CPAP BPH -continue tamsulosin, dutasteride FENGI: pureed nectar thick diet DVT ppx: heparin Consults: nephrology, palliative care Code status: DNR/DNI (confirmed by palliative 02/02) Dispo: inpatient Admission and Anticipated Discharge Date Admission Date: January 28, 2021 Supervising Physician Co-Signing Physician Notes I personally examined the patient and verified all reeves points of history and exam, discussed case, and agree with decision making with Dr Brown Getting dialysis, Main complaint is feeling like he has to lay still for 3 hours. Dialysis nurse notes that there is some difficulty with his tunneled dialysis catheter, so he is having to lay very still, far more than for normal dialysis treatment. Vitals noted, pleasant aao nad heent nc at mmm neck no longer any crepitis around site, breathing unlabored no accessory muscle use good effort. Skin shows no rashes no pallor or icterus. Neuro his tremors are no longer present. HFpEF/ESRDgetting initial treatments of hemodialysis. Seems to be going well as far as his physical conditionhe is tolerating well, and his tremors have gone (suggesting they were uremic). Continue initial run of dialysis for now, once nephrology feels comfortable with transitioning to outpatient, we can start to work on rehab type settings. The added difficulty is that his tunneled dialysis catheter seems to not be functioning very wellanticipate surgical evaluation of this in the near future. Prior assessment and plan for completeness/so that prior diagnoses that have been relevant/are being treated "in the background" are not overlooked in the future: 1. Dysphagia. MRI without acute or subacute stroke. Ongoing speech eval and treat, appreciate recommendations, seems to be doing reasonably well in this regard 2. Hypocalcemia. Repleting. ongoing calcitriol 3. Tremor. Was probably uremicas it has improved 4. Acute dyspnea with new bilateral pleural effusion. Essentially amounting to HFpEF, but predominantly from severely progressed renal disease. started HD, which will help stabilize the situation 5. Pleural effusion. s/p thoracentesis and breathing is stable 6. ?Pneumonia but unable to rule out definitively given concomitant pleural effusions. Continues to appear well after antibiotics have been stopped 7. Afib. Rate controlled. On anticoagulation. 8. CKD. started HD 9. DM. sugars variable, continue glycemic management 10. Hx of liver transplant. Continue home prograf, pred, and ursodiol. Dispo: Anticipate need for rehab or SNF after discharge, but anticipate a fairly prolonged hospital stay given that he is starting HD Subjective Patient lying in bed receiving hemodialysis in no acute distress. Patient reports no acute events overnight, reports tolerating hemodialysis well, reports tolerating his diet, voiding and stooling appropriately. Acute concerns relate to functioning of the catheter all questions answered Physical Exam Physical Exam: See attending's attestation Results & Data Results & Data ([facility]) Vital Signs (Past 12 Hours) Vital Signs Temp Pulse Pulse Resp BP BP Pulse Ox 02/07/21 07:31 66 02/07/21 03:35 36.6 C 62 18 153/76 H 99 02/06/21 23:21 36.6 C 66 18 151/74 H 97 Laboratory Results 02/07/21 02/07/21 02/07/21 Range/Units 08:45 08:45 08:45 Hgb 9.4 L (14.0-18.0) g/dL Hct 28.4 L (42-52) % APTT 74.6 H* (21.0-31.0) Seconds PTT Ratio 2.8 Sodium 135 L (136-145) mmol/L Potassium 3.7 (3.5-5.1) mmol/L Chloride 104 (98-107) mmol/L Carbon Dioxide 25 (21-32) mmol/L Anion Gap 6.0 (3-11) BUN 48 H (7-18) mg/dl Creatinine 3.95 H (0.6-1.4) mg/dl Est Cr Clr Drug Dosing 14.4 ml/min Est GFR ( Amer) 15.6 Est GFR (Non-Af Amer) 13.4 BUN/Creatinine Ratio 12.1 (10-20) Glucose 211 H (70-99) mg/dl POC Glucose (70-99) mg/dl Calcium 8.0 L (8.5-10.1) mg/dl Phosphorus 3.2 (2.5-4.9) mg/dl Iron 38 (35-175) mcg/dl Transferrin 206 (200-360) mg/dl Transferrin % Sat 13 L (20-50) % Ferritin 59.8 (8-388) ng/ml Albumin 2.9 L (3.4-5.0) gm/dl 02/07/21 02/06/21 02/06/21 Range/Units 07:25 23:17 20:14 Hgb (14.0-18.0) g/dL Hct (42-52) % APTT 56.5 H* (21.0-31.0) Seconds PTT Ratio 2.1 Sodium (136-145) mmol/L Potassium (3.5-5.1) mmol/L Chloride (98-107) mmol/L Carbon Dioxide (21-32) mmol/L Anion Gap (3-11) BUN (7-18) mg/dl Creatinine (0.6-1.4) mg/dl Est Cr Clr Drug Dosing ml/min Est GFR ( Amer) Est GFR (Non-Af Amer) BUN/Creatinine Ratio (10-20) Glucose (70-99) mg/dl POC Glucose 151 H 152 H (70-99) mg/dl Calcium (8.5-10.1) mg/dl Phosphorus (2.5-4.9) mg/dl Iron (35-175) mcg/dl Transferrin (200-360) mg/dl Transferrin % Sat (20-50) % Ferritin (8-388) ng/ml Albumin (3.4-5.0) gm/dl 02/06/21 02/06/21 02/06/21 Range/Units 16:46 15:14 12:59 Hgb (14.0-18.0) g/dL Hct (42-52) % APTT 56.9 H* > 139.0 H* (21.0-31.0) Seconds PTT Ratio 2.2 > 5.3 Sodium (136-145) mmol/L Potassium (3.5-5.1) mmol/L Chloride (98-107) mmol/L Carbon Dioxide (21-32) mmol/L Anion Gap (3-11) BUN (7-18) mg/dl Creatinine (0.6-1.4) mg/dl Est Cr Clr Drug Dosing ml/min Est GFR ( Amer) Est GFR (Non-Af Amer) BUN/Creatinine Ratio (10-20) Glucose (70-99) mg/dl POC Glucose 153 H (70-99) mg/dl Calcium (8.5-10.1) mg/dl Phosphorus (2.5-4.9) mg/dl Iron (35-175) mcg/dl Transferrin (200-360) mg/dl Transferrin % Sat (20-50) % Ferritin (8-388) ng/ml Albumin (3.4-5.0) gm/dl Medications Administered Current Inpatient Medications Amitriptyline HCl (Amitriptyline Hcl 10 Mg Tab) 10 mg PO HS MIRIAM Stop: 02/27/21 22:52 Last Admin: 01/30/21 20:47 Dose: 10 mg Documented by: Budesonide (Budesonide Ec 3 Mg Cap) 9 mg PO DAILY MIRIAM Stop: 02/28/21 08:59 Last Admin: 02/07/21 08:06 Dose: 9 mg Documented by: Bumetanide (Bumetanide 1 Mg Tab) 2 mg PO BID MIRIAM Stop: 03/01/21 08:59 Last Admin: 01/31/21 09:00 Dose: Not Given Documented by: Calcitriol (Calcitriol 0.25 Mcg Capsule) 1 mcg PO QAM MIRIAM Stop: 03/03/21 08:59 Last Admin: 02/07/21 08:07 Dose: 1 mcg Documented by: Calcium Carbonate (Calcium Carbonate 500 Mg Chewable Tab) 1,000 mg PO AC MIRIAM Stop: 03/06/21 11:29 Last Admin: 02/07/21 08:06 Dose: 1,000 mg Documented by: Dextrose (Dextrose 50% 50 Ml Syringe) 25 - 50 ml IV UD PRN; Protocol PRN Reason: Hypoglycemia Protocol Stop: 02/28/21 00:14 Donepezil HCl (Donepezil Hcl 10 Mg Tab) 10 mg PO HS [facility] Stop: 02/27/21 22:52 Last Admin: 02/06/21 20:57 Dose: 10 mg Documented by: Dutasteride (Dutasteride) 1 ea PO DAILY@1200 [facility] Stop: 03/01/21 11:59 Last Admin: 02/06/21 13:21 Dose: 1 ea Documented by: Fludrocortisone Acetate (Fludrocortisone Acetate 0.1 Mg Tab) 0.1 mg PO QPM MIRIAM Stop: 02/27/21 22:52 Last Admin: 02/06/21 20:56 Dose: 0.1 mg Documented by: Glucagon (Glucagon For Inj 1 Mg Vial) 1 mg IM UD PRN; Protocol PRN Reason: Hypoglycemia Protocol Stop: 02/28/21 00:14 Glucose (Glucose 40% Gel 15 Gm Tube) 15 - 30 gm PO UD PRN; Protocol PRN Reason: Hypoglycemia Protocol Stop: 02/28/21 00:14 Glucose (Glucose 10 Tabs/Tube) 4 - 8 tabs PO UD PRN; Protocol PRN Reason: Hypoglycemia Protocol Stop: 02/28/21 00:14 Heparin Sodium/Dextrose (Heparin Sodium/Dextrose) 25,000 units in 500 mls @ 23 mls/hr IV .[id number] [facility]; Protocol Stop: 03/07/21 20:59 Last Titration: 02/07/21 09:42 Dose: 1,150 units/hr, 23 mls/hr Documented by: Iron Sucrose 200 mg/ Sodium (Chloride) 110 mls @ 220 mls/hr IV DAILY [facility] Stop: 02/12/21 09:29 Insulin Aspart (Insulin Aspart 100 Units/Ml 3 Ml Pen) 0 units SC ACHS [facility] Stop: 03/04/21 07:29 Last Admin: 02/07/21 08:04 Dose: 3 units Documented by: Insulin Glargine (Insulin Glargine Solostar 100 Units/Ml 3 Ml Pen) 11 units SC QAM [facility] Stop: 03/08/21 08:59 Last Admin: 02/07/21 08:07 Dose: 11 units Documented by: Lidocaine (Lidocaine 5% 1 Patch) 1 patch TD DAILY PRN PRN Reason: Pain Stop: 02/27/21 22:52 Last Admin: 01/29/21 13:38 Dose: 1 patch Documented by: Meclizine HCl (Meclizine Hcl 25 Mg Tab) 25 mg PO DAILY PRN PRN Reason: Vertigo Stop: 02/27/21 22:52 Melatonin (Melatonin 3 Mg Tab) 3 - 6 mg PO HS PRN PRN Reason: Sleep Stop: 03/06/21 18:56 Last Admin: 02/06/21 23:43 Dose: 6 mg Documented by: Metoprolol Succinate (Metoprolol Succ 50mg Ext Rel Tab) 100 mg PO BID [facility] Stop: 02/27/21 22:52 Last Admin: 02/07/21 08:08 Dose: 100 mg Documented by: Miscellaneous (Remove Lidoderm Patch) 1 ea N/A DAILY@2100 PRN PRN Reason: IF PATCH APPLIED Stop: 02/27/21 22:52 Miscellaneous (Carbohydrates For Hypoglycemia ) 15 - 30 gm PO UD PRN PRN Reason: Hypoglycemia Treatment Stop: 02/28/21 00:14 Miscellaneous Information (Pharmacy Glycemic Mgmt Consult) 1 ea N/A UD PRN PRN Reason: Consult Stop: 02/27/21 23:07 Morphine Sulfate (Morphine Sulfate 2 Mg/Ml Carp) 2 mg IV Q6H PRN PRN Reason: Pain Stop: 02/21/21 08:25 Last Admin: 02/07/21 08:43 Dose: 2 mg Documented by: Ondansetron HCl (Ondansetron Inj 2 Mg/Ml 2 Ml Vial) 4 mg IV Q6H PRN PRN Reason: Nausea Stop: 03/02/21 08:29 Last Admin: 02/07/21 08:42 Dose: 4 mg Documented by: Polyethylene Glycol (Polyethylene (Miralax) 17 Gm Pack) 17 gm PO DAILY PRN PRN Reason: Constipation Stop: 02/27/21 22:52 Prednisone (Prednisone 5 Mg Tab) 5 mg PO QAM MIRIAM Stop: 02/28/21 08:59 Last Admin: 02/07/21 08:07 Dose: 5 mg Documented by: Tacrolimus (Tacrolimus 1 Mg Cap) 2 mg PO BID MIRIAM Stop: 02/27/21 22:52 Last Admin: 02/07/21 08:07 Dose: 2 mg Documented by: Tamsulosin HCl (Tamsulosin Hcl 0.4 Mg Cap) 0.4 mg PO QPM MIRIAM Stop: 02/27/21 22:52 Last Admin: 02/06/21 20:56 Dose: 0.4 mg Documented by: Ursodiol (Ursodiol 300 Mg Cap) 300 mg PO BID MIRIAM Stop: 02/27/21 22:52 Last Admin: 02/07/21 08:06 Dose: 300 mg Documented by: Venlafaxine HCl (Venlafaxine Hcl 50 Mg Tab) 25 mg PO DAILY@1700 [facility] Stop: 03/04/21 16:59 Last Admin: 02/06/21 16:58 Dose: 25 mg Documented by: Resident Activity Tracking Resident Involvement: Resident Care Provided Care Provided: Adult Hospital Medicine
[2021-02-07] MEDS: INSULIN ASPART 100 UNITS/ML 3 ML PEN SC SCH ×4 (08:04→21:06)
[2021-02-07] MEDS: ursodioL 300 MG CAP PO SCH ×2 (08:06→20:32)
[2021-02-07] MEDS: CALCIUM CARBONATE 500 MG CHEWABLE TAB PO SCH ×3 (08:06→17:15)
[2021-02-07] MEDS: BUDESONIDE EC 3 MG CAP PO SCH (08:06)
[2021-02-07] MEDS: INSULIN GLARGINE SOLOSTAR 100 UNITS/ML 3 ML PEN SC SCH (08:07)
[2021-02-07] MEDS: CALCITRIOL 0.25 MCG CAPSULE PO SCH (08:07)
[2021-02-07] MEDS: predniSONE 5 MG TAB PO SCH (08:07)
[2021-02-07] MEDS: TACROLIMUS 1 MG CAP PO SCH ×2 (08:07→21:05)
[2021-02-07] MEDS: METOPROLOL SUCC 50MG EXT REL TAB PO SCH ×2 (08:08→21:05)
[2021-02-07] MEDS: ONDANSETRON INJ 2 MG/ML 2 ML VIAL IV PRN ×3 (08:42→22:07)
[2021-02-07] MEDS: MoRPHine SULFATE 2 MG/ML CARP IV PRN ×3 (08:43→22:07)
--- NOTE | 2021-02-07 08:57 | Nephrology Progress Note ---
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 Dale 02/05 with first HD treatment performed 02/05 * Will plan HD today and monitor IJ THC function * Left arm nephrology precaution for future AV fistula placement (2) Bilateral pleural effusion: * Will attempt additional 1 L UF today with HD (3) Secondary hyperparathyroidism of renal origin: * Calcitriol 1 mcg QAM * Calcium carbonate with meals (4) Anemia: * Iron deficient (iron sat 13% , ferritin 59). Will provide 1 g IV Venofer * Patient given Epogen 40,000 units SQ this morning (5) Hypertension: * BP is acceptable * Continue metoprolol Admission and Anticipated Discharge Date Admission Date: January 28, 2021 Subjective Mr. Herrera was seen & examined in his hospital room this morning. He was breathing comfortably flat in bed on RA. He voiced no new medical concerns. Review of Systems Constitutional: no fever Eyes: no problem reported Ear, Nose, Mouth, Throat: no problem reported Respiratory: no dyspnea Cardiovascular: no chest pain Gastrointestinal: no abdominal pain, no vomiting and no diarrhea/loose stools Physical Exam Constitutional: + thin and + frail appearing Eyes: PERRL, conjunctivae normal, anicteric sclerae ENMT: external ear and nose normal, oropharynx normal Neck: trachea midline, no thyromegaly (R IJ THC in place with clean, dry dressing ) Respiratory: normal respiratory effort, lungs clear to auscultation Cardiovascular: RRR, no murmur, no edema Gastrointestinal (Abdomen): normal bowel sounds, soft, nontender, no hepatosplenomegaly Musculoskeletal: Extremities: no cyanosis Neurologic: awake; not confused Results & Data ([facility]) Vital Signs (Past 12 Hours) Vital Signs Temp Pulse Pulse Resp BP BP Pulse Ox 02/07/21 07:52 36.6 C 71 18 183/80 H 94 02/07/21 07:31 66 02/07/21 03:35 36.6 C 62 18 153/76 H 99 02/06/21 23:21 36.6 C 66 18 151/74 H 97 Laboratory Tests 02/06/21 09:24 WBC 3.81 L Hgb 8.8 L Hct 26.6 L Plt Count 90 L Laboratory Tests 02/07/21 08:45 Sodium 135 L Potassium 3.7 Chloride 104 Carbon Dioxide 25 BUN 48 H Creatinine 3.95 H Glucose 211 H Calcium 8.0 L Transferrin % Sat 13 L Ferritin 59.8 Albumin 2.9 L PG Care Time/CCT Total # of Minutes Spent Total Time Spent with Patient: Total time spent is greater than 50% in coordination of care (as documented) at patient's floor/unit and/or counseling patient: Coding Level of Care Code 79786 Subseq Hosp Care Lvl 3 Diagnoses ESRD (end stage renal disease) on dialysis N18.6; Z99.2 Bilateral pleural effusion J90 Secondary hyperparathyroidism of renal origin N25.81 Anemia D64.9 Hypertension I10 Hypertension type: unspecified (1) Hypertension Hypertension type: unspecified Qualified Code(s): I10 - Essential (primary) hypertension
[2021-02-07 09:00] LABS: Hematocrit (blood only) 28.4 % (42-52); Hemoglobin 9.4 g/dL (14.0-18.0)
[2021-02-07 09:16] LABS: Albumin Level 2.9 gm/dl (3.4-5.0); BUN Creatinine Ratio 12.1 (10-20); Creatinine Clr Calc Pharmacy 14.4 ml/min; Est GFR (African American) 15.6; Est GFR (Non-African American) 13.4; Potassium 3.7 mmol/L (3.5-5.1)
[2021-02-07 09:25] LABS: Partial Thromboplastin Ratio 2.8
[2021-02-07 09:26] LABS: Ferritin 59.8 ng/ml (8-388); Phosphorus 3.2 mg/dl (2.5-4.9)
[2021-02-07 09:39] LABS: Partial Thromboplastin Time 74.6 Seconds (21.0-31.0)
[2021-02-07] MEDS: DUTASTERIDE PO SCH (13:46)
[2021-02-07] MEDS: HEPARIN SODIUM/DEXTROSE 25,000 UNITS/500 ML BAG IV SCH ×3 (15:00→16:36)
--- NOTE | 2021-02-07 15:53 | Billing Data ---
Date of Service February 07, 2021 Coding Level of Care Code 40980 Subseq Hosp Care Lvl 2
[2021-02-07 16:28] LABS: Partial Thromboplastin Ratio 3.2
[2021-02-07 16:30] LABS: Partial Thromboplastin Time 83.9 Seconds (21.0-31.0)
[2021-02-07] MEDS: VENLAFAXINE HCL 50 MG TAB PO SCH (17:50)
[2021-02-07] MEDS: FLUDROCORTISONE ACETATE 0.1 MG TAB PO SCH (21:05)
[2021-02-07] MEDS: DONEPEZIL HCL 10 MG TAB PO SCH (21:05)
[2021-02-07] MEDS: TAMSULOSIN HCL 0.4 MG CAP PO SCH (21:06)
[2021-02-07 23:09] LABS: Partial Thromboplastin Ratio 2.8
[2021-02-07 23:12] LABS: Partial Thromboplastin Time 72.5 Seconds (21.0-31.0)
[2021-02-08 05:53] LABS: Basophils # (auto) 0.01 K/uL (0-0.2); Basophils % (auto) 0.2 %; Eosinophils % (auto) 1.8 %; Hematocrit (blood only) 30.5 % (42-52); Hemoglobin 9.9 g/dL (14.0-18.0); Immature Granulocytes # (auto) 0.03 K/uL (0.00-0.02); Immature Granulocytes % (auto) 0.5 %; Lymphocytes # (auto) 1.64 K/uL (1.2-3.4); Lymphocytes % (auto) 29.6 %; Mean Corpuscular Hemoglobin 29.6 pg (25-34); Mean Corpuscular Hgb Conc 32.5 g/dL (32-36); Mean Corpuscular Volume 91.3 fL (80-100); Mean Platelet Volume 10.6 fL (7.4-10.4); Neutrophils # (auto) 3.26 K/uL (1.4-6.5); Neutrophils % (auto) 58.9 %; Platelet Count 116 K/uL (130-400); RDW Coefficient of Variation 16.3 % (11.5-14.5); RDW Standard Deviation 53.5 fL (36.4-46.3); Red Blood Count 3.34 M/uL (4.7-6.1); White Blood Count 5.54 K/uL (4.8-10.8)
[2021-02-08 06:15] LABS: Partial Thromboplastin Ratio 2.4
[2021-02-08 06:44] LABS: Partial Thromboplastin Time 63.2 Seconds (21.0-31.0)
[2021-02-08] MEDS: CALCIUM CARBONATE 500 MG CHEWABLE TAB PO SCH ×3 (07:55→16:27)
--- NOTE | 2021-02-08 07:57 | Hospitalist Progress Note ---
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 Stable. Dyspnea, weakness, tremor 2/2 worsening CKD -s/p right jugular tunneled dialysis catheter placement as noted below -Nephrology cx'd following recs -Received first dose of hemodialysis on 02/05, as received subsequent treatment on 02/06 and 02/07. Plan for short course of HD on Tuesday via IGT HD catheter -Calcitriol 1 mcg every morning, calcium carbonate with meals -Continue iron repletion, 1 g of IV the nonsevere day 2 of 5 -continue bumetanide -continue PT/OT -daily BMP Status post dialysis catheter placement: POD#2 - patient tolerated procedure well -some initial concern for pneumothorax, not seen on serial CXR, no signs of pneumothorax -surgical site well-healing without sign of infection, clean dry and intact. -routine post op care -catheter functional, patient tolerating dialysis well -Continue heparin Gtt per protocol Dysphagia -no stroke on MRI -ongoing speech therapy evaluation/treatment; appreciate recommendations -pureed nectar thick diet Pleural effusion, chronic pericardial effusion, suspected pneumonia -echo (01/29): normal LV function, EF 55-60%, pericardial effusion chronic and small -s/p thoracentesis (01/31) removing 1750mL from right lung (transudative) -no signs of infectious process - pneumonia no longer suspected, unasyn discontinued -stable; maintaining adequate oxygenation on room air Hypocalcemia -repleting -continue calcitriol -appreciate ongoing nephrology recommendations Atrial fibrillation -heparin ggt per protocol as above -continue metoprolol 100mg PO bid -Eventual transition back to eliquis DM -glycemic consult placed -continue glargine 11u qAM -ISS Liver transplant recipient -continue prograf, prednisone, delgado Memory impairment -remote and recent memory relatively intact on exam -continue donepezil JANES -continue CPAP BPH -continue tamsulosin, dutasteride FENGI: pureed nectar thick diet DVT ppx: heparin Consults: nephrology, palliative care Code status: DNR/DNI (confirmed by palliative 02/02) Dispo: inpatient Admission and Anticipated Discharge Date Admission Date: January 28, 2021 Supervising Physician Co-Signing Physician Notes I supervised the care of this patient with Partha Brown MD. I evaluated the patient independently of him. We discussed the patient's care, and it is as noted in his note: Mr. Herrera is an 80-year-old gentleman with a complicated medical history including PSC, OLT, ESRD. Presently we are working on smoothing out his hemodialysis sessions. His present tunneled line catheter has a sharp turn near the right IVC and ends superior to the RA. As such his dialysis flow rate is quite limited. The plan is to have this adjusted as early as tomorrow with general surgery. When vascular surgery has returned, he will likely need removal of his tunneled line and replacement of another. Subjective Patient lying in bed this morning doing well, reporting that he is bored. Patient is eager for discharge. Patient tolerated dialysis yesterday, however catheter is not placed correctly, needs to be adjusted on Tuesday. Otherwise patient is doing well, voiding, stooling, tolerating his diet, in no acute distress. All questions were answered, acute concerns relate to discharge planning. Physical Exam Physical Exam: General: Lying in bed in no acute distress HEENT: Normocephalic atraumatic Neck: Normal to visual inspection Cardiac: Regular rate and rhythm I did not appreciate murmurs rubs or gallops, normal S1, normal S2 Respiratory: Clear to auscultation bilaterally with symmetrical chest expansion occasional scattered wheezes through the bilateral lower lung stoddard Skin: Right arm bruising Neuro: Alert and oriented x4 Psych: Calm and cooperative with the interview Results & Data Results & Data ([facility]) Vital Signs (Past 12 Hours) Vital Signs Temp Pulse Pulse Resp BP BP Pulse Ox 02/08/21 06:50 36.6 C 75 18 151/87 H 91 02/08/21 03:02 36.7 C 75 16 172/70 H 91 02/08/21 00:09 66 02/07/21 22:52 36.5 C 72 18 156/77 H 95 Laboratory Results 02/08/21 02/08/21 02/08/21 Range/Units 07:32 05:27 05:27 WBC 5.54 (4.8-10.8) K/uL RBC 3.34 L (4.7-6.1) M/uL Hgb 9.9 L (14.0-18.0) g/dL Hct 30.5 L (42-52) % MCV 91.3 (80-100) fL MCH 29.6 (25-34) pg MCHC 32.5 (32-36) g/dL RDW Std Deviation 53.5 H (36.4-46.3) fL RDW Coeff of Penelope 16.3 H (11.5-14.5) % Plt Count 116 L (130-400) K/uL MPV 10.6 H (7.4-10.4) fL Immature Gran % (Auto) 0.5 % Neut % (Auto) 58.9 % Lymph % (Auto) 29.6 % Dickson % (Auto) 9.0 % Eos % (Auto) 1.8 % Baso % (Auto) 0.2 % Neut # (Auto) 3.26 (1.4-6.5) K/uL Lymph # (Auto) 1.64 (1.2-3.4) K/uL Dickson # (Auto) 0.50 (0.11-0.59) K/uL Eos # (Auto) 0.10 (0-0.5) K/uL Baso # (Auto) 0.01 (0-0.2) K/uL Immature Gran # (Auto) 0.03 H (0.00-0.02) K/uL APTT 63.2 H* (21.0-31.0) Seconds PTT Ratio 2.4 Sodium (136-145) mmol/L Potassium (3.5-5.1) mmol/L Chloride (98-107) mmol/L Carbon Dioxide (21-32) mmol/L Anion Gap (3-11) BUN (7-18) mg/dl Creatinine (0.6-1.4) mg/dl Est Cr Clr Drug Dosing ml/min Est GFR ( Amer) Est GFR (Non-Af Amer) BUN/Creatinine Ratio (10-20) Glucose (70-99) mg/dl POC Glucose 125 H (70-99) mg/dl Calcium (8.5-10.1) mg/dl Phosphorus (2.5-4.9) mg/dl Iron (35-175) mcg/dl Transferrin (200-360) mg/dl Transferrin % Sat (20-50) % Ferritin (8-388) ng/ml Albumin (3.4-5.0) gm/dl 02/07/21 02/07/21 02/07/21 Range/Units 22:28 20:47 16:52 WBC (4.8-10.8) K/uL RBC (4.7-6.1) M/uL Hgb (14.0-18.0) g/dL Hct (42-52) % MCV (80-100) fL MCH (25-34) pg MCHC (32-36) g/dL RDW Std Deviation (36.4-46.3) fL RDW Coeff of Penelope (11.5-14.5) % Plt Count (130-400) K/uL MPV (7.4-10.4) fL Immature Gran % (Auto) % Neut % (Auto) % Lymph % (Auto) % Dickson % (Auto) % Eos % (Auto) % Baso % (Auto) % Neut # (Auto) (1.4-6.5) K/uL Lymph # (Auto) (1.2-3.4) K/uL Dickson # (Auto) (0.11-0.59) K/uL Eos # (Auto) (0-0.5) K/uL Baso # (Auto) (0-0.2) K/uL Immature Gran # (Auto) (0.00-0.02) K/uL APTT 72.5 H* (21.0-31.0) Seconds PTT Ratio 2.8 Sodium (136-145) mmol/L Potassium (3.5-5.1) mmol/L Chloride (98-107) mmol/L Carbon Dioxide (21-32) mmol/L Anion Gap (3-11) BUN (7-18) mg/dl Creatinine (0.6-1.4) mg/dl Est Cr Clr Drug Dosing ml/min Est GFR ( Amer) Est GFR (Non-Af Amer) BUN/Creatinine Ratio (10-20) Glucose (70-99) mg/dl POC Glucose 146 H 168 H (70-99) mg/dl Calcium (8.5-10.1) mg/dl Phosphorus (2.5-4.9) mg/dl Iron (35-175) mcg/dl Transferrin (200-360) mg/dl Transferrin % Sat (20-50) % Ferritin (8-388) ng/ml Albumin (3.4-5.0) gm/dl 02/07/21 02/07/21 02/07/21 Range/Units 15:48 13:12 08:45 WBC (4.8-10.8) K/uL RBC (4.7-6.1) M/uL Hgb (14.0-18.0) g/dL Hct (42-52) % MCV (80-100) fL MCH (25-34) pg MCHC (32-36) g/dL RDW Std Deviation (36.4-46.3) fL RDW Coeff of Penelope (11.5-14.5) % Plt Count (130-400) K/uL MPV (7.4-10.4) fL Immature Gran % (Auto) % Neut % (Auto) % Lymph % (Auto) % Dickson % (Auto) % Eos % (Auto) % Baso % (Auto) % Neut # (Auto) (1.4-6.5) K/uL Lymph # (Auto) (1.2-3.4) K/uL Dickson # (Auto) (0.11-0.59) K/uL Eos # (Auto) (0-0.5) K/uL Baso # (Auto) (0-0.2) K/uL Immature Gran # (Auto) (0.00-0.02) K/uL APTT 83.9 H* (21.0-31.0) Seconds PTT Ratio 3.2 Sodium 135 L (136-145) mmol/L Potassium 3.7 (3.5-5.1) mmol/L Chloride 104 (98-107) mmol/L Carbon Dioxide 25 (21-32) mmol/L Anion Gap 6.0 (3-11) BUN 48 H (7-18) mg/dl Creatinine 3.95 H (0.6-1.4) mg/dl Est Cr Clr Drug Dosing 14.4 ml/min Est GFR ( Amer) 15.6 Est GFR (Non-Af Amer) 13.4 BUN/Creatinine Ratio 12.1 (10-20) Glucose 211 H (70-99) mg/dl POC Glucose 113 H (70-99) mg/dl Calcium 8.0 L (8.5-10.1) mg/dl Phosphorus 3.2 (2.5-4.9) mg/dl Iron 38 (35-175) mcg/dl Transferrin 206 (200-360) mg/dl Transferrin % Sat 13 L (20-50) % Ferritin 59.8 (8-388) ng/ml Albumin 2.9 L (3.4-5.0) gm/dl 02/07/21 02/07/21 Range/Units 08:45 08:45 WBC (4.8-10.8) K/uL RBC (4.7-6.1) M/uL Hgb 9.4 L (14.0-18.0) g/dL Hct 28.4 L (42-52) % MCV (80-100) fL MCH (25-34) pg MCHC (32-36) g/dL RDW Std Deviation (36.4-46.3) fL RDW Coeff of Penelope (11.5-14.5) % Plt Count (130-400) K/uL MPV (7.4-10.4) fL Immature Gran % (Auto) % Neut % (Auto) % Lymph % (Auto) % Dickson % (Auto) % Eos % (Auto) % Baso % (Auto) % Neut # (Auto) (1.4-6.5) K/uL Lymph # (Auto) (1.2-3.4) K/uL Dickson # (Auto) (0.11-0.59) K/uL Eos # (Auto) (0-0.5) K/uL Baso # (Auto) (0-0.2) K/uL Immature Gran # (Auto) (0.00-0.02) K/uL APTT 74.6 H* (21.0-31.0) Seconds PTT Ratio 2.8 Sodium (136-145) mmol/L Potassium (3.5-5.1) mmol/L Chloride (98-107) mmol/L Carbon Dioxide (21-32) mmol/L Anion Gap (3-11) BUN (7-18) mg/dl Creatinine (0.6-1.4) mg/dl Est Cr Clr Drug Dosing ml/min Est GFR ( Amer) Est GFR (Non-Af Amer) BUN/Creatinine Ratio (10-20) Glucose (70-99) mg/dl POC Glucose (70-99) mg/dl Calcium (8.5-10.1) mg/dl Phosphorus (2.5-4.9) mg/dl Iron (35-175) mcg/dl Transferrin (200-360) mg/dl Transferrin % Sat (20-50) % Ferritin (8-388) ng/ml Albumin (3.4-5.0) gm/dl Medications Administered Current Inpatient Medications Amitriptyline HCl (Amitriptyline Hcl 10 Mg Tab) 10 mg PO HS MIRIAM Stop: 02/27/21 22:52 Last Admin: 01/30/21 20:47 Dose: 10 mg Documented by: Budesonide (Budesonide Ec 3 Mg Cap) 9 mg PO DAILY MIRIAM Stop: 02/28/21 08:59 Last Admin: 02/07/21 08:06 Dose: 9 mg Documented by: Bumetanide (Bumetanide 1 Mg Tab) 2 mg PO BID MIRIAM Stop: 03/01/21 08:59 Last Admin: 01/31/21 09:00 Dose: Not Given Documented by: Calcitriol (Calcitriol 0.25 Mcg Capsule) 1 mcg PO QAM MIRIAM Stop: 03/03/21 08:59 Last Admin: 02/07/21 08:07 Dose: 1 mcg Documented by: Calcium Carbonate (Calcium Carbonate 500 Mg Chewable Tab) 1,000 mg PO AC MIRIAM Stop: 03/06/21 11:29 Last Admin: 02/07/21 17:15 Dose: 1,000 mg Documented by: Dextrose (Dextrose 50% 50 Ml Syringe) 25 - 50 ml IV UD PRN; Protocol PRN Reason: Hypoglycemia Protocol Stop: 02/28/21 00:14 Donepezil HCl (Donepezil Hcl 10 Mg Tab) 10 mg PO HS MIRIAM Stop: 02/27/21 22:52 Last Admin: 02/07/21 21:05 Dose: 10 mg Documented by: Dutasteride (Dutasteride) 1 ea PO DAILY@1200 MIRIAM Stop: 03/01/21 11:59 Last Admin: 02/07/21 13:46 Dose: 1 ea Documented by: Fludrocortisone Acetate (Fludrocortisone Acetate 0.1 Mg Tab) 0.1 mg PO QPM MIRIAM Stop: 02/27/21 22:52 Last Admin: 02/07/21 21:05 Dose: 0.1 mg Documented by: Glucagon (Glucagon For Inj 1 Mg Vial) 1 mg IM UD PRN; Protocol PRN Reason: Hypoglycemia Protocol Stop: 02/28/21 00:14 Glucose (Glucose 40% Gel 15 Gm Tube) 15 - 30 gm PO UD PRN; Protocol PRN Reason: Hypoglycemia Protocol Stop: 02/28/21 00:14 Glucose (Glucose 10 Tabs/Tube) 4 - 8 tabs PO UD PRN; Protocol PRN Reason: Hypoglycemia Protocol Stop: 02/28/21 00:14 Heparin Sodium/Dextrose (Heparin Sodium/Dextrose) 25,000 units in 500 mls @ 21 mls/hr IV .[id number] [facility]; Protocol Stop: 03/07/21 20:59 Last Titration: 02/08/21 06:46 Dose: 1,050 units/hr, 21 mls/hr Documented by: Iron Sucrose 200 mg/ Sodium (Chloride) 110 mls @ 220 mls/hr IV DAILY [facility] Stop: 02/12/21 09:29 Insulin Aspart (Insulin Aspart 100 Units/Ml 3 Ml Pen) 0 units SC ACHS [facility] Stop: 03/04/21 07:29 Last Admin: 02/07/21 21:06 Dose: Not Given Documented by: Insulin Glargine (Insulin Glargine Solostar 100 Units/Ml 3 Ml Pen) 11 units SC QAM [facility] Stop: 03/08/21 08:59 Last Admin: 02/07/21 08:07 Dose: 11 units Documented by: Lidocaine (Lidocaine 5% 1 Patch) 1 patch TD DAILY PRN PRN Reason: Pain Stop: 02/27/21 22:52 Last Admin: 01/29/21 13:38 Dose: 1 patch Documented by: Meclizine HCl (Meclizine Hcl 25 Mg Tab) 25 mg PO DAILY PRN PRN Reason: Vertigo Stop: 02/27/21 22:52 Melatonin (Melatonin 3 Mg Tab) 3 - 6 mg PO HS PRN PRN Reason: Sleep Stop: 03/06/21 18:56 Last Admin: 02/06/21 23:43 Dose: 6 mg Documented by: Metoprolol Succinate (Metoprolol Succ 50mg Ext Rel Tab) 100 mg PO BID [facility] Stop: 02/27/21 22:52 Last Admin: 02/07/21 21:05 Dose: 100 mg Documented by: Miscellaneous (Remove Lidoderm Patch) 1 ea N/A DAILY@2100 PRN PRN Reason: IF PATCH APPLIED Stop: 02/27/21 22:52 Miscellaneous (Carbohydrates For Hypoglycemia ) 15 - 30 gm PO UD PRN PRN Reason: Hypoglycemia Treatment Stop: 02/28/21 00:14 Miscellaneous Information (Pharmacy Glycemic Mgmt Consult) 1 ea N/A UD PRN PRN Reason: Consult Stop: 02/27/21 23:07 Morphine Sulfate (Morphine Sulfate 2 Mg/Ml Carp) 2 mg IV Q6H PRN PRN Reason: Pain Stop: 02/21/21 08:25 Last Admin: 02/07/21 22:07 Dose: 2 mg Documented by: Ondansetron HCl (Ondansetron Inj 2 Mg/Ml 2 Ml Vial) 4 mg IV Q6H PRN PRN Reason: Nausea Stop: 03/02/21 08:29 Last Admin: 02/07/21 22:07 Dose: 4 mg Documented by: Polyethylene Glycol (Polyethylene (Miralax) 17 Gm Pack) 17 gm PO DAILY PRN PRN Reason: Constipation Stop: 02/27/21 22:52 Prednisone (Prednisone 5 Mg Tab) 5 mg PO QAM [facility] Stop: 02/28/21 08:59 Last Admin: 02/07/21 08:07 Dose: 5 mg Documented by: Tacrolimus (Tacrolimus 1 Mg Cap) 2 mg PO BID [facility] Stop: 02/27/21 22:52 Last Admin: 02/07/21 21:05 Dose: 2 mg Documented by: Tamsulosin HCl (Tamsulosin Hcl 0.4 Mg Cap) 0.4 mg PO QPM MIRIAM Stop: 02/27/21 22:52 Last Admin: 02/07/21 21:06 Dose: 0.4 mg Documented by: Ursodiol (Ursodiol 300 Mg Cap) 300 mg PO BID [facility] Stop: 02/27/21 22:52 Last Admin: 02/07/21 20:32 Dose: 300 mg Documented by: Venlafaxine HCl (Venlafaxine Hcl 50 Mg Tab) 25 mg PO DAILY@1700 [facility] Stop: 03/04/21 16:59 Last Admin: 02/07/21 17:50 Dose: 25 mg Documented by: Resident Activity Tracking Resident Involvement: Resident Care Provided Care Provided: Adult Hospital Medicine
[2021-02-08 08:23] LABS: BUN Creatinine Ratio 9.2 (10-20); Creatinine Clr Calc Pharmacy 16.3 ml/min; Est GFR (African American) 18.2; Est GFR (Non-African American) 15.7; Potassium 4.2 mmol/L (3.5-5.1)
[2021-02-08] MEDS: ursodioL 300 MG CAP PO SCH ×2 (08:27→21:28)
[2021-02-08] MEDS: predniSONE 5 MG TAB PO SCH (08:27)
[2021-02-08] MEDS: BUDESONIDE EC 3 MG CAP PO SCH (08:27)
[2021-02-08] MEDS: CALCITRIOL 0.25 MCG CAPSULE PO SCH (08:28)
[2021-02-08] MEDS: METOPROLOL SUCC 50MG EXT REL TAB PO SCH ×2 (08:28→21:29)
[2021-02-08] MEDS: TACROLIMUS 1 MG CAP PO SCH ×2 (08:29→21:29)
[2021-02-08] MEDS: INSULIN ASPART 100 UNITS/ML 3 ML PEN SC SCH ×4 (08:30→20:44)
[2021-02-08] MEDS: INSULIN GLARGINE SOLOSTAR 100 UNITS/ML 3 ML PEN SC SCH (08:32)
[2021-02-08] MEDS: IRON SUCROSE 200 MG in 0.9 % SODIUM CHLORIDE 100 ML IV SCH (08:54)
--- NOTE | 2021-02-08 09:58 | Nephrology Progress Note ---
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 Dale 02/05 with first HD treatment performed 02/05 * Will plan short HD Tuesday and monitor IJ THC catheter function. This can be performed at [facility] if transfer is anticipated * Left arm nephrology precaution for future AV fistula placement (2) Bilateral pleural effusion: * Will attempt additional 1 L UF with HD Tuesday (3) Secondary hyperparathyroidism of renal origin: * Calcitriol 1 mcg QAM * Calcium carbonate with meals (4) Anemia: * Iron deficient (iron sat 13% , ferritin 59). Will provide 1 g IV Venofer (day #2 of 5) * Patient given Epogen 40,000 units SQ x1 02/07/21 (5) Hypertension: * BP is acceptable * Continue metoprolol Admission and Anticipated Discharge Date Admission Date: January 28, 2021 Subjective Mr. Herrera was seen & examined in his hospital room this morning. He was breathing comfortably flat in bed on RA. HD was completed yesterday for 1 L UF. IJ THC ran A-->A without alarming at Qb 250 cc/min. Review of Systems Constitutional: + weakness; no fever Eyes: no problem reported Ear, Nose, Mouth, Throat: no problem reported Respiratory: no dyspnea Cardiovascular: no chest pain Gastrointestinal: no abdominal pain Musculoskeletal: no back pain Integumentary: no rash Neurologic: no confusion Physical Exam Constitutional: + thin and + frail appearing Eyes: PERRL, conjunctivae normal, anicteric sclerae ENMT: external ear and nose normal, oropharynx normal Neck: trachea midline, no thyromegaly (R IJ THC in place with clean, dry dressing ) Respiratory: normal respiratory effort, lungs clear to auscultation Cardiovascular: RRR, no murmur, no edema Gastrointestinal (Abdomen): normal bowel sounds, soft, nontender, no hepatosplenomegaly Musculoskeletal: Extremities: no cyanosis (R arm is swollen due to prior IV infiltration) Neurologic: awake; not confused Results & Data ([facility]) Vital Signs (Past 12 Hours) Vital Signs Temp Pulse Pulse Resp BP BP Pulse Ox 02/08/21 09:11 75 153/83 H 02/08/21 08:54 69 164/72 H 02/08/21 06:50 36.6 C 75 18 151/87 H 91 02/08/21 03:02 36.7 C 75 16 172/70 H 91 02/08/21 00:09 66 02/07/21 22:52 36.5 C 72 18 156/77 H 95 Laboratory Tests 02/08/21 02/08/21 05:27 05:36 WBC 5.54 Hgb 9.9 L Hct 30.5 L Plt Count 116 L Sodium 135 L Potassium 4.2 Chloride 105 Carbon Dioxide 24 BUN 32 H Creatinine 3.47 H D Glucose 116 H Calcium 8.0 L PG Care Time/CCT Total # of Minutes Spent Total Time Spent with Patient: Total time spent is greater than 50% in coordination of care (as documented) at patient's floor/unit and/or counseling patient: Coding Level of Care Code 27528 Subseq Hosp Care Lvl 3 Diagnoses ESRD (end stage renal disease) on dialysis N18.6; Z99.2 Bilateral pleural effusion J90 Secondary hyperparathyroidism of renal origin N25.81 Anemia D64.9 Hypertension I10 Hypertension type: unspecified (1) Hypertension Hypertension type: unspecified Qualified Code(s): I10 - Essential (primary) hypertension
[2021-02-08] MEDS: ONDANSETRON INJ 2 MG/ML 2 ML VIAL IV PRN (11:56)
[2021-02-08] MEDS ORDERED: PROMETHAZINE HCL 6.25 MG in SODIUM CHLORIDE 0.9% 50 ML IV STA (14:00)
[2021-02-08] MEDS: DUTASTERIDE PO SCH (16:09)
[2021-02-08] MEDS: HEPARIN SODIUM/DEXTROSE 25,000 UNITS/500 ML BAG IV SCH (16:14)
--- NOTE | 2021-02-08 16:51 | Billing Data ---
Date of Service February 08, 2021 Coding Level of Care Code 58349 Subseq Hosp Care Lvl 2
[2021-02-08] MEDS: VENLAFAXINE HCL 50 MG TAB PO SCH (16:53)
[2021-02-08] MEDS: METOPROLOL TARTRATE 1 MG/ML VIAL IV PRN ×2 (17:44→18:32)
[2021-02-08] MEDS ORDERED: METOPROLOL TARTRATE 1 MG/ML VIAL IV STA (18:53)
[2021-02-08] MEDS: FLUDROCORTISONE ACETATE 0.1 MG TAB PO SCH (21:27)
[2021-02-08] MEDS: TAMSULOSIN HCL 0.4 MG CAP PO SCH (21:28)
[2021-02-08] MEDS: DONEPEZIL HCL 10 MG TAB PO SCH (21:28)
[2021-02-09 06:37] LABS: Basophils # (auto) 0.01 K/uL (0-0.2); Basophils % (auto) 0.1 %; Eosinophils % (auto) 1.5 %; Hemoglobin 10.4 g/dL (14.0-18.0); Immature Granulocytes # (auto) 0.04 K/uL (0.00-0.02); Immature Granulocytes % (auto) 0.6 %; Lymphocytes # (auto) 1.93 K/uL (1.2-3.4); Lymphocytes % (auto) 28.5 %; Mean Corpuscular Hemoglobin 29.7 pg (25-34); Mean Corpuscular Hgb Conc 32.5 g/dL (32-36); Mean Corpuscular Volume 91.4 fL (80-100); Mean Platelet Volume 10.4 fL (7.4-10.4); Monocytes % (auto) 8.9 %; Neutrophils # (auto) 4.09 K/uL (1.4-6.5); Neutrophils % (auto) 60.4 %; Platelet Count 152 K/uL (130-400); RDW Coefficient of Variation 16.8 % (11.5-14.5); RDW Standard Deviation 54.2 fL (36.4-46.3); White Blood Count 6.77 K/uL (4.8-10.8)
[2021-02-09 06:58] LABS: Partial Thromboplastin Ratio 2.7
[2021-02-09] MEDS ORDERED: SODIUM CHLORIDE 0.9% 1000ML 1,000 ML IV PRN (07:00)
[2021-02-09 07:04] LABS: BUN Creatinine Ratio 9.2 (10-20); Calcium 8.5 mg/dl (8.5-10.1); Creatinine Clr Calc Pharmacy 14.1 ml/min; Est GFR (African American) 15.3; Est GFR (Non-African American) 13.2; Magnesium 1.9 mg/dl (1.8-2.4); Potassium 4.3 mmol/L (3.5-5.1)
[2021-02-09 07:13] LABS: Partial Thromboplastin Time 71.4 Seconds (21.0-31.0)
[2021-02-09] MEDS: HEPARIN SODIUM/DEXTROSE 25,000 UNITS/500 ML BAG IV SCH ×2 (07:15→14:38)
[2021-02-09] MEDS: predniSONE 5 MG TAB PO SCH (08:21)
[2021-02-09] MEDS: CALCITRIOL 0.25 MCG CAPSULE PO SCH (08:22)
[2021-02-09] MEDS: CALCIUM CARBONATE 500 MG CHEWABLE TAB PO SCH ×2 (08:22→11:57)
[2021-02-09] MEDS: BUDESONIDE EC 3 MG CAP PO SCH (08:22)
[2021-02-09] MEDS: TACROLIMUS 1 MG CAP PO SCH (08:23)
[2021-02-09] MEDS: ursodioL 300 MG CAP PO SCH (08:23)
[2021-02-09] MEDS: INSULIN GLARGINE SOLOSTAR 100 UNITS/ML 3 ML PEN SC SCH (08:24)
[2021-02-09] MEDS: INSULIN ASPART 100 UNITS/ML 3 ML PEN SC SCH ×2 (08:24→12:01)
--- NOTE | 2021-02-09 08:44 | Nephrology Progress Note ---
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 Dale 02/05 with first HD treatment performed 02/05 * Will plan short HD today and monitor IJ THC catheter function * Left arm nephrology precaution for future AV fistula placement (2) Bilateral pleural effusion: * Will attempt additional 1 L UF with HD today (3) Secondary hyperparathyroidism of renal origin: * Calcitriol 1 mcg QAM * Calcium carbonate with meals (4) Anemia: * Iron deficient (iron sat 13% , ferritin 59). Will provide 1 g IV Venofer (day #3 of 5) * Patient given Epogen 40,000 units SQ x1 02/07/21 (5) Hypertension: * BP is acceptable * Continue metoprolol Admission and Anticipated Discharge Date Admission Date: January 28, 2021 Subjective Mr. Herrera was seen & examined in his hospital room this morning. He was breathing comfortably flat in bed on RA. Mr. Herrera voiced no new medical concerns. He is awaiting HD later this morning. Review of Systems Constitutional: + weakness; no fever Eyes: no problem reported Ear, Nose, Mouth, Throat: no problem reported Respiratory: no dyspnea Cardiovascular: no chest pain Gastrointestinal: no abdominal pain Musculoskeletal: no back pain Integumentary: no rash Neurologic: no confusion Physical Exam Constitutional: + thin and + frail appearing Eyes: PERRL, conjunctivae normal, anicteric sclerae ENMT: external ear and nose normal, oropharynx normal Neck: trachea midline, no thyromegaly (R IJ THC in place with clean, dry dressing ) Respiratory: normal respiratory effort, lungs clear to auscultation Cardiovascular: RRR, no murmur, no edema Gastrointestinal (Abdomen): normal bowel sounds, soft, nontender, no hepatosplenomegaly Musculoskeletal: Extremities: no cyanosis (R arm is swollen due to prior IV infiltration) Neurologic: awake; not confused Results & Data ([facility]) Vital Signs (Past 12 Hours) Vital Signs Temp Pulse Pulse Pulse Resp BP Pulse Ox 02/09/21 03:22 36.4 C L 93 H 18 94 02/09/21 00:44 142/78 H 02/08/21 23:59 100 H 02/08/21 23:29 37.0 C 99 H 18 97 02/08/21 21:17 99 H 170/86 H Laboratory Tests 02/09/21 02/09/21 06:16 06:16 WBC 6.77 Hgb 10.4 L Hct 32.0 L Plt Count 152 Sodium 135 L Potassium 4.3 Chloride 103 Carbon Dioxide 25 BUN 37 H Creatinine 4.02 H D Glucose 140 H Calcium 8.5 PG Care Time/CCT Total # of Minutes Spent Total Time Spent with Patient: Total time spent is greater than 50% in coordination of care (as documented) at patient's floor/unit and/or counseling patient: Coding Level of Care Code 81756 Subseq Hosp Care Lvl 3 Diagnoses ESRD (end stage renal disease) on dialysis N18.6; Z99.2 Bilateral pleural effusion J90 Secondary hyperparathyroidism of renal origin N25.81 Anemia D64.9 Hypertension I10 Hypertension type: unspecified (1) Hypertension Hypertension type: unspecified Qualified Code(s): I10 - Essential (primary) hypertension
[2021-02-09] MEDS: LIDOCAINE 5% 1 PATCH TD PRN (08:57)
--- NOTE | 2021-02-09 09:13 | Electrocardiogram Report ---
Test Reason : Blood Pressure : / mmHG Vent. Rate : 120 BPM Atrial Rate : 197 BPM P-R Int : 000 ms QRS Dur : 092 ms QT Int : 330 ms P-R-T Axes : 000 012 194 degrees QTc Int : 466 ms Atrial fibrillation with rapid ventricular response Chronic ST depression in Anterolateral leads Abnormal ECG When compared with ECG of 31-JAN-2021 12:15, No significant change Confirmed by Kunal Wang ([id number]) on 02/09/2021 9:13:15 AM Referred By: Jhonny Cobos Confirmed By:Kunal Wang
[2021-02-09] MEDS: IRON SUCROSE 200 MG in 0.9 % SODIUM CHLORIDE 100 ML IV SCH (10:00)
--- NOTE | 2021-02-09 11:56 | Hospitalist Progress Note ---
Date of Service February 09, 2021 Assessment & Plan Admission and Anticipated Discharge Date Admission Date: January 28, 2021 Results & Data Results & Data ([facility]) Vital Signs (Past 12 Hours) Vital Signs Temp Pulse Pulse Pulse Pulse Resp BP 02/09/21 11:10 37.1 C 89 89 129/59 L 02/09/21 11:00 54 L 159/85 H 02/09/21 10:40 64 134/119 H 02/09/21 10:20 89 115/63 02/09/21 10:00 46 L 119/89 02/09/21 09:40 69 119/46 L 02/09/21 09:20 70 134/99 02/09/21 09:07 36.7 C 70 70 149/99 H 02/09/21 03:22 36.4 C L 93 H 18 02/09/21 00:44 02/08/21 23:59 100 H BP BP Pulse Ox 02/09/21 11:10 129/59 L 02/09/21 11:00 02/09/21 10:40 02/09/21 10:20 02/09/21 10:00 02/09/21 09:40 02/09/21 09:20 02/09/21 09:07 02/09/21 03:22 94 02/09/21 00:44 142/78 H 02/08/21 23:59
[2021-02-09] MEDS: METOPROLOL SUCC 50MG EXT REL TAB PO SCH (11:58)
[2021-02-09] MEDS: DUTASTERIDE PO SCH (11:59)
--- NOTE | 2021-02-09 13:26 | Pharmacy Report ---
Pharmacy Glycemic Short Note 2 - Date of Service February 09, 2021 - Glycemic Short BSG Results (Last 24 hours): 02/08/21 02/08/21 02/09/21 16:28 20:36 06:16 Glucose 140 H POC Glucose 80 100 H 02/09/21 02/09/21 07:47 11:40 Glucose POC Glucose 150 H 156 H OUTPATIENT ANTIDIABETIC REGIMEN: * Tresiba 11 units SC AM * Novolog 7-9 units SC breakfast, 5-7 units SC lunch, 3-4 units dinner * HbA1c = 7.6% (01/29/21) ASSESSMENT: 02/09/21: * Mr Herrera's BSGs have been quite stable for the past 48hr+. * Pt to have HD again today. * No changes at this time. 02/06 * Pt has received 18 units of insulin over the past 24hrs * 8 units of basal with Lantus * 10 units of bolus with NovoLog * BSGs [phone] mg/dl * Diet resumed after tunnel cath placement yesterday. Tolerated PO adequately CHO counts. Will increase basal back to baseline dosing of 11 units SQ Daily in AM. Dose reduced yesterday for NPO status. * Pt remains on prednisone 5mg PO daily (outpatient dosing) and IV heparin infusion (mixed in dextrose). * HD yesterday and scheduled again for today. * No changes needed today. 02/05 * Pt has received 29 units of insulin over the past 24hrs * 11 units of basal with Lantus * 18 units of bolus with NovoLog * BSGs [phone] mg/dl * Pt NPO today for tunnel cath placement. Will decrease Lantus ~25% for NPO 02/04 * Patient received 35 units of insulin yesterday, of which 11 units were basal * Fasting BSG trending down, 167 mg/dL - patient NPO tomorrow AM for dialysis cath placement / plan to reduce AM Lantus * Lunch BSGs trending upward, may consider tightening CR in AM at breakfast at account for this PLAN FOR INPATIENT GLYCEMIC CONTROL: * Basal insulin * Resume Lantus 11 units SQ AM * Bolus insulin - no change * NovoLog per scale ACHS or Q6hrs while NPO * Goal Range: Low 110 mg/dL - High 160 mg/dL * Correction Factor: 20 mg/dL/unit * Nutritional / Prandial insulin per carb ratio of 1 unit per 7 grams CHO consumed PLAN FOR DISCHARGE: * HbA1c is 7.6% from this admission which has increased from 7.1% in August 2020. This is still below his goal HbA1c of 8%. * However, this result is likely somewhat unreliable in ESRD patients d/t interactions between the A1c analyzing technique and high levels of urea in ESRD, reduced RBC life span, iron deficiency anemia, and EPO administration. HbA1c > 7.5% in ESRD patient may overestimate the extent of hyperglycemia in ESRD patients. * Continue with outpatient regimen as long as patient is not experiencing any hypoglycemia at home. Report any persistent highs/lows to outpatient provider.
--- NOTE | 2021-02-09 14:21 | Electrocardiogram Report ---
Test Reason : Blood Pressure : / mmHG Vent. Rate : 114 BPM Atrial Rate : 113 BPM P-R Int : 000 ms QRS Dur : 090 ms QT Int : 330 ms P-R-T Axes : 000 013 180 degrees QTc Int : 454 ms Poor data quality, interpretation may be adversely affected Atrial fibrillation with rapid ventricular response Anterior infarct , age undetermined Abnormal ECG When compared with ECG of 31-JAN-2021 12:15, No significant change Confirmed by Moises Bernal ([id number]) on 02/09/2021 2:20:46 PM Referred By: Jhonny Cobos Confirmed By:Moises Bernal
[2021-02-09 14:40] LABS: Partial Thromboplastin Time 106.4 Seconds (21.0-31.0)
[2021-02-09] MEDS ORDERED: APIXABAN 2.5 MG TAB PO SCH (16:00)
--- NOTE | 2021-02-09 16:20 | Discharge Summary ---
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 Rider, elisha, chronic pericardial effusion followed by Dr. 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 Hewitt. He comes to the emergency room for complaints of increased shortness of breath. The HPI was gathered from the patient and secondary to the patient being hard of hearing. The giovanytent's shortness of breath has been ongoing, but got progressively worse ~ Janurary. Since then his walking distance has decreased to around 450 feet, where as before he was able to do about 200 yards, and he now has to stop to take a break going up and down his 13 steps at home. The shortness of breath is not associated with any chest pain or palpitations, light headedness or dizziness. It takes him about 10 minutes to catch his breath. In the Emergency room he had a CT scan of his chest performed. This shows bilateral pulmonary effusions moderate with right > left and moderate pericardial effusion that reports less than previously. He has recently had his diuretic dosing changed and no change in his breathlessness reported by his . She also endorses that his lower extremity edema appears worse at this time as well. Patient will be admitted for continued workup of breathlessness, pleural effusions, monitoring of renal function, and heart function. Admission Exam Per Admitting Provider General: awake, alert, no apparent distress Head: Normocephalic, atraumatic ENT: PERRL, EOMI, no pharyngeal exudate, mucous membranes moist Neuro: AAO x 3, speech clear and appropriate, strength intact bilaterally 5/5, sensation intact and equal all extremities and dermatomes, no pronator drift Chest: equal rise and fall of the chest, no accessory muscle use, no heaves or thirlls, deminshed breath sounds throughout RT>LT to auscultation, Cardiac: irregular rate and rhythm, telemetry reviewed, skin warm dry, cap refill <3 seconds, peripheral pulses +2 no JVD, no murmur, +2-3 edema GI: NABS x 4 quadrants, soft, nontender to palpation, no rebound, guarding or tenderness : Spontaneously voiding, no pain, no CVA tenderness, Extremities: Normal inspection, no peripheral edema or erythema, calfs nontender to palpation Psych: Normal mood and affect Skin: bruising to bilateral hands, bruising to abdomen from injection sites, no rash or erythema Principal Diagnosis ESRD Discharge Exam Well-appearing, frail man laying in bed, comfortable, no acute distress NCAT, MMM CV irregularly irregular rhythm, rate regular Resp- breath sounds clear bilaterally, no increased WOB Chest wall with ecchymosis surrounding dialysis catheter site, minimally tender, no erythema, edema, pus, or exudate appreciated Neuro: alert, oriented x4, no appreciable tremor Psych: euthymic affect, cooperative, pleasant Discharge Data Allergies Allergy/AdvReac Type Severity Reaction Status Date / Time aspirin AdvReac Unknown high doses Verified 01/28/21 19:57 contrindicated d/t hx liver transplant gabapentin AdvReac Unknown shakiness Verified 02/01/21 20:25 and impaired mobility ibuprofen AdvReac Unknown not to Verified 01/28/21 19:57 take due to transplant Consultations 01/28/21 19:30 ED Decision to Admit Stat 01/28/21 22:53 Consult Nephrology Routine Consult Pulmonology Routine 01/31/21 19:59 Consult Neurology Routine 02/02/21 10:02 Consult Palliative Care Routine 02/03/21 09:28 Consult General Surgery Routine 02/09/21 14:14 Consult [facility] car bracer Routine Procedures Performed Operation Date: 02/05/21 09:35 Actual Procedures p Insertion of Tunneled Dialysis Catheter, Right Jugular Approach, Ultrasound Localization of Right Jugular Vein, Fluoroscopy for Positioning(Right) - Ramy Dale, Ordered Studies 01/28/21 17:42 CT chest diagnostic wo con Stat 01/31/21 08:31 CT head/brain wo con Stat 01/31/21 13:29 US point of care ultrasound Urgent 02/01/21 00:09 MR brain wo con Urgent 02/02/21 23:16 FL video swallow Routine 02/05/21 09:23 EV cvc insrt tunnel wo prt/adoption worker Routine US EV guide vascular access Routine Hospital Course (1) ESRD (end stage renal disease) on dialysis: 80yo male with complex medical history including CKD4, liver transplant (1994) on tacrolimus, HTN, memory impairment 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 Had a tunneled dialysis placed on 02/05 and a few short courses of HD since. Dialysis catheter is functioning, might need a revision in the future but for now it is functioning and ready for use. 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 -routine post op care -catheter functional, patient tolerating dialysis well -discontinuing heparin drip upon discharge and restarted eliquis bid on 02/10 -as noted above, dialysis cath might need revision with general surgery moving forward. Appt scheduled as above 02/18/21 Anemia: -Iron deficient (iron sat 13% , ferritin 59). Per nephro - to provide 1 g IV Venofer for total of 5 days, will need for 2 more days -Patient given Epogen 40,000 units SQ x1 02/07/21 Dysphagia -no stroke on MRI -ongoing speech therapy evaluation/treatment; appreciate recommendations -pureed nectar thick diet Hypocalcemia/Secondary hyperparathyroidism of renal origin -repleting. Last Ca 8.5 on day of discharge -Calcitriol 1 mcg QAM -Calcium carbonate with meals Pleural effusion, chronic pericardial effusion, suspected pneumonia -echo (01/29): normal LV function, EF 55-60%, pericardial effusion chronic and small -s/p thoracentesis (01/31) removing 1750mL from right lung (transudative) -no signs of infectious process - pneumonia no longer suspected, unasyn discontinued -stable; maintaining adequate oxygenation on room air Atrial fibrillation -heparin ggt; discontinuing upon discharge and restarting eliquis, as above -continue metoprolol 100mg PO bid DM2 with neuropathy -A1c 7.6% (01/29/21) -was placed on SSI while inpt, will resume home regimen on discharge as noted below: -Tresiba 11u sc AM -Novolog 7-9u SC breakfast -Novloog 5-7u SC lunch -Novolog 3-4u SC dinner Liver transplant recipient -continue prograf, prednisone, delgado Memory impairment -remote and recent memory relatively intact on exam -continue donepezil JANES -continue CPAP BPH -continue tamsulosin, dutasteride DVT ppx: heparin switched to Eliquis. At time of discharge, pt with no other acute concerns or complaints (2) Palliative care encounter: (3) Tremor: (4) Anemia: (5) Bilateral pleural effusion: (6) Type 2 DM with CKD stage 4 and hypertension: Total Time Total Time Spent Total Time Spent (In Minutes): See attending documentation Discharge Plan Discharge Items Patient Disposition: Transfer Longterm Fac Reason For Visit: SHORTNESS OF BREATH Discharge Diagnosis: ESRD Activity: Resume your previous activity Non-emergency contact: Primary Care Provider Call non-emergency contact if: you have any medication questions, your symptoms worsen and you have a fever Follow-up/Referrals: Ramy Dale DO [Surgeon] - 02/18/21 9:15 am (Follow up in clinic within 2 weeks) Jhonny Cobos DO [Primary Care Provider] - 02/16/21 10:00 am (If you have any questions or need to change this appointment, please call [phone].) Diet: Carb Consistent or DM2 and Dialysis Renal Addtl Attending Provider Instructions: 80yo male with complex medical history including CKD4, liver transplant (1994) on tacrolimus, HTN, memory impairment 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 Had a tunneled dialysis placed on 02/05 and a few short courses of HD since. Dialysis catheter is functioning, might need a revision in the future but for now it is functioning and ready for use. 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 -routine post op care -catheter functional, patient tolerating dialysis well -discontinuing heparin drip upon discharge and restarted eliquis bid on 02/10 -as noted above, dialysis cath might need revision with general surgery moving forward. Appt scheduled as above 02/18/21 Anemia: -Iron deficient (iron sat 13% , ferritin 59). Will provide 1 g IV Venofer for total of 5 days, will need for 2 more days -Patient given Epogen 40,000 units SQ x1 02/07/21 Dysphagia -no stroke on MRI -ongoing speech therapy evaluation/treatment; appreciate recommendations -pureed nectar thick diet Hypocalcemia/Secondary hyperparathyroidism of renal origin -repleting. Last Ca 8.5 on day of discharge -Calcitriol 1 mcg QAM -Calcium carbonate with meals Pleural effusion, chronic pericardial effusion, suspected pneumonia -echo (01/29): normal LV function, EF 55-60%, pericardial effusion chronic and small -s/p thoracentesis (01/31) removing 1750mL from right lung (transudative) -no signs of infectious process - pneumonia no longer suspected, unasyn discontinued -stable; maintaining adequate oxygenation on room air Atrial fibrillation -heparin ggt; discontinuing upon discharge and restarting eliquis, as above -continue metoprolol 100mg PO bid DM2 with neuropathy -A1c 7.6% (01/29/21) -was placed on SSI while inpt, will resume home regimen on discharge as noted below: -Tresiba 11u sc AM -Novolog 7-9u SC breakfast -Novloog 5-7u SC lunch -Novolog 3-4u SC dinner Liver transplant recipient -continue prograf, prednisone, delgado Memory impairment -remote and recent memory relatively intact on exam -continue donepezil JANES -continue CPAP BPH -continue tamsulosin, dutasteride DVT ppx: heparin switched to Eliquis. At time of discharge, pt with no other acute concerns or complaints Pending Studies at Discharge: No Stand-Alone Forms: My [facility] Skilled Items Patient informed of condition?: Yes DNR: Yes Discharge Level of Care: Skilled Communicable Disease: No Discharge Prognosis: Stable Lines: Peripheral IV Urinary Catheter: No Medications and DC Order Prescriptions: New calcium carbonate [Tums] 200 mg calcium (500 mg) Tablet,Chewable 1,000 mg PO AC 30 Days Qty: 450 RF: 0 Venofer 200 mg iron/10 mL solution 1,000 mg IV DAILY 2 Days Qty: 100 RF: 0 Continued Prolia 60 mg/mL syringe 60 mg SUBCUT Q6MO Qty: 1 RF: 1 venlafaxine 37.5 mg capsule,extended release 24hr 37.5 mg PO DAILY@1700 Qty: 30 RF: 5 meclizine 25 mg tablet 25 mg PO DAILY PRN (Reason: VERTIGO) Qty: 30 RF: 5 calcitriol 0.5 mcg capsule 0.5 mcg PO QAM 90 Days Qty: 90 RF: 3 Hold Instructions: elevated calcium level metoprolol succinate 50 mg tablet extended release 24 hr 100 mg PO BID Qty: 120 RF: 5 hydrocortisone [Anusol-HC] 2.5 % cream with perineal applicator [address] DAILY PRN (Reason: hemorrhoids) Qty: 28.35 RF: 0 lidocaine 5 % adhesive patch,medicated 1 patch TOP DAILY PRN (Reason: Pain) RF: 0 polyethylene glycol 3350 17 gram powder in packet 17 gm PO DAILY PRN (Reason: Constipation) RF: 0 (DME) lancets [OneTouch Delica Lancets] 33 gauge misc See Rx Instructions .ROUTE .MEDSUPPLY Qty: 300 RF: 3 (DME) OneTouch Verio test strips Strip See Rx Instructions .ROUTE .MEDSUPPLY Qty: 300 RF: 3 Calmoseptine 0.44-20.6 % ointment 1 applic topical QID PRN (Reason: skin irritation) Qty: 113 RF: 5 cyanocobalamin (vitamin B-12) 1,000 mcg capsule 1,000 mcg PO DAILY Qty: 30 RF: 0 amitriptyline 10 mg tablet 10 mg PO .qhs Qty: 30 RF: 2 Eliquis 2.5 mg tablet 2.5 mg PO BID Qty: 60 RF: 5 tacrolimus [Prograf] 1 mg Capsule 2 mg PO BID RF: 0 donepezil 10 mg tablet 10 mg PO HS RF: 0 tamsulosin [Flomax] 0.4 mg capsule 0.4 mg PO QPM RF: 0 fludrocortisone 0.1 mg tablet 0.1 mg PO QPM RF: 0 dutasteride 0.5 mg capsule 0.5 mg PO QDL RF: 0 Tresiba FlexTouch U-100 100 unit/mL (3 mL) insulin pen 11 unit subcut QAM RF: 0 insulin aspart U-100 [Novolog Flexpen U-100 Insulin] 100 unit/mL (3 mL) insulin pen See Rx Instructions subcut .COMPLEX RF: 0 prednisone 5 mg Tablet 5 mg PO QAM RF: 0 calcium carbonate [Calcium 600] 600 mg calcium (1,500 mg) Tablet 600 mg PO BID RF: 0 ursodiol 300 mg Capsule 300 mg PO BID RF: 0 [employer] 1.5 billion cell Capsule 1 cap PO QAM RF: 0 gabapentin 100 mg capsule 100 mg PO TID PRN (Reason: Pain) RF: 0 acetaminophen 325 mg Tablet 650 mg PO BID PRN (Reason: Fever Or Pain) RF: 0 Discontinued budesonide 3 mg capsule,delayed,extend.release 9 mg PO DAILY Qty: 90 RF: 1 furosemide [Lasix] 20 mg tablet 40 mg PO QAM Qty: 90 RF: 2 aspirin 81 mg Tablet,Delayed Release (Dr/Ec) 81 mg PO QAM RF: 0 acetaminophen 500 mg Tablet 500 mg PO .WITH LUNCH PRN (Reason: Unknown) RF: 0 Discharge Orders: Discharge Order (Routine); Ordered 02/09/21 Ordered By: Gaurang Osorio/Other Patient Handouts: Managing Type 2 Diabetes Admission Data Admit Date/Time: 01/28/21 21:05 Attending Provider: Lorri Arellano Admit Provider: Terrence Puente Primary Care Provider: Jhonny Cobos Other Providers: [facility] ; Eugenio Langley ; Preethi Gasca ; Ekta Mai ; Martina Zapata ; Maryanne Anaya ; Ramy Dale ; Lorri Arellano Other Interventions: Discharge Summary Assessment (RN) Last Done: 02/09/21 16:01 Supervising Physician Co-Signing Physician Notes Resident Physician Supervision Note: I independently interviewed and examined the patient and verified the reeves history and physical, reviewed labs and image studies, discussed the case with the resident Dr. Burrows and agree with the findings and care plan. Resident Activity Tracking Resident Involvement: Resident Care Provided Care Provided: Adult [facility]
--- NOTE | 2021-02-27 07:17 | Coding Query ---
CONGESTIVE HEART FAILURE To Promote full compliance with coding requirements relating to patient care, physician participation is requested in all cases of associate professor of pathology uncertainty. Please assist us with the following questions. A diagnosis of Congestive Heart Failure is documented in the patient's medical record. 02/06 & 02/07 Hospitalist notes mention HFpEF . Thanks for your help! Andrew New, RF TEST TECHNICIAN [facility] SYSTOLIC HEART FAILURE ( ) Acute ( ) Chronic ( ) Acute on Chronic ( ) Rheumatic ( ) Unknown DIASTOLIC HEART FAILURE ( ) Acute ( ) Chronic (x ) Acute on Chronic ( ) Rheumatic ( ) Unknown COMBINED SYSTOLIC AND DIASTOLIC HEART FAILURE ( ) Acute ( ) Chronic ( ) Acute on Chronic ( ) Rheumatic ( ) Unknown Was the CHF Present On Admission? Please check the appropriate box: ( x) Present on Admission ( ) Not Present On Admission ( ) Clinically undetermined MTDD
== END 2021-02-09 16:35 | DRG 291 ==
LOC: ED 14:50 → 2W 21:05 → SUATTDRO 21:05 → 2W 22:27

== ENCOUNTER 2021-02-25 19:27 | Inpatient (IN) ==
--- NOTE | 2021-02-25 20:44 | Emergency Department Note ---
Impression & Plan AMS (altered mental status) ED Provider Note INFORMANT: Patient ED PROVIDER(S): Bob Siu MD CHIEF COMPLAINT: Altered mental status PLAN: Disposition: Admitted Condition: Guarded Outpatient prescription management: none Referral: None patient presented because of deteriorating mental status. He did note having a MEDICAL DECISION MAKING: Headache intermittently but denied any chest pain or abdominal pain. Unfortunate because of his mental status a detailed history was limited. He had a negative head CT. His chest x-ray shows mild increased markings of the right base but no significant change from prior. His CBC and chemistry panel were unremarkable. Patient's urinalysis did not reveal any signs of infection. Covid testing was negative. The exact etiology of his declining mental status not obvious. He does not have a white count or fever. The patient is antic oagulated. His vital signs are stable. Further management and work-up in the hospital will be necessary. Consultation was with Dr. Brown of internal medicine. Patient was evaluated in the ER for further management. Triage Nursing notes reviewed and agree them. Additional history obtained from patient's . Vital Signs: reviewed and remarkable for hypertension. Differential diagnosis: Infection, hypoglycemia, electrolyte abnormalities, overdose, toxicologic, cardiac sources, intracerebral event, neurologic, trauma, as well as other pa thologies. Diagnostics interpreted by me: ECG: Twelve-lead ECG reveals atrial fibrillation with PVCs at 65 bpm. Anterior Q waves noted. Nonspecific ST-T wave abnormality laterally. No ST elevation. Cardiac Monitoring: Cardiac monitoring ordered by me: The patient was placed on continuous cardiac monitoring and observed. It revealed atrial fibrillation at 63 bpm. Imaging studies: Chest x-ray. Findings: A chest x-ray was performed and revealed no pneumothorax, effusion, infiltrate, pulmonary edema, free air under the diaphragm, or wide mediastinum. Increased interstitial markings noted in the right base but no change from prior. Impression: No acute disease. Head CT: A noncontrast CT scan of the head was performed and was negative for tumor, fracture, intracranial hemorrhage, or other acute pathology. HPI: The patient is a 80 year old male who presents to the Emergency [facility] from [facility] with his noting a decreased mental status. This started over the last several days and is worsening. The states when he was discharged from the hospital and at rehab he was able to walk and communicate relatively well. He has slowed become more fatigued and weak. The states that the patient did note a headache from time to time. There was no trauma reported. The patient is anticoagulated. He was in the hospital due to s hortness of breath and significant pleural effusion. The patient is on dialysis and has not missed any treatments. Patient denies any chest or abdominal pain. He does note the headaches as noted above. History is limited secondary to patient's mental status. ROS: See above HPI for pertinent positives & negatives. Limited secondary to mental status PAST MEDICAL HISTORY:See Below , end-stage renal disease, pleural effusion PAST SURGICAL HISTORY:See Below, dialysis catheter in the right chest FAMILY HISTORY:See Below SOCIAL HISTORY:See Below, HOME MEDICATIONS:See Below ALLERGIES:See Below VITALS:See Below PHYSICAL EXAMINATION: GENERAL: Sleepy, arousable, age appropriate -appearing, in no distress HENT: Normocephalic, atraumatic. Oropharynx unremarkable. EYES: Normal conjunctiva. Sclera non-icteric. NECK: Inspection normal. Non-tender. Supple. No nuchal rigidity. FROM. No masses. RESPIRATORY: Clear to auscultation. No wheezes. No rales. Normal respiratory effort. CARDIAC: Normal rate. Normal rhythm. No murmurs. No rubs. Extremities warm and well perfused. Pulses equal. No JVD. GI: Soft, non-distended. No tenderness to palpation. No rebound or guarding. No masses. RECTAL: Deferred. MUSCULOSKELETAL: Atraumatic. Chest examination reveals no tenderness. Dialysis catheter in the right upper chest. The back is symmetrical on inspection without obvious abnormality. There is no CVA tenderness to palpation. No joint edema. LOWER EXTREMITIES: Calves are equal size bilaterally and non-tender. No edema. No discoloration. NEURO: Altered sensorium. Speech mumbled. Patient moving arms and legs spontaneously. Having difficulty following commands. SKIN: No rash or jaundice noted. Bob Siu MD Past Med/Surg History Medical History (Updated 02/25/21 @ 20:40 by Bob Siu MD) Anemia Atrial fibrillation dx 08/2020 - on Eliquis -- follows with Dr. Madrigal Bright red rectal bleeding Cancer SKIN CANCER-BASAL CELL/SQUAMOUS CHF (congestive heart failure) CKD (chronic kidney disease) Stage 4 - Follows with Dr. Tereso Compression fracture Depression, major, recurrent, in remission Diarrhea Diverticular disease DM type 2 (diabetes mellitus, type 2) IDDM Hypertension Pancreatitis HX Pericardial effusion Pericardial effusion chronic Sclerosing cholangitis S/P liver transplant 1994 Secondary hyperparathyroidism of renal origin Sleep apnea BiPAP Vitamin D deficiency Surgical History (Updated 02/05/21 @ 13:37 by Monica Rasheed RN) Fusion of spine LUMBAR H/O exploratory laparotomy History of appendectomy History of cholecystectomy History of colonoscopy History of esophagogastroduodenoscopy (EGD) History of herniorrhaphy X 2 History of liver biopsy History of oral surgery Posts implanted in mandible for bottom denture History of tooth extraction S/P dialysis catheter insertion (02/05/21) Insertion of Tunneled Dialysis Catheter, Right Jugular Approach, Ultrasound Localization of Right Jugular Vein, Fluoroscopy for Positioning Dr. Dale 02/05/2021 Transplant LIVER 1994 [place] [facility] Family History Father Family history of diabetes mellitus Myocardial infarction Heart failure Mother Dementia Denies family history of Ovarian cancer Prostate cancer Breast cancer Colorectal cancer Social History Smoking Status: Unknown if ever smoked Tobacco Type: Cigarettes Cigarettes Per Day: QUIT 1971; Second Hand Exposure: No; Hx Alcohol Use: No Hx Substance Use: No Preferred Language: Luxembourgish Communication Ability: Effective Visual Impairment: Limited English Language Learner Tutor Required: No Beliefs That Will Affect Care: None marital status: Current Living Situation: Spouse current occupational status: retired Feels Safe at Home: Yes Dental Care, Regularly: Yes Seatbelt Use: always Sunscreen Use: Yes Assistive Devices: Walker Allergies Allergies Allergy/AdvReac Type Severity Reaction Status Date / Time aspirin AdvReac Unknown high doses Verified 02/25/21 22:11 contrindicated d/t hx liver transplant gabapentin AdvReac Unknown shakiness Verified 02/25/21 22:11 and impaired mobility ibuprofen AdvReac Unknown not to Verified 02/25/21 22:11 take due to transplant Home Meds Home Medications Medication Instructions Recorded Confirmed prednisone 5 mg PO QAM 01/09/19 02/25/21 ursodiol 300 mg PO BID 01/09/19 02/25/21 lidocaine 5 % topical patch 1 patch TOP DAILY PRN 08/10/19 02/25/21 polyethylene glycol 3350 17 gram 17 gm PO DAILY PRN 08/10/19 02/25/21 oral powder packet Tresiba FlexTouch U-100 10 unit SUBCUT QAM 11/21/20 02/25/21 donepezil 10 mg PO HS 11/21/20 02/25/21 dutasteride 0.5 mg PO DAILY 11/21/20 02/25/21 fludrocortisone 0.1 mg PO QPM 11/21/20 02/25/21 tacrolimus [Prograf] 2 mg PO BID 11/21/20 02/25/21 tamsulosin [Flomax] 0.4 mg PO QPM 11/21/20 02/25/21 acetaminophen [Tylenol Extra 500 mg PO Q8H MDD 2000MG 02/25/21 02/25/21 Strength] amlodipine 5 mg PO DAILY 02/25/21 02/25/21 bisacodyl 10 mg GA DAILY PRN 02/25/21 02/25/21 darbepoetin lino-albumin See Rx Instructions .ROUTE .COMPLEX 02/25/21 02/25/21 docusate sodium 100 mg PO BID 02/25/21 02/25/21 magnesium hydroxide [Milk Of 30 ml PO DAILY PRN 02/25/21 02/25/21 Magnesia Concentrated] melatonin 12 mg PO HS PRN 02/25/21 02/25/21 sennosides-docusate sodium 1 tab-cap PO .LUNCH PRN 02/25/21 02/25/21 [Senokot-S] venlafaxine 75 mg PO QAM 02/25/21 02/25/21 Previous Rx's Medication Instructions Recorded apixaban 2.5 mg tablet 2.5 mg PO BID #60 tab 08/21/20 meclizine 25 mg tablet 25 mg PO DAILY PRN #30 tab 10/09/20 metoprolol succinate 50 mg 100 mg PO BID #120 tab 01/01/21 tablet,extended release 24 hr cyanocobalamin (vitamin B-12) 1,000 mcg PO DAILY #30 cap 01/09/21 1,000 mcg capsule Results & Data (ED) Vital Signs Vital Signs - 24 hr 02/25/21 19:36 02/25/21 20:00 02/25/21 20:06 Temperature 36.2 C L Temperature Source Rectal Pulse Rate 65 57 L 68 Pulse Rate from SpO2 Sensor 66 Pulse Rhythm Irregular Pulse Strength Weak Respiratory Rate 17 7 L 12 Respiratory Effort / Characteristics Non-Labored Respiratory Depth Shallow Blood Pressure 152/84 H 164/84 H 164/84 H Blood Pressure Mean 106 110 110 Blood Pressure Position Semi-fowlers Pulse Oximetry 100 100 Oxygen Delivery Method Room Air Sepsis Recent Fever Within 48 Hours No Sepsis New/Unexplained Change in Mental Status Yes Sepsis Action Taken by Nursing No Action Required 02/25/21 20:30 02/25/21 20:33 02/25/21 21:30 Temperature Temperature Source Pulse Rate 63 64 Pulse Rate from SpO2 Sensor Pulse Rhythm Irregular Pulse Strength Respiratory Rate 9 L 18 Respiratory Effort / Characteristics Respiratory Depth Blood Pressure 145/84 H 146/108 H Blood Pressure Mean 104 120 Blood Pressure Position Pulse Oximetry 100 98 Oxygen Delivery Method Room Air Sepsis Recent Fever Within 48 Hours Sepsis New/Unexplained Change in Mental Status Sepsis Action Taken by Nursing 02/25/21 21:50 02/25/21 22:00 02/25/21 22:20 Temperature Temperature Source Pulse Rate 66 60 66 Pulse Rate from SpO2 Sensor 59 L 65 62 Pulse Rhythm Pulse Strength Respiratory Rate 11 L 9 L 16 Respiratory Effort / Characteristics Respiratory Depth Blood Pressure 155/83 H 168/100 H Blood Pressure Mean 107 122 Blood Pressure Position Pulse Oximetry 100 100 100 Oxygen Delivery Method Sepsis Recent Fever Within 48 Hours Sepsis New/Unexplained Change in Mental Status Sepsis Action Taken by Nursing 02/25/21 22:30 02/25/21 23:00 02/25/21 23:30 Temperature Temperature Source Pulse Rate 69 67 65 Pulse Rate from SpO2 Sensor 66 67 66 Pulse Rhythm Pulse Strength Respiratory Rate 16 6 L 4 L Respiratory Effort / Characteristics Respiratory Depth Blood Pressure 171/88 H 156/101 H 156/84 H Blood Pressure Mean 115 119 108 Blood Pressure Position Pulse Oximetry 100 100 100 Oxygen Delivery Method Sepsis Recent Fever Within 48 Hours Sepsis New/Unexplained Change in Mental Status Sepsis Action Taken by Nursing 02/26/21 00:00 Temperature Temperature Source Pulse Rate 63 Pulse Rate from SpO2 Sensor 62 Pulse Rhythm Pulse Strength Respiratory Rate 14 Respiratory Effort / Characteristics Respiratory Depth Blood Pressure 133/102 H Blood Pressure Mean 112 Blood Pressure Position Pulse Oximetry 100 Oxygen Delivery Method Sepsis Recent Fever Within 48 Hours Sepsis New/Unexplained Change in Mental Status Sepsis Action Taken by Nursing Laboratory Data Result diagrams: 02/25/21 19:50 02/25/21 19:50 Lab Results 02/25/21 02/25/21 02/25/21 Range/Units 19:50 19:50 19:50 WBC 5.17 (4.8-10.8) K/uL RBC 4.50 L (4.7-6.1) M/uL Hgb 13.1 L (14.0-18.0) g/dL Hct 40.8 L (42-52) % MCV 90.7 (80-100) fL MCH 29.1 (25-34) pg MCHC 32.1 (32-36) g/dL RDW Std Deviation 56.3 H (36.4-46.3) fL RDW Coeff of Penelope 17.1 H (11.5-14.5) % Plt Count 131 (130-400) K/uL MPV 10.1 (7.4-10.4) fL Immature Gran % (Auto) 0.4 % Neut % (Auto) 62.9 % Lymph % (Auto) 28.4 % Tillman % (Auto) 6.4 % Eos % (Auto) 1.7 % Baso % (Auto) 0.2 % Neut # (Auto) 3.25 (1.4-6.5) K/uL Lymph # (Auto) 1.47 (1.2-3.4) K/uL Tillman # (Auto) 0.33 (0.11-0.59) K/uL Eos # (Auto) 0.09 (0-0.5) K/uL Baso # (Auto) 0.01 (0-0.2) K/uL Immature Gran # (Auto) 0.02 (0.00-0.02) K/uL PT 11.1 (9.0-12.0) Seconds INR 1.1 (0.9-1.1) Sodium 135 L (136-145) mmol/L Potassium 4.3 (3.5-5.1) mmol/L Chloride 103 (98-107) mmol/L Carbon Dioxide 28 (21-32) mmol/L Anion Gap 4.0 (3-11) BUN 22 H (7-18) mg/dl Creatinine 2.78 H (0.6-1.4) mg/dl Est Cr Clr Drug Dosing 17.7 ml/min Est GFR ( Amer) 23.8 Est GFR (Non-Af Amer) 20.6 BUN/Creatinine Ratio 8.0 L (10-20) Glucose 175 H (70-99) mg/dl Lactate (0.4-2.0) mmol/L Calcium 11.2 H (8.5-10.1) mg/dl Magnesium 1.9 (1.8-2.4) mg/dl Total Bilirubin 0.4 (0.2-1) mg/dl AST 12 L (15-37) U/L ALT 14 (12-78) U/L Alkaline Phosphatase 104 (45-117) U/L Ammonia (11-32) umol/L Troponin I < 0.015 (0-0.045) ng/ml Total Protein 6.4 (6.4-8.2) gm/dl Albumin 3.0 L (3.4-5.0) gm/dl Globulin 3.4 (2.5-4.0) gm/dl Albumin/Globulin Ratio 0.9 (0.9-2) TSH 9.810 H (0.300-4.500) uIu/ml Free T4 1.22 (0.8-1.6) ng/dl Urine Color Urine Appearance (Clear) Urine pH (4.5-7.5) Ur Specific [place] (1.000-1.030) Urine Protein (Negative) Urine Glucose (UA) (Negative) Urine Ketones (Negative) Urine Blood (Negative) Urine Nitrite (Negative) Urine Bilirubin (Negative) Urine Urobilinogen (Negative) Ur Leukocyte Esterase (Negative) Urine WBC (Auto) (0-5) /hpf Urine RBC (Auto) (0-4) /hpf U Hyaline Cast (Auto) (0-5) /lpf U Epithel Cells (Auto) (0-5) /lpf Urine Bacteria (Auto) (Negative) Ur Renal Epithelial Cell Amorphous Sediment (None Prsent) COVID-19 Eval Order SARS-CoV-2 (PCR) (Negative) Influenza Type A (PCR) (Neg) Influenza Type B (PCR) (Neg) RSV (RT-PCR) (Neg) 02/25/21 02/25/21 02/25/21 Range/Units 21:03 21:03 22:29 WBC (4.8-10.8) K/uL RBC (4.7-6.1) M/uL Hgb (14.0-18.0) g/dL Hct (42-52) % MCV (80-100) fL MCH (25-34) pg MCHC (32-36) g/dL RDW Std Deviation (36.4-46.3) fL RDW Coeff of Penelope (11.5-14.5) % Plt Count (130-400) K/uL MPV (7.4-10.4) fL Immature Gran % (Auto) % Neut % (Auto) % Lymph % (Auto) % Tillman % (Auto) % Eos % (Auto) % Baso % (Auto) % Neut # (Auto) (1.4-6.5) K/uL Lymph # (Auto) (1.2-3.4) K/uL Tillman # (Auto) (0.11-0.59) K/uL Eos # (Auto) (0-0.5) K/uL Baso # (Auto) (0-0.2) K/uL Immature Gran # (Auto) (0.00-0.02) K/uL PT (9.0-12.0) Seconds INR (0.9-1.1) Sodium (136-145) mmol/L Potassium (3.5-5.1) mmol/L Chloride (98-107) mmol/L Carbon Dioxide (21-32) mmol/L Anion Gap (3-11) BUN (7-18) mg/dl Creatinine (0.6-1.4) mg/dl Est Cr Clr Drug Dosing ml/min Est GFR ( Amer) Est GFR (Non-Af Amer) BUN/Creatinine Ratio (10-20) Glucose (70-99) mg/dl Lactate 1.7 (0.4-2.0) mmol/L Calcium (8.5-10.1) mg/dl Magnesium (1.8-2.4) mg/dl Total Bilirubin (0.2-1) mg/dl AST (15-37) U/L ALT (12-78) U/L Alkaline Phosphatase (45-117) U/L Ammonia 11.8 (11-32) umol/L Troponin I (0-0.045) ng/ml Total Protein (6.4-8.2) gm/dl Albumin (3.4-5.0) gm/dl Globulin (2.5-4.0) gm/dl Albumin/Globulin Ratio (0.9-2) TSH (0.300-4.500) uIu/ml Free T4 (0.8-1.6) ng/dl Urine Color Urine Appearance (Clear) Urine pH (4.5-7.5) Ur Specific [place] (1.000-1.030) Urine Protein (Negative) Urine Glucose (UA) (Negative) Urine Ketones (Negative) Urine Blood (Negative) Urine Nitrite (Negative) Urine Bilirubin (Negative) Urine Urobilinogen (Negative) Ur Leukocyte Esterase (Negative) Urine WBC (Auto) (0-5) /hpf Urine RBC (Auto) (0-4) /hpf U Hyaline Cast (Auto) (0-5) /lpf U Epithel Cells (Auto) (0-5) /lpf Urine Bacteria (Auto) (Negative) Ur Renal Epithelial Cell Amorphous Sediment (None Prsent) COVID-19 Eval Order SARS-CoV-2 (PCR) (Negative) Influenza Type A (PCR) (Neg) Influenza Type B (PCR) (Neg) RSV (RT-PCR) (Neg) 02/25/21 02/25/21 02/25/21 Range/Units 22:44 22:44 22:44 WBC (4.8-10.8) K/uL RBC (4.7-6.1) M/uL Hgb (14.0-18.0) g/dL Hct (42-52) % MCV (80-100) fL MCH (25-34) pg MCHC (32-36) g/dL RDW Std Deviation (36.4-46.3) fL RDW Coeff of Penelope (11.5-14.5) % Plt Count (130-400) K/uL MPV (7.4-10.4) fL Immature Gran % (Auto) % Neut % (Auto) % Lymph % (Auto) % Tillman % (Auto) % Eos % (Auto) % Baso % (Auto) % Neut # (Auto) (1.4-6.5) K/uL Lymph # (Auto) (1.2-3.4) K/uL Tillman # (Auto) (0.11-0.59) K/uL Eos # (Auto) (0-0.5) K/uL Baso # (Auto) (0-0.2) K/uL Immature Gran # (Auto) (0.00-0.02) K/uL PT (9.0-12.0) Seconds INR (0.9-1.1) Sodium (136-145) mmol/L Potassium (3.5-5.1) mmol/L Chloride (98-107) mmol/L Carbon Dioxide (21-32) mmol/L Anion Gap (3-11) BUN (7-18) mg/dl Creatinine (0.6-1.4) mg/dl Est Cr Clr Drug Dosing ml/min Est GFR ( Amer) Est GFR (Non-Af Amer) BUN/Creatinine Ratio (10-20) Glucose (70-99) mg/dl Lactate (0.4-2.0) mmol/L Calcium (8.5-10.1) mg/dl Magnesium (1.8-2.4) mg/dl Total Bilirubin (0.2-1) mg/dl AST (15-37) U/L ALT (12-78) U/L Alkaline Phosphatase (45-117) U/L Ammonia (11-32) umol/L Troponin I (0-0.045) ng/ml Total Protein (6.4-8.2) gm/dl Albumin (3.4-5.0) gm/dl Globulin (2.5-4.0) gm/dl Albumin/Globulin Ratio (0.9-2) TSH (0.300-4.500) uIu/ml Free T4 (0.8-1.6) ng/dl Urine Color Dark Yellow Urine Appearance Cloudy A (Clear) Urine pH 5.0 (4.5-7.5) Ur Specific [place] 1.022 (1.000-1.030) Urine Protein 3+ H (Negative) Urine Glucose (UA) Negative (Negative) Urine Ketones Negative (Negative) Urine Blood Negative (Negative) Urine Nitrite Negative (Negative) Urine Bilirubin Negative (Negative) Urine Urobilinogen Negative (Negative) Ur Leukocyte Esterase Negative (Negative) Urine WBC (Auto) 1-5 (0-5) /hpf Urine RBC (Auto) 0-4 (0-4) /hpf U Hyaline Cast (Auto) 1-5 (0-5) /lpf U Epithel Cells (Auto) >30 H (0-5) /lpf Urine Bacteria (Auto) Negative (Negative) Ur Renal Epithelial Cell Not Reportable Amorphous Sediment Present A (None Prsent) COVID-19 Eval Order Cov[facility]sv at [facility] SARS-CoV-2 (PCR) NEGATIVE (Negative) Influenza Type A (PCR) Negative (Neg) Influenza Type B (PCR) Negative (Neg) RSV (RT-PCR) Negative (Neg) Discharge Plan Visit Data Chief Complaint: Altered Mental Status Stated Complaint: WEAKNESS, LETHARGIC, ED Provider: Bob Siu Discharge Problem: AMS (altered mental status) Prescriptions Prescriptions: No Action meclizine 25 mg tablet 25 mg PO DAILY PRN (Reason: VERTIGO) Qty: 30 RF: 5 metoprolol succinate 50 mg tablet extended release 24 hr 100 mg PO BID Qty: 120 RF: 5 lidocaine 5 % adhesive patch,medicated 1 patch TOP DAILY PRN (Reason: Pain) RF: 0 polyethylene glycol 3350 17 gram powder in packet 17 gm PO DAILY PRN (Reason: Constipation) RF: 0 cyanocobalamin (vitamin B-12) 1,000 mcg capsule 1,000 mcg PO DAILY Qty: 30 RF: 0 Eliquis 2.5 mg tablet 2.5 mg PO BID Qty: 60 RF: 5 tacrolimus [Prograf] 1 mg Capsule 2 mg PO BID RF: 0 donepezil 10 mg tablet 10 mg PO HS RF: 0 tamsulosin [Flomax] 0.4 mg capsule 0.4 mg PO QPM RF: 0 fludrocortisone 0.1 mg tablet 0.1 mg PO QPM RF: 0 dutasteride 0.5 mg capsule 0.5 mg PO DAILY RF: 0 Tresiba FlexTouch U-100 100 unit/mL (3 mL) insulin pen 10 unit subcut QAM RF: 0 prednisone 5 mg Tablet 5 mg PO QAM RF: 0 ursodiol 300 mg Capsule 300 mg PO BID RF: 0 docusate sodium 100 mg Capsule 100 mg PO BID RF: 0 magnesium hydroxide [Milk Of Magnesia Concentrated] 2,400 mg/10 mL Suspension 30 ml PO DAILY PRN (Reason: Constipation) RF: 0 bisacodyl 10 mg Suppository 10 mg GA DAILY PRN (Reason: Constipation) RF: 0 sennosides-docusate sodium [Senokot-S] 8.6-50 mg Tablet 1 tab-cap PO .LUNCH PRN (Reason: Constipation) RF: 0 darbepoetin lino-albumin 100 mcg/0.5 mL Syringe See Rx Instructions .ROUTE .COMPLEX RF: 0 venlafaxine 75 mg Capsule,Extended Release 24hr 75 mg PO QAM RF: 0 acetaminophen [Tylenol Extra Strength] 500 mg Tablet 500 mg PO Q8H MDD 2000MG RF: 0 amlodipine 5 mg Tablet 5 mg PO DAILY RF: 0 melatonin 3 mg Tablet 12 mg PO HS PRN (Reason: Sleep) RF: 0
[2021-02-25] MEDS ORDERED: SODIUM CHLORIDE 0.9% 1000ML 1,000 ML IV SCH (20:45)
[2021-02-25 20:48] LABS: Basophils # (auto) 0.01 K/uL (0-0.2); Basophils % (auto) 0.2 %; Eosinophils # (auto) 0.09 K/uL (0-0.5); Eosinophils % (auto) 1.7 %; Hematocrit (blood only) 40.8 % (42-52); Hemoglobin 13.1 g/dL (14.0-18.0); Immature Granulocytes # (auto) 0.02 K/uL (0.00-0.02); Immature Granulocytes % (auto) 0.4 %; Lymphocytes # (auto) 1.47 K/uL (1.2-3.4); Lymphocytes % (auto) 28.4 %; Mean Corpuscular Hemoglobin 29.1 pg (25-34); Mean Corpuscular Hgb Conc 32.1 g/dL (32-36); Mean Corpuscular Volume 90.7 fL (80-100); Mean Platelet Volume 10.1 fL (7.4-10.4); Monocytes # (auto) 0.33 K/uL (0.11-0.59); Monocytes % (auto) 6.4 %; Neutrophils # (auto) 3.25 K/uL (1.4-6.5); Neutrophils % (auto) 62.9 %; Platelet Count 131 K/uL (130-400); RDW Coefficient of Variation 17.1 % (11.5-14.5); RDW Standard Deviation 56.3 fL (36.4-46.3); White Blood Count 5.17 K/uL (4.8-10.8)
[2021-02-25 20:56] LABS: Alanine Aminotransferase 14 U/L (12-78); Aspartate Aminotransferase 12 U/L (15-37); Blood Urea Nitrogen 22 mg/dl (7-18); Calcium 11.2 mg/dl (8.5-10.1); Carbon Dioxide 28 mmol/L (21-32); Chloride 103 mmol/L (98-107); Creatinine Clr Calc Pharmacy 17.7 ml/min; Est GFR (African American) 23.8; Est GFR (Non-African American) 20.6; Glucose 175 mg/dl (70-99); Magnesium 1.9 mg/dl (1.8-2.4); Potassium 4.3 mmol/L (3.5-5.1); Sodium 135 mmol/L (136-145)
[2021-02-25 21:07] LABS: Albumin Globulin Ratio 0.9 (0.9-2); Alkaline Phosphatase 104 U/L (45-117); Bilirubin,Total 0.4 mg/dl (0.2-1); Globulin 3.4 gm/dl (2.5-4.0); Total Protein 6.4 gm/dl (6.4-8.2); Troponin I < 0.015 ng/ml (0-0.045)
[2021-02-25 21:08] LABS: INR 1.1 (0.9-1.1); Prothrombin Time 11.1 Seconds (9.0-12.0)
[2021-02-25 21:19] LABS: T4 Free Thyroxine 1.22 ng/dl (0.8-1.6)
[2021-02-25 23:22] LABS: Appearance Urine Cloudy (Clear); Bacteria Urine Automated Negative (Negative); Bilirubin Urine Negative (Negative); Blood Urine Negative (Negative); Color Urine Dark Yellow; Epithelial Cell Urine Auto >30 /lpf (0-5); Glucose Urine UA Negative (Negative); Ketones Urine Negative (Negative); Leukocyte Esterase Urine Negative (Negative); Nitrite Urine Negative (Negative); Protein Urine 3+ (Negative); RBC Urine Automated 0-4 /hpf (0-4); Specific Gravity Urine 1.022 (1.000-1.030); Urobilinogen Urine Negative (Negative)
[2021-02-25 23:50] LABS: Influenza A virus by PCR Negative (Neg); Influenza B virus by PCR Negative (Neg); RSV by PCR Negative (Neg); SARS CoV2 RNA(COVID-19) InHosp NEGATIVE (Negative)
[2021-02-25 23:54] LABS: Amorphous Sediment Urine Present (None Prsent)
--- NOTE | 2021-02-25 23:55 | History & Physical Report ---
Date of Service February 25, 2021 Assessment & Plan (1) AMS (altered mental status): 80yo male with multiple medical comorbidities, recent admission with PermCath placement and discharge to rehabilitation - progressive functional decline over the last 10 days per discussion with . Episode of visual hallucination - seeing spiders on reynoso and cats in room. Episodes possibly preceded by days of not using BiPAP machine. Suspect acute delirium - patient with underlying cognitive impairment, recent hospitalization with discharge to rehab. ?underlying cause being possible infection, need for BiPAP, medication effects. No obvious abnormalities on labs or imaging -Admit to medical -Frequent orientation and ambulation with assistance as needed -Check VBG in AM -Follow cultures Present on Admission?: Yes (2) ESRD (end stage renal disease) on dialysis: Chronic. Last HD performed yesterday. No need for acute dialysis at present -Nephrology consultation appreciated -Renal diet as tolerated Present on Admission?: Yes (3) Anemia: Chronic. Stable. Hgb=13.1 which is above average value (?hemoconcentration - patient given 1L NSS in ER). 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 Worsening cognitive function over the last 10 days reported by patient's - most likely secondary to acute metabolic encephalopathy -Continue Aricept Present on Admission?: Yes (7) Liver transplant status: Liver function seems to be intact. No overt evidence of hepatic failure -Continue Program 2mg po BID - states that patient is unable to tolerated generic formulation of this medication and requests that he take his own pills -Continue Prednisone 5mg po qAM -Continue Ursodiol 300mg po BID -Repeat LFTs in AM Present on Admission?: Yes (8) Type 2 diabetes mellitus: Chronic -Continue Insulin, ISS -Goal blood sugar 100 -140 Present on Admission?: Yes (9) PAF (paroxysmal atrial fibrillation): Chronic. Presently in SR. Rate of 67 -Continue Metoprolol -Continue Apixaban Present on Admission?: Yes (10) Hypertension: Chronic. Hypertensive at present -Continue Amlodipine -Continue Metoprolol -Continue to monitor F/E/N - Heplock. Monitor electrolytes and replete as needed. CC/ESRD diet. Continue home bowel regimen Ppx - Patient on Apixaban to continue Code - DNR/DNI Dispo - Admit to medical with telemetry Present on Admission?: Yes History of Present Illness Chief Complaint: illness Primary Care Provider: Jhonny Cobos DO Lawrence Herrera is an 80yo male presenting with functional decline. Patient had a tunneled HD catheter placed on 02/05/21. He was discharged to [facility] on 02/09/21. His states that he was doing fairly well at [facility] initially. He was ambulating and participating in Physical Therapy. reports that patient was not using his BiPAP for appx 7 days. Starting around 02/15/21 he began to become slightly confused and having hallucinations - seeing spiders on the reyn[place] and cats in the room. reports a progressive functional decline since appx 02/15/21 - patient is very lethargic, poor speech and difficulty ambulating. He is unable to complete PT and is extremely exhausted. He also has episodes where he doesn't recognize his of 56 years. No additional symptoms -no fever, dysuria, incontinence, vomiting, diarrhea reported from [facility]. No focal deficits. No CP/Palpitations/cough or SOB Allergies Allergy/AdvReac Type Severity Reaction Status Date / Time aspirin AdvReac Unknown high doses Verified 02/25/21 22:11 contrindicated d/t hx liver transplant gabapentin AdvReac Unknown shakiness Verified 02/25/21 22:11 and impaired mobility ibuprofen AdvReac Unknown not to Verified 02/25/21 22:11 take due to transplant Home Medications Medication Instructions Recorded Confirmed Type prednisone 5 mg PO QAM 01/09/19 02/25/21 History ursodiol 300 mg PO BID 01/09/19 02/25/21 History lidocaine 5 % topical patch 1 patch TOP DAILY PRN 08/10/19 02/25/21 History polyethylene glycol 3350 17 gram 17 gm PO DAILY PRN 08/10/19 02/25/21 History oral powder packet apixaban 2.5 mg tablet 2.5 mg PO BID #60 tab 08/21/20 02/25/21 Rx meclizine 25 mg tablet 25 mg PO DAILY PRN #30 tab 10/09/20 02/25/21 Rx Tresiba FlexTouch U-100 10 unit SUBCUT QAM 11/21/20 02/25/21 History donepezil 10 mg PO HS 11/21/20 02/25/21 History dutasteride 0.5 mg PO DAILY 11/21/20 02/25/21 History fludrocortisone 0.1 mg PO QPM 11/21/20 02/25/21 History tacrolimus [Prograf] 2 mg PO BID 11/21/20 02/25/21 History tamsulosin [Flomax] 0.4 mg PO QPM 11/21/20 02/25/21 History metoprolol succinate 50 mg 100 mg PO BID #120 tab 01/01/21 02/25/21 Rx tablet,extended release 24 hr cyanocobalamin (vitamin B-12) 1,000 mcg PO DAILY #30 cap 01/09/21 02/25/21 Rx 1,000 mcg capsule acetaminophen [Tylenol Extra 500 mg PO Q8H MDD 2000MG 02/25/21 02/25/21 History Strength] amlodipine 5 mg PO DAILY 02/25/21 02/25/21 History bisacodyl 10 mg MD DAILY PRN 02/25/21 02/25/21 History darbepoetin lino-albumin See Rx Instructions .ROUTE .COMPLEX 02/25/21 02/25/21 History docusate sodium 100 mg PO BID 02/25/21 02/25/21 History magnesium hydroxide [Milk Of 30 ml PO DAILY PRN 02/25/21 02/25/21 History Magnesia Concentrated] melatonin 12 mg PO HS PRN 02/25/21 02/25/21 History sennosides-docusate sodium 1 tab-cap PO .LUNCH PRN 02/25/21 02/25/21 History [Senokot-S] venlafaxine 75 mg PO QAM 02/25/21 02/25/21 History Past Med/Surg History Medical History (Updated 02/26/21 @ 02:44 by Lorena Brown DO) Anemia Atrial fibrillation dx 08/2020 - on Eliquis -- follows with Dr. Madrigal Bright red rectal bleeding Cancer SKIN CANCER-BASAL CELL/SQUAMOUS CHF (congestive heart failure) CKD (chronic kidney disease) Stage 4 - Follows with Dr. Rider Compression fracture Depression, major, recurrent, in remission Diarrhea Diverticular disease DM type 2 (diabetes mellitus, type 2) IDDM Hypertension Pancreatitis HX Pericardial effusion Pericardial effusion chronic Sclerosing cholangitis S/P liver transplant 1994 Secondary hyperparathyroidism of renal origin Sleep apnea BiPAP Vitamin D deficiency Surgical History (Updated 02/05/21 @ 13:37 by Monica Rasheed RN) Fusion of spine LUMBAR H/O exploratory laparotomy History of appendectomy History of cholecystectomy History of colonoscopy History of esophagogastroduodenoscopy (EGD) History of herniorrhaphy X 2 History of liver biopsy History of oral surgery Posts implanted in mandible for bottom denture History of tooth extraction S/P dialysis catheter insertion (02/05/21) Insertion of Tunneled Dialysis Catheter, Right Jugular Approach, Ultrasound Localization of Right Jugular Vein, Fluoroscopy for Positioning Dr. Dale 02/05/2021 Transplant LIVER 1994 [facility] [place] ([facility]) Family History Father Family history of diabetes mellitus Myocardial infarction Heart failure Mother Dementia Denies family history of Ovarian cancer Prostate cancer Breast cancer Colorectal cancer Social History Smoking Status: Former smoker Tobacco Type: Cigarettes Cigarettes Per Day: QUIT 1971; Second Hand Exposure: No; Do You Dip or Chew Tobacco: No; Hx Alcohol Use: No Hx Substance Use: No Preferred Language: Malay Communication Ability: Effective Communication Ability Comment: altered mental status Visual Impairment: Limited Physicist Nuclear Required: Yes and No Beliefs That Will Affect Care: None marital status: Current Living Situation: Rehab current occupational status: retired Other Information That Helps Us Care for You: No Feels Safe at Home: Yes Safety Concerns: Feels Safe At This Time Dental Care, Regularly: Yes Seatbelt Use: always Sunscreen Use: Yes Assistive Devices: Walker Review of Systems Review of Systems: All systems reviewed & are unremarkable except as noted in HPI & below Physical Exam Physical Exam: General: frail, elderly male patient resting comfortably, NAD, non-toxic in appearance, very hard of hearing Skin: warm, dry, intact, bruising of right chest and arm HEENT: NC/AT, PERRL, EOMI, anicteric sclera, conjunctiva without injection, external ear normal to inspection and nontender, nares patent, moist mucus membranes, dentition intact, no oropharyngeal lesions, neck supple, trachea midline, no LAD, no thyromegaly, no JVD Heart: +S1/S2, regular, 3/6 RAMÓN across precordium, right chest permcath present, nontender - no bleeding/drainage/erythema Lungs: equal air entry bilaterally, no rales/rhonchi/wheezes Abd: +BS, soft, NT/ND, no masses/organomegaly/ascites Ext: warm, 2+ pulses in UE/LE bilaterally, no clubbing/cyanosis or edema Neuro: nonfocal, speech intact, no facial droop, moving all extremities on command with equal strength 5/5 Results & Data Results & Data ([facility]) Vital Signs (Past 12 Hours) Vital Signs Temp Pulse Resp BP Pulse Ox 02/25/21 20:06 36.2 C L 68 12 164/84 H 100 Laboratory Results Lab Results 02/25/21 02/25/21 02/25/21 Range/Units 19:50 19:50 19:50 WBC 5.17 (4.8-10.8) K/uL RBC 4.50 L (4.7-6.1) M/uL Hgb 13.1 L (14.0-18.0) g/dL Hct 40.8 L (42-52) % MCV 90.7 (80-100) fL MCH 29.1 (25-34) pg MCHC 32.1 (32-36) g/dL RDW Std Deviation 56.3 H (36.4-46.3) fL RDW Coeff of Penelope 17.1 H (11.5-14.5) % Plt Count 131 (130-400) K/uL MPV 10.1 (7.4-10.4) fL Immature Gran % (Auto) 0.4 % Neut % (Auto) 62.9 % Lymph % (Auto) 28.4 % [place] % (Auto) 6.4 % Eos % (Auto) 1.7 % Baso % (Auto) 0.2 % Neut # (Auto) 3.25 (1.4-6.5) K/uL Lymph # (Auto) 1.47 (1.2-3.4) K/uL [place] # (Auto) 0.33 (0.11-0.59) K/uL Eos # (Auto) 0.09 (0-0.5) K/uL Baso # (Auto) 0.01 (0-0.2) K/uL Immature Gran # (Auto) 0.02 (0.00-0.02) K/uL PT 11.1 (9.0-12.0) Seconds INR 1.1 (0.9-1.1) Sodium 135 L (136-145) mmol/L Potassium 4.3 (3.5-5.1) mmol/L Chloride 103 (98-107) mmol/L Carbon Dioxide 28 (21-32) mmol/L Anion Gap 4.0 (3-11) BUN 22 H (7-18) mg/dl Creatinine 2.78 H (0.6-1.4) mg/dl Est Cr Clr Drug Dosing 17.7 ml/min Est GFR ( Amer) 23.8 Est GFR (Non-Af Amer) 20.6 BUN/Creatinine Ratio 8.0 L (10-20) Glucose 175 H (70-99) mg/dl Lactate (0.4-2.0) mmol/L Calcium 11.2 H (8.5-10.1) mg/dl Phosphorus 2.8 (2.5-4.9) mg/dl Magnesium 1.9 (1.8-2.4) mg/dl Total Bilirubin 0.4 (0.2-1) mg/dl AST 12 L (15-37) U/L ALT 14 (12-78) U/L Alkaline Phosphatase 104 (45-117) U/L Ammonia (11-32) umol/L Troponin I < 0.015 (0-0.045) ng/ml Total Protein 6.4 (6.4-8.2) gm/dl Albumin 3.0 L (3.4-5.0) gm/dl Globulin 3.4 (2.5-4.0) gm/dl Albumin/Globulin Ratio 0.9 (0.9-2) TSH 9.810 H (0.300-4.500) uIu/ml Free T4 1.22 (0.8-1.6) ng/dl Urine Color Urine Appearance (Clear) Urine pH (4.5-7.5) Ur Specific [place] (1.000-1.030) Urine Protein (Negative) Urine Glucose (UA) (Negative) Urine Ketones (Negative) Urine Blood (Negative) Urine Nitrite (Negative) Urine Bilirubin (Negative) Urine Urobilinogen (Negative) Ur Leukocyte Esterase (Negative) Urine WBC (Auto) (0-5) /hpf Urine RBC (Auto) (0-4) /hpf U Hyaline Cast (Auto) (0-5) /lpf U Epithel Cells (Auto) (0-5) /lpf Urine Bacteria (Auto) (Negative) Ur Renal Epithelial Cell Amorphous Sediment (None Prsent) COVID-19 Eval Order SARS-CoV-2 (PCR) (Negative) Influenza Type A (PCR) (Neg) Influenza Type B (PCR) (Neg) RSV (RT-PCR) (Neg) 02/25/21 02/25/21 02/25/21 Range/Units 21:03 21:03 22:29 WBC (4.8-10.8) K/uL RBC (4.7-6.1) M/uL Hgb (14.0-18.0) g/dL Hct (42-52) % MCV (80-100) fL MCH (25-34) pg MCHC (32-36) g/dL RDW Std Deviation (36.4-46.3) fL RDW Coeff of Penelope (11.5-14.5) % Plt Count (130-400) K/uL MPV (7.4-10.4) fL Immature Gran % (Auto) % Neut % (Auto) % Lymph % (Auto) % [place] % (Auto) % Eos % (Auto) % Baso % (Auto) % Neut # (Auto) (1.4-6.5) K/uL Lymph # (Auto) (1.2-3.4) K/uL [place] # (Auto) (0.11-0.59) K/uL Eos # (Auto) (0-0.5) K/uL Baso # (Auto) (0-0.2) K/uL Immature Gran # (Auto) (0.00-0.02) K/uL PT (9.0-12.0) Seconds INR (0.9-1.1) Sodium (136-145) mmol/L Potassium (3.5-5.1) mmol/L Chloride (98-107) mmol/L Carbon Dioxide (21-32) mmol/L Anion Gap (3-11) BUN (7-18) mg/dl Creatinine (0.6-1.4) mg/dl Est Cr Clr Drug Dosing ml/min Est GFR ( Amer) Est GFR (Non-Af Amer) BUN/Creatinine Ratio (10-20) Glucose (70-99) mg/dl Lactate 1.7 (0.4-2.0) mmol/L Calcium (8.5-10.1) mg/dl Phosphorus (2.5-4.9) mg/dl Magnesium (1.8-2.4) mg/dl Total Bilirubin (0.2-1) mg/dl AST (15-37) U/L ALT (12-78) U/L Alkaline Phosphatase (45-117) U/L Ammonia 11.8 (11-32) umol/L Troponin I (0-0.045) ng/ml Total Protein (6.4-8.2) gm/dl Albumin (3.4-5.0) gm/dl Globulin (2.5-4.0) gm/dl Albumin/Globulin Ratio (0.9-2) TSH (0.300-4.500) uIu/ml Free T4 (0.8-1.6) ng/dl Urine Color Urine Appearance (Clear) Urine pH (4.5-7.5) Ur Specific [place] (1.000-1.030) Urine Protein (Negative) Urine Glucose (UA) (Negative) Urine Ketones (Negative) Urine Blood (Negative) Urine Nitrite (Negative) Urine Bilirubin (Negative) Urine Urobilinogen (Negative) Ur Leukocyte Esterase (Negative) Urine WBC (Auto) (0-5) /hpf Urine RBC (Auto) (0-4) /hpf U Hyaline Cast (Auto) (0-5) /lpf U Epithel Cells (Auto) (0-5) /lpf Urine Bacteria (Auto) (Negative) Ur Renal Epithelial Cell Amorphous Sediment (None Prsent) COVID-19 Eval Order SARS-CoV-2 (PCR) (Negative) Influenza Type A (PCR) (Neg) Influenza Type B (PCR) (Neg) RSV (RT-PCR) (Neg) 02/25/21 02/25/21 02/25/21 Range/Units 22:44 22:44 22:44 WBC (4.8-10.8) K/uL RBC (4.7-6.1) M/uL Hgb (14.0-18.0) g/dL Hct (42-52) % MCV (80-100) fL MCH (25-34) pg MCHC (32-36) g/dL RDW Std Deviation (36.4-46.3) fL RDW Coeff of Penelope (11.5-14.5) % Plt Count (130-400) K/uL MPV (7.4-10.4) fL Immature Gran % (Auto) % Neut % (Auto) % Lymph % (Auto) % [place] % (Auto) % Eos % (Auto) % Baso % (Auto) % Neut # (Auto) (1.4-6.5) K/uL Lymph # (Auto) (1.2-3.4) K/uL [place] # (Auto) (0.11-0.59) K/uL Eos # (Auto) (0-0.5) K/uL Baso # (Auto) (0-0.2) K/uL Immature Gran # (Auto) (0.00-0.02) K/uL PT (9.0-12.0) Seconds INR (0.9-1.1) Sodium (136-145) mmol/L Potassium (3.5-5.1) mmol/L Chloride (98-107) mmol/L Carbon Dioxide (21-32) mmol/L Anion Gap (3-11) BUN (7-18) mg/dl Creatinine (0.6-1.4) mg/dl Est Cr Clr Drug Dosing ml/min Est GFR ( Amer) Est GFR (Non-Af Amer) BUN/Creatinine Ratio (10-20) Glucose (70-99) mg/dl Lactate (0.4-2.0) mmol/L Calcium (8.5-10.1) mg/dl Phosphorus (2.5-4.9) mg/dl Magnesium (1.8-2.4) mg/dl Total Bilirubin (0.2-1) mg/dl AST (15-37) U/L ALT (12-78) U/L Alkaline Phosphatase (45-117) U/L Ammonia (11-32) umol/L Troponin I (0-0.045) ng/ml Total Protein (6.4-8.2) gm/dl Albumin (3.4-5.0) gm/dl Globulin (2.5-4.0) gm/dl Albumin/Globulin Ratio (0.9-2) TSH (0.300-4.500) uIu/ml Free T4 (0.8-1.6) ng/dl Urine Color Dark Yellow Urine Appearance Cloudy A (Clear) Urine pH 5.0 (4.5-7.5) Ur Specific [place] 1.022 (1.000-1.030) Urine Protein 3+ H (Negative) Urine Glucose (UA) Negative (Negative) Urine Ketones Negative (Negative) Urine Blood Negative (Negative) Urine Nitrite Negative (Negative) Urine Bilirubin Negative (Negative) Urine Urobilinogen Negative (Negative) Ur Leukocyte Esterase Negative (Negative) Urine WBC (Auto) 1-5 (0-5) /hpf Urine RBC (Auto) 0-4 (0-4) /hpf U Hyaline Cast (Auto) 1-5 (0-5) /lpf U Epithel Cells (Auto) >30 H (0-5) /lpf Urine Bacteria (Auto) Negative (Negative) Ur Renal Epithelial Cell Not Reportable Amorphous Sediment Present A (None Prsent) COVID-19 Eval Order CovFluRsv at [facility] SARS-CoV-2 (PCR) NEGATIVE (Negative) Influenza Type A (PCR) Negative (Neg) Influenza Type B (PCR) Negative (Neg) RSV (RT-PCR) Negative (Neg) Diagnostic Findings CT Head - per STAT rad: Involutional and chronic small vessel ischemic changes. No ICH, mass-effect or edema. No skull fracture. Sinuses and mastoid air cells are clear. CXR - by my interpretation - interval placement of right chest perm cath, calcified aortic knob, no PNA, improved pleural effusions PG Care Time/CCT Total # of Minutes Spent Total Time Spent with Patient: Total time spent is greater than 50% in coordination of care (as documented) at patient's floor/unit and/or counseling patient: Coding Level of Care Code 34293 Initial Inpt Care Lvl 3 Diagnoses AMS (altered mental status) R41.82 Altered mental status type: unspecified ESRD (end stage renal disease) on dialysis N18.6; Z99.2 Anemia N18.6; D63.1; Z99.2 Anemia type: due to chronic kidney disease Chronic kidney disease stage: on chronic dialysis Obstructive sleep apnea G47.33 BPH with obstruction/lower urinary tract symptoms N40.1; N13.8 Memory impairment R41.3 Liver transplant status Z94.4 Type 2 diabetes mellitus E11.22; N18.4; Z79.4 Diabetes mellitus roasterman insulin use: with roasterman use Diabetes mellitus complication status: with kidney complications Diabetes mellitus complication detail: with chronic kidney disease Chronic kidney disease stage: stage 4 (severe) PAF (paroxysmal atrial fibrillation) I48.0 Hypertension I10 Hypertension type: unspecified (1) AMS (altered mental status) Altered mental status type: unspecified Qualified Code(s): R41.82 - Altered mental status, unspecified (2) Anemia Anemia type: due to chronic kidney disease Chronic kidney disease stage: on chronic dialysis Qualified Code(s): N18.6 - End stage renal disease; D63.1 - Anemia in chronic kidney disease; Z99.2 - Dependence on renal dialysis (3) Type 2 diabetes mellitus Diabetes mellitus fpc insulin use: with fpc use Diabetes mellitus complication status: with kidney complications Diabetes mellitus complication detail: with chronic kidney disease Chronic kidney disease stage: stage 4 (severe) Qualified Code(s): E11.22 - Type 2 diabetes mellitus with diabetic chronic kidney disease; N18.4 - Chronic kidney disease, stage 4 (severe); Z79.4 - group home (current) use of insulin (4) Hypertension Hypertension type: unspecified Qualified Code(s): I10 - Essential (primary) hypertension
[2021-02-26] MEDS ORDERED: GLUCAGON FOR INJ 1 MG VIAL SQ PRN (01:18)
[2021-02-26] MEDS ORDERED: GLUCOSE 40% GEL 15 GM TUBE PO PRN (01:18)
[2021-02-26] MEDS ORDERED: POLYETHYLENE (MIRALAX) 17 GM PACK PO PRN (01:18)
[2021-02-26] MEDS ORDERED: LIDOCAINE 5% 1 PATCH TD PRN (01:18)
[2021-02-26] MEDS ORDERED: GLUCOSE 10 TABS/TUBE PO PRN (01:18)
[2021-02-26] MEDS ORDERED: DEXTROSE 50% 50 ML SYRINGE IV PRN (01:18)
[2021-02-26] MEDS ORDERED: DOCUSATE SODIUM/SENNA 50/8.6MG TAB PO PRN (01:18)
[2021-02-26] MEDS ORDERED: MELATONIN 3 MG TAB PO PRN (01:18)
[2021-02-26] MEDS ORDERED: ACETAMINOPHEN HOME PACK 500 MG TABLET PO SCH (01:18)
[2021-02-26] MEDS ORDERED: MAGNESIUM HYDROXIDE SUSP 30 ML UDC PO PRN (01:18)
[2021-02-26] MEDS ORDERED: bisacodyL 10 MG SUPP PR PRN (01:18)
[2021-02-26] MEDS ORDERED: CARBOHYDRATES FOR HYPOGLYCEMIA PO PRN (01:18)
[2021-02-26 01:37] LABS: Phosphorus 2.8 mg/dl (2.5-4.9)
[2021-02-26 07:10] LABS: Base Excess VBG 1.3 mEq/L; HCO3 VBG 28 mmol/L; PCO2 VBG 54 mmHg (38-50); PO2 VBG 30 mmHg; pH VBG 7.33 (7.36-7.41)
[2021-02-26 07:11] LABS: Oxygen Saturation VBG < 60.0 %
--- NOTE | 2021-02-26 07:43 | CT Scan Report ---
CT OF THE HEAD WITHOUT CONTRAST CLINICAL HISTORY: Altered mental status. COMPARISON STUDY: Head CT January 31, 2021. MRI of the brain February 01, 2021. CT DOSE: 614.27 mGy.cm TECHNIQUE: Helical axial images of the head were obtained without IV contrast. Automated exposure con trol was utilized for the study. A dose lowering technique was utilized adhering to the principles o f ALARA. FINDINGS: No acute intracranial hemorrhage, midline shift or mass effect is present. The ventricular system is unremarkable. No change in appearance of the brain. White matter hypodensities are unchange d and suggest small vessel disease. The basal cisterns are patent. No extra-axial collections are pre sent. There are no findings to suggest acute dural sinus thrombosis or acute territorial infarct. No significant calvarial abnormalities are present. IMPRESSION: No acute intracranial findings. ACT 112: Negative or not required by law. Electronically signed by: Andrea Ramirez M.D. 02/26/2021 7:42 AM
--- NOTE | 2021-02-26 07:45 | XRay Report ---
XR chest 1V portable CLINICAL HISTORY: weakness COMPARISON STUDY: Chest CT January 28, 2021. Chest radiograph February 05, 2021. FINDINGS: Dual lumen right internal jugular central line remains in place. There is no pneumothorax. Bilateral pleural effusions and bibasilar opacities have improved since exam of February 05, 2021. Cardio megaly is unchanged. There is no evidence for pulmonary edema. IMPRESSION: 1. Interval improvement in bilateral pleural effusions and bibasilar opacities. 2. No evidence for pulmonary edema. ACT 112: Negative or not required by law. Electronically signed by: Andrea Ramirez M.D. 02/26/2021 7:44 AM
--- NOTE | 2021-02-26 07:50 | Hospitalist Progress Note ---
Date of Service February 26, 2021 Assessment & Plan (1) AMS (altered mental status): #AMS (altered mental status): 80yo male with multiple medical comorbidities, recent admission with PermCath placement and discharge to rehabilitation - progressive functional decline over the last 10 days per discussion with . Episode of visual hallucination - seeing spiders on reynoso and cats in room. Episodes possibly preceded by days of not using BiPAP machine. Suspect acute delirium - patient with underlying cognitive impairment, recent hospitalization with discharge to rehab. There is limited indications of an underlying infection, he is VBG indicates 54 which appears to be his baseline, his medication regimen has not changed significantly, and ct is negative. Unfortunately I am concerned the patient is progressing towards terminal deconditioning given that he is unable to participate in therapy and his mental status is worsening. Will consult palliative for goals of care -Admit to medical -Frequent orientation and ambulation with assistance as needed -VBG this a.m. demonstrated PCO2 of 54, similar to previous readings obtained in 2019 and 2020 -Follow cultures -consult palliative for goals of care #Goals of Care Consult palliative see above #ESRD (end stage renal disease) on dialysis: Chronic. Last HD performed yesterday. No need for acute dialysis at present -Nephrology consulted following recs -defer exchanging HD catheter until goals of care are more clear -HD tomorrow -IV depleted D5 1/2 nss@ 80 -Renal diet as tolerated #Anemia: Chronic. Stable. On admission Hgb=13.1 which is above average value (?hemoconcentration - patient given 1L NSS in ER). On Aranesp as outpatient -Continue to monitor -trend cbc #dysphagia Previously evaluated on prior admissions, unable to participate in therapy as an outpatient. Goals of care need to be clarified. 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 Worsening cognitive function over the last 10 days reported by patient's - most likely secondary to acute metabolic encephalopathy -Continue Aricept #Liver transplant status: Liver function seems to be intact. No overt evidence of hepatic failure -Continue Program 2mg po BID - states that patient is unable to tolerated generic formulation of this medication and requests that he take his own pills -Continue Prednisone 5mg po qAM -Continue Ursodiol 300mg po BID -Repeat LFTs in AM # Type 2 diabetes mellitus: Chronic -Holding Lantus, cover with SSI -Goal blood sugar 100-1 40 #PAF (paroxysmal atrial fibrillation): Chronic. Presently in SR. Rate of 67 -Continue Metoprolol -Continue Apixaban # Hypertension: Chronic. Hypertensive at present -Continue Amlodipine -Continue Metoprolol -Continue to monitor FENa:Heplock. Monitor electrolytes and replete as needed. CC/ESRD diet. Continue home bowel regimen Code Status: DNR/DNI DVT PPX:Patient on Apixaban to continue PT/OT: Ordered Dispo: Med telemetry Partha Brown MD PGY 2, FCM This chart was completed utilizing [employer] dictation voice recognition software. Grammatical errors, random word insertions, pronoun errors, and in complete sentences are an occasional consequence of the system. Any questions or concerns about the content, text, or information contained within the body of this dictation should be addressed directly to the physician for clarification. (2) ESRD (end stage renal disease) on dialysis: (3) Anemia: (4) Obstructive sleep apnea: (5) BPH with obstruction/lower urinary tract symptoms: (6) Memory impairment: (7) Liver transplant status: (8) Type 2 diabetes mellitus: (9) PAF (paroxysmal atrial fibrillation): (10) Hypertension: Admission and Anticipated Discharge Date Admission Date: February 25, 2021 Supervising Physician Co-Signing Physician Notes Attending attestation Pt seen and examined in concert with Dr. Brown. In agreement with the documented findings as noted in the resident documentation with any exceptions or additions as noted here. Resting comfortably in bed. Able to interact but unable to wei useful history 2/2 being tangential. Wearing BIPAP while napping. On examination, S1/S2 nl RRR no MCG. CTAB. Abd NT/ND BS+ve, difficult CN examination 2/2 patient tangentiality Delirium in the setting of dementia, dialysis without fever - goals of care conversation through previous relationship with palliative care. VBG has been stable at 54, mental status as noted above. Follow up cultures but no sign of active infection presently. Strongly encourage BIPAP use for JANES ESRD on HD - nephrology consultation - MWF Chronic anemia, likely chronic disease 2/2 ESRD - trend CBC Dysphagia - previous sleep evaluation as noted, will temporarily defer RUBBER TIRE CURER evaluation (with NPO) until goals of care discussion clarifies course s/p liver transplant - continue present medication, LFT in AM Else see resident documentation as noted. Subjective *Unable to obtain history secondary to patient's mental status* Patient unable to produce dissipate the interview, did not indicate that he was in acute pain, not oriented to person place or time. No acute concerns per nursing. Physical Exam Physical Exam: General: Lying in bed not in acute distress HEENT: Normocephalic atraumatic Neck: Normal to visual inspection Cardiac: Regular rate and rhythm I did not appreciate significant murmurs rubs or gallops, normal S1, normal S2, negative pedal edema Respiratory: Clear to auscultation bilaterally with symmetrical chest expansion, wearing BiPAP GI: Soft, nontender, nondistended Neuro: AAO x0 Psych: Calm and cooperative Results & Data Results & Data ([facility]) Vital Signs (Past 12 Hours) Vital Signs Temp Pulse Pulse Pulse Resp BP BP 02/26/21 02:54 36.3 C L 71 18 172/94 H 02/26/21 02:04 67 02/26/21 00:34 36.5 C 66 18 186/80 H 02/26/21 00:00 63 14 133/102 H 02/25/21 23:30 65 4 L 156/84 H 02/25/21 23:00 67 6 L 156/101 H 02/25/21 22:30 69 16 171/88 H 02/25/21 22:20 66 16 02/25/21 22:00 60 9 L 168/100 H 02/25/21 21:50 66 11 L 155/83 H 02/25/21 21:30 146/108 H 02/25/21 20:33 64 18 02/25/21 20:30 63 9 L 145/84 H 02/25/21 20:06 36.2 C L 68 12 164/84 H 02/25/21 20:00 57 L 7 L 164/84 H Pulse Ox 02/26/21 02:54 98 02/26/21 02:04 02/26/21 00:34 94 02/26/21 00:00 100 02/25/21 23:30 100 02/25/21 23:00 100 02/25/21 22:30 100 02/25/21 22:20 100 02/25/21 22:00 100 02/25/21 21:50 100 02/25/21 21:30 02/25/21 20:33 98 02/25/21 20:30 100 02/25/21 20:06 100 02/25/21 20:00 100 Resident Activity Tracking Resident Involvement: Resident Care Provided Care Provided: Adult [facility] Medicine (1) Type 2 diabetes mellitus Chronic kidney disease stage: stage 4 (severe) Diabetes mellitus complication detail: with chronic kidney disease Diabetes mellitus complication status: with kidney complications Diabetes mellitus prison insulin use: with rat exterminator use Qualified Code(s): E11.22 - Type 2 diabetes mellitus with diabetic chronic kidney disease; N18.4 - Chronic kidney disease, stage 4 (severe); Z79.4 - terminal make up operator (current) use of insulin (2) Anemia Anemia type: due to chronic kidney disease Chronic kidney disease stage: on chronic dialysis Qualified Code(s): N18.6 - End stage renal disease; D63.1 - Anemia in chronic kidney disease; Z99.2 - Dependence on renal dialysis (3) AMS (altered mental status) Altered mental status type: unspecified Qualified Code(s): R41.82 - Altered mental status, unspecified (4) Hypertension Hypertension type: unspecified Qualified Code(s): I10 - Essential (primary) hypertension
[2021-02-26] MEDS: APIXABAN 2.5 MG TAB PO SCH ×2 (09:31→20:25)
[2021-02-26] MEDS: predniSONE 5 MG TAB PO SCH (09:31)
[2021-02-26] MEDS: ursodioL 300 MG CAP PO SCH ×2 (09:31→20:26)
[2021-02-26] MEDS: TACROLIMUS 1 MG CAP PO SCH ×2 (09:31→20:26)
[2021-02-26] MEDS: VENLAFAXINE HCL XR 75 MG CAPXR PO SCH (09:31)
[2021-02-26] MEDS: amLODIPine BESYLATE 5 MG TAB PO SCH (09:31)
[2021-02-26] MEDS: DOCUSATE SODIUM 100 MG CAP PO SCH ×2 (09:31→20:26)
[2021-02-26] MEDS: METOPROLOL SUCC 50MG EXT REL TAB PO SCH ×2 (09:31→20:26)
--- NOTE | 2021-02-26 09:39 | Nephrology Consultation ---
Date of Consultation February 26, 2021 Assessment & Plan (1) AMS (altered mental status): Complicated by underlying dementia and multiple medical comorbidities. No obvious acute etiology. CT negative. (2) ESRD (end stage renal disease) on dialysis: No role for emergent HD today. Prognosis guarded. Prognosis guarded. Will defer exchanging HD catheter until goals of care are more clear. Anticipate next HD tomorrow. BP and volume status acceptable. Intravascularly depleted. D5 1/2NS @ 80 ml/hr started. Medications appropriate for kidney dysfunction. (3) Anemia: (4) Liver transplant status: Maintained on prograf and prednisone. (5) Hypertension: BP acceptable. Continue amlodipine and metoprolol as Rx. (6) Hypercalcemia: Acute on chronic. Evidence of primary hyperparathyroidism in the past. Immobility acceptable. IVF to encourage negative output. History of Present Illness Reason for Consultation: ESRD Requesting Physician: Juan David Figueroa MD Attending Physician: Juan David Figueroa MD History of Present Illness Lawrence is an 80-year-old male with ESRD. He started hemodialysis during an admission to [facility] last month. Lawrence was then discharged to [facility] for rehab. He has been maintained on a MWF HD schedule via a RI TDC. The catheter has provided poor but adequate blood flow. Dialysis has been otherwise without complications. Unfortunately, Lawrence continues to decline. He has had progressive weakness and mental status changes. I spoke to his , Dhara yesterday. Lawrence was seen and evaluated on HD yesterday by Dr. Robin. Lawrence was then transferred to [facility] ER for evaluation of mental status changes. No evidence of infection identified. Metabolic evaluation notable for mildly increased TSH. CXR demonstrates improving BL pleural effusions. Lawrence has been lethargic on BIPAP since admission. He was seen and evaluated in his hospital room this AM. He recognized me and was oriented to place but otherwise confused. He is NPO having failed a swallow evaluation. Appetite has been poor by report. Also per report, Lawrence was out of bed ambulating at rehab yesterday. Allergies Allergy/AdvReac Type Severity Reaction Status Date / Time aspirin AdvReac Unknown high doses Verified 02/25/21 22:11 contrindicated d/t hx liver transplant gabapentin AdvReac Unknown shakiness Verified 02/25/21 22:11 and impaired mobility ibuprofen AdvReac Unknown not to Verified 02/25/21 22:11 take due to transplant Home Medications Medication Instructions Recorded Confirmed Type prednisone 5 mg PO QAM 01/09/19 02/25/21 History ursodiol 300 mg PO BID 01/09/19 02/25/21 History lidocaine 5 % topical patch 1 patch TOP DAILY PRN 08/10/19 02/25/21 History polyethylene glycol 3350 17 gram 17 gm PO DAILY PRN 08/10/19 02/25/21 History oral powder packet apixaban 2.5 mg tablet 2.5 mg PO BID #60 tab 08/21/20 02/25/21 Rx meclizine 25 mg tablet 25 mg PO DAILY PRN #30 tab 10/09/20 02/25/21 Rx Tresiba FlexTouch U-100 10 unit SUBCUT QAM 11/21/20 02/25/21 History donepezil 10 mg PO HS 11/21/20 02/25/21 History dutasteride 0.5 mg PO DAILY 11/21/20 02/25/21 History fludrocortisone 0.1 mg PO QPM 11/21/20 02/25/21 History tacrolimus [Prograf] 2 mg PO BID 11/21/20 02/25/21 History tamsulosin [Flomax] 0.4 mg PO QPM 11/21/20 02/25/21 History metoprolol succinate 50 mg 100 mg PO BID #120 tab 01/01/21 02/25/21 Rx tablet,extended release 24 hr cyanocobalamin (vitamin B-12) 1,000 mcg PO DAILY #30 cap 01/09/21 02/25/21 Rx 1,000 mcg capsule acetaminophen [Tylenol Extra 500 mg PO Q8H MDD 2000MG 02/25/21 02/25/21 History Strength] amlodipine 5 mg PO DAILY 02/25/21 02/25/21 History bisacodyl 10 mg TN DAILY PRN 02/25/21 02/25/21 History darbepoetin lino-albumin See Rx Instructions .ROUTE .COMPLEX 02/25/21 02/25/21 History docusate sodium 100 mg PO BID 02/25/21 02/25/21 History magnesium hydroxide [Milk Of 30 ml PO DAILY PRN 02/25/21 02/25/21 History Magnesia Concentrated] melatonin 12 mg PO HS PRN 02/25/21 02/25/21 History sennosides-docusate sodium 1 tab-cap PO .LUNCH PRN 02/25/21 02/25/21 History [Senokot-S] venlafaxine 75 mg PO QAM 02/25/21 02/25/21 History Patient History Medical History Anemia Atrial fibrillation dx 08/2020 - on Eliquis -- follows with Dr. Madrigal Bright red rectal bleeding Cancer SKIN CANCER-BASAL CELL/SQUAMOUS CHF (congestive heart failure) CKD (chronic kidney disease) Stage 4 - Follows with Dr. Rider Compression fracture Depression, major, recurrent, in remission Diarrhea Diverticular disease DM type 2 (diabetes mellitus, type 2) IDDM Hypertension Pancreatitis HX Pericardial effusion Pericardial effusion chronic Sclerosing cholangitis S/P liver transplant 1994 Secondary hyperparathyroidism of renal origin Sleep apnea BiPAP Vitamin D deficiency Surgical History Fusion of spine LUMBAR H/O exploratory laparotomy History of appendectomy History of cholecystectomy History of colonoscopy History of esophagogastroduodenoscopy (EGD) History of herniorrhaphy X 2 History of liver biopsy History of oral surgery Posts implanted in mandible for bottom denture History of tooth extraction S/P dialysis catheter insertion (02/05/21) Insertion of Tunneled Dialysis Catheter, Right Jugular Approach, Ultrasound Localization of Right Jugular Vein, Fluoroscopy for Positioning Dr. Dale 02/05/2021 Transplant LIVER 1994 IN [place] ([facility]) Family History Father Family history of diabetes mellitus Myocardial infarction Heart failure Mother Dementia Denies family history of Ovarian cancer Prostate cancer Breast cancer Colorectal cancer Social History Smoking Status: Former smoker Tobacco Type: Cigarettes Cigarettes Per Day: QUIT 1971; Second Hand Exposure: No; Hx Alcohol Use: No Hx Substance Use: No Preferred Language: Barbadian Communication Ability: Effective Visual Impairment: Limited Coat Padder Required: Yes and No Beliefs That Will Affect Care: None marital status: Current Living Situation: Rehab current occupational status: retired Feels Safe at Home: Yes Dental Care, Regularly: Yes Seatbelt Use: always Sunscreen Use: Yes Assistive Devices: Denture - Upper, Denture - Lower and Walker Review of Systems Review of Systems: Unobtainable due to cognitive status Physical Exam Constitutional: well developed, + thin and + frail appearing; no acute distress Eyes: + anicteric sclerae; no corneal abnormality ENMT: Mouth: + dry oral mucous membranes; no oral mucosal abnormality Neck: normal visual inspection and trachea midline RIJ TDC Respiratory: normal respiratory effort Auscultation: lungs clear to auscultation bilaterally Cardiovascular: Rate/Rhythm: regular rate Heart Sounds: normal S1 and normal S2 Vessels: no JVD Extremities: no edema Musculoskeletal: Extremities: no cyanosis and no clubbing Skin: + turgor decreased; no lesions Neurologic: awake and + confused Motor/Sensory: + tremor; no asterixis Psychiatric: Orientation: alert, oriented to person and oriented to place Results & Data ([facility]) Vital Signs (Past 12 Hours) Vital Signs Temp Pulse Pulse Pulse Resp BP BP 02/26/21 07:50 36.5 C 74 20 153/78 H 02/26/21 02:54 36.3 C L 71 18 172/94 H 02/26/21 02:04 67 02/26/21 00:34 36.5 C 66 18 186/80 H 02/26/21 00:00 63 14 133/102 H 02/25/21 23:30 65 4 L 156/84 H 02/25/21 23:00 67 6 L 156/101 H 02/25/21 22:30 69 16 171/88 H 02/25/21 22:20 66 16 02/25/21 22:00 60 9 L 168/100 H 02/25/21 21:50 66 11 L 155/83 H Pulse Ox 02/26/21 07:50 100 02/26/21 02:54 98 02/26/21 02:04 02/26/21 00:34 94 02/26/21 00:00 100 02/25/21 23:30 100 02/25/21 23:00 100 02/25/21 22:30 100 02/25/21 22:20 100 02/25/21 22:00 100 02/25/21 21:50 100 Laboratory Results Laboratory Results - last 24 hr 02/25/21 02/25/21 02/25/21 19:50 19:50 19:50 WBC 5.17 RBC 4.50 L Hgb 13.1 L Hct 40.8 L MCV 90.7 MCH 29.1 MCHC 32.1 RDW Std Deviation 56.3 H RDW Coeff of Penelope 17.1 H Plt Count 131 MPV 10.1 Immature Gran % (Auto) 0.4 Neut % (Auto) 62.9 Lymph % (Auto) 28.4 [place] % (Auto) 6.4 Eos % (Auto) 1.7 Baso % (Auto) 0.2 Neut # (Auto) 3.25 Lymph # (Auto) 1.47 [place] # (Auto) 0.33 Eos # (Auto) 0.09 Baso # (Auto) 0.01 Immature Gran # (Auto) 0.02 PT 11.1 INR 1.1 VBG pH VBG pCO2 VBG pO2 VBG HCO3 VBG O2 Saturation VBG Base Excess Barometric Pressure Sodium 135 L Potassium 4.3 Chloride 103 Carbon Dioxide 28 Anion Gap 4.0 BUN 22 H Creatinine 2.78 H Est Cr Clr Drug Dosing 17.7 Est GFR ( Amer) 23.8 Est GFR (Non-Af Amer) 20.6 BUN/Creatinine Ratio 8.0 L Glucose 175 H POC Glucose Lactate Calcium 11.2 H Phosphorus 2.8 Magnesium 1.9 Total Bilirubin 0.4 AST 12 L ALT 14 Alkaline Phosphatase 104 Ammonia Troponin I < 0.015 Total Protein 6.4 Albumin 3.0 L Globulin 3.4 Albumin/Globulin Ratio 0.9 TSH 9.810 H Free T4 1.22 Urine Color Urine Appearance Urine pH Ur Specific [place] Urine Protein Urine Glucose (UA) Urine Ketones Urine Blood Urine Nitrite Urine Bilirubin Urine Urobilinogen Ur Leukocyte Esterase Urine WBC (Auto) Urine RBC (Auto) U Hyaline Cast (Auto) U Epithel Cells (Auto) Urine Bacteria (Auto) Ur Renal Epithelial Cell Amorphous Sediment Nasal Screen MRSA (PCR) COVID-19 Eval Order SARS-CoV-2 (PCR) Influenza Type A (PCR) Influenza Type B (PCR) RSV (RT-PCR) 02/25/21 02/25/21 02/25/21 21:03 21:03 22:29 WBC RBC Hgb Hct MCV MCH MCHC RDW Std Deviation RDW Coeff of Penelope Plt Count MPV Immature Gran % (Auto) Neut % (Auto) Lymph % (Auto) [place] % (Auto) Eos % (Auto) Baso % (Auto) Neut # (Auto) Lymph # (Auto) [place] # (Auto) Eos # (Auto) Baso # (Auto) Immature Gran # (Auto) PT INR VBG pH VBG pCO2 VBG pO2 VBG HCO3 VBG O2 Saturation VBG Base Excess Barometric Pressure Sodium Potassium Chloride Carbon Dioxide Anion Gap BUN Creatinine Est Cr Clr Drug Dosing Est GFR ( Amer) Est GFR (Non-Af Amer) BUN/Creatinine Ratio Glucose POC Glucose Lactate 1.7 Calcium Phosphorus Magnesium Total Bilirubin AST ALT Alkaline Phosphatase Ammonia 11.8 Troponin I Total Protein Albumin Globulin Albumin/Globulin Ratio TSH Free T4 Urine Color Urine Appearance Urine pH Ur Specific [place] Urine Protein Urine Glucose (UA) Urine Ketones Urine Blood Urine Nitrite Urine Bilirubin Urine Urobilinogen Ur Leukocyte Esterase Urine WBC (Auto) Urine RBC (Auto) U Hyaline Cast (Auto) U Epithel Cells (Auto) Urine Bacteria (Auto) Ur Renal Epithelial Cell Amorphous Sediment Nasal Screen MRSA (PCR) COVID-19 Eval Order SARS-CoV-2 (PCR) Influenza Type A (PCR) Influenza Type B (PCR) RSV (RT-PCR) 02/25/21 02/25/21 02/25/21 22:44 22:44 22:44 WBC RBC Hgb Hct MCV MCH MCHC RDW Std Deviation RDW Coeff of [place]elope Plt Count MPV Immature Gran % (Auto) Neut % (Auto) Lymph % (Auto) [place] % (Auto) Eos % (Auto) Baso % (Auto) Neut # (Auto) Lymph # (Auto) [place] # (Auto) Eos # (Auto) Baso # (Auto) Immature Gran # (Auto) PT INR VBG pH VBG pCO2 VBG pO2 VBG HCO3 VBG O2 Saturation VBG Base Excess Barometric Pressure Sodium Potassium Chloride Carbon Dioxide Anion Gap BUN Creatinine Est Cr Clr Drug Dosing Est GFR ( Amer) Est GFR (Non-Af Amer) BUN/Creatinine Ratio Glucose POC Glucose Lactate Calcium Phosphorus Magnesium Total Bilirubin AST ALT Alkaline Phosphatase Ammonia Troponin I Total Protein Albumin Globulin Albumin/Globulin Ratio TSH Free T4 Urine Color Dark Yellow Urine Appearance Cloudy A Urine pH 5.0 Ur Specific [place] 1.022 Urine Protein 3+ H Urine Glucose (UA) Negative Urine Ketones Negative Urine Blood Negative Urine Nitrite Negative Urine Bilirubin Negative Urine Urobilinogen Negative Ur Leukocyte Esterase Negative Urine WBC (Auto) 1-5 Urine RBC (Auto) 0-4 U Hyaline Cast (Auto) 1-5 U Epithel Cells (Auto) >30 H Urine Bacteria (Auto) Negative Ur Renal Epithelial Cell Not Reportable Amorphous Sediment Present A Nasal Screen MRSA (PCR) COVID-19 Eval Order CovFluRsv at [facility] SARS-CoV-2 (PCR) NEGATIVE Influenza Type A (PCR) Negative Influenza Type B (PCR) Negative RSV (RT-PCR) Negative 02/26/21 02/26/21 02/26/21 06:56 10:02 Unknown WBC RBC Hgb Hct MCV MCH MCHC RDW Std Deviation RDW Coeff of Penelope Plt Count MPV Immature Gran % (Auto) Neut % (Auto) Lymph % (Auto) [place] % (Auto) Eos % (Auto) Baso % (Auto) Neut # (Auto) Lymph # (Auto) [place] # (Auto) Eos # (Auto) Baso # (Auto) Immature Gran # (Auto) PT INR VBG pH 7.33 L VBG pCO2 54 H VBG pO2 30 VBG HCO3 28 VBG O2 Saturation < 60.0 VBG Base Excess 1.3 Barometric Pressure 730.5 Sodium Potassium Chloride Carbon Dioxide Anion Gap BUN Creatinine Est Cr Clr Drug Dosing Est GFR ( Amer) Est GFR (Non-Af Amer) BUN/Creatinine Ratio Glucose POC Glucose Pending Lactate Calcium Phosphorus Magnesium Total Bilirubin AST ALT Alkaline Phosphatase Ammonia Troponin I Total Protein Albumin Globulin Albumin/Globulin Ratio TSH Free T4 Urine Color Urine Appearance Urine pH Ur Specific [place] Urine Protein Urine Glucose (UA) Urine Ketones Urine Blood Urine Nitrite Urine Bilirubin Urine Urobilinogen Ur Leukocyte Esterase Urine WBC (Auto) Urine RBC (Auto) U Hyaline Cast (Auto) U Epithel Cells (Auto) Urine Bacteria (Auto) Ur Renal Epithelial Cell Amorphous Sediment Nasal Screen MRSA (PCR) Positive A COVID-19 Eval Order SARS-CoV-2 (PCR) Influenza Type A (PCR) Influenza Type B (PCR) RSV (RT-PCR) PG Care Time/CCT Total # of Minutes Spent Total Time Spent with Patient: Total time spent is greater than 50% in coordination of care (as documented) at patient's floor/unit and/or counseling patient: Coding Level of Care Code 05579 Inpt Consult Level 4 Diagnoses AMS (altered mental status) R41.82 Altered mental status type: unspecified ESRD (end stage renal disease) on dialysis N18.6; Z99.2 Anemia N18.6; D63.1; Z99.2 Anemia type: due to chronic kidney disease Chronic kidney disease stage: on chronic dialysis Liver transplant status Z94.4 Hypertension I10 Hypertension type: unspecified Hypercalcemia E83.52 (1) Anemia Anemia type: due to chronic kidney disease Chronic kidney disease stage: on chronic dialysis Qualified Code(s): N18.6 - End stage renal disease; D63.1 - Anemia in chronic kidney disease; Z99.2 - Dependence on renal dialysis (2) AMS (altered mental status) Altered mental status type: unspecified Qualified Code(s): R41.82 - Altered mental status, unspecified (3) Hypertension Hypertension type: unspecified Qualified Code(s): I10 - Essential (primary) hypertension
[2021-02-26] MEDS: INSULIN ASPART 100 UNITS/ML 3 ML PEN SC SCH ×3 (10:38→17:12)
[2021-02-26] MEDS: INSULIN GLARGINE SOLOSTAR 100 UNITS/ML 3 ML PEN SC SCH (11:08)
[2021-02-26] MEDS: D5W AND 1/2NSS 1,000 ML IV SCH (11:39)
--- NOTE | 2021-02-26 12:16 | Electrocardiogram Report ---
Test Reason : Blood Pressure : / mmHG Vent. Rate : 065 BPM Atrial Rate : 208 BPM P-R Int : 000 ms QRS Dur : 102 ms QT Int : 394 ms P-R-T Axes : 000 001 167 degrees QTc Int : 409 ms Atrial fibrillation with premature ventricular or aberrantly conducted complexes Abnormal ECG When compared with ECG of 08-FEB-2021 17:21, Vent. rate has decreased BY 55 BPM T wave amplitude has decreased in Anterior leads Confirmed by Jared Ponce ([id number]) on 02/26/2021 12:15:51 PM Referred By: REFERRED SELF Confirmed By:Ronni Ponce
--- NOTE | 2021-02-26 14:17 | Palliative Care Consultation ---
Date of Consultation February 26, 2021 Assessment & Plan (1) Palliative care encounter: Mr. Herrera was admitted to [facility] with lethargy from [facility] [place] He is a known patient to the palliative medicine service and he has a complex PMH that includes CKD stage 5, A-fib, liver transplant, HTN, and DM2. His baseline creatinine is 4.55 and he has recently made the decision during his last admission in January to begin hemodialysis which he has been continuing with every M,W,F. His mental status has fluctuated this admission and he has been kept NPO as he failed his swallowing screening. Palliative Medicine has been consulted to address goals of care. I met with Mr. Herrera in his room. He was sleepy, but arousable. Per nursing, he was pretty lethargic most of the morning, but did perk up and actually stood and walked a few steps. He was very hard of hearing during my conversation with him, but I do not know that he is overly confused. Will have to reevaluate when his brings in his hearing aids. Last admission, he was clear that he wanted to see how it went with dialysis. He does still have his temporary catheter as his fistula has not matured yet. Last admission, I spoke about Lawrence's code status and he indicated that he would not like to be kept alive on machines and would rather be kept comfortable and allow a natural in the event of a cardiac or respiratory arrest. Pt is DNR/DNI. I did reach out to Dhara, his at [phone] but did not have positive contact. Palliative medicine will follow. (2) AMS (altered mental status): Waxes and wanes. Has been on BiPap since being admitted which has helped. He does ambulate with PT. Altered mental status type: unspecified Qualified Code(s): R41.82 - Altered mental status, unspecified (3) ESRD (end stage renal disease) on dialysis: Baseline creat is 4.55. Has been tolerating HD M,W,F since January (4) Dysphagia: Currently NPO due to him failing swallow screening. Awaiting ST consult and recommendations. History of Present Illness Reason for Consultation: Goals of Care Requesting Physician: Dr. Brown Attending Physician: Juan David Figueroa MD History of Present Illness Mr. Herrera was admitted to [facility] with lethargy from [facility] [place]. He is a known patient to the palliative medicine service and he has a complex PMH that includes CKD stage 5, Afib, liver transplant, HTN, and DM2. His baseline creatinine is 4.55 and he has recently made the decision during his last admission in January to begin hemodialysis which he has been continuing with every M,W,F. His mental status has fluctuated this admission and he has been kept NPO as he failed his swallowing screening. Palliative Medicine has been consulted to address goals of care. Please see A/P for further details. Thank you kindly for involving palliative medicine with this individual. Allergies Allergy/AdvReac Type Severity Reaction Status Date / Time aspirin AdvReac Unknown high doses Verified 02/25/21 22:11 contrindicated d/t hx liver transplant gabapentin AdvReac Unknown shakiness Verified 02/25/21 22:11 and impaired mobility ibuprofen AdvReac Unknown not to Verified 02/25/21 22:11 take due to transplant Home Medications Medication Instructions Recorded Confirmed Type prednisone 5 mg PO QAM 01/09/19 02/25/21 History ursodiol 300 mg PO BID 01/09/19 02/25/21 History lidocaine 5 % topical patch 1 patch TOP DAILY PRN 08/10/19 02/25/21 History polyethylene glycol 3350 17 gram 17 gm PO DAILY PRN 08/10/19 02/25/21 History oral powder packet apixaban 2.5 mg tablet 2.5 mg PO BID #60 tab 08/21/20 02/25/21 Rx meclizine 25 mg tablet 25 mg PO DAILY PRN #30 tab 10/09/20 02/25/21 Rx Tresiba FlexTouch U-100 10 unit SUBCUT QAM 11/21/20 02/25/21 History donepezil 10 mg PO HS 11/21/20 02/25/21 History dutasteride 0.5 mg PO DAILY 11/21/20 02/25/21 History fludrocortisone 0.1 mg PO QPM 11/21/20 02/25/21 History tacrolimus [Prograf] 2 mg PO BID 11/21/20 02/25/21 History tamsulosin [Flomax] 0.4 mg PO QPM 11/21/20 02/25/21 History metoprolol succinate 50 mg 100 mg PO BID #120 tab 01/01/21 02/25/21 Rx tablet,extended release 24 hr cyanocobalamin (vitamin B-12) 1,000 mcg PO DAILY #30 cap 01/09/21 02/25/21 Rx 1,000 mcg capsule acetaminophen [Tylenol Extra 500 mg PO Q8H MDD 2000MG 02/25/21 02/25/21 History Strength] amlodipine 5 mg PO DAILY 02/25/21 02/25/21 History bisacodyl 10 mg CA DAILY PRN 02/25/21 02/25/21 History darbepoetin lino-albumin See Rx Instructions .ROUTE .COMPLEX 02/25/21 02/25/21 History docusate sodium 100 mg PO BID 02/25/21 02/25/21 History magnesium hydroxide [Milk Of 30 ml PO DAILY PRN 02/25/21 02/25/21 History Magnesia Concentrated] melatonin 12 mg PO HS PRN 02/25/21 02/25/21 History sennosides-docusate sodium 1 tab-cap PO .LUNCH PRN 02/25/21 02/25/21 History [Senokot-S] venlafaxine 75 mg PO QAM 02/25/21 02/25/21 History Patient History Medical History (Updated 02/26/21 @ 14:17 by TRUPTI Barnes) Anemia Atrial fibrillation dx 08/2020 - on Eliquis -- follows with Dr. Madrigal Bright red rectal bleeding Cancer SKIN CANCER-BASAL CELL/SQUAMOUS CHF (congestive heart failure) CKD (chronic kidney disease) Stage 4 - Follows with Dr. Rider Compression fracture Depression, major, recurrent, in remission Diarrhea Diverticular disease DM type 2 (diabetes mellitus, type 2) IDDM Dysphagia Hypertension Palliative care encounter Pancreatitis HX Pericardial effusion Pericardial effusion chronic Sclerosing cholangitis S/P liver transplant 1994 Secondary hyperparathyroidism of renal origin Sleep apnea BiPAP Vitamin D deficiency Surgical History Fusion of spine LUMBAR H/O exploratory laparotomy History of appendectomy History of cholecystectomy History of colonoscopy History of esophagogastroduodenoscopy (EGD) History of herniorrhaphy X 2 History of liver biopsy History of oral surgery Posts implanted in mandible for bottom denture History of tooth extraction S/P dialysis catheter insertion (02/05/21) Insertion of Tunneled Dialysis Catheter, Right Jugular Approach, Ultrasound Localization of Right Jugular Vein, Fluoroscopy for Positioning Dr. Dale 02/05/2021 Transplant LIVER 1995 IN [place] ([facility]) Family History Father Family history of diabetes mellitus Myocardial infarction Heart failure Mother Dementia Denies family history of Ovarian cancer Prostate cancer Breast cancer Colorectal cancer Social History Smoking Status: Former smoker Tobacco Type: Cigarettes Cigarettes Per Day: QUIT 1971; Second Hand Exposure: No; Hx Alcohol Use: No Hx Substance Use: No Preferred Language: Sami Communication Ability: Unable Visual Impairment: Limited Senior Editor Required: Yes and No Beliefs That Will Affect Care: None marital status: Current Living Situation: Rehab current occupational status: retired Feels Safe at Home: Yes Dental Care, Regularly: Yes Seatbelt Use: always Sunscreen Use: Yes Assistive Devices: Denture - Upper, Denture - Lower and Walker Review of Systems Review of Systems: West System Assessment Scale: Tiredness: 2/3 Drowsiness: 1/3 Shortness of breath: 0/3 Lack of Appetite: 0/3 Pain: 1/3 Palliative Performance Scale: 30% Physical Exam Constitutional: + frail appearing and cooperative Neck: trachea midline, no thyromegaly Respiratory: normal respiratory effort Auscultation: + diminished lung sounds Cardiovascular: Rate/Rhythm: regular rate and regular rhythm Heart Sounds: normal S1 and normal S2 Extremities: normal capillary refill; no edema Gastrointestinal (Abdomen): normal bowel sounds, soft, nontender, no hepatosplenomegaly Skin: + pallor R Subclavian temporary dialysis catheter Psychiatric: Orientation: alert, oriented to person and oriented to place Insight: + impaired insight Judgement: + impaired judgement Results & Data ([facility]) Vital Signs (Past 12 Hours) Vital Signs Temp Pulse Pulse Resp BP Pulse Ox 02/26/21 11:30 36.6 C 80 18 175/92 H 96 02/26/21 07:50 36.5 C 74 20 153/78 H 100 02/26/21 02:54 36.3 C L 71 18 172/94 H 98 PG Care Time/CCT Total # of Minutes Spent Total Time Spent with Patient: Total time spent is greater than 50% in coordination of care (as documented) at patient's floor/unit and/or counseling patient: 50 minutes with > 50% of that time spent assessing the patient, discussing goals of care and collaborating with IDT Coding Level of Care Code 86550 Inpt Consult Level 2 Diagnoses Palliative care encounter Z51.5 AMS (altered mental status) R41.82 Altered mental status type: unspecified ESRD (end stage renal disease) on dialysis N18.6; Z99.2 Dysphagia R13.10 Time Spent (min) 50
[2021-02-26] MEDS: TAMSULOSIN HCL 0.4 MG CAP PO SCH (20:26)
[2021-02-26] MEDS: FLUDROCORTISONE ACETATE 0.1 MG TAB PO SCH (20:26)
[2021-02-26] MEDS: DONEPEZIL HCL 10 MG TAB PO SCH (20:26)
[2021-02-26] MEDS ORDERED: Nursing to Pharmacy Communication SCH (20:30)
[2021-02-27] MEDS: D5W AND 1/2NSS 1,000 ML IV SCH (01:55)
[2021-02-27] MEDS: INSULIN ASPART 100 UNITS/ML 3 ML PEN SC SCH ×5 (01:56→23:39)
[2021-02-27] MEDS ORDERED: METOPROLOL TARTRATE 1 MG/ML VIAL IV ONE (08:17)
[2021-02-27] MEDS: METOPROLOL TARTRATE 1 MG/ML VIAL IV SCH ×2 (08:21→13:13)
--- NOTE | 2021-02-27 08:27 | Hospitalist Progress Note ---
Date of Service February 27, 2021 Assessment & Plan (1) AMS (altered mental status): #AMS (altered mental status): 80yo male with multiple medical comorbidities, recent admission with PermCath placement and discharge to rehabilitation - progressive functional decline over the last 10 days per discussion with . Episode of visual hallucination - seeing spiders on reynoso and cats in room. Episodes possibly preceded by days of not using BiPAP machine. Suspect acute delirium - patient with underlying cognitive impairment, recent hospitalization with discharge to rehab. There is limited indications of an underlying infection, he is VBG indicates 54 which appears to be his baseline, his medication regimen has not changed significantly, and ct is negative. Unfortunately I am concerned the patient is progressing towards terminal deconditioning given that he is unable to participate in therapy and his mental status is worsening. -Frequent orientation and ambulation with assistance as needed -VBG demonstrated PCO2 of 54, similar to previous readings obtained in 2019 and 2020 -Follow cultures NGTD -consult palliative for goals of care #Goals of Care At this point the patient's complex medical history is likely created a terminal condition. Meaningful interaction with the patient will be limited, have requested palliative care's assistance to clarify goals of care. Speech has stated the patient's dysphagia has progressed to the point where we must pursue permissive aspiration or medical administration of nutrition, hydration, and medication. Given the patient's worsening consideration it is important that we establish whether the goals of care are comfort or aggressive medical intervention as soon as possible. -Consulted palliative -Resumed p.o. medication with sips of water #ESRD (end stage renal disease) on dialysis: Chronic. Last HD performed yesterday. No need for acute dialysis at present -Nephrology consulted following recs -Too weak to tolerate hemodialysis -Need goals of care clarified -Renal diet as tolerated #Anemia: Chronic. Stable. On admission Hgb=13.1 which is above average value (?hemoconcentration - patient given 1L NSS in ER). On Aranesp as outpatient -Continue to monitor -trend cbc #dysphagia Previously evaluated on prior admissions, unable to participate in therapy as an outpatient. Goals of care need to be clarified. 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 Worsening cognitive function over the last 10 days reported by patient's - most likely secondary to acute metabolic encephalopathy -Continue Aricept #Liver transplant status: Liver function seems to be intact. No overt evidence of hepatic failure -Continue Program 2mg po BID - states that patient is unable to tolerated generic formulation of this medication and requests that he take his own pills -Continue Prednisone 5mg po qAM -Continue Ursodiol 300mg po BID -Repeat LFTs in AM # Type 2 diabetes mellitus: Chronic -Holding Lantus, cover with SSI -Goal blood sugar 100-1 40 #PAF (paroxysmal atrial fibrillation): Chronic. Presently in SR. Rate of 67 -Continue Metoprolol -Continue Apixaban # Hypertension: Chronic. Hypertensive at present -Continue Amlodipine -Continue Metoprolol -Continue to monitor FENa:Heplock. Monitor electrolytes and replete as needed. CC/ESRD diet. Continue home bowel regimen Code Status: DNR/DNI DVT PPX:Patient on Apixaban to continue PT/OT: Ordered Dispo: Med telemetry, need goals of care clarified. Partha Brown MD PGY 2, FCM This chart was completed utilizing Ninite dictation voice recognition software. Grammatical errors, random word insertions, pronoun errors, and in complete sentences are an occasional consequence of the system. Any questions or concern s about the content, text, or information contained within the body of this dictation should be addressed directly to the physician for clarification. (2) ESRD (end stage renal disease) on dialysis: (3) Anemia: (4) Obstructive sleep apnea: (5) BPH with obstruction/lower urinary tract symptoms: (6) Memory impairment: (7) Liver transplant status: (8) Type 2 diabetes mellitus: (9) PAF (paroxysmal atrial fibrillation): (10) Hypertension: Admission and Anticipated Discharge Date Admission Date: February 25, 2021 Supervising Physician Co-Signing Physician Notes I saw the patient independent of the resident physician and confirmed reeves portions of the history and physical examination. I agree with the impression and plan as noted in the resident documentation I also discussed the case with nephrology early this evening. After discussion with nephrology, it appears that the patient and family are moving towards a palliative approach and are interested in hospice. They have a family member using [facility], and if we can facilitate, they would rather take the patient home versus placement in a facility. The patient would meet hospice criteria based on end-stage renal disease Impression and Plan Delirium in the setting of dementia, dialysis without fever JANES with noncompliance with CPAP, leading to metabolic encephalopathy ESRD on HD Chronic anemia, likely chronic disease 2/2 ESRD - trend CBC Dysphagia s/p liver transplant Will coordinate with case management to facilitate home hospice. Subjective Unable to obtain history, patient minimally able to communicate, kept reaching for bedside table, was unable to explain to me what he was reaching for. Physical Exam Physical Exam: General: Lying in bed not in acute distress HEENT: Normocephalic atraumatic Cardiac: Regular rate and rhythm I did not appreciate significant murmurs rubs or gallops, normal S1, normal S2, negative pedal edema Respiratory: Clear to auscultation bilaterally with symmetrical chest expansion, GI: Soft, nontender, nondistended Neuro: AAO x0 Psych: Calm and cooperative Results & Data Results & Data ([facility]) Vital Signs (Past 12 Hours) Vital Signs Temp Pulse Pulse Resp BP BP Pulse Ox 02/27/21 08:21 116 H 189/94 H 02/27/21 07:35 36.9 C 93 H 20 188/120 H 96 02/27/21 03:00 36.5 C 72 20 191/92 H 95 02/27/21 02:04 93 H 02/26/21 23:44 36.3 C L 84 20 183/89 H 96 Laboratory Results 02/27/21 02/27/21 02/27/21 Range/Units 11:56 07:57 07:57 WBC 10.39 (4.8-10.8) K/uL RBC 4.61 L (4.7-6.1) M/uL Hgb 13.6 L (14.0-18.0) g/dL Hct 40.9 L (42-52) % MCV 88.7 (80-100) fL MCH 29.5 (25-34) pg MCHC 33.3 (32-36) g/dL RDW Std Deviation 55.3 H (36.4-46.3) fL RDW Coeff of Penelope 16.9 H (11.5-14.5) % Plt Count 201 D (130-400) K/uL MPV 10.3 (7.4-10.4) fL Immature Gran % (Auto) 0.3 % Neut % (Auto) 73.9 % Lymph % (Auto) 18.7 % Sharkey % (Auto) 5.6 % Eos % (Auto) 1.3 % Baso % (Auto) 0.2 % Neut # (Auto) 7.69 H (1.4-6.5) K/uL Lymph # (Auto) 1.94 (1.2-3.4) K/uL Sharkey # (Auto) 0.58 (0.11-0.59) K/uL Eos # (Auto) 0.13 (0-0.5) K/uL Baso # (Auto) 0.02 (0-0.2) K/uL Immature Gran # (Auto) 0.03 H (0.00-0.02) K/uL Sodium 134 L (136-145) mmol/L Potassium 3.9 (3.5-5.1) mmol/L Chloride 101 (98-107) mmol/L Carbon Dioxide 25 (21-32) mmol/L Anion Gap 8.0 (3-11) BUN 28 H (7-18) mg/dl Creatinine 3.32 H D (0.6-1.4) mg/dl Est Cr Clr Drug Dosing 16.9 ml/min Est GFR ( Amer) 19.2 Est GFR (Non-Af Amer) 16.6 BUN/Creatinine Ratio 8.4 L (10-20) Glucose 154 H (70-99) mg/dl POC Glucose 111 H (70-99) mg/dl Calcium 10.6 H (8.5-10.1) mg/dl Total Bilirubin 0.6 (0.2-1) mg/dl Direct Bilirubin < 0.1 (0-0.2) mg/dl AST 9 L (15-37) U/L ALT 12 (12-78) U/L Alkaline Phosphatase 109 (45-117) U/L Total Protein 6.1 L (6.4-8.2) gm/dl Albumin 2.9 L (3.4-5.0) gm/dl 02/27/21 02/27/21 Range/Units 06:14 00:25 WBC (4.8-10.8) K/uL RBC (4.7-6.1) M/uL Hgb (14.0-18.0) g/dL Hct (42-52) % MCV (80-100) fL MCH (25-34) pg MCHC (32-36) g/dL RDW Std Deviation (36.4-46.3) fL RDW Coeff of Penelope (11.5-14.5) % Plt Count (130-400) K/uL MPV (7.4-10.4) fL Immature Gran % (Auto) % Neut % (Auto) % Lymph % (Auto) % Sharkey % (Auto) % Eos % (Auto) % Baso % (Auto) % Neut # (Auto) (1.4-6.5) K/uL Lymph # (Auto) (1.2-3.4) K/uL Sharkey # (Auto) (0.11-0.59) K/uL Eos # (Auto) (0-0.5) K/uL Baso # (Auto) (0-0.2) K/uL Immature Gran # (Auto) (0.00-0.02) K/uL Sodium (136-145) mmol/L Potassium (3.5-5.1) mmol/L Chloride (98-107) mmol/L Carbon Dioxide (21-32) mmol/L Anion Gap (3-11) BUN (7-18) mg/dl Creatinine (0.6-1.4) mg/dl Est Cr Clr Drug Dosing ml/min Est GFR ( Amer) Est GFR (Non-Af Amer) BUN/Creatinine Ratio (10-20) Glucose (70-99) mg/dl POC Glucose 142 H 161 H (70-99) mg/dl Calcium (8.5-10.1) mg/dl Total Bilirubin (0.2-1) mg/dl Direct Bilirubin (0-0.2) mg/dl AST (15-37) U/L ALT (12-78) U/L Alkaline Phosphatase (45-117) U/L Total Protein (6.4-8.2) gm/dl Albumin (3.4-5.0) gm/dl Medications Administered Current Inpatient Medications Acetaminophen (Acetaminophen 325 Mg Tab) 650 mg PO Q4H PRN PRN Reason: pain/fever Stop: 03/28/21 01:17 Amlodipine Besylate (Amlodipine Besylate 5 Mg Tab) 5 mg PO DAILY MIRIAM Stop: 03/28/21 08:59 Last Admin: 02/27/21 09:20 Dose: Not Given Documented by: Apixaban (Apixaban 2.5 Mg Tab) 2.5 mg PO BID MIRIAM Stop: 03/28/21 08:59 Last Admin: 02/27/21 09:20 Dose: Not Given Documented by: Bisacodyl (Bisacodyl 10 Mg Supp) 10 mg VA DAILY PRN PRN Reason: Constipation Stop: 03/28/21 01:17 Dextrose (Dextrose 50% 50 Ml Syringe) 25 - 50 ml IV UD PRN; Protocol PRN Reason: Hypoglycemia Protocol Stop: 03/28/21 01:17 Docusate Sodium (Docusate Sodium 100 Mg Cap) 100 mg PO BID MIRIAM Stop: 03/28/21 08:59 Last Admin: 02/27/21 09:20 Dose: Not Given Documented by: Donepezil HCl (Donepezil Hcl 10 Mg Tab) 10 mg PO HS MIRIAM Stop: 03/28/21 20:59 Last Admin: 02/26/21 20:26 Dose: Not Given Documented by: Fludrocortisone Acetate (Fludrocortisone Acetate 0.1 Mg Tab) 0.1 mg PO QPM MIRIAM Stop: 03/28/21 20:59 Last Admin: 02/26/21 20:26 Dose: Not Given Documented by: Glucagon (Glucagon For Inj 1 Mg Vial) 1 mg SQ UD PRN; Protocol PRN Reason: Hypoglycemia Protocol Stop: 03/28/21 01:17 Glucose (Glucose 10 Tabs/Tube) 4 - 8 tabs PO UD PRN; Protocol PRN Reason: Hypoglycemia Protocol Stop: 03/28/21 01:17 Glucose (Glucose 40% Gel 15 Gm Tube) 15 - 30 gm PO UD PRN; Protocol PRN Reason: Hypoglycemia Protocol Stop: 03/28/21 01:17 Dextrose/Electrolytes (D5w Normosol-R) 1,000 mls @ 80 mls/hr IV .[id number] MIRIAM Stop: 03/29/21 09:59 Last Admin: 02/27/21 10:50 Dose: 80 mls/hr Documented by: Insulin Aspart (Insulin Aspart 100 Units/Ml 3 Ml Pen) 0 units SC Q6 [facility] Stop: 03/29/21 00:00 Last Admin: 02/27/21 12:26 Dose: Not Given Documented by: Insulin Glargine (Insulin Glargine Solostar 100 Units/Ml 3 Ml Pen) 10 units SC QAM [facility] Stop: 03/28/21 08:59 Last Admin: 02/27/21 09:41 Dose: 10 units Documented by: Lidocaine (Lidocaine 5% 1 Patch) 1 patch TD DAILY PRN PRN Reason: Pain Stop: 03/28/21 01:17 Magnesium Hydroxide (Magnesium Hydroxide Susp 30 Ml Udc) 30 ml PO DAILY PRN PRN Reason: Constipation Melatonin (Melatonin 3 Mg Tab) 12 mg PO HS PRN PRN Reason: Sleep Stop: 03/28/21 01:17 Metoprolol Succinate (Metoprolol Succ 50mg Ext Rel Tab) 100 mg PO BID [facility] Stop: 03/28/21 08:59 Last Admin: 02/26/21 20:26 Dose: Not Given Documented by: Metoprolol Tartrate (Metoprolol Tartrate 1 Mg/Ml Vial) 5 mg IV Q6 [facility] Stop: 03/29/21 11:59 Last Admin: 02/27/21 13:13 Dose: 5 mg Documented by: Miscellaneous (Dutasteride: Order Awaiting Action) 1 ea N/A QS [facility] Stop: 03/28/21 07:59 Last Admin: 02/27/21 15:47 Dose: Not Given Documented by: Miscellaneous (Remove Lidoderm Patch) 1 ea N/A DAILY@2100 PRN PRN Reason: IF PATCH APPLIED Stop: 03/28/21 20:59 Miscellaneous (Carbohydrates For Hypoglycemia ) 15 - 30 gm PO UD PRN PRN Reason: Hypoglycemia Protocol Stop: 03/28/21 01:17 Polyethylene Glycol (Polyethylene (Miralax) 17 Gm Pack) 17 gm PO DAILY PRN PRN Reason: Constipation Stop: 03/28/21 01:17 Prednisone (Prednisone 5 Mg Tab) 5 mg PO QAM [facility] Stop: 03/28/21 08:59 Last Admin: 02/27/21 09:21 Dose: Not Given Documented by: Senna/Docusate Sodium (Docusate Sodium/Senna 50/8.6mg Tab) 1 tab PO DAILY@1200 PRN PRN Reason: Constipation Stop: 03/28/21 01:17 Tacrolimus (Tacrolimus 1 Mg Cap) 2 mg PO BID [facility] Stop: 03/28/21 08:59 Last Admin: 02/27/21 09:21 Dose: Not Given Documented by: Tamsulosin HCl (Tamsulosin Hcl 0.4 Mg Cap) 0.4 mg PO QPM [facility] Stop: 03/28/21 20:59 Last Admin: 02/26/21 20:26 Dose: Not Given Documented by: Ursodiol (Ursodiol 300 Mg Cap) 300 mg PO BID [facility] Stop: 03/28/21 08:59 Last Admin: 02/27/21 09:21 Dose: Not Given Documented by: Venlafaxine HCl (Venlafaxine Hcl Xr 75 Mg Capxr) 75 mg PO QAM [facility] Stop: 03/28/21 08:59 Last Admin: 02/27/21 09:21 Dose: Not Given Documented by: Resident Activity Tracking Resident Involvement: Resident Care Provided Care Provided: Adult Hospital Medicine (1) Type 2 diabetes mellitus Chronic kidney disease stage: stage 4 (severe) Diabetes mellitus complication detail: with chronic kidney disease Diabetes mellitus complication status: with kidney complications Diabetes mellitus intermodal dispatcher insulin use: with prison use Qualified Code(s): E11.22 - Type 2 diabetes mellitus with diabetic chronic kidney disease; N18.4 - Chronic kidney disease, stage 4 (severe); Z79.4 - FPC (current) use of insulin (2) Anemia Anemia type: due to chronic kidney disease Chronic kidney disease stage: on chronic dialysis Qualified Code(s): N18.6 - End stage renal disease; D63.1 - Anemia in chronic kidney disease; Z99.2 - Dependence on renal dialysis (3) AMS (altered mental status) Altered mental status type: unspecified Qualified Code(s): R41.82 - Altered mental status, unspecified (4) Hypertension Hypertension type: unspecified Qualified Code(s): I10 - Essential (primary) hypertension
[2021-02-27 08:54] LABS: Albumin Level 2.9 gm/dl (3.4-5.0); BUN Creatinine Ratio 8.4 (10-20); Bilirubin Direct < 0.1 mg/dl (0-0.2); Blood Urea Nitrogen 28 mg/dl (7-18); Calcium 10.6 mg/dl (8.5-10.1); Carbon Dioxide 25 mmol/L (21-32); Chloride 101 mmol/L (98-107); Creatinine Clr Calc Pharmacy 16.9 ml/min; Est GFR (African American) 19.2; Est GFR (Non-African American) 16.6; Glucose 154 mg/dl (70-99); Potassium 3.9 mmol/L (3.5-5.1); Sodium 134 mmol/L (136-145)
[2021-02-27 08:57] LABS: Alanine Aminotransferase 12 U/L (12-78); Alkaline Phosphatase 109 U/L (45-117); Aspartate Aminotransferase 9 U/L (15-37); Bilirubin,Total 0.6 mg/dl (0.2-1); Total Protein 6.1 gm/dl (6.4-8.2)
[2021-02-27 08:59] LABS: Hematocrit (blood only) 40.9 % (42-52); Hemoglobin 13.6 g/dL (14.0-18.0); Mean Corpuscular Hemoglobin 29.5 pg (25-34); Mean Corpuscular Hgb Conc 33.3 g/dL (32-36); Mean Corpuscular Volume 88.7 fL (80-100); Mean Platelet Volume 10.3 fL (7.4-10.4); Platelet Count 201 K/uL (130-400); RDW Coefficient of Variation 16.9 % (11.5-14.5); RDW Standard Deviation 55.3 fL (36.4-46.3); Red Blood Count 4.61 M/uL (4.7-6.1); White Blood Count 10.39 K/uL (4.8-10.8)
[2021-02-27 09:18] LABS: Basophils # (auto) 0.02 K/uL (0-0.2); Basophils % (auto) 0.2 %; Eosinophils # (auto) 0.13 K/uL (0-0.5); Eosinophils % (auto) 1.3 %; Immature Granulocytes # (auto) 0.03 K/uL (0.00-0.02); Immature Granulocytes % (auto) 0.3 %; Lymphocytes # (auto) 1.94 K/uL (1.2-3.4); Lymphocytes % (auto) 18.7 %; Monocytes # (auto) 0.58 K/uL (0.11-0.59); Monocytes % (auto) 5.6 %; Neutrophils # (auto) 7.69 K/uL (1.4-6.5); Neutrophils % (auto) 73.9 %
[2021-02-27] MEDS: APIXABAN 2.5 MG TAB PO SCH ×2 (09:20→21:06)
[2021-02-27] MEDS: DOCUSATE SODIUM 100 MG CAP PO SCH ×2 (09:20→21:06)
[2021-02-27] MEDS: amLODIPine BESYLATE 5 MG TAB PO SCH (09:20)
[2021-02-27] MEDS: TACROLIMUS 1 MG CAP PO SCH ×2 (09:21→21:02)
[2021-02-27] MEDS: VENLAFAXINE HCL XR 75 MG CAPXR PO SCH (09:21)
[2021-02-27] MEDS: predniSONE 5 MG TAB PO SCH (09:21)
[2021-02-27] MEDS: ursodioL 300 MG CAP PO SCH ×2 (09:21→21:07)
[2021-02-27] MEDS: INSULIN GLARGINE SOLOSTAR 100 UNITS/ML 3 ML PEN SC SCH (09:41)
--- NOTE | 2021-02-27 10:22 | Nephrology Progress Note ---
Date of Service February 27, 2021 Assessment & Plan (1) AMS (altered mental status): Complicated by underlying dementia and multiple medical comorbidities. No obvious acute etiology. Given Lawrence's multiple medical comorbidities and ESRD, I suspect that his condition is unlikely to significantly improved. His expressed understanding. (2) ESRD (end stage renal disease) on dialysis: Lawrence is currently too fragile and weak to tolerate HD. I do not anticipate significant improvement in his status with dialysis. His expressed understanding. We will hold HD now. I would strongly encourage home with hospice based on my conversation with Dhara today. Lawrence is very passive in the conversation. I will await palliative care input in this regard. D5-normosol continued while NPO. (3) Anemia: BENNY held for Hgb > 11 (4) Liver transplant status: Maintained on prograf and prednisone. (5) Hypertension: BP acceptable. (6) Hypercalcemia: Acute on chronic. Evidence of primary hyperparathyroidism in the past. Immobility contributing. IVF to encourage vascular expansion. Admission and Anticipated Discharge Date Admission Date: February 25, 2021 Subjective Lawrence was very somnolent this AM. He said "Hi, doc" and told me he is doing "so- so." He rolled his eyes and grunted when I asked him about dialysis. He did not answer when I asked him if he wanted to continue treatment. He did tell me to talk to his and that he wanted to go home. I had a long conversation with his on the phone after I met with Lawrence. We discussed his status. Dhara told me that if Lawrence is not going to get better, she would like him home with hospice. She would like to discuss this option in more detail. She understands that his prognosis is poor but was hopeful that there would be improvement. She plans to talk with the palliative care team in more detail today. I told Dhara and Lawrence that his current condition is too weak for me to believe that dialysis would provide significant benefit. We will hold dialysis at this time. Review of Systems Review of Systems: All systems reviewed & are unremarkable except as noted in HPI & below Physical Exam Constitutional: well developed, + thin, + cachectic and + frail appearing; no acute distress Eyes: + anicteric sclerae; no corneal abnormality ENMT: Mouth: + dry oral mucous membranes; no oral mucosal abnormality Neck: normal visual inspection and trachea midline Respiratory: normal respiratory effort Auscultation: lungs clear to auscultation bilaterally Cardiovascular: Rate/Rhythm: regular rate Heart Sounds: normal S1 and normal S2 Vessels: no JVD Extremities: no edema Musculoskeletal: Extremities: no cyanosis and no clubbing Skin: + turgor decreased; no lesions Neurologic: Motor/Sensory: no tremor and no asterixis Psychiatric: very lethargic and minimally conversive Results & Data ([facility]) Vital Signs (Past 12 Hours) Vital Signs Temp Pulse Pulse Resp BP BP Pulse Ox 02/27/21 08:21 116 H 189/94 H 02/27/21 07:35 36.9 C 93 H 20 188/120 H 96 02/27/21 03:00 36.5 C 72 20 191/92 H 95 02/27/21 02:04 93 H 02/26/21 23:44 36.3 C L 84 20 183/89 H 96 Laboratory Results Laboratory Results - last 24 hr 02/26/21 02/27/21 02/27/21 16:35 00:25 06:14 WBC RBC Hgb Hct MCV MCH MCHC RDW Std Deviation RDW Coeff of Penelope Plt Count MPV Immature Gran % (Auto) Neut % (Auto) Lymph % (Auto) Anderson % (Auto) Eos % (Auto) Baso % (Auto) Neut # (Auto) Lymph # (Auto) Anderson # (Auto) Eos # (Auto) Baso # (Auto) Immature Gran # (Auto) Sodium Potassium Chloride Carbon Dioxide Anion Gap BUN Creatinine Est Cr Clr Drug Dosing Est GFR ( Amer) Est GFR (Non-Af Amer) BUN/Creatinine Ratio Glucose POC Glucose 118 H 161 H 142 H Calcium Total Bilirubin Direct Bilirubin AST ALT Alkaline Phosphatase Total Protein Albumin 02/27/21 02/27/21 07:57 07:57 WBC 10.39 RBC 4.61 L Hgb 13.6 L Hct 40.9 L MCV 88.7 MCH 29.5 MCHC 33.3 RDW Std Deviation 55.3 H RDW Coeff of Penelope 16.9 H Plt Count 201 D MPV 10.3 Immature Gran % (Auto) 0.3 Neut % (Auto) 73.9 Lymph % (Auto) 18.7 Anderson % (Auto) 5.6 Eos % (Auto) 1.3 Baso % (Auto) 0.2 Neut # (Auto) 7.69 H Lymph # (Auto) 1.94 Anderson # (Auto) 0.58 Eos # (Auto) 0.13 Baso # (Auto) 0.02 Immature Gran # (Auto) 0.03 H Sodium 134 L Potassium 3.9 Chloride 101 Carbon Dioxide 25 Anion Gap 8.0 BUN 28 H Creatinine 3.32 H D Est Cr Clr Drug Dosing 16.9 Est GFR ( Amer) 19.2 Est GFR (Non-Af Amer) 16.6 BUN/Creatinine Ratio 8.4 L Glucose 154 H POC Glucose Calcium 10.6 H Total Bilirubin 0.6 Direct Bilirubin < 0.1 AST 9 L ALT 12 Alkaline Phosphatase 109 Total Protein 6.1 L Albumin 2.9 L PG Care Time/CCT Total # of Minutes Spent Total Time Spent with Patient: Total time spent is greater than 50% in coordination of care (as documented) at patient's floor/unit and/or counseling patient: Coding Level of Care Code 46807 Subseq Hosp Care Lvl 3 Diagnoses AMS (altered mental status) R41.82 Altered mental status type: unspecified ESRD (end stage renal disease) on dialysis N18.6; Z99.2 Anemia N18.6; D63.1; Z99.2 Anemia type: due to chronic kidney disease Chronic kidney disease stage: on chronic dialysis Liver transplant status Z94.4 Hypertension I10 Hypertension type: unspecified Hypercalcemia E83.52 (1) AMS (altered mental status) Altered mental status type: unspecified Qualified Code(s): R41.82 - Altered mental status, unspecified (2) Anemia Anemia type: due to chronic kidney disease Chronic kidney disease stage: on chronic dialysis Qualified Code(s): N18.6 - End stage renal disease; D63.1 - Anemia in chronic kidney disease; Z99.2 - Dependence on renal dialysis (3) Hypertension Hypertension type: unspecified Qualified Code(s): I10 - Essential (primary) hypertension
[2021-02-27] MEDS: D5W NORMOSOL-R 1,000 ML IV SCH ×2 (10:50→23:33)
[2021-02-27] MEDS: DONEPEZIL HCL 10 MG TAB PO SCH (21:06)
[2021-02-27] MEDS: FLUDROCORTISONE ACETATE 0.1 MG TAB PO SCH (21:07)
[2021-02-27] MEDS: TAMSULOSIN HCL 0.4 MG CAP PO SCH (21:07)
[2021-02-28] MEDS: INSULIN ASPART 100 UNITS/ML 3 ML PEN SC SCH ×4 (05:59→21:16)
[2021-02-28 06:12] LABS: Basophils # (auto) 0.01 K/uL (0-0.2); Basophils % (auto) 0.1 %; Eosinophils # (auto) 0.05 K/uL (0-0.5); Eosinophils % (auto) 0.5 %; Hematocrit (blood only) 40.1 % (42-52); Hemoglobin 13.2 g/dL (14.0-18.0); Immature Granulocytes # (auto) 0.03 K/uL (0.00-0.02); Immature Granulocytes % (auto) 0.3 %; Lymphocytes # (auto) 1.68 K/uL (1.2-3.4); Lymphocytes % (auto) 17.3 %; Mean Corpuscular Hemoglobin 29.1 pg (25-34); Mean Corpuscular Hgb Conc 32.9 g/dL (32-36); Mean Corpuscular Volume 88.5 fL (80-100); Mean Platelet Volume 9.4 fL (7.4-10.4); Monocytes # (auto) 0.68 K/uL (0.11-0.59); Neutrophils # (auto) 7.28 K/uL (1.4-6.5); Neutrophils % (auto) 74.8 %; Platelet Count 138 K/uL (130-400); RDW Coefficient of Variation 16.8 % (11.5-14.5); RDW Standard Deviation 54.2 fL (36.4-46.3); Red Blood Count 4.53 M/uL (4.7-6.1); White Blood Count 9.73 K/uL (4.8-10.8)
[2021-02-28 06:48] LABS: BUN Creatinine Ratio 8.5 (10-20); Calcium 9.6 mg/dl (8.5-10.1); Creatinine Clr Calc Pharmacy 17.3 ml/min; Est GFR (African American) 19.9; Est GFR (Non-African American) 17.1; Potassium 3.7 mmol/L (3.5-5.1)
[2021-02-28] MEDS: INSULIN GLARGINE SOLOSTAR 100 UNITS/ML 3 ML PEN SC SCH (07:54)
[2021-02-28] MEDS: TACROLIMUS 1 MG CAP PO SCH ×2 (07:55→21:09)
[2021-02-28] MEDS: ursodioL 300 MG CAP PO SCH ×2 (07:55→21:10)
[2021-02-28] MEDS: amLODIPine BESYLATE 5 MG TAB PO SCH (07:55)
[2021-02-28] MEDS: DOCUSATE SODIUM 100 MG CAP PO SCH ×2 (07:55→21:10)
[2021-02-28] MEDS: predniSONE 5 MG TAB PO SCH (07:55)
[2021-02-28] MEDS: VENLAFAXINE HCL XR 75 MG CAPXR PO SCH (07:55)
[2021-02-28] MEDS: APIXABAN 2.5 MG TAB PO SCH ×2 (07:55→21:06)
--- NOTE | 2021-02-28 09:06 | Nephrology Progress Note ---
Date of Service February 28, 2021 Assessment & Plan (1) ESRD (end stage renal disease) on dialysis: Goals of care discussed w/ primary service this am. Family has decided to stop dialysis and transition Mr. Herrera to hospice care. Will sign off. Please call if further Nephrology assistance is needed Admission and Anticipated Discharge Date Admission Date: February 25, 2021 Subjective Mr. Herrera was seen & examined in his hospital room this morning. He opened his eyes to verbal stimuli but was nonconversant Review of Systems Review of Systems: Unobtainable due to cognitive status Physical Exam Constitutional: + ill appearing and + frail appearing Eyes: PERRL, conjunctivae normal, anicteric sclerae ENMT: Mouth: + dry oral mucous membranes Neck: R IJ THC w/ clean, dry dressing Respiratory: normal respiratory effort, lungs clear to auscultation Cardiovascular: Rate/Rhythm: regular rate and regular rhythm Gastrointestinal (Abdomen): normal bowel sounds, soft, nontender, no hepatosplenomegaly Skin: + turgor decreased Results & Data ([facility]) Vital Signs (Past 12 Hours) Vital Signs Temp Pulse Pulse Pulse Resp BP Pulse Ox 02/28/21 07:37 36.5 C 103 H 20 188/95 H 02/28/21 03:59 36.6 C 104 H 18 193/94 H 99 02/27/21 23:54 85 02/27/21 23:00 36.7 C 89 20 175/92 H 99 02/27/21 21:29 182/95 H Laboratory Tests 02/28/21 02/28/21 05:45 05:45 WBC 9.73 Hgb 13.2 L Hct 40.1 L Plt Count 138 Sodium 137 Potassium 3.7 Chloride 104 Carbon Dioxide 26 BUN 27 H Creatinine 3.23 H Glucose 166 H Calcium 9.6 PG Care Time/CCT Total # of Minutes Spent Total Time Spent with Patient: Total time spent is greater than 50% in coordina tion of care (as documented) at patient's floor/unit and/or counseling patient: Coding Level of Care Code 56012 Subseq Hosp Care Lvl 2 Diagnoses ESRD (end stage renal disease) on dialysis N18.6; Z99.2
--- NOTE | 2021-02-28 11:23 | Hospitalist Progress Note ---
Date of Service February 28, 2021 Assessment & Plan (1) AMS (altered mental status): Lawrence is an 80-year-old male with end-stage renal disease, liver transplant on tacrolimus, and complex medical history presented with altered mental status and progressive decline over several days. Goals of care discussion 02/28/2021 Extended discussion with patient's Dhara at 1100 hrs by phone. She is aware of his medical condition and progression of end-stage renal disease in addition to multiple medical complexities including liver transplant status, history of A. fib, diabetes, and hypertension. She reports that his rapid decline has been difficult, but she and Lawrence had had discussions about his values prior to this and would not want CPR or intubation under any circumstances. She has discussed his case with nephrology and agree with and understand the decision to not pursue further dialysis. She reports that Lawrence has expressed to her that he would like to be home, and she feels that home hospice is consistent with his values and his current level of illness. She would like him to be transferred home for home hospice to pursue comfort care goals of treatment and would like to use [facility] in [place] who they have had a good experience with in the past. With respect to his medications, she would like to pursue medications on discharge home that improve or help his quality of life, and agree with decision to defer and stop medications that have long-term benefits he is unlikely to see or have side effects that decrease his quality of life. Specifically addressed anticoagulation, and recognize that a stroke would likely be a fatal event for Lawrence with his medical fragility and that his day-to-day risk of stroke is outweighed by the pill burden and risk of bleed. With respect to his Prograf potential benefit over his life expectancy is likely outweighed by the harms including immunosuppression, pill burden, and potential for ROAD DRIVER adverse effects. Agrees with continuing his medications while he is in the hospital with plans to discontinue nonessential meds or meds not contributing to improved quality of life on discharge home. Reports he did not have any equipment at home at this time including a hospital bed available, but would like Lawrence to come home as soon as hospice is able to enroll him in they are able to be set up with necessary supplies. Discussed that we will talk to case management today, and reach out to hospice for further details. She is also aware that in his current condition while we do not anticipate a sudden decline in the next 24 hours, his prognosis is likely on a time scale of days to weeks and preceding event could lead to sudden decline. Continue medications at this time with sips of water/applesauce/pudding as tolerated May have hand feeding as tolerated, is aware of the risk/benefits given his mental status and underlying weakness and then an aspiration event or pneumonia could be an end-of-life event AMS (altered mental status): -Oriented to name, occasionally to hospital only Suspect chronic memory impairment with worsening cognitive function on Aricept at baseline with acute worsening in the setting of metabolic encephalopathy and worsening of his underlying end-stage renal disease -Follow cultures NGTD -Goals of care as above End-stage renal disease on dialysis Discussed with nephrology, nephrology consulted Too weak to tolerate dialysis at this time No further dialysis to be pursued at this time Renal diet, hand fed as tolerated as above Anemia: Chronic, stable No clinical signs of bleeding Defer hemoglobin check at this time Dysphagia Patient is unable to swallow safely due to mental status, weakness, and dysphagia Discussed goals of care as above. 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 -Continue Flomax -Continue Dutasteride Memory impairment: -Continue Aricept, anticipate medication pruning as above Hx of Liver transplant - No overt evidence of hepatic failure -Continue Program 2mg po BID - states that patient is unable to tolerated generic formulation of this medication and requests that he take his own pills -Continue Prednisone 5mg po qAM -Continue Ursodiol 300mg po BID - Anticipate medication evaluation and potential pruning as above Type 2 diabetes mellitus: - Chronic -Holding Lantus, cover with SSI -Goal blood sugar 100-1 40 PAF (paroxysmal atrial fibrillation): - Chronic. Presently in SR. Rate of 67 -Continue Metoprolol -Continue Apixaban Hypertension: -Continue Amlodipine -Continue Metoprolol -Continue to monitor F/E/N: CC/ESRD M&M hand fed as tolerated. Meds with sip of water. Continue home bowel regimen Code Status: DNR/DNI DVT PPX: Apixaban Dispo: Med/Surg, anticipate dc to Home Hospice when able Admission and Anticipated Discharge Date Admission Date: February 25, 2021 Supervising Physician Co-Signing Physician Notes I saw the patient concurrent with the resident physician and confirmed reeves portions of the history and physical examination. I also discussed the case personally with the nephrology advertising consultant. I agree with the impression and plan as noted in the resident documentation. The patient is awake; hard of hearing, no acute distress is appreciated. The patient meets hospice criteria based on end-stage renal disease. Impression and Plan Delirium in the setting of dementia, dialysis without fever JANES with noncompliance with CPAP, leading to metabolic encephalopathy ESRD on HD Chronic anemia, likely chronic disease 2/2 ESRD - trend CBC Dysphagia s/p liver transplant Plan is home hospice, likely on Tuesday once all arrangements can be made (home equipment and services in place). Agree with limited p.o. foods in terms of consistency; certainly a high aspiration risk, although this is more food for comfort. is understanding that aspiration would likely be a terminal event. Harleen Bravo is seen at the bedside this morning. He is somnolent, and awakens to name and voice. He is oriented to name only, intermittently falls asleep during conversation. Denies pain, shortness of breath, difficulty breathing. Does not offer extended spontaneous speech, gives inconsistent answers or no answers to questions about preference for medical treatments. Extensive goals of care discussion with family as below. Care discussion: Extended discussion with patient's Dhara at 1100 hrs by phone. She is aware of his medical condition and progression of end-stage renal disease in addition to multiple medical complexities including liver transplant status, history of A. fib, diabetes, and hypertension. She reports that his rapid decli ne has been difficult, but she and Lawrence had had discussions about his values prior to this and would not want CPR or intubation under any circumstances. She has discussed his case with nephrology and agree with and understand the decision to not pursue further dialysis. She reports that Lawrence has expressed to her that he would like to be home, and she feels that home hospice is consistent with his values and his current level of illness. She would like him to be transferred home for home hospice to pursue comfort care goals of treatment and would like to use [facility] in [place] who they have had a good experience with in the past. With respect to his medications, she would like to pursue medications on discharge home that improve or help his quality of life, and agree with decision to defer and stop medications that have long-term benefits he is unlikely to see or have side effects that decrease his quality of life. Specifically addressed anticoagulation, and recognize that a stroke would likely be a fatal event for Lawrence with his medical fragility and that his day-to-day risk of stroke is outweighed by the pill burden and risk of bleed. With respect to his Prograf potential benefit over his life expectancy is likely outweighed by the harms including immunosuppression, pill burden, and potential for ROAD DRIVER adverse effects. Agrees with continuing his medications while he is in the hospital with plans to discontinue nonessential meds or meds not contributing to improved quality of life on discharge home. Reports he did not have any equipment at home at this time including a hospital bed available, but would like Lawrence to come home as soon as hospice is able to enroll him in they are able to be set up with necessary supplies. Discussed that we will talk to case management today, and reach out to hospice for further details. She is also aware that in his current condition while we do not anticipate a sudden decline in the next 24 hours, his prognosis is likely on a time scale of days to weeks and preceding event could lead to sudden decline. Review of Systems Review of Systems: Unobtainable due to cognitive status Physical Exam Physical Exam: General: Somnolent. Cachectic, thin. Appears medically frail but nontoxic and in no distress. Lethargic-somnilent. R dialysis catheter in place. HEENT: Atraumatic, normocephalic. Dry MM. Pulm: CTAB A&P. -wheezes, -rales, -rhonchi. Symmetrical chest rise. No increase work of breathing. No respiratory distress. Cardiac: mildly tachycardic with regular rate, -mrg Abdominal: Nontender, nondistended, soft. BS present. Ext: Trace pedal edema. Results & Data Results & Data ([facility]) Vital Signs (Past 12 Hours) Vital Signs Temp Pulse Pulse Pulse Resp BP Pulse Ox 02/28/21 10:12 93 H 158/88 H 02/28/21 07:37 36.5 C 103 H 20 188/95 H 02/28/21 03:59 36.6 C 104 H 18 193/94 H 99 02/27/21 23:54 85 Resident Activity Tracking Resident Involvement: Resident Care Provided Care Provided: Adult Hospital Medicine (1) AMS (altered mental status) Altered mental status type: unspecified Qualified Code(s): R41.82 - Altered mental status, unspecified
[2021-02-28] MEDS: D5W NORMOSOL-R 1,000 ML IV SCH (12:13)
[2021-02-28] MEDS ORDERED: Nursing to Pharmacy Communication SCH (12:15)
[2021-02-28] MEDS: FLUDROCORTISONE ACETATE 0.1 MG TAB PO SCH (21:08)
[2021-02-28] MEDS: DONEPEZIL HCL 10 MG TAB PO SCH (21:08)
[2021-02-28] MEDS: TAMSULOSIN HCL 0.4 MG CAP PO SCH (21:10)
[2021-03-01] MEDS: D5W NORMOSOL-R 1,000 ML IV SCH ×2 (00:08→12:29)
[2021-03-01] MEDS: ACETAMINOPHEN 325 MG TAB PO PRN ×2 (05:00→20:46)
[2021-03-01 06:58] LABS: Creatinine Clr Calc Pharmacy 16.7 ml/min; Est GFR (African American) 18.7; Est GFR (Non-African American) 16.2
[2021-03-01] MEDS: ursodioL 300 MG CAP PO SCH ×2 (07:40→20:53)
[2021-03-01] MEDS: VENLAFAXINE HCL XR 75 MG CAPXR PO SCH (07:40)
[2021-03-01] MEDS: DOCUSATE SODIUM 100 MG CAP PO SCH ×2 (07:40→20:47)
[2021-03-01] MEDS: APIXABAN 2.5 MG TAB PO SCH ×2 (07:40→20:40)
[2021-03-01] MEDS: amLODIPine BESYLATE 5 MG TAB PO SCH (07:40)
[2021-03-01] MEDS: TACROLIMUS 1 MG CAP PO SCH ×2 (07:40→20:44)
[2021-03-01] MEDS: predniSONE 5 MG TAB PO SCH (07:40)
[2021-03-01] MEDS: INSULIN ASPART 100 UNITS/ML 3 ML PEN SC SCH ×4 (08:26→20:44)
[2021-03-01] MEDS: INSULIN GLARGINE SOLOSTAR 100 UNITS/ML 3 ML PEN SC SCH (08:26)
--- NOTE | 2021-03-01 12:25 | Hospitalist Progress Note ---
Date of Service March 01, 2021 Assessment & Plan (1) ESRD (end stage renal disease): Lawrence is an 80-year-old male with end-stage renal disease, liver transplant on tacrolimus, and complex medical history presented with altered mental status and progressive decline over several days. Goals of care discussion 02/28/2021 Extended discussion with patient's Dhara at 1100 hrs by phone. She is aware of his medical condition and progression of end-stage renal disease in addition to multiple medical complexities including liver transplant status, history of A. fib, diabetes, and hypertension. She reports that his rapid decline has been difficult, but she and Lawrence had had discussions about his values prior to this and would not want CPR or intubation under any circumstances. She has discussed his case with nephrology and agree with and understand the decision to not pursue further dialysis. She reports that Lawrence has expressed to her that he would like to be home, and she feels that home hospice is consistent with his values and his current level of illness. She would like him to be transferred home for home hospice to pursue comfort care goals of treatment and would like to use [facility] in [place] who they have had a good experience with in the past. With respect to his medications, she would like to pursue medications on discharge home that improve or help his quality of life, and agree with decision to defer and stop medications that have long-term benefits he is unlikely to see or have side effects that decrease his quality of life. Specifically addressed anticoagulation, and recognize that a stroke would likely be a fatal event for Lawrence with his medical fragility and that his day-to-day risk of stroke is outweighed by the pill burden and risk of bleed. With respect to his Prograf potential benefit over his life expectancy is likely outweighed by the harms including immunosuppression, pill burden, and potential for SCRAP BALER adverse effects. Agrees with continuing his medications while he is in the hospital with plans to discontinue nonessential meds or meds not contributing to improved quality of life on discharge home. Reports he did not have any equipment at home at this time including a hospital bed available, but would like Lawrence to come home as soon as hospice is able to enroll him in they are able to be set up with necessary supplies. Discussed that we will talk to case management today, and reach out to hospice for further details. She is also aware that in his current condition while we do not anticipate a sudden decline in the next 24 hours, his prognosis is likely on a time scale of days to weeks and preceding event could lead to sudden decline. Mental status improved today, may have medications, hand feeding, or self feeding as tolerated Patient's condition improved, discussed his current condition with patient and his . Still wish to continue with the plan to proceed home hopefully tomorrow with hospice. Dialysis with significant physical strain, patient and his would like to continue with the plan to stop dialysis and continue hospice with a goal of keeping Lawrence home with quality of life oriented goals. AMS (altered mental status): -Oriented to name, place, improved cognition today. Suspect chronic memory impairment with worsening cognitive function on Aricept at baseline with acute worsening in the setting of metabolic encephalopathy and worsening of his underlying end-stage renal disease with some superimposed delirium. Anticipate potential waxing waning course, but doing well today. 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 -Continue Flomax -Continue Dutasteride Memory impairment: -Continue Aricept, anticipate medication pruning as above Hx of Liver transplant - No overt evidence of hepatic failure -Continue Prograf 2mg po BID - states that patient is unable to tolerated generic formulation of this medication and requests that he take his own pills -Continue Prednisone 5mg po qAM -Continue Ursodiol 300mg po BID - Anticipate medication evaluation and potential pruning as above Type 2 diabetes mellitus: - Chronic -Holding Lantus, cover with SSI -Goal blood sugar 100-1 40 PAF (paroxysmal atrial fibrillation): - Chronic. Presently in SR. 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 I agree with the impression and plan as noted in the resident documentation. The patient is awake; hard of hearing, no acute distress is appreciated. He is actually more interactive today than days previous. Impression and Plan ESRD (previously on HD, now deferred) Hospice appropriate based on end-stage renal disease off of hemodialysis Delirium in the setting of dementia, dialysis without fever JANES with noncompliance with CPAP, leading to metabolic encephalopathy Chronic anemia, likely chronic disease 2/2 ESRD Dysphagia s/p liver transplant Plan is home hospice, likely tomorrow once all arrangements can be made (home equipment and services in place). Foods per comfort is understanding that aspiration would likely be a terminal event. Harleen Bravo is seen at the bedside this morning. He is more alert than previously, opens eyes spontaneously and responds to questions appropriately albeit with some inconsistent answers regarding his medical condition. He reports he would love to get home, and that he has talked to his and their goal is to get him home with home hospice. Review of Systems Review of Systems: Limited by mental status, but EYES: Pupils round equal and react to light, extraocular movements full, no injection. Pain, difficulty breathing, chest pain, abdominal pain, nausea/vomiting, or concerning symptoms this morning. Physical Exam Physical Exam: General: Somnolent, but arousable and improved overall today. Cachectic, thin. Appears medically frail but nontoxic and in no distress. R dialysis catheter in place. HEENT: Atraumatic, normocephalic. Dry MM. Pulm: CTAB A&P. -wheezes, -rales, -rhonchi. Symmetrical chest rise. No increase work of breathing. No respiratory distress. Cardiac: mildly tachycardic with regular rate, -mrg Abdominal: Nontender, nondistended, soft. BS present. Ext: Trace pedal edema. Results & Data Results & Data ([facility]) Vital Signs (Past 12 Hours) Vital Signs Temp Pulse Resp BP Pulse Ox 03/01/21 11:00 36.8 C 88 18 143/75 H 96 03/01/21 08:00 36.7 C 102 H 18 150/79 H 03/01/21 04:18 36.7 C 125 H 20 171/82 H 94 Resident Activity Tracking Resident Involvement: Resident Care Provided Care Provided: Adult Hospital Medicine (1) Anemia Anemia type: due to chronic kidney disease Chronic kidney disease stage: on chronic dialysis Qualified Code(s): N18.6 - End stage renal disease; D63.1 - Anemia in chronic kidney disease; Z99.2 - Dependence on renal dialysis (2) CKD (chronic kidney disease) Chronic kidney disease stage: stage 4 (severe) Qualified Code(s): N18.4 - Chronic kidney disease, stage 4 (severe) (3) AMS (altered mental status) Altered mental status type: unspecified Qualified Code(s): R41.82 - Altered mental status, unspecified
[2021-03-01] MEDS ORDERED: NURSING DECISION MEDICATION ONE (18:00)
[2021-03-01] MEDS ORDERED: MICONAZOLE NITRATE POWDER 43 GM EXT PRN (18:02)
[2021-03-01] MEDS: DONEPEZIL HCL 10 MG TAB PO SCH (20:42)
[2021-03-01] MEDS: FLUDROCORTISONE ACETATE 0.1 MG TAB PO SCH (20:42)
[2021-03-01] MEDS: TAMSULOSIN HCL 0.4 MG CAP PO SCH (20:53)
[2021-03-01] MEDS ORDERED: MoRPHine SULFATE 2 MG/ML CARP IV STA (20:55)
[2021-03-01] MEDS ORDERED: ONDANSETRON 4 MG OD TAB PO STA (21:30)
[2021-03-02] MEDS: D5W NORMOSOL-R 1,000 ML IV SCH (02:20)
[2021-03-02] MEDS: TACROLIMUS 1 MG CAP PO SCH ×2 (08:03→20:39)
[2021-03-02] MEDS: INSULIN ASPART 100 UNITS/ML 3 ML PEN SC SCH ×4 (08:03→20:39)
[2021-03-02] MEDS: APIXABAN 2.5 MG TAB PO SCH ×2 (08:04→20:39)
[2021-03-02] MEDS: amLODIPine BESYLATE 5 MG TAB PO SCH (08:04)
[2021-03-02] MEDS: VENLAFAXINE HCL XR 75 MG CAPXR PO SCH (08:04)
[2021-03-02] MEDS: predniSONE 5 MG TAB PO SCH (08:04)
[2021-03-02] MEDS: ursodioL 300 MG CAP PO SCH ×2 (08:05→20:38)
[2021-03-02] MEDS: DOCUSATE SODIUM 100 MG CAP PO SCH ×2 (08:06→20:39)
[2021-03-02] MEDS: INSULIN GLARGINE SOLOSTAR 100 UNITS/ML 3 ML PEN SC SCH (08:06)
--- NOTE | 2021-03-02 08:11 | Discharge Summary ---
Date of Service March 02, 2021 Admission HPI Per Admitting Provider Lawrence Herrera is an 80yo male presenting with functional decline. Patient had a tunneled HD catheter placed on 02/05/21. He was discharged to [facility] on 02/09/21. His states that he was doing fairly well at [facility] initially. He was ambulating and participating in Physical Therapy. reports that patient was not using his BiPAP for appx 7 days. Starting around 02/15/21 he began to become slightly confused and having hallucinations - seeing spiders on the reynoso and cats in the room. reports a progressive functional decline since appx 02/15/21 - patient is very lethargic, poor speech and difficulty ambulating. He is unable to complete PT and is extremely exhausted. He also has episodes where he doesn't recognize his of 56 years. No additional symptoms -no fever, dysuria, incontinence, vomiting, diarrhea reported from [facility]. No focal deficits. No CP/Palpitations/cough or SOB Admission Exam Per Admitting Provider General: frail, elderly male patient resting comfortably, NAD, non-toxic in appearance, very hard of hearing Skin: warm, dry, intact, bruising of right chest and arm HEENT: NC/AT, PERRL, EOMI, anicteric sclera, conjunctiva without injection, external ear normal to inspection and nontender, nares patent, moist mucus membranes, dentition intact, no oropharyngeal lesions, neck supple, trachea midline, no LAD, no thyromegaly, no JVD Heart: +S1/S2, regular, 3/6 RAMÓN across precordium, right chest permcath present, nontender - no bleeding/drainage/erythema Lungs: equal air entry bilaterally, no rales/rhonchi/wheezes Abd: +BS, soft, NT/ND, no masses/organomegaly/ascites Ext: warm, 2+ pulses in UE/LE bilaterally, no clubbing/cyanosis or edema Neuro: nonfocal, speech intact, no facial droop, moving all extremities on command with equal strength 5/5 Principal Diagnosis Altered mental status and deconditioning secondary to end-stage renal disease complicated by diabetes mellitus and history of liver transplant Discharge Data Allergies Allergy/AdvReac Type Severity Reaction Status Date / Time aspirin AdvReac Unknown high doses Verified 02/25/21 22:11 contrindicated d/t hx liver transplant gabapentin AdvReac Unknown shakiness Verified 02/25/21 22:11 and impaired mobility ibuprofen AdvReac Unknown not to Verified 02/25/21 22:11 take due to transplant Consultations 02/25/21 22:42 ED Decision to Admit Stat 02/26/21 10:09 Consult Palliative Care Routine Ordered Studies 02/25/21 20:33 CT head/brain wo con Urgent Hospital Course (1) ESRD (end stage renal disease): Lawrence is an 80-year-old male with end-stage renal disease, liver transplant on tacrolimus, and complex medical history presented with altered mental status and progressive decline over several days. Goals of care discussion 02/28/2021 Extended discussion with patient's Dhara at 1100 hrs by phone. She is aware of his medical condition and progression of end-stage renal disease in addition to multiple medical complexities including liver transplant status, history of A. fib, diabetes, and hypertension. She reports that his rapid decline has been difficult, but she and Lawrence had had discussions about his values prior to this and would not want CPR or intubation under any circumstances. She has discussed his case with nephrology and agree with and understand the decision to not pursue further dialysis. She reports that Lawrence has expressed to her that he would like to be home, and she feels that home hospice is consistent with his values and his current level of illness. She would like him to be transferred home for home hospice to pursue comfort care goals of treatment and would like to use [facility] in [place] who they have had a good experience with in the past. With respect to his medications, she would like to pursue medications on discharge home that improve or help his quality of life, and agree with decision to defer and stop medications that have long-term benefits he is unlikely to see or have side effects that decrease his quality of life. Specifically addressed anticoagulation, and recognize that a stroke would likely be a fatal event for Lawrence with his medical fragility and that his day-to-day risk of stroke is outweighed by the pill burden and risk of bleed. With respect to his Prograf potential benefit over his life expectancy is likely outweighed by the harms including immunosuppression, pill burden, and potential for [employer] adverse effects. Agrees with continuing his medications while he is in the hospital with plans to discontinue nonessential meds or meds not contributing to improved quality of life on discharge home. Reports he did not have any equipment at home at this time including a hospital bed available, but would like Lawrence to come home as soon as hospice is able to enroll him in they are able to be set up with necessary supplies. Discussed that we will talk to case management today, and reach out to hospice for further details. She is also aware that in his current condition while we do not anticipate a sudden decline in the next 24 hours, his prognosis is likely on a time scale of days to weeks and preceding event could lead to sudden decline. Mental status improved today, may have medications, hand feeding, or self feeding as tolerated Patient's condition improved, discussed his current condition with patient and his . Still wish to continue with the plan to proceed home hopefully tomorrow with hospice. Dialysis with significant physical strain, patient and his would like to continue with the plan to stop dialysis and continue hospice with a goal of keeping Lawrence home with quality of life oriented goals. AMS (altered mental status): -Oriented to name, place, improved cognition today. Suspect chronic memory impairment with worsening cognitive function on Aricept at baseline with acute worsening in the setting of metabolic encephalopathy and worsening of his underlying end-stage renal disease with some superimposed delirium. Anticipate potential waxing waning course, but doing well today. 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 -Continued Flomax -Continued Dutasteride Memory impairment: -Continued Aricept, anticipate medication pruning as above Hx of Liver transplant - No overt evidence of hepatic failure -Continue Prograf 2mg po BID - states that patient is unable to tolerated generic formulation of this medication and requests that he take his own pills -Continue Prednisone 5mg po qAM -Continue Ursodiol 300mg po BID - Anticipate medication evaluation and potential pruning as above Type 2 diabetes mellitus: - Chronic -Holding Lantus, cover with SSI -Goal blood sugar 100-1 40 PAF (paroxysmal atrial fibrillation): - Chronic. Presently in SR. Rate of 67 -Continue Metoprolol -Continue Apixaban Hypertension: -Continue Amlodipine -Continue Metoprolol -Continue to monitor F/E/N: As above, renal diet Code Status: DNR/DNI DVT PPX: Apixaban anticipate discontinuing tomorrow on discharge to hospice Dispo: Med/Surg, anticipate dc to Home Hospice when able (2) Dysphagia: (3) Palliative care encounter: (4) AMS (altered mental status): (5) Goals of care, counseling/discussion: (6) Anemia: (7) Pulmonary hypertension: (8) CKD (chronic kidney disease): (9) Obstructive sleep apnea: (10) Type 2 DM with CKD stage 4 and hypertension: Total Time Total Time Spent Total Time Spent (In Minutes): <30 Discharge Plan Discharge Items Patient Disposition: Hospice - Home Reason For Visit: ABD PAIN Discharge Diagnosis: Altered mental status and deconditioning secondary to end-stage renal disease complicated by diabetes mellitus and history of liver transplant Activity: Resume your previous activity Non-emergency contact: Primary Care Provider Call non-emergency contact if: your pain is not controlled Follow-up/Referrals: Jhonny Cobos DO [Primary Care Provider] - Diet: Dialysis Renal Addtl Attending Provider Instructions: Care instructions: You were admitted to [facility] for treatment of end-stage renal disease. You have been discharged on home hospice. Every attempt has been made to pare down your medications to limit the medication burden on a daily basis. After thorough review of your medication, we have determined that your diabetes medications are not necessary and can be discontinued per your choice. If you would like to continue these medications they may prevent you from becoming excessively dehydrated or experiencing extreme thirst. If you wo uld like to discontinue these medications feel free to. Additionally you were prescribed venlafaxine an antidepressant, if you feels that this medication is helpful to you we may continue this otherwise feel free to discuss with. The other medications evaluated appear to have a greater benefit than risk and stopping them may cause additional pain or discomfort. We recommend you schedule follow-up with your primary care or long-term doctor at your earliest possible convenience to further discuss medication management. A discharge summary will be sent to your primary care physician to ensure continuity of care. Please bring this discharge summary with you to your next office appointment so that your provider can review it at that time. Follow-up appointments: - Keep all your follow-up appointments as already scheduled. If you cannot make an appointment, notify your provider. - Please call to request a follow-up appointment with your primary care physician within one week of discharge. Please let us know if you are unable to obtain an appointment Medications: - Your medication list has been reviewed and reconciled upon discharge to ensure accuracy and continuity of care. - You are provided with a list of all your current medications at this time. Please review this list closely and make note of any changes. - Please take all of your medications exactly as prescribed. - Tell your primary care provider if you cannot afford your medications. - Call your primary care provider if you are having any side effects or any other problems. - Call your primary care provider before taking any over the counter medications or supplements, including herbals and vitamins, because some of these may interact with your current medications and/or make your symptoms worse. Symptoms: Please call your primary care provider for symptoms including, but not limited to: fevers (temperatures greater than 100.4), chills, intractable nausea or vomiting, diarrhea, rash, shortness of breath, bleeding, pain, or if you experience any worsening of the symptoms that brought you to the hospital. For EMERGENCY and VERY SERIOUS health-related issues, such as chest pain, shortness of breath, or sudden onset of the symptoms that brought you to the hospital, you may need to call 911 or go directly to the Emergency Room It has been our privilege to take care of you during your hospital stay. And Above All Else Feel Better! Best Wishes, Partha Brown MD PGY2 Resident, Family & Community Medicine [facility] Residency at [facility] - [address], [address] MC: [address] [place] [address], [place] [address] Lawrence is an 80-year-old male with end-stage renal disease, liver transplant on tacrolimus, and complex medical history presented with altered mental status and progressive decline over several days. Goals of care discussion 02/28/2021 Extended discussion with patient's Dhara at 1100 hrs by phone. She is aware of his medical condition and progression of end-stage renal disease in addition to multiple medical complexities including liver transplant status, history of A. fib, diabetes, and hypertension. She reports that his rapid decli ne has been difficult, but she and Lawrence had had discussions about his values prior to this and would not want CPR or intubation under any circumstances. She has discussed his case with nephrology and agree with and understand the decision to not pursue further dialysis. She reports that Lawrence has expressed to her that he would like to be home, and she feels that home hospice is consistent with his values and his current level of illness. She would like him to be transferred home for home hospice to pursue comfort care goals of treatment and would like to use [facility] in [place] who they have had a good experience with in the past. With respect to his medications, she would like to pursue medications on discharge home that improve or help his quality of life, and agree with decision to defer and stop medications that have long-term benefits he is unlikely to see or have side effects that decrease his quality of life. Specifically addressed anticoagulation, and recognize that a stroke would likely be a fatal event for Lawrence with his medical fragility and that his day-to-day risk of stroke is outweighed by the pill burden and risk of bleed. With respect to his Prograf potential benefit over his life expectancy is likely outweighed by the harms including immunosuppression, pill burden, and potential for [employer] adverse effects. Agrees with continuing his medications while he is in the hospital with plans to discontinue nonessential meds or meds not contributing to improved quality of life on discharge home. Reports he did not have any equipment at home at this time including a hospital bed available, but would like Lawrence to come home as soon as hospice is able to enroll him in they are able to be set up with necessary supplies. Discussed that we will talk to case management today, and reach out to hospice for further details. She is also aware that in his current condition while we do not anticipate a sudden decline in the next 24 hours, his prognosis is likely on a time scale of days to weeks and preceding event could lead to sudden decline. Mental status improved today, may have medications, hand feeding, or self feeding as tolerated Patient's condition improved, discussed his current condition with patient and his . Still wish to continue with the plan to proceed home hopefully tomorrow with hospice. Dialysis with significant physical strain, patient and his would like to continue with the plan to stop dialysis and continue hospice with a goal of keeping Lawrence home with quality of life oriented goals. AMS (altered mental status): -Oriented to name, place, improved cognition today. Suspect chronic memory impairment with worsening cognitive function on Aricept at baseline with acute worsening in the setting of metabolic encephalopathy and worsening of his underlying end-stage renal disease with some superimposed delirium. Anticipate potential waxing waning course, but doing well today. 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 -Continued Flomax -Continued Dutasteride Memory impairment: -Continued Aricept, anticipate medication pruning as above Hx of Liver transplant - No overt evidence of hepatic failure -Continue Prograf 2mg po BID - states that patient is unable to tolerated generic formulation of this medication and requests that he take his own pills -Continue Prednisone 5mg po qAM -Continue Ursodiol 300mg po BID - Anticipate medication evaluation and potential pruning as above Type 2 diabetes mellitus: - Chronic -Holding Lantus, cover with SSI -Goal blood sugar 100-1 40 PAF (paroxysmal atrial fibrillation): - Chronic. Presently in SR. Rate of 67 -Continue Metoprolol -Continue Apixaban Hypertension: -Continue Amlodipine -Continue Metoprolol -Continue to monitor F/E/N: As above, renal diet Code Status: DNR/DNI DVT PPX: Apixaban anticipate discontinuing tomorrow on discharge to hospice Dispo: Med/Surg, anticipate dc to Home Hospice when able Pending Studies at Discharge: No Stand-Alone Forms: My [facility] Medications and DC Order Prescriptions: Continued meclizine 25 mg tablet 25 mg PO DAILY PRN (Reason: VERTIGO) Qty: 30 RF: 5 metoprolol succinate 50 mg tablet extended release 24 hr 100 mg PO BID Qty: 120 RF: 5 lidocaine 5 % adhesive patch,medicated 1 patch TOP DAILY PRN (Reason: Pain) RF: 0 polyethylene glycol 3350 17 gram powder in packet 17 gm PO DAILY PRN (Reason: Constipation) RF: 0 cyanocobalamin (vitamin B-12) 1,000 mcg capsule 1,000 mcg PO DAILY Qty: 30 RF: 0 Eliquis 2.5 mg tablet 2.5 mg PO BID Qty: 60 RF: 5 tacrolimus [Prograf] 1 mg Capsule 2 mg PO BID RF: 0 donepezil 10 mg tablet 10 mg PO HS RF: 0 tamsulosin [Flomax] 0.4 mg capsule 0.4 mg PO QPM RF: 0 fludrocortisone 0.1 mg tablet 0.1 mg PO QPM RF: 0 dutasteride 0.5 mg capsule 0.5 mg PO DAILY RF: 0 Tresiba FlexTouch U-100 100 unit/mL (3 mL) insulin pen 10 unit subcut QAM RF: 0 prednisone 5 mg Tablet 5 mg PO QAM RF: 0 ursodiol 300 mg Capsule 300 mg PO BID RF: 0 docusate sodium 100 mg Capsule 100 mg PO BID RF: 0 magnesium hydroxide [Milk Of Magnesia Concentrated] 2,400 mg/10 mL Suspension 30 ml PO DAILY PRN (Reason: Constipation) RF: 0 bisacodyl 10 mg Suppository 10 mg [place] DAILY PRN (Reason: Constipation) RF: 0 sennosides-docusate sodium [Senokot-S] 8.6-50 mg Tablet 1 tab-cap PO .LUNCH PRN (Reason: Constipation) RF: 0 darbepoetin lino-albumin 100 mcg/0.5 mL Syringe See Rx Instructions .ROUTE .COMPLEX RF: 0 venlafaxine 75 mg Capsule,Extended Release 24hr 75 mg PO QAM RF: 0 acetaminophen [Tylenol Extra Strength] 500 mg Tablet 500 mg PO Q8H MDD 2000MG RF: 0 amlodipine 5 mg Tablet 5 mg PO DAILY RF: 0 melatonin 3 mg Tablet 12 mg PO HS PRN (Reason: Sleep) RF: 0 Discharge Orders: Discharge Order (Routine); Ordered 03/02/21 Ordered By: Partha Brown Admission Data Admit Date/Time: 02/25/21 23:54 Attending Provider: Harjinder Fam Admit Provider: Lorena Brown Primary Care Provider: Jhonny Cobos Other Providers: Lorena Brown ; Maryanne Anaya ; [facility] ; Wilberto Mackenzie Other Interventions: Discharge Summary Assessment (RN) Last Done: 03/02/21 14:42 Supervising Physician Co-Signing Physician Notes I personally examined the patient and verified all reeves points of history and exam, discussed case, and agree with decision making with Dr Brown. hospice set up for home. no new issues noted vitals noted nad heent nc at mmm breathing unlabored no accessory muscles good effort skin no rashes no pallor or icterus esrd - does not want to continue w HD. home on hospice. stable for this. otherwise as above Resident Activity Tracking Resident Involvement: Resident Care Provided Care Provided: Adult Hospital Medicine
--- NOTE | 2021-03-02 18:01 | Billing Data ---
Date of Service March 02, 2021 Coding Level of Care Code D/C Day Management <30 mins
[2021-03-02] MEDS: TAMSULOSIN HCL 0.4 MG CAP PO SCH (20:38)
[2021-03-02] MEDS: FLUDROCORTISONE ACETATE 0.1 MG TAB PO SCH (20:38)
[2021-03-02] MEDS: DONEPEZIL HCL 10 MG TAB PO SCH (20:39)
== END 2021-03-02 21:30 | disposition hospice, home (50) | DRG 947 ==
LOC: ED 19:27 → SUATTDRO 23:54 → 2N 23:54 → 2W 03-01 21:52